=== PATIENT | female | born 1955 | race Caucasian/White ===

== ENCOUNTER 2020-01-31 00:34 | Outpatient (CLI) | payer OTHER, SELFPAY ==
[2020-01-31 17:33] LABS: SARS-CoV-2 RNA PCR Negative
== END 2020-01-31 00:35 | disposition home or self-care (01) ==
LOC: ANHCOVIDDT 00:35
PROVIDERS: Visit Provider Orthopaedic Surgery
DX: Z01.812 Encounter for preprocedural laboratory examination (principal); Z20.828 Contact with and (suspected) exposure to other viral communicable diseases
CPT/HCPCS: 87635; C9803; U0003

== ENCOUNTER 2020-01-31 09:35 | Outpatient (CLI) | payer OTHER, SELFPAY ==
--- NOTE | 2020-01-31 10:06 | ECG_ITS ---
Measurements Intervals [place] Rate: 97 P: 40 AL: 113 QRS: 38 QRSD: 88 T: 51 QT: 370 QTc: 471 Interpretive Statements SINUS RHYTHM WITH SHORT AL INTERVAL BORDERLINE T WAVE ABNORMALITY- INFERIOR LEADS BASELINE ARTIFACT- I, II, III BORDERLINE ECG Electronically Signed On 01-31-2020 10:31:36 CDT by Maurice Hall D.O.
== END 2020-01-31 09:36 | disposition home or self-care (01) ==
LOC: ANHLAB 09:37
PROVIDERS: Visit Provider Anesthesiology
DX: Z87.891 Personal history of nicotine dependence (principal); Z51.81 Encounter for therapeutic drug level monitoring; R94.31 Abnormal electrocardiogram [ECG] [EKG]
CPT/HCPCS: 36415; 93005

== ENCOUNTER 2020-02-03 16:45 | Inpatient (IN) | payer OTHER, SELFPAY ==
[2020-01-30 15:15] VITALS: BMI 47.5
[2020-02-02] VITALS (24 sets, daily range): BP systolic 135–185; BP diastolic 66–92; PULSE 60–96; RESP 10–22; TEMP 36.2–37; O2SAT 92–99; BMI 46.7; BMI 48.6
--- NOTE | 2020-02-02 10:53 | WPDANESEPPF ---
Anes - Initial Pre Proc Eval Procedure: Operation Date: 02/02/20 12:00 Proposed Procedures p Open Reduction Internal Fixation Right Distal Radius Fracture - Bryson Jernigan MD Date/Time: 02/02/20 10:53 Surgeon: Bryson Jernigan MD Pre Op Diagnosis: Right distal radius fracture Patient Data Age: 64 Gender: F Height: 5 ft 5 in Weight: 129.5 kg Allergies Allergy/AdvReac Type Severity Reaction Status Date / Time ACYCLOVIR SODIUM Allergy Severe HIVES Uncoded 01/30/20 15:16 OMEPRAZOLE MAGNESIUM AdvReac Intermediate CAUSES Uncoded 01/30/20 15:16 HYPERVENTILATION SYMPTOMS Home Medications Medication Instructions Recorded Confirmed Type aripiprazole 2 mg tablet 2 mg PO QPM 01/30/20 01/30/20 History duloxetine 20 mg capsule,delayed 20 mg PO BID 01/30/20 01/30/20 History release furosemide 20 mg tablet 20 mg PO QAM PRN 01/30/20 01/30/20 History lamotrigine 25 mg tablet 75 mg PO DAILY 01/30/20 01/30/20 History lorazepam 0.5 mg tablet 0.5 mg PO QID 01/30/20 01/30/20 History pantoprazole 20 mg tablet,delayed 20 mg PO QAM 01/30/20 01/30/20 History release sertraline 25 mg tablet 50 mg PO HS 01/30/20 01/30/20 History trazodone 50 mg tablet 50 mg PO HS 01/30/20 01/30/20 History Patient hx anesthesia problems: none Family hx anesthesia problems: none PMFSH Past Medical History Medical History Anxiety Bipolar 1 disorder Depression GERD (gastroesophageal reflux disease) SIMEON (obstructive sleep apnea) Surgical History Surgical History H/O gastric bypass H/O knee surgery H/O spinal fusion History of cholecystectomy Family History Family History Mother Hypertension Family history of diabetes mellitus in first degree relative Father Cancer Sibling Multiple sclerosis Social History Social History Smoking status: Former smoker Alcohol intake: never Additional living arrangements comments: Ed Su - Gender identity (if verbalized by the patient): Female Anes - Eval Final PreProcedure Day of Procedure 02/02/20 10:53 Patient weight: morbidly obese Heart: regular rate and rhythm Lungs: decreased breath sounds Airway: Mallampati scale class III Neurological: alert and oriented Last oral intake: >/= 8 hours ASA classification: III Emergent: no Anesthetic plan: proceed Anesthesia type and monitoring: general LMA and standard monitoring Informed Consent: The patient's anesthetic plan and its attendant risks and benefits were discussed with the patient/family/POA. Questions were solicited and answers provided to the satisfaction of the patient/family/POA.
[2020-02-02] MEDS: LACTATED RINGERS 1,000 ML 30 ML IV CONT (11:00)
--- NOTE | 2020-02-02 11:17 | WPDHPUPDATE1 ---
History and Physical Update Update Date/Time: 02/02/20 11:17 History and Physical has been reviewed, including an updated exam of the patient. There are NO changes in the patient's condition. Risks, benefits, and alternatives have been discussed and questions answered. Patient agrees to proceed with procedure.
[2020-02-02 11:38] LABS: Blood Urea Nitrogen 12 mg/dL (7-17); Calcium 8.9 mg/dL (8.4-10.2); Carbon Dioxide 30 mmol/L (22-30); Chloride 106 mmol/L (98-107); Estimated CRCL calculation 68 ml/min; Estimated Glomerular Filt Rate 56; Glucose 110 mg/dL (65-105); Sodium 139 mmol/L (137-145)
[2020-02-02] MEDS: ceFAZolin 3 GM/D5W 100 ML 100 ML IVPB (12:07)
[2020-02-02] MEDS: BUPIVACAINE/EPINEPHRINE 0.25% 50 ML VIAL 20 ML INFILTRATE (12:42)
--- NOTE | 2020-02-02 13:56 | PM.PROC ---
Procedure Note - Detailed Date of procedure: 02/02/20 Pre-op diagnosis: Right distal radius fracture Post-op diagnosis: same Procedure performed: ORIF right distal radius Description of procedure: The patient was identified and the proper side identified. she was taken back to the operating room, transferred to the or table positioning supine taking care to pad her torso and extremities. After general anesthetic induction and intubation, a nonsterile tourniquet was placed high on the right arm which was prepped and draped in the usual sterile fashion. The extremity was exsanguinated and tourniquet inflated to 250 mmHg remaining up for approximately 62 minutes. A volar longitudinal incision was made along the FCR tendon distally. The subcutaneous tissue was sharply dissected protecting neurovascular structures. The FCR tendon was released from its sheath and retracted ulnarly. This allowed for the deep fascia of the forearm to be divided longitudinally in line with the incision. Care was taken to protect the volar compartment structures as well as the radial nerve and radial vascular structures. The pronator quadratus was elevated off of the distal radius allowing for inspection of the fracture site. The fracture fragments were disimpacted and able to be realigned virtually anatomically with fluoroscopic assistance. They were secured in this position with a short narrow right plate from the DVR set. The plate was applied with fluoroscopic visualization to avoid penetration of the joint and to ensure optimal hardware placement. Once the plate was secure the overall construct was assessed fluoroscopically on the AP and lateral views. The virtually anatomic reduction was held very nicely. The construct was stable. The wound was irrigated with a copious amount of sterile antibiotic solution. Skin edges were reapproximated with two 0 strata fix and tissue adhesive. Sterile dressing was applied. Tourniquet was released. A well-padded short-arm volar wrist splint was fashioned. The procedure was well tolerated. There were no known intraoperative complications. Estimated blood loss was negligible. Anesthesia: GLMA Surgeon: Bryson Jernigan MD [employer] Worker: Chau Brown Estimated blood loss (mL): 20 Drains: No Packing: No Pathology: none sent Complications: No immediate complications Condition: stable Disposition: PACU
--- NOTE | 2020-02-02 14:37 | SUR.PHASEI ---
02/02/20 1437- family called w/update.
[2020-02-02] MEDS: LABETALOL HCL INJ 100 MG/20 ML VIAL IV PUSH (14:42)
--- NOTE | 2020-02-02 14:43 | SUR.PHASEI ---
02/02/20 1440- dr. aranda called for b/p. orders given. will medicate. states patient may be moved to op recovery to wean o2
--- NOTE | 2020-02-02 17:23 | SUR.PHASEII ---
1530 SPOUSE ED [address]ATED. 1615 DR ARREOLA AWARE PT UNABLE TO KEEP SATS >90% ON ROOM AIR. I.S. ORDERED & INSTRUCTED ON USE. PT GOAL 2100- ONLY ABLE TO REACH 1500. 1630 DR RODGERS AWARE THAT DR ARREOLA RECOMMENDS PT BEING ADMITTED FOR RESPIRATORY PRECAUTIONS. DR RODGERS STATES HE WILL ADMIT WITH HOSPITALIST MANAGEMENT OF RESPIRATORY. SPOUSE ED UPDATED. 1700 PT KEEPING SATS 94-96% ON 3L NC. 1710 SPOUSE ED UPDATED & ROOM NUMBER [id number] GIVEN.
[2020-02-02] MEDS: DULOXETINE HCL 20 MG CAPSULE.DR PO (18:22)
[2020-02-02] MEDS: DOCUSATE SODIUM 100 MG CAPSULE PO (18:22)
[2020-02-02] MEDS: ARIPIPRAZOLE 2 MG TABLET PO (18:23)
[2020-02-02] MEDS: SODIUM CHLORIDE 0.9% IV 1,000 ML 100 ML IV CONT (18:23)
--- NOTE | 2020-02-02 18:35 | ADMGEN ---
This patient, Leydi Su, was admitted to 2 Medical Room 247-. Patient/family oriented to hospital policies and general routines including ID bracelet, bed and alarms, visiting hours, pain management, procedures, bathroom and other care routines, personal items, smoking policy, room service/diet, and visiting hours. Valuables list has been completed. Information on how to activate the Rapid Response Team has been discussed. Patient/Family are encouraged to report perceived risks to care and to ask questions if they do not understand what they are told or what they should do.
[2020-02-02] MEDS: LORAZEPAM 0.5 MG TABLET PO (20:18)
[2020-02-02] MEDS: ceFAZolin 2 GM/D5W 50 ML 2 GM/50 ML BAG IVPB (20:18)
[2020-02-02] MEDS: TRAZODONE HCL 50 MG TABLET PO (20:19)
[2020-02-02] MEDS: SERTRALINE HCL 50 MG TABLET PO (20:19)
--- NOTE | 2020-02-02 23:43 | PM.IMCN ---
Assessment and Plan Assessment and plan (1) Fracture of right distal radius: Qualifiers: Encounter type: initial encounter Fracture type: closed Fracture morphology: Colles' Qualified Code(s): S52.531A - Colles' fracture of right radius, initial encounter for closed fracture Code(s): S52.501A - Unspecified fracture of the lower end of right radius, initial encounter for closed fracture Status: Acute Assessment and Plan: Postop day 0 Postop management per primary service. Postop pain management per primary service. (2) Obstructive sleep apnea on CPAP: Code(s): G47.33 - Obstructive sleep apnea (adult) (pediatric); Z99.89 - Dependence on other enabling machines and devices Status: Acute Assessment and Plan: The patient's postop hypoxia was likely related to her obstructive sleep apnea. Patient's oxygen saturations are stable on CPAP with her usual 3 L nasal cannula bleed in. (3) Bipolar disorder: Qualifiers: Active/Remission status: in remission of unspecified degree Qualified Code(s): F31.70 - Bipolar disorder, currently in remission, most recent episode unspecified Code(s): F31.9 - Bipolar disorder, unspecified Status: Acute Assessment and Plan: Continue the patient's home psychiatric medications. The patient does have mild QT prolongation her preop EKG. This is likely due to the patient's sertraline and trazodone. Given the fact that the patient has been stable on these medications for quite sometime will not make any acute adjustments to them. However, I would avoid adding any other QT prolonging medications such as Zofran. (4) Chronic constipation: Code(s): K59.09 - Other constipation Status: Acute Assessment and Plan: I will start the patient on MiraLax 17 gram p.o. daily. I also discussed the option of adding soluble fiber supplements when she is discharged home. She is aware that she may have increased constipation given her current narcotic use. HPI Data of Consult Consult date: 02/03/20 Requesting Physician: Bryson Jernigan MD Primary Care Provider: ADE,DARRELL Marcano Consult Narrative Narrative: Date and time of patient contact: 02/02/2020 at 11:00 p.m. Leydi Su is a 64 year old female with a past medical history of morbid obesity, obstructive sleep apnea, and bipolar disorder who presented to the hospital for a planned ORIF of the right wrist. The patient had been vacationing in [place] at the end of December when she stumbled walking up a gang plank while visiting a to her stuck traction she landed on the outstretched arm and suffered a distal radius fracture. Her wrist was splinted and she returned home. She reports significant pain with any movement of the wrist. She reports that since surgery her pain is been severe despite the pain medications provided. Postoperatively the patient had some hypoxia in the recovery room. It turns out that the patient has obstructive sleep apnea and is on chronic 3 L nasal cannula bled into her CPAP every night. She does have some shortness of breath on exertion and with conversation but is not much changed from baseline. She denies any cough, congestion, fevers or chills. She does have chronic constipation but does not use a stool softener. She will occasionally use Dulcolax as needed. She denies any hematochezia or melena. She does have come chronic leg swelling is unchanged from baseline. She reports that she had lost about 30 lb but over the last month or so has gained 20 lb back. She had had gastric bypass surgery many years ago and had gotten down to 140 lb at one point. She blames her weight gain on poor dietary choices and her psychiatric medications. She has not had any recent changes in her psychiatric medications. She does have chronic stress urinary incontinence that was unrelieved despite having a bladder suspension surgery in 2017. Noah
[2020-02-03] VITALS (19 sets, daily range): BP systolic 143–186; BP diastolic 56–98; PULSE 64–95; RESP 16–20; TEMP 36.1–36.9; O2SAT 84–97
--- NOTE | ~2020-02-03 | XR_ITS ---
EXAMINATION: XR surgery orthopedic DATE: 02/02/2020 13:25 INDICATION: ORIF distal right radial fracture. TECHNIQUE: 2 fluoroscopic spot images of the right wrist were obtained during procedure performed by Dr. Jernigan. Radiologist was not present for the imaging or procedure. The amount of fluoroscopy time us ed during this procedure was 0.4 minutes. COMPARISON: 02/09/2020 FINDINGS: Interval open reduction internal fixation of the previously seen comminuted extra articular fracture of the metaphyseal region of the distal right radius with volar T plate and screw fixation. Alignment post fixation appears near-anatomic. No other fractures identified. Bone island at the trapezium. Kathia int spaces appear normal. IMPRESSION: 1. Near-anatomic alignment post ORIF of a comminuted extra articular distal right radial fracture. Reviewed, dictated and finalized at location A. IMPRESSION: 1. Near-anatomic alignment post ORIF of a comminuted extra articular distal rig ht radial fracture.
--- NOTE | ~2020-02-03 | XR_ITS ---
EXAMINATION: XR chest 2V DATE: 02/03/2020 17:36 INDICATION: Shortness of breath. TECHNIQUE: Frontal and lateral views of the chest were obtained. COMPARISON: Chest 2 views 07/29/2017, chest CT 07/29/2017 FINDINGS: There is chronic mild elevation of right hemidiaphragm. There is mild atelectasis versus sc arring in the lower lung zones. There are small pleural effusions. No pneumothorax. The heart size is normal. IMPRESSION: 1. Mild atelectasis versus scarring in the lower lung zones. 2. Small pleural effusions. Reviewed, dictated and finalized at location A.
[2020-02-03] MEDS: SODIUM CHLORIDE 0.9% IV 1,000 ML 100 ML IV CONT (04:58)
[2020-02-03] MEDS: ceFAZolin 2 GM/D5W 50 ML 2 GM/50 ML BAG IVPB ×3 (04:58→21:29)
[2020-02-03] MEDS: lamoTRIgine 25 MG TABLET 75 MG PO (08:29)
[2020-02-03] MEDS: PANTOPRAZOLE SOD SESQUIHYDRATE 20 MG TAB PO (08:30)
[2020-02-03] MEDS: DOCUSATE SODIUM 100 MG CAPSULE PO ×2 (08:30→17:23)
[2020-02-03] MEDS: polyethylene glycoL 3350 17 GM POWD.PACK PO (08:30)
[2020-02-03] MEDS: FUROSEMIDE 20 MG TABLET PO (08:30)
[2020-02-03] MEDS: DULOXETINE HCL 20 MG CAPSULE.DR PO ×2 (08:30→17:23)
[2020-02-03] MEDS: LORAZEPAM 0.5 MG TABLET PO ×4 (08:41→21:29)
--- NOTE | 2020-02-03 09:46 | PM.PNORT ---
Progress Note: A&P Assessment and Plan (1) Fracture of right distal radius: Qualifiers: Encounter type: initial encounter Fracture type: closed Fracture morphology: Colles' Qualified Code(s): S52.531A - Colles' fracture of right radius, initial encounter for closed fracture Code(s): S52.501A - Unspecified fracture of the lower end of right radius, initial encounter for closed fracture Status: Acute (2) Obstructive sleep apnea on CPAP: Code(s): G47.33 - Obstructive sleep apnea (adult) (pediatric); Z99.89 - Dependence on other enabling machines and devices Status: Acute Assessment and Plan: 64-year-old female postop day one right distal radius fracture ORIF. Regarding fracture she is doing fine. She apparently is going to be having a home O2 evaluation. Once recommendations are made she will be able to be discharged home I believe. She already has a follow-up with me in about two weeks. She was instructed to call with any questions prior to this. Her surgery was discussed in detail with her. Subjective Subjective Date/Time Seen: 02/03/20 09:46 Post Op day: 1 Principal diagnosis: Status post ORIF right distal radius fracture Interval history: 64-year-old female who had ORIF of right distal radius fracture yesterday. She was having difficulty keeping her sats up yesterday and so was admitted for observation. Had an un eventful night but did get a little lightheaded earlier today when she got up to go to the bathroom. That is being looked into by the hospitalist group. Review of Systems Constitutional: Constitutional: Denies chills and Denies fever(s) Eyes: Eyes: Reports no additional eye complaints ENT: Reports system reviewed and no additional complaints, except as documented Cardiovascular: Cardiovascular: Denies chest pain and Reports dyspnea on exertion (Mildly short of breath while walking today) Respiratory: Respiratory: Reports no additional respiratory complaints and Denies dyspnea on exertion Gastrointestinal: Gastrointestinal: Denies abdominal pain and Denies bloating Exam Const: General: cooperative, no acute distress and alert Nutritional Appearance: other Orientation/consciousness: patient oriented x3 Limitations: no limitations Resp: Effort & Inspection: normal respiratory effort and able to speak in complete sentences GI: Inspection: other Skin: General skin exam: normal color Rashes: no rashes Neuro: General: patient oriented x3 Cognition (Neuro): normal cognition Speech: normal speech Gait exam (Neuro): Other gait observations present Motor exam (neuro): Other motor observations present (Grossly intact to extremities) Sensory Exam: normal sensation Extrem: General: normal to inspection and other Other: Exam of her right upper extremity shows well-positioned splint. Bruising and digits as expected. Full digital motion noted. Intact sensation to all the digits with good capillary refill to the tips of her fingers. Dressing is dry. Objective Data Vital Signs Vital Signs: Vital Signs - 24 hr 02/02/20 13:44 02/02/20 14:00 02/02/20 14:15 Temperature 97.2 F L Pulse Rate 95 96 96 Respiratory Rate 10 L 19 22 H Blood Pressure 157/78 H 167/72 H 178/82 H Pulse Oximetry 96 96 93 02/02/20 14:30 02/02/20 14:42 02/02/20 14:44 Temperature Pulse Rate 95 93 95 Respiratory Rate 21 H 21 H Blood Pressure 175/77 H 185/85 H Pulse Oximetry 93 95 02/02/20 14:55 02/02/20 14:58 02/02/20 15:01 Temperature Pulse Rate 67 78 Respiratory Rate 22 H 22 H Blood Pressure 160/71 H 155/82 H Pulse Oximetry 95 95 96 02/02/20 15:30 02/02/20 16:00 02/02/20 16:30 Temperature Pulse Rate 83 87 87 Respiratory Rate 22 H 22 H 22 H Blood Pressure 136/86 135/70 138/72 Pulse Oximetry 92 93 94 02/02/20 17:00 02/02/20 17:20 02/02/20 17:45 Temperature 98.0 F Pulse Rate 83 69 87 Respiratory Rate 20 20 19 Blood Pressure 159/67 H 160/66 H 146/
--- NOTE | 2020-02-03 11:00 | WPDANESPN ---
Anes - Prog Note Post-Op Date/Time: 02/03/20 11:00 Cardiovascular status: normal Respiratory status: normal Airway patency: baseline Mental status: baseline Post-Op hydration status: normal Vital Signs: Last Vital Signs Temp 36.9 C 02/03/20 10:00 Pulse 78 02/03/20 10:00 Resp 18 02/03/20 10:00 BP 143/67 H 02/03/20 10:00 Pulse Ox 95 02/03/20 10:00 I/O: Intake & Output 02/02/20 02/03/20 02/03/20 23:59 07:59 15:59 Intake Total 200 1240 210 Balance 200 1240 210 Laboratory Tests 02/02/20 11:19 02/02/20 11:19 Sodium 139 Potassium 4.0 Chloride 106 Carbon Dioxide 30 BUN 12 Creatinine 1.00 Estim Creat Clear Calc 68 Estimated GFR 56 L Glucose 110 H Calcium 8.9 Post-procedural complaints: none Patient Feedback: Patient satisfied with anesthetic care.
--- NOTE | 2020-02-03 13:03 | PCRCNOTE ---
Home oxygen evaluation done, patient requires 3L with activity .
--- NOTE | 2020-02-03 13:18 | HOMEO2EVAL ---
Home Oxygen Evaluation RC: Home Oxygen (O2) Evaluation Start: 02/03/20 10:20 Freq: ONCE Status: Active Protocol: RPE Activity Type Activity Date Activity User E-Sign Co-Sign Detail Recorded Client Recorded Date Recorded By Document 02/03/20 12:25 [email or web address] [email or web address] 02/03/20 13:03 DLW Document 02/03/20 12:30 DLW [email or web address] 02/03/20 13:03 DLW Document 02/03/20 12:33 DLW [email or web address] 02/03/20 13:03 DLW Document 02/03/20 12:35 [email or web address] [email or web address] 02/03/20 13:03 DLW 02/03/20 02/03/20 02/03/20 12:25 12:30 12:33 Home O2 Evaluation Test Phase Resting Exercise Exercise Oxygen Delivery Room Air Nasal Cannula Oxygen Flow Rate (L/min) 2 Pulse Oximetry (90-100 %) 94 84 L 87 L Pulse Rate (60-100 beats/min) 86 88 94 Activity Tolerance Good Good Rating of Perceived Dyspnea (PD) +1 Mild, +1 Mild, Noticeable to Noticeable to the Participant the Participant but Not to an but Not to an Observer Observer Ambulation Distance (feet) 75 75 Treatment Charges O2 Evaluation 02/03/20 12:35 Home O2 Evaluation Test Phase Exercise Oxygen Delivery Nasal Cannula Oxygen Flow Rate (L/min) 3 Pulse Oximetry (90-100 %) 94 Pulse Rate (60-100 beats/min) 95 Activity Tolerance Good Rating of Perceived Dyspnea (PD) +1 Mild, Noticeable to the Participant but Not to an Observer Ambulation Distance (feet) 75 Treatment Charges
--- NOTE | 2020-02-03 13:35 | PM.IMPN ---
Progress Note: A&P Assessment and Plan (1) Fracture of right distal radius: Qualifiers: Encounter type: initial encounter Fracture morphology: Colles' Fracture type: closed Qualified Code(s): S52.531A - Colles' fracture of right radius, initial encounter for closed fracture Code(s): S52.501A - Unspecified fracture of the lower end of right radius, initial encounter for closed fracture Status: Acute Assessment and Plan: She is POD#1 ORIF right distal radius. She reports she is doing well and her pain is well controlled. Postop management and pain control per Dr. Jernigan (2) Postoperative hypoxia: Code(s): R09.02 - Hypoxemia; Z98.890 - Other specified postprocedural states Status: Acute Assessment and Plan: Patient became hypoxic in recovery following scheduled outpatient procedure. She became SOB and very slightly dizzy upon returning from the bathroom this morning, which improved with rest. She is currently on 3L per NC and maintaining adequate oxygenation. Home O2 eval was ordered and patient now requiring 3L O2 with exertion, previously not requiring any oxygen with activity Patient was hopeful for discharge today, but given this acute increase in oxygen requirements, I believe further workup is necessary Will obtain CXR to assess for underlying etiology. Differential diagnoses include pneumonia or possible COPD given her smoking history (3) Obstructive sleep apnea on CPAP: Code(s): G47.33 - Obstructive sleep apnea (adult) (pediatric); Z99.89 - Dependence on other enabling machines and devices Status: Acute Assessment and Plan: Patient uses CPAP nightly with 3L O2 nasal cannula bled in. Her recent hypoxia may be related to SIMEON. Continue CPAP use (4) Lower extremity edema: Code(s): R60.0 - Localized edema Status: Acute Assessment and Plan: Patient has 2+ pitting edema. She reports chronic edema but believes it has worsened, likely due to IV fluid rehydration. She does have prn Lasix as a home medication. IV fluids have been discontinued Will administer Lasix 20 mg IV Possible etiology is CHF, in which case this may be contributing to her SOB. Will check CXR and BNP. (5) Falls: Code(s): W19.XXXA - Unspecified fall, initial encounter Status: Acute Assessment and Plan: Patient reports weakness in her legs and occasional falls. She injured her radius in a fall. She reports she was walking normally, became weak, and fell. I will ask PT to evaluate patient and recommendations are appreciated. Patient would benefit from a low intensity exercise program such as regular walking. (6) Chronic constipation: Code(s): K59.09 - Other constipation Status: Acute Assessment and Plan: Patient is frequently constipated. Likely worsened by narcotic pain medication. Continue Miralax and stool softener (7) Bipolar disorder: Qualifiers: Active/Remission status: in remission of unspecified degree Qualified Code(s): F31.70 - Bipolar disorder, currently in remission, most recent episode unspecified Code(s): F31.9 - Bipolar disorder, unspecified Status: Acute Assessment and Plan: Stable at this time. Patient is on several psychiatric medications. Continue the patient's home psychiatric medications. Mildly prolonged QT is noted and likely secondary to medication use. Subjective Date/time seen: 02/03/20 13:35 Interval history: Date of service: 02/03/2020 She reports she is feeling okay today. Her wrist pain is reasonably well controlled. She became slightly dizzy when returning from the bathroom this morning, and she believed this was due to being short of breath. This resolved shortly after resting. She tells me that for some time now, she has noticed she has been weaker in her legs, occasionally becomes dizzy with ambulation, and often becomes sh
[2020-02-03] MEDS: ARIPIPRAZOLE 2 MG TABLET PO (17:23)
[2020-02-03] MEDS: FUROSEMIDE INJ 40 MG/4 ML VIAL 20 MG IV PUSH (17:23)
[2020-02-03 19:49] LABS: NT Pro B Type Natriuretic Pept 1530 PG/ML (5-100)
[2020-02-03] MEDS: SERTRALINE HCL 50 MG TABLET PO (21:29)
[2020-02-03] MEDS: TRAZODONE HCL 50 MG TABLET PO (21:29)
[2020-02-04 06:00] VITALS: BP 165/77; PULSE 76; RESP 12; TEMP 36.7; O2SAT 98
[2020-02-04] MEDS: polyethylene glycoL 3350 17 GM POWD.PACK PO (08:16)
[2020-02-04] MEDS: DULOXETINE HCL 20 MG CAPSULE.DR PO ×2 (08:16→17:15)
[2020-02-04] MEDS: DOCUSATE SODIUM 100 MG CAPSULE PO ×2 (08:16→17:14)
[2020-02-04] MEDS: lamoTRIgine 25 MG TABLET 75 MG PO (08:16)
[2020-02-04] MEDS: PANTOPRAZOLE SOD SESQUIHYDRATE 20 MG TAB PO (08:16)
[2020-02-04] MEDS: LORAZEPAM 0.5 MG TABLET PO ×4 (08:25→20:07)
[2020-02-04 09:02] VITALS: O2SAT 97
--- NOTE | 2020-02-04 11:09 | PM.IMPN ---
Progress Note: A&P Assessment and Plan (1) Postoperative hypoxia: Code(s): R09.02 - Hypoxemia; Z98.890 - Other specified postprocedural states Status: Acute Assessment and Plan: Patient became hypoxic in recovery following scheduled outpatient procedure. She is currently on 3L per NC and maintaining adequate oxygenation. She typically requires 3L only at night. Home O2 eval was ordered and patient now requiring 3L O2 with exertion. CXR reveals mild atelectasis in lower lung and small pleural effusions. Continue supplemental oxygen as needed to achieve pulse ox 92% or above. Continue incentive spirometer Plan to repeat home O2 eval tomorrow following adequate diuresis. I believe SOB is related to fluid overload. (2) Heart failure: Code(s): I50.9 - Heart failure, unspecified Status: Suspected Assessment and Plan: Patient has 2+ pitting edema, likely due to IV fluid rehydration. She reports chronic edema but believes it has worsened. I suspect that her SOB may be related to possible heart failure. BNP was elevated at 1530. CXR reveals normal heart size but does demonstrate small pleural effusions. Patient is increasingly short of breath. Continue IV Lasix Plan for Echo tomorrow (3) Fracture of right distal radius: Qualifiers: Encounter type: initial encounter Fracture morphology: Colles' Fracture type: closed Qualified Code(s): S52.531A - Colles' fracture of right radius, initial encounter for closed fracture Code(s): S52.501A - Unspecified fracture of the lower end of right radius, initial encounter for closed fracture Status: Acute Assessment and Plan: She is POD#2 ORIF right distal radius. She reports she is doing well and her pain is well controlled. Postop management and pain control per Dr. Jernigan (4) Obstructive sleep apnea on CPAP: Code(s): G47.33 - Obstructive sleep apnea (adult) (pediatric); Z99.89 - Dependence on other enabling machines and devices Status: Acute Assessment and Plan: Patient uses CPAP nightly with 3L O2 nasal cannula bled in. Her recent hypoxia may be related to SIMEON. She may have right heart strain related to SIMEON. Continue CPAP titrated to home settings. (5) Falls: Code(s): W19.XXXA - Unspecified fall, initial encounter Status: Acute Assessment and Plan: Patient reports weakness in her legs and occasional falls. She injured her radius in a fall. She reports she was walking normally, became weak, and fell. Continue PT and OT. Their recommendations are appreciated. (6) Chronic constipation: Code(s): K59.09 - Other constipation Status: Acute Assessment and Plan: Patient is frequently constipated. Likely worsened by narcotic pain medication. She did have a bowel movement this morning. Continue Miralax and stool softener (7) Bipolar disorder: Qualifiers: Active/Remission status: in remission of unspecified degree Qualified Code(s): F31.70 - Bipolar disorder, currently in remission, most recent episode unspecified Code(s): F31.9 - Bipolar disorder, unspecified Status: Acute Assessment and Plan: Stable at this time. Patient is on several psychiatric medications. Mildly prolonged QT is noted and likely secondary to medication use. Continue the patient's home psychiatric medications. Subjective Date/time seen: 02/04/20 11:09 Interval history: Date of service: 02/04/2020 She is doing about the same today. She continues to endorse SOB and PINEDA. She also reports that she again got mildly lightheaded upon returning from the bathroom this morning. She has occasional cough. She endorses generalized weakness. She believes her lower extremity edema has improved. She is urinating frequently due to lasix. She had a bowel movement this morning. She denies chest pain, palpitations, nausea, vomiting, abdominal pain, fev
[2020-02-04] MEDS: FUROSEMIDE INJ 40 MG/4 ML VIAL IV PUSH (11:21)
[2020-02-04 14:00] VITALS: BP 155/87; PULSE 70; RESP 18; TEMP 36.5; O2SAT 100
[2020-02-04 15:13] LABS: Basophils Absolute Auto 0.1 K/mm3 (0.0-0.1); Basophils Percent Auto 0.6 % (0.2-1.2); Eosinophils Absolute Auto 0.2 K/mm3 (0-0.3); Eosinophils Percent Auto 1.6 % (0-4.4); Hematocrit 43.3 % (37.0-47.0); Hemoglobin 13.9 g/dL (12.0-15.0); Immature Granulocyte Absolute 0.04 K/mm3 (0.00-0.031); Immature Granulocyte Percent A 0.4 % (0-0.5); Lymphocytes Absolute Auto 1.34 K/mm3 (0.9-3.2); Lymphocytes Percent Auto 14.5 % (18.3-44.2); Mean Corpuscular HGB Conc 32.1 g/dl (32-36); Mean Corpuscular Hemoglobin 30.8 pg (26-34); Mean Platelet Volume 8.5 fl (7.4-10.4); Monocytes Absolute Auto 0.7 K/mm3 (0.1-0.6); Monocytes Percent Auto 7.6 % (2.6-8.5); Neutrophils Percent Auto 75.3 % (45.5-73.1); Platelet Count Result 252 k/mm3 (150-375); Red Blood Count 4.51 M/mm3 (4.2-5.4); Red Cell Distribution Width 13.8 % (11.5-14.5); White Blood Count 9.3 K/mm3 (4.5-10.0)
[2020-02-04 15:25] LABS: Alanine Aminotransferase 12 U/L (4-35); Albumin Level 4.5 g/dL (3.5-5.1); Alkaline Phosphatase 85 U/L (38-126); Aspartate Amino Transferase 32 U/L (14-36); Bilirubin,Total 0.7 mg/dL (0.2-1.3); Blood Urea Nitrogen 10 mg/dL (7-17); Calcium 9.1 mg/dL (8.4-10.2); Carbon Dioxide 34 mmol/L (22-30); Chloride 97 mmol/L (98-107); Estimated CRCL calculation 68 ml/min; Estimated Glomerular Filt Rate 56; Glucose 97 mg/dL (65-105); Potassium 3.5 mmol/L (3.4-5.0); Sodium 140 mmol/L (137-145)
[2020-02-04] MEDS: ARIPIPRAZOLE 2 MG TABLET PO (17:15)
[2020-02-04 19:04] VITALS: O2SAT 95
[2020-02-04] MEDS: TRAZODONE HCL 50 MG TABLET PO (20:07)
[2020-02-04] MEDS: SERTRALINE HCL 50 MG TABLET PO (20:07)
[2020-02-04 21:36] VITALS: BP 182/61; PULSE 91; RESP 18; TEMP 36.7; O2SAT 100
--- NOTE | 2020-02-04 21:58 | PC.NURSE ---
patient refuses gel pads to right wrist/arm. states causes increased pain.
[2020-02-04 22:15] VITALS: PULSE 86; RESP 24; O2SAT 94
[2020-02-05] VITALS (9 sets, daily range): BP systolic 110–152; BP diastolic 67–77; PULSE 76–129; RESP 16–26; TEMP 36.3–36.8; O2SAT 87–100
--- NOTE | 2020-02-05 | ECHO_ITS ---
Patient Info Name: Leydi Su Age: 64 years : 1955 Gender: Female Ht: 64 in Wt: 283 lbs BSA: 2.49 m2 HR: 80 bpm BP: 152 / 77 mmHg Heart Rhythm: Sinus Rhythm Technical Quality: Good Exam Date: 02/05/2020 10:28 AM Exam Location: [facility] Patient Status: Inpatient Admit Date: 02/03/2020 Staff Ordering Physician: Jennifer Michelle PA-C Mooner: Agus Llamas, EDWIN, RT Attending Provider: Bryson Jernigan MD Referring Physician: Viviana ORELLANA; Exam Type: CA echo dop color flow w con Study Info Complete two-dimensional, color flow and Doppler transthoracic echocardiogram is performed with contrast to opacify the left ventricle and to improve the deliniation of the left ventricle endocardial borders. Summary 1. Left ventricular systolic function is normal, estimated at 65-70%. 2. There is mildly increased left ventricular wall thickness. 3. The left ventricular diastolic function is grade I diastolic dysfunction. 4. The aortic valve is not well visualized. 5. There is mild aortic valve stenosis with a peak velocity of 193.39 cm/s, mean gradient of 6 mmHg, and aortic valve area of 2.00 cm2. 6. There is trace mitral valve regurgitation. 7. Unable to estimate PA systolic pressure due to poor spectral resolution of tricuspid regurgitant jet velocity. 8. Technically difficult study with limited views. Left Ventricle Left ventricular chamber dimension is normal. Left ventricular systolic function is normal, estimated at 65-70%. There is mildly increased left ventricular wall thickness. The left ventricular diastolic function is grade I diastolic dysfunction. Right Ventricle Right ventricular chamber dimension is not well visualized. Left Atria Left atrial chamber dimension is mildly enlarged. Right Atria Right atrial chamber dimension is mildly enlarged. Aortic Valve The aortic valve is not well visualized. There is mild aortic valve stenosis with a peak velocity of 193.39 cm/s, mean gradient of 6 mmHg, and aortic valve area of 2.00 cm2. There is no aortic valve regurgitation. Pulmonic Valve The pulmonic valve is not well visualized. There is trace pulmonic regurgitation. Mitral Valve The mitral valve has not well visualized. There is trace mitral valve regurgitation. The mitral valve annulus is mildly calcified. Tricuspid Valve The tricuspid valve leaflets are not well visualized. Unable to estimate PA systolic pressure due to poor spectral resolution of tricuspid regurgitant jet velocity. Pericardium/Pleural The pericardium appears not well visualized. Inferior Vena Cava Normal inferior vena cava with >50% collapse upon inspiration consistent with normal right atrial pressure, 5 mmHg. Aorta The aortic root size at the sinus of Valsalva is normal. Left Ventricular Outflow Tract Name Value Normal LVOT 2D LVOT Diameter 1.87 cm LVOT Doppler LVOT Peak Gradient 6 mmHg LVOT Mean Gradient 3 mmHg LVOT VTI 24.81 cm LVOT VTI/AV VTI Ratio 0.72 LVOT Stroke Volu
[2020-02-05 05:40] LABS: Basophils Percent Auto 0.6 % (0.2-1.2); Eosinophils Absolute Auto 0.2 K/mm3 (0-0.3); Eosinophils Percent Auto 2.4 % (0-4.4); Hematocrit 43.1 % (37.0-47.0); Hemoglobin 14.1 g/dL (12.0-15.0); Immature Granulocyte Absolute 0.04 K/mm3 (0.00-0.031); Immature Granulocyte Percent A 0.6 % (0-0.5); Lymphocytes Absolute Auto 1.37 K/mm3 (0.9-3.2); Lymphocytes Percent Auto 19.4 % (18.3-44.2); Mean Corpuscular HGB Conc 32.7 g/dl (32-36); Mean Corpuscular Hemoglobin 31.3 pg (26-34); Mean Corpuscular Volume 95.8 fl (80-100); Mean Platelet Volume 8.6 fl (7.4-10.4); Monocytes Absolute Auto 0.6 K/mm3 (0.1-0.6); Monocytes Percent Auto 7.9 % (2.6-8.5); Neutrophils Absolute Auto 4.9 K/mm3 (1.3-6.7); Neutrophils Percent Auto 69.1 % (45.5-73.1); Platelet Count Result 264 k/mm3 (150-375); Red Cell Distribution Width 13.7 % (11.5-14.5); White Blood Count 7.1 K/mm3 (4.5-10.0)
[2020-02-05 05:54] LABS: Alanine Aminotransferase 12 U/L (4-35); Albumin Level 4.1 g/dL (3.5-5.1); Alkaline Phosphatase 81 U/L (38-126); Aspartate Amino Transferase 31 U/L (14-36); Bilirubin,Total 0.8 mg/dL (0.2-1.3); Blood Urea Nitrogen 11 mg/dL (7-17); Calcium 8.8 mg/dL (8.4-10.2); Carbon Dioxide 37 mmol/L (22-30); Chloride 95 mmol/L (98-107); Estimated CRCL calculation 75 ml/min; Estimated Glomerular Filt Rate > 60; Glucose 102 mg/dL (65-105); Potassium 3.4 mmol/L (3.4-5.0); Sodium 138 mmol/L (137-145)
[2020-02-05] MEDS: DULOXETINE HCL 20 MG CAPSULE.DR PO (07:55)
[2020-02-05] MEDS: LORAZEPAM 0.5 MG TABLET PO ×2 (07:55→12:43)
[2020-02-05] MEDS: lamoTRIgine 25 MG TABLET 75 MG PO (07:55)
[2020-02-05] MEDS: PANTOPRAZOLE SOD SESQUIHYDRATE 20 MG TAB PO (07:55)
[2020-02-05] MEDS: DOCUSATE SODIUM 100 MG CAPSULE PO (07:56)
[2020-02-05] MEDS: FUROSEMIDE INJ 40 MG/4 ML VIAL IV PUSH (07:56)
[2020-02-05] MEDS: PERFLUTREN LIPID MICROSPHERES 1.5 ML VIAL DILUTED TO 10 ML TOTAL VOLUME IV PUSH (10:59)
--- NOTE | 2020-02-05 14:16 | HOMEO2EVAL ---
Home Oxygen Evaluation RC: Home Oxygen (O2) Evaluation Start: 02/04/20 14:47 Freq: ONCE Status: Active Protocol: RPE Activity Type Activity Date Activity User E-Sign Co-Sign Detail Recorded Client Recorded Date Recorded By Document 02/05/20 13:40 [email or web address] [email or web address] 02/05/20 14:15 ABIODUN Document 02/05/20 13:42 [email or web address] [email or web address] 02/05/20 14:15 ABIODUN Document 02/05/20 13:44 ABIODUN [email or web address] 02/05/20 14:15 ABIODUN Document 02/05/20 13:45 [email or web address] 02/05/20 14:15 ABIODUN Document 02/05/20 13:48 ABIODUN [email or web address] 02/05/20 14:15 ABIODUN Document 02/05/20 13:55 ABIODUN [email or web address] 02/05/20 14:15 ABIODUN 02/05/20 02/05/20 02/05/20 13:40 13:42 13:44 Home O2 Evaluation Test Phase Exercise Exercise Exercise Oxygen Delivery Room Air Nasal Cannula Nasal Cannula Oxygen Flow Rate (L/min) 1 2 Pulse Oximetry (90-100 %) 87 L 87 L 87 L Pulse Rate (60-100 beats/min) 100 111 H 128 H Activity Tolerance Home Oxygen Evaluation Comments Treatment Charges 02/05/20 02/05/20 02/05/20 13:45 13:48 13:55 Home O2 Evaluation Test Phase Resting Exercise Resting Oxygen Delivery Room Air Nasal Cannula Room Air Oxygen Flow Rate (L/min) 3 Pulse Oximetry (90-100 %) 94 90 93 Pulse Rate (60-100 beats/min) 92 129 H 93 Activity Tolerance Good Home Oxygen Evaluation Comments PT REQUIRES 3 L WITH ACTIVITY/ EXERTION Treatment Charges O2 Evaluation
--- NOTE | 2020-02-05 14:23 | HOMEO2EVAL ---
Home Oxygen Evaluation RC: Home Oxygen (O2) Evaluation Start: 02/04/20 14:47 Freq: ONCE Status: Active Protocol: RPE Activity Type Activity Date Activity User E-Sign Co-Sign Detail Recorded Client Recorded Date Recorded By Document 02/05/20 13:40 [email or web address] [email or web address] 02/05/20 14:15 ABIODUN Document 02/05/20 13:42 ABIODUN [email or web address] 02/05/20 14:15 ABIODUN Document 02/05/20 13:44 ABIODUN [email or web address] 02/05/20 14:15 ABIODUN Document 02/05/20 13:45 ABIODUN [email or web address] 02/05/20 14:15 ABIODUN Document 02/05/20 13:48 ABIODUN [email or web address] 02/05/20 14:15 ABIODUN Document 02/05/20 13:55 [email or web address] [email or web address] 02/05/20 14:15 ABIODUN 02/05/20 02/05/20 02/05/20 13:40 13:42 13:44 Home O2 Evaluation Test Phase Resting Exercise Exercise Oxygen Delivery Room Air Room Air Nasal Cannula Oxygen Flow Rate (L/min) 1 Pulse Oximetry (90-100 %) 93 87 L 87 L Pulse Rate (60-100 beats/min) 100 111 H 128 H Activity Tolerance Home Oxygen Evaluation Comments Treatment Charges 02/05/20 02/05/20 02/05/20 13:45 13:48 13:55 Home O2 Evaluation Test Phase Exercise Exercise Resting Oxygen Delivery Nasal Cannula Nasal Cannula Room Air Oxygen Flow Rate (L/min) 2 3 Pulse Oximetry (90-100 %) 87 L 90 93 Pulse Rate (60-100 beats/min) 125 H 129 H 93 Activity Tolerance Good Home Oxygen Evaluation Comments PT REQUIRES 3 L WITH ACTIVITY/ EXERTION Treatment Charges O2 Evaluation
--- NOTE | 2020-02-06 16:19 | PM.DS ---
DS: Admitting Diagnosis Admitting Diagnosis Admitting Diagnosis: Postoperative Hypoxia DS: Discharge Diagnosis Discharge Diagnosis (1) Postoperative hypoxia: Code(s): R09.02 - Hypoxemia; Z98.890 - Other specified postprocedural states Status: Acute Assessment and Plan: Patient became hypoxic in recovery following scheduled outpatient procedure. She required 3L O2 for stable oxygenation. She typically requires 3L only at night. Home O2 eval was ordered and patient now requires 3L O2 with exertion and at night. CXR revealed mild atelectasis in lower lung and small pleural effusions. I suspect her increased oxygen requirement is multifactorial given possible CHF exacerbation following IV fluids and SIMEON. (2) Diastolic dysfunction: Code(s): I51.89 - Other ill-defined heart diseases Status: Acute Assessment and Plan: Echocardiogram demonstrated grade I diastolic dysfunction. Patient had 2+ pitting edema and BNP was elevated at 1530. I suspect her increased SOB was secondary to fluid overload. She was diuresed with IV Lasix. Her 20 mg home Lasix was transitioned from prn to daily. (3) Fracture of right distal radius: Qualifiers: Encounter type: initial encounter Fracture type: closed Fracture morphology: Colles' Qualified Code(s): S52.531A - Colles' fracture of right radius, initial encounter for closed fracture Code(s): S52.501A - Unspecified fracture of the lower end of right radius, initial encounter for closed fracture Status: Acute Assessment and Plan: She underwent ORIF right distal radius on 02/02/[address] Jernigan. She will follow up with Dr. Jernigan in 2 weeks. (4) Obstructive sleep apnea on CPAP: Code(s): G47.33 - Obstructive sleep apnea (adult) (pediatric); Z99.89 - Dependence on other enabling machines and devices Status: Acute Assessment and Plan: Patient uses CPAP nightly with 3L O2 nasal cannula bled in. I suspect this plays a role in her hypoxia. (5) Falls: Code(s): W19.XXXA - Unspecified fall, initial encounter Status: Acute Assessment and Plan: Patient reports weakness in her legs and occasional falls. She was evaluated by PT and OT and determined to be stable with ambulation. (6) Chronic constipation: Code(s): K59.09 - Other constipation Status: Acute Assessment and Plan: She reported frequent constipation that was likely worsened by narcotic pain medication. She should continue miralax and stool softeners as needed. (7) Bipolar disorder: Qualifiers: Active/Remission status: in remission of unspecified degree Qualified Code(s): F31.70 - Bipolar disorder, currently in remission, most recent episode unspecified Code(s): F31.9 - Bipolar disorder, unspecified Status: Acute Assessment and Plan: Remained stable with home psychiatric medications. Mildly prolonged QT was noted and likely secondary to medication use. DS: Summary Hospital Course Reason for hospitalization: Postoperative hypoxia Hospital Course: Date of admission: 02/02/2020 Date of discharge: 02/05/2020 Leydi Su is a 64 year old female with a PMH significant for SIMEON< GERD, and bipolar disorder who was admitted to the hospital following a scheduled ORIF of right distal radius on 02/02/[address] Jernigan. She became hypoxic while in recovery following the procedure. She is chronically on 3L O2 at night bled into CPAP. She became progressively more SOB, which I suspect was related to fluid overload in combination with SIMEON. She was diuresed and began feeling much better. A home O2 evaluation indicated that she would now require 3L O2 with exertion as well. Given suspicion for CHF, she had an Echocardiogram performed on 02/05/2020 which demonstrated normal EF, grade I diastolic dysfunction, mild , and trace MR. Results of her echo were unavailable at time of discharge, and she will fol
== END 2020-02-05 16:15 | disposition home or self-care (01) | DRG 511 ==
LOC: ANHSURGERY 02-08 10:02 → ANH2MED 02-08 10:02
PROVIDERS: Anesthesiology; Physician Assistant; Admitting Provider Orthopaedic Surgery; PCP Internal Medicine; Visit Provider Internal Medicine
PROC: 0PSH04Z Reposition Right Radius with Internal Fixation Device, Open Approach (ICD-10-PCS; CPT 25575; principal; 2020-02-02 12:00)
DX: S52.551A Other extraarticular fracture of lower end of right radius, initial encounter for closed fracture (principal); Z68.42 Body mass index [BMI] 45.0-49.9, adult; G47.33 Obstructive sleep apnea (adult) (pediatric); R09.02 Hypoxemia; F31.9 Bipolar disorder, unspecified; K59.09 Other constipation; E66.01 Morbid (severe) obesity due to excess calories; K21.9 Gastro-esophageal reflux disease without esophagitis; Z96.652 Presence of left artificial knee joint; Z98.1 Arthrodesis status; Z98.84 Bariatric surgery status; Z90.49 Acquired absence of other specified parts of digestive tract; Z87.891 Personal history of nicotine dependence
CPT/HCPCS: 36415; 71046; 80048; 80053; 83880; 85025; 93306; 94618; 97116; 97161; 97165; A4565; A9270; C1713; C8929; J0690; J1100; J1170; J1940; J2250; J2405; J2704; J3010; J7030; J7120; Q9957

== ENCOUNTER 2020-03-15 13:27 | Outpatient (CLI) | payer OTHER, SELFPAY ==
--- NOTE | 2020-03-17 12:15 | WPDPFTINT ---
PFT Interpretation PFT Interpretation: This PFT met all criteria for ATS standards and reproducibility FEV/FVC post bronchodilator 88% of predicted FEV1 90% or 1.98 liters FVC 75% or 2.25 liters TLC 81% or 3.96 liters RV 86% RV/TLC 41% DLCO 56% when adjusted for alveolar volume but not adjusted for hemoglobin Flow volume loops were normal Impression: No significant obstruction or restriction. Moderately decreased diffusion capacity. In the absence of anemia or pulmonary hypertension, intrinsic lung disease may be present. Clinical correlation is advised.
== END 2020-03-15 13:28 | disposition home or self-care (01) ==
PROVIDERS: Visit Provider Internal Medicine Cardiovascular Disease
DX: R06.00 Dyspnea, unspecified (principal); Z87.891 Personal history of nicotine dependence
CPT/HCPCS: 94060; 94726; 94729

== ENCOUNTER 2020-07-16 13:55 | Outpatient (CLI) | payer OTHER, SELFPAY ==
--- NOTE | ~2020-07-16 | XR_ITS ---
EXAMINATION: XR chest 2V 07/16/2020 14:20 INDICATION: Shortness of breath PROCEDURE: 2 view chest COMPARISON: FINDINGS: The lungs are clear. The cardiomediastinal silhouette is within normal limits. There are no pleural effusions. There is no pneumothorax suspected. IMPRESSION: 1: NO ACUTE CARDIOPULMONARY DISEASE. Reviewed, dictated and finalized at location A. CHBOARD TROUBLESHOOTER
--- NOTE | ~2020-07-16 | NM_ITS ---
EXAMINATION: NM lung vent and perfusion DATE: 07/16/2020 15:08 INDICATION: Shortness of breath. TECHNIQUE: 5.3 mCi Tc-99m MAA was administered intravenously for perfusion images. Scintigraphic ashley ges of the chest were obtained. COMPARISON: Chest 2 views 07/12/2020, chest CT 07/29/2017 FINDINGS: Perfusion images show small defects bilaterally. ] IMPRESSION: 1. Pulmonary embolism absent (very low probability). Reviewed, dictated and finalized at location A. MANAGER
[2020-07-16 16:00] LABS: Alveolar/Arterial O2 Gradient 23.1 mmHg; Base Excess ABG 2.3 mEq/l (+/-2.0); Fractional Inspired Oxygen 21 %; HCO3 ABG 28.1 mEq/l (22.0-26.0); Oxygen Content ABG 19.3 %vol (16.0-22.0); Oxygen Saturation ABG 93.5 % (95.0-100.0); Oxyhemoglobin 93.2 % THb (90.0-100.0); PO2 ABG 69.2 mmHg (80.0-100.0); Total Hemoglobin 14.7 g/dL (12.0-18.0); pH ABG 7.385 (7.350-7.450)
[2020-07-16 16:01] LABS: Modified Allen's Test Pass
[2020-07-16 16:02] LABS: Device ROOM AIR
--- NOTE | 2020-07-19 12:23 | WPDSIXMINUTE ---
Six Minute Walk Six Minute Walk: The patients O2 sats started at 92% and dropped as low as 87% Total walk distance 152.4 meters conclusion: This patient qualifies for home oxygen therapy. I would recommend 2 liters oxygen per nasal cannula during exertion and sleep.
== END 2020-07-16 13:56 | disposition home or self-care (01) ==
PROVIDERS: Visit Provider Internal Medicine Critical Care Medicine
DX: R94.2 Abnormal results of pulmonary function studies (principal); R06.02 Shortness of breath; R09.02 Hypoxemia; I26.99 Other pulmonary embolism without acute cor pulmonale
CPT/HCPCS: 36600; 71046; 78582; 82805; 94618; A9540; A9558

== ENCOUNTER 2020-07-24 10:28 | Emergency (ER) | payer OTHER, SELFPAY ==
[2020-07-24] VITALS (12 sets, daily range): BP systolic 116–188; BP diastolic 50–120; PULSE 75–100; RESP 14–22; TEMP 36.3–36.6; O2SAT 94–98
--- NOTE | ~2020-07-24 | CT_ITS ---
EXAMINATION: CT brain wo con DATE: 07/24/2020 11:25 INDICATION: Head injury. TECHNIQUE: Computed tomography (CT) of the head was performed without intravenous contrast. The mA wa s adjusted according to patient size. Iterative reconstruction technique was employed. The dose-lengt h product was 605.33 mGy-cm. COMPARISON: None FINDINGS: There is no intracranial hemorrhage, acute infarction, or abnormal intracranial mass lesion . The ventricles are normal in size. There is mild mucosal thickening in the ethmoid sinuses. There a re changes of posterior craniotomy. The mastoid air cells are normal. The orbits are normal. IMPRESSION: 1. Normal brain. Reviewed, dictated and finalized at location A. ECT GEOPHYSICIST IMPRESSION: 1. Normal brain.
--- NOTE | ~2020-07-24 | XR_ITS ---
EXAMINATION: XR wrist LT min 3V DATE: 07/24/2020 11:34 INDICATION: Left wrist injury and pain. TECHNIQUE: 3 views of left wrist were obtained. COMPARISON: None. FINDINGS: There is a comminuted fracture of distal radius. It is not clear if the distal articular armas rface is involved. The main distal fracture fragment demonstrates impaction, 3 mm dorsal displacement , and dorsal angulation. There is 31 degrees dorsal tilt of the distal articular surface. There is an avulsion fracture of the ulnar styloid. There is mild osteoarthritis of triscaphe joint and first ca rpometacarpal joint. IMPRESSION: 1. Comminuted fracture of distal radius. 2. Avulsion fracture of the ulnar styloid. Reviewed, dictated and finalized at location A. RBARIC TECH
--- NOTE | ~2020-07-24 | XR_ITS ---
EXAMINATION: XR wrist LT 2V EXAM DATE: 07/24/2020 13:48 INDICATION: Postreduction. TECHNIQUE: Frontal and lateral projections of the left wrist. Comparison is made to prior examinatio n from earlier same date. FINDINGS: There is been reduction in the previously seen posterior substantial angulation and displa cement to the left radial distal metaphyseal comminuted fracture and the ulnar styloid base avulsion fracture. There is still about 5 mm posterior displacement to the main radial fragments. A cast has b een applied. Carpal bones are unremarkable. IMPRESSION: Status post reduction, casting left distal radial, ulnar styloid intra-articular fractur es. Reviewed, dictated and finalized at location A. IS CHEF IMPRESSION: Status post reduction, casting left distal radial, ulnar styloid i ntra-articular fractures.
--- NOTE | 2020-07-24 11:16 | ED.FALL ---
HPI - Fall General Chief Complaint: Fall <Nicky Nick PA-C - Last Filed: 07/24/20 14:31> Stated Complaint: Fall <GURVINDER Lennon Last Filed: 07/24/20 14:31> Time Seen by Provider: 07/24/20 10:49 <GURVINDER Lennon Last Filed: 07/24/20 14:31> Source: patient <GURVINDER Lennon Last Filed: 07/24/20 14:31> Mode of arrival: wheelchair <GURVINDER Lennon Last Filed: 07/24/20 14:31> Limitations: no limitations <GURVINDER Lennon Last Filed: 07/24/20 14:31> History of Present Illness HPI Narrative: This is a 65-year-old female that presents to the emergency department after a fall today with left wrist pain. Reports she was going to her pulmonology appointment and tripped over the sidewalk and fell forward. Does report hitting her head. Denies loss of consciousness. Reports a laceration over the left eyebrow. Also reports left wrist pain. Denies prodromal symptoms, other injuries, vision changes, vomiting, numbness, or weakness. <Nicky Nick PA-C - Last Filed: 07/24/20 14:31> Related Data Home Medications: Home Medications Medication Instructions Recorded Confirmed aripiprazole 2 mg tablet 2 mg PO QPM 01/30/20 04/11/20 duloxetine 20 mg capsule,delayed 20 mg PO BID 01/30/20 04/11/20 release lamotrigine 25 mg tablet 75 mg PO DAILY 01/30/20 04/11/20 lorazepam 0.5 mg tablet 0.5 mg PO QID 01/30/20 04/11/20 pantoprazole 20 mg tablet,delayed 20 mg PO QAM 01/30/20 04/11/20 release sertraline 25 mg tablet 50 mg PO HS 01/30/20 04/11/20 trazodone 50 mg tablet 100 mg PO HS tablet 02/15/20 04/11/20 carvedilol 3.125 mg tablet 3.125 mg PO Q12H 03/12/20 04/11/20 cholecalciferol (vitamin D3) 1,250 1,250 mcg PO MONTHLY 04/11/20 04/11/20 mcg (50,000 unit) capsule vitamin B comp and C no.3 15 mg-10 1 cap PO DAILY 04/11/20 04/11/20 mg-50 mg-5 mg-300 mg capsule duloxetine 60 mg capsule,delayed 60 mg PO DAILY 05/03/20 release <Nicky Nick PA-C - Last Filed: 07/24/20 14:31> Allergies/Adverse Reactions: Allergies Allergy/AdvReac Type Severity Reaction Status Date / Time ACYCLOVIR SODIUM Allergy Severe HIVES Uncoded 02/02/20 11:38 OMEPRAZOLE MAGNESIUM AdvReac Intermediate CAUSES Uncoded 02/02/20 11:38 HYPERVENTILATION SYMPTOMS <Nicky Nick PA-C - Last Filed: 07/24/20 14:31> Review of Systems Review of Systems: Narrative: CONSTITUTIONAL: Denies fever EYES: Denies visual changes GASTROINTESTINAL: Denies vomiting MUSCULOSKELETAL: Reports joint pain. Denies back pain NEUROLOGIC: Denies headache, numbness, or weakness. <Nicky Nick PA-C - Last Filed: 07/24/20 14:31> All systems reviewed & are unremarkable except as noted in HPI and below <Nicky Nick PA-C - Last Filed: 07/24/20 14:31> [facility] Past Medical History Medical History: Medical History (Updated 07/24/20 @ 14:28 by Nicky Nick PA-C) Anxiety Bipolar 1 disorder Body mass index (BMI) of 40.1-44.9 in adult Brain tumor Decreased diffusion capacity Depression Exercise hypoxemia GERD (gastroesophageal reflux disease) History of tobacco abuse HTN (hypertension) Morbid obesity with BMI of 45.0-49.9, adult Nocturnal oxygen desaturation SIMEON (obstructive sleep apnea) With CPAP use Shortness of Breath <Nicky Nick PA-C - Last Filed: 07/24/20 14:31> Surgical History Surgical History: Surgical History (Updated 04/11/20 @ 08:18 by Bryson Jernigan MD) Fracture of right distal radius Surgical repair on February 02, 2020 H/O gastric bypass H/O spinal fusion L4 through S1 2010 History of bladder suspension procedure March 2017 History of brain surgery 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
[2020-07-24] MEDS: TETANUS,DIPHTHERIA,AC PERTUSSIS ADULT (0.5 ML) BOOSTRIX IM (11:45)
[2020-07-24] MEDS: ONDANSETRON INJ 4 MG/2 ML VIAL IV PUSH (11:50)
[2020-07-24] MEDS: MORPHINE SULFATE (*CRX) 4 MG/ML INJ IV PUSH (11:50)
--- NOTE | 2020-07-24 12:35 | PC.NURSE ---
Patient will need closed reduction of left wrist. moved to ED room 8 for procedure. 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 patient on 3L NC O2 same as at home. resting better after morphine. here. patient wants him to sign consent. sedation protocols followed.
[2020-07-24] MEDS: SODIUM CHLORIDE 0.9% IV 1,000 ML 999 ML (13:10)
--- NOTE | 2020-07-24 13:10 | PC.NURSE ---
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 at bedside. Dr. Colvin and Nicky NEWTON at bedside for closed reduction of left wrist. time out procedure done. ED techs at bedside with finger trap and OCL equipment. all explained to patient and . crash cart at door. suction set up. Ambu bag set up. patient remains on 3L NC same as at home. alert. oriented. patient and both deny questions or needs prior to start of procedure.
[2020-07-24] MEDS: PROPOFOL IV EMULSION 200 MG/20 ML VIAL 100 MG IV PUSH (13:15)
--- NOTE | 2020-07-24 13:15 | PC.NURSE ---
on school lunch monitor. 2 peripheral IV access. Diprivan 50mg IV given by Dr. Colvin.
--- NOTE | 2020-07-24 13:16 | PC.NURSE ---
2nd dose of Diprivan 50mg IV given by MD. procedure started. see moderate sedation charting. patient left wrist closed reduction done by PA. placed in finger trap for OCL placement. (+)PMS. radiology notified for bedside xray for placement. tolerated well. drowsy but arousable. on clinical research monitor.
--- NOTE | 2020-07-24 13:30 | PC.NURSE ---
resting comfortably. arouses to verbal stimuli. states she is comfortable. OCL placed. placing sling now. updated at bedside. will continue to monitor.
--- NOTE | 2020-07-24 13:45 | PC.NURSE ---
tolerated well. xray in room. alert to verbal stimuli. present. patient advised to remain NPO for a few more minutes.
--- NOTE | 2020-07-24 14:15 | PC.NURSE ---
resting on stretcher. denies needs. denies pain. arouses to name. in room. patient and updated on expected wait time for drinking and discharge.
--- NOTE | 2020-07-24 14:30 | PC.NURSE ---
alert. resting on stretcher.
--- NOTE | 2020-07-24 15:00 | PC.NURSE ---
patient taken to restroom via wheelchair due to sedation and on O2. tolerated well. updated on wait time. ice water given.
--- NOTE | 2020-07-24 15:45 | PC.NURSE ---
awake. ready to go home. here. sling removed from left arm. patient assisted to get in wheelchair. on home O2 now. denies needs prior to discharge. patient assisted out to private vehicle.
== END 2020-07-24 15:58 | disposition home or self-care (01) ==
PROVIDERS: Emergency Provider Emergency Medicine; PCP Internal Medicine Critical Care Medicine
DX: S09.90XA Unspecified injury of head, initial encounter (principal); S52.502A Unspecified fracture of the lower end of left radius, initial encounter for closed fracture; F17.210 Nicotine dependence, cigarettes, uncomplicated; F41.9 Anxiety disorder, unspecified; F31.9 Bipolar disorder, unspecified; K21.9 Gastro-esophageal reflux disease without esophagitis; I10 Essential (primary) hypertension; G47.30 Sleep apnea, unspecified; W01.0XXA Fall on same level from slipping, tripping and stumbling without subsequent striking against object, initial encounter
CPT/HCPCS: 25605; 70450; 73100; 73110; 90471; 90715; 96374; 96375; 99285; J2270; J2405; J2704; J7030

== ENCOUNTER 2020-10-16 07:28 | Outpatient (CLI) | payer OTHER, SELFPAY ==
--- NOTE | ~2020-10-16 | US_ITS ---
US abdomen complete DATE: 10/16/2020 08:01 INDICATION: Abdominal pain TECHNIQUE: Real-time imaging and Doppler analysis COMPARISON: None FINDINGS: The gallbladder is surgically absent. The pancreas is obscured by bowel gas. There is hepatic steatosis. No hepatic space-occupying mass lesion is evident. Normal hepatopedal por hong venous flow direction. The common bile duct measures 4.6 mm, normal. No renal mass lesion or hydronephrosis. Normal splenic size. Normal caliber of the abdominal aorta. Inferior vena cava is unremarkable. IMPRESSION: Status post cholecystectomy Hepatic steatosis The pancreas is obscured Reviewed, dictated and finalized at Location A. Reviewed, dictated and finalized at location A. ANALYST
== END 2020-10-16 07:29 | disposition home or self-care (01) ==
PROVIDERS: PCP Internal Medicine; Visit Provider Nurse Practitioner
DX: R10.9 Unspecified abdominal pain (principal); K76.0 Fatty (change of) liver, not elsewhere classified; Z90.49 Acquired absence of other specified parts of digestive tract
CPT/HCPCS: 76700

== ENCOUNTER 2020-10-28 12:59 | Outpatient (CLI) | payer OTHER, SELFPAY | END 2020-10-28 13:00 | disposition home or self-care (01) | LOC: ANHCOVIDVC 13:00 | PROVIDERS: PCP Internal Medicine | DX: Z23 Encounter for immunization (principal) | CPT/HCPCS: 0001A; 91300 ==

== ENCOUNTER 2020-11-11 13:31 | Outpatient (CLI) | payer OTHER, SELFPAY ==
--- NOTE | ~2020-11-11 | CT_ITS ---
EXAMINATION: CT lung screening EXAM DATE: 11/11/2020 13:44 INDICATION: Z87.891 - Personal history of nicotine dependence. TECHNIQUE: Spiral low dose CT of the chest without contrast. Axial, coronal and sagittal images were reviewed. The dose-length product (DLP) for this examination was 295.94 mGy-cm. The exposure was t ailored according to patient size (auto mA exposure control), and iterative reconstruction (ASIR) was used as additional dose reduction technique. Comparison is made to prior examination from 07/29/2017. FINDINGS: There is a 3 mm nodule along each major fissure, images 57 and 59. There are several regio ns of bilateral linear scarring. There is mild emphysema. Previously seen pneumonia has resolved. Tr acheobronchial tree is patent. There is no mediastinal, hilar or axillary lymphadenopathy. There are no pleural or pericardial effusions. There is no pneumothorax. Heart normal in size. No kimber dence of coronary arterial calcification. Surgical changes from gastric bypass. 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 Heterogeneous mildly enlarged right thyroid lobe. Incidental note made of what is probably an ingested tablet in the mid esophagus. There is thoracic spondylosis without osteoblastic or osteolytic lesions identified. IMPRESSION: Lung-RADS category 2, benign appearance or behavior (<1% chance of malignancy); recommend continued LDCT screening in 1 year. Reviewed, dictated and finalized at location A.
== END 2020-11-11 13:32 | disposition home or self-care (01) ==
PROVIDERS: PCP Internal Medicine; Visit Provider Nurse Practitioner Family
DX: Z12.2 Encounter for screening for malignant neoplasm of respiratory organs (principal); Z87.891 Personal history of nicotine dependence
CPT/HCPCS: 71271

== ENCOUNTER 2020-11-18 13:01 | Outpatient (CLI) | payer OTHER, SELFPAY | END 2020-11-18 13:02 | disposition home or self-care (01) | LOC: ANHCOVIDVC 13:02 | PROVIDERS: PCP Internal Medicine | DX: Z23 Encounter for immunization (principal) | CPT/HCPCS: 0002A; 91300 ==

== ENCOUNTER 2021-03-19 12:41 | Outpatient (CLI) | payer OTHER, SELFPAY ==
[2021-03-19 14:00] VITALS: O2SAT 92
[2021-03-19 14:05] VITALS: O2SAT 90
--- NOTE | 2021-03-19 15:50 | P.PCNPFT_ITS ---
PFT Procedure Performed PFT Procedure Performed Spirometry with Pre/Post Bronchodilator Plethysmography (Lung Vol) Diffusing Cap (DLCO) Flow Vol Loop PFT Interpretation This is a pulmonary function test with pre and post-bronchodilator spirometry, plethysmography and diffusing capacity. The test was performed and results interpreted in accordance with the 2019 and 2005 ATS/ERS Task Force guidelines respectively using the Global Lung Function Initiative-2012 reference equations. Patient demonstrated good effort and cooperation. Reproducibility criteria were met. The quality of the pre bronchodilator spirometry maneuver was Grade B and post bronchodilator spirometry maneuver was Grade B. Findings: Spirometry: The contour of the inspiratory and expiratory flow tracing are normal. The pre bronchodilator FVC is 1.97 L, 64% predicted. The pre bronchodilator FEV1 is 1.56 L, 65% predicted. The FEV1: FVC ratio is 79%. The post bronchodilator FVC is 2.00 L, representing a 2% increase. The post bronchodilator FEV1 is 1.64 L, representing a 5% increase. Plethysmography: The total lung capacity is 3.23 L, 63% predicted. The functional residual capacity is 1.29 L, 45% predicted. The residual volume is 1.22 L, 59% predicted. Diffusion capacity: The absolute diffusion capacity is 13.4, 63% predicted. The diffusing capacity corrected for alveolar volume is 5.02, 115% predicted. In comparison to previous pulmonary function test on 03/15/2020 the post bronchodilator FVC has remained unchanged from 2.25 L to 2.00 L. The post bronchodilator FEV1 has decreased from 1.98 L to 1.64 L. The total lung capacity has decreased from 3.96 L to 3.23 L. The functional residual capacity has decreased from 1.88 L to 1.29 L. The residual volume has decreased from 1.61 L to 1.22 L. The absolute diffusion capacity is unchanged from 15.2 to 13.4. The diffusing capacity corrected for alveolar volume is unchanged from 4.56 to 5.02 Impression: There is a moderate restrictive ventilatory abnormality. The spirometry is normal without evidence of an obstructive abnormality. There is no significant improvement after inhaling a single dose of albuterol. The absolute diffusing capacity is mildly decreased and normalizes when corrected for alveolar volume. When compared to previous pulmonary function test on 03/15/2020 there has been a greater than anticipated decrease in the FEV1, total lung capacity, functional residual capacity, and residual volume with no change in the FVC, absolute diff usion capacity and diffusing capacity corrected for alveolar volume. Clinical correlation is recommended.
== END 2021-03-19 12:42 | disposition home or self-care (01) ==
PROVIDERS: PCP Internal Medicine; Visit Provider Internal Medicine Critical Care Medicine
DX: R06.02 Shortness of breath (principal); R09.02 Hypoxemia; Z87.891 Personal history of nicotine dependence
CPT/HCPCS: 94060; 94618; 94726; 94729

== ENCOUNTER 2021-04-10 16:17 | Outpatient (CLI) | payer OTHER, MEDICARE, SELFPAY ==
--- NOTE | ~2021-04-10 | MR_ITS ---
EXAMINATION: MR brain/brain stem wo/w con DATE: 04/10/2021 17:36 INDICATION: Dizziness and giddiness. TECHNIQUE: Magnetic resonance imaging (MRI) of the brain and brainstem was performed without and with 20 mL MultiHance intravenous contrast. Sequences included sagittal and axial T1-weighted FSE, axial diffusion-weighted FS EPI, axial T2*-weighted GRE, axial T2-weighted FLAIR Propeller, and axial T2-we ighted Propeller. Postcontrast sequences included axial, sagittal, and coronal T1-weighted FSE. Appar ent diffusion coefficient (ADC) maps were created. COMPARISON: Head CT 07/24/2020 FINDINGS: There are scattered areas of nonspecific increased T2-weighted signal intensity in the cere bral white matter, which is within normal limits for the patient's age. There is no intracranial hemo rrhage, acute infarction, or abnormal intracranial mass lesion. The ventricles are normal in size. Th e mastoid air cells are normal. The paranasal sinuses are clear. The orbits are normal. There are chai nges of right posterior craniotomy. IMPRESSION: 1. Normal aging brain. Reviewed, dictated and finalized at location D. IMPRESSION: 1. Normal aging brain.
[2021-04-10 17:08] LABS: Estimated Glomerular Filt Rate 45
== END 2021-04-10 16:18 | disposition home or self-care (01) ==
PROVIDERS: PCP Internal Medicine; Visit Provider Nurse Practitioner
DX: R42 Dizziness and giddiness (principal)
CPT/HCPCS: 70553; A9577

== ENCOUNTER 2021-04-17 16:33 | Outpatient (CLI) | payer OTHER, MEDICARE, SELFPAY ==
--- NOTE | ~2021-04-17 | US_ITS ---
US renal BI DATE: 04/17/2021 17:08 INDICATION: Abnormal renal function TECHNIQUE: Real-time imaging of kidneys and urinary bladder COMPARISON: October 16, 2020 complete abdominal ultrasound examination FINDINGS: The right kidney measures approximately 9.6 cm, the left 10.9 cm. No renal mass lesion or h ydronephrosis is detected. The urinary bladder is unremarkable. IMPRESSION: No significant abnormality Reviewed, dictated and finalized at Location A. Reviewed, dictated and finalized at location A. IMPRESSION: No significant abnormality
== END 2021-04-17 16:34 | disposition home or self-care (01) ==
LOC: ANHIMG 16:35
PROVIDERS: PCP Internal Medicine; Visit Provider Internal Medicine Nephrology
DX: R94.4 Abnormal results of kidney function studies (principal); I10 Essential (primary) hypertension
CPT/HCPCS: 76775

== ENCOUNTER 2021-05-15 13:32 | Outpatient (CLI) | payer OTHER, MEDICARE, SELFPAY ==
--- NOTE | ~2021-05-15 | MM_ITS ---
EXAMINATION: MM screening andrez BI w jomar HISTORY: Screening mammogram TECHNIQUE: Craniocaudal and mediolateral oblique 3-D tomosynthesis images were obtained and synthetic 2-D images were generated. CAD analysis was submitted and interpreted. COMPARISON: 02/10/2016, 12/18/2014 bilateral digital screening mammogram examinations BREAST PARENCHYMAL COMPOSITION: There are scattered areas of fibroglandular density. FINDINGS: There is no evidence of suspicious mass, calcification, or architectural distortion to sugg est malignancy in either breast. There has been no suspicious interval change. IMPRESSION: 1. No mammographic evidence of malignancy. 2. Recommend routine screening mammography in one year. BI-RADS Category 1: Negative Reviewed, dictated and finalized at location A.
--- NOTE | ~2021-05-15 | DEXA_ITS ---
Bone Density Report Name: Leydi Su Age: 66 Sex: Female Ethnicity: White Date of : 1955 Indication: postmenopausal; prior fracture; Referring Provider: SHEILA GILBERT Study: Bone densitometry was performed. Exam Date: May 15, 2021 Accession number: [id number] Bone Density: Region BMD T-score Z-score Classification AP Spine (L1, L2, L3) 1.317 2.7 4.4 Normal Femoral Neck (Left) 0.815 -0.3 1.2 Normal Total Hip (Left) 0.893 -0.4 0.8 Normal Total Hip Bilateral Avg 0.908 -0.3 1.0 Normal Femoral Neck (Right) 0.873 0.2 1.7 Normal Total Hip (Right) 0.921 -0.2 1.1 Normal World Health Organization criteria for BMD impression classify patients as: Normal (T-score at or above -1.0), Osteopenia (T-score between -1.0 and -2.5), or Osteoporosis (T-score at or below -2.5). 10-year Fracture Risk: FRAX not reported because: All T-scores for Spine Total, Hip Total, Femoral Neck at or above -1.0 Clinical Information Provided by Patient: Has had a low trauma fracture Has used the following medications: Vitamin D, Calcium Patient maximum height was 64 Menopause Age: 51 No regular weight bearing exercise Onset of menses at age 13 Number of children 3 Impression: The patient has normal bone mass. The patient has risk factors, including: previous fracture. Discussion: BONE DENSITY IS ABOVE THE MINIMUM DESIRABLE LEVEL AT ALL SKELETAL SITES TESTED. This patient?s bone mineral density is above the minimum desirable level (T-score -1.0 or better) at all sites measured. The patient should follow a healthful lifestyle (good nutrition with adequate calcium and vitamin D, and appropriate weight-bearing exercise). Follow-Up: Consider repeating this study in 5 years or sooner if there is some new clinical indication. Reported by: DERRICK on 05/15/2021 2:03:00 PM. Reviewed, dictated and finalized at location Janet CHASE
== END 2021-05-15 13:33 | disposition home or self-care (01) ==
PROVIDERS: PCP Internal Medicine; Visit Provider Obstetrics & Gynecology
DX: Z12.31 Encounter for screening mammogram for malignant neoplasm of breast (principal); Z13.820 Encounter for screening for osteoporosis; Z78.0 Asymptomatic menopausal state
CPT/HCPCS: 77063; 77067; 77080

== ENCOUNTER 2021-07-11 14:00 | Outpatient (RCR) | payer OTHER, MEDICARE, SELFPAY ==
--- NOTE | 2021-06-02 14:37 | PTOPEVAL ---
PHYSICAL THERAPY EVALUATION AND PLAN OF CARE 06-02-21 Thank you for referring Leydi Su to [facility].? She is scheduled to be seen for therapy? 2 x/week for 4 weeks, for the diagnosis of dizziness. Her treatment plan includes balance and dynamic gait retraining. Please review, sign, date and return this plan of care LAKSHMI. I agree with and certify that the following plan of care is medically necessary. Referring Physician Date Attending Provider: Nicky Gu NP *PT Outpatient Evaluation Start: 06/02/21 13:28 Document 06/02/21 13:28 LOLITA (Rec: 06/02/21 14:36 LOLITA [id number]) Past Medical History Source of Past Medical History Recalled from Previous Visit, Confirmed with Patient/Family Neurological History Hx Other Neurological Disorders Yes: BRAIN TUMOR REMOVED Cardiovascular History Hx Hypertension Yes: meds Respiratory History Hx Sleep Apnea Yes: CPAP Hx Other Respiratory Disorders Yes: recent function test: moderate restrictive ventilatory abnormality 88-94% O2 Gastrointestinal History Hx Gastric Bypass Surgery Yes Hx Gastroesophageal Reflux Disease Yes: meds Genitourinary History Hx Other Genitourinary Disorders Yes: INCONTINENCE- fecal& urinary;recent kidney workup- stable Musculoskeletal History Hx Fractures Yes: R and L DISTAL RADIUS FX; R with ORIF; Hx Joint Replacement Yes: L TKA Hx Spinal Surgery Yes: SPINAL FUSION L4-L5, S1 Hematological History Hx Hematological Disorders No Significant History Endocrine History Hx Endocrine Disorders No Significant History HEENT History Hx Tonsillectomy Yes Hx Other HEENT Disorders Yes: DEAF L EAR- since childhood; wear glasses Integumentary History Hx Skin Disorders No Significant History Reproductive History Hx Pelvic Inflammatory Disease Yes: FROM IUD Hx Post Menopausal Yes Psychosocial History Hx Anxiety Yes: meds Hx Bipolar Disorder Yes: meds Hx Depression Yes: meds Pain History Has Past Pain Affected Your Daily Life Yes: GENERALIZED Anesthesia History Hx Anesthesia Reactions No Significant History Evaluation Information Problem Diagnosis dizziness Onset January 2021 Diagnostic Tests MRI For This Problem Yes: brain MRI reports craniotomy changes Prior Level of Function Activity Level (Last 3 Months) Activity of Daily Living Ability Needs Some Help Indoor/Home Mobility Independent Community Mobility Needs Some Help Sta
--- NOTE | 2021-06-30 13:20 | PCPTNOTE ---
pt did not show for today's reevaluation; I called her, she stated she was not feeling well because she fell. rescheduled reeval for next week.
--- NOTE | 2021-07-11 14:46 | PTOPEVAL ---
PHYSICAL THERAPY DISCHARGE 07-11-21 Refer to the clinical summary below, for her status today, compared to the initial evaluation. The goals were partially achieved. Discharge PT services at this time. Thank you for referring Leydi Su to [facility].? Please review, sign, date and return this plan of care LAKSHMI. I agree with and certify that the following plan of care is medically necessary. Referring Physician Date Attending Provider: Nicky Gu NP Document 07/11/21 13:55 LOLITA (Rec: 07/11/21 14:46 LOLITA [id number]) Assessment Status Discharge Subjective Information Leydi reports: walking is Query Text:As Reported By Patient/ improved; was walking in the Family house, feet slipped out from under me and fell sideways into furniture; legs are stiff and sore when walk; sometimes do the leg exercises , but they are hard and legs hurt; agree to discharge from PT; Pain Assessment Timing of Pain Assessment Timing of Pain Assessment Assessment Pain Scale Pain Scale Used Numeric (1 - 10) Self Report Pain Assessment Bilateral Leg(s) Reported Pain Level 4 Pain Frequency Chronic Other Pain Description R and L quads and calves Pain Score Pain Score 4: Self Report Additional Pain Score Comments have not had any headaches for the past few weeks Interventions Used Interventions Used By Clinicians Education Lower Extremity Muscle Strength Testing General Lower Extremity Strength Gross Lower Extremity Strength stand exercise with B UE hold: - hip abduction and hip extension R and L x 15 reps; sitting exercises: ankle pumps , knee extension x 10 reps R and L HEP review: instructed to continue HEP and increase reps as able and increase walking tolerance Bed Mobility Assessment Bed Mobility Bed Type Mat Supine to Sit Ability Independent Sit to Supine Ability Independent Cues Needed for Bed Mobility None Bed Mobility Comments labored with transfer and increase SOB; supine to sit reported dizzy and cleared ~ 15 seconds; Balance Assessment Tinetti Balance Assessment Sitting Balance Steady, safe Ability to Arise
== END 2021-07-14 16:13 | disposition home or self-care (01) ==
LOC: ANHPT 14:00
PROVIDERS: PCP Internal Medicine; Visit Provider Nurse Practitioner
DX: R42 Dizziness and giddiness (principal)
CPT/HCPCS: 97110; 97162

== ENCOUNTER 2021-09-11 06:51 | Outpatient (RCR) | payer OTHER, MEDICARE, SELFPAY | END 2021-12-01 12:07 | disposition home or self-care (01) | LOC: ANHDMC 06:51 | PROVIDERS: PCP Internal Medicine; Visit Provider Physician Assistant | DX: E66.01 Morbid (severe) obesity due to excess calories (principal); Z68.43 Body mass index [BMI] 50.0-59.9, adult | CPT/HCPCS: 99199 ==

== ENCOUNTER 2021-09-19 09:48 | Inpatient (IN) | payer OTHER, MEDICARE, SELFPAY ==
[2021-09-19] VITALS (50 sets, daily range): BP systolic 126–161; BP diastolic 52–83; PULSE 79–98; RESP 11–36; TEMP 36.4–36.9; O2SAT 80–99; BMI 51.5
--- NOTE | ~2021-09-19 | XR_ITS ---
EXAMINATION: XR chest 1V portable DATE: 09/19/2021 11:32 INDICATION: Hypoxia. TECHNIQUE: A single frontal view of the chest was obtained. COMPARISON: Chest 2 views 07/16/2020 FINDINGS: Again seen is eventration of anterior right hemidiaphragm. There are mild airspace opacitie s in the mid and lower lung zones. No pleural effusion or pneumothorax. The heart size is normal. IMPRESSION: 1. Mild airspace opacities in the mid and lower lung zones, consistent with atelectasis versus pneumo emily. Reviewed, dictated and finalized at location A. T HIGH SCHOOL INSTRUCTOR IMPRESSION: 1. Mild airspace opacities in the mid and lower lung zones, consistent with ate lectasis versus pneumonia.
--- NOTE | ~2021-09-19 | CT_ITS ---
EXAMINATION: CTA chest PE protocol DATE: 09/19/2021 15:40 INDICATION: Shortness of breath. Hypoxia. Elevated d-dimer. TECHNIQUE: Computed tomography angiography (CTA) of the chest was performed with 100 mL Omnipaque-350 intravenous contrast timed to evaluate the pulmonary arteries. Coronal maximum intensity projection 3D-reconstructions were created by the technologist. Automated exposure control and iterative reconst ruction technique were employed. Exam dose: 966.48 mGy-cm total exam DLP. COMPARISON: 09/19/2021 portable AP chest 11/11/2020 CT lung screening 07/29/2017 CT pulmonary scan FINDINGS: There is diagnostic contrast enhancement of the pulmonary arteries and no evidence of pulmo nary embolism. No thoracic aortic aneurysm or dissection. Heart size is within normal limits. No pericardial or pleu ral effusion. No hilar or mediastinal mass lesion or lymphadenopathy. There is enlargement heterogeneous enhancement of the right lobe of the thyroid gland suggesting goit er. There is patchy groundglass density scattered throughout both lungs which may represent small airways disease or bilateral patchy pneumonitis. Status post gastric bypass surgery. Stable small left adrenal adenoma. Prominent degenerative disease in the lower cervical spine. No suspicious osteolytic or osteoblastic lesions are noted. IMPRESSION: No evidence of pulmonary embolism. Patchy groundglass densities scattered throughout both lungs suggesting small airways disease or patc hy pneumonitis Reviewed, dictated and finalized at location A. TUBE MACHINE TENDER IMPRESSION: No evidence of pulmonary embolism. Patchy groundglass densities scattered throughout both lungs suggesting small a irways disease or patchy pneumonitis
--- NOTE | 2021-09-19 10:20 | ECG_ITS ---
Measurements Intervals [place] Rate: 86 P: 16 NC: 140 QRS: -22 QRSD: 99 T: 14 QT: 386 QTc: 462 Interpretive Statements SINUS RHYTHM MINIMAL Q WAVES- INFERIOR LEADS BASELINE ARTIFACT- I, II, III, AVR, AVL, AVF, V1-V6 BORDERLINE ECG Electronically Signed On 09-19-2021 10:58:30 [employer]SACTIONAL [place] by Maurice Hall D.O.
[2021-09-19 10:38] LABS: Basophils Absolute Auto 0.1 K/mm3 (0.0-0.1); Basophils Percent Auto 0.7 % (0.2-1.2); Eosinophils Absolute Auto 0.2 K/mm3 (0-0.3); Eosinophils Percent Auto 2.4 % (0-4.4); Hematocrit 44.4 % (37.0-47.0); Hemoglobin 14.4 g/dL (12.0-15.0); Immature Granulocyte Absolute 0.12 K/mm3 (0.00-0.031); Immature Granulocyte Percent A 1.4 % (0-0.5); Lymphocytes Absolute Auto 1.32 K/mm3 (0.9-3.2); Lymphocytes Percent Auto 15.8 % (18.3-44.2); Mean Corpuscular HGB Conc 32.4 g/dl (32-36); Mean Corpuscular Hemoglobin 31.6 pg (26-34); Mean Corpuscular Volume 97.4 fl (80-100); Mean Platelet Volume 8.9 fl (7.4-10.4); Monocytes Absolute Auto 0.8 K/mm3 (0.1-0.6); Monocytes Percent Auto 9.6 % (2.6-8.5); Neutrophils Absolute Auto 5.9 K/mm3 (1.3-6.7); Neutrophils Percent Auto 70.1 % (45.5-73.1); Platelet Count Result 218 k/mm3 (150-375); Red Blood Count 4.56 M/mm3 (4.2-5.4); White Blood Count 8.4 K/mm3 (4.5-10.0)
--- NOTE | 2021-09-19 10:40 | ED.URI ---
HPI - URI/Sore Throat General Chief Complaint: Upper Respiratory Infection Stated Complaint: covid sx Time Seen by Provider: 09/19/21 10:15 Source: patient Mode of arrival: ambulatory Limitations: no limitations History of Present Illness HPI Narrative: This is a 66 year old female that presents to the ER for cold symptoms present over the last couple of days. Reports cough, congestion, chills, fatigue. She is COVID and Influenza vaccinated. She chronically wears oxygen at night. Today she checked her pulse oximeter and it was reading in the 70s which prompted her to be seen. Does report lower extremity edema that is at her baseline. Denies fever, or chest pain. Related Data Home Medications Medication Instructions Recorded Confirmed aripiprazole 2 mg tablet 30 mg PO QPM 01/30/20 07/23/21 lamotrigine 25 mg tablet 200 mg PO BID 01/30/20 07/23/21 sertraline 25 mg tablet 100 mg PO BID 01/30/20 07/23/21 trazodone 50 mg tablet 100 mg PO HS tablet 02/15/20 07/23/21 cholecalciferol (vitamin D3) 1,250 1,250 mcg PO DAILY 04/11/20 07/23/21 mcg (50,000 unit) capsule vitamin B comp and C no.3 15 mg-10 1 cap PO DAILY 04/11/20 07/23/21 mg-50 mg-5 mg-300 mg capsule carvedilol 3.125 mg tablet 12.5 mg PO Q12H tablet 01/21/21 07/23/21 duloxetine 60 mg capsule,delayed 60 mg PO BID cap 01/21/21 07/23/21 release lorazepam 1 mg tablet 2 mg PO TID PRN tablet 01/21/21 07/23/21 ferrous fumarate 89 mg (29 mg 89 mg PO HS 07/23/21 07/23/21 iron) tablet amoxicillin 500 mg PO QID 09/19/21 hydrocodone-acetaminophen 1 - 2 tablet PRN 09/19/21 oxybutynin chloride 10 mg PO DAILY 09/19/21 Allergies Allergy/AdvReac Type Severity Reaction Status Date / Time acyclovir [From Zovirax] Allergy Severe Hives Verified 09/19/21 12:18 omeprazole [From Prilosec] Allergy Intermediate hypervental Verified 09/19/21 12:18 ate Review of Systems Review of Systems: CONSTITUTIONAL: Denies fever ENT: Reports congestion, sore throat CARDIOVASCULAR: Reports edema. Denies chest pain RESPIRATORY: Reports cough and dyspnea. GASTROINTESTINAL: Denies abdominal pain, nausea, vomiting, or diarrhea. All systems reviewed & are unremarkable except as noted in HPI and below PMFSH Past Medical History Medical History Anxiety Bipolar 1 disorder Body mass index (BMI) of 40.1-44.9 in adult Brain tumor Decreased diffusion capacity Depression Distal radius fracture, left July 2020 Exercise hypoxemia Fracture of left upper extremity GERD (gastroesophageal reflux disease) History of tobacco abuse HTN (hypertension) Morbid obesity with BMI of 45.0-49.9, adult Nocturnal oxygen desaturation Obstructive sleep apnea on CPAP SIMEON (obstructive sleep apnea) With CPAP use Shortness of Breath Surgical History Surgical History Fracture of right distal radius Surgical repair on February 02, 2020 H/O gastric bypass H/O spinal fusion L4 through S1 2010 History of bladder suspension procedure March 2017 History of brain surgery Patient reports brain tumor was removed in the 1995 benign Pineal cystoma History of cholecystectomy History of total left knee replacement October 2012 Hx of tonsillectomy Family History Family History Mother Hypertension Diabetes mellitus Father Carcinoma of colon Sibling Multiple sclerosis Social History Social History (Updated 09/19/21 @ 15:12 by Verónica Taylor NP) Social History: 3 c disabilty quit 5 years ago Primary care physician: Dr. Megan Cano in [place], [place] Code status: Full code Smoking packs per day: 0.5 Smoking cigarettes per day: 10.0 Years smoked: 40 Smoking pack-years: 20.00 Smoking status: Former smoker Smoking end date: 08/23/15 Alcohol intake: never Substance use: never Additional living arrangement
[2021-09-19 10:52] LABS: CRP 2.1 mg/dL (<1.0)
[2021-09-19 11:04] LABS: Alveolar/Arterial O2 Gradient 40.1 mmHg; Base Excess ABG 1.3 mEq/l (+/-2.0); Carboxyhemoglobin 0.9 % THb (0-2.0); Fractional Inspired Oxygen 28 %; HCO3 ABG 27.1 mEq/l (22.0-26.0); Methemoglobin ABG 0.1 %THb (0-1.5); Oxygen Content ABG 19.5 %vol (16.0-22.0); Oxygen Saturation ABG 97.6 % (95.0-100.0); Oxyhemoglobin 96.4 % THb (90.0-100.0); PCO2 ABG 47.6 mmHg (35.0-45.0); PO2 ABG 103.4 mmHg (80.0-100.0); PO2 FiO2 Ratio Arterial Blood 3.69 %; Reduced Hemoglobin 2.6 %THb (0-5.0); Total Hemoglobin 14.3 g/dL (12.0-18.0); pH ABG 7.374 (7.350-7.450)
[2021-09-19 11:05] LABS: Device NASAL CANNULA; Modified Allen's Test Pass; Site Drawn LEFT RADIAL
[2021-09-19 11:17] LABS: Lactic Acid Reflex 1.5 mmol/L (0.7-2.1)
[2021-09-19 11:22] LABS: D Dimer 0.75 ug/mL (<0.48)
[2021-09-19 11:44] LABS: Influenza A QL RT-PCR Negative (Negative); Influenza B QL RT-PCR Negative (Negative); SARS-CoV-2 RNA PCR Negative
--- NOTE | 2021-09-19 12:02 | PC.NURSE ---
Assisted to BR without oxygen. Saturations when getting back into bed 88-90%. Placed back on 2 liters NC
--- NOTE | 2021-09-19 12:58 | PC.NURSE ---
Phlebotomy called for redraw after multiple prior attempts by RNs and techs. Clarified with Nicky NEWTON, who added blood cultures to be drawn prior to antibiotic administration.
--- NOTE | 2021-09-19 13:27 | PC.NURSE ---
pt found will all monitors and oxyen off. Assisted back to bed, educated on importance of leaving monitors in place and oxygen requirement. 88% on room air, placed back on 2 liters NC and recovered to 95%
--- NOTE | 2021-09-19 13:49 | PC.NURSE ---
Tech to call phlebotomy for update. Unable to hang antibiotics until cultures are drawn
--- NOTE | 2021-09-19 14:13 | PC.NURSE ---
Called phlebotomy again, they are attempting to send lead manufacturing technician at this time
[2021-09-19] MEDS: ALBUTEROL SULFATE (*SP) AEROSOL 1 PUFF 2 PUFF INHALATION ×2 (14:39→22:01)
--- NOTE | 2021-09-19 14:40 | PC.NURSE ---
Labs drawn and sent from phlebotomy.
[2021-09-19 15:01] LABS: Alanine Aminotransferase 18 U/L (4-35); Albumin Level 4.1 g/dL (3.5-5.1); Alkaline Phosphatase 69 U/L (38-126); Anion Gap 5 mmol/L (8-16); Aspartate Amino Transferase 25 U/L (14-36); Bilirubin,Total 0.6 mg/dL (0.2-1.3); Blood Urea Nitrogen 12 mg/dL (7-17); Calcium 8.9 mg/dL (8.4-10.2); Carbon Dioxide 29 mmol/L (22-30); Chloride 104 mmol/L (98-107); Estimated CRCL calculation 62 ml/min; Estimated Glomerular Filt Rate 50; Glucose 113 mg/dL (65-110); Lactate Dehydrogenase 579 U/L (313-618); Potassium 3.8 mmol/L (3.4-5.0); Sodium 138 mmol/L (137-145)
[2021-09-19 15:07] LABS: Prothrombin Time 12.8 Seconds (11.1-14.7)
[2021-09-19 15:08] LABS: Partial Thromboplastin Time 24.6 SECONDS (22.3-36.8)
--- NOTE | 2021-09-19 15:09 | PM.IMHP ---
H&P: HPI History of Present Illness Date/Time: 09/19/21 15:09 this is a 66-year-old female patient who has a history of obstructive sleep apnea. The patient typically wears 4 L of oxygen at night. The patient presents the emergency room with cold/flu symptoms that presented over the last couple days. She has a cough, congestion, chills, fatigue. She has been fully vaccinated for COVID and influenza. Today she checked her pulse ox and it was in the 70s. She is now on 2 L per nasal cannula. She does have some lower extremity edema at this time. Her D-dimer was slightly elevated 0.75. C reactive protein is 2.1. Chest x-ray was read as mild airspace opacities in the mid and lower lung zones consistent with atelectasis versus pneumonia. CTA of the chest shows no evidence of pulmonary embolism. Patchy ground glass densities scattered throughout both lungs suggesting small air disease are patchy pneumonia. The patient was started on azithromycin Rocephin and given an inhaler. The patient is being admitted to observation status on the date of service of 09/11/2019 tube. Chief Complaint: sob Review of Systems Review of Systems: All systems reviewed & are unremarkable except as noted in HPI and below Constitutional: Constitutional: Reports as per HPI and Reports no additional constitutional complaints Eyes: Eyes: Reports as per HPI and Reports no additional eye complaints ENT: Reports system reviewed and no additional complaints, except as documented and Reports Normal hearing present Cardiovascular: Cardiovascular: Reports no additional cardiovascular complaints Respiratory: Respiratory: Reports no additional respiratory complaints and Reports no additional respiratory complaints Gastrointestinal: Gastrointestinal: Reports as per HPI and Reports no additional gastrointestinal complaints Musculoskeletal: Musculoskeletal: Reports no additional musculoskeletal complaints Integumentary/Breasts: Skin/Breast: Reports system reviewed and no additional complaints, except as docu and Reports as per HPI Neurologic: Reports system reviewed and no additional complaints, except as documented, Reports as per HPI and Reports Normal hearing present Psychiatric: Psychiatric: Reports no additional psychiatric complaints and Reports as per HPI Endocrine: Endocrine: Reports no additional endocrine complaints Hematologic/Lymphatic: Hematologic/Lymphatic: Reports no additional hematologic/lymphatic complaints Allergic/Immunologic: Allergic/Immunologic: Reports no additional allergic/immunologic complaints [facility] Past Medical History Medical History (Updated 09/19/21 @ 17:31 by Verónica Taylor NP) Anxiety Bipolar 1 disorder Body mass index (BMI) of 40.1-44.9 in adult Brain tumor Decreased diffusion capacity Depression Distal radius fracture, left July 2020 Exercise hypoxemia Fracture of left upper extremity GERD (gastroesophageal reflux disease) History of tobacco abuse HTN (hypertension) Morbid obesity with BMI of 45.0-49.9, adult Nocturnal oxygen desaturation Obstructive sleep apnea on CPAP SIMEON (obstructive sleep apnea) With CPAP use Shortness of Breath Surgical History Surgical History Fracture of right distal radius Surgical repair on February 02, 2020 H/O gastric bypass H/O spinal fusion L4 through S1 2010 History of bladder suspension procedure March 2017 History of brain surgery Patient reports brain tumor was removed in the 1995 benign Pineal cystoma History of cholecystectomy History of total left knee replacement October 2012 Hx of tonsillectomy Family History Family History Mother Hypertension Diabetes mellitus Father Carcinoma of colon Sibling Multiple sclerosis Social History Social History (Updated 09/19/21 @ 17:24 by Verónica Taylor NP) Social History: The patient lives with her .
--- NOTE | 2021-09-19 15:25 | PC.NURSE ---
Pt off floor to CTA
--- NOTE | 2021-09-19 18:06 | PC.NURSE ---
pt complained of burning with infusion of azithromycin. 108 mL infused, stopped immediately upon complaint. Pain when flushing with saline. IV removed, attempting to regain IV access at this time.
--- NOTE | 2021-09-19 19:25 | PC.NURSE ---
Called patient's per patient request, gave update.
--- NOTE | 2021-09-20 | ECHO_ITS ---
Patient Info Name: Leydi Su Age: 66 years : 1955 Gender: Female Ht: 64 in Wt: 325 lbs BSA: 2.68 m2 HR: 78 bpm BP: 146 / 56 mmHg Heart Rhythm: Sinus Rhythm Technical Quality: Poor Exam Date: 09/20/2021 7:42 AM Exam Location: [facility] Room: [facility] Patient Status: Inpatient Admit Date: 09/19/2021 Staff Ordering Physician: Verónica Taylor NP Resident Associate: Radha Paul RDCS Attending Provider: Kathy Mena MD Referring Physician: Brandon DIMAS; Exam Type: CA echo dop color flow w con Study Info Indications - SOB COPD SLEEP APNEA EDEMA Complete two-dimensional, color flow and Doppler transthoracic echocardiogram is performed with contrast to opacify the left ventricle and to improve the deliniation of the left ventricle endocardial borders. Contrast/Agitated Saline Contrast/Ag. Saline: Definity Amount: 2.00 ml Reason for Poor Study: patient body habitus Summary 1. Technically difficult study with limited views. Regional wall motion assessment limited due to poor endomyocardial border definition. Definity contrast utilized. 2. Left ventricular systolic function is normal, estimated at >70%. 3. Left ventricular chamber dimension is normal. 4. The left ventricular diastolic function is normal. 5. There is no aortic valve stenosis. 6. There is trace mitral valve regurgitation. 7. There is trace tricuspid valve regurgitation. 8. Mild pulmonary hypertension, estimated pulmonary arterial systolic pressure is 39 mmHg. Left Ventricle Left ventricular chamber dimension is normal. Left ventricular systolic function is normal, estimated at >70%. There is no increased left ventricular wall thickness. The left ventricular diastolic function is normal. Technically difficult study with limited views. Regional wall motion assessment limited due to poor endomyocardial border definition. Definity contrast utilized. Right Ventricle Right ventricular chamber dimension is normal. Right ventricular systolic function is normal. Left Atria Left atrial chamber dimension is mildly enlarged. Right Atria Right atrial chamber dimension is mildly enlarged. Aortic Valve The aortic valve is probable trileaflet. There is no aortic valve stenosis. There is no aortic valve regurgitation. Pulmonic Valve The pulmonic valve is not well visualized. Mitral Valve The mitral valve has normal leaflets. There is trace mitral valve regurgitation. The mitral valve annulus is mildly calcified. Tricuspid Valve The tricuspid valve leaflets are normal. There is trace tricuspid valve regurgitation. Mild pulmonary hypertension, estimated pulmonary arterial systolic pressure is 39 mmHg. Pericardium/Pleural The pericardium appears normal. There is no pericardial effusion. Inferior Vena Cava Normal inferior vena cava with >50% collapse upon inspiration consistent with normal right atrial pressure, 5 mmHg. Aorta The aortic root size at the sinus of Valsalva is normal. Left Ventricular Outflow Tract Name Value Normal LVOT 2D LVOT Diameter 2.03 cm LVOT Doppler
[2021-09-20 07:42] LABS: Basophils Absolute Auto 0.1 K/mm3 (0.0-0.1); Basophils Percent Auto 0.6 % (0.2-1.2); Eosinophils Absolute Auto 0.2 K/mm3 (0-0.3); Eosinophils Percent Auto 2.4 % (0-4.4); Hematocrit 39.6 % (37.0-47.0); Hemoglobin 12.9 g/dL (12.0-15.0); Immature Granulocyte Percent A 1.3 % (0-0.5); Lymphocytes Absolute Auto 1.58 K/mm3 (0.9-3.2); Lymphocytes Percent Auto 20.3 % (18.3-44.2); Mean Corpuscular HGB Conc 32.6 g/dl (32-36); Mean Corpuscular Hemoglobin 31.5 pg (26-34); Mean Corpuscular Volume 96.8 fl (80-100); Mean Platelet Volume 8.7 fl (7.4-10.4); Monocytes Absolute Auto 0.8 K/mm3 (0.1-0.6); Monocytes Percent Auto 9.7 % (2.6-8.5); Neutrophils Absolute Auto 5.1 K/mm3 (1.3-6.7); Neutrophils Percent Auto 65.7 % (45.5-73.1); Platelet Count Result 200 k/mm3 (150-375); Red Blood Count 4.09 M/mm3 (4.2-5.4); White Blood Count 7.8 K/mm3 (4.5-10.0)
[2021-09-20] MEDS: PERFLUTREN LIPID MICROSPHERES 1.5 ML VIAL DILUTED TO 10 ML TOTAL VOLUME IV PUSH (08:30)
[2021-09-20 09:01] LABS: Alanine Aminotransferase 17 U/L (4-35); Albumin Level 3.4 g/dL (3.5-5.1); Alkaline Phosphatase 56 U/L (38-126); Anion Gap 4 mmol/L (8-16); Aspartate Amino Transferase 27 U/L (14-36); Bilirubin,Total 0.5 mg/dL (0.2-1.3); Blood Urea Nitrogen 8 mg/dL (7-17); CRP 2.1 mg/dL (<1.0); Calcium 8.8 mg/dL (8.4-10.2); Carbon Dioxide 28 mmol/L (22-30); Chloride 108 mmol/L (98-107); Estimated CRCL calculation 75 ml/min; Estimated Glomerular Filt Rate > 60; Glucose 106 mg/dL (65-110); Lactate Dehydrogenase 690 U/L (313-618); Lipase 19 U/L (23-300); Magnesium 1.9 mg/dL (1.6-2.3); Phosphorus 3.5 mg/dL (2.5-4.5); Sodium 140 mmol/L (137-145)
[2021-09-20 09:40] VITALS: PULSE 88
[2021-09-20] MEDS: amLODIPine BESYLATE 5 MG TABLET PO (09:40)
[2021-09-20] MEDS: lamoTRIgine 100 MG TABLET 200 MG PO ×2 (09:40→21:01)
[2021-09-20] MEDS: carvediloL 12.5 MG TABLET PO ×2 (09:40→21:00)
[2021-09-20] MEDS: DULoxetine HCL 60 MG CAPSULE.DR PO (09:40)
[2021-09-20] MEDS: PANTOPRAZOLE 40 MG TABLET PO (09:40)
[2021-09-20] MEDS: ENOXAPARIN 40 MG/0.4 ML SYRINGE SUB-Q (09:41)
[2021-09-20] MEDS: VITAMIN B COMPLEX/VIT C CAPSULE 1 EACH PO (09:41)
[2021-09-20] MEDS: LORazepam (*CRX) 1 MG TABLET 2 MG PO ×2 (11:29→18:41)
--- NOTE | 2021-09-20 12:34 | PM.IMPN ---
Progress Note: A&P Assessment and Plan (1) Pneumonia: Qualifiers: Laterality: bilateral Lung location: lower lobe of lung Pneumonia type: due to unspecified organism Qualified Code(s): J18.9 - Pneumonia, unspecified organism Code(s): J18.9 - Pneumonia, unspecified organism Status: Acute Assessment and Plan: COVID negative Continue azithromycin and ceftriaxone 09/20 stopped dexamethasone due to negative SARS-CoV2 PCR (2) Obstructive sleep apnea on CPAP: Code(s): G47.33 - Obstructive sleep apnea (adult) (pediatric); Z99.89 - Dependence on other enabling machines and devices Status: Acute Assessment and Plan: At home she uses 4 L at night Patient is on 2 L at rest currently (3) Emphysema of lung: Qualifiers: Emphysema type: unspecified Qualified Code(s): J43.9 - Emphysema, unspecified Code(s): J43.9 - Emphysema, unspecified Status: Acute Assessment and Plan: Continue with her inhalers. She was started on Decadron (4) HTN (hypertension): Qualifiers: Hypertension type: essential hypertension Qualified Code(s): I10 - Essential (primary) hypertension Code(s): I10 - Essential (primary) hypertension Status: Acute Assessment and Plan: Continue with home medication of amlodipine and Coreg (5) Anxiety: Code(s): F41.9 - Anxiety disorder, unspecified Status: Chronic Assessment and Plan: Continue with home medication sertraline and lorazepam. Subjective Date/time seen: 09/20/21 12:34 Interval history: 09/20 visit. No shortness of breath or chest pain. No GI or complaints. Chronic leg swelling about the same as usual. Review of Systems Review of Systems: All systems reviewed & are unremarkable except as noted in HPI and below Exam Narrative: HEENT: sclerae nonicteric, pharyngeal mucosa pink and intact NECK: No JVD CHEST: Clear to auscultation. Normal effort. HEART: NL S1/S2, regular, no murmur ABDOMEN: BS+, soft, nontender, no mass, no bruits EXTREMITIES: Lymphedema with trace pitting edema S NEUROLOGIC: CN intact and symmetric to inspection. MUSCULOSKELETAL: Tone and strength symmetric. PSYCH: Alert. Oriented to person, place, and time. Objective Data Vital Signs Vital Signs: Vital Signs - 24 hr 09/19/21 12:45 09/19/21 13:25 09/19/21 13:26 Temperature Pulse Rate 83 96 98 Respiratory Rate 25 H 21 H 11 L Blood Pressure 144/52 H Pulse Oximetry 83 L 94 09/19/21 13:30 09/19/21 13:31 09/19/21 13:45 Temperature Pulse Rate 85 87 91 Respiratory Rate 22 H 21 H 21 H Blood Pressure 126/56 L Pulse Oximetry 95 95 94 09/19/21 13:46 09/19/21 14:00 09/19/21 14:01 Temperature Pulse Rate 90 Respiratory Rate 24 H Blood Pressure 132/61 140/62 Pulse Oximetry 96 94 95 09/19/21 14:15 09/19/21 14:16 09/19/21 14:30 Temperature Pulse Rate 82 Respiratory Rate 16 Blood Pressure 138/64 Pulse Oximetry 96 94 09/19/21 15:46 09/19/21 16:04 09/19/21 16:15 Temperature Pulse Rate 91 84 Respiratory Rate Blood Pressure Pulse Oximetry 98 09/19/21 16:45 09/19/21 16:46 09/19/21 17:00 Temperature Pulse Rate 91 81 89 Respiratory Rate 30 H 25 H 19 Blood Pressure Pulse Oximetry 95 97 92 09/19/21 17:01 09/19/21 17:15 09/19/21 17:16 Temperature Pulse Rate 87 83 84 Respiratory Rate 36 H 26 H 27 H Blood Pressure 161/65 H 145/73 H Pulse Oximetry 92 91 92 09/19/21 17:30 09/19/21 17:31 09/19/21 17:45 Temperature Pulse Rate 86 83 87 Respiratory Rate 15 17 25 H Blood Pressure 138/55 L Pulse Oximetry 09/19/21 17:46 09/19/21 18:00 09/19/21 18:15 Temperature Pulse Rate 89 79 86 Respiratory Rate 19 28 H 13 Blood Pressure 144/62 H Pulse Oximetry 09/19/21 18:30 09/19/21 18:45 09/19/21 19:00 Temperature Pulse Rate 88 87 84 Respiratory Rate 14 17 22 H Blood Pressure Pulse Oximetry
[2021-09-20 14:00] VITALS: BP 131/62; PULSE 86; RESP 22; TEMP 37.2; O2SAT 91
[2021-09-20] MEDS: ARIPiprazole 10 MG TABLET 30 MG PO (18:19)
[2021-09-20 21:00] VITALS: PULSE 98
[2021-09-20] MEDS: traZODone HCL 50 MG TABLET 100 MG PO (21:01)
[2021-09-20 22:00] VITALS: BP 155/63; PULSE 98; RESP 18; TEMP 36.3; O2SAT 92
[2021-09-21] MEDS: LORazepam (*CRX) 1 MG TABLET 2 MG PO ×2 (00:56→10:02)
[2021-09-21 06:00] VITALS: BP 150/46; PULSE 87; RESP 18; TEMP 36.1; O2SAT 96
[2021-09-21] MEDS: DULoxetine HCL 60 MG CAPSULE.DR 120 MG PO (09:44)
[2021-09-21 09:45] VITALS: PULSE 80
[2021-09-21] MEDS: SERTRALINE HCL 50 MG TABLET 200 MG PO (09:45)
[2021-09-21] MEDS: PANTOPRAZOLE 40 MG TABLET PO (09:45)
[2021-09-21] MEDS: carvediloL 12.5 MG TABLET PO (09:45)
[2021-09-21] MEDS: VITAMIN B COMPLEX/VIT C CAPSULE 1 EACH PO (09:45)
[2021-09-21] MEDS: amLODIPine BESYLATE 5 MG TABLET PO (09:47)
[2021-09-21] MEDS: lamoTRIgine 100 MG TABLET 200 MG PO (09:47)
[2021-09-21] MEDS: ENOXAPARIN 40 MG/0.4 ML SYRINGE SUB-Q (09:47)
[2021-09-21] MEDS: HYDROcodone/acetaminophen (*CRX) 10-325 MG TABLET 1 TAB PO (10:02)
--- NOTE | 2021-09-21 11:41 | PM.DS ---
DS: Admitting Diagnosis Discharge Date Patient was seen and examined September 21, 2021 Admitting Diagnosis Pneumonia DS: Discharge Diagnosis Discharge Diagnosis (1) Pneumonia: Qualifiers: Laterality: bilateral Lung location: lower lobe of lung Pneumonia type: due to unspecified organism Qualified Code(s): J18.9 - Pneumonia, unspecified organism Code(s): J18.9 - Pneumonia, unspecified organism Status: Acute Assessment and Plan: COVID negative Continue azithromycin and ceftriaxone 09/20 stopped dexamethasone due to negative SARS-CoV2 PCR Continue cefdinir and azithromycin (2) Obstructive sleep apnea on CPAP: Code(s): G47.33 - Obstructive sleep apnea (adult) (pediatric); Z99.89 - Dependence on other enabling machines and devices Status: Acute Assessment and Plan: At home she uses 4 L at night Patient is on R/A currently (3) Emphysema of lung: Qualifiers: Emphysema type: unspecified Qualified Code(s): J43.9 - Emphysema, unspecified Code(s): J43.9 - Emphysema, unspecified Status: Acute Assessment and Plan: Continue with her inhalers. She was started on Decadron (4) HTN (hypertension): Qualifiers: Hypertension type: essential hypertension Qualified Code(s): I10 - Essential (primary) hypertension Code(s): I10 - Essential (primary) hypertension Status: Acute Assessment and Plan: Continue with home medication of amlodipine and Coreg (5) Anxiety: Code(s): F41.9 - Anxiety disorder, unspecified Status: Chronic Assessment and Plan: Continue with home medication sertraline and lorazepam. DS: Summary Hospital Course Reason for hospitalization: Pneumonia Hospital Course: Admitted with cough and dyspnea. Found to have pulmonary infiltrates. COVID-19 swab negative. Treated with steroids is azithromycin and ceftriaxone. Gradually improved with mentation diet and strength. Status at Discharge Overall status at discharge: patient is progressing back to baseline Time Spent with Patient Time attestation: Total time spent providing and/or coordinating discharge services: Time spent: Greater than 30 minutes Exam Narrative: HEENT: sclerae nonicteric, pharyngeal mucosa pink and intact NECK: No JVD CHEST: Clear to auscultation. Normal effort. HEART: NL S1/S2, regular, no murmur ABDOMEN: BS+, soft, nontender, no mass, no bruits EXTREMITIES: Lymphedema with trace pitting edema S NEUROLOGIC: CN intact and symmetric to inspection. MUSCULOSKELETAL: Tone and strength symmetric. PSYCH: Alert. Oriented to person, place, and time. DS: Data Data Completed and Pending Labs on day of discharge: Preliminary micro results at discharge 09/19/21 14:38 Blood Culture - Preliminary Blood 09/19/21 14:38 Blood Culture - Preliminary Blood Discharge Plan Discharge Consulting providers: Nicky Nick ; Josh Mcgowan ; Verónica Taylor ; Ray Méndez ; Maurice Hall ; Manuelito Cohen ; Dre Chavez V. Discharging Clinician: Josh Mcgowan Patient Disposition: Home, Self-Care Activity: as tolerated Diet: heart healthy Discharge Instructions: Complete antibiotics. Call Dr. Umanzor 09/22 to schedule office visit. Wear CPAP with 4L oxygen while sleeping. Patient Instructions: Antibiotic Form Stand Alone Forms: General Discharge Information Follow-up/Referrals: Yannick Umanzor, DO [Primary Care Provider] - 1 Week Discharge Medications: New azithromycin 500 mg tablet 500 mg PO QPM 3 Days Qty: 3 RF: 0 cefdinir 300 mg capsule 300 mg PO BID Qty: 7 RF: 0 Continued B Complex Plus Vitamin C 45-21-05-5-300 mg capsule 1 cap PO DAILY RF: 0 cholecalciferol (vitamin D3) 1,250 mcg (50,000 unit) capsule 1,250 mcg PO DAILY RF: 0 duloxetine [Cymbalta] 60 mg capsule,delayed release(DR/EC) 60 mg PO BID RF: 0 lorazepam 1 mg tablet 2 mg PO TID MT
== END 2021-09-21 14:15 | disposition home or self-care (01) | DRG 193 ==
LOC: ANHED 16:58 → ANH3MEDSUR 18:40
PROVIDERS: Nurse Practitioner; Physician Assistant; Admitting Provider Hospitalist; Emergency Provider Emergency Medicine; PCP Internal Medicine; Visit Provider Hospitalist
DX: J18.9 Pneumonia, unspecified organism (principal); J96.01 Acute respiratory failure with hypoxia; Z68.41 Body mass index [BMI] 40.0-44.9, adult; Z99.81 Dependence on supplemental oxygen; J43.9 Emphysema, unspecified; Z20.822 Contact with and (suspected) exposure to COVID-19; F41.9 Anxiety disorder, unspecified; F31.9 Bipolar disorder, unspecified; E66.01 Morbid (severe) obesity due to excess calories; K21.9 Gastro-esophageal reflux disease without esophagitis; Z87.891 Personal history of nicotine dependence; I10 Essential (primary) hypertension; G47.33 Obstructive sleep apnea (adult) (pediatric); Z98.84 Bariatric surgery status; Z98.1 Arthrodesis status
CPT/HCPCS: 36415; 36600; 71045; 71275; 80053; 82375; 82728; 82805; 83050; 83605; 83615; 83690; 83735; 84100; 84443; 85025; 85380; 85610; 85730; 86140; 87040; 87502; 93005; 94640; 96365; 96366; 96367; 96372; 96375; 97161; 99285; A9270; C8929; C9803; G0378; J0456; J0696; J1100; J1650; Q9957; Q9967; U0003; U0005

== ENCOUNTER 2021-10-24 08:07 | Outpatient (CLI) | payer OTHER, MEDICARE, SELFPAY | END 2021-10-24 08:08 | disposition home or self-care (01) | LOC: ANHSURGERY 08:11 | PROVIDERS: PCP Internal Medicine; Visit Provider Urology | DX: N36.42 Intrinsic sphincter deficiency (ISD) (principal); Z01.818 Encounter for other preprocedural examination | CPT/HCPCS: 87077; 87086; 87186 ==

== ENCOUNTER 2021-10-29 10:02 | Emergency (ER) | payer OTHER, MEDICARE, SELFPAY ==
--- NOTE | ~2021-10-29 | XR_ITS ---
EXAMINATION: XR chest 2V EXAM DATE: 10/29/2021 10:44 INDICATION: dyspnea HX OF PNA TECHNIQUE: Frontal and lateral projections of the chest obtained and reviewed. Comparison is made to prior examination from 09/19/2021. FINDINGS: The lungs are clear. There are no pleural effusions. The cardiomediastinal silhouette is within normal limits. There is no pneumothorax suspected. The bones and soft tissues are unremarkab le. IMPRESSION: No acute cardiopulmonary findings. Reviewed, dictated and finalized at location A. TY DIRECTOR
[2021-10-29 10:17] VITALS: BP 154/80; PULSE 92; RESP 20; TEMP 37; O2SAT 92
--- NOTE | 2021-10-29 10:19 | ECG_ITS ---
Measurements Intervals [place] Rate: 62 P: 13 HI: 149 QRS: 19 QRSD: 97 T: 40 QT: 407 QTc: 416 Interpretive Statements SINUS RHYTHM BASELINE ARTIFACT LOW-VOLTAGE QRS PERICARDIAL LEADS BORDERLINE ECG COMPARED TO ECG 09/19/2021 10:48:10 NO SIGNIFICANT CHANGES Electronically Signed On 10-29-2021 13:25:22 ACCOUNTING DIRECTOR by Ray Méndez M.D.
[2021-10-29 10:40] LABS: Basophils Absolute Auto 0.1 K/mm3 (0.0-0.1); Basophils Percent Auto 0.6 % (0.2-1.2); Eosinophils Absolute Auto 0.4 K/mm3 (0-0.3); Eosinophils Percent Auto 4.8 % (0-4.4); Hemoglobin 14.5 g/dL (12.0-15.0); Immature Granulocyte Absolute 0.04 K/mm3 (0.00-0.031); Immature Granulocyte Percent A 0.5 % (0-0.5); Immature Platelet Fraction Pct 2.9 % (0.9-11.2); Lymphocytes Percent Auto 16.5 % (18.3-44.2); Mean Corpuscular HGB Conc 31.5 g/dl (32-36); Mean Corpuscular Hemoglobin 31.3 pg (26-34); Mean Corpuscular Volume 99.1 fl (80-100); Mean Platelet Volume 9.3 fl (7.4-10.4); Monocytes Absolute Auto 0.6 K/mm3 (0.1-0.6); Monocytes Percent Auto 6.5 % (2.6-8.5); Neutrophils Percent Auto 71.1 % (45.5-73.1); Platelet Count Result 221 k/mm3 (150-375); Red Blood Count 4.64 M/mm3 (4.2-5.4); Red Cell Distribution Width 13.7 % (11.5-14.5); White Blood Count 8.5 K/mm3 (4.5-10.0)
[2021-10-29 10:56] LABS: Alanine Aminotransferase 18 U/L (4-35); Albumin Level 4.2 g/dL (3.5-5.1); Alkaline Phosphatase 70 U/L (38-126); Anion Gap 7 mmol/L (8-16); Aspartate Amino Transferase 26 U/L (14-36); Bilirubin,Total 0.5 mg/dL (0.2-1.3); Blood Urea Nitrogen 12 mg/dL (7-17); Calcium 8.8 mg/dL (8.4-10.2); Carbon Dioxide 28 mmol/L (22-30); Chloride 106 mmol/L (98-107); Estimated CRCL calculation 68 ml/min; Estimated Glomerular Filt Rate 56; Glucose 122 mg/dL (65-110); Potassium 3.7 mmol/L (3.4-5.0); Sodium 141 mmol/L (137-145)
[2021-10-29 11:08] LABS: Troponin I < 0.012 ng/mL (0.000-0.034)
--- NOTE | 2021-10-29 12:15 | ED.SOB ---
HPI - SOB/Dyspnea General Chief Complaint: Shortness of Breath/Dyspnea Stated Complaint: Sent from pcp for CXR, to r/o pnuemonia Time Seen by Provider: 10/29/21 12:07 Source: patient Mode of arrival: ambulatory Limitations: no limitations History of Present Illness HPI Narrative: Patient is a 66-year-old female sent here by her PCP to get chest x-ray to rule out pneumonia. Patient states that she was diagnosed with pneumonia approximately 3 to 4 weeks ago was placed on oral antibiotics but continues to have cough, productive, white-yellowish sputum accompanied by occasional shortness of breath. Patient denies any chest pain, abdominal pain, nausea, vomiting, diaphoresis, fever or chills. Related Data Home Medications Medication Instructions Recorded Confirmed aripiprazole 2 mg tablet 30 mg PO QPM 01/30/20 10/21/21 lamotrigine 25 mg tablet 200 mg PO BID 01/30/20 10/21/21 sertraline 25 mg tablet 100 mg PO BID 01/30/20 10/21/21 trazodone 50 mg tablet 100 mg PO HS tablet 02/15/20 10/21/21 cholecalciferol (vitamin D3) 1,250 1,250 mcg PO HS 04/11/20 10/21/21 mcg (50,000 unit) capsule vitamin B comp and C no.3 15 mg-10 1 cap PO HS 04/11/20 10/21/21 mg-50 mg-5 mg-300 mg capsule carvedilol 3.125 mg tablet 12.5 mg PO Q12H tablet 01/21/21 10/21/21 duloxetine 60 mg capsule,delayed 60 mg PO BID cap 01/21/21 10/21/21 release lorazepam 1 mg tablet 2 mg PO TID PRN tablet 01/21/21 10/21/21 ferrous fumarate 89 mg (29 mg 89 mg PO HS 07/23/21 10/21/21 iron) tablet oxybutynin chloride 10 mg PO HS 09/19/21 10/21/21 amlodipine 5 mg PO QAM 10/21/21 10/21/21 Allergies Allergy/AdvReac Type Severity Reaction Status Date / Time acyclovir [From Zovirax] Allergy Severe Hives Verified 10/29/21 12:07 omeprazole [From Prilosec] Allergy Intermediate hypervental Verified 10/29/21 12:07 ate Review of Systems Review of Systems: All systems reviewed & are unremarkable except as noted in HPI and below Constitutional: Constitutional: Denies body ache(s), Denies chills, Denies excessive sweating, Denies fatigue, Denies fever(s), Denies headache(s), Denies lethargy, Denies malaise, Denies weakness and Denies weight loss Eyes: Eyes: Denies blurry vision, Denies change in vision and Denies loss of vision ENT: Denies dizziness, Denies ear discharge, Denies headache(s), Denies lip swelling, Denies epistaxis, Denies nasal congestion, Denies neck pain, Denies throat swelling and Denies tongue swelling Cardiovascular: Cardiovascular: Denies chest pain, Denies chest pain at rest, Denies chest pain with activity, Denies diaphoresis, Denies rapid heart rate, Denies edema, Denies irregular heart rhythm, Denies lightheadedness, Denies palpitations and Denies dyspnea on exertion Respiratory: Respiratory: Denies hemoptysis and Denies dyspnea on exertion Gastrointestinal: Gastrointestinal: Denies abdominal pain, Denies melena, Denies hematochezia, Denies diarrhea, Denies nausea, Denies vomiting and Denies hematemesis Musculoskeletal: Musculoskeletal: Denies abnormal gait, Denies deformity, Denies joint swelling, Denies limited range of motion, Denies neck pain and Denies numbness Neurologic: Denies Abnormal speech present, Denies abnormal gait, Denies confusion, Denies dizziness, Denies headache(s), Denies focal weakness, Denies loss of vision, Denies numbness, Denies Other visual disturbances, Denies Sensory deficit (Neuro) and Denies weakness Psychiatric: Psychiatric: Denies confusion, Denies depression, Denies auditory hallucinations, Denies homicidal ideation and Denies suicidal ideation Endocrine: Endocrine: Denies cold intolerance, Denies excessive sweating, Denies fatigue, Denies heat intolerance and Denies palpitations Hematologic/Lymphatic: Hematologic/Lymphatic: Denies easy bleeding and Denies easy bruising Allergic/Immunologic: Allergic/Immunologic: Denies lip swelling, Denies throat swelling and Denies tongue swelling PMFSH Past Medical History Me
[2021-10-29 12:45] VITALS: BP 157/75; PULSE 69; RESP 14; O2SAT 94
[2021-10-29 13:15] VITALS: BP 162/86; PULSE 64; RESP 14; O2SAT 96
[2021-10-29 13:45] VITALS: BP 154/76; PULSE 66; RESP 16; O2SAT 96
== END 2021-10-29 13:45 | disposition home or self-care (01) ==
PROVIDERS: Emergency Medicine; Emergency Provider Emergency Medicine; PCP Internal Medicine
DX: J40 Bronchitis, not specified as acute or chronic (principal); F41.9 Anxiety disorder, unspecified; F31.9 Bipolar disorder, unspecified; K21.9 Gastro-esophageal reflux disease without esophagitis; I10 Essential (primary) hypertension; G47.30 Sleep apnea, unspecified
CPT/HCPCS: 36415; 71046; 80053; 84484; 85025; 85055; 93005; 96372; 99284; J1100

== ENCOUNTER 2021-10-31 00:49 | Day surgery (SDC) | payer OTHER, MEDICARE, SELFPAY ==
[2021-10-21 12:39] VITALS: BMI 51.5
--- NOTE | 2021-10-21 12:52 | PC.NURSE ---
Report to the Outpatient Waiting Room, entrance under the green pavilion located off [facility], at time _0600_ on date _10/31/21_. OR Time: __0730__. - You and your visitor will be asked a series of questions to screen for COVID 19 for your protection. - A mask is required within the hospital. One visitor will be allowed to accompany the patient into the hospital. Patients visitor will be instructed to remain with patient at all times or leave the building. We will allow the visitor to come back to the postoperative area when patient is ready. Preoperative COVID Testing Requirements: NONE Patients may have clear liquids (water, carbonated beverages, clear teas, apple juice) until 3 hours prior to surgery (0430 AM) with a maximum of 20 ounces. - No food from midnight until time of surgery Take the following medications with a SIP of water the morning of surgery: _AMLODIPINE, CARVEDILOL, DULOXETINE, LORAZEPAM, SERTRALINE, INHALER IF NEEDED__ Medications to discontinue per ANESTHESIA - _ ALL VITAMINS AND SUPPLEMENTS 3 DAYS PRIOR TO SURGERY, Date to take last dose_10/27/21_ Please no make-up, nail spanish, hairspray, perfume, deodorant, or body powder the day of surgery. No jewelry (including any body piercings) or valuables the day of surgery, leave them at home. Please take a shower or bath the night before, or the morning of, surgery with an antibacterial soap. Wear comfortable, loose fitting clothing. - Jewelry must be removed prior to entering the operating room. Rings and piercings that are not removed may be cut off. - The hospital will not accept responsibility for valuables. - Please leave all valuables, including medications, at home the day of surgery. If you are going home after surgery, a licensed delivery driver must drive you home. - NO public transportation without another adult. - We recommend that an adult stay with you for 24 hours following discharge. - We also recommend that you do not drive, make important decision, drink alcoholic beverages, or take any drugs that were not prescribed by your health care provider for at least 24 hours after your discharge time. Follow any additional instructions given to you from your surgeon. Telephone instructions given to ____PT and asked if any additional questions and then verbalized understanding. Patient advised to call surgeon office or pre surgery nurse liaison [phone] if any additional questions.
--- NOTE | 2021-10-26 16:49 | PM.IMHP ---
H&P: HPI History of Present Illness Date/Time: 10/26/21 16:49 XIOMARA due to ISD OAB symptoms as well Chief Complaint: ISD Review of Systems Review of Systems: All systems reviewed & are unremarkable except as noted in HPI and below PMFSH Past Medical History Medical History Anxiety Bipolar 1 disorder Body mass index (BMI) of 40.1-44.9 in adult Brain tumor Decreased diffusion capacity Depression Distal radius fracture, left July 2020 Exercise hypoxemia Fracture of left upper extremity GERD (gastroesophageal reflux disease) History of tobacco abuse HTN (hypertension) Morbid obesity with BMI of 45.0-49.9, adult Nocturnal oxygen desaturation Obstructive sleep apnea on CPAP SIMEON (obstructive sleep apnea) With CPAP use Shortness of Breath Surgical History Surgical History Fracture of right distal radius Surgical repair on February 02, 2020 H/O gastric bypass H/O spinal fusion L4 through S1 2010 History of bladder suspension procedure March 2017 History of brain surgery Patient reports 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 She has 3 children. She is disabled. She quit smoking 5 years ago. The patient denies any marijuana alcohol or illicit drugs. Her is a durable power immigration attorney for healthcare. Primary care physician: Dr. Megan Cano in [place], [place] Code status: Full code Smoking packs per day: 0.5 Smoking cigarettes per day: 10.0 Years smoked: 40 Smoking pack-years: 20.00 Smoking status: Former smoker Tobacco type: cigarettes Second hand tobacco smoke exposure: No Smoking end date: 08/23/14 Alcohol intake: never Substance use: never Substance use type: does not use Additional living arrangements comments: The patient lives in [place] with her of 5 years, Ed Su. 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 Gender identity (if verbalized by the patient): Female Spiritual care concerns: No Meds Home Medications and Allergies Home Medications Medication Instructions Recorded Confirmed Type aripiprazole 2 mg tablet 30 mg PO QPM 01/30/20 10/21/21 History lamotrigine 25 mg tablet 200 mg PO BID 01/30/20 10/21/21 History sertraline 25 mg tablet 100 mg PO BID 01/30/20 10/21/21 History trazodone 50 mg tablet 100 mg PO HS tablet 02/15/20 10/21/21 History cholecalciferol (vitamin D3) 1,250 1,250 mcg PO HS 04/11/20 10/21/21 History mcg (50,000 unit) capsule vitamin B comp and C no.3 15 mg-10 1 cap PO HS 04/11/20 10/21/21 History mg-50 mg-5 mg-300 mg capsule carvedilol 3.125 mg tablet 12.5 mg PO Q12H tablet 01/21/21 10/21/21 History duloxetine 60 mg capsule,delayed 60 mg PO BID cap 01/21/21 10/21/21 History release lorazepam 1 mg tablet 2 mg PO TID PRN tablet 01/21/21 10/21/21 History albuterol sulfate 90 mcg/actuation 1 - 2 puff INHALATION Q4-6H PRN 07/23/21 10/21/21 Rx aerosol inhaler #8.5 g ferrous fumarate 89 mg (29 mg 89 mg PO HS 07/23/21 10/21/21 History iron) tablet pantoprazole 40 mg tablet,delayed 40 mg PO QAM 30 Days #30 tablet 07/23/21 10/21/21 Rx release oxybutynin chloride 10 mg PO HS 09/19/21 10/21/21 History amlodipine 5 mg PO QAM 10/21/21 10/21/21 History Allergies Allergy/AdvReac Type Severity Reaction Status Date / Time acyclovir [From Zovirax] Allergy Severe Hives Verified 10/21/21 12:33 omeprazole [From Naye
--- NOTE | 2021-10-30 12:52 | WPDANESEPPF ---
Anes - Initial Pre Proc Eval Procedure: Operation Date: 10/31/21 07:30 Proposed Procedures p Cystoscopy with Injection of Bulking Agent - Domingo Krishnamurthy MD Date/Time: 10/30/21 12:52 Surgeon: Domingo Krishnamurthy MD Pre Op Diagnosis: Intrinc Sphincter Patient Data Age: 66 Gender: F Height: 1.63 m Weight: 136.36 kg Allergies Allergy/AdvReac Type Severity Reaction Status Date / Time acyclovir [From Zovirax] Allergy Severe Hives Verified 10/29/21 12:07 omeprazole [From Prilosec] Allergy Intermediate hypervental Verified 10/29/21 12:07 ate Home Medications Medication Instructions Recorded Confirmed Type aripiprazole 2 mg tablet 30 mg PO QPM 01/30/20 10/29/21 History lamotrigine 25 mg tablet 200 mg PO BID 01/30/20 10/29/21 History sertraline 25 mg tablet 100 mg PO BID 01/30/20 10/29/21 History trazodone 50 mg tablet 100 mg PO HS tablet 02/15/20 10/29/21 History cholecalciferol (vitamin D3) 1,250 1,250 mcg PO HS 04/11/20 10/29/21 History mcg (50,000 unit) capsule vitamin B comp and C no.3 15 mg-10 1 cap PO HS 04/11/20 10/29/21 History mg-50 mg-5 mg-300 mg capsule carvedilol 3.125 mg tablet 12.5 mg PO Q12H tablet 01/21/21 10/29/21 History duloxetine 60 mg capsule,delayed 60 mg PO BID cap 01/21/21 10/29/21 History release lorazepam 1 mg tablet 2 mg PO TID PRN tablet 01/21/21 10/29/21 History albuterol sulfate 90 mcg/actuation 1 - 2 puff INHALATION Q4-6H PRN 07/23/21 10/29/21 Rx aerosol inhaler #8.5 g ferrous fumarate 89 mg (29 mg 89 mg PO HS 07/23/21 10/29/21 History iron) tablet pantoprazole 40 mg tablet,delayed 40 mg PO QAM 30 Days #30 tablet 07/23/21 10/29/21 Rx release oxybutynin chloride 10 mg PO HS 09/19/21 10/29/21 History amlodipine 5 mg PO QAM 10/21/21 10/29/21 History Patient hx anesthesia problems: none Family hx anesthesia problems: none Results Review: All pre-operative results and documents have been reviewed as part of the pre-operative evaluation. [facility] Past Medical History Medical History (Updated 10/30/21 @ 00:00 by Bonita Braden) Anxiety Bipolar 1 disorder Body mass index (BMI) of 40.1-44.9 in adult Brain tumor Decreased diffusion capacity Depression Distal radius fracture, left July 2020 Exercise hypoxemia Fracture of left upper extremity GERD (gastroesophageal reflux disease) History of tobacco abuse HTN (hypertension) Morbid obesity with BMI of 45.0-49.9, adult Nocturnal oxygen desaturation Obstructive sleep apnea on CPAP SIMEON (obstructive sleep apnea) With CPAP use Shortness of Breath Surgical History Surgical History Fracture of right distal radius Surgical repair on February 02, 2020 H/O gastric bypass H/O spinal fusion L4 through S1 2010 History of bladder suspension procedure March 2017 History of brain surgery Patient reports 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 She has 3 children. She is disabled. She quit smoking 5 years ago. The patient denies any marijuana alcohol or illicit drugs. Her is a durable power health care attorney for healthcare. Primary care physician: Dr. Megan Cano in [place], [place] Code status: Full code Smoking packs per day: 0.5 Smoking cigarettes per day: 10.0 Years smoked: 40 Smoking pack-years: 20.00 Smoking status: Former smoker Tobacco type: cigarettes Second hand tobacco smoke exposure: No Smoking end date: 08/23/14 Alcohol intake: never Substance use: never Substance use
[2021-10-31] VITALS (8 sets, daily range): BP systolic 131–163; BP diastolic 64–94; PULSE 66–77; RESP 16–20; TEMP 36.4–37.3; O2SAT 92–100
[2021-10-31] MEDS: LACTATED RINGERS 1,000 ML 30 ML IV CONT (06:55)
--- NOTE | 2021-10-31 07:23 | WPDHPUPDATE1 ---
History and Physical Update Update Date/Time: 10/31/21 07:23 History and Physical has been reviewed, including an updated exam of the patient. There are NO changes in the patient's condition. Risks, benefits, and alternatives have been discussed and questions answered. Patient agrees to proceed with procedure.
--- NOTE | 2021-10-31 07:27 | WPDHPUPDATE1 ---
History and Physical Update Update Date/Time: 10/31/21 07:27 History and Physical has been reviewed, including an updated exam of the patient. There are NO changes in the patient's condition. Risks, benefits, and alternatives have been discussed and questions answered. Patient agrees to proceed with procedure. Cystoscopy, urethral bulking agent
[2021-10-31] MEDS: ceFAZolin 3 GM/D5W 100 ML 100 ML IVPB (07:34)
--- NOTE | 2021-10-31 08:11 | W.PM.PROC2 ---
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 They desires surgical correction. They understand the risk of bleeding, and infection, lack of efficacy, need for repeat procedures, obstructive voiding requiring catheterization. They agreed to proceed. Findings Open urethra consistent with intrinsic sphincter deficiency Description of Procedure The patient was correctly identified and informed consent was obtained. They were brought to the operating room. They were given anesthesia. They were placed in the dorsal lithotomy position. They were prepped and draped in a sterile fashion. A time-out performed. Cystoscopy revealed no tumors in the bladder and an open urethra consistent with intrinsic sphincter deficiency. I injected the bulking agent into the urethra. I did this 2 cm distal to the bladder neck. The urethra was very friable. I made 5 pillows coapted the urethra. There was good bulking effect. The bladder was left partially full. They were awakened and transferred to the PACU in stable condition. Implants Urethral bulking agent Estimated Blood Loss 1 Drains No Packing No Pathology None sent Complications No immediate complications Condition Stable Disposition PACU
--- NOTE | 2021-10-31 08:19 | SUR.PHASEI ---
Patient states, I wear 4L NC at night at home. RN took off simple mask at 0819 and put patient on 4L NC.
== END 2021-10-31 09:40 | disposition home or self-care (01) ==
PROVIDERS: PCP Internal Medicine; Visit Provider Urology
PROC: 3E0K8GC Introduction of Other Therapeutic Substance into Genitourinary Tract, Via Natural or Artificial Opening Endoscopic (ICD-10-PCS; CPT 51715; principal; 2021-10-31 07:30)
DX: N36.42 Intrinsic sphincter deficiency (ISD) (principal); Z79.51 Long term (current) use of inhaled steroids; I10 Essential (primary) hypertension; F41.9 Anxiety disorder, unspecified; F31.9 Bipolar disorder, unspecified; G47.33 Obstructive sleep apnea (adult) (pediatric); E66.01 Morbid (severe) obesity due to excess calories; Z68.43 Body mass index [BMI] 50.0-59.9, adult; Z98.84 Bariatric surgery status; Z98.1 Arthrodesis status; Z87.891 Personal history of nicotine dependence
CPT/HCPCS: 51715; A9270; J0690; J2405; J2704; J7120; L8606

== ENCOUNTER 2021-11-07 11:45 | Outpatient (CLI) | payer OTHER, MEDICARE, SELFPAY ==
[2021-11-07 12:08] LABS: Basophils Percent Auto 0.4 % (0.2-1.2); Eosinophils Absolute Auto 0.4 K/mm3 (0-0.3); Eosinophils Percent Auto 4.6 % (0-4.4); Hematocrit 46.7 % (37.0-47.0); Hemoglobin 14.5 g/dL (12.0-15.0); Immature Granulocyte Absolute 0.09 K/mm3 (0.00-0.031); Lymphocytes Absolute Auto 1.46 K/mm3 (0.9-3.2); Lymphocytes Percent Auto 15.8 % (18.3-44.2); Mean Corpuscular Hemoglobin 31.2 pg (26-34); Mean Corpuscular Volume 100.4 fl (80-100); Mean Platelet Volume 8.5 fl (7.4-10.4); Monocytes Absolute Auto 0.7 K/mm3 (0.1-0.6); Monocytes Percent Auto 7.2 % (2.6-8.5); Neutrophils Absolute Auto 6.6 K/mm3 (1.3-6.7); Platelet Count Result 196 k/mm3 (150-375); Red Blood Count 4.65 M/mm3 (4.2-5.4); Red Cell Distribution Width 13.8 % (11.5-14.5); White Blood Count 9.2 K/mm3 (4.5-10.0)
[2021-11-07 12:43] LABS: Alanine Aminotransferase 16 U/L (4-35); Albumin Level 3.9 g/dL (3.5-5.1); Alkaline Phosphatase 72 U/L (38-126); Anion Gap 7 mmol/L (8-16); Aspartate Amino Transferase 23 U/L (14-36); Bilirubin,Total 0.4 mg/dL (0.2-1.3); Blood Urea Nitrogen 10 mg/dL (7-17); Calcium 8.7 mg/dL (8.4-10.2); Carbon Dioxide 33 mmol/L (22-30); Chloride 102 mmol/L (98-107); Estimated Glomerular Filt Rate 50; Glucose 122 mg/dL (65-110); Potassium 3.6 mmol/L (3.4-5.0); Sodium 142 mmol/L (137-145)
[2021-11-07 12:49] LABS: Immunoglobulin A 65 mg/dL (70-400); Immunoglobulin G 896 mg/dL (700-1600); Immunoglobulin M 40 mg/dL (40-230)
[2021-11-10 12:22] LABS: Kappa\\Lambda Light Chains 1.23 (0.26-1.65); Lambda Light Chain 12.8 mg/L (5.7-26.3)
[2021-11-11 15:53] LABS: Abnormal Protein Band 1 0.4 g/dL; Albumin 3.8 g/dL (3.8-4.8); Alpha 1 Globulin 0.3 g/dL (0.2-0.3); Alpha 2 Globulin 0.8 g/dL (0.5-0.9); Beta 1 Globulin 0.4 g/dL (0.4-0.6); Gamma Globulin 0.9 g/dL (0.8-1.7); Protein, Total 6.4 g/dL (6.1-8.1)
[2021-11-11 22:18] LABS: Beta-2-Microglobulin 2.85 mg/L (<=2.51)
== END 2021-11-07 11:46 | disposition home or self-care (01) ==
PROVIDERS: PCP Internal Medicine; Visit Provider Internal Medicine Hematology & Oncology
DX: D47.2 Monoclonal gammopathy (principal)
CPT/HCPCS: 36415; 80053; 82232; 82784; 83883; 84155; 84165; 85025

== ENCOUNTER 2021-12-01 08:15 | Outpatient (CLI) | payer OTHER, MEDICARE, SELFPAY ==
--- NOTE | ~2021-12-01 | CT_ITS ---
EXAMINATION: CT lung screening EXAM DATE: 12/01/2021 08:40 INDICATION: Z87.891 - Personal history of nicotine dependence . TECHNIQUE: Spiral low dose CT of the chest without contrast. Axial, coronal and sagittal images were reviewed. The dose-length product (DLP) for this examination was 369.82 mGy-cm. The exposure was t ailored according to patient size (auto mA exposure control), and iterative reconstruction (ASIR) was used as additional dose reduction technique. Comparison is made to prior examination from 09/19/2021, 07/29/2017. FINDINGS: There is pleural placed right lower lobe nodule along the major fissure measuring [address] rage dimension unchanged. Previously seen groundglass airspace disease has resolved. Mild emphysema. Tracheobronchial tree is patent. There is no mediastinal, hilar or axillary lymphadenopathy. The re are no pleural or pericardial effusions. There is no pneumothorax. Heart normal in size. The re is minimal coronary arterial calcification, arterial sclerosis. Gastric bypass. Left adrenal gland lesion measuring 2.0 cm. this does not appear significantly change d compared to a CT from 2017 consistent with benign histology. There is mild thoracic spondylosis wit hout osteoblastic or osteolytic lesions identified. Enlarged right thyroid lobe probably from focal nodule. IMPRESSION: 1. Lung-RADS category 2S, benign appearance or behavior (<1% chance of malignancy); recommend contin ued LDCT screening in 1 year. 2. Enlarged right thyroid lobe could be from focal nodule; consider ultrasound for risk stratificati on. Reviewed, dictated and finalized at location B. IMPRESSION: 1. Lung-RADS category 2S, benign appearance or behavior (<1% chance of maligna ncy); recommend continued LDCT screening in 1 year. 2. Enlarged right thyroid lobe could be from focal nodule; consider ultrasound for risk stratification.
== END 2021-12-01 08:16 | disposition home or self-care (01) ==
PROVIDERS: PCP Internal Medicine; Visit Provider Physician Assistant
DX: Z87.891 Personal history of nicotine dependence (principal)
CPT/HCPCS: 71271

== ENCOUNTER 2021-12-24 07:28 | Outpatient (CLI) | payer OTHER, MEDICARE, SELFPAY ==
--- NOTE | ~2021-12-24 | US_ITS ---
EXAMINATION: US thyroid DATE: 12/24/2021 08:39 INDICATION: Nontoxic goiter. TECHNIQUE: Multiple ultrasound images of the thyroid were obtained. COMPARISON: None. FINDINGS: The right thyroid lobe measures 5.8 x 2.8 x 2.7 cm. The left thyroid lobe measures 5.0 x 1.7 x 1.6 c m. The thyroid demonstrates diffusely heterogeneous echogenicity. Vascularity is increased. In the r ight thyroid lobe, there is a 2.7 cm solid, isoechoic, [id number] nodule with ill-defined margin without echogenic foci (TI-RADS TR3). IMPRESSION: 1. Right thyroid nodule. Ultrasound-guided fine-needle aspiration is recommended. 2. Heterogeneous, hypervascular thyroid, likely chronic lymphocytic (Marixa) thyroiditis. Reviewed, dictated and finalized at location B. IMPRESSION: 1. Right thyroid nodule. Ultrasound-guided fine-needle aspiration is recommende d. 2. Heterogeneous, hypervascular thyroid, likely chronic lymphocytic (Marixa) thyroiditis.
== END 2021-12-24 07:29 | disposition home or self-care (01) ==
LOC: ANHIMG 07:32
PROVIDERS: PCP Internal Medicine; Visit Provider Nurse Practitioner Family
DX: E04.9 Nontoxic goiter, unspecified (principal)
CPT/HCPCS: 76536

== ENCOUNTER 2022-02-04 09:11 | Outpatient (CLI) | payer OTHER, MEDICARE, SELFPAY ==
--- NOTE | ~2022-02-04 | US_ITS ---
EXAMINATION: US FNA w image guidance DATE: 02/04/2022 10:43 INDICATION: Right thyroid nodule TECHNIQUE: A time-out was performed to verify the patient's name, date of , and procedure to be performed . The procedure and its benefits and risks were discussed with the patient. Risks specifically discus sed included bleeding and infection. The patient understood the risks and agreed to proceed. The neck was prepped and draped in the usual sterile manner. 3 mL 1% lidocaine was used for local anesthesia . 6 passes were made with a 25G needle into the lesion. Appropriate needle location was documented with continuous sonographic guidance. A sterile bandage was applied. There were no immediate compli cations. FINDINGS: Grayscale ultrasound images demonstrate biopsy needles advanced into a 2.8 cm heterogeneously solid T I RADS 3 nodule in the right thyroid. IMPRESSION: 1. Successful ultrasound-guided fine needle aspiration of a 2.8 cm TI RADS 3 right thyroid nodule. Reviewed, dictated and finalized at location A. IMPRESSION: 1. Successful ultrasound-guided fine needle aspiration of a 2.8 cm TI RADS 3 r ight thyroid nodule.
== END 2022-02-04 09:12 | disposition home or self-care (01) ==
PROVIDERS: PCP Internal Medicine; Visit Provider Nurse Practitioner Family
DX: E04.1 Nontoxic single thyroid nodule (principal)
CPT/HCPCS: 10005; 88173; 88305

== ENCOUNTER 2022-02-13 07:24 | Outpatient (CLI) | payer OTHER, MEDICARE, SELFPAY ==
--- NOTE | 2022-03-10 12:55 | WPDSLEEPSTUD ---
Sleep Study Date of Study: 02/13/22 Ordering Provider: Isidra Cannon MD Interpreting Physician: Jasmine Trinh DO Sleep Study Type: BiPAP Titration Height: 1.63 m Weight: 124.738 kg Body Mass Index: 47.2 Neck Circumference (inches): 17.5 Mart: 8 Reason for Sleep Study Known SIMEON. On CPAP 12 cm H2O with 4 lpm of O2. Lost weight and had some health changes. Sleep History The patient is a 66-year-old female with anxiety, bipolar 1 disorder, brain tumor, depression, GERD, hypertension, morbid obesity, SIMEON on CPAP with oxygen and history of tobacco abuse that had a sleep study ordered by her branding specialist for re-evaluation of sleep apnea. The patient rarely awakens from sleep short of breath. She occasionally awakens at night with heartburn, belching or cough. She rarely snores and it is never loud enough that others complain. She frequently has trouble sleeping when she has a cold. She occasionally wakes up gasping for air throughout the night. She occasionally has breathing problems at night observed by herself or others. She denies sweating excessively at night. She denies having heart palpitations or irregular heartbeats during the night. She frequently falls asleep during the day but never while driving. She rarely experiences loss of muscle tone when extremely emotional. She denies having trouble at school or work due to sleepiness. He denies sleep paralysis and hypnagogic/ hypnopompic hallucinations. She denies feeling afraid of going to sleep. She denies having nightmares but will occasionally remember her dreams. She denies having racing thoughts through her mind. She constantly feels sad, depressed and anxious. She occasionally has muscular tension. She frequently notices parts of her body jerk. She rarely kicks during the night. She denies having crawling and aching feelings in her legs as well as leg pain during the night. She occasionally grinds her teeth but will frequently awaken child. She is frequently bothered by pain during the day and occasionally awakened by pain during the night. She constantly wakes up feeling stiff in the morning. She constantly wakes up with sore or achy muscles. She denies waking up with pain in the neck, spine and other joints. The patient goes to bed at 10:00 p.m. on both weekdays and weekends. She is able to fall asleep within 15 minutes. She wakes up twice throughout the night to use the restroom and then she will watch television. She will stay awake for 2-3 hours. She wakes up at 6:00 a.m. on both weekdays and weekends. He typically gets 4 hours of sleep per night. She will stay in bed for 4 hours after waking up in the morning. She is currently living with her . She denies consuming any caffeinated beverages within 2 hours of bedtime. She does not engage in physical exercise before bedtime. She will watch television before falling asleep. She will take naps in the afternoon or the evening but they are not refreshing. She drinks 60 oz of caffeinated beverages per day. She quit smoking 7 years ago. She denies alcohol and recreational drug use. [facility] Past Medical History Medical History (Updated 03/10/22 @ 13:11 by Jasmine Trinh DO) Anxiety Bipolar 1 disorder Body mass index (BMI) of 40.1-44.9 in adult Brain tumor Decreased diffusion capacity Depression Distal radius fracture, left July 2020 Exercise hypoxemia Fracture of left upper extremity GERD (gastroesophageal reflux disease) History of tobacco abuse HTN (hypertension) Morbid obesity with BMI of 45.0-49.9, adult Nocturnal oxygen desaturation Obstructive sleep apnea on CPAP SIMEON (obstructive sleep apnea) With CPAP use Shortness of Breath Surgical History Surgical History Fracture of right distal radius Surgical repair on February 02, 2020 H/O gastric bypass H/O spinal fusion L4 through S1 2010 History of bladder suspen
[2022-03-10 23:37] VITALS: BMI 47.2
== END 2022-02-14 06:19 | disposition home or self-care (01) ==
LOC: ANHCSM 07:29
PROVIDERS: PCP Internal Medicine; Visit Provider Internal Medicine Critical Care Medicine
DX: G47.33 Obstructive sleep apnea (adult) (pediatric) (principal); Z99.89 Dependence on other enabling machines and devices
CPT/HCPCS: 95811

== ENCOUNTER 2022-06-10 10:32 | Outpatient (CLI) | payer OTHER, MEDICARE, SELFPAY ==
--- NOTE | ~2022-06-10 | US_ITS ---
EXAMINATION: US FNA w image guidance DATE: 06/10/2022 11:30 INDICATION: 2.8 cm right thyroid nodule TECHNIQUE: A time-out was performed to verify the patient's name, date of , and procedure to be performed . The procedure and its benefits and risks were discussed with the patient. Risks specifically discus sed included bleeding and infection. The patient understood the risks and agreed to proceed. The neck was prepped and draped in the usual sterile manner. 4 mL 1% lidocaine was used for local anesthesia . 6 passes were made with a 25G needle into the lesion. Appropriate needle location was documented with continuous sonographic guidance. A sterile bandage was applied. There were no immediate compli cations. FINDINGS: Grayscale ultrasound images demonstrate biopsy needles advanced into the 2.8 cm solid right thyroid n odule of concern. IMPRESSION: 1. Successful ultrasound-guided fine needle aspiration of the 2.8 cm solid right thyroid nodule of c oncern. Reviewed, dictated and finalized at location A. IMPRESSION: 1. Successful ultrasound-guided fine needle aspiration of the 2.8 cm solid rig ht thyroid nodule of concern.
== END 2022-06-10 10:33 | disposition home or self-care (01) ==
PROVIDERS: PCP Internal Medicine; Visit Provider Internal Medicine Endocrinology, Diabetes & Metabolism
DX: E04.1 Nontoxic single thyroid nodule (principal)
CPT/HCPCS: 10005; 88173; 88305

== ENCOUNTER 2022-12-02 12:51 | Outpatient (CLI) | payer OTHER, MEDICARE, SELFPAY ==
--- NOTE | ~2022-12-02 | CT_ITS ---
EXAMINATION: CT lung screening DATE: 12/02/2022 13:19 INDICATION: Lung cancer screening TECHNIQUE: Computed tomography (CT) of the chest was performed without intravenous contrast. The dose -length product was 253.88 mGy-cm.. Automated exposure control and iterative reconstruction technique were employed. COMPARISON: CT dated 12/01/2021 FINDINGS: Heart size upper normal. No significant pleural or pericardial effusion. No thoracic lympha denopathy. There are changes of gastric bypass surgery. Stable 3 mm fissural nodule on the right. The re is a 3 mm left fissural nodule, image 56. No endobronchial lesions. No focal airspace consolidatio n. No new pulmonary nodules or masses. Mild thoracic spondylosis. IMPRESSION: 1. Lung-RADS category 2: Benign appearance or behavior. Continue annual screening with noncontrast lo w-dose chest CT in 12 months. Reviewed, dictated and finalized at location B. IMPRESSION: 1. Lung-RADS category 2: Benign appearance or behavior. Continue annual screeni ng with noncontrast low-dose chest CT in 12 months.
== END 2022-12-02 12:52 | disposition home or self-care (01) ==
PROVIDERS: PCP Internal Medicine; Visit Provider Physician Assistant
DX: Z12.2 Encounter for screening for malignant neoplasm of respiratory organs (principal); Z87.891 Personal history of nicotine dependence
CPT/HCPCS: 71271

== ENCOUNTER 2023-04-16 11:18 | Outpatient (CLI) | payer OTHER, MEDICARE, SELFPAY ==
--- NOTE | ~2023-04-16 | US_ITS ---
EXAMINATION: US thyroid DATE: 04/16/2023 13:21 INDICATION: Nontoxic single thyroid nodule TECHNIQUE: Multiple ultrasound images of the thyroid were obtained. COMPARISON: 12/24/2021 FINDINGS: The right thyroid lobe measures 4.8 x 2.6 x 2.4 cm. The left thyroid lobe measures 4.3 x 1.5 x 1.8 c m. The thyroid isthmus measures 7 mm in thickness. No significant interval change in a 2.5 cm wider t ellington tall solid isoechoic nodule with smooth margins and without internal echogenic foci (TI-RADS 3, m ildly suspicious , FNA if >=2.5 cm, annual followup is >=1.5 cm). IMPRESSION: 1. No significant change in a 2.5 cm TI RADS 3 right thyroid nodule which is at borderline size crite berhane for ultrasound-guided biopsy. Given the greater than one year of stability however could also con hunter guide continued annual follow-up. Reviewed, dictated and finalized at location A. IMPRESSION: 1. No significant change in a 2.5 cm TI RADS 3 right thyroid nodule which is at borderline size criteria for ultrasound-guided biopsy. Given the greater than one year of stability however could also consider continued annual follow-up.
== END 2023-04-16 11:19 | disposition home or self-care (01) ==
PROVIDERS: PCP Internal Medicine; Visit Provider Internal Medicine Endocrinology, Diabetes & Metabolism
DX: E04.1 Nontoxic single thyroid nodule (principal)
CPT/HCPCS: 76536

== ENCOUNTER 2023-05-06 08:40 | Outpatient (CLI) | payer OTHER, MEDICARE, SELFPAY ==
[2023-05-06 11:38] LABS: Basophils Absolute Auto 0.1 K/mm3 (0.0-0.1); Basophils Percent Auto 0.7 % (0.2-1.2); Eosinophils Absolute Auto 0.2 K/mm3 (0-0.3); Eosinophils Percent Auto 2.1 % (0-4.4); Hematocrit 47.6 % (37.0-47.0); Hemoglobin 14.9 g/dL (12.0-15.0); Immature Granulocyte Absolute 0.08 K/mm3 (0.00-0.031); Immature Granulocyte Percent A 0.8 % (0-0.5); Lymphocytes Absolute Auto 1.97 K/mm3 (0.9-3.2); Lymphocytes Percent Auto 20.1 % (18.3-44.2); Mean Corpuscular HGB Conc 31.3 g/dl (32-36); Mean Corpuscular Hemoglobin 31.2 pg (26-34); Mean Corpuscular Volume 99.6 fl (80-100); Mean Platelet Volume 9.1 fl (7.4-10.4); Monocytes Absolute Auto 0.9 K/mm3 (0.1-0.6); Monocytes Percent Auto 8.7 % (2.6-8.5); Neutrophils Absolute Auto 6.6 K/mm3 (1.3-6.7); Neutrophils Percent Auto 67.6 % (45.5-73.1); Platelet Count Result 253 k/mm3 (150-375); Red Blood Count 4.78 M/mm3 (4.2-5.4); Red Cell Distribution Width 14.2 % (11.5-14.5); White Blood Count 9.8 K/mm3 (4.5-10.0)
[2023-05-06 11:58] LABS: Alanine Aminotransferase 26 U/L (6-35); Albumin Level 3.8 g/dL (3.5-5.1); Alkaline Phosphatase 71 U/L (38-126); Anion Gap 6 mmol/L (8-16); Aspartate Amino Transferase 41 U/L (14-36); Bilirubin,Total 0.5 mg/dL (0.2-1.3); Blood Urea Nitrogen 12 mg/dL (7-17); Calcium 8.7 mg/dL (8.4-10.2); Carbon Dioxide 33 mmol/L (22-30); Chloride 103 mmol/L (98-107); Estimated Glomerular Filt Rate 55; Glucose 111 mg/dL (65-110); Sodium 142 mmol/L (137-145)
== END 2023-05-06 08:41 | disposition home or self-care (01) ==
PROVIDERS: PCP Internal Medicine; Visit Provider Clinical Nurse Specialist
DX: R60.0 Localized edema (principal)
CPT/HCPCS: 36415; 80053; 85025

== ENCOUNTER 2023-05-06 09:16 | Outpatient (CLI) | payer OTHER, MEDICARE, SELFPAY ==
--- NOTE | ~2023-05-06 | XR_ITS ---
Thoracic spine: Clinical Indication: Back pain AP and lateral views were performed. No fracture is seen. There is normal alignment of the vertebrae. The intervertebral disc spaces appe ar normal. Paravertebral soft tissues appear normal. Impression: No significant abnormalities noted. Reviewed, dictated and finalized at [facility]. Impression: No significant abnormalities noted.
--- NOTE | ~2023-05-06 | XR_ITS ---
Lumbosacral Spine: AP and lateral views Clinical History: Pain Findings: The normal lordotic curve is maintained. There is posterior and interbody fusion from L4 th rough S1. There is moderate facet arthropathy at L2-L3 and L3-L4. There is moderate degenerative disc narrowing at L2-L3 and L3-L4. The sacroiliac joints are normally outlined. Impression: Posterior and interbody fusion from L4 through S1. Moderate degenerative spondylosis at L2-L3 and L3-L4, as detailed above. Reviewed, dictated and finalized at location M. Impression: Posterior and interbody fusion from L4 through S1. Moderate degenerative spondylosis at L2-L3 and L3-L4, as detailed above.
== END 2023-05-06 09:17 | disposition home or self-care (01) ==
LOC: ANHIMG 09:19
PROVIDERS: PCP Internal Medicine; Visit Provider Clinical Nurse Specialist
DX: M47.896 Other spondylosis, lumbar region (principal)
CPT/HCPCS: 72070; 72100

== ENCOUNTER 2023-07-09 07:57 | Outpatient (CLI) | payer OTHER, MEDICARE, SELFPAY ==
--- NOTE | 2023-07-09 14:38 | WPDSIXMINUTE ---
Six Minute Walk Procedure Procedure Performed Pulmonary Stress Test (6 min walk) Six Minute Walk Six Minute Walk: This is a 6 minute walk test. The test was performed and interpreted in accordance with the 2014 ERS/ATS task force guidelines. Of note, the patient used a wheeled walker and she stopped walking at 5 minutes due to leg pain and shortness of breath. Findings: The patient's resting room air oxygen saturation measured by pulse oximetry was 93% and heart rate was 74 bpm. Patient ambulated for 122 meters and oxygen saturation remained 91 to 94%. Heart rate at the end of the study was 82 bpm. The patient did not qualify for supplemental oxygen at rest or with ambulation. There are no prior studies for comparison.
== END 2023-07-09 07:58 | disposition home or self-care (01) ==
LOC: ANHPFT 07:57
PROVIDERS: PCP Internal Medicine; Visit Provider Physician Assistant
DX: R06.02 Shortness of breath (principal)
CPT/HCPCS: 36600; 94618

== ENCOUNTER 2023-07-28 13:04 | Outpatient (CLI) | payer OTHER, MEDICARE, SELFPAY ==
[2023-07-28 13:23] LABS: Basophils Absolute Auto 0.1 K/mm3 (0.0-0.1); Basophils Percent Auto 0.6 % (0.2-1.2); Eosinophils Absolute Auto 0.2 K/mm3 (0-0.3); Eosinophils Percent Auto 2.1 % (0-4.4); Hematocrit 46.7 % (37.0-47.0); Hemoglobin 15.3 g/dL (12.0-15.0); Immature Granulocyte Absolute 0.07 K/mm3 (0.00-0.031); Immature Granulocyte Percent A 0.7 % (0-0.5); Lymphocytes Absolute Auto 1.79 K/mm3 (0.9-3.2); Lymphocytes Percent Auto 18.6 % (18.3-44.2); Mean Corpuscular HGB Conc 32.8 g/dl (32-36); Mean Corpuscular Hemoglobin 31.3 pg (26-34); Mean Corpuscular Volume 95.5 fl (80-100); Mean Platelet Volume 8.5 fl (7.4-10.4); Monocytes Absolute Auto 0.8 K/mm3 (0.1-0.6); Monocytes Percent Auto 7.8 % (2.6-8.5); Neutrophils Absolute Auto 6.8 K/mm3 (1.3-6.7); Neutrophils Percent Auto 70.2 % (45.5-73.1); Platelet Count Result 229 k/mm3 (150-375); Red Blood Count 4.89 M/mm3 (4.2-5.4); Red Cell Distribution Width 13.3 % (11.5-14.5); White Blood Count 9.6 K/mm3 (4.5-10.0)
[2023-07-28 13:29] LABS: Blood Urea Nitrogen 15 mg/dL (8-26); Carbon Dioxide 30 mmol/L (22-30); Chloride 99 mmol/L (98-109); Estimated Glomerular Filt Rate 35; Glucose 123 mg/dL (70-105); Ionized Calcium (POC) 1.11 mmol/L (1.11-1.31); Potassium 3.5 mmol/L (3.5-4.9); Sodium 141 mmol/L (138-146)
[2023-07-28 16:55] LABS: Alanine Aminotransferase 33 U/L (6-35); Albumin Level 4.2 g/dL (3.5-5.1); Alkaline Phosphatase 65 U/L (38-126); Anion Gap 10 mmol/L (8-16); Aspartate Amino Transferase 42 U/L (14-36); Bilirubin,Total 0.6 mg/dL (0.2-1.3); Blood Urea Nitrogen 15 mg/dL (7-17); Calcium 9.2 mg/dL (8.4-10.2); Carbon Dioxide 27 mmol/L (22-30); Chloride 100 mmol/L (98-107); Estimated Glomerular Filt Rate 41; Glucose 118 mg/dL (65-110); Potassium 3.6 mmol/L (3.4-5.0); Sodium 137 mmol/L (137-145)
== END 2023-07-28 13:05 | disposition home or self-care (01) ==
PROVIDERS: PCP Internal Medicine; Visit Provider Internal Medicine Hematology & Oncology
DX: D47.2 Monoclonal gammopathy (principal)
CPT/HCPCS: 36415; 80047; 80053; 85025

== ENCOUNTER 2023-09-14 12:49 | Outpatient (CLI) | payer OTHER, MEDICARE, SELFPAY ==
--- NOTE | 2023-09-14 12:57 | ECG_ITS ---
Measurements Intervals [place] Rate: 74 P: 5 [place]: 139 QRS: 3 QRSD: 92 T: 36 QT: 395 QTc: 441 Interpretive Statements SINUS RHYTHM BASELINE ARTIFACT- I, II, III, AVR, AVL, AVF NORMAL ECG COMPARED TO ECG 10/29/2021 10:24:48 NO SIGNIFICANT CHANGES Electronically Signed On 09-14-2023 13:29:54 LETTER OF CREDIT DOCUMENT EXAMINER by Maurice Hall D.O.
[2023-09-14 13:39] LABS: INR 0.9; Partial Thromboplastin Time 24.8 SECONDS (22.3-36.8); Prothrombin Time 12.4 Seconds (11.1-14.7)
== END 2023-09-14 12:50 | disposition home or self-care (01) ==
PROVIDERS: Anesthesiology; PCP Internal Medicine; Visit Provider Urology
DX: I12.9 Hypertensive chronic kidney disease with stage 1 through stage 4 chronic kidney disease, or unspecified chronic kidney disease (principal); N18.9 Chronic kidney disease, unspecified; Z01.818 Encounter for other preprocedural examination
CPT/HCPCS: 36415; 85610; 85730; 93005

== ENCOUNTER 2023-09-17 01:02 | Day surgery (SDC) | payer OTHER, MEDICARE, SELFPAY ==
[2023-09-08 13:47] VITALS: BMI 48.0
--- NOTE | 2023-09-08 14:19 | PC.NURSE ---
Report to the Outpatient Waiting Room, entrance under the green pavilion located off [facility], at time __7:45AM on date __09/17/23 . Planned Procedure Time: _9:45AM . Time changes happen often and if your time is changed the preop area will call you the afternoon before. - You and your visitor will be asked to self-screen and do not enter if you have any COVID symptoms. - A mask is optional within the hospital at this time. Patients may have clear liquids (water, carbonated beverages, clear teas, apple juice) until 3 hours prior to surgery with a maximum of 20 ounces. - No food from midnight until time of surgery. Take the following medications with a SIP of water the morning of surgery: _AMLODIPINE, CARVEDILOL, DULOXETINE, LAMOTRIGINE, LORAZEPAM, SERTRALINE. ALBUTEROL INHALER NEEDED. DO NOT STOP ANY OF YOUR OTHER PRESCRIPTION MEDICATIONS PRIOR TO SURGERY ?EXCEPT THE FOLLOWING Medications to discontinue per physician ___HOLD ASPIRIN PER DR BUTLER. HOLD ALL VITAMINS/SUPPLEMENTS 3 DAYS PRE-OP PER ANESTHESIA- LAST DOSE 09/13/23. Please no make-up, nail chinese, hairspray, perfume, deodorant, or body powder the day of surgery. No jewelry (including any body piercings) or valuables the day of surgery, leave them at home. Please take a shower or bath the night before, or the morning of, surgery with an antibacterial soap. Wear comfortable, loose fitting clothing. Children are encouraged to wear pajamas. - Jewelry must be removed prior to entering the operating room. Rings and piercings that are not removed may be cut off. - The hospital will not accept responsibility for valuables. - Please leave all valuables, including medications, at home the day of surgery. If you are going home after surgery, a licensed refuse driver must drive you home. - NO public transportation without another adult if you receive anesthesia. - We recommend that an adult stay with you for 24 hours following discharge. - We also recommend that you do not drive, make important decision, drink alcoholic beverages, or take any drugs that were not prescribed by your health care provider for at least 24 hours after your discharge time. Follow any additional instructions given to you from your surgeon. If you or anyone in your household have experienced Covid symptoms in the past week, please notify your surgeon or the nurse liaison at the phone number below for possible testing. Telephone instructions given to __PATIENT and asked if any additional questions and then verbalized understanding. Patient advised to call surgeon office or pre surgery nurse liaison [phone] if any additional questions.
--- NOTE | 2023-09-16 07:47 | PM.IMHP ---
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 She has had a sling in the past by another physician. I did a bulking agent nearly 2 years ago. She presents today for repeat bulking agent Review of Systems Review of Systems: All systems reviewed & are unremarkable except as noted in HPI and below PMFSH Past Medical History Medical History Anxiety Bipolar 1 disorder Body mass index (BMI) of 40.1-44.9 in adult Brain tumor Decreased diffusion capacity Depression Distal radius fracture, left July 2020 Dysuria Exercise hypoxemia Fracture of left upper extremity GERD (gastroesophageal reflux disease) History of tobacco abuse HTN (hypertension) Morbid obesity with BMI of 45.0-49.9, adult Nocturnal oxygen desaturation Obstructive sleep apnea on CPAP SIMEON (obstructive sleep apnea) With CPAP use Shortness of Breath Surgical History Surgical History Fracture of right distal radius Surgical repair on February 02, 2020 H/O gastric bypass H/O spinal fusion L4 through S1 2010 History of bladder suspension procedure March 2017 History of brain surgery Patient reports brain tumor was removed in the 1995 benign Pineal cystoma History of cholecystectomy History of total left knee replacement October 2012 Hx of tonsillectomy Family History Family History Mother Hypertension Diabetes mellitus Cerebrovascular accident Father Carcinoma of colon Sibling Multiple sclerosis Social History Social History Social History: The patient lives with her . She has 3 children. She is disabled. She quit smoking 5 years ago. The patient denies any marijuana alcohol or illicit drugs. Her is a durable power commercial real estate attorney for healthcare. Primary care physician: Dr. Yannick Umanzor Code status: Full code Smoking packs per day: 1 Smoking cigarettes per day: 20.0 Years smoked: 40 Smoking pack-years: 40.00 Smoking status: Former smoker Tobacco type: cigarettes Second hand tobacco smoke exposure: No Smoking end date: 08/23/14 Alcohol intake: never Substance use: never Substance use type: does not use Lack of Transportation: No Lack of Food: Never True Current Housing: I Have Housing Concerned About Future Housing: No Difficulty Paying Gas/Electric Bills: No Difficulty Paying for Meds: No Currently Unemployed: No Education: Associate Degree Difficulty w/ Childcare or Family Care: No Living arrangements: with family Additional living arrangements comments: [place] Occupation/Education: retired Additional occupation/education comments: 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 Gender identity (if verbalized by the patient): Female Spiritual care concerns: No Meds Home Medications and Allergies Home Medications Medication Instructions Recorded Confirmed Type aripiprazole 2 mg tablet (Abilify) 30 mg PO QPM 01/30/20 09/08/23 History duloxetine 60 mg capsule,delayed 60 mg PO BID 01/21/21 09/08/23 History release (Cymbalta) cholecalciferol (vitamin D3) 250 250 mcg PO DAILY 01/02/22 09/08/23 History mcg (10,000 unit) capsule trazodone 100 mg tablet 200 mg PO QHS PRN Insomnia 01/02/22 09/08/23 History Overnight Ox #1 ea 05/13/22 06/30/23 Rx albuterol sulfate 90 mcg/actuation 1 - 2 puff inhalation Q4-6H PRN 02/08/23 09/08/23 Rx aerosol inhaler shortness of breath or wheezing #8.5 grams amlodipine 5 mg tablet 5 mg PO HS 09/08/23 09/08/23 History ascorbic acid (vitamin C) 1,000 mg 2 g PO DAILY 09/08/23 09/08/23 History chewable tablet aspirin 81 mg tablet,delayed 81 mg PO DAILY 09/08/23 09/08/23 History
--- NOTE | 2023-09-17 07:11 | WPDHPUPDATE1 ---
History and Physical Update Update Date/Time: 09/17/23 07:11 History and Physical has been reviewed, including an updated exam of the patient. There are NO changes in the patient's condition. Risks, benefits, and alternatives have been discussed and questions answered. Patient agrees to proceed with procedure.
[2023-09-17 07:17] VITALS: BP 159/82; PULSE 89; RESP 20; TEMP 37; O2SAT 96
--- NOTE | 2023-09-17 07:35 | SUR.PREOP ---
Examined patient and decided to call [facility] surgical tech access for IV.
[2023-09-17] MEDS: LACTATED RINGERS 1,000 ML 30 ML IV CONT (08:12)
--- NOTE | 2023-09-17 08:22 | WPDANESEPPF ---
Anes - Initial Pre Proc Eval Procedure: Operation Date: 09/17/23 09:00 Proposed Procedures p Cystoscopy, Injection Bulking Agent - Domingo Krishnamurthy MD Date/Time: 09/17/23 08:22 Surgeon: Domingo Krishnamurthy MD Pre Op Diagnosis: Intrinsic Sphincter Deficiency Patient Data Age: 68 Gender: F Height: 1.63 m Weight: 126.4 kg Last Vital Signs Temp 37.0 C 09/17/23 07:17 Pulse 89 09/17/23 07:17 Resp 20 09/17/23 07:17 BP 159/82 H 09/17/23 07:17 Pulse Ox 96 09/17/23 07:17 O2 Del Method Room Air 09/17/23 07:17 Allergies Allergy/AdvReac Type Severity Reaction Status Date / Time acyclovir [From Zovirax] Allergy Severe Hives Verified 09/17/23 07:11 omeprazole [From Prilosec] AdvReac Intermediate hyperventil Verified 09/17/23 07:11 ate Home Medications Medication Instructions Recorded Confirmed Type aripiprazole 2 mg tablet (Abilify) 30 mg PO QPM 01/30/20 09/08/23 History duloxetine 60 mg capsule,delayed 60 mg PO BID 01/21/21 09/08/23 History release (Cymbalta) cholecalciferol (vitamin D3) 250 250 mcg PO DAILY 01/02/22 09/08/23 History mcg (10,000 unit) capsule trazodone 100 mg tablet 200 mg PO QHS PRN Insomnia 01/02/22 09/08/23 History Overnight Ox #1 ea 05/13/22 06/30/23 Rx albuterol sulfate 90 mcg/actuation 1 - 2 puff inhalation Q4-6H PRN 02/08/23 09/08/23 Rx aerosol inhaler shortness of breath or wheezing #8.5 grams amlodipine 5 mg tablet 5 mg PO HS 09/08/23 09/08/23 History ascorbic acid (vitamin C) 1,000 mg 2 g PO DAILY 09/08/23 09/08/23 History chewable tablet aspirin 81 mg tablet,delayed 81 mg PO DAILY 09/08/23 09/08/23 History release bupropion HCl 150 mg 24 hr tablet, 150 mg PO HS 09/08/23 09/08/23 History extended release carvedilol 12.5 mg tablet 12.5 mg PO BID 09/08/23 09/08/23 History ferrous sulfate 325 mg (65 mg 325 mg PO DAILY 09/08/23 09/08/23 History iron) tablet hydrochlorothiazide 12.5 mg tablet 12.5 mg PO QAM 09/08/23 09/08/23 History lamotrigine 200 mg tablet 200 mg PO BID 09/08/23 09/08/23 History lorazepam 2 mg tablet 2 mg PO TID 09/08/23 09/08/23 History oxybutynin chloride 10 mg 10 mg PO DAILY 09/08/23 09/08/23 History tablet,extended release 24 hr pantoprazole 40 mg tablet,delayed 40 mg PO DAILY 09/08/23 09/08/23 History release sertraline 100 mg tablet 100 mg PO BID 09/08/23 09/08/23 History vitamin B complex 2 tablet PO DAILY 09/08/23 09/08/23 History Patient hx anesthesia problems: none Family hx anesthesia problems: none Results Review: All pre-operative results and documents have been reviewed as part of the pre-operative evaluation. [facility] Past Medical History Medical History Anxiety Bipolar 1 disorder Body mass index (BMI) of 40.1-44.9 in adult Brain tumor Decreased diffusion capacity Depression Distal radius fracture, left July 2020 Dysuria Exercise hypoxemia Fracture of left upper extremity GERD (gastroesophageal reflux disease) History of tobacco abuse HTN (hypertension) Morbid obesity with BMI of 45.0-49.9, adult Nocturnal oxygen desaturation Obstructive sleep apnea on CPAP SIMEON (obstructive sleep apnea) With CPAP use Shortness of Breath Surgical History Surgical History Fracture of right distal radius Surgical repair on February 02, 2020 H/O gastric bypass H/O spinal fusion L4 through S1 2010 History of bladder suspension procedure March 2017 History of brain surgery Patient reports brain tumor was removed in the 1995 benign Pineal cystoma History of cholecystectomy History of total left knee replacement October 2012 Hx of tonsillectomy Family History Family History Mother Hypertension Diabetes mellitus Cerebrovascular accident Father Carcinoma of colon Sibling Multiple sclerosis Social History Social History (Re
[2023-09-17] MEDS: ceFAZolin 3 GM/D5W 100 ML 100 ML IVPB (08:51)
[2023-09-17 09:15] VITALS: BP 145/75; PULSE 86; RESP 16; O2SAT 100
[2023-09-17 09:23] LABS: Glucose Point of Care 133 mg/dl (65-105)
--- NOTE | 2023-09-17 09:35 | W.PM.PROC2 ---
Procedure Note - Detailed Date of Procedure 09/17/23 Pre-op Diagnosis Intrinsic Sphincter Deficiency Post-op Diagnosis Same Procedure Performed cystoscopy with suburethral injection of implant material Surgeon Domingo Krishnamurthy MD Anesthesia MAC Indications this is a with intrinsic sphincter deficiency. She has had a previous bulking agent. She is here today for repeat bulking agent. She understands risks of bleeding, infection, lack of efficacy, urinary tension, need for repeat procedures. She agrees to proceed Description of Procedure she was correctly identified. Informed consent obtained. She from the operating room. She was given monitored anesthesia care. She was placed in dorsal lithotomy position. She was prepped and draped in a sterile fashion. She was given appropriate perioperative antibiotics. Time-out performed. I performed cystoscopy. Urethra was consistent with prior bulking agent. Bladder was otherwise normal without tumors or abnormalities. I chose a site in the mid urethra 2 cm distal bladder neck. I injected bulking agent circumferentially. I used 2 syringes total. There was good bulking effect. Her bladder was left partially full. She was awakened transferred to PACU in stable condition. Estimated Blood Loss 1 Complications No immediate complications Condition Stable Disposition PACU
[2023-09-17 09:45] VITALS: BP 142/84; PULSE 76; RESP 16
== END 2023-09-17 10:20 | disposition home or self-care (01) ==
PROVIDERS: PCP Internal Medicine; Visit Provider Urology
PROC: 3E0K8GC Introduction of Other Therapeutic Substance into Genitourinary Tract, Via Natural or Artificial Opening Endoscopic (ICD-10-PCS; CPT 51715; principal; 2023-09-17 09:00)
DX: N36.42 Intrinsic sphincter deficiency (ISD) (principal); F31.9 Bipolar disorder, unspecified; I10 Essential (primary) hypertension; K21.9 Gastro-esophageal reflux disease without esophagitis; F41.9 Anxiety disorder, unspecified; G47.33 Obstructive sleep apnea (adult) (pediatric); E66.01 Morbid (severe) obesity due to excess calories; Z68.42 Body mass index [BMI] 45.0-49.9, adult; Z98.84 Bariatric surgery status; Z98.1 Arthrodesis status; Z87.891 Personal history of nicotine dependence; Z79.82 Long term (current) use of aspirin; Z79.51 Long term (current) use of inhaled steroids
CPT/HCPCS: 51715; 82948; J0690; J2250; J2704; J3010; J7120; L8606

== ENCOUNTER 2023-12-06 10:26 | Outpatient (CLI) | payer OTHER, MEDICARE, SELFPAY ==
--- NOTE | ~2023-12-06 | CT_ITS ---
CT Scan of the Chest without Contrast: Clinical Indication: Lung cancer screening, nicotine dependence Technique: Contiguous sections were acquired throughout the chest without intravenous contrast. Dose reduction technique was used on this scan by utilizing automated exposure control and iterative recon struction technique. The dose-length product (DLP) was 402.30 mGy-cm. Findings: There is no evidence of any significant mediastinal, hilar or axillary lymphadenopathy. The mediastin al soft tissues appear normal. There is no evidence of pleural or pericardial effusion. 3 mm kiana-fissural nodule noted in the right lung (axial image 57). Images through the upper abdomen reveal 1.9 cm left adrenal nodule. There is evidence of prior bariat cristofer surgery. Impression: Lung RADS 2: Benign appearance. 12 month follow-up screening CT advised. 1.9 cm left adrenal nodule. Statistically, this is most likely adenoma. Images from prior exams are n ot available at this time due to technical issues, comparison with images when available is advised t o assure stability of this nodule. Reviewed, dictated and finalized at location . Impression: Lung RADS 2: Benign appearance. 12 month follow-up screening CT advised. 1.9 cm left adrenal nodule. Statistically, this is most likely adenoma. Images from prior exams are not available at this time due to technical issues, compar cal with images when available is advised to assure stability of this nodule.
== END 2023-12-06 10:27 | disposition home or self-care (01) ==
PROVIDERS: PCP Internal Medicine; Visit Provider Physician Assistant
DX: Z12.2 Encounter for screening for malignant neoplasm of respiratory organs (principal); E27.9 Disorder of adrenal gland, unspecified; Z87.891 Personal history of nicotine dependence
CPT/HCPCS: 71271

== ENCOUNTER 2024-03-23 09:20 | Outpatient (CLI) | payer OTHER, MEDICARE, SELFPAY ==
--- NOTE | 2024-03-23 12:43 | WPDPFTINT ---
PFT Procedure Performed PFT Procedure Performed Spirometry with Pre/Post Bronchodilator Plethysmography (Lung Vol) Diffusing Cap (DLCO) Flow Vol Loop PFT Interpretation This is a pulmonary function test with pre and post-bronchodilator spirometry, plethysmography and diffusing capacity. The test was performed and results interpreted in accordance with the 2019 and 2005 ATS/ERS Task Force guidelines respectively using the Global Lung Function Initiative-2012 reference equations. Patient demonstrated good effort and cooperation. Reproducibility criteria were met. The quality of the pre bronchodilator spirometry maneuver was Grade A and post bronchodilator spirometry maneuver was Grade A. Findings: Spirometry: The contour the inspiratory and expiratory flow tracing is normal. The pre bronchodilator FVC is 2.21 L, 75% predicted. The pre bronchodilator FEV1 is 1.82 L, 79% predicted. The pre bronchodilator FEV1: FVC ratio is 82%. The post bronchodilator FVC is 2.16 L, representing a 2% decrease. The post bronchodilator FEV1 is 1.82 L, representing no change. The post bronchodilator FEV1: FVC ratio is 84%. Plethysmography: The total lung capacity is 3.55 L, 70% predicted. The functional residual capacity is 1.30 L, 45% predicted. The residual volume is 1.29 L, 60% predicted. Diffusing capacity: The diffusing capacity unadjusted for hemoglobin and carboxyhemoglobin is 12.7, 61% predicted. The diffusing capacity adjusted for alveolar volume is 4.11, 95% predicted. In comparison to previous pulmonary function testing on 03/19/2021 the post bronchodilator FVC is unchanged from 2.00 L to 2.16 L. The post bronchodilator FEV1 is unchanged from 1.64 L to 1.82 L. The total lung capacity is unchanged from 3.23 L to 3.55 L. The functional residual capacity is unchanged from 1.29 L to 1.30 L. The residual volume is unchanged from 1.22 L to 1.29 L. The diffusing capacity unadjusted for hemoglobin and carboxyhemoglobin is unchanged from 13.4 to 12.7. The diffusing capacity adjusted for alveolar volume is decreased from 5.02 to 4.11. Impression: There is a mild restrictive ventilatory abnormality with a normal FEV1. The spirometry is normal without evidence of an obstructive abnormality. There is no significant improvement after inhaling a single dose of albuterol. The diffusing capacity unadjusted for hemoglobin and carboxyhemoglobin is mildly decreased and normalizes when adjusted for alveolar volume. In comparison to previous pulmonary function testing on 03/19/2021 there has been a greater than anticipated time dependent decrease in the diffusing capacity adjusted for alveolar volume with no significant change in the FVC, FEV1, total lung capacity, functional residual capacity, residual volume, or diffusing capacity unadjusted for hemoglobin and carboxyhemoglobin. Clinical correlation is recommended.
== END 2024-03-23 09:21 | disposition home or self-care (01) ==
LOC: ANHPFT 09:21
PROVIDERS: PCP Internal Medicine; Visit Provider Physician Assistant
DX: R06.02 Shortness of breath (principal); Z87.891 Personal history of nicotine dependence; R94.2 Abnormal results of pulmonary function studies
CPT/HCPCS: 94060; 94726; 94729

== ENCOUNTER 2024-05-12 12:07 | Outpatient (CLI) | payer OTHER, MEDICARE, SELFPAY ==
--- NOTE | ~2024-05-12 | XR_ITS ---
XR knee RT min 4V Ordering provider: Nicky Gu NP History: . M25.561 - Pain in right knee . Comparison: None. FINDINGS: BONES: No acute fracture or dislocation. Osteophyte seen in the proximal tibia medially. Lucency is seen in the osteophyte. Fracture cannot be excluded. Clinical evaluation for tenderness in the area is advised. JOINT SPACES: Severe narrowing of the medial compartment. Marginal osteophytes seen in the knee and p atella. SOFT TISSUES: Normal. IMPRESSION: No definite acute osseous abnormality right knee. Possible fracture or osteophyte medially in the tib ia is not excluded. Clinical correlation advised. Severe osteoarthritic changes. Reviewed, dictated and finalized at location A. IMPRESSION: No definite acute osseous abnormality right knee. Possible fracture or osteophy te medially in the tibia is not excluded. Clinical correlation advised. Severe osteoarthritic changes.
== END 2024-05-12 12:08 | disposition home or self-care (01) ==
PROVIDERS: PCP Nurse Practitioner; Visit Provider Nurse Practitioner
DX: M17.11 Unilateral primary osteoarthritis, right knee (principal)
CPT/HCPCS: 73564

== ENCOUNTER 2024-07-12 08:00 | Outpatient (RCR) | payer OTHER, MEDICARE, SELFPAY ==
--- NOTE | 2024-04-17 11:07 | OPREHPOC ---
Outpatient Therapy Plan of Care This is a Multidisciplinary Plan of Care that may contain components documented by all disciplines (PT, OT, and ST.) PT Problem 1 PT Problem #1 Knowledge Deficit PT Goal 1 Goal / Goal Update *indep with HEP for LE strengthening * compression garments for LE's * education for management of lymphedema Target Visit 15 PT Problem 2 PT Problem #2 Impaired Functional Mobility PT Goal 1 Goal / Goal Update decrease lymphedema of legs to improve mobility 1* sitting knee flexion R 95' 2* sitting knee flexion L 100' 3* supine/sit indep transfer 4* pt report in/out car without assist 50% time Target Visit 15 PT Problem 3 PT Problem #3 Impaired Lymphatic System PT Goal 1 Goal / Goal Update circumferential measurement of LE to 64 cm: 1* R 780 cm 2* L 780 cm no dry, flaking skin over lower legs 3* R 4* L no redness over LE 5* R 6* L visible malleoli 7* R 8* L Target Visit 15
--- NOTE | 2024-04-17 11:08 | PTOPEVAL1 ---
Assessment and note entered by Vale Welch PT Evaluation Information Assessment Status Evaluation Other ICD-10 Condition Codes ( lymphedema of both legs I 89.0 PT) Subjective Information chronic issues with swelling of legs; Activity: use rollator due to knee pain and weakness-- give out; in the past 6 months have had 3-4 falls every month; assists her get up off the floor, crawl to something to pull with her arms; education: correct lift with gait belt on her waist and body mechanics to assist her to stand have 2 entry step from garage- holding onto door frame; discussed use of grab bar on wall for UE support; she does not drive; assist her getting legs in/out car; have SUV and seat is higher; does sponge bathing; was at therapy at another facility---stopped there to start here for her lymphedema; does not do any HEP from there. Reported Pain Level Pain Score 4: Self Report Additional Pain Score Comments legs feel thick; problems moving the legs; knee pain Assessment PT Clinical Summary Leydi has the diagnosis of lymphedema over both legs. She has never had treatment for lymphedema. She is using a rollator and having falls due to leg weakness and knee pain. Her assists with home and mobility for pt. He will have to assist her with donning and doffing LE garments, due to her ability to reach down her legs is to just below her knees. With the evaluation: she has decreased ROM of both knees, with decreased strength of LE's; maximum walking distance of 150' due to fatigue and knee pain; over both legs there are tissue changes, with dry, flaking skin, redness and fibrotic tissue; her abdomen is enlarged with tenderness over R upper quadrant. Skilled PT services are indicated for combination of lymphedema/lipedema treatment: complete decongestive therapy--manual lymph drainage, compression wraps, LE exercises, mobility retraining and education for management of lymphedema and compression garments for her to obtain. Plan of Care Interventions Intermittent Compression pump,Lymphedema Compression Wrap ,Manual Lymph Drainage,Neuro Re-education,Patient/ Caregiver Education,Therapeutic Activities, Therapeutic Exercise PT Services Indicated Yes Treatment Frequency and 3x/wk for 15 visits Duration These treatments will address the objective and functional deficits as defined above. The patient will be advanced safely and appropriately in order for the patient to progress towards his/her prior level of function. Additional exercises will be introduced and as well as a comprehensive home exercise program upon discharge, if needed, ?to ensure carryover of functional gains achieved in the clinic. This treatment plan has been reviewed and agreement upon by the patient.
--- NOTE | 2024-05-03 12:27 | PCPTNOTE ---
pt signed release of info consent. Faxed her info to [facility]huja, for home intermittent compression pump--insurance auth for unit.
--- NOTE | 2024-05-19 09:50 | PCPTNOTE ---
Addendum entered by Vale Welch PT 05/19/24 10:01: this note was for insurance purpose Original Note: PHYSICAL THERAPY PROGRESS REPORT 05-19-24 Mrs. Su has received 4 weeks of lymphedema treatment for bilateral LE and trunk lymphedema. Treatment included multi layer compression wraps, manual lymph drainage, intermittent compression pump on legs at 40 mmHg compression, LE exercises, education for HEP, self massage, compression garments and lymphedema management and skin care. She is compliant with her HEP, elevation of her legs, walking as tolerated--limited to ~ 150' with wheeled walker due to knee pain. Her is assisting her with velcro compression garments for her L LE, because she is not able to reach her feet. With today's treatment: circumferential measurements, up to 64 cm from bottom of her foot, compared to the initial evaluation: R LE has increased by 8.6 cm-- the lower leg numbers have decreased, with knee and thigh numbers increased; L LE has decreased by 23.5 cm; circumferential measurement of trunk has increased from 129 to 135 cm at waist she continues to have edema over dorsum of both feet, lateral malleoli and medial- distal thigh tissue with firmness and lobule at medial knees. She continues to have firmness over abdomen--entire area Treatment is still ongoing for her. Recommend pt use a home intermittent compression pump that includes her trunk and both legs, to assist with managing her lymphedema. Her will assist her with donning/doffing the garment. Vale Welch, PT, CLT
--- NOTE | 2024-06-01 10:42 | PCPTNOTE ---
treatment for 05-31-24 was canceled due to PT illness.
--- NOTE | 2024-06-08 14:50 | OPREHPOC ---
Outpatient Therapy Plan of Care This is a Multidisciplinary Plan of Care that may contain components documented by all disciplines (PT, OT, and ST.) PT Problem 1 PT Problem #1 Knowledge Deficit PT Goal 1 Goal / Goal Update *indep with HEP for LE strengthening * compression garments for LE's * education for management of lymphedema Target Visit 15 Progress Partially Met PT Goal 2 Goal / Goal Update 06-08-24 progress goals partially met continue Target Visit 19 PT Problem 2 PT Problem #2 Impaired Functional Mobil PT Goal 1 Goal / Goal Update decrease lymphedema of legs to improve mobility 1* sitting knee flexion R 95' 2* sitting knee flexion L 100' 3* supine/sit indep transfer 4* pt report in/out car without assist 50% time Target Visit 15 Progress Partially Met PT Goal 2 Goal / Goal Update 06-08-24 progress goal 1,2,4 met PT Problem 3 PT Problem #3 Impaired Lymphatic System PT Goal 1 Goal / Goal Update circumferential measurement of LE to 64 cm: 1* R 780 cm 2* L 780 cm no dry, flaking skin over lower legs 3* R 4* L no redness over LE 5* R 6* L visible malleoli 7* R 8* L Target Visit 15 Progress Partially Met PT Goal 2 Goal / Goal Update 06-08-24 progress goal 2,3,4,7,8 continue towards other goals Target Visit 19
--- NOTE | 2024-06-08 14:50 | PTOPPROG ---
Assessment and note entered by Vale Welch, PT Progress Report Assessment Status Progress Other ICD-10 Condition Codes ( lymphedema of both legs I 89.0 PT) Subjective Information legs are doing much better, still have some swelling in L foot that changes/ R foot is good; have been using the velcro garment on L leg and they are comfortable; have been doing the leg exercises, self massage and walking as much as I can; no falls in the past 3 weeks, as long as I use the walker I am OK; chronic knee pain due to arthritis about 7/10 today; when walking, legs feel heavy Assessment PT Clinical Summary Leydi has received a total of 15 visits. Compared to the initial evaluation: skin integrity has improved with less redness and less fibrotic tissue over lower legs; circumferential measurements have decreased on R by 28.4 cm and L by 43.7 cm; standing waist/ trunk measurement has decreased by 5 cm; she continues to have some edema over dorsum of both feet, that varies during day; She just received the velcro lower leg pieces and compression capris-- they fit appropriately and she reports they are comfortable. The foot and ankle compression garments are on back order. Her is assisting her with the garments, because she is not able to reach her lower legs. Education for home exercises program, self massage skin care, compression garments has been completed. The goals were partially met. Continue PT for checking the new garments she just received today and any further education required to complete her treatment and then d/c. Plan of Care Interventions Intermittent Compression,Lymphedema Compression Wr ,Manual Lymph Drainage,Neuro Re-education,Patient/ Caregiver Education,Therapeutic Activities, Therapeutic Exercise PT Services Indicated Yes Treatment Frequency and 1-2x/wk for 4 visits Duration These treatments will address the objective and functional deficits as defined above. The patient will be advanced safely and appropriately in order for the patient to progress towards his/her prior level of function. Additional exercises will be introduced and as well as a comprehensive home exercise program upon discharge, if needed, ?to ensure carryover of functional gains achieved in the clinic. This treatment plan has been reviewed and agreement upon by the patient.
--- NOTE | 2024-07-10 08:54 | PCPTNOTE ---
pt did not show for today's appt. Called and they had the wrong time for today---thought appt was 10:00.
--- NOTE | 2024-07-12 15:39 | PTOPDC ---
Assessment and note entered by Vale Welch, PT Discharge Report Assessment Status Discharge Other ICD-10 Condition Codes ( lymphedema of both legs I 89.0 PT) Subjective Information feet and ankle continue to swell; have been doing the pump at home; doing the leg exercises at home; the garments are comfortable for legs; Reported Pain Level Pain Score 5: Self Report Assessment PT Clinical Summary Leydi has received a total of 16 PT sessions. Compared to the last progress report: circumferential measurements of her legs up to 64 cm: R increased by 7.6 cm and L increased by 26.4 cm--she had compression wraps on her L LE at the last measurement and now is using velcro garments to maintain her lymphedema; skin integrity has improved with less redness and fibrotic tissue; there is still some fibrotic tissue and lobules over both medial-distal thighs; circumferential measurement of her waist is increased by 4 cm to 128 cm; She and her have been educated and she is wearing velcro compression garments over feet/ankles and lower legs; she is not able to tolerate compression capris--too difficult for her to pull up/down with tolieting and she does not like them. She has a home intermittent compression pump and using with assist of her . Education completed for lymphedema care and management---self manual lymph drainage, compression garments for legs, LE exercises, monitor skin, skin care, use of home pump and wearing schedule for garments. The goals were partially met Discharge PT. Plan of Care PT Services Indicated No
== END 2024-07-16 23:59 | disposition home or self-care (01) ==
LOC: ANHPT 08:00
PROVIDERS: PCP Internal Medicine; Visit Provider Nurse Practitioner
DX: R60.0 Localized edema (principal)
CPT/HCPCS: 29581; 97016; 97110; 97140; 97161; 97530

== ENCOUNTER 2024-08-02 13:01 | Outpatient (CLI) | payer OTHER, MEDICARE, SELFPAY ==
[2024-08-02 13:29] LABS: Basophils Absolute Auto 0.1 K/mm3 (0.0-0.1); Basophils Percent Auto 0.5 % (0.2-1.2); Eosinophils Absolute Auto 0.2 K/mm3 (0-0.3); Eosinophils Percent Auto 1.9 % (0-4.4); Hematocrit 47.6 % (37.0-47.0); Hemoglobin 15.5 g/dL (12.0-15.0); Immature Granulocyte Absolute 0.08 K/mm3 (0.00-0.031); Immature Granulocyte Percent A 0.9 % (0-0.5); Lymphocytes Absolute Auto 1.63 K/mm3 (0.9-3.2); Lymphocytes Percent Auto 17.8 % (18.3-44.2); Mean Corpuscular HGB Conc 32.6 g/dl (32-36); Mean Corpuscular Volume 98.3 fl (80-100); Mean Platelet Volume 8.6 fl (7.4-10.4); Monocytes Absolute Auto 0.6 K/mm3 (0.1-0.6); Neutrophils Absolute Auto 6.6 K/mm3 (1.3-6.7); Neutrophils Percent Auto 71.9 % (45.5-73.1); Platelet Count Result 274 k/mm3 (150-375); Red Blood Count 4.84 M/mm3 (4.2-5.4); Red Cell Distribution Width 13.6 % (11.5-14.5); White Blood Count 9.2 K/mm3 (4.5-10.0)
[2024-08-02 13:33] LABS: Blood Urea Nitrogen 14 mg/dL (8-26); Carbon Dioxide 32 mmol/L (22-30); Chloride 97 mmol/L (98-109); Estimated Glomerular Filt Rate 35; Glucose 98 mg/dL (70-105); Ionized Calcium (POC) 1.15 mmol/L (1.11-1.31); Potassium 3.8 mmol/L (3.5-4.9); Sodium 142 mmol/L (138-146)
[2024-08-02 16:48] LABS: Alanine Aminotransferase 18 U/L (6-35); Albumin Level 4.2 g/dL (3.5-5.1); Alkaline Phosphatase 62 U/L (38-126); Anion Gap 1 mmol/L (4-12); Aspartate Amino Transferase 41 U/L (14-36); Bilirubin,Total 0.5 mg/dL (0.2-1.3); Blood Urea Nitrogen 15 mg/dL (7-17); Calcium 9.3 mg/dL (8.4-10.2); Carbon Dioxide 36 mmol/L (22-30); Chloride 102 mmol/L (98-107); Estimated Glomerular Filt Rate 37; Glucose 96 mg/dL (65-110); Potassium 3.9 mmol/L (3.4-5.0); Sodium 139 mmol/L (137-145)
== END 2024-08-02 13:02 | disposition home or self-care (01) ==
PROVIDERS: PCP Nurse Practitioner; Visit Provider Internal Medicine Hematology & Oncology
DX: D47.2 Monoclonal gammopathy (principal)
CPT/HCPCS: 36415; 80047; 80053; 85025

== ENCOUNTER 2024-11-09 08:33 | Emergency (ER) | payer OTHER, MEDICARE, SELFPAY ==
--- NOTE | ~2024-11-09 | US_ITS ---
EXAMINATION: US venous doppler [facility] DATE: 11/09/2024 10:34 INDICATION: Lower limb pain TECHNIQUE: Grayscale ultrasound images without and with compression and Doppler ultrasound images of the bilateral lower extremity veins were obtained. COMPARISON: None. FINDINGS: The visualized portions of right common femoral vein, profunda (deep) femoral vein, femoral vein, pop liteal vein, posterior tibial veins, peroneal veins, gastrocnemius vein and greater saphenous vein ou tflow are patent. The visualized portions of left common femoral vein, profunda femoral vein, femoral vein, popliteal v ein, posterior tibial veins, peroneal veins, gastrocnemius vein and greater saphenous vein outflow ar e patent. IMPRESSION: 1. No deep venous thrombosis in either lower limb. Reviewed, dictated and finalized at location A.
--- NOTE | ~2024-11-09 | XR_ITS ---
XR knee RT min 4V Ordering provider: Mari Hathaway PA-C History: . pain, falls . Comparison: None. FINDINGS: BONES: No acute fracture or dislocation. JOINT SPACES: Moderate to severe Narrowing of the medial compartment. Marginal osteophytes in the kne e and patella. SOFT TISSUES: Normal. IMPRESSION: No acute osseous abnormality right knee. Moderate to severe osteoarthritic changes. Reviewed, dictated and finalized at location A.
--- NOTE | ~2024-11-09 | XR_ITS ---
XR knee LT min 4V Ordering provider: Mari Hathaway PA-C History: . pain, falls . Comparison: None. FINDINGS: BONES: No acute fracture or dislocation. JOINT SPACES: Total knee arthroplasty. SOFT TISSUES: Normal. IMPRESSION: No acute osseous abnormality left knee. Total knee arthroplasty. Reviewed, dictated and finalized at location A.
[2024-11-09 08:35] VITALS: PULSE 80; RESP 18; TEMP 36.8; O2SAT 96
--- OUTSIDE RECORDS SUMMARY | 2024-11-09 09:45 | XMS_ITS | Clinical Summary ---
Author Organization [facility] Address [address] [place] [address] Care Team Providers Care Brusher Tender Name Role Phone Megan Cano MD Primary Care Provider [phone] Megan Cano MD Unavailable [phone] Kwame Hathaway MD Unavailable [phone] Source Comments [facility],non-owned Affiliates and Associated Physician Practices is amultiple site organization consisting of ambulatory clinics and hospital sitesin [place], [place]. This disclosure is being madepursuant to the Care Everywhere program and may not contain all information available regarding this patient. Last updated 18.[facility] Allergies Active Allergy Reactions Criticality Noted Date Comments Acyclovir Urticaria Medium 08/17/2014 Omeprazole Shortness of Breath High hyperventilation Medications * Be aware that medications may not be up to date on this document. Alwaysverify current medications with the patient. Medication Sig Dispensed Refills Start Date End Date Status LORazepam (ATIVAN) 2 MG tablet Take 2 mg by mouth 3 times daily Active pantoprazole EC (PROTONIX) 40 MG tablet Take 40 mg by mouth once daily Active lamoTRIgine (LAMICTAL) 200 MG tablet Take 200 mg by mouth 2 times daily Active cyclobenzaprine (FLEXERIL) 5 MG tablet Take 5 mg by mouth 2 times daily as needed Active HYDROcodone-acetam inophen (NORCO) 10-325 MG tablet Take 1 Tab by mouth every 8 hours as needed for Pain Active Cyanocobalamin 500 MCG/0.1ML every 7 days Active ARIPiprazole (ABILIFY) 1 MG half tablet Take 1 mg by mouth once daily Active DULOXETINE HCL PO Take 60 mg by mouth 2 times daily Active Mirabegron (MYRBETRIQ PO) Take 25 mg by mouth once daily Active doxycycline (VIBRAMYCIN) 50 MG capsule Take 50 mg by mouth every 12 hours For eye infection, 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 administration Active Eyelid Cleansers (AVENOVA EX) by Apply externally route 2 times daily Active polyvinyl alcohol-povidone (REFRESH) 1.4-0.6 % ophthalmic solution 1 Drop 2 times daily Acti ve Ferrous Sulfate (SLOW FE PO) Take 1 Tab by mouth once daily Active estradiol (YUVAFEM) 10 MCG vaginal tabletIndications: Postmenopausal atrophic vaginitis Insert 1 Tab into the vagina Two times a week 26 Tab 3 02/26/2017 Active Additional Information Patient not taking.Reported on 07/22/2020 sennosides (SENOKOT) 8.6 MG tablet Take by mouth at bedtime Active Fiber, Guar Gum, Take by mouth once daily 2 gummies daily Active traZODone (DESYREL) 100 MG tablet Take 200 mg by mouth at bedtime Active Cyanocobalamin (NASCOBAL) 500 MCG/0.1ML Active RESTASIS MULTIDOSE 0.05 % ophthalmic suspension 03/31/2017 Active ARIPiprazole (ABILIFY) 20 MG tablet 04/28/2017 Active DULoxetine (CYMBALTA) 60 MG capsule 05/07/2017 Active sertraline (ZOLOFT) 100 MG tablet Take 100 mg by mouth once daily Active buPROPion SR 12hr (WELLBUTRIN-SR) 150 MG tablet Take 150 mg by mouth 2 times daily Active famotidine (PEPCID) 40 MG tablet Take 40 mg by mouth once daily Active Active Problems Problem Noted Date Diagnosed Date Menopause Postmenopausal atrophic vaginitis Urgency Urinary Incontinence Polypharmacy Fecal incontinence Bipolar Disorder Resolved Problems Problem Noted Date Diagnosed Date Resolved Date XIOMARA (stress urinary incontinence, female) 05/20/2017 Constipation 03/26/2017 POP-Q stage 2 rectocele 04/24 POP-Q stage 1 cystocele 04/24 Family History Medical History Relation Name Comments Cancer - Colon Father Relation Name Status Comments Father Social History Tobacco Use Types Packs/Day Years Used Date Smoking Tobacco: Former Cigarettes Q uit: 2015 Smokeless Tobacco: Never Alcohol Use Standard Drinks/Week Comments No 0 (1 standard drink = 0.6 oz pur e alcohol) Sex and Gender Information Value Date Recorded Sex Assigned at Not on file Gender Identity Not on file Sexual Orientation Not on file Last Filed Vital Signs Vital Sign Reading Time Taken Comments Blood Pressure 130/78 07/22/2020 12:05 PM CRAWLER CRANE OPERATOR Pulse 83 07/22/2020 12:05 PM CRAWLER CRANE OPERATOR Temperature 37 C (98.6 F) 07/22/2020 11:07 AM CRAWLER CRANE OPERATOR Respiratory Rate 22 07/22/2020 12:05 PM CRAWLER CRANE OPERATOR Oxygen Saturation 94% 07/22/2020 12:26 PM CRAWLER CRANE OPERATOR Inhaled Oxygen Concentration 50% 2017 1 0:20 AM CDT Weight 124.7 kg (275 lb) 07/22/2020 10:58 AM CRAWLER CRANE OPERATOR Height 162.6 cm (5' 4 ) 07/22/2020 10:58 AM CRAWLER CRANE OPERATOR Body Mass Index 47.2 07/22/2020 10:58 AM CRAWLER CRANE OPERATOR Plan of Treatment Health Maintenance Due Date Last Done Comments BONE DENSITY TESTING 1955 COLOGUARD (AGES 45-75) - COLON CA SCREENING 1955 CT COLONOGRAPHY - COLON CA SCREENING 1955 FIT - COLON CA SCREENING 1955 FLEX SIG - COLON CA SCREENING 1955 LIPID TESTING 1955 HEPATITIS C SCREENING 04/03/1974 DTAP/TDAP/TD VACCINES (1 - Tdap) 1975 PNEUMOCOCCAL VACCINE 50+ (1 of 1 - PCV) 2006 ZOSTER VACCINE (1 of 2) 2006 Respiratory Syncytial Virus (RSV) Vaccine Pt: or over 60 yrs (1 - Risk 60-74 years 1-dose series) 2016 SCREENING FOR DIABETES 03/03/2017 COVID-19 VACCINE ( - 2023-2 5 season) 2024 INFLUENZA VACCINE (#1) 2024 COLON MONITORING 07/22/2030 07/22/2020, 07/22/2020, 07/22/2020 COLONOSCOPY - COLON CA SCREENING 07/22/2030 07/22/2020, 07/22/2020, 07/22/2020 Colorectal Cancer Screening 07/22/2030 HEPATITIS B VACCINE Aged Out No longe r eligible based on patient's age to complete this topic HIB VACCINE Aged Out No longer eligi ble based on patient's age to complete this topic HPV VACCINE Aged Out No longer eligi ble based on patient's age to complete this topic MAMMOGRAM Discontinued MENINGOCOCCAL (Group B) VACCINE SHARED DECISION-MAKING Aged Out No longer eligible based on patient's age to complete this topic MENINGOCOCCAL GROUPS A/C/Y/W VACCINE Aged Out No longer eligible based on patient's age to complete this topic Medical Devices Implanted Type Area Doping Supervisor Device Identifier Shelf Expiration Date Model / Serial / Lot Sys Ureth Supp Obtryx Midurethral Trnstr Implanted:Qty: 1 on 2017 by Kwame Hathaway MD at [facility] [employer] 01/11/2020 [id number] / / [id number] Graft Tissue Xenform Ftl Bvn Drml Mtrx 7 Implanted:Qty: 1 on 2017 by Kwame Hathaway MD at [facility] [employer] 08/22/2019 [id number] / / [id number] Procedures Procedure Name Priority Date/Time Associated Diagnosis Comments ENDOSCOPY, COLON, SCREENING Routine 07/22/2020 10:36 AM CRAWLER CRANE OPERATOR from Last 3 Months or Most Recently Relevant to Health Maintenance Results * ENDOSCOPY, COLON, SCREENING (07/22/2020 10:36 AM CRAWLER CRANE OPERATOR) Report Endoscopy POC _ Patient Name: Leydi Su Procedure Date: 07/22/2020 10:36 AM Date of : 1955 Admit Type: Outpatient Age: 65 Gender: Female Ethnicity: Not or Race: White Attending MD: Damien Green MD _ Procedure: Colonoscopy Indications: Family history of colon cancer in a first-degree relative, Last colonoscopy 10 years ago Providers: Damien Green MD (Doctor), Oralia العلي RN, Bridget Belcher Referring MD: Megan Cano MD (Referring MD) Medicines: Monitored Anesthesia Care Complications: No immediate complications. Estimated blood loss: Minimal. _ Procedure: Pre-Anesthesia Assessment: - Prior to the procedure, a History and Physical was performed, and patient medications and allergies were reviewed. The patient's tolerance of previous anesthesia was also reviewed. The risks and benefits of the procedure and the sedation options and risks were discussed with the patient. All questions were answered, and informed consent was obtained. Prior Anticoagulants: The patient has taken no previous anticoagulant or antiplatelet agents. ASA Grade Assessment: III - A patient with severe systemic disease. After reviewing the risks and benefits, the patient was deemed in satisfactory condition to undergo the procedure. After I obtained informed consent, the scope was passed under direct vision. Throughout the procedure, the patient's blood pressure, pulse, and oxygen saturations were monitored continuously. The Colonoscope was introduced through the anus and advanced to the cecum, identified by appendiceal orifice and ileocecal valve. The colonoscopy was performed without difficulty. The patient tolerated the procedure well. The quality of the bowel preparation was excellent. The ileocecal valve, appendiceal orifice, and rectum were photographed. Impression: - Two 4 to 12 mm polyps in the cecum, removed with a hot snare. Resected and retrieved. Injected. - One 2 mm polyp at the hepatic flexure, removed with a jumbo cold forceps. Resected and retrieved. - Diverticulosis in the sigmoid colon. - The examination was otherwise normal. Findings: Two flat polyps were found in the cecum. The polyps were 4 to 12 mm in size. Area was successfully injected with saline for a lift polypectomy. These polyps were removed with a hot snare. Resection and retrieval were complete. Estimated blood loss was minimal. A 2 mm polyp was found in the hepatic flexure. The polyp was sessile. The polyp was removed with a jumbo cold forceps. Resection and retrieval were complete. Estimated blood loss was minimal. Scattered small-mouthed diverticula were found in the sigmoid colon. The exam was otherwise without abnormality. _ Recommendation: - Patient has a contact number available for emergencies. The signs and symptoms of potential delayed complications were discussed with the patient. Return to normal activities tomorrow. Written discharge instructions were provided to the patient. - Resume previous diet. - Continue present medications. - Await pathology results. - Repeat colonoscopy in 5 years for surveillance. Procedure Code(s): --- Professional --- 73585, Colonoscopy, flexible; with removal of tumor(s), polyp(s), or other lesion(s) by snare technique 58856, Colonoscopy, flexible; with directed submucosal injection(s), any substance 58283, 59, Colonoscopy, flexible; with biopsy, single or multiple --- Technical --- 46224, Colonoscopy, flexible; with removal of tumor(s), polyp(s), or other lesion(s) by snare technique 57680, Colonoscopy, flexible; with directed submucosal injection(s), any substance 06767, 59, Colonoscopy, flexible; with biopsy, single or multiple Diagnosis Code(s): --- Professional --- D12.0, Benign neoplasm of cecum D12.3, Benign neoplasm of transverse colon (hepatic flexure or splenic flexure) Z80.0, Family history of malignant neoplasm of digestive organs --- Technical --- D12.0, Benign neoplasm of cecum D12.3, Benign neoplasm of transverse colon (hepatic flexure or splenic flexure) Z80.0, Family history of malignant neoplasm of digestive organs CPT copyright 2017 [employer]. All rights reserved. The codes documented in this report are preliminary and upon final inspector motorcyles review may be revised to meet current compliance requirements. Damien Green MD 07/22/2020 12:00:12 PM This report has been signed electronically. Number of Addenda: 0 Note Initiated On: 07/22/2020 10:36 AM HC ENDOSCOPY 07/22/2020 10:3 6 AM CRAWLER CRANE OPERATOR Damien Green MD GI PROCEDURE ORDERAB LES [facility] ENDOSCOPY from Last 3 Months or Most Recently Relevant to Health Maintenance Advance Directives * Full Code (Latest Code Status on File) Date Activated Date Inactivated Comments 2017 12:04 PM 04/08/2017 5:39 PM Care Teams Brusher Tender Relationship Specialty Start Date End Date Megan Cano MD [address] [place] [address] PCP - General Internal Medicine 02/26/17 Megan Cano MD [address] [place] [address] 02/26/17 Kwame Hathaway MD [address] [place] [address] Cigarette Making Machine Hopper Feeder Obstetrics and Gynecology 05/20/17
--- OUTSIDE RECORDS SUMMARY | 2024-11-09 09:45 | XMS_ITS | CONTINUITY OF CARE DOCUMENT ---
Author Name josh moreno Address Unknown Organization [facility] Address [address] [place] [address] Phone [phone] Care Team Providers Care Tennis Desk Team Member Name Role Phone Tyrese APPIAH, Eloisa Unavailable INSURANCE PROVIDERS Payer name Policy type / Coverage type Eamon red green party ID [place] [id number] [employer] OPEN ACCESS Other [id number]
--- OUTSIDE RECORDS SUMMARY | 2024-11-09 09:45 | XMS_ITS ---
Author Organization [facility] Address [address] [place], [place] [id number] Care Team Providers Care Certified Ophthalmic Assistant Name Role Phone DEE GEE Unavailable [phone] Yannick Umanzor Unavailable Unavailable Allergies No Known Allergies REASON FOR VISIT *General care Immunizations Vaccine Route Administration Date Status Comme nts Influenza, high dose seasonal Unknown 11/02/2024 Refuse d Pneumococcal conjugate PCV 13 Unknown 11/02/2024 Refuse d Vital Signs Height 64.00 in 11/02/2024 Weight 300 lbs 11/02/2024 BMI 51.49 kg/m2 11/02/2024 Height-cm 162.56 cm 11/02/2024 Weight-kg 136.08 kg 11/02/2024 Encounters Encounter Location Date Provider Diagnosis [facility] [address] [place], [place] [id number] 11/02/2024 DEE GEE Atherosclerosis of [place] arteries of extremities with intermittent claudication, bilateral legs I70.213 ; Onychomycosis B35.1 ; Pain in right toe(s) M79.674 and Pain in left toe(s) M79.675 Assessments Encounter Date Diagnosis (ICD Code) Assessment Notes Treatment Notes Treatment Clinical Notes Section Notes 11/02/2024 Atherosclerosis of [place] arteries of extremities with intermittent claudication, bilateral legs (ICD-10 - I70.213) 11/02/2024 Onychomycosis (ICD-10 - B35.1) Nails 1-5 Bilateral were debrided extensively with nail nippers and emery board, reducing length and girth to pink healthy tissue with any subungual debris and necrotic tissue removed 11/02/2024 Pain in right toe(s) (ICD-10 - M79.674) 11/02/2024 Pain in left toe(s) (ICD-10 - M79.675) Plan Of Treatment Treatment Notes Assessment Notes Onychomycosis Nails 1-5 Bilateral were debrided extensively with nail nippers and emery board, reducing length and girth to pink healthy tissue with any subungual debris and necrotic tissue removed Next Appt Details Follow Up: 9 weeks, Reason: Provider Name:DEE LISA, 01/04/2025 08:50:00 AM, [address], [address], [id number], Progress Notes * PFEIFFERVALEDOB:1955 (69 yo F)Acc No.[id number]:11/02/2024 Patient: VALE BENJAMIN Provider: Melisa Gee DPM :1955 A ge:69 Y S ex:Female Date:11/02/2024 Address:[address] [place] [address] Subjective: * Chief Complaints: * 1 . *General care. * HPI: H PI: General care P atient presents to the office for at risk foot care. Patient states that their nails are thickened, elongated and painful. Patient states that it is aggravated by shoe gear. Onset is gradual. Patient denies being diabetic., Patient denies taking prescription blood thinners but does take a daily aspirin., Date last seen by Dr. Aguilar was August 2024., Initials LB. * Medical History: A steph reflux, Artificial joint, Fibromyalgia, GERD, Respiratory disease, Sleep apnea, Back Trouble, Psychiatric Disorder, Hypertension. * Surgical History: B rain surgery , Right foot surgery , Right wrist surgery , Bladder surgery . * Family History: F ather: PRN - Father: :: Cancer,,known absent . M other: PRN - Mother: :: Hypertension,,known absent , :: Anemia,,known absent . * Social History: M igrated Social History: M igrated Social History: Smoking Status : Former tobacco user , History of tobacco use :. * Medications: N one * Allergies: N .K.D.A. Objective: * Vitals: S hoe Size: 9w, Wt:300lbs, Wt-k.08 kg, Ht: 64.00 in, Ht-cm: 162.56 cm, BMI:51.49Index, Body Surface Area: 2.48. * Examination: C onstitutional: Constitutional T he patient is awake, alert, well developed, well groomed and well nourished. . D ermatologic: Skin findings: S kin is thin, atrophic and lacking pedal hair. . Nail pathology: N ails 1-5 bilateral are elongated, thick, discolored, and dystrophic with subungual debris. They are painful to palpation . Ulcer: T here is no evidence of ulceration noted at this time . Hyperkeratotic Skin Lesion T here is no evidence of hyperkeratosis . M usculoskeletal: Muscle Strength M uscle strength is 5/5 in regards to dorsiflexion, plantarflexion, inversion, and eversion in bilateral lower extremities. . Foot Structure T he foot structure is noted to be normal bilaterally . Pain on palpation T here is no pain on palpation . Gait T here is normal gait noted . N eurologic: Muscle power: 5 /5 bilaterally . Gross sensation G ross sensation is intact to light touch. . V ascular: Dorsalis pedis pulse: 0 /4 bilateral . Posterior tibial pulse: 0 /4 bilaterally . Capillary refill: g reater than 3 seconds bilaterally .? Temperature gradient: w arm to cool bilaterally . ? Assessment: * Assessment: 1. O nychomycosis - B35.1 (Primary) 2 . A therosclerosis of [place] arteries of extremities with intermittent claudication, bilateral legs - I70.213 3 . P ain in right toe(s) - M79.674 4 . P ain in left toe(s) - M79.675 Plan: * Treatment: * Immunizations: Influenza, high dose seasonal (Not administered - Refused: Patient decision) Pneumococcal conjugate PCV 13 (Not administered - Refused: Patient decision) ???Immunization record has been reviewed and updated. * Follow Up: 9 weeks * Billing Information: * Visit Code: * Procedure Codes: * Electronic signature of DEE GEE DPM on 11/09/2024 at 09:45 AM CDT Sign off status: Pending * Provider: Melisa Gee, [place] Date: 0 11/02/2024 Generated for Dina palacio/Jono/Radha on: 0 11/09/2024 09:45 AM CDT History and Physical Notes * HPI (History of Present Illness) Category Sub-Category Detail Notes Category Not es HPI General care Patient presents to the office for at risk foot care. Patient states that their nails are thickened, elongated and painful. Patient states that it is aggravated by shoe gear. Onset is gradual. Patient denies being diabetic., Patient denies taking prescription blood thinners but does take a daily aspirin., Date last seen by Dr. Aguilar was August 2024., Initials LB Examination Category Sub-Category Detail Notes Category Not es Constitutional Constitutional The patient is a wake, alert, well developed, well groomed and well nourished. Dermatologic Skin findings: Skin is thin, at rophic and lacking pedal hair. Nail pathology: Nails 1-5 bilateral are elongated, thick, discolored, and dystrophic with subungual debris. They are painful to palpation Ulcer: There is no evidence of ulceration noted at this time Hyperkeratotic Skin Lesion There is no e vidence of hyperkeratosis Musculoskeletal Muscle Strength Muscle strength is 5/5 in regards to dorsiflexion, plantarflexion, inversion, and eversion in bilateral lower extremities. Pain on palpation There is no pain on palpation Foot Structure The foot structure i s noted to be normal bilaterally Gait There is normal gait noted Neurologic Muscle power: 5/5 bilaterally Gross sensation Gross sensation is i ntact to light touch. Vascular Dorsalis pedis pulse: 0/4 bilateral Posterior tibial pulse: 0/4 bilaterally Capillary refill: greater than 3 secon ds bilaterally Temperature gradient: warm to cool elen giorn
--- OUTSIDE RECORDS SUMMARY | 2024-11-09 09:45 | XMS_ITS | Referral Summary ---
Author Organization [facility] [address] Address [address] [place] [address] Care Team Providers Care Finisher Brush Name Role Phone Yannick Umanzor DO Primary Care Provider [phone] Allergies Active Allergy Reactions Criticality Noted Date Comments Acyclovir Hives,Other (See comments),Urticaria Medium 08/17/2014 Reaction: Hives, Reaction: Other Omeprazole Other (See comments),Shortness of breath High 08/17/2014 Reaction: Unknown, , Reaction: Unknown, Reaction: Other hyperventilate hyperventilation Medications lamoTRIgine (LaMICtal) 200 mg tablet Take 1 tablet (200 mg total) by mouth 2 (two) times a day Active LORazepam (ATIVAN) 2 mg tablet 2 (two) times a day [address] (PROTONIX) 40 mg EC tablet Take 1 tablet (40 mg total) by mouth daily Active traZODone (DESYREL) 100 mg tablet Take 2 tablets (200 mg total) by mouth nightly 0 Active ARIPiprazole (ABILIFY) 30 mg tablet [address] (CYMBALTA) 60 mg capsule 0 Active sertraline (ZOLOFT) 100 mg tablet TAKE 2 TABLETS EVERY DAY IN THE EVENING 0 Active Vitamin D2 1,250 mcg (50,000 unit) capsule Take 1 capsule (50,000 Units total) by mouth once a week 0 Active iron, carbonyl (FEOSOL) 45 mg tabletIndications :Iron Deficiency Anemia 0.283 tablets (45 mg total) Active furosemide (LASIX) 40 mg tablet 0 Active triamcinolone (KENALOG) 0.1 % cream 0 Active ascorbic acid (VITAMIN C) 500 mg tablet,chewable Acti ve cyanocobalamin (Vitamin B-12) 1,000 mcg tabletIndications :Prevention of Vitamin B12 Deficiency Take 1 tablet (1,000 mcg total) by mouth daily Active buPROPion XL (WELLBUTRIN XL) 150 mg 24 hr tablet Take 1 tablet (150 mg total) by mouth 2 (two) times a day 2 Active oxybutynin XL (DITROPAN-XL) 10 mg 24 hr tablet 2 Active amLODIPine (NORVASC) 5 mg tablet 3 Active hydroCHLOROthiazi de (HYDRODIURIL) 12.5 mg tablet 3 Active carvediloL (COREG) 12.5 mg tabletIndications :Essential hypertension TAKE 1 TABLET BY MOUTH TWICE A DAY WITH FOOD 180 tablet 1 4 Active Active Problems Problem Noted Date Diagnosed Date Atypical chest pain 12/03/2023 Morbid obesity 08/06/2022 Abnormal PFTs 03/22/2020 Lipid screening 03/22/2020 SIMEON (obstructive sleep apnea) 02/09/2020 Gastroesophageal reflux disease 02/09/2020 Morbid obesity with BMI of 45.0-49.9, adult 01/21 Essential hypertension 02/09/2020 PINEDA (dyspnea on exertion) 02/09/2020 Former smoker 02/09/2020 Nonrheumatic aortic valve stenosis 02/09/2020 Diastolic dysfunction 02/09/2020 Hypervolemia 02/09/2020 Social History Tobacco Use Types Packs/Day Years Used Date Smoking Tobacco: Former Cigarettes 30 Smokeless Tobacco: Never Tobacco Cessation:Counseling Given: Not Answered Alcohol Use Standard Drinks/Week Comments No 0 (1 standard drink = 0.6 oz pur e alcohol) Comments Unknown Sex and Gender Information Value Date Recorded Sex Assigned at Not on file Legal Sex Female 1:37 AM SHEET COMBINING OPERATOR Gender Identity Female 01/02/2024 7:43 PM CDT Sexual Orientation Straight 01/02/2024 7: 43 PM CDT Last Filed Vital Signs Vital Sign Reading Time Taken Comments Blood Pressure 142/60 12/31/2023 2:20 PM CDT Pulse 70 12/31/2023 2:20 PM CDT Temperature 36.4 C (97.6 F) 10/18/2020 9:01 AM SHEET COMBINING OPERATOR Respiratory Rate 20 10/18/2020 9:01 AM SHEET COMBINING OPERATOR Oxygen Saturation 95% 12/03/2023 1:24 PM CDT Inhaled Oxygen Concentration - - Weight 126.1 kg (278 lb) 12/31/2023 2:20 PM CDT Height 162.6 cm (5' 4 ) 12/31/2023 2:20 PM CDT Body Mass Index 47.72 12/31/2023 2:20 PM CDT Plan of Treatment Not on file Procedures Procedure Name Priority Date/Time Associated Diagnosis Comments SCREENING MAMMOGRAM Routine 09/25/2013 1 0:31 AM SHEET COMBINING OPERATOR from Last 3 Months or Most Recently Relevant to Health Maintenance Results * Screening Mammogram (09/25/2013 10:31 AM SHEET COMBINING OPERATOR) Anatomical Region Laterality Modality Breast N/A Mammography 09/25/2013 10:3 1 AM SHEET COMBINING OPERATOR Narrative 09/29/2013 8:47 AM SHEET COMBINING OPERATOR SONNY ABDI M.D. FINAL REPORT ACC# Date Time Exam [id number] Sep 25, 2013 10:31:00 BMV [id number] [place] Screening Mamm Technologist(s): Vale Curran; ; EXAMINATION: Mammogram Technique: Bilateral Full-Field Digital Screening Mammogram was performed. Views obtained: bilateral craniocaudal and bilateral mediolateral oblique. Computer Aided Detection was performed with IND [employer] 1.3 version 9.3. Mammogram Findings: The present examination has been compared to a prior imaging study performed at [facility] on 09/23/2012. There are scattered fibroglandular densities. There is no suspicious abnormality in either breast. IMPRESSION: Annual screening mammography is recommended. OVERALL FINAL ASSESSMENT: BI-RADS CATEGORY 1: Negative. Requested By: DARRELL BOOKER Dictated By: SONNY ABDI M.D. on Sep 29 2013 8:47A This document has been electronically signed by: SONNY ABDI M.D. on Sep 29 2013 8:45A Procedure Note Provider, MD Rl - 12/18/2016 SONNY ABDI M.D. FINAL REPORT ACC# Date Time Exam [id number] Sep 25, 2013 10:31:00 BMV [id number] [place] Screening Mamm Technologist(s): Vale Curran; ; EXAMINATION: Mammogram Technique: Bilateral Full-Field Digital Screening Mammogram was performed. Views obtained: bilateral craniocaudal and bilateral mediolateral oblique. Computer Aided Detection was performed with AdXpose.3 version 9.3. Mammogram Findings: The present examination has been compared to a prior imaging study performed at [facility] on09/23/2012. There are scattered fibroglandular densities. There is no suspicious abnormality in either breast. IMPRESSION: Annual screening mammography is recommended. OVERALL FINAL ASSESSMENT: BI-RADS CATEGORY 1: Negative. Requested By: DARRELL BOOKER Dictated By: SONNY ABDI M.D. on Sep 29 2013 8:47A This document has been electronically signed by: SONNY ABDI M.D. on Sep 29 2013 8:45A Historical Provider MD [facility] MAMMO PROCEDURES Gaby l Result from Last 3 Months or Most Recently Relevant to Health Maintenance Insurance [employer] [facility] Member Subscriber Plan / Payer (Ef fective 2010-Present) Name:Leydi Su Member ID:[id number] Relation to Subscriber:Self Name:Leydi Su Subscriber ID:[id number] Payer ID:[id number] Type:[employer] HMO/PPO Address: [address] [place] [id number] [facility] MEDICARE [facility] [address] [facility] [address] MEDICARE MEDICARE [facility] [address] Care Teams Finisher Brush Relationship Specialty Start Date End Date Yannick Umanzor DO PCP - General Internal Medicine 10/18/20
--- OUTSIDE RECORDS SUMMARY | 2024-11-09 09:45 | XMS_ITS | Clinical Summary ---
Author Organization [facility] [address] Address [address] [place] [address] Care Team Providers Care Nurse Staff Community Health Name Role Phone Yannick Umanzor DO Primary Care Provider [phone] Allergies Active Allergy Reactions Criticality Noted Date [...] stenosis 02/09/2020 Diastolic dysfunction 02/09/2020 Hypervolemia 02/09/2020 Surgical History Surgery Date Site/Laterality Comments FOOT SURGERY Right foot surgery KNEE ARTHROPLASTY Knee replacement Medical History Medical History Date Comments Intracranial tumor (HCC) Brain t umor Hypertension Hypertension Family History Medical History Relation Name Comments Cancer Father Other Father spinal tumor; Diabetes Mother Hypertension Mother Hypertension; Hypertension Other 1 Hypertension; Heart attack Other 2 Myocardial infa rction; Stroke Other 3 Stroke; MS Sister Multiple sclerosis Sister Multiple sclerosis; Relation Name Status Comments Brother Alive Father Mother Alive Other 1 Other 2 Other 3 Sister Alive Social History Tobacco Use Types Packs/Day Years Used Date Smoking Tobacco: Former Cigarettes 1 30 Smokeless Tobacco: Never Tobacco Cessation:Counseling Given: Not Answered Alcohol Use Standard Drinks/Week Comments No 0 (1 standard drink = 0.6 oz pur e alcohol) Comments Unknown Sex and Gender Information Value Date Recorded Sex Assigned at Not on file Legal Sex Female 1:37 AM MANAGER BUSINESS SYSTEMS Gender Identity Female 01/02/2024 7:43 PM CDT Sexual Orientation Straight 01/02/2024 7: 43 PM CDT Obstetrics History Last Filed Vital Signs Vital Sign Reading Time Taken Comments Blood Pressure 142/60 12/31/2023 2:20 PM CDT Pulse 70 12/31/2023 2:20 PM CDT Temperature 36.4 C (97.6 F) 10/18/2020 9:01 AM MANAGER BUSINESS SYSTEMS Respiratory Rate 20 10/18/2020 9:01 AM MANAGER BUSINESS SYSTEMS Oxygen Saturation 95% 12/03/2023 1:24 PM CDT Inhaled Oxygen Concentration - - Weight 126.1 kg (278 lb) 12/31/2023 2:20 PM CDT Height 162.6 cm (5' 4 ) 12/31/2023 2:20 PM CDT Body Mass Index 47.72 12/31/2023 2:20 PM CDT Plan of Treatment Health Maintenance Due Date Last Done Comments Colon Cancer Screening-Colonoscopy 1955 Depression Screening 1955 Hepatitis C Screening 1955 Osteoporosis Screening-Bone Density Scan 1955 DTaP/Tdap/Td Vaccine (1 - Tdap) 1967 Hepatitis B Screening 1974 Zoster Vaccine (1 of 2) 2006 Breast Cancer Screening-Mammogram 09/25/2014 09/25/2013, 09/25/2013, 09/23/2012 Pneumococcal vaccine 65+ (2 of 2 - PPSV23) 06/14/2019 06/14/2018 Well Visit 65+ 2021 Fall Risk Assessment 06/14/2021 06/14/2020, 03/22/2020, 02/09/2020 Influenza Vaccine (#1) 2024 06/14/2018, 2014 Procedures Procedure Name Priority Date/Time Associated Diagnosis Comments SCREENING MAMMOGRAM Routine 09/25/2013 1 0:31 AM MANAGER BUSINESS SYSTEMS from Last 3 Months or Most Recently Relevant to Health Maintenance Results * Screening Mammogram (09/25/2013 10:31 AM MANAGER BUSINESS SYSTEMS) Anatomical Region Laterality Modality Breast N/A Mammography 09/25/2013 10:3 1 AM MANAGER BUSINESS SYSTEMS Narrative 09/29/2013 8:47 AM MANAGER BUSINESS SYSTEMS SONNY ABDI M.D. FINAL REPORT ACC# Date Time Exam [id number] Sep 25, 2013 10:31:00 BMV [id number] [place] Screening Mamm Technologist(s): Vale Curran; ; EXAMINATION: Mammogram Technique: Bilateral Full-Field Digital Screening Mammogram was performed. Views obtained: bilateral craniocaudal and bilateral mediolateral oblique. Computer Aided Detection was performed with Moni.3 version 9.3. Mammogram Findings: The present examination has been compared to a prior imaging study performed at [facility] on 09/23/2012. There are [...] M.D. FINAL REPORT ACC# Date Time Exam [id number] Sep 25, 2013 10:31:00 BMV [id number] [place] Screening Mamm Technologist(s): Vale Curran; ; EXAMINATION: Mammogram Technique: Bilateral Full-Field Digital Screening Mammogram was performed. Views obtained: bilateral craniocaudal and bilateral mediolateral oblique. Computer Aided Detection was performed with [employer] 1.3 version 9.3. Mammogram Findings: The present examination has been compared to a prior imaging study performed at [facility] on09/23/2012. There are scattered [...] Most Recently Relevant to Health Maintenance Insurance [facility] Member Subscriber Plan / Payer ( fective 2010-Present) Name:Leydi Su Member ID:[id number] Relation to Subscriber:Self Name:Leydi Su Subscriber ID:[id number] Payer ID:[id number] Type:[employer] Address: [address] MEDICARE [facility] Address: [address] [address] [place] [address] [facility] [address] [facility] [address] MEDICARE MEDICARE [facility] [id number] Care Teams Nurse Staff Community Health Relationship Specialty Start Date End Date Yannick Umanzor DO PCP - General Internal Medicine 10/18/20
--- OUTSIDE RECORDS SUMMARY | 2024-11-09 09:45 | XMS_ITS ---
Author Organization [facility] Address [address] [facility] [address] [place], [place] [id number] Care Team Providers Care Senior Peoplesoft Developer Name Role Phone DEE GEE Unavailable [phone] Yannick Umanzor Unavailable Unavailable REASON FOR VISIT *General care Encounters Encounter Location Date Provider Diagnosis [facility] [place] [address] [place], [place] [id number] 08/03/2024 DEE GEE Atherosclerosis of [place] arteries of extremities with intermittent claudication, bilateral legs I70.213 ; Onychomycosis B35.1 ; Pain in right toe(s) M79.674 and Pain in left toe(s) M79.675 Assessments Encounter Date Diagnosis (ICD Code) Assessment Notes Treatment Notes Treatment Clinical Notes Section Notes 08/03/2024 Atherosclerosis of [place] arteries of extremities with intermittent claudication, bilateral legs (ICD-10 - I70.213) 08/03/2024 Onychomycosis (ICD-10 - B35.1) Nails 1-5 Bilateral were debrided extensively with nail nippers and emery board, reducing length and girth to pink healthy tissue with any subungual debris and necrotic tissue removed 08/03/2024 Pain in right toe(s) (ICD-10 - M79.674) 08/03/2024 Pain in left toe(s) (ICD-10 - M79.675) Plan Of Treatment Treatment Notes Assessment Notes Onychomycosis Nails 1-5 Bilateral were debrided extensively with nail nippers and emery board, reducing length and girth to pink healthy tissue with any subungual debris and necrotic tissue removed Next Appt Details Follow Up: 9 weeks, Reason: Provider Name:DEE LISA, 01/04/2025 08:50:00 AM, [address], [facility], [place], [place], [id number], Progress Notes * VALE PFEIFFERDOB:1955 (69 yo F)Acc No.[id number]:08/03/2024 Patient: VALE BENJAMIN Provider: Melisa Gee DPM :1955 A ge:69 Y S ex:Female Date:08/03/2024 Address:[address] [place] [address] Subjective: * Chief Complaints: * * General care * HPI: H PI: General care P atient presents to the office for at risk foot care. Patient states that their nails are thickened, elongated and painful. Patient states that it is aggravated by shoe gear. Onset is gradual. Patient denies being diabetic. Patient denies taking prescription blood thinners but does take a daily aspirin. Date last seen by Dr. Umanzor was 06/2024. Initials sea. * Medical History: * Surgical History: * Hospitalization/Major Diagno stic Procedure: * Medications: N one Objective: * Vitals: * Examination: C onstitutional: Constitutional T he [...] B35.1 (Primary) 2 . A therosclerosis of [place] arteries of extremities with intermittent claudication, bilateral legs - I70.213 3 . P ain in right toe(s) - M79.674 4 . P ain in left toe(s) - M79.675 Plan: * Treatment: * Procedure Codes: * Follow Up: 9 weeks * Billing Information: * Visit Code: 81220 Office Visit, Est Pt., Level 3. * Procedure Codes: * Sign off status: Completed true * Provider: Melisa Gee DPM Date: 10/04/2023 Generated for Dina palacio/Jono/Radha on: 0 11/09/2024 [...] gear. Onset is gradual. Patient denies being diabetic. Patient denies taking prescription blood thinners but does take a daily aspirin. Date last seen by Dr. Umanzor was 06/2024. Initials sea Examination Category Sub-Category Detail Notes Category Not [...] ds bilaterally Temperature gradient: warm to cool bilat erally
--- OUTSIDE RECORDS SUMMARY | 2024-11-09 09:45 | XMS_ITS | Clinical Summary ---
Author Organization [facility] Address [address] [facility] [address] [place] [address] Phone Care Team Providers Care Knowledge Analyst Name Role Phone Yannick Umanzor DO Primary Care Provider Allergies Active Allergy Reactions Criticality Noted Date Comments Acyclovir Sodium Hives High 08/17/2014 Omeprazole Magnesium Other (See Comments) 08/17 hyperventilate Medications LORazepam (ATIVAN) 2 mg tablet Take 2 mg by mouth 3 times daily. Active traZODone (DESYREL) 150 mg tablet Take 150 mg by mouth daily at bedtime. Active lamoTRIgine (LAMICTAL) 200 mg tablet Take 200 mg by mouth daily. Active pantoprazole (PROTONIX) 40 mg Tablet, Delayed Release (E.C.) Take 40 mg by mouth daily. Active albuterol sulfate 90 mcg/Actuation inhaler 2 Active amLODIPine (NORVASC) 5 mg tablet 1 Active ARIPiprazole (ABILIFY) 30 mg tablet 2 Active ascorbic acid (VITAMIN C) 500 mg Tablet, Chewable 0 Active carvediloL (COREG) 12.5 mg tablet 2 Active sertraline (ZOLOFT) 100 mg tablet 2 Active oxybutynin chloride (DITROPAN XL) 10 mg Extended Release 24 hour tablet 2 Active carbonyl iron (FEOSOL) 45 mg Tablet 45 mg. Active ferrous sulfate 325 mg (65 mg iron) tablet Take by mouth every 24 hours. 0 Active ergocalciferol (VITAMIN D2) 50,000 unit capsule 0 Active DULoxetine (CYMBALTA) 60 mg Capsule, Delayed Release(E.C.) 2 Active cholecalciferol , vitamin D3, 1,000 unit 1 Tablet daily Acti ve buPROPion HCL (WELLBUTRIN XL) 150 mg Extended Release 24 hour tablet 2 Active Tyrvaya 0.03 mg/spray spray, metered, non-aerosol Administer 1 [place] in each nostril 2 times daily. 4 Active Wegovy 0.25 mg/0.5 mL Pen Injector 0.25 mg by See Admin Instructions route every 7 days. 4 Active Active Problems Problem Noted Date Diagnosed Date Monoclonal gammopathy of unknown significance Encounters Date Type Department Care Team Description 10/28/2024 External Device Data [facility] ABSTRACTION Provider, Abstract 10/27/2024 External Device Data [facility] ABSTRACTION Provider, Abstract 10/25/2024 External Device Data [facility] ABSTRACTION Provider, Abstract 10/25/2024 External Device Data [facility] ABSTRACTION Provider, Abstract 10/11/2024 External Device Data [facility] ABSTRACTION Provider, Abstract 09/13/2024 External Device Data [facility] ABSTRACTION Provider, Abstract 09/13/2024 External Device Data [facility] ABSTRACTION Provider, Abstract 09/04/2024 4:30 PM SALES RESEARCH ANALYST Telephone Check Up [facility] Oncology and Hematology - [place] [address] [address] [place] [id number] Saul Perez MD MGUS (monoclonal gammopathy of unknown significance) (Primary Dx) from Last 3 Months Family History Medical History Relation Name Comments Cancer Father Diabetes Mother pre diabetic Hypertension Mother Relation Name Status Comments Brother Alive Daughter 1 Alive Daughter 2 Alive Father Mother Alive Sister Alive Son Alive Social History Tobacco Use Types Packs/Day Years Used Date Smoking Tobacco: Former Cigarettes 1 40 Tobacco Cessation:Counseling Given: Not Answered Alcohol Use Standard Drinks/Week Comments No 0 (1 standard drink = 0.6 oz pur e alcohol) Comments No Sex and Gender Information Value Date Recorded Sex Assigned at Not on file Legal Sex Female 4:51 AM SALES RESEARCH ANALYST Gender Identity Not on file Sexual Orientation Not on file Last Filed Vital Signs Vital Sign Reading Time Taken Comments Blood Pressure 126/69 08/02/2024 1:21 PM SALES RESEARCH ANALYST Pulse 77 08/02/2024 1:21 PM SALES RESEARCH ANALYST Temperature 36.8 C (98.2 F) 08/02/2024 1:21 PM SALES RESEARCH ANALYST Respiratory Rate 15 08/02/2024 1:21 PM SALES RESEARCH ANALYST Oxygen Saturation 94% 08/02/2024 1:2 1 PM SALES RESEARCH ANALYST Inhaled Oxygen Concentration - - Weight 83.3 kg (183 lb 9.6 oz) 08/02/2024 1:21 PM SALES RESEARCH ANALYST patient verbally confimed that she is trying to lose weight Height 162.6 cm (5' 4 ) 06/01/2022 8:50 AM CDT Body Mass Index 31.51 06/01/2022 8:50 AM CDT Plan of Treatment Upcoming Encounters Date Type Department Care Team (Late st Contact Info) Description 09/05/2025 10:00 AM SALES RESEARCH ANALYST Office Visit [facility] Oncology and Hematology - [place] [address] [facility] [address] [place] [address] Saul Perez MD [address] [facility] [address] [place] [address] Health Maintenance Due Date Last Done Comments Pre-Diabetes and Diabetes Screening 1955 DTAP/TDAP/TD VACCINES (1 - Tdap) 1975 FIT-DNA Q 3 years 2001 FIT/FOBT Q 1 year 2001 Flex Sig/CT Colonography Q 5 years 2001 PNEUMOCOCCAL VACCINE 50+ YEA RS (1 of 1 - PCV) 2006 ZOSTER VACCINE (1 of 2) 2006 BREAST CANCER SCREENING 09/25/2014 09/25/2013, 09/23 INFLUENZA VACCINE (#1) 2024 COLORECTAL SCREENING 07/22/2030 07/22/2020 Colorectal Cancer Screening 07/22/2030 RSV VACCINE (60+ or ) (1 - 1-dose 75+ series) 2031 OSTEOPOROSIS SCREENING Completed 05/15/2021 Insurance MEDICARE PART A AND B [employer] OPEN [place] [facility] Address: [place] [id number] MEDICARE PART A AND B [employer] OPEN ACCESS Member Subscriber Plan / Payer (Ef fective 2024-Present) Name:Leydi Su Jarrett Relation to Subscriber:Self Name:Leydi Su Jarrett Payer ID:Not on file Type:HMO Address: [address] Advance Directives For more information, please contact: [phone] * Full Code (Latest Code Status on File) Date Activated Date Inactivated Comments 08/27/2014 7:51 AM 08/28/2014 8:33 AM * Full Code Date Activated Date Inactivated Comments 08/27/2014 5:59 AM 08/27/2014 7:51 AM Care Teams Knowledge Analyst Relationship Specialty Start Date End Date Yannick Umanzor DO [facility] [address] [address] PCP - General Internal Medicine 11/07/21
--- OUTSIDE RECORDS SUMMARY | 2024-11-09 09:46 | XMS_ITS | Continuity of Care Document ---
Author Organization [employer] Address [address] [place] [address] Phone Care Team Providers Care Medicine Teacher Name Role Phone Tracy Quiroz Unavailable Unavailab le Allergies, Adverse Reactions, Alerts Substance Reaction Status Criticality acyclovir Active No Information OMEPRAZOLE MAGNESIUM Active No Info rmation omeprazole Active No Information Medications Medication Instructions Dosage Effective Dates (start - stop) Status Comments FAMOTIDINE 40MG TABLETS TAKE 1 TABLET BY MOUTH DAILY - Active lamotrigine 200 mg tablet take 1 tablet by oral route 2 times every day 200 MG - Active lorazepam 2 mg tablet take 1 tablet by oral route 3 times every day as needed 2 MG - Active Protonix 40 mg tablet,delayed release take 1 tablet by oral route every day 40 MG - Active Dr. Damien Green duloxetine 60 mg capsule,delayed release take 1 capsule by oral route 2 times every day 60 MG - Active Abilify 30 mg tablet take 1 tablet by oral route every day 30 MG - Active Vitamin C 500 mg tablet take 1 capsule by oral route every day 1 capsule - Active carvedilol 6.25 mg tablet take 1 tablet by oral route 2 times every day with food 6.25 MG - Active trazodone 100 mg tablet take 2 tablet by oral route every day at bedtime - Active sertraline 100 mg tablet take 2 tablet by oral route every day 200 MG - Active iron 325 mg (65 mg iron) tablet take 1 tablet by oral route every day 325 MG - Active VITAMIN D3 (unknown strength) 1 Tablet daily Not Available - Active Procedures Procedure Date Colonoscopy, Flex; Diagnostic, With Endo Mucosal Resection COLONOSCOPY AND BIOPSY OFFICE [id number] Advance Directives Directive Yes / No Effective Date File Name No Information Encounters Encounter Description Practice Location Reason(s) For Visit Diagnoses Date Provider Providers Copied on Encounter [facility], [address], [place], [place], [address] , tel: [phone] [facility] No Information 1 Allan Molina. [address], [place], [id number] , [place]. tel: [phone] [facility], [address], [place], [place], [address] , [place] tel: [phone] [facility] No Information 1 Allan Molina. [address], [place], [address] , . tel: [phone] [facility], [address], [place], [place], [address] , [place] tel: [phone] [facility] No Information 0 Petershashi Worthingtony. [address] [facility], [place], [place], [address] , [place]. tel: [phone] Referring Provider: Megan Mcwilliams, [address] [facility] [address], [place], [address]. [phone] OFFICE [id number], [address], [place], [place], [address] , tel: [phone] [facility] GERD (chief complaint) Gastroesophageal reflux disease without esophagitisFamily history of colon cancer in father 0 Allan Molina. [address], [place], [address] , [place]. tel: [phone] Referring Provider: Megan Mcwilliams, [address] [facility] [address], [place], [address]. [phone] Family History Family Member Type Diagnosis Age At Onset No Information Payers Payer name Insurance type Covered green party ID Authoriza tion(s) [facility] [id number] Social History Type Description Quantity Date Captured Comments Sex Female Smoking Status No Information Chief Complaint And Reason For Visit No Information Reason For Referral Reason For Referral No Information History Of Present Illness Encounter Date Complaint History Of Prese nt Illness GERD 65 year old ashley winchester that presents to establish care. Father had colon cancer, denies family hx of IBD. Denies ETOH and tob use. She is on pantoprazole daily for several years. If misses a does will have problems with globus sensation and heartburn. She denies dysphagia and abdominal pain. Some rare constipation, denies blood in stools. Weight gain. Functional Status Date Functional Assessmen t No Information Instructions Date Instruction Additional Infor connie We will contact you to arrange a colonoscopyFurther recommendations to follow after the procedure Related to Family history of colon cancer in father We are prescribing p antoprazole once dailyAvoid trigger foodsFollow up in the office in one year or sooner for problems Related to Gastroesophageal reflux disease without esophagitis Assessments Type Assessment Date No Information Patient Care Teams Name Effective Dates (start - stop) Status Members No Information
--- OUTSIDE RECORDS SUMMARY | 2024-11-09 09:46 | XMS_ITS | Patient Health Record ---
Author Organization [facility] Address [address] [place], [place] [address] Care Team Providers Care Scheduling Administrator Name Role Phone DEE CAMACHO Unavailable [phone] Yannick Umanzor Unavailable Unavailable Allergies No Known Allergies Reason For Referral No Information Immunizations Vaccine Route Administration Date Status Comme nts Influenza, high dose seasonal Unknown 11/02/2024 Refuse d Pneumococcal conjugate PCV 13 Unknown 11/02/2024 Refuse d Vital Signs Height-cm 162.56 cm 11/02/2024 Weight-kg 136.08 kg 11/02/2024 Height 64.00 in 11/02/2024 Weight 300 lbs 11/02/2024 BMI 51.49 kg/m2 11/02/2024 Encounters Encounter Location Date Provider Diagnosis [facility] [place] [address] [place] [id number] 01/14/2024 DEE CAMACHO Fungal infection of nail B35.1 ; Pain in right toe(s) M79.674 ; Pain in left toe(s) M79.675 and Unspecified atherosclerosis of [place] arteries of extremities, bilateral legs I70.203 [facility] [place] [address] [place], [place] [id number] 11/02/2024 DEE CAMACHO Atherosclerosis of [place] arteries of extremities with intermittent claudication, bilateral legs I70.213 ; Onychomycosis B35.1 ; Pain in right toe(s) M79.674 and Pain in left toe(s) M79.675 [facility] [place] [address] [place], [place] [id number] 03/30/2024 DEE CAMACHO Fungal infection of nail B35.1 ; Pain in right toe(s) M79.674 ; Pain in left toe(s) M79.675 and Unspecified atherosclerosis of [place] arteries of extremities, bilateral legs I70.203 [facility] [place] [address] [place] [id number] 06/01/2024 DEE CAMACHO Atherosclerosis of [place] arteries of extremities with intermittent claudication, bilateral legs I70.213 ; Onychomycosis B35.1 ; Pain in right toe(s) M79.674 and Pain in left toe(s) M79.675 [facility] [place] [address] [place] [id number] 08/03/2024 DEE CAMACHO Atherosclerosis of [place] tribe arteries of extremities with intermittent claudication, bilateral legs I70.213 ; Onychomycosis B35.1 ; Pain in right toe(s) M79.674 and Pain in left toe(s) M79.675 Assessments Encounter Date Diagnosis (ICD Code) Assessment Notes Treatment Notes Treatment Clinical Notes Section Notes 01/14/2024 Fungal infection of nail (ICD-10 - B35.1) 03/30/2024 Fungal infection of nail (ICD-10 - B35.1) 06/01/2024 Atherosclerosis of [place] tribe arteries of extremities with intermittent claudication, bilateral legs (ICD-10 - I70.213) 06/01/2024 Onychomycosis (ICD-10 - B35.1) Nails 1-5 Bilateral were debrided extensively with nail nippers and emery board, reducing length and girth to pink healthy tissue with any subungual debris and necrotic tissue removed 08/03/2024 Atherosclerosis of [place] tribe arteries of extremities with intermittent claudication, bilateral legs (ICD-10 - I70.213) 11/02/2024 Atherosclerosis of [place] tribe arteries of extremities with intermittent claudication, bilateral legs (ICD-10 - I70.213) 11/02/2024 Onychomycosis (ICD-10 - B35.1) Nails 1-5 Bilateral were debrided extensively with nail nippers and emery board, reducing length and girth to pink healthy tissue with any subungual debris and necrotic tissue removed 03/30/2024 Pain in right toe(s) (ICD-10 - M79.674) 08/03/2024 Onychomycosis (ICD-10 - B35.1) Nails 1-5 Bilateral were debrided extensively with nail nippers and emery board, reducing length and girth to pink healthy tissue with any subungual debris and necrotic tissue removed 06/01/2024 Pain in right toe(s) (ICD-10 - M79.674) 01/14/2024 Pain in right toe(s) (ICD-10 - M79.674) 01/14/2024 Pain in left toe(s) (ICD-10 - M79.675) 06/01/2024 Pain in left toe(s) (ICD-10 - M79.675) 08/03/2024 Pain in right toe(s) (ICD-10 - M79.674) 03/30/2024 Pain in left toe(s) (ICD-10 - M79.675) 11/02/2024 Pain in right toe(s) (ICD-10 - M79.674) 11/02/2024 Pain in left toe(s) (ICD-10 - M79.675) 08/03/2024 Pain in left toe(s) (ICD-10 - M79.675) 03/30/2024 Unspecified atherosclerosis of [place] tribe arteries of extremities, bilateral legs (ICD-10 - I70.203) 01/14/2024 Unspecified atherosclerosis of [place] tribe arteries of extremities, bilateral legs (ICD-10 - I70.203) 01/14/2024 Other Nails 1-5 Bilateral were debrided extensively with nail nippers and emery board, reducing length and girth to pink healthy tissue with any subungual debris and necrotic tissue removed 03/30/2024 Other Nails 1-5 Bilateral were debrided extensively with nail nippers and emery board, reducing length and girth to pink healthy tissue with any subungual debris and necrotic tissue removed Plan Of Treatment Next Appt Details Provider Name:DEE LISA, 01/04/2025 08:50:00 AM, [address], [address], [id number], Insurance Providers Payer Name Payer Address Payer Phone Subscriber Number Group Number Insured Name Patient Relationship to Insured Coverage Start Date Coverage End Date [employer] PPO [address] [place], [place] [id number] VALE ARANDA Self - patient is the insured Medicare Part B [place] [address] [place] [address] [id number] VALE PFEIFFER Self - patient is the insured Medical (General) History Medical History History ICD Code acid reflux artificial joint fibromyalgia GERD Respiratory disease Sleep apnea Back Trouble Psychiatric Disorder hypertension Surgical History Surgery Date(Month/Year) Brain surgery Right foot surgery Right wrist surgery Bladder surgery
--- OUTSIDE RECORDS SUMMARY | 2024-11-09 09:46 | XMS_ITS | Encounter Summary ---
Author Organization [facility] Address [address] [place] [address] [address] Team [address] Care Road Oiling Truck Driver Name Role Phone JaviersvetlanaYannick talleyian Primary Care Provider Encounter Details Date Type Department Care Team (Late st Contact Info) Description 07/30/2005 Outpatient Historical [facility] Nikolas Bowie Jr., MD [facility] [place] [address] Er, Authorized P NO ADDRESS ON FILE UNSPECIFIED VIRAL INFECTION (Primary Dx) Social History Tobacco Use Types Packs/Day Years Used Date Smoking Tobacco: Never Assessed Comments Unknown Sex and Gender Information Value Date Recorded Sex Assigned at Not on file Legal Sex Female 4:51 AM OIL BURNER REPAIRER Gender Identity Not on file Sexual Orientation Not on file documented as of this encounter Plan of Treatment Upcoming Encounters Date Type Department Care Team (Late st Contact Info) Description 09/05/2025 10:00 AM OIL BURNER REPAIRER Office Visit [facility] Oncology and Hematology - [place] [address] [facility] [address] [place] [address] Saul Perez MD [address] [facility] [address] [place] [address] documented as of this encounter Procedures Procedure Name Priority Date/Time Associated Diagnosis Comments CBC WITH DIFFERENTIAL Routine 07/30/2005 4:06 PM OIL BURNER REPAIRER CBC WITH DIFFERENTIAL Routine 07/30/2005 4:06 PM OIL BURNER REPAIRER documented in this encounter Results * (ABNORMAL) CBC WITH DIFFERENTIAL (07/30/2005 4:06 PM OIL BURNER REPAIRER) Pathologist [facility] NEUTROPHILS 83(H) 45 - 70 % INTERFAC E SYSTEM LYMPHOCYTES 11(L) 16 - 45 % INTERFAC E SYSTEM MONOCYTES 5 3 - 13 % INTERFACE SYSTEM EOSINOPHILS 1 0 - 7 % INTERFAC E SYSTEM BASOPHILS 0 0 - 2 % INTERFACE SYSTEM NEUTROPHIL ABSOLUTE 10.68(H) 1.90 - 7.00 K/uL INTERFACE SYSTEM LYMPHOCYTE ABSOLUTE 1.39 0.70 - 4.50 K/uL INTERFACE SYSTEM MONOCYTE ABSOLUTE 0.70 0.10 - 1.30 K/uL INTERFACE SYSTEM EOSINOPHIL ABSOLUTE 0.11 0.00 - 0.70 K/uL INTERFACE SYSTEM BASOPHILS ABSOLUTE 0.03 0.00 - 0.20 K/uL INTERFACE SYSTEM 07/30/2005 4:06 PM OIL BURNER REPAIRER Historical Provider HEMATOLOGY ORDERABLES Final Result INTERFACE SYSTEM Refer to clinic/hospital department * (ABNORMAL) CBC WITH DIFFERENTIAL (07/30/2005 4:06 PM OIL BURNER REPAIRER) Pathologist [facility] WBC 12.9(H) 4.0 - 9.8 K/uL INTERFACE SYSTEM RBC 4.78 3.90 - 4.90 M/uL INTERFACE SYSTEM HEMOGLOBIN 15.1(H) 11.8 - 14.8 g/dL INTERFACE SYSTEM HEMATOCRIT 43.3 35.5 - 44.0 % INTERFACE SYSTEM MCV 90.6 82.0 - 99.0 fL INTERFACE SYSTEM MCH 31.6 27.2 - 32.6 pg INTERFACE SYSTEM MCHC 34.9 31.5 - 35.5 % INTERFACE SYSTEM RDW 12.9 11.5 - 14.5 % INTERFACE SYSTEM RDW-STDEV 42.9 37.1 - 48.7 fL INTERFACE SYSTEM PLATELETS 339 140 - 350 K/uL INTERFACE SYSTEM MPV 9.3 9.3 - 12.4 fL INTERFACE SYSTEM 07/30/2005 4:06 PM OIL BURNER REPAIRER us Historical Provider HEMATOLOGY ORDERABLES Final Result INTERFACE SYSTEM Refer to clinic/hospital department documented in this encounter Visit Diagnoses Diagnosis Unspecified viral infection, in conditions classified elsewhere and of unspecified site- Primary documented in this encounter Care Teams Road Oiling Truck Driver Relationship Specialty Start Date End Date Yannick Umanzor DO [address] [facility] [address] [place] [address] PCP - General Internal Medicine 11/07/21 documented as of this encounter
--- OUTSIDE RECORDS SUMMARY | 2024-11-09 09:46 | XMS_ITS | Continuity of Care Document ---
Author Organization [facility] Address [address] [place] [address] [place] [address] Phone Care Team Providers Care Warehouse Handler Name Role Phone [facility] Unavailable Unavail able Joshua Del Toro Unavailable Unavailable Procedures Procedure Date TF Polycarb Sphcyl [place] To +/-4d .12-2d Vision Svcs Frames Purchases Anti-reflective Coating Prism Lens/es Eye Exam & Treatment Refraction Advance Directives Directive Yes / No Effective Date File Name No Information Encounters Encounter Description Practice Location Reason(s) For Visit Diagnoses Date Provider Providers Copied on Encounter [facility], [address] [place] [address] [address], [place], [place], [id number], [place] tel:[phone] [facility] No Information Dec-2 4200 9 [facility] . [address] [place] [address], [facility] [address], [place], [address], [place]. tel:[phone] Referring Provider: Herve Esparza, [address] [place] [address] [address], [place], [address]. tel:[phone] sulting Provider: Joshua Del Troo, [address] [place] [address], [place], [address]. tel:[phone] [facility], [address] [place] [address] [address], [place], [place], [address], [place] tel:[phone] [facility] No Information Dec-2 2-200 9 Arteaga NASIM Edgar. [address] [place] [address] Dr, [address], [place], [address], [place]. tel:[phone] Family History Family Member Type Diagnosis Age At Onset No Information Payers Payer name Insurance type Covered constitution party ID Authoriza tikenji(s) P [id number] Social History Type Description Quantity Date Captured Comments Sex Female Smoking Status No Information Chief Complaint And Reason For Visit No Information Reason For Referral Reason For Referral No Information History Of Present Illness Encounter Date Complaint History Of Prese nt Illness No Information Functional Status Date Functional Assessmen t No Information Instructions Date Instruction Additional Infor mation No Information Assessments Type Assessment Date No Information Patient Care Teams Name Effective Dates (start - stop) Status Members No Information
--- OUTSIDE RECORDS SUMMARY | 2024-11-09 09:46 | XMS_ITS | Clinical Summary ---
Author Organization [facility] [employer] Address [address] [place] [address] Phone Care Team Providers Care Tool Room Gear Machine Operator Name Role Phone JavierYannick price Primary Care Provider [phone] Allergies Active Allergy Reactions Criticality Noted Date Comments Acyclovir Hives High 08/17/2014 Omeprazole Other (see comments),Shortness of breath High 08/17/2014 hyperventilation hyperventilate Medications Medication Sig Dispensed Refills Start Date End Date Status ARIPiprazole (Abilify) 30 MG tablet Take by mouth daily 06/19/2020 Active traZODone (DESYREL) 100 MG tablet Take 100 mg by mouth every night 06/19/2020 Active sertraline (ZOLOFT) 100 MG tablet Take 100 mg by mouth every night 06/19/2020 Active senna (SENOKOT) 8.6 MG tablet Take by mouth Active pantoprazole (PROTONIX) 40 MG EC tablet Take 20 mg by mouth daily 06/19/2020 Active lamoTRIgine (LaMICtal) 200 MG tablet Take 75 mg by mouth 2 times daily Active DULoxetine (CYMBALTA) [address] capsule Take 20 mg by mouth 2 (two) times a day 05/07/2017 Active cholecalciferol (VITAMIN D-3) 25 MCG (1000 UT) tablet Take 1 tablet by mouth 1 (one) time each day Active carvedilol (COREG) 6.25 MG tablet Take 3.125 mg by mouth every 12 hours 06/19/2020 Active ketorolac (TORADOL) 10 MG tablet TAKE 1 TABLET BY MOUTH 4 TIMES DAILY NEEDED 01/31/2022 Active oxybutynin XL (DITROPAN-XL) 10 MG 24 hr tablet 09/05/2021 Active ergocalciferol (VITAMIN D-2) 1.25 MG (52692 UT) capsule 12/12/2019 Active Carbonyl Iron 45 MG tablet 45 mg Active amLODIPine (NORVASC) 5 MG tablet 08/13/2021 Active albuterol HFA (PROVENTIL HFA) 108 (90 Base) MCG/ACT inhaler 10/02/2021 Active Active Problems Problem Noted Date Diagnosed Date Monoclonal gammopathy of uncertain significance 11/07/2021 Bipolar disorder 03/18/2021 Family history of malignant neoplasm of digestiv e organ 03/18/2021 Gastro-esophageal reflux disease without esophag itis 03/18/2021 Incontinence of feces 03/18/2021 Menopause 03/18/2021 Postmenopausal atrophic vaginitis 03/18/2021 Urge incontinence of urine 03/18/2021 Body mass index 40+ - severely obese 02/09/2020 Diastolic dysfunction 02/09/2020 Essential hypertension 02/09/2020 Ex-smoker 02/09/2020 Nonrheumatic aortic valve stenosis 02/09/2020 Obstructive sleep apnea syndrome 02/09/2020 Immunizations Name Administration Dates Next Due Sars-cov-2, Unspecified 10/29/2020 Family History Medical History Relation Comments Colon cancer Father Diabetes mellitus Mother Hypertension Mother Relation Status Comments Father Mother Paternal Grandfather Social History Tobacco Use Types Packs/Day Years Used Date Smoking Tobacco: Former Cigarettes 0.5 40 Smokeless Tobacco: Never Alcohol Use Standard Drinks/Week Comments Never 0 (1 standard drink = 0.6 oz pur e alcohol) Sex and Gender Information Value Date Recorded Sex Assigned at Not on file Gender Identity Not on file Sexual Orientation Not on file Last Filed Vital Signs Vital Sign Reading Time Taken Comments Blood Pressure 134/74 03/04/2022 1:43 PM CDT Pulse - - Temperature 37.9 C (100.2 F) 03/04/2022 1:43 PM CDT Respiratory Rate 18 03/04/2022 1:43 PM CDT Oxygen Saturation - - Inhaled Oxygen Concentration - - Weight 129 kg (285 lb 6.4 oz) 03/04/2022 1:43 PM CDT Height 162.6 cm (5' 4 ) 03/04/2022 1:43 PM CDT Body Mass Index 48.99 03/04/2022 1:43 PM CDT Plan of Treatment Health Maintenance Due Date Last Done Comments Pneumococcal PPSV23/PCV13 65 + Years / Low and Medium Risk (1 of 4 - PCV) 2021 Influenza Vaccine (#1) 2024 Care Teams Tool Room Gear Machine Operator Relationship Specialty Start Date End Date Yannick Umanzor DO [address] [place] [address] PCP - General Internal Medicine 01/27/21
--- OUTSIDE RECORDS SUMMARY | 2024-11-09 09:46 | XMS_ITS | Clinical Summary ---
Author Organization [facility] Address [facility] [place] [address] Care Team Providers Care Molasses Coloring Operator Name Role Phone Unavailable Primary Care Provider Unavailabl e Social History Tobacco Use Types Packs/Day Years Used Date Smoking Tobacco: Never Assessed Comments Unknown Sex and Gender Information Value Date Recorded Sex Assigned at Not on file Legal Sex Female 7:04 PM CDT Gender Identity Not on file Sexual Orientation Not on file Plan of Treatment Health Maintenance Due Date Last Done Comments Colorectal Cancer Screening Colonoscopy (10 Years) 1956 Hepatitis C 1974 DTaP, Tdap and Td Vaccines ( 1 - Tdap) 1975 Mammogram Screening 1996 Zoster Vaccines (1 of 2) 2006 Dexa Scan (General) 2021 Pneumococcal Vaccine: 65+ Ye ars (1 of 1 - PCV) 2021 COVID-19 Vaccine ( - 2023-2 5 season) 2024 Influenza Adult (#1) 2024 RSV Immunization or 60+ Years (1 - 1-dose 75+ series) 2031 Meningococcal B Vaccine Aged Out No l onger eligible based on patient's age to complete this topic Meningococcal Vaccine Aged Out No mary kate lidya eligible based on patient's age to complete this topic RSV Immunizations Under 20 Months Aged Out No longer eligible based on patient's age to complete this topic
--- OUTSIDE RECORDS SUMMARY | 2024-11-09 09:47 | XMS_ITS ---
Author Organization [facility] Address [address] [facility] [address] [place], [place] [id number] Care Team Providers Care Bank Credit Card Collection Clerk Name Role Phone DEE GEE Unavailable [phone] Yannick Umanzor Unavailable Unavailable REASON FOR VISIT *General care Encounters Encounter Location Date Provider Diagnosis [facility] [place] [address] [place], [place] [id number] 06/01/2024 DEE GEE Atherosclerosis of ekl[place]na arteries of extremities with intermittent claudication, bilateral legs I70.213 ; Onychomycosis B35.1 ; Pain in right toe(s) M79.674 and Pain in left toe(s) M79.675 Assessments Encounter Date Diagnosis (ICD Code) Assessment Notes Treatment Notes Treatment Clinical Notes Section Notes 06/01/2024 Atherosclerosis of ekl[place]na arteries of extremities with intermittent claudication, bilateral legs (ICD-10 - I70.213) 06/01/2024 Onychomycosis (ICD-10 - B35.1) Nails 1-5 Bilateral were debrided extensively with nail nippers and emery board, reducing length and girth to pink healthy tissue with any subungual debris and necrotic tissue removed 06/01/2024 Pain in right toe(s) (ICD-10 - M79.674) 06/01/2024 Pain in left toe(s) (ICD-10 - M79.675) Plan Of Treatment Treatment Notes Assessment Notes Onychomycosis Nails 1-5 Bilateral were debrided extensively with nail nippers and emery board, reducing length and girth to pink healthy tissue with any subungual debris and necrotic tissue removed Next Appt Details Follow Up: 9 weeks, Reason: Provider Name:DEE LISA, 01/04/2025 08:50:00 AM, [address], [facility], [place], [place], [id number], Progress Notes * VALE PFEIFFERDOB:1955 (69 yo F)Acc No.[id number]:06/01/2024 Patient: VALE BENJAMIN Provider: Melisa Gee DPM :1955 A ge:69 Y S ex:Female Date:06/01/2024 Address:[address] [place] [address] Subjective: * Chief Complaints: * * General [...] Date last seen by Dr. Umanzor was 04/2024. Initials sea. * Medical History: * Surgical History: B rain surgery Right foot surgery Right wrist surgery Bladder surgery * Hospitalization/Major Diagno stic Procedure: * Family History: F ather: PRN - Father: :: Cancer,,known absent . M other: PRN - Mother: :: Hypertension,,known absent , :: Anemia,,known absent . * Social History: M igrated Social History: M igrated Social History: Smoking Status : Former tobacco user , History of tobacco use :. * Medications: N one Objective: * Vitals: [...] B35.1 (Primary) 2 . A therosclerosis of eklutna arteries of extremities with intermittent claudication, bilateral legs - I70.213 3 . P ain in right toe(s) - M79.674 4 . P ain in left toe(s) - M79.675 Plan: * Treatment: * Procedure Codes: * Follow Up: 9 weeks * Billing Information: * Visit Code: 08495 Office Visit, Est Pt., Level 3. * Procedure Codes: * Sign off status: Completed true * Provider: Melisa Gee DPM Date: Generated for Dina palacio/Jono/Radha on: 0 11/09/2024 09:46 AM CDT History and Physical Notes * [...] Date last seen by Dr. Umanzor was 04/2024. Initials sea Examination Category Sub-Category Detail Notes [...]
--- NOTE | 2024-11-09 09:55 | ED_ITS ---
HPI - Fall General Chief Complaint: Fall Stated Complaint: weakness Time Seen by Provider: 11/09/24 08:59 Source: patient Mode of arrival: ambulatory Limitations: no limitations History of Present Illness HPI Narrative: Patient is a 69-year-old female who presents the ED with report of bilateral knee pain. Patient reports her legs gave out on her today, causing her to fall. She states she feels like she has no strength in her legs. She states she has had 8 falls in the last 10 days due to her legs giving out on her. She has history of left knee replacement and is awaiting right knee replacement. Has previously seen Dr. Ray for this. Has been to PT several times as well. Denies injury from the fall today. States she cannot go on living like this. Denies numbness. Has lymphedema of BLE, denies significant changes in swelling. Related Data Home Medications ?Medication ?Instructions ?Recorded ?Confirmed ?Last Taken ?Type duloxetine 60 mg capsule,delayed 60 mg PO BID 01/21/21 09/12/24 Unknown History release (Cymbalta) cholecalciferol (vitamin D3) 250 250 mcg PO DAILY 01/02/22 09/12/24 Unknown History mcg (10,000 unit) capsule trazodone 100 mg tablet 200 mg PO QHS PRN Insomnia 01/02/22 09/12/24 Unknown History ascorbic acid (vitamin C) 1,000 mg 2 g PO DAILY 09/08/23 09/12/24 Unknown History chewable tablet aspirin 81 mg tablet,delayed 81 mg PO DAILY 09/08/23 09/12/24 Unknown History release bupropion HCl 150 mg 24 hr tablet, 150 mg PO HS 09/08/23 09/12/24 Unknown History extended release carvedilol 12.5 mg tablet 12.5 mg PO BID 09/08/23 09/12/24 Unknown History ferrous sulfate 325 mg (65 mg 325 mg PO DAILY 09/08/23 09/12/24 Unknown History iron) tablet lamotrigine 200 mg tablet 200 mg PO BID 09/08/23 09/12/24 Unknown History lorazepam 2 mg tablet 2 mg PO TID 09/08/23 09/12/24 Unknown History oxybutynin chloride 10 mg 10 mg PO DAILY 09/08/23 09/12/24 Unknown History tablet,extended release 24 hr sertraline 100 mg tablet 100 mg PO BID 09/08/23 09/12/24 Unknown History vitamin B complex 2 tablet PO DAILY 09/08/23 09/12/24 Unknown History varenicline tartrate 0.03 mg/spray 0.03 mg intranasal BID 03/14/24 09/12/24 Unknown History metered nasal spray (Tyrvaya) Allergies Allergy/AdvReac Type Severity Reaction Status Date / Time acyclovir (From Zovirax) Allergy Severe Hives Verified 11/09/24 08:43 Iodinated Contrast Media Allergy Intermediate Rash Verified 11/09/24 08:43 omeprazole (From Prilosec) AdvReac Intermediate hyperventil Verified 11/09/24 08:43 ate Review of Systems 2 Review of Systems: All systems reviewed & are unremarkable except as noted in HPI. All systems reviewed & are unremarkable except as noted in HPI and below PMFSH Past Medical History Medical History Lymphedema Dysuria Fracture of left upper extremity Distal radius fracture, left July 2020 Shortness of Breath Decreased diffusion capacity History of tobacco abuse Exercise hypoxemia Nocturnal oxygen desaturation Brain tumor HTN (hypertension) Body mass index (BMI) of 40.1-44.9 in adult Morbid obesity with BMI of 45.0-49.9, adult Obstructive sleep apnea on CPAP Bipolar 1 disorder SIMEON (obstructive sleep apnea) With CPAP use GERD (gastroesophageal reflux disease) Depression Anxiety Surgical History Surgical History History of bladder suspension procedure March 2017 Hx of tonsillectomy History of brain surgery 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 She has 3 children. She is disabled. She quit smoking 5 years ago. The patient denies any marijuana alcohol or illicit drugs. Her is a durable power special assets officer for healthcare. Primary care physician: Dr. Yannick Umanzor Code status: Full code Smoking packs per day: 1 Smoking cigarettes per day: 20.0 Years smoked: 40 Smoking pack-years: 40.00 Smoking status: Former smoker Tobacco type: cigarettes Second hand tobacco smoke exposure: No Smoking end date: 08/23/14 Alcohol intake: never Substance use: never Substance use type: does not use Do You Feel Safe in your Home?: Yes Lack of Transportation: No Lack of Food: Never True Current Housing: I Have Housing Concerned About Future Housing: No Difficulty Paying Gas/Electric Bills: No Difficulty Paying for Meds: No Currently Unemployed: No Education: Associate Degree Difficulty w/ Childcare or Family Care: No Living arrangements: with family Additional living arrangements comments: HUSB Occupation/Education: retired Additional occupation/education comments: 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 Gender identity (if verbalized by the patient): Female Spiritual care concerns: No Exam 2 Narrative: GENERAL: Well appearing, morbidly obese with BMI of 47.4, non-toxic, in no acute distress. HEAD: Normocephalic, atraumatic. RESPIRATORY: Airway patent, respirations nonlabored. CARDIOVASCULAR: Regular rate and rhythm. Pedal pulses intact. MUSCULOSKELETAL: Moves all extremities. No gross deformities. Diffuse tenderness throughout bilateral anterior knees. Diffuse nonpitting swelling and venous stasis changes/scaling of skin to bilateral lower legs. Tenderness throughout calves bilaterally. Sensation intact. No evidence of infection. SKIN: Warm, dry, normal color. NEURO: A&O X3. Speech clear. Cranial nerves II-XII grossly intact. No ataxic movements. PSYCHIATRIC: Appropriate mood and affect. Normal interaction. Course Vital Signs Vital signs: Vital Signs Temperature 98.3 F 11/09/24 08:35 Pulse Rate 80 11/09/24 08:35 Respiratory Rate 18 11/09/24 08:35 Pulse Oximetry 96 11/09/24 08:35 Oxygen Delivery Room Air 11/09/24 08:35 Temperature 98.3 F 11/09/24 08:35 Pulse Rate 75 11/09/24 17:32 Respiratory Rate 18 11/09/24 17:32 Blood Pressure 114/51 L 11/09/24 17:32 Pulse Oximetry 92 11/09/24 17:32 Oxygen Delivery Room Air 11/09/24 14:36 MDM - Fall MDM Narrative Medical decision making narrative: Patient presented to ED with multiple falls, weakness of BLE, pain to bilateral knees. Vital signs are stable upon arrival. Patient is neurovascularly intact. X-rays of bilateral knees without acute fracture or traumatic findings. Does show osteo arthritis of right knee. Left arthroplasty in place. Venous Doppler ultrasound BLE negative for DVT. Laboratory studies are fairly unremarkable. BNP is mildly elevated, though patient reports swelling is chronic, denies shortness of breath or respiratory issues. Echo from 2 years ago in records with some evidence of mild valvular disease, but no significant systolic or diastolic dysfunction. Patient given pain medication in the ED. Attempted to have patient ambulate, however she was unable to bear weight or even take a few steps with a walker. Requiring 2 person assist. [place] very weak, unsteady, at risk for further falls/injury. Discussed case with care coordination, attempting to find patient rehab placement at [facility]. Patient is agreeable to this, wanting rehab. Waiting to hear back if there is a bed available. PT/OT orders placed. Patient was evaluated in the ED by PT/OT. Was determined to meet criteria for acute rehab. [facility] does have a bed available. Care coordination faxing forms. Patient received bed at [facility]. Awaiting transport. No further events throughout ED stay. Medical Records Attestation: I reviewed the patient's medical records. Lab Data Attestation: I reviewed the patient's lab results. 11/09/24 10:51 11/09/24 10:51 Labs: Lab Results 11/09/24 Range/Units 10:51 WBC 11.9 H (4.5-10.0) K/mm3 RBC 4.25 (4.2-5.4) M/mm3 Hgb 13.6 (12.0-15.0) g/dL Hct 40.9 (37.0-47.0) % MCV 96.2 (80-100) fl MCH 32.0 (26-34) pg MCHC 33.3 (32-36) g/dl RDW 13.5 (11.5-14.5) % Plt Count 214 (150-375) k/mm3 MPV 9.1 (7.4-10.4) fl Immature Gran % (Auto) 0.6 H (0-0.5) % Neut % (Auto) 74.9 H (45.5-73.1) % Lymph % (Auto) 13.9 L (18.3-44.2) % [place] % (Auto) 8.8 H (2.6-8.5) % Eos % (Auto) 1.4 (0-4.4) % Baso % (Auto) 0.4 (0.2-1.2) % Lymph # (Auto) 1.66 (0.9-3.2) K/mm3 [place] # (Auto) 1.1 H (0.1-0.6) K/mm3 Eos # (Auto) 0.2 (0-0.3) K/mm3 Baso # (Auto) 0.1 (0.0-0.1) K/mm3 Abs Immat Gran (auto) 0.07 H (0.00-0.031) K/mm3 Absolute Neuts (auto) 8.9 H (1.3-6.7) K/mm3 Absolute Nucleated RBC 0.000 (0.0-0.012) K/mm3 Nucleated RBC % 0.0 (0.0-0.2) % Sodium 137 (137-145) mmol/L Potassium 3.5 (3.4-5.0) mmol/L Chloride 98 (98-107) mmol/L Carbon Dioxide 35 H (22-30) mmol/L Anion Gap 4 (4-12) mmol/L BUN 16 (7-17) mg/dL Creatinine 1.38 H (0.7-1.0) mg/dL Estim Creat Clear Calc 46 ml/min Estimated GFR 38 L (59 - ) Glucose 101 (65-110) mg/dL Calcium 9.0 (8.4-10.2) mg/dL Magnesium 1.8 (1.6-2.3) mg/dL NT-Pro-B Natriuret Pep 3050 H (19.9-100) pg/mL Imaging Data Attestation: I personally reviewed and interpreted this imaging study as follows: Radiologist's impression: ITS Impressions Knee X-Ray 11/09/24 09:57 IMPRESSION: No acute osseous abnormality right knee. Moderate to severe osteoarthritic changes. Knee X-Ray 11/09/24 10:02 IMPRESSION: No acute osseous abnormality left knee. Total knee arthroplasty. Venous Doppler Study 11/09/24 10:50 IMPRESSION: 1. No deep venous thrombosis in either lower limb. Discharge Plan Discharge Clinical Impression: Weakness of both legs, Difficulty in walking Bilateral knee pain Qualifiers: Chronicity: acute Qualified Code(s): M25.561 - Pain in right knee; M25.562 - Pain in left knee Osteoarthritis of right knee Qualifiers: Osteoarthritis type: primary Qualified Code(s): M17.11 - Unilateral primary osteoarthritis, right knee Patient Disposition: Inpatient Rehab Facility Condition: Stable Patient Language: Setswana Prescriptions: No Action duloxetine [Cymbalta] 60 mg capsule,delayed release(DR/EC) 60 mg PO BID Tyrvaya 0.03 mg/spray spray, metered, non-aerosol 0.03 mg intranasal BID Rx Instructions: administer into each nostril; approximately 12 hours apart cholecalciferol (vitamin D3) 250 mcg (10,000 unit) capsule 250 mcg PO DAILY trazodone 100 mg tablet 200 mg PO QHS PRN (Reason: Insomnia) carvedilol 12.5 mg tablet 12.5 mg PO BID sertraline 100 mg tablet 100 mg PO BID ferrous sulfate 325 mg (65 mg iron) Tablet 325 mg PO DAILY ascorbic acid (vitamin C) 1,000 mg Tablet,Chewable 2 g PO DAILY vitamin B complex Tablet,Chewable 2 tablet PO DAILY lorazepam 2 mg tablet 2 mg PO TID lamotrigine 200 mg tablet 200 mg PO BID oxybutynin chloride 10 mg tablet extended release 24hr 10 mg PO DAILY bupropion HCl 150 mg tablet extended release 24 hr 150 mg PO HS aspirin 81 mg Tablet,Delayed Release (Dr/Ec) 81 mg PO DAILY (DME) Overnight Ox See Rx Instructions .Route .MEDSUPPLY Qty: 1 0RF Rx Instructions: Overnight Oximetry 4 L/Min BIPAP DX Code: G47.33 Length of Need: Lifetime DME:ABE Fleming: [id number] albuterol sulfate 90 mcg/actuation HFA aerosol inhaler 1 - 2 puff inhalation Q4-6H PRN (Reason: shortness of breath or wheezing) Qty: 8.5 2RF amlodipine 5 mg tablet 5 mg PO HS Qty: 90 1RF hydrochlorothiazide 12.5 mg tablet 12.5 mg PO QAM Qty: 90 1RF pantoprazole 40 mg tablet,delayed release (DR/EC) See Rx Instructions .ROUTE .COMPLEX Qty: 90 1RF Dose Instruction: TAKE 1 TABLET BY MOUTH EVERY DAY IN THE MORNING Rx Instructions: TAKE 1 TABLET BY MOUTH EVERY DAY IN THE MORNING Wegovy 1 mg/0.5 mL pen injector 1 mg subcut Q7D Qty: 2 0RF Follow-up/Referrals: Yannick Umanzor, [Primary Care Provider] -
[2024-11-09] MEDS: KETOROLAC 30 MG/ML VIAL (*BKC) IM (10:33)
[2024-11-09] MEDS: HYDROcodone/acetaminophen (*CRX) 5-325 MG TABLET 1 TAB PO (10:34)
[2024-11-09 10:45] VITALS: BP 142/92; PULSE 83; RESP 18; O2SAT 95
[2024-11-09 11:01] LABS: Basophils Absolute Auto 0.1 K/mm3 (0.0-0.1); Basophils Percent Auto 0.4 % (0.2-1.2); Eosinophils Absolute Auto 0.2 K/mm3 (0-0.3); Eosinophils Percent Auto 1.4 % (0-4.4); Hematocrit 40.9 % (37.0-47.0); Hemoglobin 13.6 g/dL (12.0-15.0); Immature Granulocyte Absolute 0.07 K/mm3 (0.00-0.031); Immature Granulocyte Percent A 0.6 % (0-0.5); Lymphocytes Absolute Auto 1.66 K/mm3 (0.9-3.2); Lymphocytes Percent Auto 13.9 % (18.3-44.2); Mean Corpuscular HGB Conc 33.3 g/dl (32-36); Mean Corpuscular Volume 96.2 fl (80-100); Mean Platelet Volume 9.1 fl (7.4-10.4); Monocytes Absolute Auto 1.1 K/mm3 (0.1-0.6); Monocytes Percent Auto 8.8 % (2.6-8.5); Neutrophils Absolute Auto 8.9 K/mm3 (1.3-6.7); Neutrophils Percent Auto 74.9 % (45.5-73.1); Platelet Count Result 214 k/mm3 (150-375); Red Blood Count 4.25 M/mm3 (4.2-5.4); Red Cell Distribution Width 13.5 % (11.5-14.5); White Blood Count 11.9 K/mm3 (4.5-10.0)
[2024-11-09 11:21] LABS: NT Pro B Type Natriuretic Pept 3050 pg/mL (19.9-100)
[2024-11-09 11:50] LABS: Anion Gap 4 mmol/L (4-12); Blood Urea Nitrogen 16 mg/dL (7-17); Carbon Dioxide 35 mmol/L (22-30); Chloride 98 mmol/L (98-107); Estimated CRCL calculation 46 ml/min; Estimated Glomerular Filt Rate 38; Glucose 101 mg/dL (65-110); Magnesium 1.8 mg/dL (1.6-2.3); Potassium 3.5 mmol/L (3.4-5.0); Sodium 137 mmol/L (137-145)
--- NOTE | 2024-11-09 12:26 | PC.NURSE ---
Attempted to ambulate pt per EDP. Pt unable to ambulate safely, high fall risk. EDP LAMAR Guerra made aware.
--- NOTE | 2024-11-09 12:43 | PCCCNOTE ---
1243-Called to the ED regarding placement into facility for rehabilitation. Spoke to the pt and her . Stated she keeps falling and is unable to ambulate safely in her home. States she has had a knee replacement in the past, needs the other one done but has not lost enough weight to get the surgery. In the mean time has over commentated and both knees are now bad. Spoke to inhouse PT and they stated they will try to get an eval LAKSHMI and faxed a partial referral to [facility] after a VM was left pending the OT/PT eval notes. ED charge nurse updated.-lois
--- NOTE | 2024-11-09 13:36 | PCCCNOTE ---
4112-Received a call from Charisse with [facility] she requested the status of the PT/OT eval, Ht/Wt of the pt and stated she would pass the information to her nurse. Did let her know the OT/PT evals are still pending in the ED.-lois.
[2024-11-09 13:40] VITALS: BP 114/75; PULSE 77; RESP 16; O2SAT 98
--- NOTE | 2024-11-09 15:00 | PC.NURSE ---
PT at bedside.
--- NOTE | 2024-11-09 15:03 | PCCCNOTE ---
[id number]-Received an incoming call from Charisse with [facility]. She stated so far the pt would be acceptable pending PT/OT eval. Also to please let the pt know she would need to bring her own rx nasal spray if accepted. PT/OT evals completed and waiting for them to be documented for faxing.-lois.
--- NOTE | 2024-11-09 15:32 | PCCCNOTE ---
4893-Faxed Completed PT/OT evals to [facility] and completed the PASRR with assessment ID [id number].-lois
--- NOTE | 2024-11-09 16:10 | PCCCNOTE ---
1610-Spoke with Charisse with [facility], stated they received the PT/OT notes and will be able to accept in 30 minutes. ED charge nurse made aware.-lois.
[2024-11-09 17:32] VITALS: BP 114/51; PULSE 75; RESP 18; O2SAT 92
--- NOTE | 2024-11-09 19:22 | PC.NURSE ---
[facility] notified of departure from our facility.
[2024-11-09 19:23] VITALS: BP 105/51; PULSE 76; RESP 20; O2SAT 98
== END 2024-11-09 19:24 ==
PROVIDERS: Emergency Provider Physician Assistant; PCP Internal Medicine
DX: M17.11 Unilateral primary osteoarthritis, right knee (principal); R26.2 Difficulty in walking, not elsewhere classified; R53.1 Weakness; W18.30XA Fall on same level, unspecified, initial encounter; I89.0 Lymphedema, not elsewhere classified; Z91.81 History of falling; Z96.652 Presence of left artificial knee joint; Z79.82 Long term (current) use of aspirin; I10 Essential (primary) hypertension; F31.9 Bipolar disorder, unspecified; G47.33 Obstructive sleep apnea (adult) (pediatric); Z99.89 Dependence on other enabling machines and devices; K21.9 Gastro-esophageal reflux disease without esophagitis; F41.8 Other specified anxiety disorders; Z87.891 Personal history of nicotine dependence
CPT/HCPCS: 36415; 73564; 80048; 83735; 83880; 85025; 93970; 96372; 97161; 97166; 99284; A9270; J1885

== ENCOUNTER 2024-12-20 07:56 | Inpatient (IN) | payer OTHER, MEDICARE, SELFPAY ==
[2024-12-20] VITALS (30 sets, daily range): BP systolic 90–121; BP diastolic 51–77; PULSE 72–90; RESP 11–30; TEMP 36.4–37; O2SAT 93–100; BMI 41.7
--- NOTE | ~2024-12-20 | XR_ITS ---
EXAMINATION: XR chest 2V 12/20/2024 08:47 INDICATION: Weakness PROCEDURE: 2 view chest COMPARISON: Comparison to multiple prior studies sequentially, with oldest reviewed study dated 02/02. FINDINGS: The lungs are clear. The cardiomediastinal silhouette is within normal limits. There are no pleural effusions. There is no pneumothorax suspected. IMPRESSION: 1: NO ACUTE CARDIOPULMONARY DISEASE. Reviewed, dictated and finalized at location A.
--- NOTE | ~2024-12-20 | CT_ITS ---
EXAMINATION: CT diagnostic chest wo con DATE: 12/23/2024 03:04 INDICATION: hypoxia TECHNIQUE: Computed tomography (CT) of the chest was performed without intravenous contrast. Addition al 3D reconstructions utilizing coronal maximum intensity projection (MIP) were performed. Automated exposure control and iterative reconstruction technique were employed. The dose-length product was 60 5.84 mGy-cm. COMPARISON: CT dated 12/06/2023, 11/11/2020 and 07/29/2017 FINDINGS: Persistent consolidation and linear opacities in the dependent aspect of the bilateral lower lobes wi th some corresponding volume loss and would favor atelectasis over pneumonia.. Additional mild discoi d atelectasis in the right middle lobe and lingula. No pulmonary edema or pleural effusion. Heart siz e is normal. No pericardial effusion. Thoracic aorta is normal caliber. Enlargement of the main pulmo nary artery consistent with pulmonary arterial hypertension. No pathologically enlarged thoracic lymp hadenopathy. Goiter with chronic asymmetric enlargement of the right thyroid lobe. Postoperative kay ge of prior gastric bypass procedure. 2.1 cm left adrenal nodule which is been present since CT dated 07/29/2017 consistent with an adenoma. Mild to moderate thoracic spondylosis. IMPRESSION: 1. Consolidation in the dependent aspect of the bilateral lower lobes with associated volume loss and would favor atelectasis over pneumonia. 2. Enlargement of the main pulmonary artery consistent with pulmonary arterial hypertension. 3. Goiter with chronic asymmetric enlargement of the right thyroid lobe. Could consider thyroid ultra sound for risk stratification. Reviewed, dictated and finalized at location A. IMPRESSION: 1. Consolidation in the dependent aspect of the bilateral lower lobes with asso ciated volume loss and would favor atelectasis over pneumonia. 2. Enlargement of the main pulmonary artery consistent with pulmonary arterial hypertension. 3. Goiter with chronic asymmetric enlargement of the right thyroid lobe. Could consider thyroid ultrasound for risk stratification.
--- NOTE | ~2024-12-20 | CT_ITS ---
EXAMINATION: CT brain wo con DATE: 12/23/2024 03:04 INDICATION: Tremors TECHNIQUE: Computed tomography (CT) of the head was performed without intravenous contrast. Sagittal and coronal reconstructions were performed. The mA was adjusted according to patient size. Iterative reconstruction technique was employed. The dose-length product was 605.33 mGy-cm. COMPARISON: head CT dated 07/24/2020 and MR dated 04/10/21 FINDINGS: Small region of encephalomalacia at the right occipital lobe which could be due to infarction or sequ princess of prior surgery with overlying old craniotomy. No acute intracranial hemorrhage, acute infarctio n or abnormal extra axial fluid collection. There is mild scattered white matter hypoattenuation cons istent with chronic small vessel ischemic disease. Symmetric prominence of the sulci consistent with mild age-appropriate diffuse cerebral volume loss. Ventricles are normal and symmetric. No mass/mass effect. The orbits, paranasal sinuses and mastoid air cells are normal. IMPRESSION: 1. No acute intracranial process. 2. Right occipital craniotomy with underlying small focus of encephalomalacia which could be related to prior surgery or infarction. Reviewed, dictated and finalized at location A. IMPRESSION: 1. No acute intracranial process. 2. Right occipital craniotomy with underlying small focus of encephalomalacia w hich could be related to prior surgery or infarction.
--- NOTE | ~2024-12-20 | US_ITS ---
EXAMINATION: US thyroid DATE: 12/23/2024 12:00 INDICATION: Thyroid mass TECHNIQUE: Multiple ultrasound images of the thyroid were obtained. COMPARISON: None. FINDINGS: The right thyroid lobe measures 4.6 x 2.4 x 1.7 cm. The left thyroid lobe measures 4.2 x 1.5 x 0.9 c m. 3.0 cm solid wider than tall right thyroid nodule with smooth margins and mixed hyperechoic and h ypoechoic echogenicity a few punctate echogenic foci (TI-RADS 5, highly suspicious , FNA if >=1.0 cm, annual followup is >0.5 cm). No other thyroid nodules identified. There is normal echotexture, echog enicity and vascular flow throughout the thyroid gland. IMPRESSION: 1. 3.0 cm TI RADS 5 right thyroid nodule for which ultrasound-guided biopsy would be recommended. Reviewed, dictated and finalized at location A. IMPRESSION: 1. 3.0 cm TI RADS 5 right thyroid nodule for which ultrasound-guided biopsy wou ld be recommended.
--- NOTE | 2024-12-20 08:04 | ECG_ITS ---
Test Date: 2024-12-20 08:03:19 Measurements Intervals [place] Rate: 79 P: 0 NV: 0 QRS: 16 QRSD: 102 T: 0 QT: 318 QTc: 365 Interpretive Statements SINUS RHYTHM INCOMPLETE RIGHT BUNDLE BRANCH BLOCK NONSPECIFIC ST & T-WAVE ABNORMALITY- DIFFUSE LEADS BASELINE ARTIFACT- I, II, III, AVR, AVL, AVF, V1-V6 BORDERLINE ECG No previous ECG available for comparison Electronically Signed On 12-20-2024 08:07:04 CDT by Maurice Hall D.O.
--- OUTSIDE RECORDS SUMMARY | 2024-12-20 08:10 | XMS_ITS | Clinical Summary ---
Author Organization [facility] Address [address] [facility] [address] [place] [address] Phone Care Team Providers Care Second Hand Paper Machine Name Role Phone Yannick Umanzor DO Primary [...] 0.03 mg/spray spray, metered, non-aerosol Administer 1 [place] in each nostril 2 times daily. 4 Active Wegovy 0.25 mg/0.5 mL Pen Injector 0.25 mg by See Admin Instructions route every 7 days. 4 Active Active Problems Problem Noted Date Diagnosed Date Monoclonal gammopathy of unknown significance Encounters Date Type Department Care Team Description 11/08/2024 External Device Data [facility] ABSTRACTION Provider, Abstract 10/28/2024 External Device Data [facility] ABSTRACTION Provider, Abstract 10/27/2024 External Device Data [facility] ABSTRACTION Provider, Abstract 10/25/2024 External Device Data [facility] ABSTRACTION Provider, Abstract 10/25/2024 External Device Data [facility] ABSTRACTION Provider, Abstract 10/11/2024 External Device Data [facility] ABSTRACTION Provider, Abstract from Last 3 Months Family History Medical [...] on file Legal Sex Female 4:51 AM DENTAL EQUIPMENT INSTALLER AND SERVICER Gender Identity Not on file Sexual Orientation Not on file Last Filed Vital Signs Vital Sign Reading Time Taken Comments Blood Pressure 126/69 08/02/2024 1:21 PM DENTAL EQUIPMENT INSTALLER AND SERVICER Pulse 77 08/02/2024 1:21 PM DENTAL EQUIPMENT INSTALLER AND SERVICER Temperature 36.8 C (98.2 F) 08/02/2024 1:21 PM DENTAL EQUIPMENT INSTALLER AND SERVICER Respiratory Rate 15 08/02/2024 1:21 PM DENTAL EQUIPMENT INSTALLER AND SERVICER Oxygen Saturation 94% 08/02/2024 1:2 1 PM DENTAL EQUIPMENT INSTALLER AND SERVICER Inhaled Oxygen Concentration - - Weight 83.3 kg (183 lb 9.6 oz) 08/02/2024 1:21 PM DENTAL EQUIPMENT INSTALLER AND SERVICER patient verbally confimed that she is trying to lose weight Height 162.6 cm (5' 4 ) 06/01/2022 8:50 AM CDT Body Mass Index 31.51 06/01/2022 8:50 AM CDT Plan of Treatment Upcoming Encounters Date Type Department Care Team (Late st Contact Info) Description 09/05/2025 10:00 AM DENTAL EQUIPMENT INSTALLER AND SERVICER Office Visit [facility] - [place] [address] [facility] [address] [place] [address] Saul Perez MD [address] [facility] [address] [place] [address] Health Maintenance Due Date Last Done Comments Pre-Diabetes and Diabetes Screening 1955 DTAP/TDAP/TD VACCINES (1 - Tdap) 1975 FIT-DNA Q 3 years 2001 FIT/FOBT Q 1 year 2001 Flex Sig/CT Colonography Q 5 years 2001 PNEUMOCOCCAL VACCINE 50+ YEA RS (1 of 1 - PCV) 2006 ZOSTER VACCINE (1 of 2) 2006 BREAST CANCER SCREENING 05/15/2022 05/15/20 21, 05/15/2021, 09/25/2013, Additional history exists INFLUENZA VACCINE (#1) 2024 OSTEOPOROSIS SCREENING 05/15/2026 05/15/2021 COLORECTAL SCREENING 07/22/2030 07/22/2020 Colorectal Cancer Screening 07/22/2030 RSV VACCINE (60+ or ) (1 - 1-dose 75+ series) 2031 Insurance MEDICARE PART A AND B [employer] OPEN ACCESS MEDICARE PART A AND B [employer] OPEN ACCESS Advance Directives For more information, please contact: [phone] * Full Code (Latest Code Status on File) Date Activated Date Inactivated Comments 08/27/2014 7:51 AM 08/28/2014 8:33 AM * Full Code Date Activated Date Inactivated Comments 08/27/2014 5:59 AM 08/27/2014 7:51 AM Care Teams Second Hand Paper Machine Relationship Specialty Start Date End Date Yannick Umanzor DO [address] [address] PCP - General Internal Medicine 11/07/21
--- OUTSIDE RECORDS SUMMARY | 2024-12-20 08:10 | XMS_ITS | Clinical Summary ---
Author Organization [facility] [address] Address [address] [place] [address] Care Team Providers Care Community Relations Liaison Name Role Phone Yannick Umanzor DO Primary Care Provider [phone] Allergies Active Allergy Reactions Criticality Noted Date [...] on file Legal Sex Female 1:37 AM REFRIGERATION INSULATOR Gender Identity Female 01/02/2024 7:43 PM CDT Sexual Orientation Straight 01/02/2024 7: 43 PM CDT Obstetrics History Last Filed Vital Signs Vital Sign Reading Time Taken Comments Blood Pressure 142/60 12/31/2023 2:20 PM CDT Pulse 70 12/31/2023 2:20 PM CDT Temperature 36.4 C (97.6 F) 10/18/2020 9:01 AM REFRIGERATION INSULATOR Respiratory Rate 20 10/18/2020 9:01 AM REFRIGERATION INSULATOR Oxygen Saturation 95% 12/03/2023 1:24 PM CDT [...] Assessment 06/14/2021 06/14/2020, 03/22/2020, 02/09/2020 Influenza Vaccine (Season Ended) 2025 06/14/20 18, 06/13/2015 Procedures Procedure Name Priority Date/Time Associated Diagnosis Comments SCREENING MAMMOGRAM Routine 09/25/2013 1 0:31 AM REFRIGERATION INSULATOR from Last 3 Months or Most Recently Relevant to Health Maintenance Results * Screening Mammogram (09/25/2013 10:31 AM REFRIGERATION INSULATOR) Anatomical Region Laterality Modality Breast N/A Mammography 09/25/2013 10:3 1 AM REFRIGERATION INSULATOR Narrative 09/29/2013 8:47 AM REFRIGERATION INSULATOR SONNY ABDI M.D. FINAL REPORT ACC# Date Time Exam [id number] Sep 25, 2013 10:31:00 BMV [id number] [place] Screening Mamm Technologist(s): Vale Curran; ; EXAMINATION: Mammogram Technique: Bilateral Full-Field Digital Screening Mammogram was performed. Views obtained: bilateral craniocaudal and bilateral mediolateral oblique. Computer Aided Detection was performed with [employer] System.3 version 9.3. Mammogram Findings: The present examination has been compared to a prior imaging study performed at [facility] on 09/23/2012. There are [...] M.D. FINAL REPORT ACC# Date Time Exam [id number] Sep 25, 2013 10:31:00 BMV [id number] [place] Screening Mamm Technologist(s): Vale Curran; ; EXAMINATION: Mammogram Technique: Bilateral Full-Field Digital Screening Mammogram was performed. Views obtained: bilateral craniocaudal and bilateral mediolateral oblique. Computer Aided Detection was performed with Bi[employer] 1.3 version 9.3. Mammogram Findings: The present examination has been compared to a prior imaging study performed at [facility] on09/23/2012. There are scattered [...] Most Recently Relevant to Health Maintenance Insurance [facility] Member Subscriber Plan / Payer ( fective 2010-Present) Name:Leydi Su Member ID:[id number] Relation to Subscriber:Self Name:Leydi Su Subscriber ID:[id number] Payer ID:[id number] Type:[employer] Address: [address] MEDICARE [facility] [id number] [facility] [id number] MEDICARE MEDICARE [facility] [address] Care Teams Community Relations Liaison Relationship Specialty Start Date End Date Yannick Umanzor DO PCP - General Internal Medicine 10/18/20
--- OUTSIDE RECORDS SUMMARY | 2024-12-20 08:10 | XMS_ITS | CONTINUITY OF CARE DOCUMENT ---
Author Name josh moreno Address Unknown Organization [facility] Address [address] [facility] [address] [place] [address] Phone [phone] Care Team Providers Care Pharmaceutical Scientist Name Role Phone Tyrese APPIAH, Eloisa Unavailable [phone] INSURANCE PROVIDERS Payer name Policy type / Coverage type Eamon red alliance party ID MEDICARE SECONDARY [place] Medicare [id number] Short Fuze OPEN ACCESS Other [id number]
--- OUTSIDE RECORDS SUMMARY | 2024-12-20 08:10 | XMS_ITS ---
Author Organization [facility] Address [address] [facility] [address] [place], [place] [address] Care Team Providers Care Pharmacy Student Name Role Phone DEE GEE Unavailable [phone] Yannick Umanzor Unavailable Unavailable REASON FOR VISIT *General care Encounters Encounter Location Date Provider Diagnosis [facility] [place] [address] [place], [place] [id number] 08/03/2024 DEE GEE Atherosclerosis of [place] arteries of extremities with intermittent claudication, bilateral legs I70.213 ; Onychomycosis B35.1 ; Pain in right toe(s) M79.674 and Pain in left toe(s) M79.675 Assessments Encounter Date Diagnosis (ICD Code) Assessment Notes Treatment Notes Treatment Clinical Notes Section Notes 08/03/2024 Atherosclerosis of [place] arteries of extremities with intermittent claudication, bilateral [...] 08:50:00 AM, [address], [facility] [place], [place], [place], [id number], Progress Notes * VALE PFEIFFERDOB:1955 (69 yo F)Acc No.[id number]:08/03/2024 Patient: VALE BENJAMIN Provider: Melisa Gee DPM :1955 A ge:69 Y S ex:Female Date:08/03/2024 Address:[address] [place] [address] Subjective: * Chief Complaints: * * General [...] B35.1 (Primary) 2 . A therosclerosis of [place] arteries of extremities with intermittent claudication, bilateral legs - I70.213 3 . P ain in right toe(s) - M79.674 4 . P ain in left toe(s) - M79.675 Plan: * Treatment: * Procedure Codes: * Follow Up: 9 weeks * Billing Information: * Visit Code: 76234 Office Visit, Est Pt., Level 3. * Procedure Codes: * Sign off status: Completed true * Provider: Melisa Gee DPM Date: 10/04/2023 Generated for Dina palacio/Jono/Radha on: 0 12/20/2024 08:10 AM CDT History and Physical Notes * [...]
--- OUTSIDE RECORDS SUMMARY | 2024-12-20 08:11 | XMS_ITS | Clinical Summary ---
Author Organization [facility] Address [address] [place] [address] Phone Care Team Providers Care Sidewalk Inspector Name Role Phone JavierYannick price Primary Care Provider [phone] Allergies Active Allergy Reactions Criticality Noted Date Comments Acyclovir Hives High 08/17/2014 Omeprazole Other (see comments),Shortness of breath High 08/17/2014 hyperventilation hyperventilate Medications ARIPiprazole (Abilify) 30 MG tablet Take by [...] (DITROPAN-XL) 10 MG 24 hr tablet 09/05/2021 Act haris ergocalciferol (VITAMIN D-2) 1.25 MG (75572 UT) capsule 12/12/2019 Active Carbonyl Iron 45 MG tablet 45 mg Active amLODIPine (NORVASC) 5 MG tablet 08/13/2021 Active albuterol HFA (PROVENTIL HFA) 108 (90 Base) MCG/ACT inhaler 10/02/2021 Act haris Active Problems Problem Noted Date Diagnosed Date [...] 02/09/2020 Obstructive sleep apnea syndrome 02/09/2020 Immunizations Immunization Administration Dates Next Due Sars-cov-2, Unspecified 10/29/2020 [...] at Not on file Legal Sex Female 11:50 AM MDT Gender Identity Not on file Sexual Orientation [...] Medium Risk (1 of 4 - PCV) 2006 Influenza Vaccine (Season Ended) 2025 Insurance [employer] MEDICARE Care Teams Sidewalk Inspector Relationship Specialty Start Date End Date Yannick Umanzor DO [address] [place] [address] PCP - General Internal Medicine 01/27/21
--- OUTSIDE RECORDS SUMMARY | 2024-12-20 08:11 | XMS_ITS ---
Author Organization [facility] Address [address] [facility] [address] [place], [place] [address] Care Team Providers Care Rail Project Engineer Name Role Phone DEE GEE Unavailable [phone] Yannick Umanzor Unavailable Unavailable Allergies No Known Allergies REASON FOR VISIT *General care Immunizations Vaccine Route Administration Date Status Comme nts Influenza, high dose seasonal Unknown 11/02/2024 Refuse d Pneumococcal conjugate PCV 13 Unknown 11/02/2024 Refuse d Vital Signs Weight 300 lbs 11/02/2024 Weight-kg 136.08 kg 11/02/2024 Height 64.00 in 11/02/2024 Height-cm 162.56 cm 11/02/2024 BMI 51.49 kg/m2 11/02/2024 Encounters Encounter Location Date Provider Diagnosis [facility] [place] [address] [place], [place] [id number] 11/02/2024 DEE GEE Atherosclerosis of [place] arteries of extremities with intermittent claudication, bilateral legs I70.213 ; Onychomycosis B35.1 ; Pain in right toe(s) M79.674 and Pain in left toe(s) M79.675 Assessments Encounter Date Diagnosis (ICD Code) Assessment Notes Treatment Notes Treatment Clinical Notes Section Notes 11/02/2024 Atherosclerosis of [place] arteries of extremities with intermittent claudication, bilateral [...] 08:50:00 AM, [address], [address], [id number], Progress Notes * PFEIFFERVALE KRAFTDOB:1955 (69 yo F)Acc No.[id number]:11/02/2024 Patient: LENA BENJAMINGY Provider: Melisa Gee DPM :1955 A ge:69 Y S ex:Female Date:11/02/2024 Address:[address] [place] [address] Subjective: * Chief Complaints: * * General [...] August 2024., Initials LB. * Medical History: * Surgical History: B rain surgery Right foot surgery Right wrist surgery Bladder surgery * Hospitalization/Major Diagno stic Procedure: N o Hospitalization History. * Family History: F ather: PRN - Father: :: Cancer,,known absent . M other: PRN - Mother: :: Hypertension,,known absent , :: Anemia,,known absent . * Social History: M igrated Social History: M igrated Social History: Smoking Status : Former tobacco user , History of tobacco use :. * Medications: N one * Allergies: N .K.D.A.no[Allergies Verified] Objective: * Vitals: S hoe Size: 9w, [...] B35.1 (Primary) 2 . A therosclerosis of [place] arteries of extremities with intermittent claudication, bilateral legs - I70.213 3 . P ain in right toe(s) - M79.674 4 . P ain in left toe(s) - M79.675 Plan: * Treatment: * Immunizations: Influenza, high dose seasonal (Not administered - Refused: Patient decision) Pneumococcal conjugate PCV 13 (Not administered - Refused: Patient decision) ???Immunization record has been reviewed and updated. * Procedure Codes: * Follow Up: 9 weeks * Billing Information: * Visit Code: 23090 Office Visit, Est Pt., Level 3. * Procedure Codes: * Sign off status: Completed true * Provider: Melisa Gee DPM Date: 0 11/02/2024 Generated for Dina Linares/Radha on: 0 12/20/2024 08:10 AM CDT History [...] bilaterally Temperature gradient: warm to cool elen giron
--- OUTSIDE RECORDS SUMMARY | 2024-12-20 08:11 | XMS_ITS | Referral Summary ---
Author Organization [facility] [address] Address [address] [place] [address] Care Team Providers Care Elastic Assembler Name Role Phone Yannick Umanzor DO Primary Care Provider [phone] Allergies Active Allergy Reactions Criticality Noted Date [...] on file Legal Sex Female 1:37 AM UROLOGY PHYSICIAN ASSISTANT Gender Identity Female 01/02/2024 7:43 PM CDT Sexual Orientation Straight 01/02/2024 7: 43 PM CDT Last Filed Vital Signs Vital Sign Reading Time Taken Comments Blood Pressure 142/60 12/31/2023 2:20 PM CDT Pulse 70 12/31/2023 2:20 PM CDT Temperature 36.4 C (97.6 F) 10/18/2020 9:01 AM UROLOGY PHYSICIAN ASSISTANT Respiratory Rate 20 10/18/2020 9:01 AM UROLOGY PHYSICIAN ASSISTANT Oxygen Saturation 95% 12/03/2023 1:24 PM CDT Inhaled Oxygen Concentration - - Weight 126.1 kg (278 lb) 12/31/2023 2:20 PM CDT Height 162.6 cm (5' 4 ) 12/31/2023 2:20 PM CDT Body Mass Index 47.72 12/31/2023 2:20 PM CDT Plan of Treatment Not on file Procedures Procedure Name Priority Date/Time Associated Diagnosis Comments SCREENING MAMMOGRAM Routine 09/25/2013 1 0:31 AM UROLOGY PHYSICIAN ASSISTANT from Last 3 Months or Most Recently Relevant to Health Maintenance Results * Screening Mammogram (09/25/2013 10:31 AM UROLOGY PHYSICIAN ASSISTANT) Anatomical Region Laterality Modality Breast N/A Mammography 09/25/2013 10:3 1 AM UROLOGY PHYSICIAN ASSISTANT Narrative 09/29/2013 8:47 AM UROLOGY PHYSICIAN ASSISTANT SONNY ABDI M.D. FINAL REPORT ACC# Date Time Exam [id number] Sep 25, 2013 10:31:00 BMV [id number] [place] Screening Mamm Technologist(s): Vael Curran; ; EXAMINATION: Mammogram Technique: Bilateral Full-Field Digital Screening Mammogram was performed. Views obtained: bilateral craniocaudal and bilateral mediolateral oblique. Computer Aided Detection was performed with [employer] 1.3 version 9.3. Mammogram Findings: The present examination has been compared to a prior imaging study performed at [facility] on 09/23/2012. There [...] M.D. FINAL REPORT ACC# Date Time Exam [id number] Sep 25, 2013 10:31:00 BMV [id number] [place] Screening Mamm Technologist(s): Vale Curran; ; EXAMINATION: Mammogram Technique: Bilateral Full-Field Digital Screening Mammogram was performed. Views obtained: bilateral craniocaudal and bilateral mediolateral oblique. Computer Aided Detection was performed with [employer].3 version 9.3. Mammogram Findings: The present examination has been compared to a prior imaging study performed at [facility] on09/23/2012. There are [...] Most Recently Relevant to Health Maintenance Insurance [employer] [facility] Member Subscriber Plan / Payer (Ef fective 2010-Present) Name:Leydi Su Member ID:[id number] Relation to Subscriber:Self Name:Leydi Su Subscriber ID:[id number] Payer ID:[id number] Type:[employer] HMO/PPO Address: [address] [place] [id number] [facility] MEDICARE [facility] [id number] [facility] [id number] MEDICARE MEDICARE [facility] [id number] Care Teams Elastic Assembler Relationship Specialty Start Date End Date Yannick Umanzor DO PCP - General Internal Medicine 10/18/20
--- OUTSIDE RECORDS SUMMARY | 2024-12-20 08:11 | XMS_ITS | Clinical Summary ---
Author Organization [facility] Address Replaced by [facility] [place] [address] Care Team Providers Care Environmental Education Specialist Name Role Phone Unavailable Primary Care Provider [...] 1 - Tdap) 1975 Mammogram Screening 1996 Pneumococcal Vaccine: 50+ Ye ars (1 of 1 - PCV) 2006 Zoster Vaccines (1 of 2) 2006 Dexa Scan (General) 2021 COVID-19 Vaccine ( - 2023-2 5 season) 2024 RSV Immunization or 60+ Years (1 [...]
--- OUTSIDE RECORDS SUMMARY | 2024-12-20 08:11 | XMS_ITS | Clinical Summary ---
Author Organization [facility] Address [address] [facility] [address] Care Team Providers Care Automotive Refinisher Name Role Phone Megan Cano MD Primary Care Provider [phone] Megan Cano MD Unavailable [phone] Kwame Hathaway MD Unavailable [phone] Source Comments [facility],non-owned Affiliates and Associated Physician Practices is amultiple site organization consisting of ambulatory clinics and hospital sitesin [place], [place], [place] and [place]. This disclosure is being madepursuant to the Care Everywhere program and may not contain all information available regarding this patient. Last updated 18.[facility] Allergies Active Allergy Reactions Criticality Noted Date Comments Acyclovir Urticaria Medium 08/17/2014 Omeprazole Shortness of Breath High hyperventilation Medications * Be aware that medications may not be up to date on this document. Alwaysverify current medications with the patient. LORazepam (ATIVAN) 2 MG tablet Take 2 mg by mouth 3 times daily Active pantoprazole EC (PROTONIX) 40 MG tablet Take 40 mg by mouth once daily Active lamoTRIgine (LAMICTAL) 200 MG tablet Take 200 mg by mouth 2 times daily Active cyclobenzaprin e (FLEXERIL) 5 MG tablet Take 5 mg by mouth 2 times daily as needed Active HYDROcodone-ac etaminophen (NORCO) 10-325 MG tablet Take 1 Tab by mouth every 8 hours as needed for Pain Active Cyanocobalamin 500 MCG/0.1ML every 7 days Act haris ARIPiprazole (ABILIFY) 1 MG half tablet Take 1 mg by mouth once daily Active DULOXETINE HCL PO Take 60 mg by mouth 2 times daily Active Mirabegron (MYRBETRIQ PO) Take 25 mg by mouth once daily Active doxycycline (VIBRAMYCIN) 50 MG capsule Take 50 mg by mouth every 12 hours For eye infection, prison administration Active Eyelid Cleansers (AVENOVA EX) by Apply externally route 2 times daily Active polyvinyl alcohol-povido ne (REFRESH) 1.4-0.6 % ophthalmic solution 1 Drop 2 times daily Active Ferrous Sulfate (SLOW FE PO) Take 1 Tab by mouth once daily Active estradiol (YUVAFEM) 10 MCG vaginal tabletIndicati ons:Postmenopa usal atrophic vaginitis Insert 1 Tab into the vagina Two times a week 26 Tab 3 7 Active Additional Information Patient not taking.Reported on 07/22/2020 sennosides (SENOKOT) 8.6 MG tablet Take by mouth at bedtime Active Fiber, Guar Gum, Take by mouth once daily 2 gummies daily Active traZODone (DESYREL) 100 MG tablet Take 200 mg by mouth at bedtime Active Cyanocobalamin (NASCOBAL) 500 MCG/0.1ML Active RESTASIS MULTIDOSE 0.05 % ophthalmic suspension 7 Active ARIPiprazole (ABILIFY) 20 MG tablet 7 Active DULoxetine (CYMBALTA) 60 MG capsule 7 Active sertraline (ZOLOFT) 100 MG tablet Take 100 mg by mouth once daily Active buPROPion SR 12hr (WELLBUTRIN-SR ) 150 MG tablet Take 150 mg by [...] at Not on file Legal Sex Female 1:13 PM CDT Gender Identity Not on file Sexual Orientation Not on file Last Filed Vital Signs Vital Sign Reading Time Taken Comments Blood Pressure 130/78 07/22/2020 12:05 PM COMMUNITY RELATIONS REPRESENTATIVE Pulse 83 07/22/2020 12:05 PM COMMUNITY RELATIONS REPRESENTATIVE Temperature 37 C (98.6 F) 07/22/2020 11:07 AM COMMUNITY RELATIONS REPRESENTATIVE Respiratory Rate 22 07/22/2020 12:05 PM COMMUNITY RELATIONS REPRESENTATIVE Oxygen Saturation 94% 07/22/2020 12:26 PM COMMUNITY RELATIONS REPRESENTATIVE Inhaled Oxygen Concentration 50% 2017 1 0:20 AM CDT Weight 124.7 kg (275 lb) 07/22/2020 10:58 AM COMMUNITY RELATIONS REPRESENTATIVE Height 162.6 cm (5' 4 ) 07/22/2020 10:58 AM COMMUNITY RELATIONS REPRESENTATIVE Body Mass Index 47.2 07/22/2020 10:58 AM COMMUNITY RELATIONS REPRESENTATIVE Plan of Treatment Health Maintenance Due Date [...] - 2023-2 5 season) 2024 INFLUENZA VACCINE (Season Ended) 2025 COLON MONITORING 07/22/2030 07/22/2020, 07/22/2020, 07/22/2020 COLONOSCOPY [...] this topic Medical Devices Implanted Type Area Evaluation Engineer Device Identifier Shelf Expiration Date Model / Serial / Lot Sys Ureth Supp Obtryx Midurethral Trnstr Implanted:Qty: 1 on 2017 by Kwame Hathaway MD at [facility] [employer] 01/11/2020 [id number] / / [id number] Graft Tissue Xenform Ftl Bvn Drml Mtrx 7 Implanted:Qty: 1 on 2017 by Kwame Hathaway MD at [facility] [employer] Scientific Micro[employer] 08/22/2019 [id number] / / [id number] Procedures Procedure Name Priority Date/Time Associated Diagnosis Comments ENDOSCOPY, COLON, SCREENING Routine 07/22/2020 10:36 AM COMMUNITY RELATIONS REPRESENTATIVE from Last 3 Months or Most Recently Relevant to Health Maintenance Results * ENDOSCOPY, COLON, SCREENING (07/22/2020 10:36 AM COMMUNITY RELATIONS REPRESENTATIVE) Report Endoscopy POC _ Patient Name: Leydi Pfeiffer Procedure Date: 07/22/2020 10:36 AM Date of [...] for surveillance. Procedure Code(s): --- Professional --- 49164, Colonoscopy, flexible; with removal of tumor(s), polyp(s), or other lesion(s) by snare technique 70219, Colonoscopy, flexible; with directed submucosal injection(s), any substance 37872, 59, Colonoscopy, flexible; with biopsy, single or multiple --- Technical --- 82001, Colonoscopy, flexible; with removal of tumor(s), polyp(s), or other lesion(s) by snare technique 30534, Colonoscopy, flexible; with directed submucosal injection(s), any substance 32658, 59, Colonoscopy, flexible; with biopsy, single or [...] neoplasm of digestive organs CPT copyright 2017 [employer]. All rights reserved. The codes documented in this report are preliminary and upon unit trust manager review may be revised to meet current compliance requirements. Damien Green MD 07/22/2020 12:00:12 PM This report has been signed electronically. Number of Addenda: 0 Note Initiated On: 07/22/2020 10:36 AM [facility] ENDOSCOPY 07/22/2020 10:3 6 AM COMMUNITY RELATIONS REPRESENTATIVE us Damien Green MD GI PROCEDURE ORDERABLES Edited Result - Final [facility] ENDOSCOPY from Last 3 Months or Most Recently Relevant to Health Maintenance Insurance [employer] MEDICARE Advance Directives * Full Code (Latest Code Status on File) Date Activated Date Inactivated Comments 2017 12:04 PM 04/08/2017 5:39 PM Care Teams Automotive Refinisher Relationship Specialty Start Date End Date Megan Cano MD [address] [place] [address] PCP - General Internal Medicine 02/26/17 Megan Cano MD [address] [place] [address] 02/26/17 Kwame Hathaway MD [address] [facility] [address] [place] [address] [facility] Obstetrics [facility] Gyne[facility] 05/20/17
--- OUTSIDE RECORDS SUMMARY | 2024-12-20 08:11 | XMS_ITS | Clinical Summary ---
Author Organization [facility] Care Team Providers Care Pharmacist Apprentice Name Role Phone Unavailable Primary Care Provider Unavailabl e Encounters Date Type Department Care Team Description 11/11/2024 Lab Requisition [facility] Laboratory Services [address] [place] [address] Nikolas Arnett DO Anemia, unspecified from Last 3 Months Social History Tobacco Use Types Packs/Day Years Used Date Smoking Tobacco: Never Assessed Comments Unknown Sex and Gender Information Value Date Recorded Sex Assigned at Not on file Legal Sex Female 10:12 PM CDT Gender Identity Not on file Sexual Orientation Not on file Plan of Treatment Not on file Procedures Procedure Name Priority Date/Time Associated Diagnosis Comments CBC WITH AUTO DIFFERENTIAL Routine 11/11/2024 8:30 AM CDT Anemia, unspecified COMPLETE BLOOD COUNT (CBC) WITH DIFF Routine 11/11/2024 8:30 AM CDT Anemia, unspecified CMP (COMPREHENSIVE METABOLIC PANEL) Routine 11/11/2024 8:30 AM CDT Anemia, unspecified from Last 3 Months Results * (ABNORMAL) CBC WITH AUTO DIFFERENTIAL (11/11/2024 8:30 AM CDT) WBC 10.84 4.00 - 12.00 10(3)/mcL 11/11/2024 10:30 AM CDT [facility] RBC 4.49 3.80 - 5.30 10(6)/mcL 11/11/2024 10:30 AM CDT [facility] HEMOGLOBIN (HGB) 14.4 12.0 - 15.8 g/dL 11/11/2024 10:30 AM CDT [facility] HEMATOCRIT (HCT) 43.5 36.0 - 47.0 % 11/11/2024 10:30 AM CDT [facility] MCV 96.9(H) 82.0 - 96.0 fL 11/11/2024 10:30 AM CDT [facility] MCH 32.1 26.0 - 34.0 pg 11/11/2024 10:30 AM CDT [facility] MCHC 33.1 31.0 - 36.0 g/dL 11/11/2024 10:30 AM CDT [facility] PLATELET COUNT 272 140 - 440 10(3)/[facility] 11/11/2024 10:30 AM CDT [facility] RDW 13.6 11.8 - 15.5 % 11/11/2024 10:30 AM CDT [facility] MPV 9.5(L) 9.7 - 12.4 fL 11/11/2024 10:30 AM CDT [facility] NEUTROPHILS 69.4 47.0 - 73.0 % 11/11/2024 10:30 AM CDT [facility] LYMPHOCYTES 18.4 18.0 - 42.0 % 11/11/2024 10:30 AM CDT [facility] MONOCYTES 9.9 4.0 - 12.0 % 11/11/2024 10:30 AM CDT [facility] EOSINOPHILS 1.7 0.0 - 5.0 % 11/11/2024 10:30 AM CDT [facility] BASOPHILS 0.6 0.0 - 1.0 % 11/11/2024 10:30 AM CDT [facility] ABSOLUTE NEUTROPHILS 7.54 1.60 - 7.70 10(3)/mcL 11/11/2024 10:30 AM CDT [facility] ABSOLUTE LYMPHOCYTES 1.99 1.30 - 3.20 10(3)/mcL 11/11/2024 10:30 AM CDT [facility] ABSOLUTE MONOCYTES 1.07(H) 0.20 - 1.00 10(3)/mcL 11/11/2024 10:30 AM CDT [facility] ABSOLUTE EOSINOPHIL 0.18 0.00 - 0.40 10(3)/mcL 11/11/2024 10:30 AM CDT [facility] ABSOLUTE BASOPHILS 0.06 0.00 - 0.10 10(3)/mcL 11/11/2024 10:30 AM CDT [facility] NRBC PER 100 WBC 0 11/12/19 10:30 AM CDT [facility] Blood No Phlebotomy Charged / Unknown 11/11/2024 8:30 AM CDT 11/11/2024 10:17 AM CDT Nikolas Arnett DO HEMATOLOGY ORDERABLES Final Resu lt [facility] [address] [place] [address] * (ABNORMAL) CMP (COMPREHENSIVE METABOLIC PANEL) (11/11/2024 8:30 AM CDT) SODIUM 141 136 - 145 mmol/L 11/11/2024 11:03 AM CDT [facility] POTASSIUM 2.8(L) 3.5 - 5.1 mmol/L 11/11/2024 11:03 AM CDT [facility] CHLORIDE 102 98 - 107 mmol/L 11/11/2024 11:03 AM CDT [facility] CO2, VENOUS 24 22 - 30 mmol/L 11/11/2024 11:03 AM CDT [facility] ANION GAP 17.8 <18.0 mmol/L 11/11/2024 11:03 AM CDT [facility] GLUCOSE 98 70 - 99 mg/dL 11/11/2024 11:03 AM CDT [facility] BUN 15 10 - 20 mg/dL 11/11/2024 11:03 AM CDT [facility] CREATININE, BLOOD 1.39(H) 0.60 - 1.00 mg/dL 11/11/2024 11:03 AM CDT [facility] BUN/CREATININE RATIO 11(L) 12 - 20 ratio 11/11/2024 11:03 AM T [facility] TOTAL PROTEIN 6.5 6.0 - 8.0 g/dL 11/11/2024 11:03 AM [facility] ALBUMIN 3.5 3.5 - 5.0 g/dL 11/11/2024 11:03 AM [facility] A/G RATIO 1.2 1.0 - 2.2 11/11/2024 11:03 AM [facility] CALCIUM 9.0 8.7 - 10.5 mg/dL 11/11/2024 11:03 AM [facility] T BILI 0.9 0.2 - 1.2 mg/dL 11/11/2024 11:03 AM [facility] SGOT (AST) 68(H) <43 U/L 11/11/2024 11:03 AM [facility] SGPT (ALT) 27 <56 U/L 11/11/2024 11:03 AM [facility] ALKALINE PHOSPHATASE 55 40 - 150 U/L 11/11/2024 11:03 AM [facility] GFR, ESTIMATED 41(L) >=60 11/11/2024 11:03 AM [facility] Comment: Creatinine Clearance is the preferred criteria for selecting drug dose adjustments in renally impaired patients. The GFR is provided as additional pertinent clinical information. GFR is reported in mL/min/1.73 sq m. Calculation based on the Chronic Kidney Disease Epidemiology Collaboration (CKD- EPI) equation refit without adjustment for race. GFR, EST. 46(L) >=60 025 11:03 AM [facility] GFR, EST. NONAFRICAN 38(L) >=60 11/11/2024 11:03 AM [facility] Blood No Phlebotomy Charged / Unknown 11/11/2024 8:30 AM T 11/11/2024 10:17 AM CDT us Nikolas rAnett DO CHEMISTRY ORDERABLES Final Resul t [facility] [address] [place] [address] from Last 3 Months
--- OUTSIDE RECORDS SUMMARY | 2024-12-20 08:11 | XMS_ITS ---
Author Organization [facility] Address [address] [facility] [address] [place], [place] [id number] Care Team Providers Care Mining Teacher Name Role Phone DEE GEE Unavailable [phone] Yannick Umanzor Unavailable Unavailable REASON FOR VISIT *General care Encounters Encounter Location Date Provider Diagnosis [facility] [place] [address] [place], [place] [id number] 06/01/2024 DEE GEE Atherosclerosis of picayune arteries of extremities with intermittent claudication, bilateral legs I70.213 ; Onychomycosis B35.1 ; Pain in right toe(s) M79.674 and Pain in left toe(s) M79.675 Assessments Encounter Date Diagnosis (ICD Code) Assessment Notes Treatment Notes Treatment Clinical Notes Section Notes 06/01/2024 Atherosclerosis of picayune arteries of extremities with intermittent claudication, bilateral [...] 08:50:00 AM, [address], [facility], [place], [place], [id number], Progress Notes * VALE PFEIFFERDOB:1955 (69 yo F)Acc No.[id number]:06/01/2024 Patient: VALE BENJAMIN Provider: Melisa Gee DPM :1955 A ge:69 Y S ex:Female Date:06/01/2024 Address:[address] [place] [address] Subjective: * Chief Complaints: * * General [...] B35.1 (Primary) 2 . A therosclerosis of picayune arteries of extremities with intermittent claudication, bilateral legs - I70.213 3 . P ain in right toe(s) - M79.674 4 . P ain in left toe(s) - M79.675 Plan: * Treatment: * Procedure Codes: * Follow Up: 9 weeks * Billing Information: * Visit Code: 11073 Office Visit, Est Pt., Level 3. * Procedure Codes: * Sign off status: Completed true * Provider: Melisa Gee DPM Date: Generated for Dina palacio/Jono/Radha on: 0 12/20/2024 08:11 AM CDT History and Physical Notes * [...]
--- OUTSIDE RECORDS SUMMARY | 2024-12-20 08:11 | XMS_ITS | Encounter Summary ---
Author Organization [facility] Address [address] [place] [address] Phone Care Team Providers Care Briquetting Machine Operator Name Role Phone Unavailable Primary Care Provider Unavailabl e Encounter Details Date Type Department Care Team (Late st Contact Info) Description 11/11/2024 Lab Requisition [facility] Laboratory Services [address] [place] [address] Nikolas Arnett DO [address] [place] [address] Anemia, unspecified Social History Tobacco Use Types Packs/Day Years Used Date Smoking Tobacco: Never Assessed Comments Unknown Sex and Gender Information Value Date Recorded Sex Assigned at Not on file Legal Sex Female 10:12 PM CDT Gender Identity Not on file Sexual Orientation Not on file documented as of this encounter Plan of Treatment Not on file documented as of this encounter Procedures Procedure Name Priority Date/Time Associated Diagnosis Comments CBC WITH AUTO DIFFERENTIAL Routine 11/11/2024 8:30 AM CDT Anemia, unspecified CMP (COMPREHENSIVE METABOLIC PANEL) Routine 11/11/2024 8:30 AM CDT Anemia, unspecified COMPLETE BLOOD COUNT (CBC) WITH DIFF Routine 11/11/2024 8:30 AM CDT Anemia, unspecified documented in this encounter Results * (ABNORMAL) CBC WITH AUTO DIFFERENTIAL (11/11/2024 8:30 AM CDT) WBC 10.84 4.00 - 12.00 10(3)/mcL 11/11/2024 10:30 AM CDT [facility] RBC 4.49 3.80 - 5.30 10(6)/[facility] 11/11/2024 10:30 AM CDT [facility] HEMOGLOBIN (HGB) 14.4 12.0 - 15.8 g/dL 11/11/2024 10:30 AM CDT [facility] HEMATOCRIT (HCT) 43.5 36.0 - 47.0 % 11/11/2024 10:30 AM CDT [facility] MCV 96.9(H) 82.0 - 96.0 fL 11/11/2024 10:30 AM CDT [facility] MCH 32.1 26.0 - 34.0 pg 11/11/2024 10:30 AM CDT [facility] MCHC 33.1 31.0 - 36.0 g/dL 11/11/2024 10:30 AM CDT [facility] PLATELET COUNT 272 140 - 440 10(3)/[facility] 11/11/2024 10:30 AM CDT [facility] RDW 13.6 11.8 - 15.5 % 11/11/2024 10:30 AM CDT [facility] MPV 9.5(L) 9.7 - 12.4 fL 11/11/2024 10:30 AM CDT [facility] NEUTROPHILS 69.4 47.0 - 73.0 % 11/11/2024 10:30 AM CDT [facility] LYMPHOCYTES 18.4 18.0 - 42.0 % 11/11/2024 10:30 AM CDT [facility] MONOCYTES 9.9 4.0 - 12.0 % 11/11/2024 10:30 AM CDT [facility] EOSINOPHILS 1.7 0.0 - 5.0 % 11/11/2024 10:30 AM CDT [facility] BASOPHILS 0.6 0.0 - 1.0 % 11/11/2024 10:30 AM CDT [facility] ABSOLUTE NEUTROPHILS 7.54 1.60 - 7.70 10(3)/mcL 11/11/2024 10:30 AM CDT [facility] ABSOLUTE LYMPHOCYTES 1.99 1.30 - 3.20 10(3)/[facility] 11/11/2024 10:30 AM CDT [facility] ABSOLUTE MONOCYTES 1.07(H) 0.20 - 1.00 10(3)/[facility] 11/11/2024 10:30 AM CDT [facility] ABSOLUTE EOSINOPHIL 0.18 0.00 - 0.40 10(3)/[facility] 11/11/2024 10:30 AM CDT [facility] ABSOLUTE BASOPHILS 0.06 0.00 - 0.10 10(3)/[facility] 11/11/2024 10:30 AM CDT [facility] NRBC PER 100 WBC 0 11/12/19 10:30 AM CDT [facility] Blood No Phlebotomy Charged / Unknown 11/11/2024 8:30 AM CDT 11/11/2024 10:17 AM CDT Nikolas Arnett DO HEMATOLOGY ORDERABLES Final Resu lt [facility] [address] [place] [address] * (ABNORMAL) CMP (COMPREHENSIVE METABOLIC PANEL) (11/11/2024 8:30 AM CDT) SODIUM 141 136 - 145 mmol/L 11/11/2024 11:03 AM CDT [facility] POTASSIUM 2.8(L) 3.5 - 5.1 mmol/L 11/11/2024 11:03 AM CDT [facility] CHLORIDE 102 98 - 107 mmol/L 11/11/2024 11:03 AM CDT [facility] CO2, VENOUS 24 22 - 30 mmol/L 11/11/2024 11:03 AM CDT [facility] ANION GAP 17.8 <18.0 mmol/L 11/11/2024 11:03 AM CDT [facility] GLUCOSE 98 70 - 99 mg/dL 11/11/2024 11:03 AM [facility] BUN 15 10 - 20 mg/dL 11/11/2024 11:03 AM [facility] CREATININE, BLOOD 1.39(H) 0.60 - 1.00 mg/dL 11/11/2024 11:03 AM [facility] BUN/CREATININE RATIO 11(L) 12 - 20 ratio 11/11/2024 11:03 AM [facility] TOTAL PROTEIN 6.5 6.0 - 8.0 g/dL 11/11/2024 11:03 AM [facility] ALBUMIN 3.5 3.5 - 5.0 g/dL 11/11/2024 11:03 AM [facility] A/G RATIO 1.2 1.0 - 2.2 11/11/2024 11:03 AM [facility] CALCIUM 9.0 8.7 - 10.5 mg/dL 11/11/2024 11:03 AM [facility] T BILI 0.9 0.2 - 1.2 mg/dL 11/11/2024 11:03 AM [facility] SGOT (AST) 68(H) <43 U/L 11/11/2024 11:03 AM [facility] SGPT (ALT) 27 <56 U/L 11/11/2024 11:03 AM [facility] ALKALINE PHOSPHATASE 55 40 - 150 U/L 11/11/2024 11:03 AM [facility] GFR, ESTIMATED 41(L) >=60 11/11/2024 11:03 AM [facility] Comment: Creatinine Clearance is the preferred criteria for selecting drug dose adjustments in renally impaired patients. The GFR is provided as additional pertinent clinical information. GFR is reported in mL/min/1.73 sq m. Calculation based on the Chronic Kidney Disease Epidemiology Collaboration (CKD- EPI) equation refit without adjustment for race. GFR, EST. 46(L) >=60 025 11:03 AM [facility] GFR, EST. NONAFRICAN 38(L) >=60 11/11/2024 11:03 AM CDT [facility] Blood No Phlebotomy Charged / Unknown 11/11/2024 8:30 AM CDT 11/11/2024 10:17 AM CDT us Nikolas Arnett DO CHEMISTRY ORDERABLES Final Resul t [facility] [address] [place] [address] documented in this encounter Visit Diagnoses Diagnosis Anemia, unspecified documented in this encounter
--- OUTSIDE RECORDS SUMMARY | 2024-12-20 08:11 | XMS_ITS | Patient Health Record ---
Author Organization [facility] Address [address] [facility] [address] [place], [place] [id number] Care Team Providers Care Rip And Groove Machine Operator Name Role Phone DEE CAMACHO Unavailable [phone] Yannick Umanzor Unavailable Unavailable Allergies No Known [...] Location Date Provider Diagnosis [facility] [place] [address] [place] [id number] 01/14/2024 DEE CAMACHO Fungal infection of nail B35.1 ; Pain in right toe(s) M79.674 ; Pain in left toe(s) M79.675 and 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, bilateral legs I70.203 [facility] [place] [address] [place], [place] [id number] 03/30/2024 DEE CAMACHO Fungal infection of nail B35.1 ; Pain in right toe(s) M79.674 ; Pain in left toe(s) M79.675 and 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, bilateral legs I70.203 [facility] [place] [address] [place], [place] [id number] 06/01/2024 DEE CAMACHO 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, bilateral legs I70.213 ; Onychomycosis B35.1 ; Pain in right toe(s) M79.674 and Pain in left toe(s) M79.675 [facility] [place] [address] [place] [id number] 08/03/2024 DEE CAMACHO 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, bilateral legs I70.213 ; Onychomycosis B35.1 ; Pain in right toe(s) M79.674 and Pain in left toe(s) M79.675 [facility] [place] [address] [place] [id number] 11/02/2024 DEE CAMACHO 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, bilateral legs I70.213 ; Onychomycosis B35.1 ; Pain in right toe(s) M79.674 and Pain in left toe(s) M79.675 Assessments Encounter Date Diagnosis (ICD Code) Assessment Notes Treatment Notes Treatment Clinical Notes Section Notes 01/14/2024 Fungal infection of nail (ICD-10 - B35.1) 03/30/2024 Fungal infection of nail (ICD-10 - B35.1) 06/01/2024 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, bilateral legs (ICD-10 - I70.213) 06/01/2024 Onychomycosis (ICD-10 - B35.1) Nails 1-5 Bilateral were debrided extensively with nail nippers and emery board, reducing length and girth to pink healthy tissue with any subungual debris and necrotic tissue removed 08/03/2024 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, bilateral legs (ICD-10 - I70.213) 11/02/2024 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, bilateral [...] (ICD-10 - M79.675) 03/30/2024 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, bilateral legs (ICD-10 - I70.203) 01/14/2024 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, bilateral legs (ICD-10 - [...] Details Provider Name:DEE LISA, 01/04/2025 08:50:00 AM, [address], [address], [phone], Insurance Providers Payer Name Payer Address Payer Phone Subscriber Number Group Number Insured Name Patient Relationship to Insured Coverage Start Date Coverage End Date [employer] PPO [address] [place], [place] [id number] VALE ARANDA Self - patient is the insured Medicare Part B [place] [address] [place] [address] [id number] VALE PFEIFFER Self - patient is the insured Medical (General) History Medical History History ICD Code acid reflux artificial joint fibromyalgia GERD Respiratory disease Sleep apnea Back Trouble Psychiatric Disorder hypertension Surgical History Surgery Date(Month/Year) Brain surgery Right foot surgery Right wrist surgery Bladder surgery
--- OUTSIDE RECORDS SUMMARY | 2024-12-20 08:11 | XMS_ITS | Encounter Summary ---
Author Organization [facility] Address [address] [place] [address] Care Team Providers Care Examination Supervisor Name Role Phone JaviersvetlanaYannick talleyian Primary Care Provider Encounter Details Date Type Department Care Team (Late st Contact Info) Description 07/30/2005 Outpatient Historical [facility] Nikolas Bowie Jr., [place] [facility] [place] [address] Er, Authorized P NO ADDRESS ON FILE UNSPECIFIED VIRAL INFECTION (Primary Dx) Social History Tobacco Use Types Packs/Day Years Used Date Smoking Tobacco: Never Assessed Comments Unknown Sex and Gender Information Value Date Recorded Sex Assigned at Not on file Legal Sex Female 4:51 AM PATIENT ACCOUNTS CLERK Gender Identity Not on file Sexual Orientation Not on file documented as of this encounter Plan of Treatment Upcoming Encounters Date Type Department Care Team (Late st Contact Info) Description 09/05/2025 10:00 AM PATIENT ACCOUNTS CLERK Office Visit [facility] - [place] [address] [facility] [address] [place] [address] Saul Perez MD [address] [facility] [address] [place] [address] documented as of this encounter Procedures Procedure Name Priority Date/Time Associated Diagnosis Comments CBC WITH DIFFERENTIAL Routine 07/30/2005 4:06 PM PATIENT ACCOUNTS CLERK CBC WITH DIFFERENTIAL Routine 07/30/2005 4:06 PM PATIENT ACCOUNTS CLERK documented in this encounter Results * (ABNORMAL) CBC WITH DIFFERENTIAL (07/30/2005 4:06 PM PATIENT ACCOUNTS CLERK) Pathologist [facility] NEUTROPHILS 83(H) 45 - 70 % INTERFAC [...] 0.20 K/uL INTERFACE SYSTEM 07/30/2005 4:06 PM PATIENT ACCOUNTS CLERK Historical Provider HEMATOLOGY ORDERABLES Final Result INTERFACE SYSTEM Refer to clinic/hospital department * (ABNORMAL) CBC WITH DIFFERENTIAL (07/30/2005 4:06 PM PATIENT ACCOUNTS CLERK) Pathologist [facility] WBC 12.9(H) 4.0 - 9.8 K/uL INTERFACE [...] 12.4 fL INTERFACE SYSTEM 07/30/2005 4:06 PM PATIENT ACCOUNTS CLERK us Historical Provider HEMATOLOGY ORDERABLES Final Result INTERFACE SYSTEM Refer to clinic/hospital department documented in this encounter Visit Diagnoses Diagnosis Unspecified viral infection, in conditions classified elsewhere and of unspecified site- Primary documented in this encounter Care Teams Examination Supervisor Relationship Specialty Start Date End Date Yannick Umanzor DO [address] [facility] [address] [place] [address] PCP - General Internal Medicine 11/07/21 documented as of this encounter
[2024-12-20 08:17] LABS: Basophils Absolute Auto 0.1 K/mm3 (0.0-0.1); Basophils Percent Auto 0.5 % (0.2-1.2); Eosinophils Absolute Auto 0.1 K/mm3 (0-0.3); Eosinophils Percent Auto 0.8 % (0-4.4); Hematocrit 41.7 % (37.0-47.0); Hemoglobin 14.1 g/dL (12.0-15.0); Immature Granulocyte Absolute 0.16 K/mm3 (0.00-0.031); Immature Granulocyte Percent A 1.6 % (0-0.5); Lymphocytes Absolute Auto 1.81 K/mm3 (0.9-3.2); Lymphocytes Percent Auto 18.2 % (18.3-44.2); Mean Corpuscular HGB Conc 33.8 g/dl (32-36); Mean Corpuscular Hemoglobin 31.9 pg (26-34); Mean Corpuscular Volume 94.3 fl (80-100); Mean Platelet Volume 8.8 fl (7.4-10.4); Monocytes Absolute Auto 0.8 K/mm3 (0.1-0.6); Monocytes Percent Auto 8.4 % (2.6-8.5); Neutrophils Percent Auto 70.5 % (45.5-73.1); Platelet Count Result 274 k/mm3 (150-375); Red Blood Count 4.42 M/mm3 (4.2-5.4); Red Cell Distribution Width 13.7 % (11.5-14.5); White Blood Count 9.9 K/mm3 (4.5-10.0)
[2024-12-20 08:31] LABS: Alanine Aminotransferase 36 U/L (6-35); Albumin Level 3.3 g/dL (3.5-5.1); Alkaline Phosphatase 72 U/L (38-126); Anion Gap 10 mmol/L (4-12); Aspartate Amino Transferase 74 U/L (14-36); Blood Urea Nitrogen 20 mg/dL (7-17); Calcium 8.7 mg/dL (8.4-10.2); Carbon Dioxide 29 mmol/L (22-30); Chloride 95 mmol/L (98-107); Estimated CRCL calculation 33 ml/min; Estimated Glomerular Filt Rate 27; Glucose 92 mg/dL (65-110); Potassium 2.2 mmol/L (3.4-5.0); Sodium 134 mmol/L (137-145)
[2024-12-20 08:45] LABS: Appearance Urine Sl Cloudy (Clear); Color Urine Yellow (Yellow); pH Urine 5.5 (5.0-8.0)
[2024-12-20 08:46] LABS: Add Urine Microscopic? YES; Bilirubin Urine 1+ (Negative); Blood Urine Negative (Negative); Glucose Urine UA Negative (Negative); Ketones Urine Trace (Negative); Leukocyte Esterase Ur 1+ LEU/UL (Negative); Nitrate Urine Negative (Negative); Protein Urine Negative (Negative); Urobilinogen Urine 0.2 mg/dL (0.2-1.0)
[2024-12-20 08:49] LABS: Influenza A QL RT-PCR Negative (Negative); Influenza B QL RT-PCR Negative (Negative); RSV RNA, RT-PCR Negative (Negative); SARS-CoV-2 RNA PCR Negative (Negative)
[2024-12-20 08:52] LABS: Bacteria Urine 4+ /hpf; Need Manual Microscopic Reviewed; RBC Urine 0-2 /hpf (0-2); Squamous Epithelial Cell Urine Occasional /hpf (Few)
[2024-12-20] MEDS: POTASSIUM CHLORIDE 20 MEQ ER TABLET 40 MEQ PO ×2 (08:53→22:26)
[2024-12-20] MEDS: POTASSIUM CHLORIDE INJ 40 MEQ in SODIUM CHLORIDE 0.9% IV 500 ML 130 MEQ IVPB ×2 (08:54→22:19)
--- NOTE | 2024-12-20 10:07 | ED.GENADULT ---
HPI - General Adult General Chief complaint: Weakness Stated complaint: SOB, weakness History of Present Illness HPI narrative: Patient is a 69-year-old female who presents ER from her senior living for weakness. Unable to get up and perform activities. Has been getting rehabilitation due to weakness. Reports yesterday she was able to push her self around in a wheelchair but is unable do so today. No chest pain or shortness of breath. No vomiting. No fevers or chills. Denies urinary symptoms. Related Data Home Medications ?Medication ?Instructions ?Recorded ?Confirmed ?Last Taken ?Type duloxetine 60 mg capsule,delayed 60 mg PO BID 01/21/21 09/12/24 Unknown History release (Cymbalta) cholecalciferol (vitamin D3) 250 250 mcg PO DAILY 01/02/22 09/12/24 Unknown History mcg (10,000 unit) capsule trazodone 100 mg tablet 200 mg PO QHS PRN Insomnia 01/02/22 09/12/24 Unknown History ascorbic acid (vitamin C) 1,000 mg 2 g PO DAILY 09/08/23 09/12/24 Unknown History chewable tablet aspirin 81 mg tablet,delayed 81 mg PO DAILY 09/08/23 09/12/24 Unknown History release bupropion HCl 150 mg 24 hr tablet, 150 mg PO HS 09/08/23 09/12/24 Unknown History extended release carvedilol 12.5 mg tablet 12.5 mg PO BID 09/08/23 09/12/24 Unknown History ferrous sulfate 325 mg (65 mg 325 mg PO DAILY 09/08/23 09/12/24 Unknown History iron) tablet lamotrigine 200 mg tablet 200 mg PO BID 09/08/23 09/12/24 Unknown History lorazepam 2 mg tablet 2 mg PO TID 09/08/23 09/12/24 Unknown History oxybutynin chloride 10 mg 10 mg PO DAILY 09/08/23 09/12/24 Unknown History tablet,extended release 24 hr sertraline 100 mg tablet 100 mg PO BID 09/08/23 09/12/24 Unknown History vitamin B complex 2 tablet PO DAILY 09/08/23 09/12/24 Unknown History varenicline tartrate 0.03 mg/spray 0.03 mg intranasal BID 03/14/24 09/12/24 Unknown History metered nasal spray (Tyrvaya) Allergies Allergy/AdvReac Type Severity Reaction Status Date / Time acyclovir (From Zovirax) Allergy Severe Hives Verified 12/20/24 08:17 Iodinated Contrast Media Allergy Intermediate Rash Verified 12/20/24 08:17 omeprazole (From Prilosec) AdvReac Intermediate hyperventil Verified 12/20/24 08:17 ate Review of Systems Review of Systems: All systems reviewed & are unremarkable except as noted in HPI and below Constitutional: Constitutional: Reports no additional constitutional complaints ENT: Reports system reviewed and no additional complaints, except as documented Cardiovascular: Cardiovascular: Reports no additional cardiovascular complaints Respiratory: Respiratory: Reports no additional respiratory complaints Gastrointestinal: Gastrointestinal: Reports no additional gastrointestinal complaints Musculoskeletal: Musculoskeletal: Reports no additional musculoskeletal complaints PMFSH Past Medical History Medical History CKD (chronic kidney disease) Nocturnal oxygen desaturation Body mass index (BMI) of 40.1-44.9 in adult Deafness in left ear JERED (iron deficiency anemia) Lymphedema Dysuria Fracture of left upper extremity Distal radius fracture, left July 2020 Shortness of Breath Decreased diffusion capacity History of tobacco abuse Exercise hypoxemia Brain tumor HTN (hypertension) Obstructive sleep apnea on CPAP Bipolar 1 disorder SIMEON (obstructive sleep apnea) With CPAP use GERD (gastroesophageal reflux disease) Depression Anxiety Surgical History Surgical History History of bladder suspension procedure March 2017 Hx of tonsillectomy History of brain surgery 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 She has 3 children. She is disabled. She quit smoking 5 years ago. The patient denies any marijuana alcohol or illicit drugs. Her is a durable power rotary furnace operator for healthcare. Primary care physician: Dr. Yannick Umanzor Code status: Full code Smoking packs per day: 1 Smoking cigarettes per day: 20.0 Years smoked: 40 Smoking pack-years: 40.00 Smoking status: Former smoker Tobacco type: cigarettes Second hand tobacco smoke exposure: No Smoking end date: 08/23/14 Alcohol intake: never Substance use: never Substance use type: does not use Do You Feel Safe in your Home?: Yes Lack of Transportation: No Lack of Food: Never True Current Housing: I Have Housing Concerned About Future Housing: No Difficulty Paying Gas/Electric Bills: No Difficulty Paying for Meds: No Currently Unemployed: No Education: Associate Degree Difficulty w/ Childcare or Family Care: No Living arrangements: with family Additional living arrangements comments: [facility] Occupation/Education: retired Additional occupation/education comments: 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 Gender identity (if verbalized by the patient): Female Spiritual care concerns: No Exam Narrative: GENERAL: Chronically ill-appearing, morbidly obese, and in no acute distress. HEAD: Normocephalic, atraumatic. ENT: Mucous membranes moist. CHEST: Clear to auscultation. No respiratory distress. HEART: Regular rate and rhythm. No murmur heard. Normal peripheral pulses. ABDOMEN: Soft, nontender, nondistended, normal active bowel sounds. EXTREMITIES: Normal strength and range of motion arms. Legs she can lift up off the bed but is fatigued/week. Chronic lymphedema. SKIN: Warm, dry, no rash. NEURO: Alert and oriented x3. PSYCH: Normal mood and affect. Course Course Emergency Course: IV and oral potassium supplementation ordered. Patient where diagnosis and treatment plan. Patient accepted by hospitalist service. Vital Signs Vital signs: Vital Signs Temperature 98.2 F 12/20/24 07:56 Pulse Rate 82 12/20/24 07:56 Respiratory Rate 22 H 12/20/24 07:56 Blood Pressure 109/63 12/20/24 07:56 Pulse Oximetry 95 12/20/24 07:56 Oxygen Delivery Room Air 12/20/24 07:56 Temperature 97.6 F 12/20/24 12:07 Pulse Rate 75 12/20/24 12:07 Respiratory Rate 18 12/20/24 12:07 Blood Pressure 121/66 12/20/24 12:07 Pulse Oximetry 100 12/20/24 12:07 Oxygen Delivery Room Air 12/20/24 07:56 Medical Decision Making Vital Signs Vital Signs: Vital Signs Temperature 98.2 F 12/20/24 07:56 Pulse Rate 82 12/20/24 07:56 Respiratory Rate 22 H 12/20/24 07:56 Blood Pressure 109/63 12/20/24 07:56 Pulse Oximetry 95 12/20/24 07:56 Oxygen Delivery Room Air 12/20/24 07:56 Temperature 97.6 F 12/20/24 12:07 Pulse Rate 75 12/20/24 12:07 Respiratory Rate 18 12/20/24 12:07 Blood Pressure 121/66 12/20/24 12:07 Pulse Oximetry 100 12/20/24 12:07 Oxygen Delivery Room Air 12/20/24 07:56 Lab Data 12/20/24 08:08 12/20/24 08:08 Labs: Lab Results 12/20/24 12/20/24 Range/Units 08:08 08:12 WBC 9.9 (4.5-10.0) K/mm3 RBC 4.42 (4.2-5.4) M/mm3 Hgb 14.1 (12.0-15.0) g/dL Hct 41.7 (37.0-47.0) % MCV 94.3 (80-100) fl MCH 31.9 (26-34) pg MCHC 33.8 (32-36) g/dl RDW 13.7 (11.5-14.5) % Plt Count 274 (150-375) k/mm3 MPV 8.8 (7.4-10.4) fl Immature Gran % (Auto) 1.6 H (0-0.5) % Neut % (Auto) 70.5 (45.5-73.1) % Lymph % (Auto) 18.2 L (18.3-44.2) % Snyder % (Auto) 8.4 (2.6-8.5) % Eos % (Auto) 0.8 (0-4.4) % Baso % (Auto) 0.5 (0.2-1.2) % Lymph # (Auto) 1.81 (0.9-3.2) K/mm3 Snyder # (Auto) 0.8 H (0.1-0.6) K/mm3 Eos # (Auto) 0.1 (0-0.3) K/mm3 Baso # (Auto) 0.1 (0.0-0.1) K/mm3 Abs Immat Gran (auto) 0.16 H (0.00-0.031) K/mm3 Absolute Neuts (auto) 7.0 H (1.3-6.7) K/mm3 Absolute Nucleated RBC 0.000 (0.0-0.012) K/mm3 Nucleated RBC % 0.0 (0.0-0.2) % Sodium 134 L (137-145) mmol/L Potassium 2.2 L* (3.4-5.0) mmol/L Chloride 95 L (98-107) mmol/L Carbon Dioxide 29 (22-30) mmol/L Anion Gap 10 (4-12) mmol/L BUN 20 H (7-17) mg/dL Creatinine 1.86 H (0.7-1.0) mg/dL Estim Creat Clear Calc 33 ml/min Estimated GFR 27 L (59 - ) Glucose 92 (65-110) mg/dL Calcium 8.7 (8.4-10.2) mg/dL Total Bilirubin 1.0 (0.2-1.3) mg/dL AST 74 H (14-36) U/L ALT 36 H (6-35) U/L Alkaline Phosphatase 72 (38-126) U/L Total Protein 6.0 L (6.3-8.2) g/dL Albumin 3.3 L (3.5-5.1) g/dL TSH (Reflex) 1.910 (0.465-4.68) uIU/mL Urine Color Yellow (Yellow) Urine Appearance Sl cloudy A (Clear) Urine pH 5.5 (5.0-8.0) Ur Specific [place] 1.010 (1.010-1.020) Urine Protein Negative (Negative) Urine Glucose (UA) Negative (Negative) Urine Ketones Trace H (Negative) Ur Blood (Man) Negative (Negative) Urine Nitrate Negative (Negative) Urine Bilirubin 1+ H (Negative) Urine Urobilinogen 0.2 (0.2-1.0) mg/dL Add Ur Microanalysis Reviewed Leukocyte Esterase Rfl 1+ H (Negative) ROBYN/UL Urine RBC 0-2 (0-2) /hpf Urine WBC 11-20 H (0-3) /hpf Ur Squamous Epith Cells Occasional (Few) /hpf Urine Bacteria 4+ H /hpf Urine Casts 11-20 Influenza A (RT-PCR) Negative (Negative) Influenza B (RT-PCR) Negative (Negative) RSV (RT-PCR) Negative (Negative) SARS-CoV-2 RNA (RT-PCR) Negative (Negative) Imaging Data Radiologist's impression: ITS Impressions Chest X-Ray 12/20/24 09:02 IMPRESSION: 1: NO ACUTE CARDIOPULMONARY DISEASE. ECG Data EKG #1: ECG completion date: 12/20/24 ECG completion time: 08:03 EKG Interpretation: normal rate (79), sinus rhythm, non-specific ST changes, normal QRS, RBBB (incomplete), normal QT and NL axis Critical Care Time Critical Care Time Critical Care Time: Yes Total Critical Care Time: 35 Discharge Plan Discharge Clinical Impression: Acute hypokalemia, Generalized weakness Patient Disposition: Home Condition: Stable
--- NOTE | 2024-12-20 12:32 | PM.IMHP ---
H&P: HPI History of Present Illness Date/Time: 12/20/24 12:32 Chief Complaint: Weakness Narrative: 69 y/o F with PMH of lymphedema, brain tumor (benign pineal cystoma, s/p removal in 1995), hypertension, SIMEON on CPAP, bipolar 1 disorder, GERD, and depression/anxiety presents here with generalized weakness. The patient presents here from [facility] via EMS on 12/20/2024 for further evaluation of generalized weakness. She has been at [facility] for the past month for physical therapy and occupational therapy after she had presented to [place] ER on 11/09 for multiple falls secondary to bilateral lower extremity weakness. She was evaluated by PT/OT in the ER and met criteria for acute rehab. Plan for discharge from rehab was scheduled for yesterday, 12/19, however the patient did not feel well enough to go home independently. She reports she was initially doing well and felt stronger, however she felt she started to regress 2 weeks ago. Now having difficulty getting out of bed, had a few falls at the facility with most recent a few days ago, and no longer walking with her rollator. Generalized weakness is accompanied by a fine to moderate tremor in her upper extremities and intermittent nausea/vomiting (believes this is likely a side effect of her medications). She denies fever, chills, body aches, abdominal pain, chest pain, shortness of breath (baseline has some exertional SOB), or diarrhea. Initial VS at presentation: 98.2? F, HR 82, R 22, 109/63, and 95% on RA. ED workup showed: No leukocytosis, no anemia, sodium 134, potassium 2.2, creatinine 1.86 and GFR 27 (previously 1.38 and GFR 38 on 11/09/2024), UA suggestive of UTI, viral PCR negative. CXR showed no acute cardiopulmonary process. EKG showed sinus rhythm, rate 79, incomplete RBBB, nonspecific ST and T-wave abnormality diffuse leads. Review of Systems Review of Systems: All systems reviewed & are unremarkable except as noted in HPI and below PMFSH Past Medical History Medical History CKD (chronic kidney disease) Nocturnal oxygen desaturation Body mass index (BMI) of 40.1-44.9 in adult Deafness in left ear JERED (iron deficiency anemia) Lymphedema Dysuria Fracture of left upper extremity Distal radius fracture, left July 2020 Shortness of Breath Decreased diffusion capacity History of tobacco abuse Exercise hypoxemia Brain tumor HTN (hypertension) Obstructive sleep apnea on CPAP Bipolar 1 disorder SIMEON (obstructive sleep apnea) With CPAP use GERD (gastroesophageal reflux disease) Depression Anxiety Surgical History Surgical History History of bladder suspension procedure March 2017 Hx of tonsillectomy History of brain surgery 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 She has 3 children. She is disabled. She quit smoking 5 years ago. The patient denies any marijuana alcohol or illicit drugs. Her is a durable power claim attorney for healthcare. Primary care physician: Dr. Yannick Umanzor Code status: Full code Smoking packs per day: 1 Smoking cigarettes per day: 20.0 Years smoked: 40 Smoking pack-years: 40.00 Smoking status: Former smoker Tobacco type: cigarettes Second hand tobacco smoke exposure: No Smoking end date: 08/23/14 Alcohol intake: never Substance use: never Substance use type: does not use Do You Feel Safe in your Home?: Yes Lack of Transportation: No Lack of Food: Never True Current Housing: I Have Housing Concerned About Future Housing: No Difficulty Paying Gas/Electric Bills: No Difficulty Paying for Meds: No Currently Unemployed: No Education: Associate Degree Difficulty w/ Childcare or Family Care: No Living arrangements: with family Additional living arrangements comments: [facility] Occupation/Education: retired Additional occupation/education comments: 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 Gender identity (if verbalized by the patient): Female Spiritual care concerns: No Meds Home Medications and Allergies Home Medications ?Medication ?Instructions ?Recorded ?Confirmed ?Type duloxetine 60 mg capsule,delayed 60 mg PO Q12H 01/21/21 12/20/24 History release (Cymbalta) cholecalciferol (vitamin D3) 250 250 mcg PO 1200 01/02/22 12/20/24 History mcg (10,000 unit) capsule trazodone 100 mg tablet 200 mg PO QHS PRN Insomnia 01/02/22 12/20/24 History Overnight Ox #1 ea 05/13/22 09/12/24 Rx albuterol sulfate 90 mcg/actuation 1 - 2 puff inhalation Q4-6H PRN 02/08/23 12/20/24 Rx aerosol inhaler shortness of breath or wheezing #8.5 grams ascorbic acid (vitamin C) 1,000 mg 2 g PO 1200 09/08/23 12/20/24 History chewable tablet aspirin 81 mg tablet,delayed 81 mg PO DAILY 09/08/23 12/20/24 History release bupropion HCl 150 mg 24 hr tablet, 150 mg PO HS 09/08/23 12/20/24 History extended release carvedilol 12.5 mg tablet 12.5 mg PO Q12H 09/08/23 12/20/24 History ferrous sulfate 325 mg (65 mg 325 mg PO 1200 09/08/23 12/20/24 History iron) tablet lamotrigine 200 mg tablet 200 mg PO Q12H 09/08/23 12/20/24 History lorazepam 2 mg tablet 2 mg PO BID 09/08/23 12/20/24 History oxybutynin chloride 10 mg 10 mg PO DAILY 09/08/23 12/20/24 History tablet,extended release 24 hr sertraline 100 mg tablet 100 mg PO Q12H 09/08/23 12/20/24 History vitamin B complex 2 tablet PO 1200 09/08/23 12/20/24 History amlodipine 5 mg tablet 5 mg PO HS #90 tabs 01/05/24 12/20/24 Rx varenicline tartrate 0.03 mg/spray 0.03 mg intranasal Q12H 03/14/24 12/20/24 History metered nasal spray (Tyrvaya) hydrochlorothiazide 12.5 mg tablet 12.5 mg PO QAM #90 tabs 06/15/24 12/20/24 Rx pantoprazole 40 mg tablet,delayed See Rx Instructions .Route 01/02/25 04/30/25 Rx release .COMPLEX #90 tabs semaglutide (weight loss) 1 mg/0.5 1 mg (0.5 mL) subcut Q7D #2 mL 11/08/24 12/20/24 Rx mL subcutaneous pen injector (Peggy) acetaminophen 325 mg capsule 650 mg PO Q4H PRN pain (scale 12/20/24 12/20/24 History score 1-3) loperamide 2 mg tablet 2 mg PO QID PRN diarrhea 12/20/24 12/20/24 History (Anti-Diarrheal (loperamide)) Allergies Allergy/AdvReac Type Severity Reaction Status Date / Time acyclovir (From Zovirax) Allergy Severe Hives Verified 12/20/24 18:01 Iodinated Contrast Media Allergy Intermediate Rash Verified 12/20/24 18:01 omeprazole (From Prilosec) AdvReac Intermediate hyperventil Verified 12/20/24 18:01 ate Vital Signs Vital Signs - 24 hr 12/20/24 07:56 12/20/24 08:06 12/20/24 09:29 Temperature 98.2 F Pulse Rate 82 75 75 Respiratory Rate 22 H 20 Blood Pressure 109/63 113/62 Pulse Oximetry 95 97 Oxygen Delivery Room Air 12/20/24 10:34 12/20/24 12:07 Temperature 97.6 F Pulse Rate 77 75 Respiratory Rate 20 18 Blood Pressure 114/51 L 121/66 Pulse Oximetry 94 100 Oxygen Delivery Exam Narrative: fine to moderate tremor to BUE and central to head. Const: General: comfortable and no acute distress Other: , female, obese body habitus, chronically ill-appearing HENMT: Face/Nose/Sinus: Normal nares present Mouth: Yes moist mucous membranes Eyes: General: appearance normal, both eyes and all related structures Sclera: sclerae normal Pupils: Equal, round and reactive pupils present EOM: EOMs intact bilaterally Resp: Effort & Inspection: normal respiratory effort Auscultation: clear to auscultation bilaterally Cardio: Rate: regular rate Rhythm: regular rhythm Other: S1-S2 present without murmur, rub, ectopy GI: Other: Abdomen soft, nondistended, nontender. Normoactive bowel sounds in all quadrants. Skin: General skin exam: normal color and no rashes or lesions noted Wounds: no wounds Neuro: Speech: normal speech Motor exam (neuro): 5/5 motor strength present throughout Sensory Exam: normal sensation Other: A&O x4, +generalized weakness, fine tremor to bilateral upper extremities and centrally to head/neck. Tremor worsens with intention. Extrem: Other: Trace edema to bilateral ankles, symmetric. Nonpitting. Psych: Mental Status: mental status grossly normal Affect: normal affect Other: Good insight and judgment, pleasant H&P: Results Labs Labs: Short CBC 12/20/24 Range/Units 08:08 WBC 9.9 (4.5-10.0) K/mm3 Hgb 14.1 (12.0-15.0) g/dL Hct 41.7 (37.0-47.0) % Plt Count 274 (150-375) k/mm3 BMP 12/20/24 08:08 Sodium 134 L Potassium 2.2 L* Chloride 95 L Carbon Dioxide 29 BUN 20 H Creatinine 1.86 H Glucose 92 Calcium 8.7 Liver Function 12/20/24 Range/Units 08:08 Total Bilirubin 1.0 (0.2-1.3) mg/dL AST 74 H (14-36) U/L ALT 36 H (6-35) U/L Alkaline Phosphatase 72 (38-126) U/L Albumin 3.3 L (3.5-5.1) g/dL Urine 12/20/24 Range/Units 08:12 Urine Color Yellow (Yellow) Urine Appearance Sl cloudy A (Clear) Urine pH 5.5 (5.0-8.0) Ur Specific [place] 1.010 (1.010-1.020) Urine Protein Negative (Negative) Urine Glucose (UA) Negative (Negative) Assessment and Plan Assessment and plan (1) Weakness: Code(s): R53.1 - Weakness Status: Acute Assessment and Plan: - CXR showed no acute cardiopulmonary disease - no anemia - UA suggestive of UTI, see below - hypokalemia noted, likely complication of JERRY superimposed on CKD. Antibiotics for UTI, correct potassium, IV fluids. PT/OT re-evaluation for discharge planning. (2) UTI (urinary tract infection): Qualifiers: Hematuria presence: without hematuria Urinary tract infection type: acute cystitis Qualified Code(s): N30.00 - Acute cystitis without hematuria Code(s): N39.0 - Urinary tract infection, site not specified Status: Acute Assessment and Plan: - UA: Cloudy, trace ketones, 1+ bilirubin, 1+ leuks, 11-20 WBC, occasional epithelial cells, 4+ bacteria. Contaminant verses infection. - UC pending, follow - previous micro reviewed, no recent positive cultures - started on Ceftriaxone on 12/20 (3) Acute kidney injury superimposed on CKD: Code(s): N17.9 - Acute kidney failure, unspecified; N18.9 - Chronic kidney disease, unspecified Status: Acute Assessment and Plan: - creatinine 1.86, BUN 20, GFR 27. Previously 1.38, BUN 16, GFR 38 on 11/09/2024 - IV fluids: 100 mL/hr x2L - suspect injury secondary to UTI, will trial IV fluids and antibiotics for the next 24 hours. If no improvement in renal function, consider Nephrology consultation. (4) Hypokalemia: Code(s): E87.6 - Hypokalemia Status: Acute Assessment and Plan: - K 2.2 - initial repletion with 40 KCl PO and 40 KCl IV, recheck this evening - reporting new fine tremor in the last month, worsens with intention on exam. May be exacerbated by hypokalemia. Monitor. - monitor (5) HTN (hypertension): Qualifiers: Hypertension type: essential hypertension Qualified Code(s): I10 - Essential (primary) hypertension Code(s): I10 - Essential (primary) hypertension Status: Chronic Assessment and Plan: - chronic, currently 106/75 - home medications: Hold amlodipine, carvedilol, and hydrochlorothiazide. Resume when appropriate. - monitor (6) Obstructive sleep apnea on CPAP: Code(s): G47.33 - Obstructive sleep apnea (adult) (pediatric); Z99.89 - Dependence on other enabling machines and devices Status: Acute Assessment and Plan: - continue home CPAP Plan Diet: Heart healthy GI Prophylaxis: Not currently indicated DVT Prophylaxis: SCDs IV fluids: 100 mL/hr x2L Lines/Tubes: Peripheral IV Code Status: Full code Quality VTE Prophylaxis VTE prophylaxis: mechanical ordered Hospitalist [facility] Advance Care Plan I have confirmed that the patient's Advanced Care Plan is present, code status is documented, or surrogate decision maker is listed in patient medical record.: Yes Medication Reconciliation I have utilized all available resources to obtain, update and review the patients current medications (includes all prescriptions, OTC, herbals, cannabis, and nutritional supplements).: Yes
--- NOTE | 2024-12-20 17:00 | ADMGEN ---
This patient, Leydi Su, was admitted to 2 Medical Room 240-. Patient/family oriented to hospital policies and general routines including ID bracelet, bed and alarms, visiting hours, pain management, procedures, bathroom and other care routines, personal items, smoking policy, room service/diet, and visiting hours. Information on how to activate the Rapid Response Team has been discussed. Patient/Family are encouraged to report perceived risks to care and to ask questions if they do not understand what they are told or what they should do.
[2024-12-20] MEDS: SODIUM CHLORIDE 0.9% IV 1,000 ML 100 ML IV CONT (19:00)
[2024-12-20 20:01] LABS: Anion Gap 11 mmol/L (4-12); Blood Urea Nitrogen 21 mg/dL (7-17); Calcium 8.9 mg/dL (8.4-10.2); Carbon Dioxide 26 mmol/L (22-30); Chloride 99 mmol/L (98-107); Estimated CRCL calculation 40 ml/min; Estimated Glomerular Filt Rate 35; Glucose 93 mg/dL (65-110); Potassium 2.9 mmol/L (3.4-5.0); Sodium 136 mmol/L (137-145)
[2024-12-20] MEDS: DULoxetine HCL 60 MG CAPSULE.DR PO (20:44)
[2024-12-20] MEDS: buPROPion HCL XL (24 HR) 150 MG TABCR PO (20:45)
[2024-12-20] MEDS: lamoTRIgine 100 MG TABLET 200 MG PO (20:45)
[2024-12-20] MEDS: SERTRALINE HCL 50 MG TABLET 100 MG PO (20:45)
[2024-12-20] MEDS: LORazepam (*CRX) 1 MG TABLET 2 MG PO (20:45)
--- NOTE | 2024-12-20 21:14 | PCRCNOTE ---
Patient states she does not wear her home cpap unit and refuses a hospital unit for her stay. Patient states she cannot tolerate the face mask. Patient has tried nasal pillows as well and can not tolerate. RT explained the importance of wearing a cpap with a bull diagnosis. Nurse is aware.
[2024-12-20] MEDS: LOPERAMIDE HCL 2 MG CAPSULE PO (22:19)
[2024-12-20 23:16] LABS: Toxigenic C. Diff NEGATIVE (NEGATIVE)
[2024-12-21] VITALS (10 sets, daily range): BP systolic 104–134; BP diastolic 52–110; PULSE 81–97; RESP 12–30; TEMP 36.6–37.6; O2SAT 93–97
[2024-12-21 02:48] LABS: Anion Gap 9 mmol/L (4-12); Blood Urea Nitrogen 20 mg/dL (7-17); Calcium 8.2 mg/dL (8.4-10.2); Carbon Dioxide 23 mmol/L (22-30); Chloride 105 mmol/L (98-107); Estimated CRCL calculation 39 ml/min; Estimated Glomerular Filt Rate 34; Glucose 94 mg/dL (65-110); Potassium 3.2 mmol/L (3.4-5.0); Sodium 137 mmol/L (137-145)
[2024-12-21 05:27] LABS: Basophils Absolute Auto 0.1 K/mm3 (0.0-0.1); Basophils Percent Auto 0.7 % (0.2-1.2); Eosinophils Absolute Auto 0.1 K/mm3 (0-0.3); Eosinophils Percent Auto 0.7 % (0-4.4); Hematocrit 38.6 % (37.0-47.0); Hemoglobin 12.5 g/dL (12.0-15.0); Immature Granulocyte Absolute 0.14 K/mm3 (0.00-0.031); Immature Granulocyte Percent A 1.3 % (0-0.5); Lymphocytes Absolute Auto 2.18 K/mm3 (0.9-3.2); Lymphocytes Percent Auto 19.9 % (18.3-44.2); Mean Corpuscular HGB Conc 32.4 g/dl (32-36); Mean Corpuscular Hemoglobin 31.7 pg (26-34); Mean Platelet Volume 9.4 fl (7.4-10.4); Monocytes Percent Auto 9.4 % (2.6-8.5); Neutrophils Absolute Auto 7.4 K/mm3 (1.3-6.7); Platelet Count Result 253 k/mm3 (150-375); Red Blood Count 3.94 M/mm3 (4.2-5.4); Red Cell Distribution Width 13.8 % (11.5-14.5); White Blood Count 10.9 K/mm3 (4.5-10.0)
[2024-12-21 05:42] LABS: Anion Gap 7 mmol/L (4-12); Blood Urea Nitrogen 19 mg/dL (7-17); Calcium 8.2 mg/dL (8.4-10.2); Carbon Dioxide 25 mmol/L (22-30); Chloride 105 mmol/L (98-107); Estimated CRCL calculation 40 ml/min; Estimated Glomerular Filt Rate 35; Glucose 79 mg/dL (65-110); Potassium 3.2 mmol/L (3.4-5.0); Sodium 137 mmol/L (137-145)
[2024-12-21] MEDS: ASPIRIN 81 MG ENTERIC TABLET PO (09:23)
[2024-12-21] MEDS: DULoxetine HCL 60 MG CAPSULE.DR PO ×2 (09:23→21:29)
[2024-12-21] MEDS: SODIUM CHLORIDE 0.9% IV 1,000 ML 100 ML IV CONT (09:23)
[2024-12-21] MEDS: POTASSIUM CHLORIDE 20 MEQ ER TABLET 40 MEQ PO (09:23)
[2024-12-21] MEDS: lamoTRIgine 100 MG TABLET 200 MG PO ×2 (09:23→21:29)
[2024-12-21] MEDS: LORazepam (*CRX) 1 MG TABLET 2 MG PO ×2 (09:24→21:29)
[2024-12-21] MEDS: SERTRALINE HCL 50 MG TABLET 100 MG PO ×2 (09:24→21:29)
[2024-12-21] MEDS: oxyBUTYnin CHLORIDE XL 5 MG TAB.ER.24 10 MG PO (09:24)
[2024-12-21] MEDS: PANTOPRAZOLE 40 MG TABLET PO (09:24)
[2024-12-21] MEDS: ONDANSETRON INJ 4 MG/2 ML VIAL IV PUSH (09:28)
[2024-12-21 09:39] LABS: Magnesium 1.8 mg/dL (1.6-2.3)
[2024-12-21] MEDS: VITAMIN B COMPLEX CAPSULE 2 CAP PO (12:11)
[2024-12-21] MEDS: FERROUS SULFATE 325 MG TABLET DR PO (12:11)
[2024-12-21] MEDS: ASCORBIC ACID 500 MG TABLET 2000 MG PO (12:12)
--- NOTE | 2024-12-21 16:05 | P.PNIM_ITS ---
Progress Note: A&P Assessment and Plan (1) Weakness: Code(s): R53.1 - Weakness Status: Acute Assessment and Plan: - CXR showed no acute cardiopulmonary disease - no anemia - UA suggestive of UTI, see below - hypokalemia noted, likely complication of JERRY superimposed on CKD. Antibiotics for UTI, correct potassium, IV fluids. PT/OT re-evaluation for discharge planning. (2) UTI (urinary tract infection): Qualifiers: Hematuria presence: without hematuria Urinary tract infection type: acute cystitis Qualified Code(s): N30.00 - Acute cystitis without hematuria Code(s): N39.0 - Urinary tract infection, site not specified Status: Acute Assessment and Plan: UA: Cloudy, trace ketones, 1+ bilirubin, 1+ leuks, 11-20 WBC, occasional epithelial cells, 4+ bacteria. Contaminant verses infection. - UC pending, growing e coli - previous micro reviewed, no recent positive cultures - started on Ceftriaxone on 12/20 (3) Acute kidney injury superimposed on CKD: Code(s): N17.9 - Acute kidney failure, unspecified; N18.9 - Chronic kidney disease, unspecified Status: Acute Assessment and Plan: Creatinine 1.86, BUN 20, GFR 27. Previously 1.38, BUN 16, GFR 38 on 11/09/2024 - IV fluids: 100 mL/hr x2L - suspect injury secondary to UTI, continue fluids (4) Hypokalemia: Code(s): E87.6 - Hypokalemia Status: Acute Assessment and Plan: - K 2.2 - initial repletion with 40 KCl PO and 40 KCl IV, improving - reporting new fine tremor in the last month, worsens with intention on exam. May be exacerbated by hypokalemia. Monitor. - monitor (5) HTN (hypertension): Qualifiers: Hypertension type: essential hypertension Qualified Code(s): I10 - Essential (primary) hypertension Code(s): I10 - Essential (primary) hypertension Status: Chronic Assessment and Plan: - chronic, currently 106/75 - home medications: Hold amlodipine, carvedilol, and hydrochlorothiazide. Resume when appropriate. - monitor (6) Obstructive sleep apnea on CPAP: Code(s): G47.33 - Obstructive sleep apnea (adult) (pediatric); Z99.89 - Dependence on other enabling machines and devices Status: Acute Assessment and Plan: - continue home CPAP (7) Abdominal pain: Qualifiers: Abdominal location: periumbilical Qualified Code(s): R10.33 - Periumbilical pain Code(s): R10.9 - Unspecified abdominal pain Status: Acute Assessment and Plan: Mild generalized abdominal tenderness, RUQ and mid abdomen. Hx cholecystectomy Associated with diarrhea and nausea/vomiting but flu, c-diff, and covid were negative. has an allergy to IV contrast. If worsening would need a noncontrast CT LFT's normal --Follow LFt's, CBC, electrolytes --Check lipase, but not consistent with pancreatitis on exam --Holding wegovy Plan Diet: Heart healthy GI Prophylaxis: Not currently indicated DVT Prophylaxis: SCDs IV fluids: 100 mL/hr x2L Lines/Tubes: Peripheral IV Code Status: Full code Time Spent With Patient Time: 56 minutes Subjective Date/time seen: 12/21/24 16:05 Interval history: Dry heaves this morning Generalized abdominal tenderness Creatinine improving with fluids Review of Systems Review of Systems: All systems reviewed & are unremarkable except as noted in HPI and below Exam Narrative: General - Awake and alert. No acute distress Eyes - PERRLA, EOM intact ENT - No thrush, No erythema Neck - No noticeable or palpable swelling Lymph Nodes - No lymphadenopathy Cardiovascular - RRR no m/r/g, no JVD Lungs: Clear to auscultation, No wheezing, use of accessory muscles, no crackles Skin - Skin warm and dry, no wounds or rashes Abdomen - Normal bowel sounds, abdomen soft, generalized tenderness Extremities - No edema, cyanosis or clubbing Musculoskeletal - 5/5 strength, normal range of motion, no swollen or erythematous joints. Neurological ? Alert and oriented x 3, CN 2-12 grossly intact. Psych: Normal mood and affect Objective Data Vital Signs Vital Signs: Vital Signs - 24 hr 12/20/24 18:40 12/20/24 20:00 12/20/24 20:06 Temperature 98.6 F Pulse Rate 79 80 Respiratory Rate 18 Blood Pressure 90/70 L Pulse Oximetry 100 Oxygen Delivery Room Air 12/20/24 20:33 12/21/24 00:00 12/21/24 04:00 Temperature Pulse Rate 82 82 Respiratory Rate Blood Pressure Pulse Oximetry Oxygen Delivery Room Air 12/21/24 04:30 12/21/24 08:00 12/21/24 08:00 Temperature 98.9 F Pulse Rate 87 84 Respiratory Rate 16 Blood Pressure 132/52 L Pulse Oximetry 96 Oxygen Delivery Room Air 12/21/24 11:24 12/21/24 12:00 12/21/24 14:00 Temperature 97.9 F Pulse Rate 97 91 Respiratory Rate 17 Blood Pressure 104/57 L Pulse Oximetry 95 Oxygen Delivery Room Air 12/21/24 14:08 12/21/24 14:13 Temperature Pulse Rate Respiratory Rate Blood Pressure Pulse Oximetry 95 Oxygen Delivery Room Air Room Air Intake/Output Intake/Output: Intake & Output 12/18/24 12/19/24 12/20/24 12/21/24 23:59 23:59 23:59 23:59 Intake Total 690 2480 Output Total 100 100 Balance 590 2380 Meds/Results Medications: Active Medications Generic Name Dose Route Start Last Admin Trade Name Freq PRN Reason Stop Dose Admin Acetaminophen 650 mg 12/20/24 10:56 Acetaminophen 325 Mg Tablet PO Q4H PRN Mild Pain (1-3) or Fever Hydrocodone Bitart/Acetaminophen 1 tab 12/20/24 10:56 Hydrocodone/Acetaminophen (*Crx) 5-325 Mg Tablet PO Q4H PRN Pain Rated 4-6 Albuterol 1 - 2 puff 12/20/24 18:38 Albuterol Sulfate (*Sp) Aerosol 1 Puff INHALATION Q4-6H PRN shortness of breath or wheezing Ascorbic Acid 2,000 mg 12/21/24 12:00 12/21/24 12:12 Ascorbic Acid 500 Mg Tablet PO 2,000 mg 1200 CARLIN Administration Aspirin 81 mg 12/21/24 09:00 12/21/24 09:23 Aspirin 81 Mg Enteric Tablet PO 81 mg DAILY CARLIN Administration Bupropion HCl 150 mg 12/20/24 21:00 12/20/24 20:45 Bupropion Hcl Xl (24 Hr) 150 Mg Tabcr PO 150 mg HS CARLIN Administration Duloxetine HCl 60 mg 12/20/24 21:00 12/21/24 09:23 Duloxetine Hcl 60 Mg Capsule.Dr PO 60 mg Q12H CARLIN Administration Ferrous Sulfate 325 mg 12/21/24 12:00 12/21/24 12:11 Ferrous Sulfate [address] PO 325 mg 1200 CARLIN Administration Ceftriaxone Sodium 1 gm in 50 mls @ 100 mls/hr 12/20/24 20:00 12/20/24 21:14 Rocephin 1 Gm/Ns 50 Ml IVPB Infused Q24H CARLIN Infusion Lamotrigine 200 mg 12/20/24 21:00 12/21/24 09:23 Lamotrigine 100 Mg Tablet PO 200 mg Q12H CARLIN Administration Loperamide HCl 2 mg 12/20/24 18:38 12/20/24 22:19 Loperamide Hcl 2 Mg Capsule PO 2 mg QID PRN Administration diarrhea Lorazepam 2 mg 12/20/24 21:00 12/21/24 09:24 Lorazepam (*Crx) 1 Mg Tablet PO 2 mg Q12H CARLIN Administration Miscellaneous Information 1 each 12/21/24 00:01 Tyrvaya Nasal [place] Is Nonform; Can Pt Use From Home? XX 01/20/25 00:00 CLARIFY CARLIN Non-Formulary Medication 0.03 mg 12/20/24 18:45 Varenicline Tartrate [Tyrvaya] NASAL 01/19/25 18:44 Q12H REPLACED BY [facility] Ondansetron HCl 4 mg 12/20/24 10:56 12/21/24 09:28 Ondansetron Inj 4 Mg/2 Ml Vial IV PUSH 4 mg Q4H PRN Administration Nausea Oxybutynin Chloride 10 mg 12/21/24 09:00 12/21/24 09:24 Oxybutynin Chloride Xl 5 Mg Tab.Er.24 PO 10 mg DAILY CARLIN Administration Pantoprazole Sodium 40 mg 12/21/24 09:00 12/21/24 09:24 Pantoprazole 40 Mg Tablet PO 40 mg QAM CARLIN Administration Sertraline HCl 100 mg 12/20/24 21:00 12/21/24 09:24 Sertraline Hcl 50 Mg Tablet PO 100 mg Q12H CARLIN Administration Trazodone HCl 200 mg 12/20/24 18:38 Trazodone Hcl 50 Mg Tablet PO QHS PRN Insomnia Vitamin B Complex 2 cap 12/21/24 12:00 12/21/24 12:11 Vitamin B Complex Capsule PO 2 cap 1200 CARLIN Administration Vitamin D 10,000 units 12/21/24 12:00 12/21/24 12:21 Cholecalciferol 1,000 Units Tablet PO Not Given 1200 REPLACED BY [facility] Radiology Results: ITS Impressions Chest X-Ray 12/20/24 09:02 IMPRESSION: 1: NO ACUTE CARDIOPULMONARY DISEASE. Labs Labs: Laboratory Results - last 24 hr 12/20/24 12/20/24 12/21/24 19:31 22:03 01:48 WBC RBC Hgb Hct MCV MCH MCHC RDW Plt Count MPV Immature Gran % (Auto) Neut % (Auto) Lymph % (Auto) [place] % (Auto) Eos % (Auto) Baso % (Auto) Lymph # (Auto) [place] # (Auto) Eos # (Auto) Baso # (Auto) Abs Immat Gran (auto) Absolute Neuts (auto) Absolute Nucleated RBC Nucleated RBC % Sodium 136 L 137 Potassium 2.9 L 3.2 L Chloride 99 105 Carbon Dioxide 26 23 Anion Gap 11 9 BUN 21 H 20 H Creatinine 1.49 H 1.52 H Estim Creat Clear Calc 40 39 Estimated GFR 35 L 34 L Glucose 93 94 Calcium 8.9 8.2 L Magnesium C. difficile (PCR) Negative 12/21/24 12/21/24 04:33 04:36 WBC 10.9 H RBC 3.94 L Hgb 12.5 Hct 38.6 MCV 98.0 MCH 31.7 MCHC 32.4 RDW 13.8 Plt Count 253 MPV 9.4 Immature Gran % (Auto) 1.3 H Neut % (Auto) 68.0 Lymph % (Auto) 19.9 [place] % (Auto) 9.4 H Eos % (Auto) 0.7 Baso % (Auto) 0.7 Lymph # (Auto) 2.18 [place] # (Auto) 1.0 H Eos # (Auto) 0.1 Baso # (Auto) 0.1 Abs Immat Gran (auto) 0.14 H Absolute Neuts (auto) 7.4 H Absolute Nucleated RBC 0.000 Nucleated RBC % 0.0 Sodium 137 Potassium 3.2 L Chloride 105 Carbon Dioxide 25 Anion Gap 7 BUN 19 H Creatinine 1.48 H Estim Creat Clear Calc 40 Estimated GFR 35 L Glucose 79 Calcium 8.2 L Magnesium 1.8 C. difficile (PCR) Quality VTE Prophylaxis VTE prophylaxis: mechanical ordered Hospitalist MIPS Advance Care Plan I have confirmed that the patient's Advanced Care Plan is present, code status is documented, or surrogate decision maker is listed in patient medical record.: Yes Medication Reconciliation I have utilized all available resources to obtain, update and review the patients current medications (includes all prescriptions, OTC, herbals, cannabis, and nutritional supplements).: Yes
[2024-12-21] MEDS: traZODone HCL 50 MG TABLET 200 MG PO (21:29)
[2024-12-21] MEDS: buPROPion HCL XL (24 HR) 150 MG TABCR PO (21:29)
[2024-12-22] VITALS (10 sets, daily range): BP systolic 110–132; BP diastolic 45–53; PULSE 79–93; RESP 16–22; TEMP 36.4–36.9; O2SAT 96–100
[2024-12-22 05:02] LABS: Basophils Absolute Auto 0.1 K/mm3 (0.0-0.1); Basophils Percent Auto 0.6 % (0.2-1.2); Eosinophils Absolute Auto 0.1 K/mm3 (0-0.3); Eosinophils Percent Auto 1.3 % (0-4.4); Hematocrit 38.1 % (37.0-47.0); Hemoglobin 12.3 g/dL (12.0-15.0); Immature Granulocyte Absolute 0.12 K/mm3 (0.00-0.031); Immature Granulocyte Percent A 1.4 % (0-0.5); Lymphocytes Absolute Auto 1.62 K/mm3 (0.9-3.2); Lymphocytes Percent Auto 18.4 % (18.3-44.2); Mean Corpuscular HGB Conc 32.3 g/dl (32-36); Mean Corpuscular Hemoglobin 31.9 pg (26-34); Mean Platelet Volume 8.9 fl (7.4-10.4); Monocytes Absolute Auto 0.9 K/mm3 (0.1-0.6); Monocytes Percent Auto 10.4 % (2.6-8.5); Neutrophils Percent Auto 67.9 % (45.5-73.1); Platelet Count Result 243 k/mm3 (150-375); Red Blood Count 3.85 M/mm3 (4.2-5.4); Red Cell Distribution Width 14.3 % (11.5-14.5); White Blood Count 8.8 K/mm3 (4.5-10.0)
[2024-12-22 05:16] LABS: Alanine Aminotransferase 38 U/L (6-35); Albumin Level 2.8 g/dL (3.5-5.1); Alkaline Phosphatase 58 U/L (38-126); Anion Gap 6 mmol/L (4-12); Aspartate Amino Transferase 59 U/L (14-36); Bilirubin,Total 0.5 mg/dL (0.2-1.3); Blood Urea Nitrogen 17 mg/dL (7-17); CRP < 0.5 mg/dL (<1.0); Calcium 8.3 mg/dL (8.4-10.2); Carbon Dioxide 27 mmol/L (22-30); Chloride 105 mmol/L (98-107); Estimated CRCL calculation 43 ml/min; Estimated Glomerular Filt Rate 38; Glucose 93 mg/dL (65-110); Lipase 29 U/L (23-300); Potassium 3.4 mmol/L (3.4-5.0); Sodium 138 mmol/L (137-145)
[2024-12-22 05:30] LABS: Erythrocyte Sedimentation Rate 18 mm/hr (0-20)
[2024-12-22] MEDS: ASPIRIN 81 MG ENTERIC TABLET PO (09:46)
[2024-12-22] MEDS: oxyBUTYnin CHLORIDE XL 5 MG TAB.ER.24 10 MG PO (09:46)
[2024-12-22] MEDS: PANTOPRAZOLE 40 MG TABLET PO (09:46)
[2024-12-22] MEDS: LORazepam (*CRX) 1 MG TABLET 2 MG PO ×2 (09:46→21:07)
[2024-12-22] MEDS: lamoTRIgine 100 MG TABLET 200 MG PO ×2 (09:46→21:07)
[2024-12-22] MEDS: DULoxetine HCL 60 MG CAPSULE.DR PO ×2 (09:46→21:07)
[2024-12-22] MEDS: SERTRALINE HCL 50 MG TABLET 100 MG PO ×2 (09:46→21:07)
[2024-12-22] MEDS: FERROUS SULFATE 325 MG TABLET DR PO (12:59)
[2024-12-22] MEDS: ASCORBIC ACID 500 MG TABLET 2000 MG PO (12:59)
[2024-12-22] MEDS: VITAMIN B COMPLEX CAPSULE 2 CAP PO (12:59)
[2024-12-22] MEDS: CHOLECALCIFEROL 1,000 UNITS TABLET 10000 UNITS PO (12:59)
--- NOTE | 2024-12-22 17:31 | PM.IMPN ---
Progress Note: A&P Assessment and Plan (1) Weakness: Code(s): R53.1 - Weakness Status: Acute Assessment and Plan: Patient report generalized weakness and tremors to entire body, difficulty holding objects. CXR showed no acute cardiopulmonary disease - no anemia - UA suggestive of UTI, see below, has been symptomatic - hypokalemia noted, likely complication of JERRY superimposed on CKD. Antibiotics for UTI, correct potassium, IV fluids. PT/OT re-evaluation for discharge planning. -Evaluation of tremors/weakness (2) UTI (urinary tract infection): Qualifiers: Hematuria presence: without hematuria Urinary tract infection type: acute cystitis Qualified Code(s): N30.00 - Acute cystitis without hematuria Code(s): N39.0 - Urinary tract infection, site not specified Status: Acute Assessment and Plan: UA: Cloudy, trace ketones, 1+ bilirubin, 1+ leuks, 11-20 WBC, occasional epithelial cells, 4+ bacteria. Contaminant verses infection. - UC pending, growing e coli - previous micro reviewed, no recent positive cultures - started on Ceftriaxone on 12/20, continue (3) Acute kidney injury superimposed on CKD: Code(s): N17.9 - Acute kidney failure, unspecified; N18.9 - Chronic kidney disease, unspecified Status: Acute Assessment and Plan: Creatinine 1.86, BUN 20, GFR 27. Previously 1.38, BUN 16, GFR 38 on 11/09/2024 - IV fluids: 100 mL/hr x2L - suspect injury secondary to UTI, but also has limited mobility, difficulty holding cups, continue fluids (4) Hypokalemia: Code(s): E87.6 - Hypokalemia Status: Acute Assessment and Plan: - K 2.2 - initial repletion with 40 KCl PO and 40 KCl IV, improving - reporting new fine tremor in the last month, worsens with intention on exam. May be exacerbated by hypokalemia. Monitor. - monitor (5) HTN (hypertension): Qualifiers: Hypertension type: essential hypertension Qualified Code(s): I10 - Essential (primary) hypertension Code(s): I10 - Essential (primary) hypertension Status: Chronic Assessment and Plan: - chronic, currently 106/75 - Home meds have been on hold: amlodipine, carvedilol, and hydrochlorothiazide. Resume when appropriate. - monitor (6) Obstructive sleep apnea on CPAP: Code(s): G47.33 - Obstructive sleep apnea (adult) (pediatric); Z99.89 - Dependence on other enabling machines and devices Status: Acute Assessment and Plan: - continue home CPAP (7) Abdominal pain: Qualifiers: Abdominal location: periumbilical Qualified Code(s): R10.33 - Periumbilical pain Code(s): R10.9 - Unspecified abdominal pain Status: Acute Assessment and Plan: Mild generalized abdominal tenderness, RUQ and mid abdomen. Hx cholecystectomy Associated with diarrhea and nausea/vomiting but flu, c-diff, and covid were negative. has an allergy to IV contrast. If worsening would need a noncontrast CT LFT's normal --Follow LFt's, CBC, electrolytes --Lipase negative. Not consistent with pancreatitis on exam --Holding wegovy (8) Tremors of nervous system: Code(s): R25.1 - Tremor, unspecified Status: Acute Assessment and Plan: Patient reports noticing tremors about 3 months ago but didn't feel they were noticeable to anyone but her. In the last month they have gotten more severe and she now has difficulty holding cups. --Ddx includes medication related or toxicity, metabolic, other --Head CT --Neurology consult --Check lamotrigine level --Is on scheduled lorazepam 2mg q12. Would consider weaning slowly --Also taking trazodone 200mg, sertraline 100mg q12, duloxetine 60mg q12 --May need to discuss with outpatient psychiatrist, Dr. Poole in [place] [phone]. Patient reports no recent changes to medications, but creatinine clearance has been trending down Plan Diet: Heart healthy GI Prophylaxis: Not currently indicated DVT Prophylaxis: SCDs IV fluids: 100 mL/hr x2L Lines/Tubes: Peripheral IV Code Status: Full code Time Spent With Patient Time: 58 minutes Subjective Date/time seen: 12/22/24 17:31 Interval history: Abdominal tenderness improved No nausea today Reports generalized tremors for the last month and more difficulty holding cups and other objects Creatinine improving with fluids Increasing oxygen requirements, 92% on 5LO2 Review of Systems Review of Systems: All systems reviewed & are unremarkable except as noted in HPI and below Exam Narrative: General - Awake and alert. No acute distress Eyes - PERRLA, EOM intact ENT - No thrush, No erythema Neck - No noticeable or palpable swelling Lymph Nodes - No lymphadenopathy Cardiovascular - RRR no m/r/g, no JVD Lungs: Clear to auscultation, No wheezing, use of accessory muscles, no crackles Skin - Skin warm and dry, no wounds or rashes Abdomen - Normal bowel sounds, abdomen soft, generalized tenderness Extremities - No edema, cyanosis or clubbing Musculoskeletal - 3/5 strength, decreased range of motion to shoulders, no swollen or erythematous joints. Neurological ? Alert and oriented x 3, CN 2-12 grossly intact. tremors to hands, also noticeable in arms and head Psych: Normal mood and affect Objective Data Vital Signs Vital Signs: Vital Signs - 24 hr 12/21/24 20:00 12/21/24 20:00 12/21/24 21:25 Temperature 99.6 F Pulse Rate 86 83 Respiratory Rate 12 Blood Pressure 134/110 H Pulse Oximetry 97 Oxygen Delivery Room Air 12/21/24 22:05 12/22/24 00:00 12/22/24 04:00 Temperature Pulse Rate 81 84 82 Respiratory Rate 30 H Blood Pressure Pulse Oximetry 93 Oxygen Delivery BiPAP 12/22/24 04:29 12/22/24 08:00 12/22/24 08:00 Temperature 97.6 F Pulse Rate 87 93 Respiratory Rate 16 Blood Pressure 119/45 L Pulse Oximetry 100 Oxygen Delivery Room Air 12/22/24 12:00 12/22/24 14:00 12/22/24 16:00 Temperature 97.9 F Pulse Rate 81 81 79 Respiratory Rate 18 Blood Pressure 110/53 L Pulse Oximetry 100 Oxygen Delivery Intake/Output Intake/Output: Intake & Output 12/19/24 12/20/24 12/21/24 12/22/24 23:59 23:59 23:59 23:59 Intake Total 690 3770 1060 Output Total 100 200 100 Balance 590 3570 960 Meds/Results Medications: Active Medications Generic Name Dose Route Start Last Admin Trade Name Freq PRN Reason Stop Dose Admin Acetaminophen 650 mg 12/20/24 10:56 Acetaminophen 325 Mg Tablet PO Q4H PRN Mild Pain (1-3) or Fever Hydrocodone Bitart/Acetaminophen 1 tab 12/20/24 10:56 Hydrocodone/Acetaminophen (*Crx) 5-325 Mg Tablet PO Q4H PRN Pain Rated 4-6 Albuterol 1 - 2 puff 12/20/24 18:38 Albuterol Sulfate (*Sp) Aerosol 1 Puff INHALATION Q4-6H PRN shortness of breath or wheezing Ascorbic Acid 2,000 mg 12/21/24 12:00 12/22/24 12:59 Ascorbic Acid 500 Mg Tablet PO 2,000 mg 1200 CARLIN Administration Aspirin 81 mg 12/21/24 09:00 12/22/24 09:46 Aspirin 81 Mg Enteric Tablet PO 81 mg DAILY CARLIN Administration Bupropion HCl 150 mg 12/20/24 21:00 12/21/24 21:29 Bupropion Hcl Xl (24 Hr) 150 Mg Tabcr PO 150 mg HS CARLIN Administration Duloxetine HCl 60 mg 12/20/24 21:00 12/22/24 09:46 Duloxetine Hcl 60 Mg Capsule.Dr PO 60 mg Q12H CARLIN Administration Ferrous Sulfate 325 mg 12/21/24 12:00 12/22/24 12:59 Ferrous Sulfate [address] PO 325 mg 1200 CARLIN Administration Ceftriaxone Sodium 1 gm in 50 mls @ 100 mls/hr 12/20/24 20:00 12/21/24 22:00 Rocephin 1 Gm/Ns 50 Ml IVPB Infused Q24H CARLIN Infusion Lamotrigine 200 mg 12/20/24 21:00 12/22/24 09:46 Lamotrigine 100 Mg Tablet PO 200 mg Q12H CARLIN Administration Loperamide HCl 2 mg 12/20/24 18:38 12/20/24 22:19 Loperamide Hcl 2 Mg Capsule PO 2 mg QID PRN Administration diarrhea Lorazepam 2 mg 12/20/24 21:00 12/22/24 09:46 Lorazepam (*Crx) 1 Mg Tablet PO 2 mg Q12H CARLIN Administration Miscellaneous Information 1 each 12/21/24 00:01 Tyrvaya Nasal [place] Is Nonform; Can Pt Use From Home? XX 01/20/25 00:00 CLARIFY CARLIN Non-Formulary Medication 0.03 mg 12/20/24 18:45 Varenicline Tartrate [Tyrvaya] NASAL 01/19/25 18:44 Q12H CARLIN Ondansetron HCl 4 mg 12/20/24 10:56 12/21/24 09:28 Ondansetron Inj 4 Mg/2 Ml Vial IV PUSH 4 mg Q4H PRN Administration Nausea Oxybutynin Chloride 10 mg 12/21/24 09:00 12/22/24 09:46 Oxybutynin Chloride Xl 5 Mg Tab.Er.24 PO 10 mg DAILY CARLIN Administration Pantoprazole Sodium 40 mg 12/21/24 09:00 12/22/24 09:46 Pantoprazole 40 Mg Tablet PO 40 mg QAM CARLIN Administration Sertraline HCl 100 mg 12/20/24 21:00 12/22/24 09:46 Sertraline Hcl 50 Mg Tablet PO 100 mg Q12H CARLIN Administration Trazodone HCl 200 mg 12/20/24 18:38 12/21/24 21:29 Trazodone Hcl 50 Mg Tablet PO 200 mg QHS PRN Administration Insomnia Vitamin B Complex 2 cap 12/21/24 12:00 12/22/24 12:59 Vitamin B Complex Capsule PO 2 cap 1200 CARLIN Administration Vitamin D 10,000 units 12/21/24 12:00 12/22/24 12:59 Cholecalciferol 1,000 Units Tablet PO 10,000 units 1200 CARLIN Administration Radiology Results: ITS Impressions Chest X-Ray 12/20/24 09:02 IMPRESSION: 1: NO ACUTE CARDIOPULMONARY DISEASE. Labs Labs: Laboratory Results - last 24 hr 12/22/24 04:40 WBC 8.8 RBC 3.85 L Hgb 12.3 Hct 38.1 MCV 99.0 MCH 31.9 MCHC 32.3 RDW 14.3 Plt Count 243 MPV 8.9 Immature Gran % (Auto) 1.4 H Neut % (Auto) 67.9 Lymph % (Auto) 18.4 [place] % (Auto) 10.4 H Eos % (Auto) 1.3 Baso % (Auto) 0.6 Lymph # (Auto) 1.62 [place] # (Auto) 0.9 H Eos # (Auto) 0.1 Baso # (Auto) 0.1 Abs Immat Gran (auto) 0.12 H Absolute Neuts (auto) 6.0 Absolute Nucleated RBC 0.000 Nucleated RBC % 0.0 ESR 18 Sodium 138 Potassium 3.4 Chloride 105 Carbon Dioxide 27 Anion Gap 6 BUN 17 Creatinine 1.37 H Estim Creat Clear Calc 43 Estimated GFR 38 L Glucose 93 Calcium 8.3 L Total Bilirubin 0.5 AST 59 H ALT 38 H Alkaline Phosphatase 58 C-Reactive Protein < 0.5 Total Protein 5.0 L Albumin 2.8 L Lipase 29 Quality VTE Prophylaxis VTE prophylaxis: mechanical ordered Hospitalist MIPS Advance Care Plan I have confirmed that the patient's Advanced Care Plan is present, code status is documented, or surrogate decision maker is listed in patient medical record.: Yes Medication Reconciliation I have utilized all available resources to obtain, update and review the patients current medications (includes all prescriptions, OTC, herbals, cannabis, and nutritional supplements).: Yes
[2024-12-22 20:15] LABS: Basophils Percent Auto 0.3 % (0.2-1.2); Eosinophils Absolute Auto 0.2 K/mm3 (0-0.3); Eosinophils Percent Auto 1.4 % (0-4.4); Hematocrit 40.7 % (37.0-47.0); Hemoglobin 13.1 g/dL (12.0-15.0); Immature Granulocyte Absolute 0.11 K/mm3 (0.00-0.031); Lymphocytes Absolute Auto 1.49 K/mm3 (0.9-3.2); Mean Corpuscular HGB Conc 32.2 g/dl (32-36); Mean Corpuscular Volume 99.3 fl (80-100); Mean Platelet Volume 8.9 fl (7.4-10.4); Monocytes Absolute Auto 0.8 K/mm3 (0.1-0.6); Monocytes Percent Auto 7.2 % (2.6-8.5); Neutrophils Absolute Auto 8.9 K/mm3 (1.3-6.7); Neutrophils Percent Auto 77.1 % (45.5-73.1); Platelet Count Result 253 k/mm3 (150-375); Red Cell Distribution Width 14.2 % (11.5-14.5); White Blood Count 11.5 K/mm3 (4.5-10.0)
[2024-12-22 20:29] LABS: Anion Gap 8 mmol/L (4-12); Blood Urea Nitrogen 15 mg/dL (7-17); Calcium 8.9 mg/dL (8.4-10.2); Carbon Dioxide 26 mmol/L (22-30); Chloride 105 mmol/L (98-107); Estimated CRCL calculation 48 ml/min; Estimated Glomerular Filt Rate 44; Glucose 103 mg/dL (65-110); Potassium 3.2 mmol/L (3.4-5.0); Sodium 139 mmol/L (137-145)
[2024-12-22] MEDS: buPROPion HCL XL (24 HR) 150 MG TABCR PO (21:07)
[2024-12-22] MEDS: traZODone HCL 50 MG TABLET 200 MG PO (21:07)
[2024-12-23] VITALS (11 sets, daily range): BP systolic 111–125; BP diastolic 48–89; PULSE 80–95; RESP 14–20; TEMP 36.6–37.5; O2SAT 95–100
[2024-12-23 05:14] LABS: Basophils Percent Auto 0.2 % (0.2-1.2); Eosinophils Absolute Auto 0.1 K/mm3 (0-0.3); Eosinophils Percent Auto 0.7 % (0-4.4); Hematocrit 37.9 % (37.0-47.0); Hemoglobin 12.3 g/dL (12.0-15.0); Immature Granulocyte Absolute 0.12 K/mm3 (0.00-0.031); Immature Granulocyte Percent A 0.7 % (0-0.5); Lymphocytes Absolute Auto 1.38 K/mm3 (0.9-3.2); Lymphocytes Percent Auto 8.4 % (18.3-44.2); Mean Corpuscular HGB Conc 32.5 g/dl (32-36); Mean Corpuscular Volume 98.7 fl (80-100); Mean Platelet Volume 9.5 fl (7.4-10.4); Monocytes Absolute Auto 1.2 K/mm3 (0.1-0.6); Monocytes Percent Auto 7.6 % (2.6-8.5); Neutrophils Absolute Auto 13.5 K/mm3 (1.3-6.7); Neutrophils Percent Auto 82.4 % (45.5-73.1); Platelet Count Result 246 k/mm3 (150-375); Red Blood Count 3.84 M/mm3 (4.2-5.4); Red Cell Distribution Width 14.2 % (11.5-14.5); White Blood Count 16.4 K/mm3 (4.5-10.0)
[2024-12-23 08:02] LABS: Albumin Level 2.8 g/dL (3.5-5.1); Anion Gap 6 mmol/L (4-12); Blood Urea Nitrogen 13 mg/dL (7-17); Calcium 8.6 mg/dL (8.4-10.2); Carbon Dioxide 28 mmol/L (22-30); Chloride 103 mmol/L (98-107); Estimated CRCL calculation 51 ml/min; Estimated Glomerular Filt Rate 48; Glucose 87 mg/dL (65-110); Phosphorus 3.7 mg/dL (2.5-4.5); Sodium 137 mmol/L (137-145)
--- NOTE | 2024-12-23 08:22 | P.PNIM_ITS ---
Progress Note: A&P Assessment and Plan (1) Weakness: Code(s): R53.1 - Weakness Status: Acute Assessment and Plan: * Likely due to UTI superimposed on her already debilitated state for which she was in rehab at [facility] (2) UTI (urinary tract infection): Qualifiers: Urinary tract infection type: acute cystitis Hematuria presence: without hematuria Qualified Code(s): N30.00 - Acute cystitis without hematuria Code(s): N39.0 - Urinary tract infection, site not specified Status: Acute Assessment and Plan: * E coli sensitive to multiple drugs * Continue ceftriaxone, started December 20 * / WBC increased to 16.4 (3) Acute kidney injury superimposed on CKD: Code(s): N17.9 - Acute kidney failure, unspecified; N18.9 - Chronic kidney disease, unspecified Status: Acute Assessment and Plan: * Creatinine 1.86 at admission * 12/23 creatinine 1.13 (4) Hypokalemia: Code(s): E87.6 - Hypokalemia Status: Acute Assessment and Plan: * K 2.2 admission * Cause unclear, malnutrition likely playing a role * initial repletion with 40 KCl PO and 40 KCl IV * 12/23 3.0, potassium chloride 40 mEq p.o. x2 (5) HTN (hypertension): Qualifiers: Hypertension type: essential hypertension Qualified Code(s): I10 - Essential (primary) hypertension Code(s): I10 - Essential (primary) hypertension Status: Chronic Assessment and Plan: * / reviewed and controlled (6) Obstructive sleep apnea on CPAP: Code(s): G47.33 - Obstructive sleep apnea (adult) (pediatric); Z99.89 - Dependence on other enabling machines and devices Status: Acute Assessment and Plan: * Wears oxygen 5 L at night and p.r.n. during the day and has done so for the past few years * /3 oxygen saturation 98% on 2 LPM by AK * /3 CT chest done and results pending (7) Abdominal pain: Qualifiers: Abdominal location: periumbilical Qualified Code(s): R10.33 - Periumbilical pain Code(s): R10.9 - Unspecified abdominal pain Status: Acute Assessment and Plan: * 5/3 resolved (8) Tremors of nervous system: Code(s): R25.1 - Tremor, unspecified Status: Acute Assessment and Plan: * Likely due to lamotrigine plus multiple serotonin urgent drugs * Monitor, discussed with patient that this is something to discuss with her outpatient psychiatrist (9) Protein calorie malnutrition: Code(s): E46 - Unspecified protein-calorie malnutrition Status: Acute Assessment and Plan: * 5/3 albumin 2.8 * Encourage healthy diet Subjective Date/time seen: 12/23/24 08:22 Interval history: Had chest pain. No shortness of breath while wearing oxygen and at rest. Denied GI or issues. Denied abdominal pain. Denied nausea. Tolerating diet. Was at [facility] for rehab with goal of going home prior to contracted urinary tract infection and coming to [facility]. Goal is to return home possible. Tremor often on for over a year. A little more persistent over the last 3 months or so. Not interfering with daily activities. She will discuss this with her psychiatrist at next visit. Review of Systems Review of Systems: All systems reviewed & are unremarkable except as noted in HPI and below Exam Narrative: HEENT: PERRL, sclerae nonicteric, pharyngeal mucosa pink and intact NECK: No JVD, adenopathy CHEST: Clear to auscultation. Normal effort. HEART: NL S1/S2, regular, no murmur ABDOMEN: BS+, soft, nontender, no mass, no bruits EXTREMITIES: No cyanosis, edema, or clubbing NEUROLOGIC: CN intact and symmetric to inspection. Mild fine tremor of outstretched hands is partially suppressed by intentional movement. MUSCULOSKELETAL: Tone and strength symmetric. PSYCH: Alert. Oriented to person, place, and time. Objective Data Vital Signs Vital Signs: Vital Signs - 24 hr 12/22/24 12:00 12/22/24 14:00 12/22/24 16:00 Temperature 97.9 F Pulse Rate 81 81 79 Respiratory Rate 18 Blood Pressure 110/53 L Pulse Oximetry 100 Oxygen Delivery Oxygen Flow Rate 12/22/24 19:25 12/22/24 20:00 12/22/24 20:00 Temperature 98.5 F Pulse Rate 85 85 85 Respiratory Rate 18 18 Blood Pressure 132/52 L Pulse Oximetry 96 96 Oxygen Delivery Nasal Cannula Oxygen Flow Rate 5 12/22/24 22:45 12/22/24 22:45 12/23/24 00:00 Temperature Pulse Rate 92 89 Respiratory Rate 22 H Blood Pressure Pulse Oximetry 97 97 Oxygen Delivery BiPAP Nasal Cannula Oxygen Flow Rate 2 12/23/24 04:00 12/23/24 05:25 Temperature 98.7 F Pulse Rate 95 94 Respiratory Rate 16 Blood Pressure 125/49 L Pulse Oximetry 98 Oxygen Delivery Oxygen Flow Rate Intake/Output Intake/Output: Intake & Output 12/20/24 12/21/24 12/22/24 12/23/24 23:59 23:59 23:59 23:59 Intake Total 690 3770 1350 250 Output Total 100 200 100 200 Balance 590 3570 1250 50 Meds/Results Medications: Active Medications Generic Name Dose Route Start Last Admin Trade Name Freq PRN Reason Stop Dose Admin Acetaminophen 650 mg 12/20/24 10:56 Acetaminophen 325 Mg Tablet PO Q4H PRN Mild Pain (1-3) or Fever Hydrocodone Bitart/Acetaminophen 1 tab 12/20/24 10:56 Hydrocodone/Acetaminophen (*Crx) 5-325 Mg Tablet PO Q4H PRN Pain Rated 4-6 Albuterol 1 - 2 puff 12/20/24 18:38 Albuterol Sulfate (*Sp) Aerosol 1 Puff INHALATION Q4-6H PRN shortness of breath or wheezing Ascorbic Acid 2,000 mg 12/21/24 12:00 12/22/24 12:59 Ascorbic Acid 500 Mg Tablet PO 2,000 mg 1200 CARLIN Administration Aspirin 81 mg 12/21/24 09:00 12/22/24 09:46 Aspirin 81 Mg Enteric Tablet PO 81 mg DAILY CARLIN Administration Bupropion HCl 150 mg 12/20/24 21:00 12/22/24 21:07 Bupropion Hcl Xl (24 Hr) 150 Mg Tabcr PO 150 mg HS CARLIN Administration Duloxetine HCl 60 mg 12/20/24 21:00 12/22/24 21:07 Duloxetine Hcl 60 Mg Capsule.Dr PO 60 mg Q12H CARLIN Administration Ferrous Sulfate 325 mg 12/21/24 12:00 12/22/24 12:59 Ferrous Sulfate [address] PO 325 mg 1200 CARLIN Administration Ceftriaxone Sodium 1 gm in 50 mls @ 100 mls/hr 12/20/24 20:00 12/22/24 21:36 Rocephin 1 Gm/Ns 50 Ml IVPB Infused Q24H CARLIN Infusion Lamotrigine 200 mg 12/20/24 21:00 12/22/24 21:07 Lamotrigine 100 Mg Tablet PO 200 mg Q12H CARLIN Administration Loperamide HCl 2 mg 12/20/24 18:38 12/20/24 22:19 Loperamide Hcl 2 Mg Capsule PO 2 mg QID PRN Administration diarrhea Lorazepam 2 mg 12/20/24 21:00 12/22/24 21:07 Lorazepam (*Crx) 1 Mg Tablet PO 2 mg Q12H CARLIN Administration Ondansetron HCl 4 mg 12/20/24 10:56 12/21/24 09:28 Ondansetron Inj 4 Mg/2 Ml Vial IV PUSH 4 mg Q4H PRN Administration Nausea Oxybutynin Chloride 10 mg 12/21/24 09:00 12/22/24 09:46 Oxybutynin Chloride Xl 5 Mg Tab.Er.24 PO 10 mg DAILY CARLIN Administration Pantoprazole Sodium 40 mg 12/21/24 09:00 12/22/24 09:46 Pantoprazole 40 Mg Tablet PO 40 mg QAM CARLIN Administration Potassium Chloride 40 meq 12/23/24 08:21 Potassium Chloride 20 Meq Packet (For Liquid) PO 12/23/24 08:22 ONCE ONE Potassium Chloride 40 meq 12/23/24 16:21 Potassium Chloride 20 Meq Packet (For Liquid) PO 12/23/24 16:22 ONCE ONE Sertraline HCl 100 mg 12/20/24 21:00 12/22/24 21:07 Sertraline Hcl 50 Mg Tablet PO 100 mg Q12H CARLIN Administration Trazodone HCl 200 mg 12/20/24 18:38 12/22/24 21:07 Trazodone Hcl 50 Mg Tablet PO 200 mg QHS PRN Administration Insomnia Vitamin B Complex 2 cap 12/21/24 12:00 12/22/24 12:59 Vitamin B Complex Capsule PO 2 cap 1200 CARLIN Administration Vitamin D 10,000 units 12/21/24 12:00 12/22/24 12:59 Cholecalciferol 1,000 Units Tablet PO 10,000 units 1200 CARLIN Administration Radiology Results: ITS Impressions Chest X-Ray 12/20/24 09:02 IMPRESSION: 1: NO ACUTE CARDIOPULMONARY DISEASE. Head CT 12/23/24 06:41 IMPRESSION: 1. No acute intracranial process. 2. Right occipital craniotomy with underlying small focus of encephalomalacia which could be related to prior surgery or infarction. Labs Labs: Laboratory Results - last 24 hr 12/22/24 12/23/24 20:09 04:28 WBC 11.5 H 16.4 H RBC 4.10 L 3.84 L Hgb 13.1 12.3 Hct 40.7 37.9 MCV 99.3 98.7 MCH 32.0 32.0 MCHC 32.2 32.5 RDW 14.2 14.2 Plt Count 253 246 MPV 8.9 9.5 Immature Gran % (Auto) 1.0 H 0.7 H Neut % (Auto) 77.1 H 82.4 H Lymph % (Auto) 13.0 L 8.4 L [place] % (Auto) 7.2 7.6 Eos % (Auto) 1.4 0.7 Baso % (Auto) 0.3 0.2 Lymph # (Auto) 1.49 1.38 [place] # (Auto) 0.8 H 1.2 H Eos # (Auto) 0.2 0.1 Baso # (Auto) 0.0 0.0 Abs Immat Gran (auto) 0.11 H 0.12 H Absolute Neuts (auto) 8.9 H 13.5 H Absolute Nucleated RBC 0.000 0.000 Nucleated RBC % 0.0 0.0 Sodium 139 137 Potassium 3.2 L 3.0 L Chloride 105 103 Carbon Dioxide 26 28 Anion Gap 8 6 BUN 15 13 Creatinine 1.21 H 1.13 H Estim Creat Clear Calc 48 51 Estimated GFR 44 L 48 L Glucose 103 87 Calcium 8.9 8.6 Phosphorus 3.7 Albumin 2.8 L
[2024-12-23] MEDS: ASPIRIN 81 MG ENTERIC TABLET PO (09:36)
[2024-12-23] MEDS: PANTOPRAZOLE 40 MG TABLET PO (09:36)
[2024-12-23] MEDS: oxyBUTYnin CHLORIDE XL 5 MG TAB.ER.24 10 MG PO (09:36)
[2024-12-23] MEDS: LORazepam (*CRX) 1 MG TABLET 2 MG PO ×2 (09:36→20:48)
[2024-12-23] MEDS: lamoTRIgine 100 MG TABLET 200 MG PO ×2 (09:37→20:48)
[2024-12-23] MEDS: SERTRALINE HCL 50 MG TABLET 100 MG PO ×2 (09:37→20:48)
[2024-12-23] MEDS: DULoxetine HCL 60 MG CAPSULE.DR PO ×2 (09:37→20:48)
[2024-12-23] MEDS: POTASSIUM CHLORIDE 20 MEQ ER TABLET 40 MEQ PO ×2 (10:39→17:05)
[2024-12-23] MEDS: CHOLECALCIFEROL 1,000 UNITS TABLET 10000 UNITS PO (13:01)
[2024-12-23] MEDS: ASCORBIC ACID 500 MG TABLET 2000 MG PO (13:01)
[2024-12-23] MEDS: VITAMIN B COMPLEX CAPSULE 2 CAP PO (13:01)
[2024-12-23] MEDS: FERROUS SULFATE 325 MG TABLET DR PO (13:02)
--- NOTE | 2024-12-23 14:20 | P.CONNEU_ITS ---
Assessment and Plan Assessment and plan (1) Tremors of nervous system: Code(s): R25.1 - Tremor, unspecified Status: Acute (2) Generalized weakness: Code(s): R53.1 - Weakness Status: Acute (3) Morbid obesity: Code(s): E66.01 - Morbid (severe) obesity due to excess calories Status: Acute (4) Depression: Code(s): F32.9 - Major depressive disorder, single episode, unspecified Status: Acute Plan 1. Generalized weakness with difficulties in day-to-day chores and inability to get up. Recent decline in the strength with inability to push the chair. 2. Multiple medications as outlined no further room to add any medication she is taking trazodone 200mg at night, along with Wellbutrin lamotrigine lorazepam sertraline, benefit from the physical therapy and occupation therapy to improve her daily function 3. At present she has UTI which is being treated and electrolytes are being corrected, no more medication needed to be added though she will benefit from the readjustment of the present medication but I will let the general supportive care continue as such for the time. I will read discussed with her tomorrow thank you Consult date: 12/23/24 HPI: Leydi Su is a 69 year old female Admitted to the hospital through the emergency room with the complaints of generalized weakness and inability to get up. Patient has been receiving rehabilitation and yesterday she was noted to have loss of strength with inability to push the wheelchair what she could do before, at the time of visit to the emergency room she was taking multiple medications which include duloxetine 60mg twice a day, trazodone 200mg at night, aspirin 81mg daily, Wellbutrin 150mg at night, carvedilol 12.5mg twice a day, lamotrigine 200mg twice a day, lorazepam 2mg 3 times a day, oxybutynin 10mg daily, sertraline 100mg twice a day, and she is known to be allergic to acyclovir, contrast media, and omeprazole, she has ongoing history of chronic renal disease, nocturnal oxygen desaturation, lymphedema tobacco abuse, hypertension brain tumor and bipolar disorder, in addition to anxiety with depression. She has history of smoking 2 packs per day 1, years smoked 40, and smoking pack years of 40 no at present she is a former smoker. On initial exam in the emergency room she was chronically ill-appearing with morbid obesity but grossly nonfocal neurological examination except chronic lymphedema. Her vital signs were with respiration rate of 22 though she was afebrile, her CBC was normal, BMP with potassium of only 2.2 and sodium 134 UA was negative, and she was negative for routine viral infections such as influenza a influenza B RSV and SARs COVID. Chest x-ray was negative EKG with the without any atrial fibrillation. She has had benign pineal tumor removed in 1995 Review of Systems 2 Review of Systems: All systems reviewed & are unremarkable except as noted in HPI and below PMFSH Past Medical History Medical History CKD (chronic kidney disease) Nocturnal oxygen desaturation Body mass index (BMI) of 40.1-44.9 in adult Deafness in left ear JERED (iron deficiency anemia) Lymphedema Dysuria Fracture of left upper extremity Distal radius fracture, left July 2020 Shortness of Breath Decreased diffusion capacity History of tobacco abuse Exercise hypoxemia Brain tumor HTN (hypertension) Obstructive sleep apnea on CPAP Bipolar 1 disorder SIMEON (obstructive sleep apnea) With CPAP use GERD (gastroesophageal reflux disease) Depression Anxiety Surgical History Surgical History History of bladder suspension procedure March 2017 Hx of tonsillectomy History of brain surgery 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 She has 3 children. She is disabled. She quit smoking 5 years ago. The patient denies any marijuana alcohol or illicit drugs. 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 Primary care physician: Dr. Yannick Umanzor Code status: Full code Smoking packs per day: 1 Smoking cigarettes per day: 20.0 Years smoked: 40 Smoking pack-years: 40.00 Smoking status: Former smoker Tobacco type: cigarettes Second hand tobacco smoke exposure: No Smoking end date: 08/23/14 Alcohol intake: never Substance use: never Substance use type: does not use Do You Feel Safe in your Home?: Yes Lack of Transportation: No Lack of Food: Never True Current Housing: I Have Housing Concerned About Future Housing: No Difficulty Paying Gas/Electric Bills: No Difficulty Paying for Meds: No Currently Unemployed: No Education: Associate Degree Difficulty w/ Childcare or Family Care: No Living arrangements: with family Additional living arrangements comments: [facility] Occupation/Education: retired Additional occupation/education comments: 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 Gender identity (if verbalized by the patient): Female Spiritual care concerns: No Meds Home Medications and Allergies Home Medications ?Medication ?Instructions ?Recorded ?Confirmed ?Type duloxetine 60 mg capsule,delayed 60 mg PO Q12H 01/21/21 12/20/24 History release (Cymbalta) cholecalciferol (vitamin D3) 250 250 mcg PO 1200 01/02/22 12/20/24 History mcg (10,000 unit) capsule trazodone 100 mg tablet 200 mg PO QHS PRN Insomnia 01/02/22 12/20/24 History Overnight Ox #1 ea 05/13/22 12/21/24 Rx albuterol sulfate 90 mcg/actuation 1 - 2 puff inhalation Q4-6H PRN 02/08/23 12/20/24 Rx aerosol inhaler shortness of breath or wheezing #8.5 grams ascorbic acid (vitamin C) 1,000 mg 2 g PO 1200 09/08/23 12/20/24 History chewable tablet aspirin 81 mg tablet,delayed 81 mg PO DAILY 09/08/23 12/20/24 History release bupropion HCl 150 mg 24 hr tablet, 150 mg PO HS 09/08/23 12/20/24 History extended release carvedilol 12.5 mg tablet 12.5 mg PO Q12H 09/08/23 12/20/24 History ferrous sulfate 325 mg (65 mg 325 mg PO 1200 09/08/23 12/20/24 History iron) tablet lamotrigine 200 mg tablet 200 mg PO Q12H 09/08/23 12/20/24 History lorazepam 2 mg tablet 2 mg PO Q12H 09/08/23 12/20/24 History oxybutynin chloride 10 mg 10 mg PO DAILY 09/08/23 12/20/24 History tablet,extended release 24 hr sertraline 100 mg tablet 100 mg PO Q12H 09/08/23 12/20/24 History vitamin B complex 2 tablet PO 1200 09/08/23 12/20/24 History amlodipine 5 mg tablet 5 mg PO HS #90 tabs 01/05/24 12/20/24 Rx varenicline tartrate 0.03 mg/spray 0.03 mg intranasal Q12H 03/14/24 12/20/24 History metered nasal spray (Tyrvaya) hydrochlorothiazide 12.5 mg tablet 12.5 mg PO QAM #90 tabs 06/15/24 12/20/24 Rx pantoprazole 40 mg tablet,delayed See Rx Instructions .Route 08/24/24 12/20/24 Rx release .COMPLEX #90 tabs semaglutide (weight loss) 1 mg/0.5 1 mg (0.5 mL) subcut Q7D #2 mL 11/08/24 12/20/24 Rx mL subcutaneous pen injector (Megany) acetaminophen 325 mg capsule 650 mg PO Q4H PRN pain (scale 12/20/24 12/20/24 History score 1-3) loperamide 2 mg tablet 2 mg PO QID PRN diarrhea 12/20/24 12/20/24 History (Anti-Diarrheal (loperamide)) Allergies Allergy/AdvReac Type Severity Reaction Status Date / Time acyclovir (From Zovirax) Allergy Severe Hives Verified 12/20/24 18:01 Iodinated Contrast Media Allergy Intermediate Rash Verified 12/20/24 18:01 omeprazole (From Prilosec) AdvReac Intermediate hyperventil Verified 12/20/24 18:01 ate Vital Signs Vital Signs - 24 hr 12/22/24 16:00 12/22/24 19:25 12/22/24 20:00 Temperature 36.9 C Pulse Rate 79 85 85 Respiratory Rate 18 18 Blood Pressure 132/52 L Pulse Oximetry 96 96 Oxygen Delivery Nasal Cannula Oxygen Flow Rate 5 12/22/24 20:00 12/22/24 22:45 12/22/24 22:45 Temperature Pulse Rate 85 92 Respiratory Rate 22 H Blood Pressure Pulse Oximetry 97 97 Oxygen Delivery BiPAP Nasal Cannula Oxygen Flow Rate 2 12/23/24 00:00 12/23/24 04:00 12/23/24 05:25 Temperature 37.1 C Pulse Rate 89 95 94 Respiratory Rate 16 Blood Pressure 125/49 L Pulse Oximetry 98 Oxygen Delivery Oxygen Flow Rate 12/23/24 08:00 12/23/24 08:00 Temperature Pulse Rate 87 Respiratory Rate Blood Pressure Pulse Oximetry 98 Oxygen Delivery Nasal Cannula Oxygen Flow Rate 5 Exam 2 Narrative: Exam revealed her to be awake alert cooperative in no obvious acute distress, she was able to follow the verbal commands appropriately as she was able to carry out a conversation with no dysphagia no dysarthria and no dysphonia, head was normocephalic with no bruit, ear nose throat examination was normal, neck was supple with no cervical bruit no thyromegaly no lymphadenopathy, heart is regular with no murmur, lungs are with decreased breath sounds but no rhonchi or crepitations kind abdomen was soft flabby with normal bowel sounds neurological examination revealed her to be awake alert, 2 4 with verbal commands appropriately speech was not dysphasic not dysarthric not dysphonic, pupils are round regular feels the vision is full extraocular movements full with no nystagmus facial sensation was intact face was symmetrical tongue was midline uvula midline motor examination revealed her to have generally decreased strength but again symmetric no evidence of any carotid bruit at [place] she had spasticity reflexes were symmetrical plantars were down she had difficulties in performing heel to knee to george she was performing [id number] for Results Labs 12/23/24 04:28 12/23/24 04:28 Labs: Short CBC 12/22/24 12/23/24 Range/Units 20:09 04:28 WBC 11.5 H 16.4 H (4.5-10.0) K/mm3 Hgb 13.1 12.3 (12.0-15.0) g/dL Hct 40.7 37.9 (37.0-47.0) % Plt Count 253 246 (150-375) k/mm3 BMP 12/22/24 12/23/24 20:09 04:28 Sodium 139 137 Potassium 3.2 L 3.0 L Chloride 105 103 Carbon Dioxide 26 28 BUN 15 13 Creatinine 1.21 H 1.13 H Glucose 103 87 Calcium 8.9 8.6 Liver Function 12/23/24 Range/Units 04:28 Albumin 2.8 L (3.5-5.1) g/dL
--- NOTE | 2024-12-23 18:37 | PC.NURSE ---
[employer] has reviewed and agrees with assessments/charting done by Medina Brunson LPN
[2024-12-23] MEDS: traZODone HCL 50 MG TABLET 200 MG PO (20:47)
[2024-12-23] MEDS: buPROPion HCL XL (24 HR) 150 MG TABCR PO (20:48)
[2024-12-24] VITALS (12 sets, daily range): BP systolic 107–171; BP diastolic 52–88; PULSE 64–88; RESP 16–20; TEMP 36.3–36.8; O2SAT 95–100
[2024-12-24 05:15] LABS: Basophils Absolute Auto 0.1 K/mm3 (0.0-0.1); Basophils Percent Auto 0.7 % (0.2-1.2); Eosinophils Absolute Auto 0.2 K/mm3 (0-0.3); Eosinophils Percent Auto 2.3 % (0-4.4); Hematocrit 36.8 % (37.0-47.0); Hemoglobin 11.6 g/dL (12.0-15.0); Immature Granulocyte Absolute 0.11 K/mm3 (0.00-0.031); Immature Granulocyte Percent A 1.3 % (0-0.5); Lymphocytes Absolute Auto 1.27 K/mm3 (0.9-3.2); Lymphocytes Percent Auto 15.2 % (18.3-44.2); Mean Corpuscular HGB Conc 31.5 g/dl (32-36); Mean Corpuscular Volume 101.4 fl (80-100); Mean Platelet Volume 9.5 fl (7.4-10.4); Monocytes Absolute Auto 0.9 K/mm3 (0.1-0.6); Monocytes Percent Auto 10.3 % (2.6-8.5); Neutrophils Absolute Auto 5.9 K/mm3 (1.3-6.7); Neutrophils Percent Auto 70.2 % (45.5-73.1); Platelet Count Result 237 k/mm3 (150-375); Red Blood Count 3.63 M/mm3 (4.2-5.4); Red Cell Distribution Width 14.4 % (11.5-14.5); White Blood Count 8.4 K/mm3 (4.5-10.0)
[2024-12-24 05:40] LABS: Albumin Level 2.6 g/dL (3.5-5.1); Anion Gap 6 mmol/L (4-12); Blood Urea Nitrogen 11 mg/dL (7-17); Calcium 8.7 mg/dL (8.4-10.2); Carbon Dioxide 26 mmol/L (22-30); Chloride 106 mmol/L (98-107); Estimated CRCL calculation 52 ml/min; Estimated Glomerular Filt Rate 49; Glucose 80 mg/dL (65-110); Magnesium 1.8 mg/dL (1.6-2.3); Phosphorus 3.9 mg/dL (2.5-4.5); Potassium 3.8 mmol/L (3.4-5.0); Sodium 138 mmol/L (137-145)
[2024-12-24] MEDS: LORazepam (*CRX) 1 MG TABLET 2 MG PO ×2 (09:38→20:42)
[2024-12-24] MEDS: lamoTRIgine 100 MG TABLET 200 MG PO ×2 (09:38→20:42)
[2024-12-24] MEDS: DULoxetine HCL 60 MG CAPSULE.DR PO ×2 (09:38→20:43)
[2024-12-24] MEDS: ASPIRIN 81 MG ENTERIC TABLET PO (09:38)
[2024-12-24] MEDS: oxyBUTYnin CHLORIDE XL 5 MG TAB.ER.24 10 MG PO (09:39)
[2024-12-24] MEDS: SERTRALINE HCL 50 MG TABLET 100 MG PO ×2 (09:39→20:42)
[2024-12-24] MEDS: PANTOPRAZOLE 40 MG TABLET PO (09:39)
--- NOTE | 2024-12-24 10:02 | P.PNIM_ITS ---
Progress Note: A&P Assessment and Plan (1) Weakness: Code(s): R53.1 - Weakness Status: Acute Assessment and Plan: * Likely due to UTI superimposed on her already debilitated state for which she was in rehab at [facility] (2) UTI (urinary tract infection): Qualifiers: Hematuria presence: without hematuria Urinary tract infection type: acute cystitis Qualified Code(s): N30.00 - Acute cystitis without hematuria Code(s): N39.0 - Urinary tract infection, site not specified Status: Acute Assessment and Plan: * E coli sensitive to multiple drugs * Continue ceftriaxone, started December 20 * 12/23 WBC increased to 16.4 , 12/24 down to 8.4 (3) Acute kidney injury superimposed on CKD: Code(s): N17.9 - Acute kidney failure, unspecified; N18.9 - Chronic kidney disease, unspecified Status: Acute Assessment and Plan: * Creatinine 1.86 at admission * 12/23 creatinine 1.13, 12/24 1.11 (4) Hypokalemia: Code(s): E87.6 - Hypokalemia Status: Acute Assessment and Plan: * K 2.2 admission * Cause unclear, malnutrition likely playing a role * initial repletion with 40 KCl PO and 40 KCl IV * 12/23 3.0, potassium chloride 40 mEq p.o. x2 * 12/24 3.8 (5) HTN (hypertension): Qualifiers: Hypertension type: essential hypertension Qualified Code(s): I10 - Essential (primary) hypertension Code(s): I10 - Essential (primary) hypertension Status: Chronic Assessment and Plan: * 12/24 reviewed and controlled (6) Obstructive sleep apnea on CPAP: Code(s): G47.33 - Obstructive sleep apnea (adult) (pediatric); Z99.89 - Dependence on other enabling machines and devices Status: Acute Assessment and Plan: * Wears oxygen 5 L at night and p.r.n. during the day and has done so for the past few years * 12/23 oxygen saturation 98% on 2 LPM by NH * 12/23 CT chest IMPRESSION: 1. Consolidation in the dependent aspect of the bilateral lower lobes with associated volume loss and would favor atelectasis over pneumonia. 2. Enlargement of the main pulmonary artery consistent with pulmonary arterial hypertension. 3. Goiter with chronic asymmetric enlargement of the right thyroid lobe. Could consider thyroid ultrasound for risk stratification. (7) Abdominal pain: Qualifiers: Abdominal location: periumbilical Qualified Code(s): R10.33 - Periumbilical pain Code(s): R10.9 - Unspecified abdominal pain Status: Acute Assessment and Plan: * 5/3 resolved (8) Tremors of nervous system: Code(s): R25.1 - Tremor, unspecified Status: Acute Assessment and Plan: * Likely due to lamotrigine plus multiple serotonin urgent drugs * Monitor, discussed with patient that this is something to discuss with her outpatient psychiatrist * Neurology consultation noted (9) Protein calorie malnutrition: Code(s): E46 - Unspecified protein-calorie malnutrition Status: Acute Assessment and Plan: * 5/3 albumin 2.8 * Encourage healthy diet (10) Thyroid Nodule: Code(s): E04.1 - Nontoxic single thyroid nodule Status: Acute Assessment and Plan: * 5/3 Thyroid U/s: IMPRESSION: 1. 3.0 cm TI RADS 5 right thyroid nodule for which ultrasound-guided biopsy would be recommended. * She has had these in the past with acellular aspirations x 2 * Defer to PCP for f/u of this as it is chronic and unrelated to her current issues Subjective Date/time seen: 12/24/24 10:02 Interval history: Feeling better today. Tolerated breakfast. But while sitting up pad a cramp in the left inframammary to left lateral chest the lasted for less than a minute. It her to breathe or move but felt better when she stretched out. Admitting complaint is that she is weak and can not walk like she would normally. Denied any focal weakness. Denied any GI or difficulties. Denied any abnormal bleeding. Review of Systems Review of Systems: All systems reviewed & are unremarkable except as noted in HPI and below Exam Narrative: HEENT: PERRL, sclerae nonicteric, pharyngeal mucosa pink and intact NECK: No JVD, adenopathy CHEST: Clear to auscultation. Normal effort. HEART: NL S1/S2, regular, no murmur ABDOMEN: BS+, soft, nontender, no mass, no bruits EXTREMITIES: No cyanosis, edema, or clubbing NEUROLOGIC: CN intact and symmetric to inspection. Mild fine tremor of outstretched hands is partially suppressed by intentional movement. MUSCULOSKELETAL: Tone and strength symmetric. PSYCH: Alert. Oriented to person, place, and time. Objective Data Vital Signs Vital Signs: Vital Signs - 24 hr 12/23/24 12:00 12/23/24 14:00 12/23/24 16:00 Temperature 97.8 F Pulse Rate 87 85 88 Respiratory Rate 18 Blood Pressure 122/48 L Pulse Oximetry 100 Oxygen Delivery Oxygen Flow Rate 12/23/24 20:00 12/23/24 20:00 12/23/24 21:50 Temperature 99.5 F Pulse Rate 81 86 81 Respiratory Rate 14 14 Blood Pressure 111/89 Pulse Oximetry 96 96 Oxygen Delivery Nasal Cannula Oxygen Flow Rate 5 12/23/24 22:35 12/23/24 23:10 12/24/24 00:00 Temperature Pulse Rate 80 88 Respiratory Rate 20 Blood Pressure Pulse Oximetry 97 95 Oxygen Delivery Nasal Cannula BiPAP Oxygen Flow Rate 2 12/24/24 02:23 12/24/24 04:00 12/24/24 05:45 Temperature 98.2 F Pulse Rate 80 80 83 Respiratory Rate 20 20 Blood Pressure 115/54 L Pulse Oximetry 95 100 Oxygen Delivery BiPAP Oxygen Flow Rate 12/24/24 08:00 12/24/24 09:35 12/24/24 09:38 Temperature 98.1 F Pulse Rate 80 83 Respiratory Rate 16 Blood Pressure 107/52 L Pulse Oximetry 96 96 Oxygen Delivery Room Air Oxygen Flow Rate Intake/Output Intake/Output: Intake & Output 12/21/24 12/22/24 12/23/24 12/24/24 23:59 23:59 23:59 23:59 Intake Total 3770 1350 1430 240 Output Total 200 100 500 Balance 3570 1250 930 240 Meds/Results Medications: Active Medications Generic Name Dose Route Start Last Admin Trade Name Freq PRN Reason Stop Dose Admin Acetaminophen 650 mg 12/20/24 10:56 Acetaminophen 325 Mg Tablet PO Q4H PRN Mild Pain (1-3) or Fever Hydrocodone Bitart/Acetaminophen 1 tab 12/20/24 10:56 Hydrocodone/Acetaminophen (*Crx) 5-325 Mg Tablet PO Q4H PRN Pain Rated 4-6 Albuterol 1 - 2 puff 12/20/24 18:38 Albuterol Sulfate (*Sp) Aerosol 1 Puff INHALATION Q4-6H PRN shortness of breath or wheezing Ascorbic Acid 2,000 mg 12/21/24 12:00 12/23/24 13:01 Ascorbic Acid 500 Mg Tablet PO 2,000 mg 1200 CARLIN Administration Aspirin 81 mg 12/21/24 09:00 12/24/24 09:38 Aspirin 81 Mg Enteric Tablet PO 81 mg DAILY CARLIN Administration Bupropion HCl 150 mg 12/20/24 21:00 12/23/24 20:48 Bupropion Hcl Xl (24 Hr) 150 Mg Tabcr PO 150 mg HS CARLIN Administration Duloxetine HCl 60 mg 12/20/24 21:00 12/24/24 09:38 Duloxetine Hcl 60 Mg Capsule.Dr PO 60 mg Q12H CARLIN Administration Ferrous Sulfate 325 mg 12/21/24 12:00 12/23/24 13:02 Ferrous Sulfate [address] PO 325 mg 1200 CARLIN Administration Ceftriaxone Sodium 1 gm in 50 mls @ 100 mls/hr 12/20/24 20:00 12/23/24 21:16 Rocephin 1 Gm/Ns 50 Ml IVPB Infused Q24H CARLIN Infusion Lamotrigine 200 mg 12/20/24 21:00 12/24/24 09:38 Lamotrigine 100 Mg Tablet PO 200 mg Q12H CARLIN Administration Loperamide HCl 2 mg 12/20/24 18:38 12/20/24 22:19 Loperamide Hcl 2 Mg Capsule PO 2 mg QID PRN Administration diarrhea Lorazepam 2 mg 12/20/24 21:00 12/24/24 09:38 Lorazepam (*Crx) 1 Mg Tablet PO 2 mg Q12H CARLIN Administration Ondansetron HCl 4 mg 12/20/24 10:56 12/21/24 09:28 Ondansetron Inj 4 Mg/2 Ml Vial IV PUSH 4 mg Q4H PRN Administration Nausea Oxybutynin Chloride 10 mg 12/21/24 09:00 12/24/24 09:39 Oxybutynin Chloride Xl 5 Mg Tab.Er.24 PO 10 mg DAILY CARLIN Administration Pantoprazole Sodium 40 mg 12/21/24 09:00 12/24/24 09:39 Pantoprazole 40 Mg Tablet PO 40 mg QAM CARLIN Administration Sertraline HCl 100 mg 12/20/24 21:00 12/24/24 09:39 Sertraline Hcl 50 Mg Tablet PO 100 mg Q12H CARLIN Administration Trazodone HCl 200 mg 12/20/24 18:38 12/23/24 20:47 Trazodone Hcl 50 Mg Tablet PO 200 mg QHS PRN Administration Insomnia Vitamin B Complex 2 cap 12/21/24 12:00 12/23/24 13:01 Vitamin B Complex Capsule PO 2 cap 1200 CARLIN Administration Vitamin D 10,000 units 12/21/24 12:00 12/23/24 13:01 Cholecalciferol 1,000 Units Tablet PO 10,000 units 1200 CARLIN Administration Radiology Results: ITS Impressions Chest X-Ray 12/20/24 09:02 IMPRESSION: 1: NO ACUTE CARDIOPULMONARY DISEASE. Head CT 12/23/24 06:41 IMPRESSION: 1. No acute intracranial process. 2. Right occipital craniotomy with underlying small focus of encephalomalacia which could be related to prior surgery or infarction. Chest CT 12/23/24 08:25 IMPRESSION: 1. Consolidation in the dependent aspect of the bilateral lower lobes with associated volume loss and would favor atelectasis over pneumonia. 2. Enlargement of the main pulmonary artery consistent with pulmonary arterial hypertension. 3. Goiter with chronic asymmetric enlargement of the right thyroid lobe. Could consider thyroid ultrasound for risk stratification. Thyroid Ultrasound 12/23/24 12:09 IMPRESSION: 1. 3.0 cm TI RADS 5 right thyroid nodule for which ultrasound-guided biopsy would be recommended. Labs Labs: Laboratory Results - last 24 hr 12/24/24 04:12 WBC 8.4 RBC 3.63 L Hgb 11.6 L Hct 36.8 L MCV 101.4 H MCH 32.0 MCHC 31.5 L RDW 14.4 Plt Count 237 MPV 9.5 Immature Gran % (Auto) 1.3 H Neut % (Auto) 70.2 Lymph % (Auto) 15.2 L [place] % (Auto) 10.3 H Eos % (Auto) 2.3 Baso % (Auto) 0.7 Lymph # (Auto) 1.27 [place] # (Auto) 0.9 H Eos # (Auto) 0.2 Baso # (Auto) 0.1 Abs Immat Gran (auto) 0.11 H Absolute Neuts (auto) 5.9 Absolute Nucleated RBC 0.000 Nucleated RBC % 0.0 Sodium 138 Potassium 3.8 Chloride 106 Carbon Dioxide 26 Anion Gap 6 BUN 11 Creatinine 1.11 H Estim Creat Clear Calc 52 Estimated GFR 49 L Glucose 80 Calcium 8.7 Phosphorus 3.9 Magnesium 1.8 Albumin 2.6 L
[2024-12-24] MEDS: CHOLECALCIFEROL 1,000 UNITS TABLET 10000 UNITS PO (11:57)
[2024-12-24] MEDS: ASCORBIC ACID 500 MG TABLET 2000 MG PO (11:57)
[2024-12-24] MEDS: VITAMIN B COMPLEX CAPSULE 2 CAP PO (11:58)
[2024-12-24] MEDS: FERROUS SULFATE 325 MG TABLET DR PO (11:58)
[2024-12-24] MEDS: traZODone HCL 50 MG TABLET 200 MG PO (20:42)
[2024-12-24] MEDS: buPROPion HCL XL (24 HR) 150 MG TABCR PO (20:42)
[2024-12-25] VITALS (7 sets, daily range): BP systolic 110; BP diastolic 48; PULSE 82–101; RESP 16–25; TEMP 37; O2SAT 92–96
[2024-12-25 05:15] LABS: Albumin Level 2.7 g/dL (3.5-5.1); Anion Gap 4 mmol/L (4-12); Blood Urea Nitrogen 12 mg/dL (7-17); Calcium 8.5 mg/dL (8.4-10.2); Carbon Dioxide 25 mmol/L (22-30); Chloride 105 mmol/L (98-107); Estimated CRCL calculation 58 ml/min; Estimated Glomerular Filt Rate 55; Glucose 82 mg/dL (65-110); Potassium 3.6 mmol/L (3.4-5.0); Sodium 134 mmol/L (137-145)
[2024-12-25] MEDS: oxyBUTYnin CHLORIDE XL 5 MG TAB.ER.24 10 MG PO (08:00)
[2024-12-25] MEDS: LORazepam (*CRX) 1 MG TABLET 2 MG PO (08:00)
[2024-12-25] MEDS: PANTOPRAZOLE 40 MG TABLET PO (08:00)
[2024-12-25] MEDS: DULoxetine HCL 60 MG CAPSULE.DR PO (08:00)
[2024-12-25] MEDS: lamoTRIgine 100 MG TABLET 200 MG PO (08:00)
[2024-12-25] MEDS: ASPIRIN 81 MG ENTERIC TABLET PO (08:00)
[2024-12-25] MEDS: SERTRALINE HCL 50 MG TABLET 100 MG PO (08:00)
[2024-12-25] MEDS: VITAMIN B COMPLEX CAPSULE 2 CAP PO (11:04)
[2024-12-25] MEDS: FERROUS SULFATE 325 MG TABLET DR PO (11:04)
[2024-12-25] MEDS: ASCORBIC ACID 500 MG TABLET 2000 MG PO (11:04)
[2024-12-25] MEDS: CHOLECALCIFEROL 1,000 UNITS TABLET 10000 UNITS PO (11:04)
--- NOTE | 2024-12-25 11:27 | WPDNEUROPN ---
Progress Note: A&P Assessment and Plan (1) Generalized weakness: Code(s): R53.1 - Weakness Status: Acute Assessment and Plan: This was her presenting symptom and is improving. It may have been due to underlying urinary tract infection she is being treated. (2) Morbid obesity: Code(s): E66.01 - Morbid (severe) obesity due to excess calories Status: Acute (3) Acute kidney injury superimposed on CKD: Code(s): N17.9 - Acute kidney failure, unspecified; N18.9 - Chronic kidney disease, unspecified Status: Acute (4) UTI (urinary tract infection): Qualifiers: Urinary tract infection type: acute cystitis Hematuria presence: without hematuria Qualified Code(s): N30.00 - Acute cystitis without hematuria Code(s): N39.0 - Urinary tract infection, site not specified Status: Acute (5) Obstructive sleep apnea on CPAP: Code(s): G47.33 - Obstructive sleep apnea (adult) (pediatric); Z99.89 - Dependence on other enabling machines and devices Status: Acute Plan Continue with the current medical therapy for read tract infection and possible pneumonia. She was on her right thyroid nodule which also should be addressed. Subjective Date/time seen: 12/25/24 11:27 Interval history: The patient is 69 years old with a history of morbid obesity and bipolar disorder and she presented to the hospital with generalized weakness. She feels she is getting better. Her creatinine is now 1.0. However GFR is 5. History obstructive sleep apnea syndrome. 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 She denies any history of seizures or headache or any other specific symptoms in upper lower limbs Review of Systems Review of Systems: All systems reviewed & are unremarkable except as noted in HPI and below Exam Narrative: fully conscious alert oriented to self place and person. No aphasia or dysarthria. Examination head and neck was unremarkable. Cranial she individual testing intact. Motor system normal power and tone in both upper lower limbs. No cogwheeling or involuntary movements are seen. Objective Data Vital Signs Vital Signs: Vital Signs - 24 hr 12/24/24 12:00 12/24/24 14:00 12/24/24 16:00 Temperature 97.3 F L Pulse Rate 84 82 78 Respiratory Rate 20 Blood Pressure 125/88 Pulse Oximetry 98 Oxygen Delivery 12/24/24 19:56 12/24/24 20:00 12/24/24 20:00 Temperature Pulse Rate 64 64 84 Respiratory Rate 16 16 Blood Pressure 171/75 H Pulse Oximetry 98 98 Oxygen Delivery Room Air 12/25/24 00:00 12/25/24 00:08 12/25/24 04:00 Temperature Pulse Rate 94 82 94 Respiratory Rate 25 H Blood Pressure Pulse Oximetry 96 Oxygen Delivery BiPAP 12/25/24 04:19 12/25/24 08:02 12/25/24 08:02 Temperature 98.6 F Pulse Rate 96 92 Respiratory Rate 16 Blood Pressure 110/48 L Pulse Oximetry 96 95 Oxygen Delivery Room Air 12/25/24 09:05 Temperature Pulse Rate Respiratory Rate Blood Pressure Pulse Oximetry 92 Oxygen Delivery Room Air Intake/Output Intake/Output: Intake & Output 12/22/24 12/23/24 12/24/24 12/25/24 23:59 23:59 23:59 23:59 Intake Total 1350 1430 1250 50 Output Total 100 500 250 Balance 1549 798 8077 50 Meds/Results Medications: Active Medications Generic Name Dose Route Start Last Admin Trade Name Freq PRN Reason Stop Dose Admin Acetaminophen 650 mg 12/20/24 10:56 Acetaminophen 325 Mg Tablet PO Q4H PRN Mild Pain (1-3) or Fever Hydrocodone Bitart/Acetaminophen 1 tab 12/20/24 10:56 Hydrocodone/Acetaminophen (*Crx) 5-325 Mg Tablet PO Q4H PRN Pain Rated 4-6 Albuterol 1 - 2 puff 12/20/24 18:38 Albuterol Sulfate (*Sp) Aerosol 1 Puff INHALATION Q4-6H PRN shortness of breath or wheezing Ascorbic Acid 2,000 mg 12/21/24 12:00 12/25/24 11:04 Ascorbic Acid 500 Mg Tablet PO 2,000 mg 1200 CARLIN Administration Aspirin 81 mg 12/21/24 09:00 12/25/24 08:00 Aspirin 81 Mg Enteric Tablet PO 81 mg DAILY CARLIN Administration Bupropion HCl 150 mg 12/20/24 21:00 12/24/24 20:42 Bupropion Hcl Xl (24 Hr) 150 Mg Tabcr PO 150 mg HS CARLIN Administration Cephalexin HCl 500 mg 12/25/24 21:00 Cephalexin 500 Mg Capsule PO 12/27/24 09:01 Q12HR CARLIN Duloxetine HCl 60 mg 12/20/24 21:00 12/25/24 08:00 Duloxetine Hcl 60 Mg Capsule.Dr PO 60 mg Q12H CARLIN Administration Ferrous Sulfate 325 mg 12/21/24 12:00 12/25/24 11:04 Ferrous Sulfate [address] PO 325 mg 1200 CARLIN Administration Lamotrigine 200 mg 12/20/24 21:00 12/25/24 08:00 Lamotrigine 100 Mg Tablet PO 200 mg Q12H CARLIN Administration Loperamide HCl 2 mg 12/20/24 18:38 12/20/24 22:19 Loperamide Hcl 2 Mg Capsule PO 2 mg QID PRN Administration diarrhea Lorazepam 2 mg 12/20/24 21:00 12/25/24 08:00 Lorazepam (*Crx) 1 Mg Tablet PO 2 mg Q12H CARLIN Administration Ondansetron HCl 4 mg 12/20/24 10:56 12/21/24 09:28 Ondansetron Inj 4 Mg/2 Ml Vial IV PUSH 4 mg Q4H PRN Administration Nausea Oxybutynin Chloride 10 mg 12/21/24 09:00 12/25/24 08:00 Oxybutynin Chloride Xl 5 Mg Tab.Er.24 PO 10 mg DAILY CARLIN Administration Pantoprazole Sodium 40 mg 12/21/24 09:00 12/25/24 08:00 Pantoprazole 40 Mg Tablet PO 40 mg QAM CARLIN Administration Sertraline HCl 100 mg 12/20/24 21:00 12/25/24 08:00 Sertraline Hcl 50 Mg Tablet PO 100 mg Q12H CARLIN Administration Trazodone HCl 200 mg 12/20/24 18:38 12/24/24 20:42 Trazodone Hcl 50 Mg Tablet PO 200 mg QHS PRN Administration Insomnia Vitamin B Complex 2 cap 12/21/24 12:00 12/25/24 11:04 Vitamin B Complex Capsule PO 2 cap 1200 CARLIN Administration Vitamin D 10,000 units 12/21/24 12:00 12/25/24 11:04 Cholecalciferol 1,000 Units Tablet PO 10,000 units 1200 CARLIN Administration Radiology Results: ITS Impressions Chest X-Ray 12/20/24 09:02 IMPRESSION: 1: NO ACUTE CARDIOPULMONARY DISEASE. Head CT 12/23/24 06:41 IMPRESSION: 1. No acute intracranial process. 2. Right occipital craniotomy with underlying small focus of encephalomalacia which could be related to prior surgery or infarction. Chest CT 12/23/24 08:25 IMPRESSION: 1. Consolidation in the dependent aspect of the bilateral lower lobes with associated volume loss and would favor atelectasis over pneumonia. 2. Enlargement of the main pulmonary artery consistent with pulmonary arterial hypertension. 3. Goiter with chronic asymmetric enlargement of the right thyroid lobe. Could consider thyroid ultrasound for risk stratification. Thyroid Ultrasound 12/23/24 12:09 IMPRESSION: 1. 3.0 cm TI RADS 5 right thyroid nodule for which ultrasound-guided biopsy would be recommended. Labs Labs: Laboratory Results - last 24 hr 12/25/24 04:25 Sodium 134 L Potassium 3.6 Chloride 105 Carbon Dioxide 25 Anion Gap 4 BUN 12 Creatinine 1.00 Estim Creat Clear Calc 58 Estimated GFR 55 L Glucose 82 Calcium 8.5 Phosphorus 4.0 Albumin 2.7 L
--- NOTE | 2024-12-25 11:58 | P.DS_ITS ---
DS: Admitting Diagnosis Discharge Date 12/25/24 Admitting Diagnosis Weakness DS: Discharge Diagnosis Discharge Diagnosis (1) Weakness: Code(s): R53.1 - Weakness Status: Acute Assessment and Plan: * Likely due to UTI superimposed on her already debilitated state for which she was in rehab at [facility] (2) UTI (urinary tract infection): Qualifiers: Urinary tract infection type: acute cystitis Hematuria presence: without hematuria Qualified Code(s): N30.00 - Acute cystitis without hematuria Code(s): N39.0 - Urinary tract infection, site not specified Status: Acute Assessment and Plan: * E coli sensitive to multiple drugs * Continue ceftriaxone, started December 20 * 12/23 WBC increased to 16.4 , 12/24 down to 8.4 (3) Acute kidney injury superimposed on CKD: Code(s): N17.9 - Acute kidney failure, unspecified; N18.9 - Chronic kidney disease, unspecified Status: Acute Assessment and Plan: * Creatinine 1.86 at admission * 12/23 creatinine 1.13, 12/24 1.11 (4) Hypokalemia: Code(s): E87.6 - Hypokalemia Status: Acute Assessment and Plan: * K 2.2 admission * Cause unclear, malnutrition likely playing a role * initial repletion with 40 KCl PO and 40 KCl IV * 12/23 3.0, potassium chloride 40 mEq p.o. x2 * 12/24 3.8 (5) HTN (hypertension): Qualifiers: Hypertension type: essential hypertension Qualified Code(s): I10 - Essential (primary) hypertension Code(s): I10 - Essential (primary) hypertension Status: Chronic Assessment and Plan: * 12/24 reviewed and controlled (6) Obstructive sleep apnea on CPAP: Code(s): G47.33 - Obstructive sleep apnea (adult) (pediatric); Z99.89 - Dependence on other enabling machines and devices Status: Acute Assessment and Plan: * Wears oxygen 5 L at night and p.r.n. during the day and has done so for the past few years * 12/23 oxygen saturation 98% on 2 LPM by [place] * 12/23 CT chest IMPRESSION: 1. Consolidation in the dependent aspect of the bilateral lower lobes with associated volume loss and would favor atelectasis over pneumonia. 2. Enlargement of the main pulmonary artery consistent with pulmonary arterial hypertension. 3. Goiter with chronic asymmetric enlargement of the right thyroid lobe. Could consider thyroid ultrasound for risk stratification. (7) Abdominal pain: Qualifiers: Abdominal location: periumbilical Qualified Code(s): R10.33 - Periumbilical pain Code(s): R10.9 - Unspecified abdominal pain Status: Acute Assessment and Plan: * 5/3 resolved (8) Tremors of nervous system: Code(s): R25.1 - Tremor, unspecified Status: Acute Assessment and Plan: * Likely due to lamotrigine plus multiple serotonin urgent drugs * Monitor, discussed with patient that this is something to discuss with her outpatient psychiatrist * Neurology consultation noted (9) Protein calorie malnutrition: Code(s): E46 - Unspecified protein-calorie malnutrition Status: Acute Assessment and Plan: * 5/3 albumin 2.8 * Encourage healthy diet (10) Thyroid Nodule: Code(s): E04.1 - Nontoxic single thyroid nodule Status: Acute Assessment and Plan: * 5/3 Thyroid U/s: IMPRESSION: 1. 3.0 cm TI RADS 5 right thyroid nodule for which ultrasound-guided biopsy would be recommended. * She has had these in the past with acellular aspirations x 2 * Defer to PCP for f/u of this as it is chronic and unrelated to her current issues DS: Summary Hospital Course Hospital Course: 69 y/o morbidly obese female while at SNF developed weakness, patient was sent to the ER for further evaluation, patient was found to have UTI and dehydration and suspect cause of her weakness, patient urine culture grew E coli susceptible to ceftriaxone was treated and hydrated as her Scr upon arrival was 1.86 and today it is 1.00, patient stats she is feeling better and clinically stable, will discharge patient to SNF today. Time Spent with Patient Time attestation: Total time spent providing and/or coordinating discharge services: Exam Narrative: Patient is comfortable, NAD HEENT: eyes are clear and none icteric LUNGS:CTA HEART: RR S1S2 ABD: BS+, Soft and nontender Lower extremities: no edema SKIN: nonjaundiced Neuro: grossly intact. DS: Data Data Completed and Pending Labs on day of discharge: Labs from last 24 hours 12/25/24 04:25 Sodium 134 L Potassium 3.6 Chloride 105 Carbon Dioxide 25 Anion Gap 4 BUN 12 Creatinine 1.00 Estim Creat Clear Calc 58 Estimated GFR 55 L Glucose 82 Calcium 8.5 Phosphorus 4.0 Albumin 2.7 L Discharge Plan Discharge Attending physician on discharge: Isamar Billings Consulting providers: Dima Palacios Discharging Clinician: Ginger Patten Patient Disposition: SNF Activity: as tolerated Diet: heart healthy Discharge Instructions: patient to follow up with her primary care provider as soon as possible. Patient Language: Tamazight Stand Alone Forms: General Discharge Information Follow-up/Referrals: Yannick Umanzor DO [Primary Care Provider] - Discharge Medications: New cephalexin 500 mg Capsule 500 mg PO Q12HR Qty: 10 0RF Continued duloxetine [Cymbalta] 60 mg capsule,delayed release(DR/EC) 60 mg PO Q12H Tyrvaya 0.03 mg/spray spray, metered, non-aerosol 0.03 mg intranasal Q12H Rx Instructions: administer into each nostril; approximately 12 hours apart cholecalciferol (vitamin D3) 250 mcg (10,000 unit) capsule 250 mcg PO 1200 trazodone 100 mg tablet 200 mg PO QHS PRN (Reason: Insomnia) acetaminophen 325 mg capsule 650 mg PO Q4H PRN (Reason: pain (scale score 1-3)) loperamide [Anti-Diarrheal (loperamide)] 2 mg tablet 2 mg PO QID PRN (Reason: diarrhea) lorazepam 2 mg tablet 2 mg PO Q12H Qty: 10 0RF carvedilol 12.5 mg tablet 12.5 mg PO Q12H sertraline 100 mg tablet 100 mg PO Q12H ferrous sulfate 325 mg (65 mg iron) Tablet 325 mg PO 1200 ascorbic acid (vitamin C) 1,000 mg Tablet,Chewable 2 g PO 1200 vitamin B complex Tablet,Chewable 2 tablet PO 1200 lamotrigine 200 mg tablet 200 mg PO Q12H oxybutynin chloride 10 mg tablet extended release 24hr 10 mg PO DAILY bupropion HCl 150 mg tablet extended release 24 hr 150 mg PO HS aspirin 81 mg Tablet,Delayed Release (Dr/Ec) 81 mg PO DAILY (DME) Overnight Ox See Rx Instructions .Route .MEDSUPPLY Qty: 1 0RF Rx Instructions: Overnight Oximetry 4 L/Min BIPAP DX Code: G47.33 Length of Need: Lifetime DME:WILIAN FlemingI: [id number] albuterol sulfate 90 mcg/actuation HFA aerosol inhaler 1 - 2 puff inhalation Q4-6H PRN (Reason: shortness of breath or wheezing) Qty: 8.5 2RF amlodipine 5 mg tablet 5 mg PO HS Qty: 90 1RF hydrochlorothiazide 12.5 mg tablet 12.5 mg PO QAM Qty: 90 1RF pantoprazole 40 mg tablet,delayed release (DR/EC) See Rx Instructions .ROUTE .COMPLEX Qty: 90 1RF Dose Instruction: TAKE 1 TABLET BY MOUTH EVERY DAY IN THE MORNING Rx Instructions: TAKE 1 TABLET BY MOUTH EVERY DAY IN THE MORNING Wegovy 1 mg/0.5 mL pen injector 1 mg subcut Q7D Qty: 2 0RF Date of admission: 12/20/24 13:10 Primary Care Provider: Yannick Umanzor Admitting Provider: Estrella De La Torre Attending physician on admission: Isamar Billings Condition: Stable
[2024-12-27 22:54] LABS: Lamotrigine Lamictal 11.5 mcg/mL (2.5-15.0)
== END 2024-12-25 14:30 | DRG 690 ==
LOC: ANHED 08:07 → ANH3MEDSUR 11:48 → ANH2MED 15:50
PROVIDERS: Internal Medicine; Nurse Practitioner Acute Care; Student in an Organized Health Care Education/Training Program; Admitting Provider Internal Medicine; Emergency Provider Emergency Medicine; PCP Internal Medicine; Visit Provider Family Medicine
DX: N39.0 Urinary tract infection, site not specified (principal); N17.9 Acute kidney failure, unspecified; E46 Unspecified protein-calorie malnutrition; Z68.41 Body mass index [BMI] 40.0-44.9, adult; N18.9 Chronic kidney disease, unspecified; I12.9 Hypertensive chronic kidney disease with stage 1 through stage 4 chronic kidney disease, or unspecified chronic kidney disease; I89.0 Lymphedema, not elsewhere classified; E87.6 Hypokalemia; E86.0 Dehydration; E04.1 Nontoxic single thyroid nodule; E66.01 Morbid (severe) obesity due to excess calories; B96.20 Unspecified Escherichia coli [E. coli] as the cause of diseases classified elsewhere; J98.8 Other specified respiratory disorders; D50.9 Iron deficiency anemia, unspecified; K21.9 Gastro-esophageal reflux disease without esophagitis; R29.6 Repeated falls; R25.1 Tremor, unspecified; G47.33 Obstructive sleep apnea (adult) (pediatric); F31.9 Bipolar disorder, unspecified; F41.9 Anxiety disorder, unspecified; Z96.652 Presence of left artificial knee joint; Z20.822 Contact with and (suspected) exposure to COVID-19; Z86.011 Personal history of benign neoplasm of the brain; Z98.84 Bariatric surgery status; Z98.1 Arthrodesis status; Z87.891 Personal history of nicotine dependence; Z79.82 Long term (current) use of aspirin
CPT/HCPCS: 36415; 70450; 71046; 71250; 76536; 80048; 80053; 80069; 80175; 81001; 83690; 83735; 84443; 85025; 85652; 86140; 87086; 87186; 87493; 87637; 93005; 96365; 96366; 96375; 97110; 97161; 97166; 97530; 99285; A9270; G0378; J0696; J2405; J3480; J7030; J7040

== ENCOUNTER 2025-01-11 01:31 | Emergency (ER) | payer OTHER, MEDICARE, SELFPAY ==
--- NOTE | ~2025-01-11 | CT_ITS ---
Non-contrast Head CT History: Trauma COMPARISON: 12/23/2024 Technique: Axial non-contrast imaging of the brain was performed. Dose reduction technique was used on this scan by utilizing automated exposure control and iterative reconstruction technique. The dose -length product (DLP) was 681.00 mGy-cm. Findings: There is a very small acute subdural hematoma present along the left side of the anterior f radha cerebri, measuring up to 3 mm in thickness.. Brain parenchyma appears normal. The ventricles an d subarachnoid spaces are normal in size. Stable postoperative change at the occipital aspect of the calvarium. The visualized paranasal sinuses and mastoid air cells are clear. Impression: Very small acute subdural hematoma along the left side of the anterior falx cerebri, as detailed veronica short. Reviewed, dictated and finalized at [facility]. Impression: Very small acute subdural hematoma along the left side of the anterior falx cer ebri, as detailed above.
--- NOTE | ~2025-01-11 | CT_ITS ---
Noncontrast CT scan of the cervical spine Technique: Multiple contiguous axial [address] images of the cervical spine were obtained and rec onstructed in 2D sagittal and coronal planes on the acquisition scanner. Dose reduction technique was used on this scan by utilizing automated exposure control, adjustment of the mA and/or kV according to patient size. The dose-length product (DLP) was 425.03 mGy-cm. Clinical History: Pain Findings: No fractures or dislocations. There is reversal normal cervical lordosis. There is severe degenerative disc narrowing at C4-C5, C5-C6, and C6-C7. There are anterior fused osteophytes from C4 through C7 as well, compatible DISH. There is mild bilateral facet arthropathy at C2-C3. Probable min imal right neural foraminal narrowing at C3-C4. There is mild disc osteophyte complex at C4-C5 with b ilateral neural foraminal narrowing and probable mild canal stenosis. There is disc osteophyte comple x versus posterior longitudinal ligament ossification at C5-C6, with bilateral neural foraminal narro wing and moderate canal stenosis. There is disc osteophyte complex versus posterior longitudinal liga ment ossification at C6-C7, with moderate canal stenosis and bilateral neural foraminal narrowing. No prevertebral soft tissue swelling. Impression: No fracture or subluxation of the cervical spine. Reversal of the normal cervical lordosis. Degenerative spondylosis and/or ossification of the posterior longitudinal ligament, as detailed shawnv e. Reviewed, dictated and finalized at [facility]. Impression: No fracture or subluxation of the cervical spine. Reversal of the normal cervical lordosis. Degenerative spondylosis and/or ossification of the posterior longitudinal liga ment, as detailed above.
[2025-01-11 01:36] VITALS: BP 103/60; PULSE 70; RESP 16; TEMP 36.5; O2SAT 100
--- NOTE | 2025-01-11 01:52 | ED_ITS ---
HPI - General Adult General Chief complaint: Head Injury Stated complaint: HEAD LAC S/P FALL Time Seen by Provider: 01/11/25 01:40 History of Present Illness HPI narrative: 69-year-old female present to the emergency department for evaluation after having a fall and head injury. Patient states that she was caught up in her sheets in her bed and ended up falling out of bed and striking her head. Patient denies have any loss of consciousness. Patient complains bilateral shoulder pain but has full range of motion. Patient also complains of headache. Patient is on aspirin but no blood thinners. Related Data Home Medications ?Medication ?Instructions ?Recorded ?Confirmed ?Last Taken ?Type duloxetine 60 mg capsule,delayed 60 mg PO Q12H 01/21/21 12/20/24 Unknown History release (Cymbalta) cholecalciferol (vitamin D3) 250 250 mcg PO 1200 01/02/22 12/20/24 Unknown History mcg (10,000 unit) capsule trazodone 100 mg tablet 200 mg PO QHS PRN Insomnia 01/02/22 12/20/24 Unknown History ascorbic acid (vitamin C) 1,000 mg 2 g PO 1200 09/08/23 12/20/24 Unknown History chewable tablet aspirin 81 mg tablet,delayed 81 mg PO DAILY 09/08/23 12/20/24 Unknown History release bupropion HCl 150 mg 24 hr tablet, 150 mg PO HS 09/08/23 12/20/24 Unknown History extended release carvedilol 12.5 mg tablet 12.5 mg PO Q12H 09/08/23 12/20/24 Unknown History ferrous sulfate 325 mg (65 mg 325 mg PO 1200 09/08/23 12/20/24 Unknown History iron) tablet lamotrigine 200 mg tablet 200 mg PO Q12H 09/08/23 12/20/24 Unknown History oxybutynin chloride 10 mg 10 mg PO DAILY 09/08/23 12/20/24 Unknown History tablet,extended release 24 hr sertraline 100 mg tablet 100 mg PO Q12H 09/08/23 12/20/24 Unknown History vitamin B complex 2 tablet PO 1200 09/08/23 12/20/24 Unknown History varenicline tartrate 0.03 mg/spray 0.03 mg intranasal Q12H 03/14/24 12/20/24 Unknown History metered nasal spray (Tyrvaya) acetaminophen 325 mg capsule 650 mg PO Q4H PRN pain (scale 12/20/24 12/20/24 Unknown History score 1-3) loperamide 2 mg tablet 2 mg PO QID PRN diarrhea 12/20/24 12/20/24 Unknown History (Anti-Diarrheal (loperamide)) Allergies Allergy/AdvReac Type Severity Reaction Status Date / Time acyclovir (From Zovirax) Allergy Severe Hives Verified 01/11/25 04:52 Iodinated Contrast Media Allergy Intermediate Rash Verified 01/11/25 04:52 omeprazole (From Prilosec) AdvReac Intermediate hyperventil Verified 01/11/25 04:52 ate Review of Systems Review of Systems: All systems reviewed & are unremarkable except as noted in HPI and below PMFSH Past Medical History Medical History CKD (chronic kidney disease) Nocturnal oxygen desaturation Body mass index (BMI) of 40.1-44.9 in adult Deafness in left ear JERED (iron deficiency anemia) Lymphedema Dysuria Fracture of left upper extremity Distal radius fracture, left July 2020 Shortness of Breath Decreased diffusion capacity History of tobacco abuse Exercise hypoxemia Brain tumor HTN (hypertension) Obstructive sleep apnea on CPAP Bipolar 1 disorder SIMEON (obstructive sleep apnea) With CPAP use GERD (gastroesophageal reflux disease) Depression Anxiety Surgical History Surgical History History of bladder suspension procedure March 2017 Hx of tonsillectomy History of brain surgery 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 She has 3 children. She is disabled. She quit smoking 5 years ago. The patient denies any marijuana alcohol or illicit drugs. Her is a durable power head miller for healthcare. Primary care physician: Dr. Yannick Umanzor Code status: Full code Smoking packs per day: 1 Smoking cigarettes per day: 20.0 Years smoked: 40 Smoking pack-years: 40.00 Smoking status: Former smoker Tobacco type: cigarettes Second hand tobacco smoke exposure: No Smoking end date: 08/23/14 Alcohol intake: never Substance use: never Substance use type: does not use Do You Feel Safe in your Home?: Yes Lack of Transportation: No Lack of Food: Never True Current Housing: I Have Housing Concerned About Future Housing: No Difficulty Paying Gas/Electric Bills: No Difficulty Paying for Meds: No Currently Unemployed: No Education: Associate Degree Difficulty w/ Childcare or Family Care: No Living arrangements: with family Additional living arrangements comments: [facility] Occupation/Education: retired Additional occupation/education comments: 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 Gender identity (if verbalized by the patient): Female Spiritual care concerns: No Exam Narrative: APPEARANCE: Well appearing, no pain, no distress, well-nourished. HEAD: normocephalic, stellate scalp laceration on posterior scalp. EYES: PERRLA/EOMI, conjunctivae clear. NOSE: Normal no drainage EARS:TMS clear with good light reflex. THROAT: Pharynx clear, no exudate. NECK: Supple. No adenopathy, no masses. RESPIRATORY: Airway patent, respirations nonlabored. Clear to auscultation bilaterally, no rales, rhonchi, wheezing. CARDIOVASCULAR: Regular rate and rhythm without murmurs rubs or gallops. ABDOMINAL: Soft, nontender, nondistended, normal bowel sounds MUSCULOSKELETAL: Moves all extremities. Strength/ROM intact, No edema, No calf tenderness. NEURO: Alert. Cranial nerves II through XII intact. Good gait. Good coordination SKIN: Warm, dry. Normal Color Course Vital Signs Vital signs: Vital Signs Temperature 97.7 F 01/11/25 01:36 Pulse Rate 70 01/11/25 01:36 Respiratory Rate 16 01/11/25 01:36 Blood Pressure 103/60 01/11/25 01:36 Pulse Oximetry 100 01/11/25 01:36 Oxygen Delivery Room Air 01/11/25 01:36 Temperature 97.7 F 01/11/25 01:36 Pulse Rate 64 01/11/25 04:52 Respiratory Rate 22 H 01/11/25 04:52 Blood Pressure 217/165 H 01/11/25 04:52 Pulse Oximetry 98 01/11/25 04:52 Oxygen Delivery Room Air 01/11/25 04:50 Procedures Laceration Laceration 1: Date: 01/11/25 Time: 01:53 Site: scalp Size (cm): 3 Description: stellate Depth: simple, single layer Pre-repair: wound explored and irrigated ====== Skin Level ====== Skin layer closed with: lisa Number of sutures: 4 ====== Subcutaneous Layer ====== ====== Muscle Layer ====== ====== Tendon Layer ====== Medical Decision Making MDM Narrative Medical decision making narrative: 69-year-old female presented emergency department for evaluation for head injury laceration or posterior scalp. Laceration was repaired as described above. Head CT did show concern for 4 mm thickness of a subdural bleed. Patient does have prior history pineal tumor that was taking care of [facility] and patient prefers to go back to [facility]. Cervical spine was negative for acute trauma Patient's initial blood pressures were 103/60 on upon arrival to the emergency department. Repeat blood pressures were significantly elevated with a blood pressure of 217/165. Cardene drip was ordered with a target systolic blood pressure of 150. Ground transport was going to be at least an hour prior to arrival. Patient's transport to [facility] was approximately 40 minutes. With patient's elevated blood pressure and subdural hematoma decision was made to fly the patient. Patient's blood pressure prior to starting the Cardene drip and prior to transfer was once again close to 103 systolic more so Cardene was not started. Prior to departure patient was still alert orientated and at her baseline Differential Diagnosis Differential Diagnosis: Subarachnoid hemorrhage, subdural hematoma, cervical spine fracture, scalp laceration, TA, CVA Vital Signs Vital Signs: Vital Signs Temperature 97.7 F 01/11/25 01:36 Pulse Rate 70 01/11/25 01:36 Respiratory Rate 16 01/11/25 01:36 Blood Pressure 103/60 01/11/25 01:36 Pulse Oximetry 100 01/11/25 01:36 Oxygen Delivery Room Air 01/11/25 01:36 Temperature 97.7 F 01/11/25 01:36 Pulse Rate 64 01/11/25 04:52 Respiratory Rate 22 H 01/11/25 04:52 Blood Pressure 217/165 H 01/11/25 04:52 Pulse Oximetry 98 01/11/25 04:52 Oxygen Delivery Room Air 01/11/25 04:50 Imaging Data Radiologist's impression: CT head impression small amount of subdural blood along the interhemispheric falx measuring approximately 4 mm in thickness. No midline shift. CT C-spine Impression: No acute traumatic abnormality identified. Critical Care Time Critical Care Time Critical Care Time: Yes Total Critical Care Time: 35 Discharge Plan Discharge Clinical Impression: Laceration of scalp, Acute subdural hematoma Patient Disposition: Acute Care Hospital Condition: Serious Instructions: Laceration (DC), Head Injury (ED), Staple Care (ED) Additional Instructions: Lisa will need to be removed in 7-10 days. Wound care as directed. Follow head injury guidelines. Have close follow-up with your primary care physician. Patient Language: Indian Prescriptions: No Action duloxetine [Cymbalta] 60 mg capsule,delayed release(DR/EC) 60 mg PO Q12H Tyrvaya 0.03 mg/spray spray, metered, non-aerosol 0.03 mg intranasal Q12H Rx Instructions: administer into each nostril; approximately 12 hours apart cholecalciferol (vitamin D3) 250 mcg (10,000 unit) capsule 250 mcg PO 1200 trazodone 100 mg tablet 200 mg PO QHS PRN (Reason: Insomnia) acetaminophen 325 mg capsule 650 mg PO Q4H PRN (Reason: pain (scale score 1-3)) loperamide [Anti-Diarrheal (loperamide)] 2 mg tablet 2 mg PO QID PRN (Reason: diarrhea) cephalexin 500 mg Capsule 500 mg PO Q12HR Qty: 10 0RF lorazepam 2 mg tablet 2 mg PO Q12H Qty: 10 0RF carvedilol 12.5 mg tablet 12.5 mg PO Q12H sertraline 100 mg tablet 100 mg PO Q12H ferrous sulfate 325 mg (65 mg iron) Tablet 325 mg PO 1200 ascorbic acid (vitamin C) 1,000 mg Tablet,Chewable 2 g PO 1200 vitamin B complex Tablet,Chewable 2 tablet PO 1200 lamotrigine 200 mg tablet 200 mg PO Q12H oxybutynin chloride 10 mg tablet extended release 24hr 10 mg PO DAILY bupropion HCl 150 mg tablet extended release 24 hr 150 mg PO HS aspirin 81 mg Tablet,Delayed Release (Dr/Ec) 81 mg PO DAILY (DME) Overnight Ox See Rx Instructions .Route .MEDSUPPLY Qty: 1 0RF Rx Instructions: Overnight Oximetry 4 L/Min BIPAP DX Code: G47.33 Length of Need: Lifetime DME:WILIAN FlemingI: [id number] albuterol sulfate 90 mcg/actuation HFA aerosol inhaler 1 - 2 puff inhalation Q4-6H PRN (Reason: shortness of breath or wheezing) Qty: 8.5 2RF hydrochlorothiazide 12.5 mg tablet 12.5 mg PO QAM Qty: 90 1RF pantoprazole 40 mg tablet,delayed release (DR/EC) See Rx Instructions .ROUTE .COMPLEX Qty: 90 1RF Dose Instruction: TAKE 1 TABLET BY MOUTH EVERY DAY IN THE MORNING Rx Instructions: TAKE 1 TABLET BY MOUTH EVERY DAY IN THE MORNING amlodipine 5 mg tablet 5 mg PO HS Qty: 90 0RF Wegovy 1 mg/0.5 mL pen injector 1 mg subcut Q7D Qty: 2 0RF Follow-up/Referrals: Yannick Umanzor, [Primary Care Provider] -
--- OUTSIDE RECORDS SUMMARY | 2025-01-11 02:37 | XMS_ITS | Clinical Summary ---
Author Organization [facility] Address [address] [facility] [place] [address] [place] [address] Phone Care Team Providers Care Tandem Operator Name Role Phone Yannick Umanzor DO Primary [...] 0.03 mg/spray spray, metered, non-aerosol Administer 1 [place] in each nostril 2 times daily. 4 Active Wegovy 0.25 mg/0.5 mL Pen Injector 0.25 mg by See Admin Instructions route every 7 days. 4 Active Active Problems Problem Noted Date Diagnosed Date Monoclonal gammopathy of unknown significance Encounters Date Type Department Care Team Description 01/09/2025 External Device Data ST[facility] ABSTRACTION Provider, Abstract 11/08/2024 External Device Data [facility] ABSTRACTION Provider, [...] on file Legal Sex Female 4:51 AM CLEAN RICE GRADER AND REEL TENDER Gender Identity Not on file Sexual Orientation Not on file Last Filed Vital Signs Vital Sign Reading Time Taken Comments Blood Pressure 126/69 08/02/2024 1:21 PM CLEAN RICE GRADER AND REEL TENDER Pulse 77 08/02/2024 1:21 PM CLEAN RICE GRADER AND REEL TENDER Temperature 36.8 C (98.2 F) 08/02/2024 1:21 PM CLEAN RICE GRADER AND REEL TENDER Respiratory Rate 15 08/02/2024 1:21 PM CLEAN RICE GRADER AND REEL TENDER Oxygen Saturation 94% 08/02/2024 1:2 1 PM CLEAN RICE GRADER AND REEL TENDER Inhaled Oxygen Concentration - - Weight 83.3 kg (183 lb 9.6 oz) 08/02/2024 1:21 PM CLEAN RICE GRADER AND REEL TENDER patient verbally confimed that she is trying to lose weight Height 162.6 cm (5' 4 ) 06/01/2022 8:50 AM CDT Body Mass Index 31.51 06/01/2022 8:50 AM CDT Plan of Treatment Upcoming Encounters Date Type Department Care Team (Late st Contact Info) Description 09/05/2025 10:00 AM CLEAN RICE GRADER AND REEL TENDER Office Visit [facility] Oncology and Hematology - [place] [address] [facility] [address] [place] [address] Saul Perez MD [address] [facility] [address] [place] [address] Health Maintenance Due Date Last [...] 2031 Insurance MEDICARE PART A AND B [facility] B[employer]EF[facility] MEDICARE PART A AND B [facility] B[employer]EFIT PL[facility] Advance Directives For more information, please contact: [phone] * Full Code (Latest Code Status on File) Date Activated Date Inactivated Comments 08/27/2014 7:51 AM 08/28/2014 8:33 AM * Full Code Date Activated Date Inactivated Comments 08/27/2014 5:59 AM 08/27/2014 7:51 AM Care Teams Tandem Operator Relationship Specialty Start Date End Date Yannick Umanzor DO [address] [address] PCP - General Internal Medicine 11/07/21
--- OUTSIDE RECORDS SUMMARY | 2025-01-11 02:37 | XMS_ITS | Continuity of Care Document ---
Author Organization [facility] [place] [address] [place] [address] [place] [address] Phone Care Team Providers Care Customs Entry Clerk Name Role Phone [facility] Unavailable Unavail able Joshua Del Toro Unavailable Unavailable Procedures Procedure Date TF Polycarb Sphcyl [place] To +/-4d .12-2d Vision Svcs Frames Purchases Anti-reflective Coating Prism Lens/es Eye Exam & Treatment Refraction Advance Directives Directive Yes / No Effective Date File Name No Information Encounters Encounter Description Practice Location Reason(s) For Visit Diagnoses Date Provider Providers Copied on Encounter [facility], [address] [place] [address] [address], [place], [place], [id number], [place] tel:[phone] [facility] No Information Dec-2 4200 9 [facility] . [address] [facility], [facility] [address], [place], [id number], [place]. tel:[phone] Referring Provider: Herve Esparza, [address] [place] [address] [address], [place], [address]. tel:[phone] sulting Provider: Joshua Del Toro, [address] [place] [address], [place], [address]. tel:[phone] [facility], [id number] [place] [address] [address], [place], [place], [id number], [place] tel:[phone] [facility] No Information Dec-2 2-200 9 Arteaga NASIM Edgar. [address] [place] [address] Dr, [address], [place], [address], [place]. tel:[phone] Family History Family Member Type Diagnosis Age At Onset No Information Payers Payer name Insurance type Covered green party ID Authoriza tikenji(s) P [id number] Social History Type Description Quantity Date Captured [...]
--- OUTSIDE RECORDS SUMMARY | 2025-01-11 02:38 | XMS_ITS | Clinical Summary ---
Author Organization [facility] Address [address] [place] [address] Care Team Providers Care Aviation Operations Specialist Name Role Phone Megan Cano MD Primary Care Provider [phone] Megan Cano MD Unavailable [phone] Kwame Hathaway MD Unavailable [phone] Source Comments [facility],non-owned Affiliates and Associated Physician Practices is amultiple site organization consisting of ambulatory clinics and hospital sitesin [place], [place], [place] and [place]. This disclosure is being madepursuant to the Care Everywhere program and may not contain all information available regarding this patient. Last updated 18.[facility] Allergies Active Allergy Reactions Criticality Noted Date [...] mouth every 12 hours For eye infection, alf administration Active Eyelid Cleansers (AVENOVA EX) by [...] Comments Blood Pressure 130/78 07/22/2020 12:05 PM PERFORMANCE SPECIALIST Pulse 83 07/22/2020 12:05 PM PERFORMANCE SPECIALIST Temperature 37 C (98.6 F) 07/22/2020 11:07 AM PERFORMANCE SPECIALIST Respiratory Rate 22 07/22/2020 12:05 PM PERFORMANCE SPECIALIST Oxygen Saturation 94% 07/22/2020 12:26 PM PERFORMANCE SPECIALIST Inhaled Oxygen Concentration 50% 2017 1 0:20 AM CDT Weight 124.7 kg (275 lb) 07/22/2020 10:58 AM PERFORMANCE SPECIALIST Height 162.6 cm (5' 4 ) 07/22/2020 10:58 AM PERFORMANCE SPECIALIST Body Mass Index 47.2 07/22/2020 10:58 AM PERFORMANCE SPECIALIST Plan of Treatment Health Maintenance Due Date [...] this topic Medical Devices Implanted Type Area Tanning Consultant Device Identifier Shelf Expiration Date Model / Serial / Lot Sys Ureth Supp Obtryx Midurethral Trnstr Implanted:Qty: 1 on 2017 by Kwame Hathaway MD at [facility] [employer] 01/11/2020 [id number] / / [id number] Graft Tissue Xenform Ftl Bvn Drml Mtrx 7 Implanted:Qty: 1 on 2017 by Kwame Hathaway MD at [facility] [employer] 08/22/2019 [id number] / / [id number] Procedures Procedure Name Priority Date/Time Associated Diagnosis Comments ENDOSCOPY, COLON, SCREENING Routine 07/22/2020 10:36 AM PERFORMANCE SPECIALIST from Last 3 Months or Most Recently Relevant to Health Maintenance Results * ENDOSCOPY, COLON, SCREENING (07/22/2020 10:36 AM PERFORMANCE SPECIALIST) Report Endoscopy POC _ Patient Name: Leydi [...] for surveillance. Procedure Code(s): --- Professional --- 42244, Colonoscopy, flexible; with removal of tumor(s), polyp(s), or other lesion(s) by snare technique 61562, Colonoscopy, flexible; with directed submucosal injection(s), any substance 18690, 59, Colonoscopy, flexible; with biopsy, single or multiple --- Technical --- 79876, Colonoscopy, flexible; with removal of tumor(s), polyp(s), or other lesion(s) by snare technique 97863, Colonoscopy, flexible; with directed submucosal injection(s), any substance 24894, 59, Colonoscopy, flexible; with biopsy, single or [...] neoplasm of digestive organs CPT copyright 2017 [employer]. All rights reserved. The codes documented in this report are preliminary and upon toolroom helper review may be revised to meet current compliance requirements. Damien Green MD 07/22/2020 12:00:12 PM This report has been signed electronically. Number of Addenda: 0 Note Initiated On: 07/22/2020 10:36 AM [facility] ENDOSCOPY 07/22/2020 10:3 6 AM PERFORMANCE SPECIALIST us Damien Green MD GI PROCEDURE ORDERABLES Edited Result - Final [facility] ENDOSCOPY from Last 3 Months or Most Recently Relevant to Health Maintenance Insurance [employer] MEDICARE Advance Directives * Full Code (Latest Code Status on File) Date Activated Date Inactivated Comments 2017 12:04 PM 04/08/2017 5:39 PM Care Teams Aviation Operations Specialist Relationship Specialty Start Date End Date Megan Cano MD [address] [place] [address] PCP - General Internal Medicine 02/26/17 Megan Cano MD [address] [place] [address] 02/26/17 Kwame Hathaway MD [address] [facility] [address] [place] [address] Stock House Worker Obstetrics and Gynecology 05/20/17
--- OUTSIDE RECORDS SUMMARY | 2025-01-11 02:38 | XMS_ITS | Patient Health Record ---
Author Organization [facility] Address [address] [facility] [address] [place], [place] [address] Care Team Providers Care Family Day Carer Name Role Phone DEE CAMACHO Unavailable [phone] Yannick Umanzor Unavailable Unavailable Allergies No Known Allergies Reason For Referral No Information Immunizations Vaccine Route Administration Date Status Comme nts Pneumococcal conjugate PCV 13 Unknown 11/02/2024 Refuse d Influenza, high dose seasonal Unknown 11/02/2024 Refuse d Vital Signs Height-cm 162.56 cm 11/02/2024 Weight-kg 136.08 kg 11/02/2024 Height 64.00 in 11/02/2024 Weight 300 lbs 11/02/2024 BMI 51.49 kg/m2 11/02/2024 Encounters Encounter Location Date Provider Diagnosis [facility] [place] [address] [place] [id number] 01/14/2024 DEE CAMACHO Fungal infection of nail B35.1 ; Pain in right toe(s) M79.674 ; Pain in left toe(s) M79.675 and Unspecified atherosclerosis of coquille arteries of extremities, bilateral legs I70.203 [facility] [place] [address] [place], [place] [id number] 03/30/2024 DEE CAMACHO Fungal infection of nail B35.1 ; Pain in right toe(s) M79.674 ; Pain in left toe(s) M79.675 and Unspecified atherosclerosis of coquille arteries of extremities, bilateral legs I70.203 [facility] [place] [address] [place], [place] [id number] 06/01/2024 DEE CAMACHO 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, bilateral legs I70.213 ; Onychomycosis B35.1 ; Pain in right toe(s) M79.674 and Pain in left toe(s) M79.675 [facility] [place] [address] [place] [id number] 08/03/2024 DEE CAMACHO 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, bilateral legs I70.213 ; Onychomycosis B35.1 ; Pain in right toe(s) M79.674 and Pain in left toe(s) M79.675 [facility] [place] [address] [place] [id number] 11/02/2024 DEE CAMACHO 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, bilateral legs I70.213 ; Onychomycosis B35.1 ; Pain in right toe(s) M79.674 and Pain in left toe(s) M79.675 Assessments Encounter Date Diagnosis (ICD Code) Assessment Notes Treatment Notes Treatment Clinical Notes Section Notes 01/14/2024 Fungal infection of nail (ICD-10 - B35.1) 03/30/2024 Fungal infection of nail (ICD-10 - B35.1) 06/01/2024 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, bilateral legs (ICD-10 - I70.213) 06/01/2024 Onychomycosis (ICD-10 - B35.1) Nails 1-5 Bilateral were debrided extensively with nail nippers and emery board, reducing length and girth to pink healthy tissue with any subungual debris and necrotic tissue removed 08/03/2024 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, bilateral legs (ICD-10 - I70.213) 11/02/2024 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, bilateral [...] (ICD-10 - M79.675) 03/30/2024 Unspecified atherosclerosis of coquille arteries of extremities, bilateral legs (ICD-10 - I70.203) 01/14/2024 Unspecified atherosclerosis of coquille arteries of extremities, bilateral legs (ICD-10 - [...] and necrotic tissue removed Plan Of Treatment No Information Insurance Providers Payer Name Payer Address Payer Phone Subscriber Number Group Number Insured Name Patient Relationship to Insured Coverage Start Date Coverage End Date [facility] [address] [place], [place] [id number] VALE ARANDA Self - patient is the insured Medicare Part B [place] [address] [place] [address] [id number] VALE PFEIFFER Self - patient is the insured Medical (General) History Medical History History ICD Code acid reflux artificial joint fibromyalgia GERD Respiratory disease Sleep apnea Back Trouble Psychiatric Disorder hypertension Surgical History Surgery Date(Month/Year) Brain surgery Right foot surgery Right wrist surgery Bladder surgery
--- OUTSIDE RECORDS SUMMARY | 2025-01-11 02:38 | XMS_ITS | Encounter Summary ---
Author Organization [facility] Address [address] [place] [address] Care Team Providers Care Banking Analyst Name Role Phone JaviersvetlanaYannick talleyian Primary Care Provider Encounter Details Date Type Department Care Team (Late st Contact Info) Description 07/30/2005 Outpatient Historical [facility] Nikolas Bowie Jr., MD [facility] [place] [address] Er, Authorized P NO ADDRESS ON FILE UNSPECIFIED VIRAL INFECTION (Primary Dx) Social History Tobacco Use Types Packs/Day Years Used Date Smoking Tobacco: Never Assessed Comments Unknown Sex and Gender Information Value Date Recorded Sex Assigned at Not on file Legal Sex Female 4:51 AM PLYWOOD MATCHER Gender Identity Not on file Sexual Orientation Not on file documented as of this encounter Plan of Treatment Upcoming Encounters Date Type Department Care Team (Late st Contact Info) Description 09/05/2025 10:00 AM PLYWOOD MATCHER Office Visit [facility] Oncology and Hematology - [place] [address] [facility] [address] [place] [address] Saul Perez MD [address] [facility] [address] [place] [address] documented as of this encounter Procedures Procedure Name Priority Date/Time Associated Diagnosis Comments CBC WITH DIFFERENTIAL Routine 07/30/2005 4:06 PM PLYWOOD MATCHER CBC WITH DIFFERENTIAL Routine 07/30/2005 4:06 PM PLYWOOD MATCHER documented in this encounter Results * (ABNORMAL) CBC WITH DIFFERENTIAL (07/30/2005 4:06 PM PLYWOOD MATCHER) Pathologist [facility] NEUTROPHILS 83(H) 45 - 70 % INTERFAC [...] 0.20 K/uL INTERFACE SYSTEM 07/30/2005 4:06 PM PLYWOOD MATCHER Historical Provider HEMATOLOGY ORDERABLES Final Result INTERFACE SYSTEM Refer to clinic/hospital department * (ABNORMAL) CBC WITH DIFFERENTIAL (07/30/2005 4:06 PM PLYWOOD MATCHER) Pathologist [facility] WBC 12.9(H) 4.0 - 9.8 K/uL INTERFACE [...] 12.4 fL INTERFACE SYSTEM 07/30/2005 4:06 PM PLYWOOD MATCHER us Historical Provider HEMATOLOGY ORDERABLES Final Result INTERFACE SYSTEM Refer to clinic/hospital department documented in this encounter Visit Diagnoses Diagnosis Unspecified viral infection, in conditions classified elsewhere and of unspecified site- Primary documented in this encounter Care Teams Banking Analyst Relationship Specialty Start Date End Date Yannick Umanzor DO [address] [facility] [address] [place] [address] PCP - General Internal Medicine 11/07/21 documented as of this encounter
--- OUTSIDE RECORDS SUMMARY | 2025-01-11 02:38 | XMS_ITS | Clinical Summary ---
Author Organization [facility] [address] Address [address] [place] [address] Care Team Providers Care Dealership Manager Name Role Phone Yannick Umanzor DO Primary Care Provider [phone] Allergies Active Allergy Reactions Criticality Noted Date [...] on file Legal Sex Female 1:37 AM SUPERVISOR ELECTRIC MOTOR TESTING Gender Identity Female 01/02/2024 7:43 PM CDT Sexual Orientation Straight 01/02/2024 7: 43 PM CDT Obstetrics History Last Filed Vital Signs Vital Sign Reading Time Taken Comments Blood Pressure 142/60 12/31/2023 2:20 PM CDT Pulse 70 12/31/2023 2:20 PM CDT Temperature 36.4 C (97.6 F) 10/18/2020 9:01 AM SUPERVISOR ELECTRIC MOTOR TESTING Respiratory Rate 20 10/18/2020 9:01 AM SUPERVISOR ELECTRIC MOTOR TESTING Oxygen Saturation 95% 12/03/2023 1:24 PM CDT [...] SCREENING MAMMOGRAM Routine 09/25/2013 1 0:31 AM SUPERVISOR ELECTRIC MOTOR TESTING from Last 3 Months or Most Recently Relevant to Health Maintenance Results * Screening Mammogram (09/25/2013 10:31 AM SUPERVISOR ELECTRIC MOTOR TESTING) Anatomical Region Laterality Modality Breast N/A Mammography 09/25/2013 10:3 1 AM SUPERVISOR ELECTRIC MOTOR TESTING Narrative 09/29/2013 8:47 AM SUPERVISOR ELECTRIC MOTOR TESTING SONNY ABDI M.D. FINAL REPORT ACC# Date Time Exam [id number] Sep 25, 2013 10:31:00 BMV [id number] [place] Screening Mamm Technologist(s): Vale Curran; ; EXAMINATION: Mammogram Technique: Bilateral Full-Field Digital Screening Mammogram was performed. Views obtained: bilateral craniocaudal and bilateral mediolateral oblique. Computer Aided Detection was performed with Comr.se.3 version 9.3. Mammogram Findings: The present examination has been compared to a prior imaging study performed at [facility] on 09/23/2012. There are [...] M.D. FINAL REPORT ACC# Date Time Exam [id number] Sep 25, 2013 10:31:00 BMV [id number] [place] Screening Mamm Technologist(s): Vale Curran; ; EXAMINATION: Mammogram Technique: Bilateral Full-Field Digital Screening Mammogram was performed. Views obtained: bilateral craniocaudal and bilateral mediolateral oblique. Computer Aided Detection was performed with NeurOp 1.3 version 9.3. Mammogram Findings: The present examination has been compared to a prior imaging study performed at [facility] on09/23/2012. There are scattered [...] Most Recently Relevant to Health Maintenance Insurance [facility] Member Subscriber Plan / Payer ( fective 2010-Present) Name:Leydi Su Member ID:[id number] Relation to Subscriber:Self Name:Leydi Su Subscriber ID:[id number] Payer ID:[id number] Type:SendUs/Welcare Address: [address] MEDICARE [facility] [address] [facility] [id number] MEDICARE MEDICARE [facility] [id number] Care Teams Dealership Manager Relationship Specialty Start Date End Date Yannick Umanzor DO PCP - General Internal Medicine 10/18/20
--- OUTSIDE RECORDS SUMMARY | 2025-01-11 02:38 | XMS_ITS | CONTINUITY OF CARE DOCUMENT ---
Author Name josh moreno Address Unknown Organization [facility] Address [address] [facility] [address] [place] [address] Phone [phone] Care Team Providers Care Manager Respiratory Care Name Role Phone Tyrese APPIAH, Eloisa Unavailable INSURANCE PROVIDERS Payer name Policy type / Coverage type Eamon red libertarian [place] MEDICARE [place] Medicare [id number] [employer] OPEN ACCESS Other [id number]
--- OUTSIDE RECORDS SUMMARY | 2025-01-11 02:38 | XMS_ITS ---
Author Organization [facility] Address [address] [facility] [address] [place], [place] [id number] Care Team Providers Care Site Specialist Name Role Phone DEE GEE Unavailable [phone] Yannick Umanzor Unavailable Unavailable REASON FOR VISIT *General care Encounters Encounter Location Date Provider Diagnosis [facility] [place] [address] [place], [place] [id number] 01/04/2025 DEE GEE Plan Of Treatment No Information Progress Notes * VALE PFEIFFERDOB:1955 (69 yo F)Acc No.[id number]:01/04/2025 Patient: Get PEÑAVALE Provider: Melisa Gee DPM :1955 A ge:69 Y S ex:Female Date:01/04/2025 Address:[address] [place], [place] [address] Subjective: * Chief Complaints: * 1 . *General care. * Medical History: Objective: * Vitals: Assessment: Plan: * Treatment: * Billing Information: * Visit Code: * Procedure Codes: * Electronic signature of DEE GEE DPM on 01/11/2025 at 02:38 AM CDT Sign off status: Pending * Provider: Melisa Gee DPM Date: 01/04/2025 Generated for Printi ng/Faxing/eTransmitting on: 01/11/2025 02:38 AM CDT
--- OUTSIDE RECORDS SUMMARY | 2025-01-11 02:38 | XMS_ITS | Encounter Summary ---
Author Organization [facility] Address [address] [place] [address] Care Team Providers Care Lithographic Proofer Apprentice Name Role Phone Yannick Umanzor DO Primary Care Provider Encounter Details Date Type Department Care Team (Late st Contact Info) Description 01/09/2025 External Device Data [facility] ABSTRACTION Provider, Abstract NO ADDRESS ON FILE Social History Tobacco Use Types Packs/Day Years Used Date Smoking Tobacco: Former Cigarettes 1 40 Alcohol Use Standard Drinks/Week Comments No 0 (1 standard drink = 0.6 oz pur e alcohol) Comments No Sex and Gender Information Value Date Recorded Sex Assigned at Not on file Legal Sex Female 4:51 AM TAPER MACHINE Gender Identity Not on file Sexual Orientation Not on file documented as of this encounter Plan of Treatment Upcoming Encounters Date Type Department Care Team (Late st Contact Info) Description 09/05/2025 10:00 AM TAPER MACHINE Office Visit [facility] Oncology and Hematology - [place] [address] [place] [address] Saul Perez MD [address] [facility] [address] [place] [address] documented as of this encounter Visit Diagnoses Not on filedocumented in this encounter Care Teams Lithographic Proofer Apprentice Relationship Specialty Start Date End Date Yannick Umanzor DO [address] [facility] [address] [place] [address] PCP - General Internal Medicine 11/07/21 documented as of this encounter
--- OUTSIDE RECORDS SUMMARY | 2025-01-11 02:38 | XMS_ITS | Encounter Summary ---
Author Organization [facility] Address [address] [place] [address] Phone Care Team Providers Care Home Health Rn Name Role Phone Unavailable Primary Care Provider Unavailabl e Encounter Details Date Type Department Care Team (Late st Contact Info) Description 11/11/[address] [facility] Services [address] [place] [address] Nikolas Arnett DO 1 [place] [address] Anemia, unspecified Social History Tobacco Use Types [...] - 12.00 10(3)/mcL 11/11/2024 10:30 AM CDT [facility] RBC 4.49 3.80 - 5.30 10(6)/[facility] 11/11/2024 10:30 AM CDT [facility] HEMOGLOBIN (HGB) 14.4 12.0 - 15.8 g/dL 11/11/2024 10:30 AM CDT [facility] HEMATOCRIT (HCT) 43.5 36.0 - 47.0 % 11/11/2024 10:30 AM CDT [facility] MCV 96.9(H) 82.0 - 96.0 fL 11/11/2024 10:30 AM CDT [facility] MCH 32.1 26.0 - 34.0 pg 11/11/2024 10:30 AM CDT [facility] MCHC 33.1 31.0 - 36.0 g/dL 11/11/2024 10:30 AM CDT [facility] PLATELET COUNT 272 140 - 440 10(3)/[facility] 11/11/2024 10:30 AM CDT [facility] RDW 13.6 11.8 - 15.5 % 11/11/2024 10:30 AM CDT [facility] MPV 9.5(L) 9.7 - 12.4 fL 11/11/2024 10:30 AM CDT [facility] NEUTROPHILS 69.4 47.0 - 73.0 % 11/11/2024 10:30 AM CDT [facility] LYMPHOCYTES 18.4 18.0 - 42.0 % 11/11/2024 10:30 AM CDT [facility] MONOCYTES 9.9 4.0 - 12.0 % 11/11/2024 10:30 AM CDT [facility] EOSINOPHILS 1.7 0.0 - 5.0 % 11/11/2024 10:30 AM CDT [facility] BASOPHILS 0.6 0.0 - 1.0 % 11/11/2024 10:30 AM CDT [facility] ABSOLUTE NEUTROPHILS 7.54 1.60 - 7.70 10(3)/mcL 11/11/2024 10:30 AM CDT [facility] ABSOLUTE LYMPHOCYTES 1.99 1.30 - 3.20 10(3)/[facility] 11/11/2024 10:30 AM CDT [facility] ABSOLUTE MONOCYTES 1.07(H) 0.20 - 1.00 10(3)/[facility] 11/11/2024 10:30 AM CDT [facility] ABSOLUTE EOSINOPHIL 0.18 0.00 - 0.40 10(3)/[facility] 11/11/2024 10:30 AM CDT [facility] ABSOLUTE BASOPHILS 0.06 0.00 - 0.10 10(3)/[facility] 11/11/2024 10:30 AM CDT [facility] NRBC PER 100 WBC 0 11/12/19 10:30 AM CDT [facility] Blood No Phlebotomy Charged / Unknown 11/11/2024 8:30 AM CDT 11/11/2024 10:17 AM CDT Nikolas Arnett DO HEMATOLOGY ORDERABLES Final Resu lt [facility] [address] [place] [address] * (ABNORMAL) CMP (COMPREHENSIVE METABOLIC PANEL) (11/11/2024 8:30 AM CDT) SODIUM 141 136 - 145 mmol/L 11/11/2024 11:03 AM CDT [facility] POTASSIUM 2.8(L) 3.5 - 5.1 mmol/L 11/11/2024 11:03 AM CDT [facility] CHLORIDE 102 98 - 107 mmol/L 11/11/2024 11:03 AM CDT [facility] CO2, VENOUS 24 22 - 30 mmol/L 11/11/2024 11:03 AM CDT [facility] ANION GAP 17.8 <18.0 mmol/L 11/11/2024 11:03 AM CDT [facility] GLUCOSE 98 70 - 99 mg/dL 11/11/2024 11:03 AM [facility] BUN 15 10 - 20 mg/dL 11/11/2024 11:03 AM [facility] CREATININE, BLOOD 1.39(H) 0.60 - 1.00 mg/dL 11/11/2024 11:03 AM [facility] BUN/CREATININE RATIO 11(L) 12 - 20 ratio 11/11/2024 11:03 AM [facility] TOTAL PROTEIN 6.5 6.0 - 8.0 g/dL 11/11/2024 11:03 AM [facility] ALBUMIN 3.5 3.5 - 5.0 g/dL 11/11/2024 11:03 AM [facility] A/G RATIO 1.2 1.0 - 2.2 11/11/2024 11:03 AM [facility] CALCIUM 9.0 8.7 - 10.5 mg/dL 11/11/2024 11:03 AM [facility] T BILI 0.9 0.2 - 1.2 mg/dL 11/11/2024 11:03 AM [facility] SGOT (AST) 68(H) <43 U/L 11/11/2024 11:03 AM [facility] SGPT (ALT) 27 <56 U/L 11/11/2024 11:03 AM [facility] ALKALINE PHOSPHATASE 55 40 - 150 U/L 11/11/2024 11:03 AM [facility] GFR, ESTIMATED 41(L) >=60 11/11/2024 11:03 AM [facility] Comment: Creatinine Clearance is the preferred criteria for selecting drug dose adjustments in renally impaired patients. The GFR is provided as additional pertinent clinical information. GFR is reported in mL/min/1.73 sq m. Calculation based on the Chronic Kidney Disease Epidemiology Collaboration (CKD- EPI) equation refit without adjustment for race. GFR, EST. 46(L) >=60 025 11:03 AM [facility] GFR, EST. NONAFRICAN 38(L) >=60 11/11/2024 11:03 AM CDT [facility] Blood No Phlebotomy Charged / Unknown 11/11/2024 8:30 AM CDT 11/11/2024 10:17 AM CDT us Nikolas Arnett DO CHEMISTRY ORDERABLES Final Resul t [facility] [address] [place] [address] documented in this encounter Visit Diagnoses Diagnosis Anemia, unspecified documented in this encounter
--- OUTSIDE RECORDS SUMMARY | 2025-01-11 02:38 | XMS_ITS | Clinical Summary ---
Author Organization [facility] Address [address] [place] [address] Phone Care Team Providers Care Mud Mixer Operator Name Role Phone JavierYannick price Primary Care Provider [phone] Allergies Active Allergy Reactions Criticality Noted Date [...] Act haris ergocalciferol (VITAMIN D-2) 1.25 MG (71768 UT) capsule 12/12/2019 Active Carbonyl Iron 45 [...] 2006 Influenza Vaccine (Season Ended) 2025 Insurance 10sec MEDICARE Care Teams Mud Mixer Operator Relationship Specialty Start Date End Date Yannick Umanzor DO [address] [place] [address] PCP - General Internal Medicine 01/27/21
--- OUTSIDE RECORDS SUMMARY | 2025-01-11 02:38 | XMS_ITS | Continuity of Care Document ---
Author Organization [facility] Address [address] [place] [address] Phone Care Team Providers Care Lotus Notes Developer Name Role Phone Tracy Quiroz Unavailable Unavailab [...] Endo Mucosal Resection COLONOSCOPY AND BIOPSY OFFICE [id number] Advance Directives Directive Yes / No Effective Date File Name No Information Encounters Encounter Description Practice Location Reason(s) For Visit Diagnoses Date Provider Providers Copied on Encounter [facility], [address], [place], [place], [id number] , tel: [phone] [facility] No Information 1 Allan Molina. [address] [place], [place], [id number] , [place]. tel: [phone] [facility], [address], [place], [place], [address] , [place] tel: [phone] [facility] No Information 1 Allan Molina. [address] [place], [place], [id number] , . tel: [phone] [facility], [address], [place], [place], [address] , [place] tel: [phone] [facility] Out[facility] No Information 0 Petershashi Worthingtony. [address] [facility], [place], [place], [id number] , [place]. tel: [phone] Referring Provider: Megan Mcwilliams, [address], [place], [address]. [phone] OFFICE [facility], [address], [place], [place], [address] , tel: [phone] [facility] GERD (chief complaint) Gastroesophageal reflux disease without esophagitisFamily history of colon cancer in father 0 Allan Molina. [address] [place], [place], [address] , [place]. tel: [phone] Referring Provider: Megan Mcwilliams, [address], [place], [address]. [phone] Family History Family Member Type Diagnosis Age At Onset No Information Payers Payer name Insurance type Covered green party ID Authoriza tion(s) [facility] [id number] Social History Type Description Quantity Date Captured [...]
--- OUTSIDE RECORDS SUMMARY | 2025-01-11 02:38 | XMS_ITS | Clinical Summary ---
Author Organization [facility] Care Team Providers Care Nca Certified Concierge Name Role Phone Unavailable Primary Care Provider Unavailabl e Encounters Date Type Department Care Team Description 11/11/2024 Lab Requisition [facility] [address] [place] [address] Nikolas Arnett DO Anemia, unspecified [...] - 12.00 10(3)/mcL 11/11/2024 10:30 AM CDT [facility] RBC 4.49 3.80 - 5.30 10(6)/mcL 11/11/2024 10:30 AM CDT [facility] HEMOGLOBIN (HGB) 14.4 12.0 - 15.8 g/dL 11/11/2024 10:30 AM CDT [facility] HEMATOCRIT (HCT) 43.5 36.0 - 47.0 % 11/11/2024 10:30 AM CDT [facility] MCV 96.9(H) 82.0 - 96.0 fL 11/11/2024 10:30 AM CDT [facility] MCH 32.1 26.0 - 34.0 pg 11/11/2024 10:30 AM CDT [facility] MCHC 33.1 31.0 - 36.0 g/dL 11/11/2024 10:30 AM CDT [facility] PLATELET COUNT 272 140 - 440 10(3)/[facility] 11/11/2024 10:30 AM CDT [facility] RDW 13.6 11.8 - 15.5 % 11/11/2024 10:30 AM CDT [facility] MPV 9.5(L) 9.7 - 12.4 fL 11/11/2024 10:30 AM CDT [facility] NEUTROPHILS 69.4 47.0 - 73.0 % 11/11/2024 10:30 AM CDT [facility] LYMPHOCYTES 18.4 18.0 - 42.0 % 11/11/2024 10:30 AM CDT [facility] MONOCYTES 9.9 4.0 - 12.0 % 11/11/2024 10:30 AM CDT [facility] EOSINOPHILS 1.7 0.0 - 5.0 % 11/11/2024 10:30 AM CDT [facility] BASOPHILS 0.6 0.0 - 1.0 % 11/11/2024 10:30 AM CDT [facility] ABSOLUTE NEUTROPHILS 7.54 1.60 - 7.70 10(3)/mcL 11/11/2024 10:30 AM CDT [facility] ABSOLUTE LYMPHOCYTES 1.99 1.30 - 3.20 10(3)/mcL 11/11/2024 10:30 AM CDT [facility] ABSOLUTE MONOCYTES 1.07(H) 0.20 - 1.00 10(3)/mcL 11/11/2024 10:30 AM CDT [facility] ABSOLUTE EOSINOPHIL 0.18 0.00 - 0.40 10(3)/mcL 11/11/2024 10:30 AM CDT [facility] ABSOLUTE BASOPHILS 0.06 0.00 - 0.10 10(3)/mcL 11/11/2024 10:30 AM CDT [facility] NRBC PER 100 WBC 0 11/12/19 10:30 AM CDT [facility] Blood No Phlebotomy Charged / Unknown 11/11/2024 8:30 AM CDT 11/11/2024 10:17 AM CDT Nikolas Arnett DO HEMATOLOGY ORDERABLES Final Resu lt [facility] [address] [place] [address] * (ABNORMAL) CMP (COMPREHENSIVE METABOLIC PANEL) (11/11/2024 8:30 AM CDT) SODIUM 141 136 - 145 mmol/L 11/11/2024 11:03 AM CDT [facility] POTASSIUM 2.8(L) 3.5 - 5.1 mmol/L 11/11/2024 11:03 AM CDT [facility] CHLORIDE 102 98 - 107 mmol/L 11/11/2024 11:03 AM CDT [facility] CO2, VENOUS 24 22 - 30 mmol/L 11/11/2024 11:03 AM CDT [facility] ANION GAP 17.8 <18.0 mmol/L 11/11/2024 11:03 AM CDT [facility] GLUCOSE 98 70 - 99 mg/dL 11/11/2024 11:03 AM CDT [facility] BUN 15 10 - 20 mg/dL 11/11/2024 11:03 AM CDT [facility] CREATININE, BLOOD 1.39(H) 0.60 - 1.00 mg/dL 11/11/2024 11:03 AM CDT [facility] BUN/CREATININE RATIO 11(L) 12 - 20 ratio 11/11/2024 11:03 AM T [facility] TOTAL PROTEIN 6.5 6.0 - 8.0 g/dL 11/11/2024 11:03 AM [facility] ALBUMIN 3.5 3.5 - 5.0 g/dL 11/11/2024 11:03 AM [facility] A/G RATIO 1.2 1.0 - 2.2 11/11/2024 11:03 AM [facility] CALCIUM 9.0 8.7 - 10.5 mg/dL 11/11/2024 11:03 AM [facility] T BILI 0.9 0.2 - 1.2 mg/dL 11/11/2024 11:03 AM [facility] SGOT (AST) 68(H) <43 U/L 11/11/2024 11:03 AM [facility] SGPT (ALT) 27 <56 U/L 11/11/2024 11:03 AM [facility] ALKALINE PHOSPHATASE 55 40 - 150 U/L 11/11/2024 11:03 AM [facility] GFR, ESTIMATED 41(L) >=60 11/11/2024 11:03 AM [facility] Comment: Creatinine Clearance is the preferred criteria for selecting drug dose adjustments in renally impaired patients. The GFR is provided as additional pertinent clinical information. GFR is reported in mL/min/1.73 sq m. Calculation based on the Chronic Kidney Disease Epidemiology Collaboration (CKD- EPI) equation refit without adjustment for race. GFR, EST. 46(L) >=60 025 11:03 AM [facility] GFR, EST. NONAFRICAN 38(L) >=60 11/11/2024 11:03 AM [facility] Blood No Phlebotomy Charged / Unknown 11/11/2024 8:30 AM T 11/11/2024 10:17 AM CDT us Nikolas Arnett DO CHEMISTRY ORDERABLES Final Resul t [facility] [address] [place] [address] from Last 3 Months
--- OUTSIDE RECORDS SUMMARY | 2025-01-11 02:38 | XMS_ITS | Referral Summary ---
Author Organization [facility] [address] Address [address] [place] [address] Care Team Providers Care Dust Collector Ore Crushing Name Role Phone Yannick Umanzor DO Primary Care Provider [phone]- [phone] Allergies Active Allergy Reactions Criticality Noted Date [...] on file Legal Sex Female 1:37 AM CORE MEASURES ABSTRACTOR Gender Identity Female 01/02/2024 7:43 PM CDT Sexual Orientation Straight 01/02/2024 7: 43 PM CDT Last Filed Vital Signs Vital Sign Reading Time Taken Comments Blood Pressure 142/60 12/31/2023 2:20 PM CDT Pulse 70 12/31/2023 2:20 PM CDT Temperature 36.4 C (97.6 F) 10/18/2020 9:01 AM CORE MEASURES ABSTRACTOR Respiratory Rate 20 10/18/2020 9:01 AM CORE MEASURES ABSTRACTOR Oxygen Saturation 95% 12/03/2023 1:24 PM CDT Inhaled Oxygen Concentration - - Weight 126.1 kg (278 lb) 12/31/2023 2:20 PM CDT Height 162.6 cm (5' 4 ) 12/31/2023 2:20 PM CDT Body Mass Index 47.72 12/31/2023 2:20 PM CDT Plan of Treatment Not on file Procedures Procedure Name Priority Date/Time Associated Diagnosis Comments SCREENING MAMMOGRAM Routine 09/25/2013 1 0:31 AM CORE MEASURES ABSTRACTOR from Last 3 Months or Most Recently Relevant to Health Maintenance Results * Screening Mammogram (09/25/2013 10:31 AM CORE MEASURES ABSTRACTOR) Anatomical Region Laterality Modality Breast N/A Mammography 09/25/2013 10:3 1 AM CORE MEASURES ABSTRACTOR Narrative 09/29/2013 8:47 AM CORE MEASURES ABSTRACTOR SONNY ABDI M.D. FINAL REPORT ACC# Date Time Exam [id number] Sep 25, 2013 10:31:00 BMV [id number] [place] Screening Mamm Technologist(s): Vale Curran; ; EXAMINATION: Mammogram Technique: Bilateral Full-Field Digital Screening Mammogram was performed. Views obtained: bilateral craniocaudal and bilateral mediolateral oblique. Computer Aided Detection was performed with Kixer 1.3 version 9.3. Mammogram Findings: The present examination has been compared to a prior imaging study performed at [facility] on 09/23/2012. There [...] M.D. FINAL REPORT ACC# Date Time Exam [id number] Sep 25, 2013 10:31:00 BMV [id number] [place] Screening Mamm Technologist(s): Vale Curran; ; EXAMINATION: Mammogram Technique: Bilateral Full-Field Digital Screening Mammogram was performed. Views obtained: bilateral craniocaudal and bilateral mediolateral oblique. Computer Aided Detection was performed with The Old Reader.3 version 9.3. Mammogram Findings: The present examination has been compared to a prior imaging study performed at [facility] on09/23/2012. There are [...] Most Recently Relevant to Health Maintenance Insurance [employer] [facility] Member Subscriber Plan / Payer (Ef fective 2010-Present) Name:Leydi Su Member ID:[id number] Relation to Subscriber:Self Name:Leydi Su Subscriber ID:[id number] Payer ID:[id number] Type:[employer] HMO/PPO Address: [address] [place] [id number] [facility] MEDICARE [facility] [id number] [facility] [address] MEDICARE MEDICARE [facility] [address] Care Teams Dust Collector Ore Crushing Relationship Specialty Start Date End Date Yannick Umanzor DO PCP - General Internal Medicine 10/18/20
[2025-01-11 03:34] VITALS: BP 217/165; PULSE 64; RESP 22; O2SAT 98
--- NOTE | 2025-01-11 04:00 | PC.NURSE ---
This RN spoke with Candy Craven and updated about pt POC and transfer
[2025-01-11 04:50] VITALS: O2SAT 98
[2025-01-11 04:51] VITALS: BP 217/165; PULSE 64; RESP 22; O2SAT 98
[2025-01-11 04:52] VITALS: BP 217/165; PULSE 64; RESP 22; O2SAT 98
== END 2025-01-11 04:58 | disposition short-term general hospital (02) ==
PROVIDERS: Emergency Provider Emergency Medicine; PCP Internal Medicine
DX: S06.5X0A Traumatic subdural hemorrhage without loss of consciousness, initial encounter (principal); S01.01XA Laceration without foreign body of scalp, initial encounter; I12.9 Hypertensive chronic kidney disease with stage 1 through stage 4 chronic kidney disease, or unspecified chronic kidney disease; N18.9 Chronic kidney disease, unspecified; D50.9 Iron deficiency anemia, unspecified; G47.33 Obstructive sleep apnea (adult) (pediatric); K21.9 Gastro-esophageal reflux disease without esophagitis; F41.9 Anxiety disorder, unspecified; F31.9 Bipolar disorder, unspecified; Z98.84 Bariatric surgery status; Z98.1 Arthrodesis status; Z96.652 Presence of left artificial knee joint; Z87.891 Personal history of nicotine dependence; Z90.49 Acquired absence of other specified parts of digestive tract; Z79.82 Long term (current) use of aspirin; Z79.899 Other long term (current) drug therapy; W06.XXXA Fall from bed, initial encounter
CPT/HCPCS: 12002; 70450; 72125; 96365; 99291

== ENCOUNTER 2025-01-22 12:00 | Emergency (ER) | payer OTHER, MEDICARE, SELFPAY ==
[2025-01-22 12:01] VITALS: BP 138/60; PULSE 75; RESP 16; TEMP 36.7; O2SAT 100
--- OUTSIDE RECORDS SUMMARY | 2025-01-22 13:22 | XMS_ITS | Continuity of Care Document ---
Author Organization [employer] Address [address] [place] [address] Phone Care Team Providers Care Manager Motor Name Role Phone Tracy Quiroz Unavailable Unavailab [...] Endo Mucosal Resection COLONOSCOPY AND BIOPSY OFFICE [id number] Advance Directives Directive Yes / No Effective Date File Name No Information Encounters Encounter Description Practice Location Reason(s) For Visit Diagnoses Date Provider Providers Copied on Encounter [facility], [address], [place], [place], [address] , tel: [phone] [facility] No Information 1 Allan Molina. [address] [place], [place], [address] , [place]. tel: [phone] [facility], [address], [place], [place], [address] , [place] tel: [phone] [facility] No Information 1 Allan Molina. [address] [place], [place], [address] , . tel: [phone] [facility], [address], [place], [place], [address] , [place] tel: [phone] [facility] No Information 0 Petershashi Worthingtony. [address] [facility], [place], [place], [address] , [place]. tel: [phone] Referring Provider: Megan Mcwilliams, [address] [facility] [address], [place], [address]. [phone] OFFICE PUAUS-HQV-UE TAILED [facility], [address], [place], [place], [address] , tel: [phone] [facility] GERD (chief complaint) Gastroesophageal reflux disease without esophagitisFamily history of colon cancer in father 0 Allan Molina. [address] [place], [place], [address] , [place]. tel: [phone] Referring Provider: Megan Mcwilliams, [address] [facility] [address], [place], [address]. [phone] Family History Family Member Type Diagnosis Age At Onset No Information Payers Payer name Insurance type Covered green party ID Authoriza tion(s) [facility] [id number] Social History Type Description Quantity Date Captured [...]
--- OUTSIDE RECORDS SUMMARY | 2025-01-22 13:22 | XMS_ITS | Encounter Summary ---
Author Organization [facility] Address [address] [place] [address] Care Team Providers Care Middle School Science Teacher Name Role Phone JaviersvetlanaYannick talleyian Primary Care Provider Encounter Details Date Type Department Care Team (Late st Contact Info) Description 07/30/2005 Outpatient Historical [facility] Nikolas Bowie Jr., [place] [facility] [place] [address] Er, Authorized P NO ADDRESS ON FILE UNSPECIFIED VIRAL INFECTION (Primary Dx) Social History Tobacco Use Types Packs/Day Years Used Date Smoking Tobacco: Never Assessed Comments Unknown Sex and Gender Information Value Date Recorded Sex Assigned at Not on file Legal Sex Female 4:51 AM 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 CONSUMER MARKETER Gender Identity Not on file Sexual Orientation Not on file documented as of this encounter Plan of Treatment Upcoming Encounters Date Type Department Care Team (Late st Contact Info) Description 09/05/2025 10:00 AM PATIENT CONSUMER MARKETER Office Visit [facility] Oncology and Hematology - [place] [address] [facility] [address] [place] [address] Saul Perez MD [address] [facility] [address] [place] [address] documented as of this encounter Procedures Procedure Name Priority Date/Time Associated Diagnosis Comments CBC WITH DIFFERENTIAL Routine 07/30/2005 4:06 PM PATIENT CONSUMER MARKETER CBC WITH DIFFERENTIAL Routine 07/30/2005 4:06 PM PATIENT CONSUMER MARKETER documented in this encounter Results * (ABNORMAL) CBC WITH DIFFERENTIAL (07/30/2005 4:06 PM PATIENT CONSUMER MARKETER) Pathologist [facility] NEUTROPHILS 83(H) 45 - 70 % INTERFAC [...] K/uL INTERFACE SYSTEM 07/30/2005 4:06 PM PATIENT CONSUMER MARKETER Historical Provider HEMATOLOGY ORDERABLES Final Result INTERFACE SYSTEM Refer to clinic/hospital department * (ABNORMAL) CBC WITH DIFFERENTIAL (07/30/2005 4:06 PM PATIENT CONSUMER MARKETER) Pathologist [facility] WBC 12.9(H) 4.0 - 9.8 K/uL INTERFACE [...] fL INTERFACE SYSTEM 07/30/2005 4:06 PM PATIENT CONSUMER MARKETER us Historical Provider HEMATOLOGY ORDERABLES Final Result INTERFACE SYSTEM Refer to clinic/hospital department documented in this encounter Visit Diagnoses Diagnosis Unspecified viral infection, in conditions classified elsewhere and of unspecified site- Primary documented in this encounter Care Teams [employer] Science Teacher Relationship Specialty Start Date End Date Yannick Umanzor DO [address] [facility] [address] [place] [address] PCP - General Internal Medicine 11/07/21 documented as of this encounter
--- OUTSIDE RECORDS SUMMARY | 2025-01-22 13:22 | XMS_ITS | Clinical Summary ---
Author Organization [facility] [address] Address [address] [place] [address] Care Team Providers Care Cutting Machine Tender Decorative Name Role Phone Yannick Umanzor DO Primary Care Provider [phone]- [phone] Allergies Active Allergy Reactions Criticality Noted Date [...] on file Legal Sex Female 1:37 AM AIR BRAKE MAN Gender Identity Female 01/02/2024 7:43 PM CDT Sexual Orientation Straight 01/02/2024 7: 43 PM CDT Obstetrics History Last Filed Vital Signs Vital Sign Reading Time Taken Comments Blood Pressure 142/60 12/31/2023 2:20 PM CDT Pulse 70 12/31/2023 2:20 PM CDT Temperature 36.4 C (97.6 F) 10/18/2020 9:01 AM AIR BRAKE MAN Respiratory Rate 20 10/18/2020 9:01 AM AIR BRAKE MAN Oxygen Saturation 95% 12/03/2023 1:24 PM CDT Inhaled Oxygen Concentration - - Weight 126.1 kg (278 lb) 12/31/2023 2:20 PM CDT Height 162.6 cm (5' 4) 12/31/2023 2:20 PM CDT Body Mass Index [...] SCREENING MAMMOGRAM Routine 09/25/2013 1 0:31 AM AIR BRAKE MAN from Last 3 Months or Most Recently Relevant to Health Maintenance Results * Screening Mammogram (09/25/2013 10:31 AM AIR BRAKE MAN) Anatomical Region Laterality Modality Breast N/A Mammography 09/25/2013 10:3 1 AM AIR BRAKE MAN Narrative 09/29/2013 8:47 AM AIR BRAKE MAN SONNY ABDI M.D. FINAL REPORT ACC# Date Time Exam [id number] Sep 25, 2013 10:31:00 BMV [id number] [place] Screening Mamm Technologist(s): Vale Curran; ; EXAMINATION: Mammogram Technique: Bilateral Full-Field Digital Screening Mammogram was performed. Views obtained: bilateral craniocaudal and bilateral mediolateral oblique. Computer Aided Detection was performed with GRUZOBZOR.3 version 9.3. Mammogram Findings: The present examination has been compared to a prior imaging study performed at [facility] on 09/23/2012. [...] M.D. FINAL REPORT ACC# Date Time Exam [id number] Sep 25, 2013 10:31:00 BMV [id number] [place] Screening Mamm Technologist(s): Vale Curran; ; EXAMINATION: Mammogram Technique: Bilateral Full-Field Digital Screening Mammogram was performed. Views obtained: bilateral craniocaudal and bilateral mediolateral oblique. Computer Aided Detection was performed with OptiWi-fi 1.3 version 9.3. Mammogram Findings: The present examination has been compared to a prior imaging study performed at [facility] on09/23/2012. There [...] Most Recently Relevant to Health Maintenance Insurance [facility] Member Subscriber Plan / Payer ( fective 2010-Present) Name:Leydi Su Member ID:[id number] Relation to Subscriber:Self Name:Leydi Su Subscriber ID:[id number] Payer ID:[id number] Type:[employer] Address: [address] MEDICARE [facility] [id number] [facility] [id number] MEDICARE MEDICARE [facility] [id number] Care Teams Cutting Machine Tender Decorative Relationship Specialty Start Date End Date Yannick Umanzor DO PCP - General Internal Medicine 10/18/20
--- OUTSIDE RECORDS SUMMARY | 2025-01-22 13:22 | XMS_ITS | Continuity of Care Document ---
Author Organization [facility] Address [address] [place] [address] [place] [address] Phone Care Team Providers Care Cultural Centre Manager Name Role Phone [facility] Unavailable Unavail able Joshua Del Toro Unavailable Unavailable Procedures Procedure Date TF Polycarb Sphcyl [place] To +/-4d .12-2d [facility] Svcs Frames Purchases Anti-reflective Coating Prism Lens/es Eye Exam & Treatment Refraction Advance Directives Directive Yes / No Effective Date File Name No Information Encounters Encounter Description Practice Location Reason(s) For Visit Diagnoses Date Provider Providers Copied on Encounter [facility], [address] [place] [address] [address], [place], [place], [address], [place] tel:[phone] SEC [facility] No Information Jul-2 4200 9 [facility] . [address] [facility], [facility] [address], [place], [address], [place]. tel:[phone] Referring Provider: Herve Esparza, [address] [place] [address] [address], [place], [address]. tel:[phone] sulting Provider: Joshua Del Toro, [address] [place] [address], [place], [address]. tel:[phone] [facility], [address] [place] [address] [address], [place], [place], [address], [place] tel:[phone] SEC [facility] No Information Dec-2 2200 [address] NASIM Edgar. [address] [place] [address] Dr, [address], [place], [address], [place]. tel:[phone] Family History Family Member Type Diagnosis Age At Onset No Information Payers Payer name Insurance type Covered republican ID Authoriza tikenji(s) P [id number] Social History Type Description Quantity Date Captured [...]
--- OUTSIDE RECORDS SUMMARY | 2025-01-22 13:22 | XMS_ITS | Referral Summary ---
Author Organization [facility] [address] Address [address] [place] [address] Care Team Providers Care Senior Qualitative Researcher Name Role Phone Yannick Umanzor DO Primary Care Provider +1- [phone] Allergies Active Allergy Reactions Criticality Noted Date [...] on file Legal Sex Female 1:37 AM PHYSICIAN/OPHTHALMOLOGIST Gender Identity Female 01/02/2024 7:43 PM CDT Sexual Orientation Straight 01/02/2024 7: 43 PM CDT Last Filed Vital Signs Vital Sign Reading Time Taken Comments Blood Pressure 142/60 12/31/2023 2:20 PM CDT Pulse 70 12/31/2023 2:20 PM CDT Temperature 36.4 C (97.6 F) 10/18/2020 9:01 AM PHYSICIAN/OPHTHALMOLOGIST Respiratory Rate 20 10/18/2020 9:01 AM PHYSICIAN/OPHTHALMOLOGIST Oxygen Saturation 95% 12/03/2023 1:24 PM CDT Inhaled Oxygen Concentration - - Weight 126.1 kg (278 lb) 12/31/2023 2:20 PM CDT Height 162.6 cm (5' 4) 12/31/2023 2:20 PM CDT Body Mass Index 47.72 12/31/2023 2:20 PM CDT Plan of Treatment Not on file Procedures Procedure Name Priority Date/Time Associated Diagnosis Comments SCREENING MAMMOGRAM Routine 09/25/2013 1 0:31 AM PHYSICIAN/OPHTHALMOLOGIST from Last 3 Months or Most Recently Relevant to Health Maintenance Results * Screening Mammogram (09/25/2013 10:31 AM PHYSICIAN/OPHTHALMOLOGIST) Anatomical Region Laterality Modality Breast N/A Mammography 09/25/2013 10:3 1 AM PHYSICIAN/OPHTHALMOLOGIST Narrative 09/29/2013 8:47 AM PHYSICIAN/OPHTHALMOLOGIST SONNY ABDI M.D. FINAL REPORT ACC# Date Time Exam [id number] Sep 25, 2013 10:31:00 BMV [id number] [place] Screening Mamm Technologist(s): Vale Curran; ; EXAMINATION: Mammogram Technique: Bilateral Full-Field Digital Screening Mammogram was performed. Views obtained: bilateral craniocaudal and bilateral mediolateral oblique. Computer Aided Detection was performed with GOOM 1.3 version 9.3. Mammogram Findings: The present examination has been compared to a prior imaging study performed at [facility] on 09/23/2012. There [...] M.D. FINAL REPORT ACC# Date Time Exam [id number] Sep 25, 2013 10:31:00 BMV [id number] [place] Screening Mamm Technologist(s): Vale Curran; ; EXAMINATION: Mammogram Technique: Bilateral Full-Field Digital Screening Mammogram was performed. Views obtained: bilateral craniocaudal and bilateral mediolateral oblique. Computer Aided Detection was performed with PlayCrafter.3 version 9.3. Mammogram Findings: The present examination has been compared to a prior imaging study performed at [facility] on09/23/2012. There are [...] Most Recently Relevant to Health Maintenance Insurance [employer] [facility] Member Subscriber Plan / Payer (Ef fective 2010-Present) Name:Leydi Su Member ID:[id number] Relation to Subscriber:Self Name:Leydi Su Subscriber ID:[id number] Payer ID:[id number] Type:[employer] HMO/PPO Address: [address] [place] [id number] [facility] MEDICARE [facility] [id number] [facility] [id number] MEDICARE MEDICARE [facility] [id number] Care Teams Senior Qualitative Researcher Relationship Specialty Start Date End Date Yannick Umanzor DO PCP - General Internal Medicine 10/18/20
--- OUTSIDE RECORDS SUMMARY | 2025-01-22 13:22 | XMS_ITS | Clinical Summary ---
Author Organization [facility] Care Team Providers Care Geosciences Professor Name Role Phone Unavailable Primary Care Provider Unavailabl e Encounters Date Type Department Care Team Description 11/11/2024 Lab Requisition [facility] [address] [place] [address] Nikolas Arnett DO Anemia, unspecified [...] - 12.00 10(3)/mcL 11/11/2024 10:30 AM CDT [facility] RBC 4.49 3.80 - 5.30 10(6)/mcL 11/11/2024 10:30 AM CDT [facility] HEMOGLOBIN (HGB) 14.4 12.0 - 15.8 g/dL 11/11/2024 10:30 AM CDT [facility] HEMATOCRIT (HCT) 43.5 36.0 - 47.0 % 11/11/2024 10:30 AM CDT [facility] MCV 96.9(H) 82.0 - 96.0 fL 11/11/2024 10:30 AM CDT [facility] MCH 32.1 26.0 - 34.0 pg 11/11/2024 10:30 AM CDT [facility] MCHC 33.1 31.0 - 36.0 g/dL 11/11/2024 10:30 AM CDT [facility] PLATELET COUNT 272 140 - 440 10(3)/[facility] 11/11/2024 10:30 AM CDT [facility] RDW 13.6 11.8 - 15.5 % 11/11/2024 10:30 AM CDT [facility] MPV 9.5(L) 9.7 - 12.4 fL 11/11/2024 10:30 AM CDT [facility] NEUTROPHILS 69.4 47.0 - 73.0 % 11/11/2024 10:30 AM CDT [facility] LYMPHOCYTES 18.4 18.0 - 42.0 % 11/11/2024 10:30 AM CDT [facility] MONOCYTES 9.9 4.0 - 12.0 % 11/11/2024 10:30 AM CDT [facility] EOSINOPHILS 1.7 0.0 - 5.0 % 11/11/2024 10:30 AM CDT [facility] BASOPHILS 0.6 0.0 - 1.0 % 11/11/2024 10:30 AM CDT [facility] ABSOLUTE NEUTROPHILS 7.54 1.60 - 7.70 10(3)/mcL 11/11/2024 10:30 AM CDT [facility] ABSOLUTE LYMPHOCYTES 1.99 1.30 - 3.20 10(3)/mcL 11/11/2024 10:30 AM CDT [facility] ABSOLUTE MONOCYTES 1.07(H) 0.20 - 1.00 10(3)/mcL 11/11/2024 10:30 AM CDT [facility] ABSOLUTE EOSINOPHIL 0.18 0.00 - 0.40 10(3)/mcL 11/11/2024 10:30 AM CDT [facility] ABSOLUTE BASOPHILS 0.06 0.00 - 0.10 10(3)/mcL 11/11/2024 10:30 AM CDT [facility] NRBC PER 100 WBC 0 11/12/19 10:30 AM CDT [facility] Blood No Phlebotomy Charged / Unknown 11/11/2024 8:30 AM CDT 11/11/2024 10:17 AM CDT Nikolas Arnett DO HEMATOLOGY ORDERABLES Final Resu lt [facility] [address] [place] [address] * (ABNORMAL) CMP (COMPREHENSIVE METABOLIC PANEL) (11/11/2024 8:30 AM CDT) SODIUM 141 136 - 145 mmol/L 11/11/2024 11:03 AM CDT [facility] POTASSIUM 2.8(L) 3.5 - 5.1 mmol/L 11/11/2024 11:03 AM CDT [facility] CHLORIDE 102 98 - 107 mmol/L 11/11/2024 11:03 AM CDT [facility] CO2, VENOUS 24 22 - 30 mmol/L 11/11/2024 11:03 AM CDT [facility] ANION GAP 17.8 <18.0 mmol/L 11/11/2024 11:03 AM CDT [facility] GLUCOSE 98 70 - 99 mg/dL 11/11/2024 11:03 AM CDT [facility] BUN 15 10 - 20 mg/dL 11/11/2024 11:03 AM CDT [facility] CREATININE, BLOOD 1.39(H) 0.60 - 1.00 mg/dL 11/11/2024 11:03 AM CDT [facility] BUN/CREATININE RATIO 11(L) 12 - 20 ratio 11/11/2024 11:03 AM T [facility] TOTAL PROTEIN 6.5 6.0 - 8.0 g/dL 11/11/2024 11:[address] [facility] ALBUMIN 3.5 3.5 - 5.0 g/dL 11/11/2024 11:[address] [facility] A/G RATIO 1.2 1.0 - 2.2 11/11/2024 11:[address] [facility] CALCIUM 9.0 8.7 - 10.5 mg/dL 11/11/2024 11:[address] [facility] T BILI 0.9 0.2 - 1.2 mg/dL 11/11/2024 11:[address] [facility] SGOT (AST) 68(H) <43 U/L 11/11/2024 11:[address] [facility] SGPT (ALT) 27 <56 U/L 11/11/2024 11:[address] [facility] ALKALINE PHOSPHATASE 55 40 - 150 U/L 11/11/2024 11:[address] [facility] GFR, ESTIMATED 41(L) >=60 11/11/2024 11:[address] [facility] Comment: Creatinine Clearance is the preferred criteria for selecting drug dose adjustments in renally impaired patients. The GFR is provided as additional pertinent clinical information. GFR is reported in mL/min/1.73 sq m. Calculation based on the Chronic Kidney Disease Epidemiology Collaboration (CKD- EPI) equation refit without adjustment for race. GFR, EST. 46(L) >=60 025 11:[address] [facility] GFR, EST. NONAFRICAN 38(L) >=60 11/11/2024 11:[address] [facility] Blood No Phlebotomy Charged / Unknown 11/11/2024 8:30 AM T 11/11/2024 10:17 AM CDT us Nikolas Arnett DO CHEMISTRY ORDERABLES Final Resul t [facility] [address] [place] [address] from Last 3 Months
--- OUTSIDE RECORDS SUMMARY | 2025-01-22 13:22 | XMS_ITS | Clinical Summary ---
Author Organization [facility] popAD Address [address] [address] Care Team Providers Care Data Security Analyst Name Role Phone Megan Mcwilliams MD Unavailable Kwame Hathaway MD Unavailable [phone] Yannick Umanzor DO Primary Care Provider [phone] Source Comments [facility],non-owned Affiliates and Associated Physician Practices is amultiple site organization consisting of ambulatory clinics and hospital sitesin [place], [place], [place] and [place]. This disclosure is being madepursuant to the Care Everywhere program and may not contain all information available regarding this patient. Last updated 18.[facility] Allergies Active Allergy Reactions Criticality Noted Date Comments Acyclovir Urticaria Medium 08/17/2014 Contrast-Gadolinium Agents For Mri Urticaria Medium 01/11/2025 Omeprazole Shortness of Breath High hyperventilation Medications * Be aware that medications may not be up to date on this document. Alwaysverify current medications with the patient. LORazepam (ATIVAN) 2 MG tablet Take 2 mg by mouth 3 times daily Active lamoTRIgine (LAMICTAL) 200 MG tablet Take 200 mg by mouth 2 times daily Active HYDROcodone-ac etaminophen (NORCO) 10-325 MG tablet Take 1 Tab by mouth every 8 hours as needed for Pain Active Eyelid Cleansers (AVENOVA EX) by Apply externally route 2 times daily Active polyvinyl alcohol-povido ne (REFRESH) 1.4-0.6 % ophthalmic solution 1 Drop 2 times daily Active Ferrous Sulfate (SLOW FE PO) Take 1 Tab by mouth once daily Active sennosides (SENOKOT) 8.6 MG tablet Take by mouth at bedtime Active Fiber, Guar Gum, Take by mouth once daily 2 gummies daily Active Cyanocobalamin (NASCOBAL) 500 MCG/0.1ML Active RESTASIS MULTIDOSE 0.05 % ophthalmic suspension 03/31/20 17 Active DULoxetine (CYMBALTA) 60 MG capsule 05/07/20 17 Active sertraline (ZOLOFT) 100 MG tablet Take 100 mg by mouth once daily Active acetaminophen (Tylenol) 500 MG tablet Take 2 (two) tablets by mouth 3 times daily Maximum allowable Acetaminophen amount = 4 Grams (4000 mg) / 24 hours. 01/13/20 25 Active carvedilol (Coreg) 6.25 MG tablet Take 3 (three) tablets by mouth 2 times daily with morning and evening meal for 30 days 01/13/20 Active polyethylene glycol 3350 (Miralax) 17 g packet Take 17 (seventeen) g by mouth once daily 01/14/20 25 Active pantoprazole EC (PROTONIX) 40 MG tablet Take 40 mg by mouth once daily Discontin ued(List Clean-Up) cyclobenzaprin e (FLEXERIL) 5 MG tablet Take 5 mg by mouth 2 times daily as needed Discontin ued(List Clean-Up) Cyanocobalamin 500 MCG/0.1ML every 7 days Discontin ued(List Clean-Up) ARIPiprazole (ABILIFY) 1 MG half tablet Take 1 mg by mouth once daily Discontin ued(List Clean-Up) DULOXETINE HCL PO Take 60 mg by mouth 2 times daily Discontin ued(List Clean-Up) Mirabegron (MYRBETRIQ PO) Take 25 mg by mouth once daily Discontin ued(List Clean-Up) doxycycline (VIBRAMYCIN) 50 MG capsule Take 50 mg by mouth every 12 hours For eye infection, jail administration Discontin ued(List Clean-Up) estradiol (YUVAFEM) 10 MCG vaginal tabletIndicati ons:Postmenopa usal atrophic vaginitis Insert 1 Tab into the vagina Two times a week 26 Tab 3 02/27/20 17 025 Discontin ued(List Clean-Up) traZODone (DESYREL) 100 MG tablet Take 200 mg by mouth at bedtime 025 Discontin ued(List Clean-Up) ARIPiprazole (ABILIFY) 20 MG tablet 04/28/20 17 025 Discontin ued(List Clean-Up) buPROPion SR 12hr (WELLBUTRIN-SR ) 150 MG tablet Take 150 mg by mouth 2 times daily 025 Discontin ued(List Clean-Up) famotidine (PEPCID) 40 MG tablet Take 40 mg by mouth once daily 025 Discontin ued(List Clean-Up) Active Problems Problem Noted Date Diagnosed Date Scalp laceration 01/12/2025 HTN (hypertension) 01/12/2025 SDH (subdural hematoma) 01/11/2025 Hypokalemia 01/11/2025 Trauma 01/11/2025 JERRY (acute kidney injury) 01/11/2025 Acute pain due to trauma 01/11/2025 Menopause Postmenopausal atrophic vaginitis Urgency Urinary Incontinence Polypharmacy Fecal incontinence Bipolar Disorder Resolved Problems Problem Noted Date Diagnosed Date Resolved Date XIOMARA (stress urinary incontinence, female) 05/20/2017 Constipation 03/26/2017 POP-Q stage 2 rectocele 04/24 POP-Q stage 1 cystocele 04/24 Encounters Date Type Department Care Team Description 01/18/2025 Telephone Transitional Care at [address] [address] Breanna Dowell MA Question 01/17/2025 Telephone [facility] - Centralized Scheduling [address] [place] [address] Jasmine Chan APRN-CINDER PIT WORKER Reschedule Appointment (01/17-Left message to reschedule Dustin's 02/[address] prior-reschedule to 02/07 or 02/08 per Dustin. No MyChart--Pending-DL M-MS/01/18-Left imipqsj-[id number]) 01/11/2025 4:47 AM CDT - 01/12/2025 9:00 PM CDT Hospital Encounter [facility] 5S ACUTE [address] [place] [address] Nicky Anderson MD Wojcik, Brandon M, MD Surgery General Discharge Disposition: Nursing Facility:Medicaid 01/11/2025 Travel from Last 3 Months Family History Medical History Relation Name Comments Cancer - Colon Father Relation Name Status Comments Father Social History Tobacco Use Types Packs/Day Years Used Date Smoking Tobacco: Former Cigarettes Q uit: 2015 Smokeless Tobacco: Never Tobacco Cessation:Counseling Given: Yes Alcohol Use Standard Drinks/Week Comments No 0 (1 standard drink = 0.6 oz pur e alcohol) AUDIT-C Answer Date Recorded Q1: How often do you have a drink containing alc ohol? Patient declined 01/12/2025 Q2: How many drinks containi ng alcohol do you have on a typical day when you are drinking? Patient declined 01/12/2025 Q3: How often do you have si x or more drinks on one occasion? Patient declined 01/12/2025 Overall Financial Resource Strain (CARDIA) Answe r Date Recorded How hard is it for you to pa y for the very basics like food, housing, medical care, and heating? Not hard at all 01/12/2025 [facility] Occupat ional [facility] - Occupational Stress Questionnaire Answer Date Recorded Do you feel stress - tense, restless, nervous, or anxious, or unable to sleep at night because your mind is troubled all the time - these days? Not at all 01/12/2025 Hunger Vital Sign Answer Date Recorded Within the past 12 months, y ou worried that your food would run out before you got the money to buy more. Never true 01/13/20 25 Within the past 12 months, t he food you bought just didn't last and you didn't have money to get more. Never true 01/12/2025 PRAPARE - Transportation Answer Date Re corded In the past 12 months, has l ack of transportation kept you from medical appointments or from getting medications? No 12/22 In the past 12 months, has l ack of transportation kept you from meetings, work, or from getting things needed for daily living? No 01/12/2025 Housing Stability Vital Sign Answer Andrez e Recorded In the last 12 months, was t here a time when you were not able to pay the mortgage or rent on time? No 01/12/2025 In the past 12 months, how m any times have you moved where you were living? 0 01/12/2025 At any time in the past 12 m ont, were you homeless or living in a chcf (including now)? No 01/12/2025 Comments No Sex and Gender Information Value Date Recorded Sex Assigned at Not on file Legal Sex Female 1:13 PM CDT Gender Identity Not on file Sexual Orientation Not on file Last Filed Vital Signs Vital Sign Reading Time Taken Comments Blood Pressure 114/47 01/12/2025 7:40 PM CDT Pulse 73 01/12/2025 7:40 PM CDT Temperature 36.6 C (97.8 F) 01/12/2025 7:40 PM CDT Respiratory Rate 17 01/12/2025 7:40 PM CDT Oxygen Saturation 99% 01/12/2025 7:40 PM CDT Inhaled Oxygen Concentration 50% 2017 1 0:20 AM CDT Weight 108.9 kg (240 lb) 01/11/2025 6:34 PM CDT Height 162.6 cm (5' 4.02) 01/11/2025 6:34 PM CD T Body Mass Index 41.18 01/11/2025 6:34 PM CDT Plan of Treatment Upcoming Encounters Date Type Department Care Team (Late st Contact Info) Description 02/08/2025 2:00 PM CDT Appointment [facility] CAT SCAN [address] [place] [phone] Julián Reeder MD [address] [facility] [address] [place] [address] 02/08/2025 2:30 PM CDT Office Visit [facility] - Neurosurgery [address] [facility] [place] [phone] Jasmine Chan APRN-CINDER PIT WORKER [address] [place] [phone] Health Maintenance Due Date Last Done Comments [...] - Risk 60-74 years 1-dose series) 2016 COVID-19 VACCINE ( season) 2024 06/10/2024, 06/14/2023, 09/05/2022, Additional history exists SCREENING FOR DIABETES 01/13/2028 , 01/12/2025, 01/11/2025, Additional history exists COLON MONITORING 07/22/2030 07/22/2020, , 07/22/2020, Additional history exists COLONOSCOPY - COLON CA SCREENING 07/22/2030 07/22/2020, 07/22/2020, 07/22/2020, Additional history exists Colorectal Cancer Screening 07/22/2030 MAMMOGRAM Discontinued 09/25/2013, 09/23/2012 INFLUENZA VACCINE Completed 06/10/2024, 06/14/2018 HEPATITIS B VACCINE Aged Out No longe r eligible based on patient's age to complete this topic HIB VACCINE Aged Out No longer eligi ble based on patient's age to complete this topic HPV VACCINE Aged Out No longer eligi ble based on patient's age to complete this topic MENINGOCOCCAL (Group B) VACCINE SHARED DECISION-MAKING Aged Out No longer eligible based on patient's age to complete this topic MENINGOCOCCAL GROUPS A/C/Y/W VACCINE Aged Out No longer eligible based on patient's age to complete this topic Medical Devices Implanted Type Area Airborne Operations Superintendent Device Identifier Shelf Expiration Date Model / Serial / Lot Sys Ureth Supp Obtryx Midurethral Trnstr Implanted:Qty: 1 on 2017 by Kwame Hathaway MD at [facility] [employer] 01/11/2020 [id number] / / [id number] Graft Tissue Xenform Ftl Bvn Drml Mtrx 7 Implanted:Qty: 1 on 2017 by Kwame Hathaway MD at [facility] [employer] 08/22/2019 [id number] / / [id number] Procedures Procedure Name Priority Date/Time Associated Diagnosis Comments BASIC METABOLIC PANEL (CALCIUM TOTAL) Routine 01/12/2025 2:42 PM CDT CARDIAC EKG ORDER 01/12/2025 10: 48 AM CDT BLOOD TYPE VERIFICATION STAT 01/12/2025 8:51 AM CDT CBC W AUTO DIFFERENTIAL Routine 01/12/2025 3:10 AM CDT PHOSPHORUS BLOOD Routine 01/12/2025 3:09 AM CDT MAGNESIUM BLOOD Routine 01/12/2025 3:09 AM CDT BASIC METABOLIC PANEL (CALCIUM TOTAL) Routine 01/12/2025 3:09 AM CDT BASIC METABOLIC PANEL (CALCIUM TOTAL) Routine 01/11/2025 2:[address] HEAD WO CONTRAST STAT 01/11/2025 1 0:30 AM CDT Trauma EKG 12-LEAD Routine 01/11/2025 6:[address] CHEST ABDOMEN PELVIS W CONT STAT 01/11/2025 5:[address] CERVICAL SPINE WO CONTRAST STAT 01/11/2025 5:[address] LUMBAR SPINE WO CONTRAST STAT 01/11/2025 5:[address] THORACIC SPINE WO CONTRAST STAT 01/11/2025 5:[address] HEAD WO CONTRAST STAT 01/11/2025 5 :49 AM CDT Trauma TYPE + SCREEN PANEL STAT 01/11/2025 5 :26 AM CDT PHOSPHORUS BLOOD STAT 01/11/2025 5:26 AM CDT MAGNESIUM BLOOD STAT 01/11/2025 5:26 AM CDT ALCOHOL ETHYL BLOOD STAT 01/11/2025 5:26 AM CDT BASIC METABOLIC PANEL (CALCIUM TOTAL) STAT 01/11/2025 5:26 AM CDT CBC W AUTO DIFFERENTIAL STAT 01/11/2025 5:26 AM CDT PT-INR [facility] STAT 01/11/2025 5:26 AM CDT TEG 6S PLATELET MAPPING STAT 01/11/2025 5:26 AM CDT TEG 6 GLOBAL HEMOSTASIS W/ LYSIS STAT 01/11/2025 5:26 AM CDT XR PELVIS 1 OR 2VW STAT 01/11/2025 4: 55 AM CDT Trauma XR CHEST 1VW PORTABLE STAT 01/11/2025 4:55 AM CDT Trauma ENDOSCOPY, COLON, SCREENING Routine 07/22/2020 10:36 AM CLERK FUNERAL DETAIL from Last 3 Months or Most Recently Relevant to Health Maintenance Results * (ABNORMAL) BASIC METABOLIC PANEL (CALCIUM TOTAL) (01/12/2025 2:42 PM CDT) Only the most recent of4 resultswithin the time period is included. Pathologist [facility] BUN 18 7 - 26 mg/dL 01/12/2025 7:37 PM [facility] Creatinine 1.30(H) 0.56 - 0.96 mg/dL 01/12/2025 7:37 PM [facility] Sodium 139 136 - 145 mmol/L 01/12/2025 7:37 PM [facility] Potassium 3.4(L) 3.5 - 4.5 mmol/L 01/12/2025 7:37 PM [facility] Chloride 103 98 - 107 mmol/L 01/12/2025 7:37 PM [facility] CO2 28 22 - 29 mmol/L 01/12/2025 7:37 PM [facility] Glucose 92 70 - 99 mg/dL 01/12/2025 7:37 PM [facility] Calcium 8.8 8.4 - 10.2 mg/dL 01/12/2025 7:37 PM [facility] Anion Gap 8 6 - 16 01/12/2025 7:37 PM [facility] BUN/Creatinine Ratio 14 7 - 23 01/12/2025 7:37 PM [facility] Osmolality Calculated 290 275 - 295 mOsm/kg 01/12/2025 7:37 PM [facility] eGFR by CKD-EPI 45(L) >=90 mL/min/1.7 3 m2 01/12/2025 7:37 PM [facility] Blood BLOOD SPECIMEN / Unknown Lab Venipuncture / Unknown 01/12/2025 2:42 PM CDT 01/12/2025 7:07 PM CDT us Key Joseph RADAR SCIENTIST-CINDER PIT WORKER LAB - CHEMISTRY ORDERABLE S Final Result [facility] [address] [place] [phone], [facility] [phone] * CARDIAC EKG ORDER (01/12/2025 10:48 AM CDT) Narrative 01/12/2025 10:48 AM CDT Ordered by an unspecified provider. us Scanned Document CARDIAC SERVICES ORDERABLES Fin al Result * BLOOD TYPE VERIFICATION (01/12/2025 8:51 AM CDT) ABO Rh A POS 01/12/2025 9:3 2 AM CDT [facility] BLOOD BANK LAB Blood Bank BLOOD SPECIMEN / Unknown Lab Venipuncture / Unknown 01/12/2025 8:51 AM CDT 01/12/2025 8:56 AM CDT us Nicky Anderson MD LAB - BLOOD BANK ORDERABLES Gaby gilliam Result [facility] BLOOD BANK LAB [address] [place] [address], [facility] [phone] * (ABNORMAL) CBC W AUTO DIFFERENTIAL (01/12/2025 3:10 AM CDT) Only the most recent of2 resultswithin the time period is included. WBC 11.6(H) 4.0 - 10.7 x10E9/L 01/12/2025 3:56 AM [facility] RBC Count 3.84(L) 3.90 - 5.20 x10E12/L 01/12/2025 3:56 AM [facility] Hemoglobin 12.1 11.9 - 15.8 g/dL 01/12/2025 3:56 AM [facility] Hematocrit 36.2 34.8 - 46.1 % 01/12/2025 3:56 AM [facility] MCV 94.3 80.0 - 98.0 fL 01/12/2025 3:56 AM [facility] MCH 31.5 26.7 - 33.6 pg 01/12/2025 3:56 AM [facility] MCHC 33.4 31.7 - 36.3 g/dL 01/12/2025 3:56 AM [facility] RDW-CV 13.8 11.3 - 14.8 % 01/12/2025 3:56 AM [facility] Platelet Count 245 150 - 420 x10E9/L 01/12/2025 3:56 AM [facility] MPV 9.8 7.8 - 11.4 fL 01/12/2025 3:56 AM [facility] Neutrophil % 77.3(H) 41.0 - 74.0 % 01/12/2025 3:56 AM [facility] Lymphocyte % 13.5(L) 17.0 - 47.0 % 01/12/2025 3:56 AM [facility] Monocyte % 8.2 3.0 - 11.0 % 01/12/2025 3:56 AM T [facility] Eosinophil % 0.1 0.0 - 7.0 % 01/12/2025 3:56 AM [facility] Basophil % 0.3 0.0 - 1.6 % 01/12/2025 3:56 AM [facility] Immature Granulocytes % 0.6 0.0 - 1.0 % 01/12/2025 3:56 AM [facility] Neutrophil Absolute 8.92(H) 1.60 - 7.50 x10E9/L 01/12/2025 3:56 AM [facility] Lymphocyte Absolute 1.56 1.00 - 4.40 x10E9/L 01/12/2025 3:56 AM [facility] Monocyte Absolute 0.95 0.15 - 1.00 x10E9/L 01/12/2025 3:56 AM [facility] Eosinophil Absolute 0.01 0.00 - 0.60 x10E9/L 01/12/2025 3:56 AM [facility] Basophil Absolute 0.04 0.00 - 0.13 x10E9/L 01/12/2025 3:56 AM [facility] Blood BLOOD SPECIMEN / Unknown Lab Venipuncture / Unknown 01/12/2025 3:10 AM CDT 01/12/2025 3:42 AM CDT us Julián Reeder MD LAB - HEMATOLOGY ORDERABLES Final Result [facility] [address] [place] [address], [facility] [phone] * PHOSPHORUS BLOOD (01/12/2025 3:09 AM CDT) Only the most recent of2 resultswithin the time period is included. Phosphorus 3.8 2.9 - 5.1 mg/dL 01/12/2025 4:17 AM CDT [facility] Blood BLOOD SPECIMEN / Unknown Lab Venipuncture / Unknown 01/12/2025 3:09 AM CDT 01/12/2025 3:43 AM CDT Julián Reeder MD LAB - CHEMISTRY ORDERABLES F inal Result Performing Organization Address [facility] Co de Phone Number [address] [address], [facility] [phone] * MAGNESIUM BLOOD (01/12/2025 3:09 AM CDT) Only the most recent of2 resultswithin the time period is included. Magnesium 2.2 1.6 - 2.6 mg/dL 01/12/2025 4:17 AM CDT [facility] Blood BLOOD SPECIMEN / Unknown Lab Venipuncture / Unknown 01/12/2025 3:09 AM CDT 01/12/2025 3:43 AM CDT Julián Reeder MD LAB - CHEMISTRY ORDERABLES F inal Result Performing Organization Address [facility] Co de Phone Number [address] [address], [place] [phone] * CT Head Wo Contrast (01/11/2025 10:30 AM CDT) Only the most recent of2 resultswithin the time period is included. Anatomical Region Laterality Modality Head Computed Tomogra phy 01/11/2025 11:0 0 AM CDT Impressions 01/11/2025 5:50 PM CDT IMPRESSION: 1.Stable 3 to 4 mm small acute subdural hematoma along the left parasagittal aspect of the falx with mild extension along the left tentorial leaflet. 2.No new hemorrhage identified. Report dictated by Maxime Franks MD, (manager of radiology). I, Lita Sudanagunta, MD have personally reviewed and interpreted this examination/study. > Interpreting Provider: Lita Weaver MD on 01/11/2025 5:50 PM Narrative 01/11/2025 5:50 PM CDT PROCEDURE: CT HEAD WO CONTRAST, DATE/TIME OF EXAM: 01/11/2025 10:31 AM, LOCATION [facility] INDICATION: T14.90XA: Trauma ADDITIONAL CLINICAL INFORMATION: Ordering Provider Reason For Exam: SDH, repeat evaluation Technologist Note: Additional: EXAMINATION: Computed tomography (CT) of the head without contrast TECHNIQUE: CT of the head was performed without contrast according to standard protocol. CT dose reduction technique was used, including Automated Exposure Control. COMPARISON: CT head from earlier today. FINDINGS: Redemonstrated area of hyperdensity along the left parasagittal aspect of the falx fissure measuring 3 to 4 mm in maximum thickness suggesting acute subdural blood hematoma. There is also mild extension of this subdural hematoma along the left tentorial leaflet measuring about 1 to 2 mm in thickness.. The ventricles are of normal size, shape, and morphology. The basilar cisterns are patent. No mass effect or midline shift is seen. Small area of encephalomalacia in the right occipital region could be secondary to prior posttreatment changes. The pan-white matter differentiation otherwise appears normal. Periventricular white matter hypoattenuation is indicative of chronic small vessel ischemic disease. There is vascular calcification of the carotid siphons. The orbits appear normal. The paranasal sinuses are clear. The mastoid air cells are clear. No soft tissue abnormality is identified.. No acute osseous abnormality. Prior postsurgical changes from right parieto-occipital craniotomy close to the vertex. Procedure Note Lita Weaver MD - 01/11/2025 PROCEDURE: CT HEAD WO CONTRAST, DATE/TIME OF EXAM: 01/11/2025 10:31 AM, LOCATION [facility] INDICATION: T14.90XA: Trauma ADDITIONAL CLINICAL INFORMATION: Ordering Provider Reason For Exam: SDH, repeat evaluation Technologist Note: Additional: EXAMINATION: Computed tomography (CT) of the head without contrast TECHNIQUE: CT of the head was performed without contrast according to standard protocol. CT dose reduction technique was used, including Automated Exposure Control. COMPARISON: CT head from earlier today. FINDINGS: Redemonstrated area of hyperdensity along the left parasagittal aspectof the falx fissure measuring 3 to 4 mm in maximum thickness suggestingacute subdural blood hematoma. There is also mild extension of this subdural hematoma along the left tentorial leaflet measuring about 1 to 2 mm in thickness.. The ventricles are of normal size, shape, and morphology. The basilar cisterns are patent. No mass effect or midline shift is seen. Small areaof encephalomalacia in the right occipital region could be secondary toprior posttreatment changes. The pan-white matter differentiation otherwise appears normal. Periventricular white matter hypoattenuation isindicative of chronic small vessel ischemic disease. There is vascularcalcification of the carotid siphons. The orbits appear normal. The paranasal sinusesare clear. The mastoid air cells are clear. No soft tissue abnormality is identified.. No acute osseous abnormality. Prior postsurgical changes from right parieto-occipital craniotomy closeto the vertex. IMPRESSION: 1.Stable 3 to 4 mm small acute subdural hematoma along the left parasagittal aspect of the falx with mild extension along the left tentorial leaflet. 2.No new hemorrhage identified. Report dictated by Maxime Franks MD, (manager of radiology). I, iLta Weaver MD have personally reviewed and interpreted this examination/study. > Interpreting Provider: Lita Weaver MD on 01/11/2025 5:50 PM us Jose Miguel Ratliff MD CT ORDERABLES Final Resul t * EKG 12-Lead (01/11/2025 6:39 AM CDT) Ventricular Rate 71 BPM H MUSE QRS Duration ms 92 ms [facility] MUSE Q-T Interval ms 336 ms [facility] MUSE QTC Calculation (Bezet) 365 ms [facility] MUSE Calculated R Ramey 15 degrees [facility] MUSE Calculated T Ramey -174 degrees [facility] M[facility] Interpretation EKG Likely Sinus rhythm but very poor baseline and artifacts BASELINE ARTIFACT POOR DATA QUALITY, INTERPRETATION MAY BE ADVERSELY AFFECTED NONSPECIFIC ST AND T WAVE ABNORMALITY ABNORMAL ECG NO PREVIOUS ECGS AVAILABLE Confirmed by AIDEE MURILLO MD ([id number]) on 01/14/2025 11:25:11 PM [facility] MUSE 01/11/2025 6:39 AM CDT 01/14/2025 11:25 PM CDT us Nicky Anderson MD ECG ORDERABLES Edited Result - Final [facility] * CT CHEST ABDOMEN PELVIS W CONT - Abdomen-pelvis trauma, blunt or penetrating (01/11/2025 5:49 AM CDT) Anatomical Region Laterality Modality Chest, Abdomen, Pelvis Computed Tomography 01/11/2025 5:54 AM CDT Impressions 01/11/2025 8:08 AM CDT Impression: 1.No acute visceral, vascular, or osseus injury identified in the chest, abdomen, or pelvis. 2.There is a 1.7 cm hypoattenuating nodule in the right lobe of thyroid gland. Recommend nonemergent thyroid ultrasound for further evaluation. 3.Indeterminate left adrenal nodule measuring 2.1 x 1.5 cm. Recommend follow-up such as adrenal protocol CT or MRI. > Dictated by Greg Dial MD, (manager of radiology). I, Jose Angel Olivas MD have personally reviewed and interpreted this examination/study. > Interpreting Provider: Jose Angel Olivas MD on 01/11/2025 8:08 AM Narrative 01/11/2025 8:08 AM CDT PROCEDURE: CT CHEST ABDOMEN PELVIS W CONT, DATE/TIME OF EXAM: 01/11/2025 5:51 AM, LOCATION [facility] INDICATION: T14.90XA: Trauma COMPARISON: None. TECHNIQUE: CT of the chest, abdomen, and pelvis was performed after the uneventful administration of 100 mL of Isovue 370 intravenous contrast according to standard protocol. Findings: Chest: Lower Neck and Axillae: 1.7 cm hypoattenuating nodule in the right lobe of the thyroid gland. Lungs: No pulmonary parenchymal or airway process is present. No suspicious pulmonary nodules are identified. No pleural fluid or pneumothorax is present. Heart and Pericardium: The cardiac chambers are normal in size. No pericardial fluid or thickening is present. Mediastinum and Karly: No mediastinal hemorrhage is present. No enlarged lymph nodes are present. Thoracic Vasculature: No vascular abnormality is present. Abdomen/pelvis: Liver: Normal. Gallbladder and Bile Ducts: Normal. Spleen: Normal. Pancreas: Normal. Adrenals: Indeterminate left adrenal nodule measuring 2.1 x 1.5 cm. Kidneys: Normal. Gastrointestinal: Surgical changes of the stomach. Stomach is otherwise normal. Small bowel and colonic bowel loops within normal limits. No evidence of bowel obstruction. Normal appendix. Mesentery/Peritoneum/Retroperitoneum: No free intraperitoneal air. No free fluid in the abdomen or pelvis. Bladder: Normal. Reproductive Organs: Uterus is present. A calcification is noted in the uterus. Abdominal Vasculature: Atherosclerotic calcification of the aorta and its branch vessels. Bones: Bone windows demonstrate no suspicious lytic or blastic lesions. Posterior fusion of L4-S1. No acute fracture Soft tissues: Normal. Procedure Note Jose Angel Olivas MD - 01/11/2025 PROCEDURE: CT CHEST ABDOMEN PELVIS W CONT, DATE/TIME OF EXAM:01/11/2025 5:51 AM, LOCATION [facility] INDICATION: T14.90XA: Trauma COMPARISON: None. TECHNIQUE: CT of the chest, abdomen, and pelvis was performed after the uneventful administration of 100 mL of Isovue 370 intravenous contrast according to standard protocol. Findings: Chest: Lower Neck and Axillae: 1.7 cm hypoattenuating nodule in the right lobe of the thyroid gland. Lungs: No pulmonary parenchymal or airway process is present. No suspicious pulmonary nodules are identified. No pleural fluid or pneumothorax is present. Heart and Pericardium: The cardiac chambers are normal in size. No pericardial fluid orthickening is present. Mediastinum and Karly: No mediastinal hemorrhage is present. No enlarged lymph nodes arepresent. Thoracic Vasculature: No vascular abnormality is present. Abdomen/pelvis: Liver: Normal. Gallbladder and Bile Ducts: Normal. Spleen: Normal. Pancreas: Normal. Adrenals: Indeterminate left adrenal nodule measuring 2.1 x 1.5 cm. Kidneys: Normal. Gastrointestinal: Surgical changes of the stomach. Stomach is otherwise normal. Smallbowel and colonic bowel loops within normal limits. No evidence of bowel obstruction. Normal appendix. Mesentery/Peritoneum/Retroperitoneum: No free intraperitoneal air. No free fluid in the abdomen or pelvis. Bladder: Normal. Reproductive Organs: Uterus is present. A calcification is noted in the uterus. Abdominal Vasculature: Atherosclerotic calcification of the aorta and its branch vessels. Bones: Bone windows demonstrate no suspicious lytic or blastic lesions.Posterior fusion of L4-S1. No acute fracture Soft tissues: Normal. Impression: 1.No acute visceral, vascular, or osseus injury identified in the chest, abdomen, or pelvis. 2.There is a 1.7 cm hypoattenuating nodule in the right lobe of thyroid gland. Recommend nonemergent thyroid ultrasound for further evaluation. 3.Indeterminate left adrenal nodule measuring 2.1 x 1.5 cm. Recommend follow-up such as adrenal protocol CT or MRI. > Dictated by Greg Dial MD, (manager of radiology). Jose Angel Luciano MD have personally reviewed and interpreted this examination/study. > Interpreting Provider: Jose Angel Olivas MD on 01/11/2025 8:08 AM us Jose Miguel Ratliff MD CT ORDERABLES Final Resul t * CT LUMBAR SPINE WO CONTRAST - T/L-spine trauma, Spine fracture (01/11/2025 5:49 AM CDT) Anatomical Region Laterality Modality Spine Computed Tomogra phy 01/11/2025 5:52 AM CDT Impressions 01/11/2025 3:57 PM CDT IMPRESSION: 1.A 4 mm asymmetric hyperdensity at the anterior parasagittal falx, likely represent acute subdural hematoma (series 8, image 31 and series 10, image 12). 2.No evidence of acute fracture in the cervical, thoracic, or lumbar spine. 3.Multilevel degenerative disc and joint disease of the cervical spine resulting in up to severe spinal canal stenosis at C5-C6 and C6-C7. MRI of the cervical spine is recommended for further evaluation of cord compression. 4.A 1.8 cm hypodense nodule in the right thyroid gland. Nonemergent thyroid ultrasound recommended. 5.Please refer to the concurrent, dedicated body report for findings in the chest, abdomen, and pelvis. Report dictated by Jos Silverman MD, (Operator [employer]in[employer]). Lilo Luciano MD have personally reviewed and interpreted this examination/study. > Interpreting Provider: Lilo David MD on 01/11/2025 3:57 PM Narrative 01/11/2025 3:57 PM CDT PROCEDURE: CT HEAD WO CONTRAST, CT CERVICAL SPINE WO CONTRAST, CT LUMBAR SPINE WO CONTRAST, CT THORACIC SPINE WO CONTRAST, DATE/TIME OF EXAM: 01/11/2025 5:51 AM, LOCATION [facility] INDICATION: T14.90XA: Trauma EXAMINATION: 1.Computed tomography (CT) of the head without contrast 2.CT of the cervical spine without contrast 3.CT of the thoracic spine without contrast 4.CT of the lumbar spine without contrast TECHNIQUE: CT of the head and cervical spine was performed without contrast according to standard protocol. Reformatted axial, sagittal, and coronal images of the thoracic and lumbar spine were obtained by the technologist from a concurrently performed body CT and sent to the workstation for review. CT dose reduction technique was used, including Automated Exposure Control. COMPARISON: No prior study is available for comparison at the time of this dictation. FINDINGS: Head: There is a 4 mm asymmetric hyperdensity at the anterior parasagittal falx, likely represent acute subdural hematoma (series 8, image 31 and series 10, image 12). Small areas of encephalomalacia within the bilateral parietal lobes. There is mild to moderate cerebral volume loss with associated ex vacuo ventricular dilatation. Ventricular prominence is disproportionate to sulcal dilation which is a nonspecific finding but can be seen in the setting of normal pressure hydrocephalus, in the appropriate clinical setting. Clinical correlation is recommended. The basilar cisterns are patent. No mass effect or midline shift is seen. The pan-white matter differentiation is normal. Periventricular white matter hypoattenuation is indicative of chronic small vessel ischemic disease. There is vascular calcification of the carotid siphons. Postsurgical changes of parieto-occipital cranioplasty. There are also some skin sandra within the right parietal scalp.. The orbits appear normal. The paranasal sinuses are clear.. The mastoid air cells are clear. Cervical spine: Grade 1 anterolisthesis of C3 on C4. Grade 1 retrolisthesis of C5 on C6 and C6 on C7. There is gentle cervical kyphosis. Mild dextrocurvature of the cervical spine. The bones are mildly osteopenic. Vertebral bodies are normal in height without evidence of acute fracture. Other than middle atlantoaxial joint osteoarthritis, the craniocervical junction appears normal. There is advanced degenerative disc disease. Severe central canal stenosis at C5-6 and C6-7 secondary to degenerative changes. Otherwise, multilevel mild to moderate central canal stenosis. There are varying degrees of advanced facet osteoarthritis. There are varying degrees of advanced uncovertebral joint osteoarthritis with the same degree of neural foraminal stenosis at these levels. There is atherosclerotic calcification of the carotid bifurcations. Retropharyngeal course of the bilateral common carotid arteries. A 1.8 cm hypodense nodule in the right thyroid gland. Dilated main pulmonary artery concerning for pulmonary hypertension. There is left atrial enlargement. There is minimal mitral annular calcifications. Thoracic spine: Slight exaggeration of the thoracic kyphosis. Minimal dextrocurvature of the thoracic spine. The alignment is otherwise maintained. The bones are mildly osteopenic. Vertebral bodies are normal in height without evidence of acute fracture. There is mild degenerative disc disease. No central canal stenosis is seen. The facets appear normal. No neural foraminal stenosis is seen. There is subsegmental atelectasis in the dependent portions of the lung bases. Reflux up to the cervical esophagus. Lumbar spine: Posterior fusion hardware of L4-S1 with rods and screws and interbody fusion devices. Right screw of L5 terminates at the paravertebral soft tissue partially. Otherwise, the hardware appears intact. Grade 1 retrolisthesis of L2 on L3. The bones are mildly osteopenic. Vertebral bodies are normal in height without evidence of acute fracture. There is moderate degenerative disc disease. No central canal stenosis is seen. There is mild facet osteoarthritis at multiple levels. There are varying degrees of neural foraminal stenosis at multiple levels. There is atherosclerotic calcification of the abdominal aorta and its branch vessels. Coarse calcification within the uterine endometrium. Brain injury guidelines: Skull fracture: No Subdural hematoma: </=4mm. Epidural hematoma: No epidural hematoma. Intraparenchymal hemorrhage: No intraparenchymal hemorrhage. Subarachnoid hemorrhage: No subarachnoid hemorrhage. Intraventricular hemorrhage: No. Midline shift: No. Procedure Note Lilo David MD - 01/11/2025 PROCEDURE: CT HEAD WO CONTRAST, CT CERVICAL SPINE WO CONTRAST, CTLUMBAR SPINE WO CONTRAST, CT THORACIC SPINE WO CONTRAST, DATE/TIME OF EXAM: 01/11/2025 5:51 AM, LOCATION [facility] INDICATION: T14.90XA: Trauma EXAMINATION: 1.Computed tomography (CT) of the head without contrast 2.CT of the cervical spine without contrast 3.CT of the thoracic spine without contrast 4.CT of the lumbar spine without contrast TECHNIQUE: CT of the head and cervical spine was performed withoutcontrast according to standard protocol. Reformatted axial, sagittal, and coronal images of the thoracic and lumbar spine were obtained by thetechnologist from a concurrently performed body CT and sent to the workstation for review. CT dose reduction technique was used, including AutomatedExposure Control. COMPARISON: No prior study is available for comparison at the time ofthis dictation. FINDINGS: Head: There is a 4 mm asymmetric hyperdensity at the anterior parasagittalfalx, likely represent acute subdural hematoma (series 8, image 31 and [id number], image 12). Small areas of encephalomalacia within the bilateral parietal lobes. There is mild to moderate cerebral volume loss with associated ex vacuo ventricular dilatation. Ventricular prominence is disproportionateto sulcal dilation which is a nonspecific finding but can be seen in the setting of normal pressure hydrocephalus, in the appropriate clinical setting. Clinical correlation is recommended. The basilar cisterns are patent. No mass effect or midline shift is seen. The pan-white matter differentiation is normal. Periventricular white matter hypoattenuationis indicative of chronic small vessel ischemic disease. There is vascular calcification of the carotid siphons. Postsurgical changes of parieto-occipital cranioplasty. There are also some skin sandra withinthe right parietal scalp.. The orbits appear normal. The paranasal sinusesare clear.. The mastoid air cells are clear. Cervical spine: Grade 1 anterolisthesis of C3 on C4. Grade 1 retrolisthesis of C5 on C6and C6 on C7. There is gentle cervical kyphosis. Mild dextrocurvature of the cervical spine. The bones are mildly osteopenic. Vertebral bodies are normal in height without evidence of acute fracture. Other than middle atlantoaxial joint osteoarthritis, the craniocervical junction appears normal. There is advanced degenerative disc disease. Severe centralcanal stenosis at C5-6 and C6-7 secondary to degenerative changes. Otherwise, multilevel mild to moderate central canal stenosis. There are varying degrees of advanced facet osteoarthritis. There are varying degrees of advanced uncovertebral joint osteoarthritis with the same degree ofneural foraminal stenosis at these levels. There is atheroscleroticcalcification of the carotid bifurcations. Retropharyngeal course of the bilateralcommon carotid arteries. A 1.8 cm hypodense nodule in the right thyroid gland. Dilated main pulmonary artery concerning for pulmonary hypertension.There is left atrial enlargement. There is minimal mitral annularcalcifications. Thoracic spine: Slight exaggeration of the thoracic kyphosis. Minimal dextrocurvature of the thoracic spine. The alignment is otherwise maintained. The bones are mildly osteopenic. Vertebral bodies are normal in height withoutevidence of acute fracture. There is mild degenerative disc disease. No central canal stenosis is seen. The facets appear normal. No neural foraminal stenosis is seen. There is subsegmental atelectasis in the dependent portions of the lung bases. Reflux up to the cervical esophagus. Lumbar spine: Posterior fusion hardware of L4-S1 with rods and screws and interbody fusion devices. Right screw of L5 terminates at the paravertebral soft tissue partially. Otherwise, the hardware appears intact. Grade 1 retrolisthesis of L2 on L3. The bones are mildly osteopenic. Vertebral bodies are normal in height without evidence of acute fracture. There is moderate degenerative disc disease. No central canal stenosis is seen. There is mild facet osteoarthritis at multiple levels. There are varying degrees of neural foraminal stenosis at multiple levels. There is atherosclerotic calcification of the abdominal aorta and its branch vessels. Coarse calcification within the uterine endometrium. Brain injury guidelines: Skull fracture: No Subdural hematoma: </=4mm. Epidural hematoma: No epidural hematoma. Intraparenchymal hemorrhage: No intraparenchymal hemorrhage. Subarachnoid hemorrhage: No subarachnoid hemorrhage. Intraventricular hemorrhage: No. Midline shift: No. IMPRESSION: 1.A 4 mm asymmetric hyperdensity at the anterior parasagittal falx,likely represent acute subdural hematoma (series 8, image 31 and series 10,image 12). 2.No evidence of acute fracture in the cervical, thoracic, or lumbarspine. 3.Multilevel degenerative disc and joint disease of the cervical spine resulting in up to severe spinal canal stenosis at C5-C6 and C6-C7. MRIof the cervical spine is recommended for further evaluation of cord compression. 4.A 1.8 cm hypodense nodule in the right thyroid gland. Nonemergentthyroid ultrasound recommended. 5.Please refer to the concurrent, dedicated body report for findings inthe chest, abdomen, and pelvis. Report dictated by Jos Silverman MD, (Operator [employer]in[employer]). Lilo Luciano MD have personally reviewed and interpretedthis examination/study. > Interpreting Provider: Lilo David MD on 01/11/2025 3:57 PM Jose Miguel Ratliff MD CT ORDERABLES Final Resul t * CT THORACIC SPINE WO CONTRAST - T/L-spine trauma, spine fracture (01/11/2025 5:49 AM CDT) Anatomical Region Laterality Modality Spine Computed Tomogra phy 01/11/2025 5:52 AM CDT Impressions 01/11/2025 3:57 PM CDT IMPRESSION: 1.A 4 mm asymmetric hyperdensity at the anterior parasagittal falx, likely represent acute subdural hematoma (series 8, image 31 and series 10, image 12). 2.No evidence of acute fracture in the cervical, thoracic, or lumbar spine. 3.Multilevel degenerative disc and joint disease of the cervical spine resulting in up to severe spinal canal stenosis at C5-C6 and C6-C7. MRI of the cervical spine is recommended for further evaluation of cord compression. 4.A 1.8 cm hypodense nodule in the right thyroid gland. Nonemergent thyroid ultrasound recommended. 5.Please refer to the concurrent, dedicated body report for findings in the chest, abdomen, and pelvis. Report dictated by Jos Silverman MD, (Operator Prefinish). Lilo Luciano MD have personally reviewed and interpreted this examination/study. > Interpreting Provider: Lilo David MD on 01/11/2025 3:57 PM Narrative 01/11/2025 3:57 PM CDT PROCEDURE: CT HEAD WO CONTRAST, CT CERVICAL SPINE WO CONTRAST, CT LUMBAR SPINE WO CONTRAST, CT THORACIC SPINE WO CONTRAST, DATE/TIME OF EXAM: 01/11/2025 5:51 AM, LOCATION [facility] INDICATION: T14.90XA: Trauma EXAMINATION: 1.Computed tomography (CT) of the head without contrast 2.CT of the cervical spine without contrast 3.CT of the thoracic spine without contrast 4.CT of the lumbar spine without contrast TECHNIQUE: CT of the head and cervical spine was performed without contrast according to standard protocol. Reformatted axial, sagittal, and coronal images of the thoracic and lumbar spine were obtained by the technologist from a concurrently performed body CT and sent to the workstation for review. CT dose reduction technique was used, including Automated Exposure Control. COMPARISON: No prior study is available for comparison at the time of this dictation. FINDINGS: Head: There is a 4 mm asymmetric hyperdensity at the anterior parasagittal falx, likely represent acute subdural hematoma (series 8, image 31 and series 10, image 12). Small areas of encephalomalacia within the bilateral parietal lobes. There is mild to moderate cerebral volume loss with associated ex vacuo ventricular dilatation. Ventricular prominence is disproportionate to sulcal dilation which is a nonspecific finding but can be seen in the setting of normal pressure hydrocephalus, in the appropriate clinical setting. Clinical correlation is recommended. The basilar cisterns are patent. No mass effect or midline shift is seen. The pan-white matter differentiation is normal. Periventricular white matter hypoattenuation is indicative of chronic small vessel ischemic disease. There is vascular calcification of the carotid siphons. Postsurgical changes of parieto-occipital cranioplasty. There are also some skin sandra within the right parietal scalp.. The orbits appear normal. The paranasal sinuses are clear.. The mastoid air cells are clear. Cervical spine: Grade 1 anterolisthesis of C3 on C4. Grade 1 retrolisthesis of C5 on C6 and C6 on C7. There is gentle cervical kyphosis. Mild dextrocurvature of the cervical spine. The bones are mildly osteopenic. Vertebral bodies are normal in height without evidence of acute fracture. Other than middle atlantoaxial joint osteoarthritis, the craniocervical junction appears normal. There is advanced degenerative disc disease. Severe central canal stenosis at C5-6 and C6-7 secondary to degenerative changes. Otherwise, multilevel mild to moderate central canal stenosis. There are varying degrees of advanced facet osteoarthritis. There are varying degrees of advanced uncovertebral joint osteoarthritis with the same degree of neural foraminal stenosis at these levels. There is atherosclerotic calcification of the carotid bifurcations. Retropharyngeal course of the bilateral common carotid arteries. A 1.8 cm hypodense nodule in the right thyroid gland. Dilated main pulmonary artery concerning for pulmonary hypertension. There is left atrial enlargement. There is minimal mitral annular calcifications. Thoracic spine: Slight exaggeration of the thoracic kyphosis. Minimal dextrocurvature of the thoracic spine. The alignment is otherwise maintained. The bones are mildly osteopenic. Vertebral bodies are normal in height without evidence of acute fracture. There is mild degenerative disc disease. No central canal stenosis is seen. The facets appear normal. No neural foraminal stenosis is seen. There is subsegmental atelectasis in the dependent portions of the lung bases. Reflux up to the cervical esophagus. Lumbar spine: Posterior fusion hardware of L4-S1 with rods and screws and interbody fusion devices. Right screw of L5 terminates at the paravertebral soft tissue partially. Otherwise, the hardware appears intact. Grade 1 retrolisthesis of L2 on L3. The bones are mildly osteopenic. Vertebral bodies are normal in height without evidence of acute fracture. There is moderate degenerative disc disease. No central canal stenosis is seen. There is mild facet osteoarthritis at multiple levels. There are varying degrees of neural foraminal stenosis at multiple levels. There is atherosclerotic calcification of the abdominal aorta and its branch vessels. Coarse calcification within the uterine endometrium. Brain injury guidelines: Skull fracture: No Subdural hematoma: </=4mm. Epidural hematoma: No epidural hematoma. Intraparenchymal hemorrhage: No intraparenchymal hemorrhage. Subarachnoid hemorrhage: No subarachnoid hemorrhage. Intraventricular hemorrhage: No. Midline shift: No. Procedure Note Lilo David MD - 01/11/2025 PROCEDURE: CT HEAD WO CONTRAST, CT CERVICAL SPINE WO CONTRAST, CTLUMBAR SPINE WO CONTRAST, CT THORACIC SPINE WO CONTRAST, DATE/TIME OF EXAM: 01/11/2025 5:51 AM, LOCATION [facility] INDICATION: T14.90XA: Trauma EXAMINATION: 1.Computed tomography (CT) of the head without contrast 2.CT of the cervical spine without contrast 3.CT of the thoracic spine without contrast 4.CT of the lumbar spine without contrast TECHNIQUE: CT of the head and cervical spine was performed withoutcontrast according to standard protocol. Reformatted axial, sagittal, and coronal images of the thoracic and lumbar spine were obtained by thetechnologist from a concurrently performed body CT and sent to the workstation for review. CT dose reduction technique was used, including AutomatedExposure Control. COMPARISON: No prior study is available for comparison at the time ofthis dictation. FINDINGS: Head: There is a 4 mm asymmetric hyperdensity at the anterior parasagittalfalx, likely represent acute subdural hematoma (series 8, image 31 and [id number], image 12). Small areas of encephalomalacia within the bilateral parietal lobes. There is mild to moderate cerebral volume loss with associated ex vacuo ventricular dilatation. Ventricular prominence is disproportionateto sulcal dilation which is a nonspecific finding but can be seen in the setting of normal pressure hydrocephalus, in the appropriate clinical setting. Clinical correlation is recommended. The basilar cisterns are patent. No mass effect or midline shift is seen. The pan-white matter differentiation is normal. Periventricular white matter hypoattenuationis indicative of chronic small vessel ischemic disease. There is vascular calcification of the carotid siphons. Postsurgical changes of parieto-occipital cranioplasty. There are also some skin sandra withinthe right parietal scalp.. The orbits appear normal. The paranasal sinusesare clear.. The mastoid air cells are clear. Cervical spine: Grade 1 anterolisthesis of C3 on C4. Grade 1 retrolisthesis of C5 on C6and C6 on C7. There is gentle cervical kyphosis. Mild dextrocurvature of the cervical spine. The bones are mildly osteopenic. Vertebral bodies are normal in height without evidence of acute fracture. Other than middle atlantoaxial joint osteoarthritis, the craniocervical junction appears normal. There is advanced degenerative disc disease. Severe centralcanal stenosis at C5-6 and C6-7 secondary to degenerative changes. Otherwise, multilevel mild to moderate central canal stenosis. There are varying degrees of advanced facet osteoarthritis. There are varying degrees of advanced uncovertebral joint osteoarthritis with the same degree ofneural foraminal stenosis at these levels. There is atheroscleroticcalcification of the carotid bifurcations. Retropharyngeal course of the bilateralcommon carotid arteries. A 1.8 cm hypodense nodule in the right thyroid gland. Dilated main pulmonary artery concerning for pulmonary hypertension.There is left atrial enlargement. There is minimal mitral annularcalcifications. Thoracic spine: Slight exaggeration of the thoracic kyphosis. Minimal dextrocurvature of the thoracic spine. The alignment is otherwise maintained. The bones are mildly osteopenic. Vertebral bodies are normal in height withoutevidence of acute fracture. There is mild degenerative disc disease. No central canal stenosis is seen. The facets appear normal. No neural foraminal stenosis is seen. There is subsegmental atelectasis in the dependent portions of the lung bases. Reflux up to the cervical esophagus. Lumbar spine: Posterior fusion hardware of L4-S1 with rods and screws and interbody fusion devices. Right screw of L5 terminates at the paravertebral soft tissue partially. Otherwise, the hardware appears intact. Grade 1 retrolisthesis of L2 on L3. The bones are mildly osteopenic. Vertebral bodies are normal in height without evidence of acute fracture. There is moderate degenerative disc disease. No central canal stenosis is seen. There is mild facet osteoarthritis at multiple levels. There are varying degrees of neural foraminal stenosis at multiple levels. There is atherosclerotic calcification of the abdominal aorta and its branch vessels. Coarse calcification within the uterine endometrium. Brain injury guidelines: Skull fracture: No Subdural hematoma: </=4mm. Epidural hematoma: No epidural hematoma. Intraparenchymal hemorrhage: No intraparenchymal hemorrhage. Subarachnoid hemorrhage: No subarachnoid hemorrhage. Intraventricular hemorrhage: No. Midline shift: No. IMPRESSION: 1.A 4 mm asymmetric hyperdensity at the anterior parasagittal falx,likely represent acute subdural hematoma (series 8, image 31 and series 10,image 12). 2.No evidence of acute fracture in the cervical, thoracic, or lumbarspine. 3.Multilevel degenerative disc and joint disease of the cervical spine resulting in up to severe spinal canal stenosis at C5-C6 and C6-C7. MRIof the cervical spine is recommended for further evaluation of cord compression. 4.A 1.8 cm hypodense nodule in the right thyroid gland. Nonemergentthyroid ultrasound recommended. 5.Please refer to the concurrent, dedicated body report for findings inthe chest, abdomen, and pelvis. Report dictated by Jos Silverman MD, (Operator Prefinish). I, Lilo Daivd MD have personally reviewed and interpretedthis examination/study. > Interpreting Provider: Lilo David MD on 01/11/2025 3:57 PM us Jose Miguel Ratliff MD CT ORDERABLES Final Resul t * CT CERVICAL SPINE WO CONTRAST - C-Spine Trauma, Spine fracture (01/11/2025 5:49 AM CDT) Anatomical Region Laterality Modality Spine Computed Tomogra phy 01/11/2025 5:52 AM CDT Impressions 01/11/2025 3:57 PM CDT IMPRESSION: 1.A 4 mm asymmetric hyperdensity at the anterior parasagittal falx, likely represent acute subdural hematoma (series 8, image 31 and series 10, image 12). 2.No evidence of acute fracture in the cervical, thoracic, or lumbar spine. 3.Multilevel degenerative disc and joint disease of the cervical spine resulting in up to severe spinal canal stenosis at C5-C6 and C6-C7. MRI of the cervical spine is recommended for further evaluation of cord compression. 4.A 1.8 cm hypodense nodule in the right thyroid gland. Nonemergent thyroid ultrasound recommended. 5.Please refer to the concurrent, dedicated body report for findings in the chest, abdomen, and pelvis. Report dictated by Jos Silverman MD, (Operator Prefinish). ILilo MD have personally reviewed and interpreted this examination/study. > Interpreting Provider: Lilo David MD on 01/11/2025 3:57 PM Narrative 01/11/2025 3:57 PM CDT PROCEDURE: CT HEAD WO CONTRAST, CT CERVICAL SPINE WO CONTRAST, CT LUMBAR SPINE WO CONTRAST, CT THORACIC SPINE WO CONTRAST, DATE/TIME OF EXAM: 01/11/2025 5:51 AM, LOCATION [facility] INDICATION: T14.90XA: Trauma EXAMINATION: 1.Computed tomography (CT) of the head without contrast 2.CT of the cervical spine without contrast 3.CT of the thoracic spine without contrast 4.CT of the lumbar spine without contrast TECHNIQUE: CT of the head and cervical spine was performed without contrast according to standard protocol. Reformatted axial, sagittal, and coronal images of the thoracic and lumbar spine were obtained by the technologist from a concurrently performed body CT and sent to the workstation for review. CT dose reduction technique was used, including Automated Exposure Control. COMPARISON: No prior study is available for comparison at the time of this dictation. FINDINGS: Head: There is a 4 mm asymmetric hyperdensity at the anterior parasagittal falx, likely represent acute subdural hematoma (series 8, image 31 and series 10, image 12). Small areas of encephalomalacia within the bilateral parietal lobes. There is mild to moderate cerebral volume loss with associated ex vacuo ventricular dilatation. Ventricular prominence is disproportionate to sulcal dilation which is a nonspecific finding but can be seen in the setting of normal pressure hydrocephalus, in the appropriate clinical setting. Clinical correlation is recommended. The basilar cisterns are patent. No mass effect or midline shift is seen. The pan-white matter differentiation is normal. Periventricular white matter hypoattenuation is indicative of chronic small vessel ischemic disease. There is vascular calcification of the carotid siphons. Postsurgical changes of parieto-occipital cranioplasty. There are also some skin sandra within the right parietal scalp.. The orbits appear normal. The paranasal sinuses are clear.. The mastoid air cells are clear. Cervical spine: Grade 1 anterolisthesis of C3 on C4. Grade 1 retrolisthesis of C5 on C6 and C6 on C7. There is gentle cervical kyphosis. Mild dextrocurvature of the cervical spine. The bones are mildly osteopenic. Vertebral bodies are normal in height without evidence of acute fracture. Other than middle atlantoaxial joint osteoarthritis, the craniocervical junction appears normal. There is advanced degenerative disc disease. Severe central canal stenosis at C5-6 and C6-7 secondary to degenerative changes. Otherwise, multilevel mild to moderate central canal stenosis. There are varying degrees of advanced facet osteoarthritis. There are varying degrees of advanced uncovertebral joint osteoarthritis with the same degree of neural foraminal stenosis at these levels. There is atherosclerotic calcification of the carotid bifurcations. Retropharyngeal course of the bilateral common carotid arteries. A 1.8 cm hypodense nodule in the right thyroid gland. Dilated main pulmonary artery concerning for pulmonary hypertension. There is left atrial enlargement. There is minimal mitral annular calcifications. Thoracic spine: Slight exaggeration of the thoracic kyphosis. Minimal dextrocurvature of the thoracic spine. The alignment is otherwise maintained. The bones are mildly osteopenic. Vertebral bodies are normal in height without evidence of acute fracture. There is mild degenerative disc disease. No central canal stenosis is seen. The facets appear normal. No neural foraminal stenosis is seen. There is subsegmental atelectasis in the dependent portions of the lung bases. Reflux up to the cervical esophagus. Lumbar spine: Posterior fusion hardware of L4-S1 with rods and screws and interbody fusion devices. Right screw of L5 terminates at the paravertebral soft tissue partially. Otherwise, the hardware appears intact. Grade 1 retrolisthesis of L2 on L3. The bones are mildly osteopenic. Vertebral bodies are normal in height without evidence of acute fracture. There is moderate degenerative disc disease. No central canal stenosis is seen. There is mild facet osteoarthritis at multiple levels. There are varying degrees of neural foraminal stenosis at multiple levels. There is atherosclerotic calcification of the abdominal aorta and its branch vessels. Coarse calcification within the uterine endometrium. Brain injury guidelines: Skull fracture: No Subdural hematoma: </=4mm. Epidural hematoma: No epidural hematoma. Intraparenchymal hemorrhage: No intraparenchymal hemorrhage. Subarachnoid hemorrhage: No subarachnoid hemorrhage. Intraventricular hemorrhage: No. Midline shift: No. Procedure Note Lilo David MD - 01/11/2025 PROCEDURE: CT HEAD WO CONTRAST, CT CERVICAL SPINE WO CONTRAST, CTLUMBAR SPINE WO CONTRAST, CT THORACIC SPINE WO CONTRAST, DATE/TIME OF EXAM: 01/11/2025 5:51 AM, LOCATION [facility] INDICATION: T14.90XA: Trauma EXAMINATION: 1.Computed tomography (CT) of the head without contrast 2.CT of the cervical spine without contrast 3.CT of the thoracic spine without contrast 4.CT of the lumbar spine without contrast TECHNIQUE: CT of the head and cervical spine was performed withoutcontrast according to standard protocol. Reformatted axial, sagittal, and coronal images of the thoracic and lumbar spine were obtained by thetechnologist from a concurrently performed body CT and sent to the workstation for review. CT dose reduction technique was used, including AutomatedExposure Control. COMPARISON: No prior study is available for comparison at the time ofthis dictation. FINDINGS: Head: There is a 4 mm asymmetric hyperdensity at the anterior parasagittalfalx, likely represent acute subdural hematoma (series 8, image 31 and hznivn25, image 12). Small areas of encephalomalacia within the bilateral parietal lobes. There is mild to moderate cerebral volume loss with associated ex vacuo ventricular dilatation. Ventricular prominence is disproportionateto sulcal dilation which is a nonspecific finding but can be seen in the setting of normal pressure hydrocephalus, in the appropriate clinical setting. Clinical correlation is recommended. The basilar cisterns are patent. No mass effect or midline shift is seen. The pan-white matter differentiation is normal. Periventricular white matter hypoattenuationis indicative of chronic small vessel ischemic disease. There is vascular calcification of the carotid siphons. Postsurgical changes of parieto-occipital cranioplasty. There are also some skin sandra withinthe right parietal scalp.. The orbits appear normal. The paranasal sinusesare clear.. The mastoid air cells are clear. Cervical spine: Grade 1 anterolisthesis of C3 on C4. Grade 1 retrolisthesis of C5 on C6and C6 on C7. There is gentle cervical kyphosis. Mild dextrocurvature of the cervical spine. The bones are mildly osteopenic. Vertebral bodies are normal in height without evidence of acute fracture. Other than middle atlantoaxial joint osteoarthritis, the craniocervical junction appears normal. There is advanced degenerative disc disease. Severe centralcanal stenosis at C5-6 and C6-7 secondary to degenerative changes. Otherwise, multilevel mild to moderate central canal stenosis. There are varying degrees of advanced facet osteoarthritis. There are varying degrees of advanced uncovertebral joint osteoarthritis with the same degree ofneural foraminal stenosis at these levels. There is atheroscleroticcalcification of the carotid bifurcations. Retropharyngeal course of the bilateralcommon carotid arteries. A 1.8 cm hypodense nodule in the right thyroid gland. Dilated main pulmonary artery concerning for pulmonary hypertension.There is left atrial enlargement. There is minimal mitral annularcalcifications. Thoracic spine: Slight exaggeration of the thoracic kyphosis. Minimal dextrocurvature of the thoracic spine. The alignment is otherwise maintained. The bones are mildly osteopenic. Vertebral bodies are normal in height withoutevidence of acute fracture. There is mild degenerative disc disease. No central canal stenosis is seen. The facets appear normal. No neural foraminal stenosis is seen. There is subsegmental atelectasis in the dependent portions of the lung bases. Reflux up to the cervical esophagus. Lumbar spine: Posterior fusion hardware of L4-S1 with rods and screws and interbody fusion devices. Right screw of L5 terminates at the paravertebral soft tissue partially. Otherwise, the hardware appears intact. Grade 1 retrolisthesis of L2 on L3. The bones are mildly osteopenic. Vertebral bodies are normal in height without evidence of acute fracture. There is moderate degenerative disc disease. No central canal stenosis is seen. There is mild facet osteoarthritis at multiple levels. There are varying degrees of neural foraminal stenosis at multiple levels. There is atherosclerotic calcification of the abdominal aorta and its branch vessels. Coarse calcification within the uterine endometrium. Brain injury guidelines: Skull fracture: No Subdural hematoma: </=4mm. Epidural hematoma: No epidural hematoma. Intraparenchymal hemorrhage: No intraparenchymal hemorrhage. Subarachnoid hemorrhage: No subarachnoid hemorrhage. Intraventricular hemorrhage: No. Midline shift: No. IMPRESSION: 1.A 4 mm asymmetric hyperdensity at the anterior parasagittal falx,likely represent acute subdural hematoma (series 8, image 31 and series 10,image 12). 2.No evidence of acute fracture in the cervical, thoracic, or lumbarspine. 3.Multilevel degenerative disc and joint disease of the cervical spine resulting in up to severe spinal canal stenosis at C5-C6 and C6-C7. MRIof the cervical spine is recommended for further evaluation of cord compression. 4.A 1.8 cm hypodense nodule in the right thyroid gland. Nonemergentthyroid ultrasound recommended. 5.Please refer to the concurrent, dedicated body report for findings inthe chest, abdomen, and pelvis. Report dictated by Jos Silverman MD, (Operator Prefinish). I, Lilo David MD have personally reviewed and interpretedthis examination/study. > Interpreting Provider: Lilo David MD on 01/11/2025 3:57 PM us Jose Miguel Ratliff MD CT ORDERABLES Final Resul t * (ABNORMAL) TEG 6 GLOBAL HEMOSTASIS W/ LYSIS (01/11/2025 5:26 AM CDT) Citrated Kaolin R (Reaction Time) 4.2(L) 4.6 - 9.1 min 01/11/2025 6:30 AM [facility] Comment:CK R result below no rmal range. Consistent with hypercoagulable clotting factors. Citrated Kaolin LY30 (Lysis) 0.0 0.0 - 2.6 % 01/11/2025 6:30 AM [facility] Citrated Functional Fibrinogen MA (Max Amplitude) 23.7 15.0 - 32.0 mm 01/11/2025 6:30 AM [facility] Citrated RapidTEG MA (Max Amplitude) 66.1 52.0 - 70.0 mm 01/11/2025 6:30 AM [facility] Blood BLOOD SPECIMEN / Unknown Venipuncture / Unknown 01/11/2025 5:26 AM CDT 01/11/2025 5:32 AM CDT us Jose Miguel Ratliff MD LAB - HEMATOLOGY ORDERABLES Final Result Performing Organization Address City/[facility]/ZIP Co de Phone Number [facility] [address] [place] [address], [facility] [phone] * (ABNORMAL) TEG 6S PLATELET MAPPING (01/11/2025 5:26 AM CDT) TEGPLM (Max Amplitude) Koalin 65.4 53.0 - 68.0 mm 01/11/2025 6:33 AM [facility] TEGPLM (Max Amplitude) ACTF 16.3 2.0 - 19.0 mm 01/11/2025 6:33 AM [facility] TEGPLM (Max Amplitude) ADP 48.5 45.0 - 69.0 mm 01/11/2025 6:33 AM [facility] TEGPLM (Max Amplitude) AA 54.5 51.0 - 71.0 mm 01/11/2025 6:33 AM [facility] TEGPLM %Inhibition ADP 34.4(H) 0.0 - 17.0 % 01/11/2025 6:33 AM [facility] TEGPLM %Inhibition AA 22.2(H) 0.0 - 11.0 % 01/11/2025 6:33 AM [facility] TEGPLM %Aggregation ADP 65.6(L) 83.0 - 100.0 % 01/11/2025 6:33 AM [facility] TEGPLM % Aggregation AA 77.8(L) 89.0 - 100.0 % 01/11/2025 6:33 AM [facility] Blood BLOOD SPECIMEN / Unknown Venipuncture / Unknown 01/11/2025 5:26 AM CDT 01/11/2025 5:32 AM CDT us Jose Miguel Ratliff MD LAB - HEMATOLOGY ORDERABLES Final Result Performing Organization Address [facility]/ZIP Co de Phone Number [facility] [address] [place] [address], [place] [phone] * PT-INR [facility] (01/11/2025 5:26 AM CDT) PT 13.5 12.1 - 14.8 Seconds 01/11/2025 5:50 AM CDT [facility] INR 1.1 See Comment 01/11/2025 5:50 AM CDT [facility] Comment:The suggested therap eutic range for standard coumadin (warfarin) therapy is an INR of 2.0-3.0. For high-risk patients (Mechanical Mitral Valve Prosthesis, etc.), the suggested prophylactic therapeutic range is an INR of 2.5-3.5. Blood BLOOD SPECIMEN / Unknown Venipuncture / Unknown 01/11/2025 5:26 AM CDT 01/11/2025 5:29 AM CDT Jose Miguel Ratliff MD LAB - COAGULATION ORDERABLE S Final Result Performing Organization Address [facility]/ZIP Co de Phone Number [facility] [address] [place] [id number], [place] [phone] * TYPE + SCREEN PANEL (01/11/2025 5:26 AM CDT) Antibody Screen NEG 6:11 AM CDT [facility] ABO Rh A POS 01/11/2025 6:11 AM CDT [facility] Blood Bank BLOOD SPECIMEN / Unknown Venipuncture / Unknown 01/11/2025 5:26 AM CDT 01/11/2025 5:33 AM CDT Jose Miguel Ratliff MD LAB - BLOOD BANK ORDERABLES Final Result Performing Organization Address City/[facility]/ZIP Co de Phone Number [facility] [address] [place] [address], [place] [phone] * ALCOHOL ETHYL BLOOD (01/11/2025 5:26 AM CDT) Ethanol (mg/dL) <10 <10 mg/dL 5:58 AM CDT [facility] Ethanol Calculated (g/dL) <0.010 <=0.010 g/dL 01/11/2025 5:58 AM CDT [facility] Blood BLOOD SPECIMEN / Unknown Venipuncture / Unknown 01/11/2025 5:26 AM CDT 01/11/2025 5:29 AM CDT Narrative [facility] - 01/11/2025 5:58 AM CDT Ethanol Interp <10: None Detected. Depression of OUTBOUND CALL CENTER REPRESENTATIVE: >100 mg/dl Potentially Critical: >250 mg/dl Potentially Fatal >400 mg/dl Ethanol in the patient's blood will contribute to the osmolar gap. Ethanol's contribution to the osmolar gap can be estimated by dividing the concentration of ethanol in mg/dL by 4.6. This test is for clinical use only and does not equal a VAMSHI for legal purposes. us Jose Miguel Ratliff MD LAB - CHEMISTRY ORDERABLES Final Result [address] [address], [facility] [phone] * XR CHEST 1VW PORTABLE (01/11/2025 4:55 AM CDT) Anatomical Region Laterality Modality Chest Digital Radiogra phy 01/11/2025 5:29 AM CDT Narrative 01/11/2025 9:49 AM CDT PROCEDURE: XR CHEST 1VW PORTABLE, DATE/TIME OF EXAM: 01/11/2025 4:55 AM, LOCATION [facility] INDICATION: T14.90XA: Trauma COMPARISON: None. TECHNIQUE: Frontal radiograph of the chest. FINDINGS/IMPRESSION: Low lung volumes with bronchovascular crowding. There is no focal consolidation, pleural effusion, or pneumothorax. The cardiomediastinal silhouette is normal. The visible bony thorax is intact. Surgical material is seen at the epigastrium. Report dictated by Jos Silverman MD, (Operator Prefinish). IBarb MD have personally reviewed and interpreted this examination/study. > Interpreting Provider: Barb Summers MD on 01/11/2025 9:49 AM Procedure Note Barb Summers MD - 01/11/2025 PROCEDURE: XR CHEST 1VW PORTABLE, DATE/TIME OF EXAM: 01/11/2025 4:55AM, LOCATION [facility] INDICATION: T14.90XA: Trauma COMPARISON: None. TECHNIQUE: Frontal radiograph of the chest. FINDINGS/IMPRESSION: Low lung volumes with bronchovascular crowding. There is no focal consolidation, pleural effusion, or pneumothorax. The cardiomediastinal silhouette is normal. The visible bony thorax is intact. Surgicalmaterial is seen at the epigastrium. Report dictated by Jos Silverman MD, (Operator Prefinish). Barb Luciano MD have personally reviewed and interpreted this examination/study. > Interpreting Provider: Barb Summers MD on 01/11/2025 9:49 AM Jose Miguel Ratliff MD DIAGNOSTIC IMAGING ORDERABL ES Final Result * XR PELVIS 1 OR 2VW (01/11/2025 4:55 AM CDT) Anatomical Region Laterality Modality Pelvis Digital Radiogra phy 01/11/2025 5:30 AM CDT Impressions 01/11/2025 9:47 AM CDT IMPRESSION: No acute fracture identified. Report dictated by Jos Silverman MD, MD (manager of radiology). Barb Luciano MD have personally reviewed and interpreted this examination/study. > Interpreting Provider: Barb Summers MD on 01/11/2025 9:47 AM Narrative 01/11/2025 9:47 AM CDT PROCEDURE: XR PELVIS 1 OR 2VW, DATE/TIME OF EXAM: 01/11/2025 4:55 AM, LOCATION [facility] INDICATION: T14.90XA: Trauma COMPARISON: None. FINDINGS: Partially visualized posterior fusion hardware of the lumbar spine with interbody fusion devices. No acute fracture is identified. The femoral heads appear well-seated within their respective acetabula. The pubic symphysis is intact. Bone density and texture are normal. The sacroiliac joints are normal. Procedure Note Barb Summers MD - 01/11/2025 PROCEDURE: XR PELVIS 1 OR 2VW, DATE/TIME OF EXAM: 01/11/2025 4:55 AM, LOCATION [facility] INDICATION: T14.90XA: Trauma COMPARISON: None. FINDINGS: Partially visualized posterior fusion hardware of the lumbar spine with interbody fusion devices. No acute fracture is identified. The femoral heads appear well-seated within their respective acetabula. The pubic symphysis is intact. Bone density and texture are normal. The sacroiliac joints are normal. IMPRESSION: No acute fracture identified. Report dictated by Jos Silverman MD, MD (manager of radiology). I, Barb Summers MD have personally reviewed and interpreted this examination/study. > Interpreting Provider: Barb Summers MD on 01/11/2025 9:47 AM us Jose Miguel Ratliff MD DIAGNOSTIC IMAGING ORDERABL ES Final Result * ENDOSCOPY, COLON, SCREENING (07/22/2020 10:36 AM CLERK FUNERAL DETAIL) Report Endoscopy POC _ Patient Name: Vale Pfeiffer Procedure Date: 07/22/2020 10:36 AM Date of : 1955 Admit Type: Outpatient Age: 65 Gender: Female Ethnicity: Not or Race: White Attending MD: Damien Green MD _ Procedure: Colonoscopy Indications: Family history of colon cancer in a first-degree relative, Last colonoscopy 10 years ago Providers: Damien Green MD (Doctor), Oralia العلي, RN, Bridget Belcher Referring MD: Megan Mcwilliams MD (Referring MD) Medicines: Monitored Anesthesia Care [...] for surveillance. Procedure Code(s): --- Professional --- 07457, Colonoscopy, flexible; with removal of tumor(s), polyp(s), or other lesion(s) by snare technique 49417, Colonoscopy, flexible; with directed submucosal injection(s), any substance 95283, 59, Colonoscopy, flexible; with biopsy, single or multiple --- Technical --- 31794, Colonoscopy, flexible; with removal of tumor(s), polyp(s), or other lesion(s) by snare technique 20551, Colonoscopy, flexible; with directed submucosal injection(s), any substance 85375, 59, Colonoscopy, flexible; with biopsy, single or [...] neoplasm of digestive organs CPT copyright 2017 [employer]. All rights reserved. The codes documented in this report are preliminary and upon interactive art director review may be revised to meet current compliance requirements. Damien Green MD 07/22/2020 12:00:12 PM This report has been signed electronically. Number of Addenda: 0 Note Initiated On: 07/22/2020 10:36 AM [facility] ENDOSCOPY 07/22/2020 10:3 6 AM CLERK FUNERAL DETAIL us Damien Green MD GI PROCEDURE ORDERABLES Edited Result - Final [facility] ENDOSCOPY from Last 3 Months or Most Recently Relevant to Health Maintenance Insurance [facility] Address: [facility] [id number] [place] [address] MEDICARE Advance Directives * Full Code (Latest Code Status on File) Date Activated Date Inactivated Comments 01/11/2025 11:15 AM 01/12/2025 10:54 PM * Full Code Date Activated Date Inactivated Comments 2017 12:04 PM 04/08/2017 5:39 PM Care Teams Data Security Analyst Relationship Specialty Start Date End Date Yannick Umanzor DO [address] [place] [address] PCP - General Internal Medicine 01/19/25 Megan Mcwilliams MD [address] [address] 02/26/17 Kwame Hathaway MD [address] [facility] [address] [place] [address] Senior Technical Editor Obstetrics and Gynecology 05/20/17
--- OUTSIDE RECORDS SUMMARY | 2025-01-22 13:22 | XMS_ITS | Patient Health Record ---
Author Organization [facility] Address [address] [place], [place] [id number] Care Team Providers Care Director Strategy Name Role Phone DEE CAMACHO Unavailable [phone] Yannick Umanzor Unavailable Unavailable Allergies No Known [...] Surgeons [place] [address] [place] [id number] 03/30/2024 DEE CAMACHO Fungal infection of nail B35.1 ; Pain in right toe(s) M79.674 ; Pain in left toe(s) M79.675 and Unspecified atherosclerosis of craig arteries of extremities, bilateral legs I70.203 [facility] [place] [address] [place], [place] [id number] 06/01/2024 DEE CAMACHO 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, bilateral legs I70.213 ; Onychomycosis B35.1 ; Pain in right toe(s) M79.674 and Pain in left toe(s) M79.675 [facility] [place] [address] [place], [place] [id number] 08/03/2024 DEE CAMACHO 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, bilateral legs I70.213 ; Onychomycosis B35.1 ; Pain in right toe(s) M79.674 and Pain in left toe(s) M79.675 [facility] [place] [address] [place], [place] [id number] 11/02/2024 DEE CAMACHO 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, bilateral legs I70.213 ; Onychomycosis B35.1 ; Pain in right toe(s) M79.674 and Pain in left toe(s) M79.675 Assessments Encounter Date Diagnosis (ICD Code) Assessment Notes Treatment Notes Treatment Clinical Notes Section Notes 03/30/2024 Fungal infection of nail (ICD-10 - B35.1) 06/01/2024 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, bilateral legs (ICD-10 - I70.213) 06/01/2024 Onychomycosis (ICD-10 - B35.1) Nails 1-5 Bilateral were debrided extensively with nail nippers and emery board, reducing length and girth to pink healthy tissue with any subungual debris and necrotic tissue removed 08/03/2024 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, bilateral legs (ICD-10 - I70.213) 11/02/2024 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, bilateral [...] (ICD-10 - M79.675) 03/30/2024 Unspecified atherosclerosis of craig arteries of extremities, bilateral legs (ICD-10 - I70.203) 03/30/2024 Other Nails 1-5 Bilateral were debrided extensively with nail nippers and emery board, reducing length and girth to pink healthy tissue with any subungual debris and necrotic tissue removed Plan Of Treatment No Information Insurance Providers Payer Name Payer Address Payer Phone Subscriber Number Group Number Insured Name Patient Relationship to Insured Coverage Start Date Coverage End Date [employer] PPO [address] [place], [place] [id number] Ankita VALE PFEIFFER Self - patient is the insured Medicare Part B [place] [address] [place] [address] [id number] VALE PFEIFFER Self - patient is the insured Medical (General) History Medical History History ICD Code acid reflux artificial joint fibromyalgia GERD Respiratory disease Sleep apnea Back Trouble Psychiatric Disorder hypertension Surgical History Surgery Date(Month/Year) Brain surgery Right foot surgery Right wrist surgery Bladder surgery
--- OUTSIDE RECORDS SUMMARY | 2025-01-22 13:22 | XMS_ITS | Clinical Summary ---
Author Organization [facility] Address [address] [place] [address] Phone Care Team Providers Care Gas Combustion Engineer Name Role Phone JavierYannick price Primary Care Provider [phone] Allergies Active Allergy Reactions Criticality Noted Date [...] Act haris ergocalciferol (VITAMIN D-2) 1.25 MG (86796 UT) capsule 12/12/2019 Active Carbonyl Iron 45 [...] 1:43 PM CDT Height 162.6 cm (5' 4) 03/04/2022 1:43 PM CDT Body Mass Index 48.99 03/04/2022 1:43 PM CDT Plan of Treatment Health Maintenance Due Date Last Done Comments Pneumococcal PPSV23/PCV13 65 + Years / Low and Medium Risk (1 of 4 - PCV) 2006 Influenza Vaccine (Season Ended) 2025 Insurance [employer] MEDICARE Care Teams Gas Combustion Engineer Relationship Specialty Start Date End Date Yannick Umanzor DO [address] [place] [address] PCP - General Internal Medicine 01/27/21
--- OUTSIDE RECORDS SUMMARY | 2025-01-22 13:22 | XMS_ITS | CONTINUITY OF CARE DOCUMENT ---
Author Name josh moreno Address Unknown Organization [facility] Address [address] [place] [address] Phone [phone] Care Team Providers Care Flagstone Layer Name Role Phone Tyrese APPIAH, Eloisa Unavailable INSURANCE PROVIDERS Payer name Policy type / Coverage type Eamon red green party ID MEDICARE SECONDARY [place] Medicare [id number] [employer] OPEN ACCESS Other [id number]
--- OUTSIDE RECORDS SUMMARY | 2025-01-22 13:22 | XMS_ITS ---
Author Organization [facility] Address [address] [facility] [address] [place], [place] [id number] Care Team Providers Care Warehouse Administrative Assistant Name Role Phone DEE GEE Unavailable [phone] Yannick Umanzor Unavailable Unavailable REASON FOR VISIT *General care Encounters Encounter Location Date Provider Diagnosis [facility] [place] [address] [place], [place] [id number] 01/04/2025 DEE GEE Plan Of Treatment No Information Progress Notes * VALE PFEIFFERDOB:1955 (69 yo F)Acc No.[id number]:01/04/2025 Patient: Get PEÑAVALE Provider: Melisa Gee DPM :1955 A ge:69 Y S ex:Female Date:01/04/2025 Address:[address] [place], [place] [phone] Subjective: * Chief Complaints: * 1 . *General care. * Medical History: Objective: * Vitals: Assessment: Plan: * Treatment: * Billing Information: * Visit Code: * Procedure Codes: * Electronic signature of DEE GEE DPM on 01/22/2025 at 01:22 PM CDT Sign off status: Pending * Provider: Melisa Gee DPM Date: 01/04/2025 Generated for Printi ng/Faxing/eTransmitting on: 01/22/2025 01:22 PM CDT
--- OUTSIDE RECORDS SUMMARY | 2025-01-22 13:22 | XMS_ITS | Encounter Summary ---
Author Organization [facility] Address [address] [place] [address] Phone Care Team Providers Care Cook Boat Name Role Phone Unavailable Primary Care Provider Unavailabl e Encounter Details Date Type Department Care Team (Late st Contact Info) Description 11/11/2024 Lab Requisition [facility] [address] [place] [address] Nikolas Arnett DO [address] [place] [address] Anemia, unspecified Social History Tobacco Use Types [...] - 12.00 10(3)/mcL 11/11/2024 10:30 AM CDT [facility] RBC 4.49 3.80 - 5.30 10(6)/[facility] 11/11/2024 10:30 AM CDT [facility] HEMOGLOBIN (HGB) 14.4 12.0 - 15.8 g/dL 11/11/2024 10:30 AM CDT [facility] HEMATOCRIT (HCT) 43.5 36.0 - 47.0 % 11/11/2024 10:30 AM CDT [facility] MCV 96.9(H) 82.0 - 96.0 fL 11/11/2024 10:30 AM CDT [facility] MCH 32.1 26.0 - 34.0 pg 11/11/2024 10:30 AM CDT [facility] MCHC 33.1 31.0 - 36.0 g/dL 11/11/2024 10:30 AM CDT [facility] PLATELET COUNT 272 140 - 440 10(3)/[facility] 11/11/2024 10:30 AM CDT [facility] RDW 13.6 11.8 - 15.5 % 11/11/2024 10:30 AM CDT [facility] MPV 9.5(L) 9.7 - 12.4 fL 11/11/2024 10:30 AM CDT [facility] NEUTROPHILS 69.4 47.0 - 73.0 % 11/11/2024 10:30 AM CDT [facility] LYMPHOCYTES 18.4 18.0 - 42.0 % 11/11/2024 10:30 AM CDT [facility] MONOCYTES 9.9 4.0 - 12.0 % 11/11/2024 10:30 AM CDT [facility] EOSINOPHILS 1.7 0.0 - 5.0 % 11/11/2024 10:30 AM CDT [facility] BASOPHILS 0.6 0.0 - 1.0 % 11/11/2024 10:30 AM CDT [facility] ABSOLUTE NEUTROPHILS 7.54 1.60 - 7.70 10(3)/mcL 11/11/2024 10:30 AM CDT [facility] ABSOLUTE LYMPHOCYTES 1.99 1.30 - 3.20 10(3)/[facility] 11/11/2024 10:30 AM CDT [facility] ABSOLUTE MONOCYTES 1.07(H) 0.20 - 1.00 10(3)/[facility] 11/11/2024 10:30 AM CDT [facility] ABSOLUTE EOSINOPHIL 0.18 0.00 - 0.40 10(3)/[facility] 11/11/2024 10:30 AM CDT [facility] ABSOLUTE BASOPHILS 0.06 0.00 - 0.10 10(3)/[facility] 11/11/2024 10:30 AM CDT [facility] NRBC PER 100 WBC 0 11/12/19 10:30 AM CDT [facility] Blood No Phlebotomy Charged / Unknown 11/11/2024 8:30 AM CDT 11/11/2024 10:17 AM CDT Nikolas Arnett DO HEMATOLOGY ORDERABLES Final Resu lt [facility] [address] [place] [address] * (ABNORMAL) CMP (COMPREHENSIVE METABOLIC PANEL) (11/11/2024 8:30 AM CDT) SODIUM 141 136 - 145 mmol/L 11/11/2024 11:03 AM CDT [facility] POTASSIUM 2.8(L) 3.5 - 5.1 mmol/L 11/11/2024 11:03 AM CDT [facility] CHLORIDE 102 98 - 107 mmol/L 11/11/2024 11:03 AM CDT [facility] CO2, VENOUS 24 22 - 30 mmol/L 11/11/2024 11:03 AM CDT [facility] ANION GAP 17.8 <18.0 mmol/L 11/11/2024 11:03 AM CDT [facility] GLUCOSE 98 70 - 99 mg/dL 11/11/2024 11:03 AM [facility] BUN 15 10 - 20 mg/dL 11/11/2024 11:03 AM [facility] CREATININE, BLOOD 1.39(H) 0.60 - 1.00 mg/dL 11/11/2024 11:03 AM [facility] BUN/CREATININE RATIO 11(L) 12 - 20 ratio 11/11/2024 11:03 AM [facility] TOTAL PROTEIN 6.5 6.0 - 8.0 g/dL 11/11/2024 11:03 AM [facility] ALBUMIN 3.5 3.5 - 5.0 g/dL 11/11/2024 11:03 AM [facility] A/G RATIO 1.2 1.0 - 2.2 11/11/2024 11:03 AM [facility] CALCIUM 9.0 8.7 - 10.5 mg/dL 11/11/2024 11:03 AM [facility] T BILI 0.9 0.2 - 1.2 mg/dL 11/11/2024 11:03 AM [facility] SGOT (AST) 68(H) <43 U/L 11/11/2024 11:03 AM [facility] SGPT (ALT) 27 <56 U/L 11/11/2024 11:03 AM [facility] ALKALINE PHOSPHATASE 55 40 - 150 U/L 11/11/2024 11:03 AM [facility] GFR, ESTIMATED 41(L) >=60 11/11/2024 11:03 AM [facility] Comment: Creatinine Clearance is the preferred criteria for selecting drug dose adjustments in renally impaired patients. The GFR is provided as additional pertinent clinical information. GFR is reported in mL/min/1.73 sq m. Calculation based on the Chronic Kidney Disease Epidemiology Collaboration (CKD- EPI) equation refit without adjustment for race. GFR, EST. 46(L) >=60 025 11:03 AM [facility] GFR, EST. NONAFRICAN 38(L) >=60 11/11/2024 11:03 AM CDT [facility] Blood No Phlebotomy Charged / Unknown 11/11/2024 8:30 AM CDT 11/11/2024 10:17 AM CDT us Nikolas Arnett DO CHEMISTRY ORDERABLES Final Resul t [facility] [address] [place] [address] documented in this encounter Visit Diagnoses Diagnosis Anemia, unspecified documented in this encounter
--- OUTSIDE RECORDS SUMMARY | 2025-01-22 13:22 | XMS_ITS | Clinical Summary ---
Author Organization [facility] Address [address] [place] [address] Phone Care Team Providers Care Financial Processing Clerk Name Role Phone Yannick Umanzor DO Primary [...] 0.03 mg/spray spray, metered, non-aerosol Administer 1 [place] in each nostril 2 times daily. 4 Active Wegovy 0.25 mg/0.5 mL Pen Injector 0.25 mg by See Admin Instructions route every 7 days. 4 Active Active Problems Problem Noted Date Diagnosed Date Monoclonal gammopathy of unknown significance Encounters Date Type Department Care Team Description 01/10/2025 External Device Data STL ABSTRACTION Provider, Abstract 01/09/2025 External Device Data STL ABSTRACTION Provider, [...] on file Legal Sex Female 4:51 AM CUSTOM GARMENT DESIGNER Gender Identity Not on file Sexual Orientation Not on file Last Filed Vital Signs Vital Sign Reading Time Taken Comments Blood Pressure 126/69 08/02/2024 1:21 PM CUSTOM GARMENT DESIGNER Pulse 77 08/02/2024 1:21 PM CUSTOM GARMENT DESIGNER Temperature 36.8 C (98.2 F) 08/02/2024 1:21 PM CUSTOM GARMENT DESIGNER Respiratory Rate 15 08/02/2024 1:21 PM CUSTOM GARMENT DESIGNER Oxygen Saturation 94% 08/02/2024 1:2 1 PM CUSTOM GARMENT DESIGNER Inhaled Oxygen Concentration - - Weight 83.3 kg (183 lb 9.6 oz) 08/02/2024 1:21 PM CUSTOM GARMENT DESIGNER patient verbally confimed that she is trying to lose weight Height 162.6 cm (5' 4) 06/01/2022 8:50 AM CDT Body Mass Index 31.51 06/01/2022 8:50 AM CDT Plan of Treatment Upcoming Encounters Date Type Department Care Team (Late st Contact Info) Description 09/05/2025 10:00 AM CUSTOM GARMENT DESIGNER Office Visit [facility] Oncology and Hematology - [place] [address] [facility] [address] [place] [address] Saul Perez MD [address] [place] [address] Health Maintenance Due Date Last [...] 2031 Insurance MEDICARE PART A AND B [facility] BENEFIT PLANS MEDICARE PART A AND B [facility] BENEFIT PL[facility] Advance Directives For more information, please contact: [phone] * Full Code (Latest Code Status on File) Date Activated Date Inactivated Comments 08/27/2014 7:51 AM 08/28/2014 8:33 AM * Full Code Date Activated Date Inactivated Comments 08/27/2014 5:59 AM 08/27/2014 7:51 AM Care Teams Financial Processing Clerk Relationship Specialty Start Date End Date Yannick Umanzor DO [address] [address] PCP - General Internal Medicine 11/07/21
--- NOTE | 2025-01-22 13:36 | ED.GENADULT ---
HPI - General Adult General Chief complaint: Dental/Oral Stated complaint: R sided mouth pain Time Seen by Provider: 01/22/25 12:04 History of Present Illness HPI narrative: Patient is a 69-year-old female who presents ER with pain to her mouth. She underwent dental extraction of tooth 6. And 11 ostomy. She has pain in those areas. No drainage. No reports of fever. No facial swelling. Related Data Home Medications ?Medication ?Instructions ?Recorded ?Confirmed ?Last Taken ?Type duloxetine 60 mg capsule,delayed 60 mg PO Q12H 01/21/21 12/20/24 Unknown History release (Cymbalta) cholecalciferol (vitamin D3) 250 250 mcg PO 1200 01/02/22 12/20/24 Unknown History mcg (10,000 unit) capsule trazodone 100 mg tablet 200 mg PO QHS PRN Insomnia 01/02/22 12/20/24 Unknown History ascorbic acid (vitamin C) 1,000 mg 2 g PO 1200 09/08/23 12/20/24 Unknown History chewable tablet aspirin 81 mg tablet,delayed 81 mg PO DAILY 09/08/23 12/20/24 Unknown History release bupropion HCl 150 mg 24 hr tablet, 150 mg PO HS 09/08/23 12/20/24 Unknown History extended release carvedilol 12.5 mg tablet 12.5 mg PO Q12H 09/08/23 12/20/24 Unknown History ferrous sulfate 325 mg (65 mg 325 mg PO 1200 09/08/23 12/20/24 Unknown History iron) tablet lamotrigine 200 mg tablet 200 mg PO Q12H 09/08/23 12/20/24 Unknown History oxybutynin chloride 10 mg 10 mg PO DAILY 09/08/23 12/20/24 Unknown History tablet,extended release 24 hr sertraline 100 mg tablet 100 mg PO Q12H 09/08/23 12/20/24 Unknown History vitamin B complex 2 tablet PO 1200 09/08/23 12/20/24 Unknown History varenicline tartrate 0.03 mg/spray 0.03 mg intranasal Q12H 03/14/24 12/20/24 Unknown History metered nasal spray (Tyrvaya) acetaminophen 325 mg capsule 650 mg PO Q4H PRN pain (scale 12/20/24 12/20/24 Unknown History score 1-3) loperamide 2 mg tablet 2 mg PO QID PRN diarrhea 12/20/24 12/20/24 Unknown History (Anti-Diarrheal (loperamide)) Allergies Allergy/AdvReac Type Severity Reaction Status Date / Time acyclovir (From Zovirax) Allergy Severe Hives Verified 01/11/25 04:52 Iodinated Contrast Media Allergy Intermediate Rash Verified 01/11/25 04:52 omeprazole (From Prilosec) AdvReac Intermediate hyperventil Verified 01/11/25 04:52 ate Review of Systems Review of Systems: All systems reviewed & are unremarkable except as noted in HPI and below Constitutional: Constitutional: Reports no additional constitutional complaints ENT: Reports system reviewed and no additional complaints, except as documented Cardiovascular: Cardiovascular: Reports no additional cardiovascular complaints Respiratory: Respiratory: Reports no additional respiratory complaints [facility] Past Medical History Medical History CKD (chronic kidney disease) Nocturnal oxygen desaturation Body mass index (BMI) of 40.1-44.9 in adult Deafness in left ear JERED (iron deficiency anemia) Lymphedema Dysuria Fracture of left upper extremity Distal radius fracture, left July 2020 Shortness of Breath Decreased diffusion capacity History of tobacco abuse Exercise hypoxemia Brain tumor HTN (hypertension) Obstructive sleep apnea on CPAP Bipolar 1 disorder SIMEON (obstructive sleep apnea) With CPAP use GERD (gastroesophageal reflux disease) Depression Anxiety Surgical History Surgical History History of bladder suspension procedure March 2017 Hx of tonsillectomy History of brain surgery 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 She has 3 children. She is disabled. She quit smoking 5 years ago. The patient denies any marijuana alcohol or illicit drugs. 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 Primary care physician: Dr. Yannick Umanzor Code status: Full code Smoking packs per day: 1 Smoking cigarettes per day: 20.0 Years smoked: 40 Smoking pack-years: 40.00 Smoking status: Former smoker Tobacco type: cigarettes Second hand tobacco smoke exposure: No Smoking end date: 08/23/14 Alcohol intake: never Substance use: never Substance use type: does not use Do You Feel Safe in your Home?: Yes Lack of Transportation: No Lack of Food: Never True Current Housing: I Have Housing Concerned About Future Housing: No Difficulty Paying Gas/Electric Bills: No Difficulty Paying for Meds: No Currently Unemployed: No Education: Associate Degree Difficulty w/ Childcare or Family Care: No Living arrangements: with family Additional living arrangements comments: 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 Gender identity (if verbalized by the patient): Female Spiritual care concerns: No Exam Narrative: GENERAL: Well-appearing, well-nourished, and in no acute distress. HEAD: Normocephalic, atraumatic. ENT: Mucous membranes moist. Normal hard and soft palate. Yellow granular tissue in the areas of dental extraction. No purulent drainage or discernible abscess. NECK: Supple. CHEST: Clear to auscultation. No respiratory distress. HEART: Regular rate and rhythm. Normal peripheral pulses. EXTREMITIES: Normal range of motion. No edema. NEURO: Alert and oriented x3. PSYCH: Normal mood and affect. Course Course Emergency Course: Discharge home with oral antibiotics and chlorhexidine mouthwash. Follow up with her dentist. Concerning for developing infection. Vital Signs Vital signs: Vital Signs Temperature 98.1 F 01/22/25 12:01 Pulse Rate 75 01/22/25 12:01 Respiratory Rate 16 01/22/25 12:01 Blood Pressure 138/60 01/22/25 12:01 Pulse Oximetry 100 01/22/25 12:01 Temperature 98.1 F 01/22/25 12:01 Pulse Rate 75 01/22/25 12:01 Respiratory Rate 16 01/22/25 12:01 Blood Pressure 138/60 01/22/25 12:01 Pulse Oximetry 100 01/22/25 12:01 Medical Decision Making Vital Signs Vital Signs: Vital Signs Temperature 98.1 F 01/22/25 12:01 Pulse Rate 75 01/22/25 12:01 Respiratory Rate 16 01/22/25 12:01 Blood Pressure 138/60 01/22/25 12:01 Pulse Oximetry 100 01/22/25 12:01 Temperature 98.1 F 01/22/25 12:01 Pulse Rate 75 01/22/25 12:01 Respiratory Rate 16 01/22/25 12:01 Blood Pressure 138/60 01/22/25 12:01 Pulse Oximetry 100 01/22/25 12:01 Discharge Plan Discharge Clinical Impression: Dry tooth socket Patient Disposition: Home Condition: Stable Instructions: Antibiotic Form, Dry Socket (ED) Additional Instructions: Follow up with your dentist. Return to the ER if you cannot breathe, you cannot swallow, or you have other concerns. Patient Language: Tajik Prescriptions: New chlorhexidine gluconate 0.12 % mouthwash 15 ml mucous membrane BID Qty: 300 0RF amoxicillin-pot clavulanate 875-125 mg tablet 1 tablet PO Q12H Qty: 20 0RF hydrocodone-acetaminophen 5-325 mg tablet 1 tablet PO Q6H PRN (Reason: pain) Qty: 12 0RF No Action duloxetine [Cymbalta] 60 mg capsule,delayed release(DR/EC) 60 mg PO Q12H Tyrvaya 0.03 mg/spray spray, metered, non-aerosol 0.03 mg intranasal Q12H Rx Instructions: administer into each nostril; approximately 12 hours apart cholecalciferol (vitamin D3) 250 mcg (10,000 unit) capsule 250 mcg PO 1200 trazodone 100 mg tablet 200 mg PO QHS PRN (Reason: Insomnia) acetaminophen 325 mg capsule 650 mg PO Q4H PRN (Reason: pain (scale score 1-3)) loperamide [Anti-Diarrheal (loperamide)] 2 mg tablet 2 mg PO QID PRN (Reason: diarrhea) cephalexin 500 mg Capsule 500 mg PO Q12HR Qty: 10 0RF lorazepam 2 mg tablet 2 mg PO Q12H Qty: 10 0RF carvedilol 12.5 mg tablet 12.5 mg PO Q12H sertraline 100 mg tablet 100 mg PO Q12H ferrous sulfate 325 mg (65 mg iron) Tablet 325 mg PO 1200 ascorbic acid (vitamin C) 1,000 mg Tablet,Chewable 2 g PO 1200 vitamin B complex Tablet,Chewable 2 tablet PO 1200 lamotrigine 200 mg tablet 200 mg PO Q12H oxybutynin chloride 10 mg tablet extended release 24hr 10 mg PO DAILY bupropion HCl 150 mg tablet extended release 24 hr 150 mg PO HS aspirin 81 mg Tablet,Delayed Release (Dr/Ec) 81 mg PO DAILY (DME) Overnight Ox See Rx Instructions .Route .MEDSUPPLY Qty: 1 0RF Rx Instructions: Overnight Oximetry 4 L/Min BIPAP DX Code: G47.33 Length of Need: Lifetime DME:Nory Cannon MDNPI: [id number] albuterol sulfate 90 mcg/actuation HFA aerosol inhaler 1 - 2 puff inhalation Q4-6H PRN (Reason: shortness of breath or wheezing) Qty: 8.5 2RF pantoprazole 40 mg tablet,delayed release (DR/EC) See Rx Instructions .ROUTE .COMPLEX Qty: 90 1RF Dose Instruction: TAKE 1 TABLET BY MOUTH EVERY DAY IN THE MORNING Rx Instructions: TAKE 1 TABLET BY MOUTH EVERY DAY IN THE MORNING amlodipine 5 mg tablet 5 mg PO HS Qty: 90 0RF Wegovy 1 mg/0.5 mL pen injector 1 mg subcut Q7D Qty: 2 0RF hydrochlorothiazide 12.5 mg tablet 12.5 mg PO QAM Qty: 90 1RF Follow-up/Referrals: Yannick Umanzor DO [Primary Care Provider] - 1 Week
--- NOTE | 2025-01-22 14:08 | PC.NURSE ---
NO SHUTTLE AVAILABLE FOR [facility]. LEFT MESSAGE WITH ED [phone] FOR POTENTIAL TRANSPORTATION
[2025-01-22] MEDS: HYDROcodone/acetaminophen (*CRX) 5-325 MG TABLET 1 TAB PO (14:11)
[2025-01-22 14:15] VITALS: BP 125/59; PULSE 74; RESP 16; O2SAT 100
[2025-01-22 14:30] VITALS: BP 130/68; PULSE 70; RESP 16; O2SAT 100
--- NOTE | 2025-01-22 14:50 | PC.NURSE ---
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 REQUESTS US TO CALL AMBULANCE FOR TRANSPORT PT BACK TO [facility].
== END 2025-01-22 15:30 | disposition home or self-care (01) ==
PROVIDERS: Emergency Provider Emergency Medicine; PCP Internal Medicine
DX: M27.3 Alveolitis of jaws (principal); I12.9 Hypertensive chronic kidney disease with stage 1 through stage 4 chronic kidney disease, or unspecified chronic kidney disease; N18.9 Chronic kidney disease, unspecified; G47.30 Sleep apnea, unspecified; K21.9 Gastro-esophageal reflux disease without esophagitis; F32.A Depression, unspecified; F41.9 Anxiety disorder, unspecified; Z87.891 Personal history of nicotine dependence; Z98.84 Bariatric surgery status
CPT/HCPCS: 99283; A9270

== ENCOUNTER 2025-02-07 13:07 | Inpatient (IN) | payer OTHER, MEDICARE, SELFPAY ==
[2025-02-07] VITALS (12 sets, daily range): BP systolic 72–120; BP diastolic 38–91; PULSE 20–86; RESP 18–23; TEMP 36.3–37.4; O2SAT 89–99; BMI 37.0
--- NOTE | ~2025-02-07 | XR_ITS ---
EXAMINATION: XR chest 1V portable DATE: 02/17/2025 05:47 INDICATION: Shortness of breath TECHNIQUE: frontal view of the chest was obtained. COMPARISON: Chest radiograph dated 02/12/2025 FINDINGS: Again seen are scattered patchy and bandlike opacities in both lungs with improvement in the left low er lung zone. No pleural effusion or pneumothorax. Heart size is normal. IMPRESSION: 1. Patchy bilateral lung disease which could represent pneumonia and/or atelectasis with some improve ment in the left lower lung zone. Reviewed, dictated and finalized at location A. IMPRESSION: 1. Patchy bilateral lung disease which could represent pneumonia and/or atelect asis with some improvement in the left lower lung zone.
--- NOTE | ~2025-02-07 | US_ITS ---
EXAMINATION: US venous doppler [facility] DATE: 02/20/2025 21:42 INDICATION: Swelling TECHNIQUE: Grayscale ultrasound images without and with compression and Doppler ultrasound images of the bilateral lower extremity veins were obtained. COMPARISON: None. FINDINGS: The visualized portions of right common femoral vein, profunda (deep) femoral vein, femoral vein, pop liteal vein, and greater saphenous vein outflow are patent. Noncompressibility and absence of flow is identified within the right posterior tibial and peroneal v eins consistent with thrombus. The visualized portions of left common femoral vein, profunda femoral vein, femoral vein, popliteal v ein and greater saphenous vein outflow are patent. Noncompressibility and absence of flow is identified within the right posterior tibial and peroneal v eins consistent with thrombus. IMPRESSION: Deep venous thrombosis within the bilateral posterior tibial and peroneal veins, as detailed above. Remainder of the examination is unremarkable. Reviewed, dictated and finalized at location [] IMPRESSION: Deep venous thrombosis within the bilateral posterior tibial and peroneal veins , as detailed above. Remainder of the examination is unremarkable.
--- NOTE | ~2025-02-07 | US_ITS ---
EXAMINATION: US renal BI DATE: 02/19/2025 12:36 INDICATION: Renal failure TECHNIQUE: Multiple ultrasound grayscale images of the kidneys were obtained. COMPARISON: None. FINDINGS: The right kidney measures 10.4 x 5.1 x 5.1 cm. The left kidney measures 10.4 x 5.2 x 5.3 cm. The kidn eys demonstrate normal echogenicity. There is no hydronephrosis in either kidney. No stones identifi ed. The bladder is decompressed which limits evaluation. IMPRESSION: 1. Normal kidneys without hydronephrosis. Reviewed, dictated and finalized at location B.
--- NOTE | ~2025-02-07 | XR_ITS ---
Portable chest x-ray Comparison: 02/18/2025 Clinical History: Shortness of breath Findings: Small right pleural effusion present. Probable mild patchy pulmonary edema pattern bilater ally. Cardiomediastinal silhouette is stable. Bones and soft tissues are unremarkable. Impression: Probable patchy mild pulmonary edema pattern versus patchy bilateral pneumonia. Correlate clinically. Small right pleural effusion. Reviewed, dictated and finalized at [facility]. Impression: Probable patchy mild pulmonary edema pattern versus patchy bilateral pneumonia. Correlate clinically. Small right pleural effusion.
--- NOTE | ~2025-02-07 | CT_ITS ---
CT brain wo con Ordering provider: Jp Barron MD History: 69 years Female with . AMS, hx of SDH . Comparison: February 07, 2025 Technique: CT of the head without contrast. Radiation reduction technique utilized.The dose-length pr oduct was 671.51 mGy-cm. FINDINGS: BRAIN PARENCHYMA AND CSF SPACES: Focal hyperdensity seen in the right frontal area measuring 7 mm whi ch may be artifactual but a small hematoma cannot be excluded. This density is not seen in the previo us study. Mild leukoaraiosis and diffuse cortical atrophy. Mild atheromatous disease. No midline shif t, or mass effect. The brain parenchyma and CSF spaces are otherwise normal. VISUALIZED PARANASAL SINUSES: Well bilateral maxillary sinus. Bilateral ethmoid and sphenoid sinus di sease. MASTOIDS: Well aerated. BONES: Postoperative changes in the right occipital bone. The bones appear intact. SOFT TISSUES: Visualized nasopharynx is normal. Superficial soft tissues are normal. IMPRESSION: Highly suggestive small epidural hematoma in the right frontal lobe area measuring 7 mm. Follow-up ad vised. Physician: Jp Barron MD Was notified with the result of the patient at 4:25 PM on February 23, 2025 Reviewed, dictated and finalized at location A. IMPRESSION: Highly suggestive small epidural hematoma in the right frontal lobe area measur ing 7 mm. Follow-up advised. Physician: Jp Barron MD Was notified with the result of the patient at 4:25 PM on February 23, 2025
--- NOTE | ~2025-02-07 | XR_ITS ---
XR chest 1V portable Ordering provider: Dionisio Greenfield MD History: 69 years Female with . Y . Comparison: February 11, 2025 FINDINGS: MEDIASTINUM: The cardiac silhouette is slightly enlarged. LUNGS: No effusions or pneumothorax. Opacification in both perihilar and lower lobe areas more on the left side. OTHER: No free air under the diaphragm. IMPRESSION: Bilateral pneumonia. Underlying pulmonary edema cannot be excluded Reviewed, dictated and finalized at location A.
--- NOTE | ~2025-02-07 | XR_ITS ---
XR chest 1V portable Ordering provider: Danette Harris APRN History: 69 years Female with . hypoxia . Comparison: December 20, 2024 FINDINGS: MEDIASTINUM: The cardiac silhouette is moderately enlarged. Congestive jennifer. LUNGS: No effusions or pneumothorax. Bilateral interstitial thickening suggestive of pulmonary edema versus pneumonitis. Opacification in the left lung base is seen which may indicate atelectasis versus pneumonia. OTHER: No free air under the diaphragm. IMPRESSION: Cardiomegaly with cardiac decompensation and pulmonary edema. Pneumonitis is not excluded. Left basil ar atelectasis versus pneumonia. Reviewed, dictated and finalized at location A. IMPRESSION: Cardiomegaly with cardiac decompensation and pulmonary edema. Pneumonitis is no t excluded. Left basilar atelectasis versus pneumonia.
--- NOTE | ~2025-02-07 | CT_ITS ---
History: Altered mental status with history of small subdural hemorrhage on the 02/23/2025 at 3:53 PM w hich had decreased in size on imaging performed 02/23/2025 at 9:36 PM PROCEDURE: CT head without contrast. COMPARISON: 02/23/2025 TECHNIQUE: Axial imaging of the head performed from the skull base to the vertex without IV contrast. Sagittal a nd coronal reformations obtained. Examination is somewhat limited secondary to motion artifact DLP: 1362 mGy-cm FINDINGS: The ventricles are normal in size, shape and position. There is no mass, mass effect or midline shift. Redemonstration of a focus of increased attenuation along the right frontoparietal lobe, high in the convexity now measuring 4.8 mm, decreased in size from original examination in the anterior to service order dispatcher ior dimension as well as the medial to lateral dimension. No surrounding vasogenic edema for which artifactual hyperattenuation is suspected. Air-fluid levels within the bilateral maxillary sinuses. Nasogastric tube coursing through the right nares. Remaining paranasal sinuses are unremarkable. The mastoid air cells are well aerated. No acute displaced fractures within the overlying cranium. Impression: Redemonstration of a focus of increased attenuation along the right frontal parietal lobe, high in th e convexity, decreased in size from original examination which may be artifactual in origin. No surrounding vasogenic edema. No midline shift. If clinically able, MRI examination is suggested as follow-up. Inflammatory sinus disease. Reviewed, dictated and finalized at location A. Impression: Redemonstration of a focus of increased attenuation along the right frontal par ietal lobe, high in the convexity, decreased in size from original examination which may be artifactual in origin. No surrounding vasogenic edema. No midline shift. If clinically able, MRI examination is suggested as follow-up. Inflammatory sinus disease.
--- NOTE | ~2025-02-07 | XR_ITS ---
MODIFIED ESOPHAGRAM HISTORY: Coughing after taking pills TECHNIQUE: Modified barium esophagram was performed on 02/14/2025. I administered fluoroscopy and perf ormed the exam with speech pathologist. Patient was seated for lateral fluoroscopic imaging for naresh stion of thin liquids, pudding, solids and quantified amounts, followed by thin liquids in uncontroll ed amounts. This was recorded on tape. A single fluoroscopic spot image was also recorded. The DAP fo r this procedure was 0.548 Gycm2. The amount of fluoroscopy time used during this procedure was 0.6 m inutes. FINDINGS: Oral stage: Adequate function. Pharyngeal stage: Reduced tongue base retraction. There is laryngeal penetration without aspiration.. Cervical/esophageal stage: Adequate function. IMPRESSION: Mild pharyngeal dysphagia with laryngeal penetration without aspiration. Please correlat e with speech pathologist findings and specific feeding recommendations. Reviewed, dictated and finalized at location A. IMPRESSION: Mild pharyngeal dysphagia with laryngeal penetration without aspira tion. Please correlate with speech pathologist findings and specific feeding r ecommendations.
--- NOTE | ~2025-02-07 | CT_ITS ---
History: Altered mental status PROCEDURE: CT head without contrast. COMPARISON: 01/11/2025 TECHNIQUE: Axial imaging of the head performed from the skull base to the vertex without IV contrast. Sagittal a nd coronal reformations obtained. DLP: 681 mGy-cm FINDINGS: Exvacuodilatation of the posterior horn of the right lateral ventricle is redemonstrated. The remainder of the ventricles are enlarged. The dilatation of the ventricles is proportional to the degree of sulcal prominence, not uncommon in the senescent brain. Decreased attenuation is identified within the periventricular white matter, likely secondary to micr ovascular ischemic disease, in a patient of this age. There is no mass, mass effect or midline shift. There is no abnormal extra-axial fluid collection or intracranial hemorrhage. Visualized paranasal sinuses are clear. The mastoid air cells are well aerated. Postcraniotomy defect. No acute displaced fractures within the overlying cranium. Impression: No acute intracranial hemorrhage or suspicious mass effect. Reviewed, dictated and finalized at location A. Impression: No acute intracranial hemorrhage or suspicious mass effect.
--- NOTE | ~2025-02-07 | US_ITS ---
LEFT UPPER EXTREMITY VENOUS ULTRASOUND Ordering provider: Perico Bautista MD History: . swelling . Comparison: None. FINDINGS: --JUGULAR: Patent and free of thrombus. Normal compressibility, phasic flow and augmentation. --SUBCLAVIAN: Patent and free of thrombus. Normal compressibility, phasic flow and augmentation. --AXILLARY: Patent and free of thrombus. Normal compressibility, phasic flow and augmentation. --BRACHIAL: Patent and free of thrombus. Normal compressibility, phasic flow and augmentation. --CEPHALIC: Patent and free of thrombus. Normal compressibility, phasic flow and augmentation. --BASILIC: Patent and free of thrombus. Normal compressibility, phasic flow and augmentation. --RADIAL: Patent and free of thrombus. Normal compressibility, phasic flow and augmentation. --ULNAR: Patent and free of thrombus. Normal compressibility, phasic flow and augmentation. IMPRESSION: Negative left upper extremity venous US. No deep vein thrombosis. RIGHT UPPER EXTREMITY VENOUS ULTRASOUND Ordering provider: Perico Bautista MD History: . swelling . Comparison: None. FINDINGS: --JUGULAR: Patent and free of thrombus. Normal compressibility, phasic flow and augmentation. --SUBCLAVIAN: Patent and free of thrombus. Normal compressibility, phasic flow and augmentation. --AXILLARY: Patent and free of thrombus. Normal compressibility, phasic flow and augmentation. --BRACHIAL: Patent and free of thrombus. Normal compressibility, phasic flow and augmentation. --CEPHALIC: Patent and free of thrombus. Normal compressibility, phasic flow and augmentation. --BASILIC: Patent and free of thrombus. Normal compressibility, phasic flow and augmentation. --RADIAL: Patent and free of thrombus. Normal compressibility, phasic flow and augmentation. --ULNAR: Patent and free of thrombus. Normal compressibility, phasic flow and augmentation. IMPRESSION: Negative right upper extremity venous US. No deep vein thrombosis. Reviewed, dictated and finalized at location A. IMPRESSION: Negative left upper extremity venous US. No deep vein thrombosis. RIGHT UPPER EXTREMITY VENOUS ULTRASOUND Ordering provider: Perico Bautista MD History: . swelling . Comparison: None. FINDINGS: --JUGULAR: Patent and free of thrombus. Normal compressibility, phasic flow and augmentation. --SUBCLAVIAN: Patent and free of thrombus. Normal compressibility, phasic flow and augmentation. --AXILLARY: Patent and free of thrombus. Normal compressibility, phasic flow an d augmentation. --BRACHIAL: Patent and free of thrombus. Normal compressibility, phasic flow a nd augmentation. --CEPHALIC: Patent and free of thrombus. Normal compressibility, phasic flow an d augmentation. --BASILIC: Patent and free of thrombus. Normal compressibility, phasic flow an d augmentation. --RADIAL: Patent and free of thrombus. Normal compressibility, phasic flow and augmentation. --ULNAR: Patent and free of thrombus. Normal compressibility, phasic flow and augmentation.
--- NOTE | ~2025-02-07 | US_ITS ---
EXAM: RENAL ULTRASOUND HISTORY: EJRRY COMPARISON: None FINDINGS: RIGHT KIDNEY: 9.7 x 5.0 x 4.8 cm. The parenchyma of the right kidney is unremarkable in echogenicity. No hydronephrosis or bulky renal calculi. LEFT KIDNEY: 10.2 x 4.5 x 4.3 cm No hydronephrosis or renal calculi. The parenchyma of the left kidney is unremarkable in echogenicity. BLADDER: Only minimally distended, but otherwise unremarkable. IMPRESSION: No hydronephrosis or renal calculi. Parenchyma of the bilateral kidneys are unremarkable. Reviewed, dictated and finalized at location A.
--- NOTE | ~2025-02-07 | CT_ITS ---
Clinical Indication: Leukocytosis CT Scan of the Chest, Abdomen, and Pelvis without Contrast: Technique: Contiguous sections were acquired throughout the chest, abdomen, and pelvis without IV con trast administration. Dose reduction technique was used on this scan by utilizing automated exposure control and iterative reconstruction technique. The dose-length product (DLP) was 179.70 mGy-cm. Comparison: 12/23/2024 Findings: There is no evidence of any significant mediastinal, hilar or axillary lymphadenopathy. The mediastin al soft tissues appear normal. No pericardial effusion. Small bilateral pleural effusions are increased from prior exam, with bibasilar atelectatic change. T here is also new airspace consolidation and groundglass opacity throughout both lungs, which could re flect pulmonary edema versus pneumonia. The liver, spleen, pancreas, adrenals and kidneys are within normal limits. Gallbladder absent. There is minimal nonspecific inflammatory change and/or stranding/fluid in the perihepatic and perisplenic regions, as well as in the peripancreatic region. No evidence of aortic aneurysm. No lymphadenopath y. No bowel obstruction or bowel wall thickening. There is no evidence to suggest acute appendicitis. Urinary bladder collapsed around a Castro catheter. Small calcified fibroid present. Small amount of p elvic ascites present. Impression: Airspace consolidation groundglass opacity throughout both lungs. Correlate for interval element of p ulmonary edema versus bilateral pneumonia. Increasing small bilateral pleural effusions with bibasilar atelectatic change. New inflammatory change and/or fluid in the upper abdomen, suggestive of acute pancreatitis. Correlat e clinically. Reviewed, dictated and finalized at [facility]. Impression: Airspace consolidation groundglass opacity throughout both lungs. Correlate for interval element of pulmonary edema versus bilateral pneumonia. Increasing small bilateral pleural effusions with bibasilar atelectatic change. New inflammatory change and/or fluid in the upper abdomen, suggestive of acute pancreatitis. Correlate clinically.
--- NOTE | ~2025-02-07 | CT_ITS ---
CT brain wo con Ordering provider: Jp Barron MD History: 69 years Female with . SDH . Comparison: February 23, 2025. Technique: CT of the head without contrast. Radiation reduction technique utilized.The dose-length pr oduct was 1362 mGy-cm. FINDINGS: BRAIN PARENCHYMA AND CSF SPACES: The previously seen small hypodensity in the right frontal lobe area is again demonstrated. No change from previous examination seen. Mild leukoaraiosis and diffuse yasir ical atrophy. Mild atheromatous disease. No midline shift, mass effect or hemorrhage. The brain parenchyma and CSF spaces are otherwise norm al. VISUALIZED PARANASAL SINUSES: Bilateral maxillary, ethmoid and sphenoid sinus disease. MASTOIDS: Well aerated. BONES: Postoperative changes in the right occipital bone. Otherwise, The bones appear intact. SOFT TISSUES: Visualized nasopharynx is normal. Superficial soft tissues are normal. IMPRESSION: No change from previous examination done on the same day. Reviewed, dictated and finalized at location A.
--- NOTE | ~2025-02-07 | XR_ITS ---
Exam: Abdomen 1V HISTORY: ng placement verification COMPARISON: Reference is made to a CT examination of the chest abdomen and pelvis dated 02/20/2025 TECHNIQUE: Supine images of the lower chest and upper abdomen FINDINGS: Nasogastric tube extends into the abdomen, just to the left of midline, presumably within the proxima l most stomach, to the left of multiple clips, presumably within the nonbypassed portion. IMPRESSION: Nasogastric tube in good position and ready for immediate use. Reviewed, dictated and finalized at location A.
--- NOTE | ~2025-02-07 | US_ITS ---
EXAM: ABDOMEN ULTRASOUND HISTORY: pancreatitis; GB absent COMPARISON: Reference is made to a CT examination of the chest abdomen and pelvis dated 02/20/2025 FINDINGS: LIVER: The liver is unremarkable in echogenicity and size. The portal vein is patent, demonstrating hepatopedal flow. GALLBLADDER: Surgically absent BILE DUCTS: Common bile duct measures 5.3mm. PANCREAS: Limited evaluation of the pancreas secondary to overlying bowel gas IMPRESSION: Unremarkable limited ultrasound examination of the right upper quadrant, as detailed above. Reviewed, dictated and finalized at location A. IMPRESSION: Unremarkable limited ultrasound examination of the right upper quadrant, as det zain above.
--- NOTE | ~2025-02-07 | XR_ITS ---
Portable chest x-ray Comparison: 02/17/2025 Clinical History: Cough Findings: Small bilateral pleural effusions are present. There is patchy bilateral airspace disease. Cardiomediastinal silhouette is stable. Bones and soft tissues are unremarkable. Impression: Patchy bilateral airspace disease could reflect pulmonary/atelectasis versus bilateral pneumonia. Cor relate clinically. Small bilateral pleural effusions. Reviewed, dictated and finalized at [facility]. Impression: Patchy bilateral airspace disease could reflect pulmonary/atelectasis versus bi lateral pneumonia. Correlate clinically. Small bilateral pleural effusions.
[2025-02-07 13:46] LABS: Hematocrit 34.1 % (37.0-47.0); Hemoglobin 11.9 g/dL (12.0-15.0); Immature Granulocyte Percent A 1.2 % (0-0.5); Lymphocytes Absolute Auto 0.89 K/mm3 (0.9-3.2); Mean Corpuscular HGB Conc 34.9 g/dl (32-36); Mean Corpuscular Hemoglobin 31.5 pg (26-34); Mean Corpuscular Volume 90.2 fl (80-100); Nucleated Red Blood Cells Absolute Auto 0.060 K/mm3 (0.0-0.012); Nucleated Red Blood Cells Perc 0.4 % (0.0-0.2); Platelet Count Result 245 k/mm3 (150-375); Red Blood Count 3.78 M/mm3 (4.2-5.4); White Blood Count 15.4 K/mm3 (4.5-10.0)
[2025-02-07] MEDS: SODIUM CHLORIDE 0.9% IV 1,000 ML 999 ML IV CONT (13:56)
[2025-02-07 14:16] LABS: Alanine Aminotransferase 46 U/L (6-35); Albumin Level 3.1 g/dL (3.5-5.1); Alkaline Phosphatase 101 U/L (38-126); Anion Gap 10 mmol/L (4-12); Aspartate Amino Transferase 57 U/L (14-36); Bilirubin,Total 1.3 mg/dL (0.2-1.3); Blood Urea Nitrogen 45 mg/dL (7-17); Calcium 8.7 mg/dL (8.4-10.2); Carbon Dioxide 28 mmol/L (22-30); Chloride 95 mmol/L (98-107); Estimated Glomerular Filt Rate 12; Glucose 130 mg/dL (65-110); Sodium 133 mmol/L (137-145); Total Protein 6.0 g/dL (6.3-8.2)
[2025-02-07 14:17] LABS: Potassium < 2.0 mmol/L (3.4-5.0)
[2025-02-07 14:54] LABS: Add Urine Microscopic? YES; Appearance Urine Cloudy (Clear); Budding Yeast Urine Present /hpf; Glucose Urine UA Negative (Negative); Leukocyte Esterase Ur 2+ LEU/UL (Negative); Need Manual Microscopic Reviewed; Nitrate Urine Negative (Negative); Non Pathogenic Casts >20; Specific Grav Ur 1.023 (1.001-1.035)
[2025-02-07] MEDS: POTASSIUM CHLORIDE 20 MEQ ER TABLET 40 MEQ PO (15:04)
[2025-02-07] MEDS: POTASSIUM CHLORIDE INJ 40 MEQ in SODIUM CHLORIDE 0.9% IV 500 ML 130 MEQ IVPB ×2 (15:06→21:11)
--- NOTE | 2025-02-07 15:20 | PC.NURSE ---
spoke with , Julio C Su, requesting to have an update called to him if anything changes - [phone]
[2025-02-07 15:25] LABS: Toxigenic C. Diff NEGATIVE (NEGATIVE)
--- OUTSIDE RECORDS SUMMARY | 2025-02-07 15:25 | XMS_ITS | Clinical Summary ---
Author Organization [facility] Address [address] [place] [phone] Phone Care Team Providers Care Chief Compliance Officer Name Role Phone JavierYannick price Primary Care Provider [phone] Allergies Active Allergy Reactions Criticality Noted Date [...] Act haris ergocalciferol (VITAMIN D-2) 1.25 MG (59669 UT) capsule 12/12/2019 Active Carbonyl Iron 45 [...] 2006 Influenza Vaccine (Season Ended) 2025 Insurance [email or web address] MEDICARE Care Teams Chief Compliance Officer Relationship Specialty Start Date End Date Yannick Umanzor DO [address] [place] [id number] PCP - General Internal Medicine 01/27/21
--- OUTSIDE RECORDS SUMMARY | 2025-02-07 15:25 | XMS_ITS | Clinical Summary ---
Author Organization [facility] [employer] Address [address] [facility] [place] [address] Care Team Providers Care Instructional Technology Coach Name Role Phone Megan Mcwilliams MD Unavailable Kwame Hathaway MD Unavailable [phone] Yannick Umanzor DO Primary Care Provider [phone] Source Comments [facility],non-owned Affiliates and Associated Physician Practices is amultiple site organization consisting of ambulatory clinics and hospital sitesin [place], [place], [place] and [place]. This disclosure is being madepursuant to the Care Everywhere program and may not contain all information available regarding this patient. Last updated 18.[facility] Allergies Active Allergy Reactions [...] mouth every 12 hours For eye infection, chcf administration Discontin ued(List Clean-Up) estradiol (YUVAFEM) 10 [...] Encounters Date Type Department Care Team Description 02/05/2025 Telephone Transitional Care at [address] [address] Aurea Alas, delivery driver/customer service 01/31/2025 Telephone Transitional Care at [address] [address] Breanna Dowell MA Question 01/18/2025 Telephone Transitional Care at [address] [address] Breanna Dowell MA Question 01/17/2025 Telephone [facility] - Centralized Scheduling [address] [place] [phone] Jasmine Chan, MICHAEL-DOCTOR ASSISTANT Reschedule Appointment (01/17-Left message to reschedule Dustin's 02/[address] prior-reschedule to 02/07 or 02/08 per Dustin. No MyChart--Pending-DLM -MS/01/18-Left [id number]) 01/11/2025 4:47 AM CDT - 01/12/2025 9:00 PM CDT Hospital Encounter [facility] ACUTE [address] [place] [address] Nicky Anderson MD Wojcik, Brandon M, MD [...] and heating? Not hard at all 01/12/2025 [facility] Occupat ional [facility] - Occupational Stress [...] any time in the past 12 m [facility], were you homeless or living in a custodial (including now)? No 01/12/2025 Comments No Sex [...] Team (Late st Contact Info) Description 02/08/2025 2:30 PM CDT Office Visit [facility] - Neurosurgery [address] [facility] [place] [address] Julián Reeder MD [address] [facility] [address] [place] [address] Dustin Jasmine A, ANGLE ROLL OPERATOR-DOCTOR ASSISTANT [address] [place] [address] Health Maintenance Due Date Last Done Comments BONE DENSITY TESTING 1955 COLOGUARD (AGES 45-75) - COLON CA SCREENING 1956 CT COLONOGRAPHY - COLON CA SCREENING 1956 FIT - COLON CA SCREENING 1956 FLEX SIG - COLON CA SCREENING 1956 LIPID TESTING 1955 MEDICARE AWV 12 MONTHS 1956 HEPATITIS C SCREENING 04/03/1974 DTAP/TDAP/TD VACCINES [...] this topic Medical Devices Implanted Type Area Stave Inspector Device Identifier Shelf Expiration Date Model / Serial / Lot Sys Ureth Supp Obtryx Midurethral Trnstr Implanted:Qty: 1 on 2017 by Kwame Hathaway MD at [facility] [employer] 01/11/2020 [id number] / / [id number] Graft Tissue Xenform Ftl Bvn Drml Mtrx 7 Implanted:Qty: 1 on 2017 by Kwame Hathaway MD at [facility] [employer] 08/22/2019 [id number] / / [id number] Procedures Procedure Name Priority Date/Time Associated Diagnosis [...] AM CDT ALCOHOL ETHYL BLOOD STAT 01/11/2025 5 :26 AM CDT BASIC METABOLIC PANEL (CALCIUM TOTAL) [...] ENDOSCOPY, COLON, SCREENING Routine 07/22/2020 10:36 AM PACKING AND SHIPPING CLERK from Last 3 Months or Most Recently Relevant to Health Maintenance Results * (ABNORMAL) BASIC METABOLIC PANEL (CALCIUM TOTAL) (01/12/2025 2:42 PM CDT) Only the most recent of4 resultswithin the time period is included. BUN 18 7 - 26 mg/dL 01/12/2025 7:37 PM [facility] Creatinine 1.30(H) 0.56 - 0.96 mg/dL 01/12/2025 7:37 PM [facility] Sodium 139 136 - 145 mmol/L 01/12/2025 7:37 PM [facility] Potassium 3.4(L) 3.5 - 4.5 mmol/L 01/12/2025 7:37 PM [facility] Chloride 103 98 - 107 mmol/L 01/12/2025 7:37 PM [facility] CO2 28 22 - 29 mmol/L 01/12/2025 7:37 PM [facility] Glucose 92 70 - 99 mg/dL 01/12/2025 7:37 PM [facility] Calcium 8.8 8.4 - 10.2 mg/dL 01/12/2025 7:37 PM [facility] Anion Gap 8 6 - 16 01/12/2025 7:37 PM [facility] BUN/Creatinine Ratio 14 7 - 23 01/12/2025 7:37 PM [facility] Osmolality Calculated 290 275 - 295 mOsm/kg 01/12/2025 7:37 PM [facility] eGFR by CKD-EPI 45(L) >=90 mL/min/1.7 3 m2 01/12/2025 7:37 PM [facility] Blood BLOOD SPECIMEN / Unknown Lab Venipuncture / Unknown 01/12/2025 2:42 PM CDT 01/12/2025 7:07 PM T us Key Joseph ANGLE ROLL OPERATOR-DOCTOR ASSISTANT LAB - CHEMISTRY ORDERABLE S Final Result [facility] [address] [place] [address], [facility] [phone] * CARDIAC EKG ORDER (01/12/2025 10:48 AM CDT) Narrative 01/12/2025 10:48 AM CDT Ordered by an unspecified provider. us Scanned Document CARDIAC SERVICES ORDERABLES Fin al Result * BLOOD TYPE VERIFICATION (01/12/2025 8:51 AM CDT) ABO Rh A POS 01/12/2025 9:3 2 AM CDT [facility] BLOOD BANK LAB Blood Bank BLOOD SPECIMEN / Unknown Lab Venipuncture / Unknown 01/12/2025 8:51 AM CDT 01/12/2025 8:56 AM CDT us Nicky Anderson MD LAB - BLOOD BANK ORDERABLES Gaby l Result [facility] BLOOD [facility] LAB [address] [place] [address], [facility] [phone] * (ABNORMAL) CBC W AUTO DIFFERENTIAL (01/12/2025 3:10 AM CDT) Only the most recent of2 resultswithin the time period is included. WBC 11.6(H) 4.0 - 10.7 x10E9/L 01/12/2025 3:56 AM CDT [facility] RBC Count 3.84(L) 3.90 - 5.20 x10E12/L 01/12/2025 3:56 AM T [facility] Hemoglobin 12.1 11.9 - 15.8 g/dL 01/12/2025 3:56 AM CDT [facility] Hematocrit 36.2 34.8 - 46.1 % 01/12/2025 3:56 AM CDT [facility] MCV 94.3 80.0 - 98.0 fL 01/12/2025 3:56 AM CDT [facility] [employer] MCH 31.5 26.7 - 33.6 pg 01/12/2025 3:56 AM CDT [facility] MCHC 33.4 31.7 - 36.3 g/dL 01/12/2025 3:56 AM CDT [facility] RDW-CV 13.8 11.3 - 14.8 % 01/12/2025 3:56 AM [facility] Platelet Count 245 150 - 420 x10E9/L 01/12/2025 3:56 AM [facility] MPV 9.8 7.8 - 11.4 fL 01/12/2025 3:56 AM [facility] Neutrophil % 77.3(H) 41.0 - 74.0 % 01/12/2025 3:56 AM [facility] Lymphocyte % 13.5(L) 17.0 - 47.0 % 01/12/2025 3:56 AM [facility] Monocyte % 8.2 3.0 - 11.0 % 01/12/2025 3:56 AM [facility] Eosinophil % 0.1 0.0 - 7.0 % 01/12/2025 3:56 AM [facility] Basophil % 0.3 0.0 - 1.6 % 01/12/2025 3:56 AM [facility] Immature Granulocytes % 0.6 0.0 - 1.0 % 01/12/2025 3:56 AM [facility] Neutrophil Absolute 8.92(H) 1.60 - 7.50 x10E9/L 01/12/2025 3:56 AM [facility] Lymphocyte Absolute 1.56 1.00 - 4.40 x10E9/L 01/12/2025 3:56 AM [facility] Monocyte Absolute 0.95 0.15 - 1.00 x10E9/L 01/12/2025 3:56 AM [facility] Eosinophil Absolute 0.01 0.00 - 0.60 x10E9/L 01/12/2025 3:56 AM [facility] Basophil Absolute 0.04 0.00 - 0.13 x10E9/L 01/12/2025 3:56 AM [facility] Blood BLOOD SPECIMEN / Unknown Lab Venipuncture / Unknown 01/12/2025 3:10 AM CDT 01/12/2025 3:42 AM T us Julián Reeder MD LAB - HEMATOLOGY ORDERABLES Final Result [address] [address], [facility] [phone] * PHOSPHORUS BLOOD (01/12/2025 3:09 AM CDT) Only the most recent of2 resultswithin the time period is included. Phosphorus 3.8 2.9 - 5.1 mg/dL 01/12/2025 4:17 AM CDT [facility] Blood BLOOD SPECIMEN / Unknown Lab Venipuncture / Unknown 01/12/2025 3:09 AM CDT 01/12/2025 3:43 AM CDT Julián Reeder MD LAB - CHEMISTRY ORDERABLES F inal Result Performing Organization Address City/[facility]/ZIP Co de Phone Number [address] [address], [facility] [phone] * MAGNESIUM BLOOD (01/12/2025 3:09 AM CDT) Only the most recent of2 resultswithin the time period is included. Magnesium 2.2 1.6 - 2.6 mg/dL 01/12/2025 4:17 AM CDT [facility] Blood BLOOD SPECIMEN / Unknown Lab Venipuncture / Unknown 01/12/2025 3:09 AM CDT 01/12/2025 3:43 AM CDT Julián Reeder MD LAB - CHEMISTRY ORDERABLES F inal Result [address] [address], [facility] [phone] * CT Head Wo Contrast (01/11/2025 10:30 [...] identified. Report dictated by Maxime Franks MD, (professor of radiology). ILita MD have personally reviewed and interpreted this examination/study. > Interpreting Provider: Lita Weaver MD on 01/11/2025 5:50 PM Narrative 01/11/2025 5:50 PM CDT PROCEDURE: CT HEAD WO CONTRAST, DATE/TIME OF EXAM: 01/11/2025 10:31 AM, LOCATION [facility] INDICATION: T14.90XA: Trauma ADDITIONAL CLINICAL [...] DATE/TIME OF EXAM: 01/11/2025 10:31 AM, LOCATION [facility] INDICATION: T14.90XA: Trauma ADDITIONAL CLINICAL [...] identified. Report dictated by Maxime Franks MD, (professor of radiology). I, Lita Weaver MD have personally reviewed and interpreted this examination/study. > Interpreting Provider: Lita Weaver MD on 01/11/2025 5:50 PM us Jose Miguel Ratliff MD CT ORDERABLES Final Resul t * EKG 12-Lead (01/11/2025 6:39 AM CDT) Ventricular Rate 71 BPM [facility] QRS Duration ms 92 ms [facility] Q-T Interval ms 336 ms [facility] QTC Calculation (Bezet) 365 ms [facility] Calculated R Adona 15 degrees [facility] Calculated T Adona -174 degrees [facility] Interpretation EKG Likely Sinus rhythm but very poor baseline and artifacts BASELINE ARTIFACT POOR DATA QUALITY, INTERPRETATION MAY BE ADVERSELY AFFECTED NONSPECIFIC ST AND T WAVE ABNORMALITY ABNORMAL ECG NO PREVIOUS ECGS AVAILABLE Confirmed by AIDEE MURILLO MD ([id number]) on 01/14/2025 11:25:11 PM [facility] MUSE 01/11/2025 6:39 AM CDT 01/14/2025 11:25 PM CDT us Nicky Anderson MD ECG ORDERABLES Edited Result - Final [facility] MUSE * CT CHEST ABDOMEN PELVIS W [...] MRI. > Dictated by Greg Dial MD, (professor of radiology). I, Jose Angel Olivas MD have personally reviewed and interpreted this examination/study. > Interpreting Provider: Jose Angel Olivas MD on 01/11/2025 8:08 AM Narrative 01/11/2025 8:08 AM CDT PROCEDURE: CT CHEST ABDOMEN PELVIS W CONT, DATE/TIME OF EXAM: 01/11/2025 5:51 AM, LOCATION [facility] INDICATION: T14.90XA: Trauma COMPARISON: None. [...] CONT, DATE/TIME OF EXAM:01/11/2025 5:51 AM, LOCATION [facility] INDICATION: T14.90XA: Trauma COMPARISON: None. [...] MRI. > Dictated by Greg Dial MD, (professor of radiology). I, Jose Angel Olivas MD [...] pelvis. Report dictated by Jos Silverman MD, (Auto Service Instructor). I, Lilo David MD have personally reviewed and interpreted this examination/study. > Interpreting Provider: Lilo David MD on 01/11/2025 3:57 PM Narrative 01/11/2025 3:57 PM CDT PROCEDURE: CT HEAD WO CONTRAST, CT CERVICAL SPINE WO CONTRAST, CT LUMBAR SPINE WO CONTRAST, CT THORACIC SPINE WO CONTRAST, DATE/TIME OF EXAM: 01/11/2025 5:51 AM, LOCATION [facility] INDICATION: T14.90XA: Trauma EXAMINATION: 1.Computed [...] DATE/TIME OF EXAM: 01/11/2025 5:51 AM, LOCATION [facility] INDICATION: T14.90XA: Trauma EXAMINATION: 1.Computed [...] subdural hematoma (series 8, image 31 and [id number], image 12). Small areas of encephalomalacia within [...] pelvis. Report dictated by Jos Silverman MD, (Auto Service Instructor). Lilo Luciano MD have personally reviewed and [...] pelvis. Report dictated by Jos Silverman MD, (Auto Service Instructor). Lilo Luciano MD have personally reviewed and interpreted this examination/study. > Interpreting Provider: Lilo David MD on 01/11/2025 3:57 PM Narrative 01/11/2025 3:57 PM CDT PROCEDURE: CT HEAD WO CONTRAST, CT CERVICAL SPINE WO CONTRAST, CT LUMBAR SPINE WO CONTRAST, CT THORACIC SPINE WO CONTRAST, DATE/TIME OF EXAM: 01/11/2025 5:51 AM, LOCATION [facility] INDICATION: T14.90XA: Trauma EXAMINATION: 1.Computed [...] DATE/TIME OF EXAM: 01/11/2025 5:51 AM, LOCATION [facility] INDICATION: T14.90XA: Trauma EXAMINATION: 1.Computed [...] subdural hematoma (series 8, image 31 and [id number], image 12). Small areas of encephalomalacia within [...] pelvis. Report dictated by Jos Silverman MD, (Auto Service Instructor). ILilo MD have personally reviewed and interpretedthis examination/study. [...] pelvis. Report dictated by Jos Silverman MD, (Auto Service Instructor). I, Lilo David MD have personally reviewed and interpreted this examination/study. > Interpreting Provider: Lilo David MD on 01/11/2025 3:57 PM Narrative 01/11/2025 3:57 PM CDT PROCEDURE: CT HEAD WO CONTRAST, CT CERVICAL SPINE WO CONTRAST, CT LUMBAR SPINE WO CONTRAST, CT THORACIC SPINE WO CONTRAST, DATE/TIME OF EXAM: 01/11/2025 5:51 AM, LOCATION [facility] INDICATION: T14.90XA: Trauma EXAMINATION: 1.Computed [...] DATE/TIME OF EXAM: 01/11/2025 5:51 AM, LOCATION [facility] INDICATION: T14.90XA: Trauma EXAMINATION: 1.Computed [...] subdural hematoma (series 8, image 31 and [id number], image 12). Small areas of encephalomalacia within [...] pelvis. Report dictated by Jos Silverman MD, (Auto Service Instructor). I, Lilo David MD have personally reviewed and interpretedthis examination/study. > Interpreting Provider: Lilo David MD on 01/11/2025 3:57 PM us Jose Miguel Ratliff MD CT ORDERABLES Final Resul t * (ABNORMAL) TEG 6 GLOBAL HEMOSTASIS W/ LYSIS (01/11/2025 5:26 AM CDT) Citrated Kaolin R (Reaction Time) 4.2(L) 4.6 - 9.1 min 01/11/2025 6:30 AM T [facility] Comment:CK R result below no rmal range. Consistent with hypercoagulable clotting factors. Citrated Kaolin LY30 (Lysis) 0.0 0.0 - 2.6 % 01/11/2025 6:30 AM [facility] Citrated Functional Fibrinogen MA (Max Amplitude) 23.7 15.0 - 32.0 mm 01/11/2025 6:30 AM [facility] Citrated RapidTEG MA (Max Amplitude) 66.1 52.0 - 70.0 mm 01/11/2025 6:30 AM [facility] Blood BLOOD SPECIMEN / Unknown Venipuncture / Unknown 01/11/2025 5:26 AM CDT 01/11/2025 5:32 AM CDT us Jos eMiguel Ratliff MD LAB - HEMATOLOGY ORDERABLES Final Result [facility] [address] [place] [address], [facility] [phone] * (ABNORMAL) TEG 6S PLATELET MAPPING (01/11/2025 5:26 AM CDT) TEGPLM (Max Amplitude) Koalin 65.4 53.0 - 68.0 mm 01/11/2025 6:33 AM [facility] TEGPLM (Max Amplitude) ACTF 16.3 2.0 - 19.0 mm 01/11/2025 6:33 AM [facility] TEGPLM (Max Amplitude) ADP 48.5 45.0 - 69.0 mm 01/11/2025 6:33 AM [facility] TEGPLM (Max Amplitude) AA 54.5 51.0 - 71.0 mm 01/11/2025 6:33 AM [facility] TEGPLM %Inhibition ADP 34.4(H) 0.0 - 17.0 % 01/11/2025 6:33 AM [facility] TEGPLM %Inhibition AA 22.2(H) 0.0 - 11.0 % 01/11/2025 6:33 AM [facility] TEGPLM %Aggregation ADP 65.6(L) 83.0 - 100.0 % 01/11/2025 6:33 AM [facility] TEGPLM % Aggregation AA 77.8(L) 89.0 - 100.0 % 01/11/2025 6:33 AM [facility] Blood BLOOD SPECIMEN / Unknown Venipuncture / Unknown 01/11/2025 5:26 AM CDT 01/11/2025 5:32 AM CDT us Jose Miguel Ratliff MD LAB - HEMATOLOGY ORDERABLES Final Result Performing Organization Address [facility] Co de Phone Number [address] [address], [facility] [phone] * PT-INR [facility] (01/11/2025 5:26 AM CDT) PT 13.5 12.1 - 14.8 Seconds 01/11/2025 5:50 AM CDT [facility] [employer] [facility] INR 1.1 See Comment 01/11/2025 5:50 AM CDT [facility] Comment:The suggested therap eutic range for standard coumadin (warfarin) therapy is an INR of 2.0-3.0. For high-risk patients (Mechanical Mitral Valve Prosthesis, etc.), the suggested prophylactic therapeutic range is an INR of 2.5-3.5. Blood BLOOD SPECIMEN / Unknown Venipuncture / Unknown 01/11/2025 5:26 AM CDT 01/11/2025 5:29 AM CDT Result Fadumo Ratliff MD LAB - COAGULATION ORDERABLE S Final Result Performing Organization Address City/[facility] Co de Phone Number [address] [address], [facility] [phone] * TYPE + SCREEN PANEL (01/11/2025 5:26 AM CDT) Antibody Screen NEG 6:11 AM CDT [facility] BLOOD [facility] LAB ABO Rh A POS 01/11/2025 6:11 AM CDT [facility]OD [facility] Blood Bank BLOOD SPECIMEN / Unknown Venipuncture / Unknown 01/11/2025 5:26 AM CDT 01/11/2025 5:33 AM CDT us Jose Miguel Ratliff MD LAB - BLOOD BANK ORDERABLES Final Result Performing Organization Address [facility] Co de Phone Number [facility]OD [facility] [address] [place] [address], [facility] [phone] * ALCOHOL ETHYL BLOOD (01/11/2025 5:26 AM CDT) Ethanol (mg/dL) <10 <10 mg/dL 5:58 AM CDT [facility] Ethanol Calculated (g/dL) <0.010 <=0.010 g/dL 01/11/2025 5:58 AM CDT [facility] Blood BLOOD SPECIMEN / Unknown Venipuncture / Unknown 01/11/2025 5:26 AM CDT 01/11/2025 5:29 AM CDT Narrative [facility] - 01/11/2025 5:58 AM CDT Ethanol Interp <10: None Detected. Depression of HIGHWAY ENGINEERING TEACHER: >100 mg/dl Potentially Critical: >250 mg/dl Potentially Fatal >400 mg/dl Ethanol in the patient's blood will contribute to the osmolar gap. Ethanol's contribution to the osmolar gap can be estimated by dividing the concentration of ethanol in mg/dL by 4.6. This test is for clinical use only and does not equal a VAMSHI for legal purposes. Jose Miguel Ratliff MD LAB - CHEMISTRY ORDERABLES Final Result Performing Organization Address [facility] Co de Phone Number [facility] [address] [place] [address], [facility] [phone] * XR CHEST 1VW PORTABLE (01/11/2025 4:55 AM CDT) Anatomical Region Laterality Modality Chest Digital Radiogra phy 01/11/2025 5:29 AM CDT Narrative 01/11/2025 9:49 AM CDT PROCEDURE: XR CHEST 1VW PORTABLE, DATE/TIME OF EXAM: 01/11/2025 4:55 AM, LOCATION [facility] INDICATION: T14.90XA: Trauma COMPARISON: None. TECHNIQUE: Frontal radiograph of the chest. FINDINGS/IMPRESSION: Low lung volumes with bronchovascular crowding. There is no focal consolidation, pleural effusion, or pneumothorax. The cardiomediastinal silhouette is normal. The visible bony thorax is intact. Surgical material is seen at the epigastrium. Report dictated by Jos Silevrman MD, (Auto Service Instructor). Barb Luciano MD have personally reviewed and interpreted this examination/study. > Interpreting Provider: Barb Summers MD on 01/11/2025 9:49 AM Procedure Note Barb Summers MD - 01/11/2025 PROCEDURE: XR CHEST 1VW PORTABLE, DATE/TIME OF EXAM: 01/11/2025 4:55AM, LOCATION [facility] INDICATION: T14.90XA: Trauma COMPARISON: None. TECHNIQUE: Frontal radiograph of the chest. FINDINGS/IMPRESSION: Low lung volumes with bronchovascular crowding. There is no focal consolidation, pleural effusion, or pneumothorax. The cardiomediastinal silhouette is normal. The visible bony thorax is intact. Surgicalmaterial is seen at the epigastrium. Report dictated by Jos Silverman MD, (Auto Service Instructor). Barb Luciano MD have personally reviewed and [...] Report dictated by Jos Silverman MD, MD (professor of radiology). Barb Luciano MD have personally reviewed and interpreted this examination/study. > Interpreting Provider: Barb Summers MD on 01/11/2025 9:47 AM Narrative 01/11/2025 9:47 AM CDT PROCEDURE: XR PELVIS 1 OR 2VW, DATE/TIME OF EXAM: 01/11/2025 4:55 AM, LOCATION [facility] INDICATION: T14.90XA: Trauma COMPARISON: None. [...] DATE/TIME OF EXAM: 01/11/2025 4:55 AM, LOCATION [facility] INDICATION: T14.90XA: Trauma COMPARISON: None. FINDINGS: Partially visualized posterior fusion hardware of the lumbar spine with interbody fusion devices. No acute fracture is identified. The femoral heads appear well-seated within their respective acetabula. The pubic symphysis is intact. Bone density and texture are normal. The sacroiliac joints are normal. IMPRESSION: No acute fracture identified. Report dictated by Jos Silverman MD, MD (professor of radiology). I, Barb Summers MD have personally reviewed and interpreted this examination/study. > Interpreting Provider: Barb Summers MD on 01/11/2025 9:47 AM us Jose Miguel Ratliff MD DIAGNOSTIC IMAGING ORDERABL ES Final Result * ENDOSCOPY, COLON, SCREENING (07/22/2020 10:36 AM PACKING AND SHIPPING CLERK) Report Endoscopy POC _ Patient Name: Leydi [...] العلي RN, Bridget Belcher Referring MD: Megan Mcwilliams [...] for surveillance. Procedure Code(s): --- Professional --- 85790, Colonoscopy, flexible; with removal of tumor(s), polyp(s), or other lesion(s) by snare technique 04044, Colonoscopy, flexible; with directed submucosal injection(s), any substance 36973, 59, Colonoscopy, flexible; with biopsy, single or multiple --- Technical --- 07367, Colonoscopy, flexible; with removal of tumor(s), polyp(s), or other lesion(s) by snare technique [id number], Colonoscopy, flexible; with directed submucosal injection(s), any substance 92068, 59, Colonoscopy, flexible; with biopsy, single or [...] neoplasm of digestive organs CPT copyright 2017 [employer]. All rights reserved. The codes documented in this report are preliminary and upon trench digging machine operator review may be revised to meet current compliance requirements. Damien Green MD 07/22/2020 12:00:12 PM This report has been signed electronically. Number of Addenda: 0 Note Initiated On: 07/22/2020 10:36 AM [facility] ENDOSCOPY 07/22/2020 10:3 6 AM PACKING AND SHIPPING CLERK Damien Green MD GI PROCEDURE ORDERABLES Edited Result - Final [facility] ENDOSCOPY from Last 3 Months or Most Recently Relevant to Health Maintenance Insurance [employer] MEDICARE Advance Directives * Full Code (Latest Code Status on File) Date Activated Date Inactivated Comments 01/11/2025 11:15 AM 01/12/2025 10:54 PM * Full Code Date Activated Date Inactivated Comments 2017 12:04 PM 04/08/2017 5:39 PM Care Teams Instructional Technology Coach Relationship Specialty Start Date End Date Yannick Umanzor DO [address] [place] [address] PCP - General Internal Medicine 01/19/25 Megan Mcwilliams MD [address] [facility] [address] [address] 02/26/17 Kwame Hathaway MD [address] [facility] [address] [place] [phone] Commercial Front Load Driver Obstetrics and Gynecology 05/20/17
--- OUTSIDE RECORDS SUMMARY | 2025-02-07 15:25 | XMS_ITS | Clinical Summary ---
Author Organization [facility] Address [address] [place] [address] Care Team Providers Care Manager Talent Management Name Role Phone Unavailable Primary Care Provider Unavailabl e Encounters Date Type Department Care Team Description 02/07/2025 6:35 AM CDT Hospital Encounter [facility] [address] [place], [place] [id number] Nikolas Arnett DO 02/07/2025 Orders Only [facility] [address] [place] [address] Nikolas Arnett DO from Last 3 Months Social History Tobacco [...] on patient's age to complete this topic Procedures Procedure Name Priority Date/Time Associated Diagnosis Comments COMPREHENSIVE METABOLIC PANEL Routine 02/07/2025 5:25 AM CDT Examination, medical, general CBC W/DIFF AUTOMATED Routine 02/07/2025 5:25 AM CDT Examination, medical, general from Last 3 Months Results * (ABNORMAL) COMPREHENSIVE METABOLIC PANEL (02/07/2025 5:25 AM CDT) [facility] Signature GLUCOSE 111(H) 70 - 99 MG/DL 02/07/2025 9:46 AM CDT [facility] BUN 39(H) 7 - 18 MG/DL 02/07/2025 9:46 AM CDT [facility] CREATININE S/P/B 3.56(H) 0.50 - 1.20 MG/DL 02/07/2025 9:46 AM CDT [facility] SODIUM S/P/B 137 136 - 145 MMOL/L 02/07/2025 9:46 AM CDT [facility] POTASSIUM S/P/B 3.0(LL) 3.5 - 5.1 MMOL/L 02/07/2025 9:46 AM CDT [facility] Comment: ALERT VALUE CALLED TO AND READ BACK BY: CHRISTIAN ROTH @ [facility] [phone] [id number] AJD CHLORIDE S/P/B 95(L) 100 - 108 MMOL/L 02/07/2025 9:46 AM CDT [facility] CO2 26.8 21.0 - 32.0 MMOL/L 02/07/2025 9:46 AM CDT [facility] CALCIUM S/P/B 8.9 8.5 - 10.1 MG/DL 02/07/2025 9:46 AM CDT [facility] BILIRUBIN TOTAL S/P/B 2.6(H) 0.2 - 1.2 MG/DL 02/07/2025 9:46 AM CDT [facility] Comment: THIS ASSAY IS NOT RECOMMENDED FOR PATIENTS UNDERGOING TREATMENT WITH ELTROMBOPAG DUE TO THE POTENTIAL FOR FALSELY ELEVATED RESULTS. TOTAL PROTEIN S/P/B 6.4 6.4 - 8.2 G/DL 02/07/2025 9:46 AM CDT [facility] ALBUMIN S/P/B 2.8(L) 3.4 - 5.0 G/DL 02/07/2025 9:46 AM CDT [facility] AST 65(H) 15 - 37 U/L 02/07/2025 9:46 AM CDT [facility] ALT 44 14 - 55 U/L 02/07/2025 9:46 AM CDT [facility] ALKALINE PHOSPHATASE S/P/B 110 50 - 136 U/L 02/07/2025 9:46 AM CDT [facility] ANION GAP 15.2(H) 5.0 - 15.0 MMOL/L 02/07/2025 9:46 AM CDT [facility] BUN CREATININE RATIO 11.0 6 - 26 02/07/2025 9:46 AM CDT [facility] A/G RATIO 0.8(L) 1.0 - 2.5 RATIO 02/07/2025 9:46 AM CDT [facility] GFR ESTIMATE 13(L) >90 ML/MIN/1.7 3 M2 02/07/2025 9:46 AM CDT [facility] Comment: NOTE: eGFR is not calculated for patients <18 years of age. This is an estimated GFR calculation using the new CKD EPI creatinine equation without race and so does not require a correction factor for race. This estimated GFR should not be used for calculating drug doses. 02/07/2025 5:25 AM CDT us Nikolas Arnett DO LABORATORY Final Result [address] [place] [address], * (ABNORMAL) CBC W/DIFF AUTOMATED (02/07/2025 5:25 AM CDT) WBC 16.35(H) 4.50 - 11.00 x10'3/uL 02/07/2025 7:20 AM CDT [facility] RBC 4.01 4.00 - 5.20 x10'6/uL 02/07/2025 7:20 AM CDT [facility] HGB 12.7 12.0 - 16.0 G/DL 02/07/2025 7:20 AM CDT [facility] HCT 35.6(L) 38.0 - 48.0 % 02/07/2025 7:20 AM CDT [facility] MCV 88.8 80.0 - 100.0 FL 02/07/2025 7:20 AM CDT [facility] MCH 31.7 26.0 - 34.0 PG 02/07/2025 7:20 AM CDT [facility] MCHC 35.7 31.0 - 37.0 G/DL 02/07/2025 7:20 AM CDT [facility] RDW 13.9 11.6 - 14.8 % 02/07/2025 7:20 AM CDT [facility] PLT 278 130 - 400 x10'3/uL 02/07/2025 7:20 AM CDT [facility] MPV 10.8 7.0 - 12.0 FL 02/07/2025 7:20 AM CDT [facility] CBC COMMENT AUTOMATED RBC MORPHOLOGY AND PLATELET EVALUATION NORMAL 02/07/2025 7:20 AM CDT [facility] NEUTROPHILS % 87.8(H) 40.0 - 74.0 % 02/07/2025 7:20 AM CDT [facility] LYMPHOCYTES % 4.3(L) 14.0 - 46.0 % 02/07/2025 7:20 AM CDT [facility] MONOCYTES % 6.4 4.0 - 13.0 % 02/07/2025 7:20 AM CDT [facility] EOSINOPHILS 0.1 0.0 - 7.0 % 02/07/2025 7:20 AM CDT [facility] BASOPHILS 0.2 0.0 - 3.0 % 02/07/2025 7:20 AM CDT [facility] IMMATURE GRANS % 1.2(H) 0.0 - 0.43 % 02/07/2025 7:20 AM CDT [facility] NRBC % 0.7 % 02/07/2025 7:20 AM CDT [facility] ABS. NEUTROPHILS TOTAL 14.36(H) 1.69 - 7.81 x10'3/uL 02/07/2025 7:20 AM CDT [facility] ABS. LYMPHOCYTES 0.71 0.21 - 5.42 x10'3/uL 02/07/2025 7:20 AM CDT [facility] ABS. MONOCYTES 1.04 0.04 - 1.37 x10'3/uL 02/07/2025 7:20 AM CDT [facility] ABS. EOSINOPHILS 0.01 0.00 - 0.68 x10'3/uL 02/07/2025 7:20 AM CDT [facility] ABS. BASOPHILS 0.03 0.00 - 0.08 x10'3/uL 02/07/2025 7:20 AM CDT [facility] ABS. IMMATURE GRANULOCYTES 0.20(H) 0.00 - 0.06 x10'3/uL 02/07/2025 7:20 AM CDT [facility] ABS. NUCLEATED RBC'S 0.11(HH) 0.00 - 0.01 x10'3/uL 02/07/2025 7:20 AM CDT [facility] 02/07/2025 5:25 AM CDT Nikolas Arnett DO LABORATORY Final Result [facility] [address] [place] [address], [place] from Last 3 Months
--- OUTSIDE RECORDS SUMMARY | 2025-02-07 15:25 | XMS_ITS | Patient Health Record ---
Author Organization [facility] Address [address] [place], [place] [id number] Care Team Providers Care Mycologist Name Role Phone DEE CAMACHO Unavailable [phone] Yannick Umanzor Unavailable Unavailable Allergies No Known [...] Surgeons [place] [address] [place] [id number] 03/30/2024 DEE CAMACHO Fungal infection of nail B35.1 ; Pain in right toe(s) M79.674 ; Pain in left toe(s) M79.675 and Unspecified atherosclerosis of [place] arteries of extremities, bilateral legs I70.203 [facility] [address] [place], [place] [id number] 06/01/2024 DEE CAMACHO Atherosclerosis of [place] arteries of extremities with intermittent claudication, bilateral legs I70.213 ; Onychomycosis B35.1 ; Pain in right toe(s) M79.674 and Pain in left toe(s) M79.675 [facility] [address] [place], [place] [id number] 08/03/2024 DEE CAMACHO Atherosclerosis of [place] arteries of extremities with intermittent claudication, bilateral legs I70.213 ; Onychomycosis B35.1 ; Pain in right toe(s) M79.674 and Pain in left toe(s) M79.675 [facility] [address] [place], [place] [id number] 11/02/2024 DEE CAMACHO Atherosclerosis of [place] arteries of extremities with intermittent claudication, bilateral legs I70.213 ; Onychomycosis B35.1 ; Pain in right toe(s) M79.674 and Pain in left toe(s) M79.675 Assessments Encounter Date Diagnosis (ICD Code) Assessment Notes Treatment Notes Treatment Clinical Notes Section Notes 03/30/2024 Fungal infection of nail (ICD-10 - B35.1) 06/01/2024 Atherosclerosis of [place] arteries of extremities with intermittent claudication, bilateral legs (ICD-10 - I70.213) 06/01/2024 Onychomycosis (ICD-10 - B35.1) Nails 1-5 Bilateral were debrided extensively with nail nippers and emery board, reducing length and girth to pink healthy tissue with any subungual debris and necrotic tissue removed 08/03/2024 Atherosclerosis of [place] arteries of extremities with intermittent claudication, bilateral legs (ICD-10 - I70.213) 11/02/2024 Atherosclerosis of [place] arteries of extremities with intermittent claudication, bilateral [...] (ICD-10 - M79.675) 03/30/2024 Unspecified atherosclerosis of [place] arteries of extremities, bilateral legs (ICD-10 - [...] Coverage End Date [employer] PPO [address] [place], [place] [id number] Ankita VALE PFEIFFER Self - patient is the insured Medicare Part B [place] [address] [facility] [place] [address] [id number] VALE PFEIFFER Self - patient is the insured Medical (General) History Medical History History ICD Code acid reflux artificial joint fibromyalgia GERD Respiratory disease Sleep apnea Back Trouble Psychiatric Disorder hypertension Surgical History Surgery Date(Month/Year) Brain surgery Right foot surgery Right wrist surgery Bladder surgery
--- OUTSIDE RECORDS SUMMARY | 2025-02-07 15:25 | XMS_ITS | Continuity of Care Document ---
Author Organization [facility] Address [address] [place] [address] [place] [address] Phone Care Team Providers Care Surg Tech Name Role Phone [facility] Unavailable Unavail able Joshua Del Toro Unavailable Unavailable Procedures Procedure Date TF Polycarb Sphcyl [place] To +/-4d .12-2d Vision Svcs Frames Purchases Anti-reflective Coating Prism Lens/es Eye Exam & Treatment Refraction Advance Directives Directive Yes / No Effective Date File Name No Information Encounters Encounter Description Practice Location Reason(s) For Visit Diagnoses Date Provider Providers Copied on Encounter [facility], [address] [place] [address] [address], [place], [place], [id number], [place] tel:[phone] [facility] No Information Dec-2 4200 9 [facility] . [address] [place] [address], [facility] [address], [place], [address], [place]. tel:[phone] Referring Provider: Herve Esparza, [address] [place] [address] [address], [place], [address]. tel:[phone] sulting Provider: Joshua Del Toro, [address] [place] [address], [place], [address]. tel:[phone] [facility], [address] [place] [address] [address], [place], [place], [address], [place] tel:[phone] [facility] No Information Dec-2 2-200 9 Arteaga NASIM Edgar. [address] [place] [address] Dr, [address], [place], [address], [place]. tel:[phone] Family History Family Member Type Diagnosis Age At Onset No Information Payers Payer name Insurance type Covered democrat ID Authoriza tikenji(s) P [id number] Social History Type Description Quantity Date Captured [...]
--- OUTSIDE RECORDS SUMMARY | 2025-02-07 15:26 | XMS_ITS | Referral Summary ---
Author Organization [facility] [address] Address [address] [place] [address] Care Team Providers Care Gut Carrier Name Role Phone Yannick Umanzor DO Primary Care Provider [phone] Allergies Active Allergy Reactions Criticality Noted Date [...] on file Legal Sex Female 1:37 AM CERTIFIED ENDOSCOPY TECHNICIAN Gender Identity Female 01/02/2024 7:43 PM CDT Sexual Orientation Straight 01/02/2024 7: 43 PM CDT Last Filed Vital Signs Vital Sign Reading Time Taken Comments Blood Pressure 142/60 12/31/2023 2:20 PM CDT Pulse 70 12/31/2023 2:20 PM CDT Temperature 36.4 C (97.6 F) 10/18/2020 9:01 AM CERTIFIED ENDOSCOPY TECHNICIAN Respiratory Rate 20 10/18/2020 9:01 AM CERTIFIED ENDOSCOPY TECHNICIAN Oxygen Saturation 95% 12/03/2023 1:24 PM CDT Inhaled Oxygen Concentration - - Weight 126.1 kg (278 lb) 12/31/2023 2:20 PM CDT Height 162.6 cm (5' 4) 12/31/2023 2:20 PM CDT Body Mass Index 47.72 12/31/2023 2:20 PM CDT Plan of Treatment Not on file Procedures Procedure Name Priority Date/Time Associated Diagnosis Comments SCREENING MAMMOGRAM Routine 09/25/2013 1 0:31 AM CERTIFIED ENDOSCOPY TECHNICIAN from Last 3 Months or Most Recently Relevant to Health Maintenance Results * Screening Mammogram (09/25/2013 10:31 AM CERTIFIED ENDOSCOPY TECHNICIAN) Anatomical Region Laterality Modality Breast N/A Mammography 09/25/2013 10:3 1 AM CERTIFIED ENDOSCOPY TECHNICIAN Narrative 09/29/2013 8:47 AM CERTIFIED ENDOSCOPY TECHNICIAN SONNY ABDI M.D. FINAL REPORT ACC# Date Time Exam [id number] Sep 25, 2013 10:31:00 BMV [id number] [place] Screening Mamm Technologist(s): Vale Curran; ; EXAMINATION: Mammogram Technique: Bilateral Full-Field Digital Screening Mammogram was performed. Views obtained: bilateral craniocaudal and bilateral mediolateral oblique. Computer Aided Detection was performed with [employer] 1.3 version 9.3. Mammogram Findings: The present examination has been compared to a prior imaging study performed at [facility] on 09/23/2012. There [...] M.D. FINAL REPORT ACC# Date Time Exam [id number] Sep 25, 2013 10:31:00 BMV [id number] [place] Screening Mamm Technologist(s): Vale Curran; ; EXAMINATION: Mammogram Technique: Bilateral Full-Field Digital Screening Mammogram was performed. Views obtained: bilateral craniocaudal and bilateral mediolateral oblique. Computer Aided Detection was performed with [employer] version 9.3. Mammogram Findings: The present examination has been compared to a prior imaging study performed at [facility] on09/23/2012. There are [...] Most Recently Relevant to Health Maintenance Insurance [employer] [facility] Member Subscriber Plan / Payer (Ef fective 2010-Present) Name:Leydi Su Member ID:[id number] Relation to Subscriber:Self Name:Leydi Su Subscriber ID:[id number] Payer ID:[id number] Type:[employer] HMO/PPO Address: [address] [place] [id number] [facility] MEDICARE [facility] [id number] [facility] [id number] MEDICARE MEDICARE [facility] [id number] Care Teams Gut Carrier Relationship Specialty Start Date End Date Yannick Umanzor DO PCP - General Internal Medicine 10/18/20
--- OUTSIDE RECORDS SUMMARY | 2025-02-07 15:26 | XMS_ITS | Continuity of Care Document ---
Author Organization [facility] Address [address] [place] [address] Phone Care Team Providers Care Track Coach Name Role Phone Tracy Quiroz Unavailable Unavailab [...] Endo Mucosal Resection COLONOSCOPY AND BIOPSY OFFICE [id number] Advance Directives Directive Yes / No Effective Date File Name No Information Encounters Encounter Description Practice Location Reason(s) For Visit Diagnoses Date Provider Providers Copied on Encounter [facility], [address], [place], [place], [address] , tel: [phone] [facility] No Information 1 Allan Molina. [address] [place], [place], [address] , [place]. tel: [phone] [facility], [address], [place], [place], [address] , [place] tel: [phone] [facility] No Information 1 Allan Molina. [address] [place], [place], [address] , . tel: [phone] [facility], [address], [place], [place], [address] , [place] tel: [phone] [facility] No Information 0 Petershashi Worthingtony. [address] [facility], [place], [place], [address] , [place]. tel: [phone] Referring Provider: Megan Mcwilliams, [address] [facility] [address], [place], [address]. [phone] OFFICE UXEAN-BTP-HR TAILED [facility], [address], [place], [place], [address] , tel: [phone] [facility] GERD (chief complaint) Gastroesophageal reflux disease without esophagitisFamily history of colon cancer in father 0 Allan Molina. [address] [place], [place], [address] , [place]. tel: [phone] Referring Provider: Megan Mcwilliams, [address] [facility] [address], [place], [address]. [phone] Family History Family Member Type Diagnosis Age At Onset No Information Payers Payer name Insurance type Covered green party ID Authoriza tion(s) [facility] [id number] Social History Type Description Quantity Date Captured [...]
--- OUTSIDE RECORDS SUMMARY | 2025-02-07 15:26 | XMS_ITS ---
Author Organization [facility] Address [address] [facility] [address] [place], [place] [address] Care Team Providers Care Cardiopulmonary Technologist Name Role Phone DEE GEE Unavailable [phone] Yannick Umanzor Unavailable Unavailable REASON FOR VISIT *General care Encounters Encounter Location Date Provider Diagnosis [facility] [place] [address] [facility] [address] [place], [place] [id number] 01/04/2025 DEE GEE Plan Of Treatment No Information Progress Notes * VALE PFEIFFERDOB:1955 (69 yo F)Acc No.[id number]:01/04/2025 Patient: Get PEÑAVALE Provider: Melisa Gee DPM :1955 A ge:69 Y S ex:Female Date:01/04/2025 Address:[address] [place], [place] [phone] Subjective: * Chief Complaints: * 1 . *General care. * Medical History: Objective: * Vitals: Assessment: Plan: * Treatment: * Billing Information: * Visit Code: * Procedure Codes: * Electronic signature of DEE GEE DPM on 02/07/2025 at 03:25 PM CDT Sign off status: Pending * Provider: Melisa Gee DPM Date: 01/04/2025 Generated for Printi ng/Faxing/eTransmitting on: 0 02/07/2025 03:25 PM CDT
--- OUTSIDE RECORDS SUMMARY | 2025-02-07 15:26 | XMS_ITS | Encounter Summary ---
Author Organization [facility] Address [address] [place] [address] Care Team Providers Care Yield Improvement Engineer Name Role Phone Unavailable Primary Care Provider Unavailabl e Encounter Details Date Type Department Care Team (Late st Contact Info) Description 02/07/2025 6:35 AM CDT Hospital Encounter [facility] [address] [place], [place] [phone] Nikolas Arnett DO [address] [place] [address] Social History Tobacco Use Types Packs/Day Years [...] 02/07/2025 5:25 AM CDT Examination, medical, general documented in this encounter Results * (ABNORMAL) COMPREHENSIVE METABOLIC PANEL (02/07/2025 5:25 AM CDT) GLUCOSE 111(H) 70 - 99 MG/DL 02/07/2025 9:46 AM CDT [facility] BUN 39(H) 7 - 18 MG/DL 02/07/2025 9:46 AM CDT [facility] CREATININE S/P/B 3.56(H) 0.50 - 1.20 MG/DL 02/07/2025 9:46 AM CDT [facility] SODIUM S/P/B 137 136 - 145 MMOL/L 02/07/2025 9:46 AM CDT [facility] POTASSIUM S/P/B 3.0(LL) 3.5 - 5.1 MMOL/L 02/07/2025 9:46 AM CDT [facility] Comment: ALERT VALUE CALLED TO AND READ BACK BY: CHRISTIAN ROTH @ [facility] [id number] AJD CHLORIDE S/P/B 95(L) 100 - 108 MMOL/L 02/07/2025 9:46 AM CDT [facility] CO2 26.8 21.0 - 32.0 MMOL/L 02/07/2025 9:46 AM CDT [facility] CALCIUM S/P/B 8.9 8.5 - 10.1 MG/DL 02/07/2025 9:46 AM CDT [facility] BILIRUBIN TOTAL S/P/B 2.6(H) 0.2 - 1.2 MG/DL 02/07/2025 9:46 AM CDT [facility] Comment: THIS ASSAY IS NOT RECOMMENDED FOR PATIENTS UNDERGOING TREATMENT WITH ELTROMBOPAG DUE TO THE POTENTIAL FOR FALSELY ELEVATED RESULTS. TOTAL PROTEIN S/P/B 6.4 6.4 - 8.2 G/DL 02/07/2025 9:46 AM CDT [facility] ALBUMIN S/P/B 2.8(L) 3.4 - 5.0 G/DL 02/07/2025 9:46 AM CDT [facility] AST 65(H) 15 - 37 U/L 02/07/2025 9:46 AM CDT [facility] ALT 44 14 - 55 U/L 02/07/2025 9:46 AM CDT [facility] ALKALINE PHOSPHATASE S/P/B 110 50 - 136 U/L 02/07/2025 9:46 AM CDT [facility] ANION GAP 15.2(H) 5.0 - 15.0 MMOL/L 02/07/2025 9:46 AM CDT [facility] BUN CREATININE RATIO 11.0 6 - 26 02/07/2025 9:46 AM CDT [facility] A/G RATIO 0.8(L) 1.0 - 2.5 RATIO 02/07/2025 9:46 AM CDT [facility] GFR ESTIMATE 13(L) >90 ML/MIN/1.7 3 M2 02/07/2025 9:46 AM CDT [facility] Comment: NOTE: eGFR is not calculated for patients <18 years of age. This is an estimated GFR calculation using the new CKD EPI creatinine equation without race and so does not require a correction factor for race. This estimated GFR should not be used for calculating drug doses. 02/07/2025 5:25 AM CDT Nikolas Arnett DO LABORATORY Final Result [address] [place] [address], * (ABNORMAL) CBC W/DIFF AUTOMATED (02/07/2025 5:25 AM CDT) WBC 16.35(H) 4.50 - 11.00 x10'3/uL 02/07/2025 7:20 AM CDT [facility] RBC 4.01 4.00 - 5.20 x10'6/uL 02/07/2025 7:20 AM CDT [facility] HGB 12.7 12.0 - 16.0 G/DL 02/07/2025 7:20 AM CDT [facility] HCT 35.6(L) 38.0 - 48.0 % 02/07/2025 7:20 AM CDT [facility] MCV 88.8 80.0 - 100.0 FL 02/07/2025 7:20 AM CDT [facility] MCH 31.7 26.0 - 34.0 PG 02/07/2025 7:20 AM CDT [facility] MCHC 35.7 31.0 - 37.0 G/DL 02/07/2025 7:20 AM CDT [facility] RDW 13.9 11.6 - 14.8 % 02/07/2025 7:20 AM CDT [facility] PLT 278 130 - 400 x10'3/uL 02/07/2025 7:20 AM CDT [facility] MPV 10.8 7.0 - 12.0 FL 02/07/2025 7:20 AM CDT [facility] CBC COMMENT AUTOMATED RBC MORPHOLOGY AND PLATELET EVALUATION NORMAL 02/07/2025 7:20 AM CDT [facility] NEUTROPHILS % 87.8(H) 40.0 - 74.0 % 02/07/2025 7:20 AM CDT [facility] LYMPHOCYTES % 4.3(L) 14.0 - 46.0 % 02/07/2025 7:20 AM CDT [facility] MONOCYTES % 6.4 4.0 - 13.0 % 02/07/2025 7:20 AM CDT [facility] EOSINOPHILS 0.1 0.0 - 7.0 % 02/07/2025 7:20 AM CDT [facility] BASOPHILS 0.2 0.0 - 3.0 % 02/07/2025 7:20 AM CDT [facility] IMMATURE GRANS % 1.2(H) 0.0 - 0.43 % 02/07/2025 7:20 AM CDT [facility] NRBC % 0.7 % 02/07/2025 7:20 AM CDT [facility] ABS. NEUTROPHILS TOTAL 14.36(H) 1.69 - 7.81 x10'3/uL 02/07/2025 7:20 AM CDT [facility] ABS. LYMPHOCYTES 0.71 0.21 - 5.42 x10'3/uL 02/07/2025 7:20 AM CDT [facility] ABS. MONOCYTES 1.04 0.04 - 1.37 x10'3/uL 02/07/2025 7:20 AM CDT [facility] ABS. EOSINOPHILS 0.01 0.00 - 0.68 x10'3/uL 02/07/2025 7:20 AM CDT [facility] ABS. BASOPHILS 0.03 0.00 - 0.08 x10'3/uL 02/07/2025 7:20 AM CDT [facility] ABS. IMMATURE GRANULOCYTES 0.20(H) 0.00 - 0.06 x10'3/uL 02/07/2025 7:20 AM CDT [facility] ABS. NUCLEATED RBC'S 0.11(HH) 0.00 - 0.01 x10'3/uL 02/07/2025 7:20 AM CDT [facility] 02/07/2025 5:25 AM CDT Nikolas Arnett DO LABORATORY Final Result [address] [place] [address], [place] documented in this encounter Visit Diagnoses Diagnosis Examination, medical, general Unspecified general medical examination documented in this encounter
--- OUTSIDE RECORDS SUMMARY | 2025-02-07 15:26 | XMS_ITS | Encounter Summary ---
Author Organization [facility] Address [address] [place] [address] Phone Care Team Providers Care Quarry Supervisor Open Pit Name Role Phone Unavailable Primary Care Provider Unavailabl e Encounter Details Date Type Department Care Team (Late st Contact Info) Description 11/11/2024 Lab Requisition [facility] Laboratory Services [address] [place] [address] Nikolas Arnett DO 1 [place] [address] Anemia, unspecified Social History Tobacco Use Types [...] - 12.00 10(3)/mcL 11/11/2024 10:30 AM CDT [facility] RBC 4.49 3.80 - 5.30 10(6)/[facility] 11/11/2024 10:30 AM CDT [facility] HEMOGLOBIN (HGB) 14.4 12.0 - 15.8 g/dL 11/11/2024 10:30 AM CDT [facility] HEMATOCRIT (HCT) 43.5 36.0 - 47.0 % 11/11/2024 10:30 AM CDT [facility] MCV 96.9(H) 82.0 - 96.0 fL 11/11/2024 10:30 AM CDT [facility] MCH 32.1 26.0 - 34.0 pg 11/11/2024 10:30 AM CDT [facility] MCHC 33.1 31.0 - 36.0 g/dL 11/11/2024 10:30 AM CDT [facility] PLATELET COUNT 272 140 - 440 10(3)/[facility] 11/11/2024 10:30 AM CDT [facility] RDW 13.6 11.8 - 15.5 % 11/11/2024 10:30 AM CDT [facility] MPV 9.5(L) 9.7 - 12.4 fL 11/11/2024 10:30 AM CDT [facility] NEUTROPHILS 69.4 47.0 - 73.0 % 11/11/2024 10:30 AM CDT [facility] LYMPHOCYTES 18.4 18.0 - 42.0 % 11/11/2024 10:30 AM CDT [facility] MONOCYTES 9.9 4.0 - 12.0 % 11/11/2024 10:30 AM CDT [facility] EOSINOPHILS 1.7 0.0 - 5.0 % 11/11/2024 10:30 AM CDT [facility] BASOPHILS 0.6 0.0 - 1.0 % 11/11/2024 10:30 AM CDT [facility] ABSOLUTE NEUTROPHILS 7.54 1.60 - 7.70 10(3)/mcL 11/11/2024 10:30 AM CDT [facility] ABSOLUTE LYMPHOCYTES 1.99 1.30 - 3.20 10(3)/[facility] 11/11/2024 10:30 AM CDT [facility] ABSOLUTE MONOCYTES 1.07(H) 0.20 - 1.00 10(3)/[facility] 11/11/2024 10:30 AM CDT [facility] ABSOLUTE EOSINOPHIL 0.18 0.00 - 0.40 10(3)/[facility] 11/11/2024 10:30 AM CDT [facility] ABSOLUTE BASOPHILS 0.06 0.00 - 0.10 10(3)/[facility] 11/11/2024 10:30 AM CDT [facility] NRBC PER 100 WBC 0 11/12/19 10:30 AM CDT [facility] Blood No Phlebotomy Charged / Unknown 11/11/2024 8:30 AM CDT 11/11/2024 10:17 AM CDT Nikolas Arnett DO HEMATOLOGY ORDERABLES Final Resu lt [facility] [address] [place] [address] * (ABNORMAL) CMP (COMPREHENSIVE METABOLIC PANEL) (11/11/2024 8:30 AM CDT) SODIUM 141 136 - 145 mmol/L 11/11/2024 11:03 AM CDT [facility] POTASSIUM 2.8(L) 3.5 - 5.1 mmol/L 11/11/2024 11:03 AM CDT [facility] CHLORIDE 102 98 - 107 mmol/L 11/11/2024 11:03 AM CDT [facility] CO2, VENOUS 24 22 - 30 mmol/L 11/11/2024 11:03 AM CDT [facility] ANION GAP 17.8 <18.0 mmol/L 11/11/2024 11:03 AM CDT [facility] GLUCOSE 98 70 - 99 mg/dL 11/11/2024 11:03 AM [facility] BUN 15 10 - 20 mg/dL 11/11/2024 11:03 AM [facility] CREATININE, BLOOD 1.39(H) 0.60 - 1.00 mg/dL 11/11/2024 11:03 AM [facility] BUN/CREATININE RATIO 11(L) 12 - 20 ratio 11/11/2024 11:03 AM [facility] TOTAL PROTEIN 6.5 6.0 - 8.0 g/dL 11/11/2024 11:03 AM [facility] ALBUMIN 3.5 3.5 - 5.0 g/dL 11/11/2024 11:03 AM [facility] A/G RATIO 1.2 1.0 - 2.2 11/11/2024 11:03 AM [facility] CALCIUM 9.0 8.7 - 10.5 mg/dL 11/11/2024 11:03 AM [facility] T BILI 0.9 0.2 - 1.2 mg/dL 11/11/2024 11:03 AM [facility] SGOT (AST) 68(H) <43 U/L 11/11/2024 11:03 AM [facility] SGPT (ALT) 27 <56 U/L 11/11/2024 11:03 AM [facility] ALKALINE PHOSPHATASE 55 40 - 150 U/L 11/11/2024 11:03 AM [facility] GFR, ESTIMATED 41(L) >=60 11/11/2024 11:03 AM [facility] Comment: Creatinine Clearance is the preferred criteria for selecting drug dose adjustments in renally impaired patients. The GFR is provided as additional pertinent clinical information. GFR is reported in mL/min/1.73 sq m. Calculation based on the Chronic Kidney Disease Epidemiology Collaboration (CKD- EPI) equation refit without adjustment for race. GFR, EST. 46(L) >=60 025 11:03 AM [facility] GFR, EST. NONAFRICAN 38(L) >=60 11/11/2024 11:03 AM CDT [facility] Blood No Phlebotomy Charged / Unknown 11/11/2024 8:30 AM CDT 11/11/2024 10:17 AM CDT us Nikolas Arnett DO CHEMISTRY ORDERABLES Final Resul t [facility] [address] [place] [address] documented in this encounter Visit Diagnoses Diagnosis Anemia, unspecified documented in this encounter
--- OUTSIDE RECORDS SUMMARY | 2025-02-07 15:26 | XMS_ITS | Encounter Summary ---
Author Organization [facility] Address [address] [place] [address] Care Team Providers Care Dovetail Machine Operator Name Role Phone Unavailable Primary Care Provider Unavailabl e Encounter Details Date Type Department Care Team (Late st Contact Info) Description 02/07/2025 Orders Only [facility] Laboratory [address] [place], [place] [id number] Nikolas Arnett DO [address] [place] [address] Social History Tobacco Use Types Packs/Day Years Used Date Smoking Tobacco: Never Assessed Comments Unknown Sex and Gender Information Value Date Recorded Sex Assigned at Not on file Legal Sex Female 7:04 PM CDT Gender Identity Not on file Sexual Orientation Not on file documented as of this encounter Plan of Treatment Not on file documented as of this encounter Results * (ABNORMAL) CBC W/DIFF AUTOMATED (02/07/2025 5:25 AM CDT) WBC 16.35(H) 4.50 - 11.00 x10'3/uL 02/07/2025 7:20 AM CDT [facility] RBC 4.01 4.00 - 5.20 x10'6/uL 02/07/2025 7:20 AM CDT [facility] HGB 12.7 12.0 - 16.0 G/DL 02/07/2025 7:20 AM CDT [facility] HCT 35.6(L) 38.0 - 48.0 % 02/07/2025 7:20 AM CDT [facility] MCV 88.8 80.0 - 100.0 FL 02/07/2025 7:20 AM CDT [facility] MCH 31.7 26.0 - 34.0 PG 02/07/2025 7:20 AM CDT [facility] MCHC 35.7 31.0 - 37.0 G/DL 02/07/2025 7:20 AM CDT [facility] RDW 13.9 11.6 - 14.8 % 02/07/2025 7:20 AM CDT [facility] PLT 278 130 - 400 x10'3/uL 02/07/2025 7:20 AM CDT [facility] MPV 10.8 7.0 - 12.0 FL 02/07/2025 7:20 AM CDT [facility] CBC COMMENT AUTOMATED RBC MORPHOLOGY AND PLATELET EVALUATION NORMAL 02/07/2025 7:20 AM CDT [facility] NEUTROPHILS % 87.8(H) 40.0 - 74.0 % 02/07/2025 7:20 AM CDT [facility] LYMPHOCYTES % 4.3(L) 14.0 - 46.0 % 02/07/2025 7:20 AM CDT [facility] MONOCYTES % 6.4 4.0 - 13.0 % 02/07/2025 7:20 AM CDT [facility] EOSINOPHILS 0.1 0.0 - 7.0 % 02/07/2025 7:20 AM CDT [facility] BASOPHILS 0.2 0.0 - 3.0 % 02/07/2025 7:20 AM CDT [facility] IMMATURE GRANS % 1.2(H) 0.0 - 0.43 % 02/07/2025 7:20 AM CDT [facility] NRBC % 0.7 % 02/07/2025 7:20 AM CDT [facility] ABS. NEUTROPHILS TOTAL 14.36(H) 1.69 - 7.81 x10'3/uL 02/07/2025 7:20 AM CDT [facility] ABS. LYMPHOCYTES 0.71 0.21 - 5.42 x10'3/uL 02/07/2025 7:20 AM CDT [facility] ABS. MONOCYTES 1.04 0.04 - 1.37 x10'3/uL 02/07/2025 7:20 AM CDT [facility] ABS. EOSINOPHILS 0.01 0.00 - 0.68 x10'3/uL 02/07/2025 7:20 AM CDT [facility] ABS. BASOPHILS 0.03 0.00 - 0.08 x10'3/uL 02/07/2025 7:20 AM CDT [facility] ABS. IMMATURE GRANULOCYTES 0.20(H) 0.00 - 0.06 x10'3/uL 02/07/2025 7:20 AM CDT [facility] ABS. NUCLEATED RBC'S 0.11(HH) 0.00 - 0.01 x10'3/uL 02/07/2025 7:20 AM CDT [facility] 02/07/2025 5:25 AM CDT Nikolas Arnett DO LABORATORY Final Result [facility] [address] [place] [address], * (ABNORMAL) COMPREHENSIVE METABOLIC PANEL (02/07/2025 5:25 AM CDT) GLUCOSE 111(H) 70 - 99 MG/DL 02/07/2025 9:46 AM CDT [facility] BUN 39(H) 7 - 18 MG/DL 02/07/2025 9:46 AM CDT [facility] CREATININE S/P/B 3.56(H) 0.50 - 1.20 MG/DL 02/07/2025 9:46 AM CDT [facility] SODIUM S/P/B 137 136 - 145 MMOL/L 02/07/2025 9:46 AM CDT [facility] POTASSIUM S/P/B 3.0(LL) 3.5 - 5.1 MMOL/L 02/07/2025 9:46 AM CDT [facility] Comment: ALERT VALUE CALLED TO AND READ BACK BY: CHRISTIAN ROTH @ [facility] [id number] AJD CHLORIDE S/P/B 95(L) 100 - 108 MMOL/L 02/07/2025 9:46 AM CDT [facility] CO2 26.8 21.0 - 32.0 MMOL/L 02/07/2025 9:46 AM CDT [facility] CALCIUM S/P/B 8.9 8.5 - 10.1 MG/DL 02/07/2025 9:46 AM CDT [facility] BILIRUBIN TOTAL S/P/B 2.6(H) 0.2 - 1.2 MG/DL 02/07/2025 9:46 AM CDT [facility] Comment: THIS ASSAY IS NOT RECOMMENDED FOR PATIENTS UNDERGOING TREATMENT WITH ELTROMBOPAG DUE TO THE POTENTIAL FOR FALSELY ELEVATED RESULTS. TOTAL PROTEIN S/P/B 6.4 6.4 - 8.2 G/DL 02/07/2025 9:46 AM CDT [facility] ALBUMIN S/P/B 2.8(L) 3.4 - 5.0 G/DL 02/07/2025 9:46 AM CDT [facility] AST 65(H) 15 - 37 U/L 02/07/2025 9:46 AM CDT [facility] ALT 44 14 - 55 U/L 02/07/2025 9:46 AM CDT [facility] ALKALINE PHOSPHATASE S/P/B 110 50 - 136 U/L 02/07/2025 9:46 AM CDT [facility] ANION GAP 15.2(H) 5.0 - 15.0 MMOL/L 02/07/2025 9:46 AM CDT [facility] BUN CREATININE RATIO 11.0 6 - 26 02/07/2025 9:46 AM CDT [facility] A/G RATIO 0.8(L) 1.0 - 2.5 RATIO 02/07/2025 9:46 AM CDT [facility] GFR ESTIMATE 13(L) >90 ML/MIN/1.7 3 M2 02/07/2025 9:46 AM CDT [facility] Comment: NOTE: eGFR is not calculated for patients <18 years of age. This is an estimated GFR calculation using the new CKD EPI creatinine equation without race and so does not require a correction factor for race. This estimated GFR should not be used for calculating drug doses. 02/07/2025 5:25 AM CDT us Nikolas Arnett DO LABORATORY Final Result [facility] [address] [place] [address], [place] documented in this encounter Visit Diagnoses Diagnosis Examination, medical, general- Primary Unspecified general medical examination documented in this encounter
--- OUTSIDE RECORDS SUMMARY | 2025-02-07 15:26 | XMS_ITS | Clinical Summary ---
Author Organization [facility] [address] Address [address] [place] [address] Care Team Providers Care Tow Boat Captain Name Role Phone Yannick Umanzor DO Primary Care Provider [phone] Allergies Active Allergy Reactions Criticality Noted Date [...] on file Legal Sex Female 1:37 AM FURNITURE BUILDER Gender Identity Female 01/02/2024 7:43 PM CDT Sexual Orientation Straight 01/02/2024 7 :43 PM CDT Obstetrics History Last Filed Vital Signs Vital Sign Reading Time Taken Comments Blood Pressure 142/60 12/31/2023 2:20 PM CDT Pulse 70 12/31/2023 2:20 PM CDT Temperature 36.4 C (97.6 F) 10/18/2020 9:01 AM FURNITURE BUILDER Respiratory Rate 20 10/18/2020 9:01 AM FURNITURE BUILDER Oxygen Saturation 95% 12/03/2023 1:24 PM CDT [...] SCREENING MAMMOGRAM Routine 09/25/2013 1 0:31 AM FURNITURE BUILDER from Last 3 Months or Most Recently Relevant to Health Maintenance Results * Screening Mammogram (09/25/2013 10:31 AM FURNITURE BUILDER) Anatomical Region Laterality Modality Breast N/A Mammography 09/25/2013 10:3 1 AM FURNITURE BUILDER Narrative 09/29/2013 8:47 AM FURNITURE BUILDER SONNY ABDI M.D. FINAL REPORT ACC# Date Time Exam [id number] Sep 25, 2013 10:31:00 BMV [id number] Frederick Screening Mamm Technologist(s): Vale Curran; ; EXAMINATION: Mammogram Technique: Bilateral Full-Field Digital Screening Mammogram was performed. Views obtained: bilateral craniocaudal and bilateral mediolateral oblique. Computer Aided Detection was performed with Sribu.3 version 9.3. Mammogram Findings: The present examination has been compared to a prior imaging study performed at [facility] on 09/23/2012. [...] M.D. FINAL REPORT ACC# Date Time Exam [id number] Sep 25, 2013 10:31:00 [id number] [id number] Frederick Screening Mamm Technologist(s): Vale Curran; ; EXAMINATION: Mammogram Technique: Bilateral Full-Field Digital Screening Mammogram was performed. Views obtained: bilateral craniocaudal and bilateral mediolateral oblique. Computer Aided Detection was performed with Vidavee 1.3 version 9.3. Mammogram Findings: The present examination has been compared to a prior imaging study performed at [facility] on09/23/2012. There [...] Most Recently Relevant to Health Maintenance Insurance [facility] Member Subscriber Plan / Payer ( fective 2010-Present) Name:Leydi Su Member ID:[id number] Relation to Subscriber:Self Name:Leydi Su Subscriber ID:[id number] Payer ID:[id number] Type:Webinar.ru/PowerMessage Address: [address] MEDICARE [facility] [address] [facility] [address] MEDICARE MEDICARE [facility] [address] Care Teams Tow Boat Captain Relationship Specialty Start Date End Date Yannick Umanzor DO PCP - General Internal Medicine 10/18/20
--- OUTSIDE RECORDS SUMMARY | 2025-02-07 15:26 | XMS_ITS | Clinical Summary ---
Author Organization [facility] Address [address] [place] [address] Phone Care Team Providers Care Library Media Specialist Name Role Phone Yannick Umanzor DO Primary [...] 0.03 mg/spray spray, metered, non-aerosol Administer 1 [place] in each nostril 2 times daily. 4 [...] on file Legal Sex Female 4:51 AM BACKBREAKER Gender Identity Not on file Sexual Orientation Not on file Last Filed Vital Signs Vital Sign Reading Time Taken Comments Blood Pressure 126/69 08/02/2024 1:21 PM BACKBREAKER Pulse 77 08/02/2024 1:21 PM BACKBREAKER Temperature 36.8 C (98.2 F) 08/02/2024 1:21 PM BACKBREAKER Respiratory Rate 15 08/02/2024 1:21 PM BACKBREAKER Oxygen Saturation 94% 08/02/2024 1:2 1 PM BACKBREAKER Inhaled Oxygen Concentration - - Weight 83.3 kg (183 lb 9.6 oz) 08/02/2024 1:21 PM BACKBREAKER patient verbally confimed that she is trying to lose weight Height 162.6 cm (5' 4) 06/01/2022 8:50 AM CDT Body Mass Index 31.51 06/01/2022 8:50 AM CDT Plan of Treatment Upcoming Encounters Date Type Department Care Team (Late st Contact Info) Description 09/05/2025 10:00 AM BACKBREAKER Office Visit [facility] Oncology and Hematology - Cory [address] [facility] [address] [place] [address] Saul Perez MD [address] [address] [place] [address] Health Maintenance Due Date Last [...] 2031 Insurance MEDICARE PART A AND B [facility] B[facility]EFIT [facility] MEDICARE PART A AND B [facility] Advance Directives For more information, please contact: [phone] * Full Code (Latest Code Status on File) Date Activated Date Inactivated Comments 08/27/2014 7:51 AM 08/28/2014 8:33 AM * Full Code Date Activated Date Inactivated Comments 08/27/2014 5:59 AM 08/27/2014 7:51 AM Care Teams Library Media Specialist Relationship Specialty Start Date End Date Yannick Umanzor DO [address] [address] PCP - General Internal Medicine 11/07/21
--- OUTSIDE RECORDS SUMMARY | 2025-02-07 15:26 | XMS_ITS | Clinical Summary ---
Author Organization [facility] Care Team Providers Care Beam Sealer Name Role Phone Unavailable Primary Care Provider Unavailabl e Encounters Date Type Department Care Team Description 11/11/2024 Lab Requisition [facility] Services [address] [place] [address] Nikolas Arnett DO Anemia, unspecified [...] - 12.00 10(3)/mcL 11/11/2024 10:30 AM CDT [facility] RBC 4.49 3.80 - 5.30 10(6)/mcL 11/11/2024 10:30 AM CDT [facility] HEMOGLOBIN (HGB) 14.4 12.0 - 15.8 g/dL 11/11/2024 10:30 AM CDT [facility] HEMATOCRIT (HCT) 43.5 36.0 - 47.0 % 11/11/2024 10:30 AM CDT [facility] MCV 96.9(H) 82.0 - 96.0 fL 11/11/2024 10:30 AM CDT [facility] MCH 32.1 26.0 - 34.0 pg 11/11/2024 10:30 AM CDT [facility] MCHC 33.1 31.0 - 36.0 g/dL 11/11/2024 10:30 AM CDT [facility] PLATELET COUNT 272 140 - 440 10(3)/[facility] 11/11/2024 10:30 AM CDT [facility] RDW 13.6 11.8 - 15.5 % 11/11/2024 10:30 AM CDT [facility] MPV 9.5(L) 9.7 - 12.4 fL 11/11/2024 10:30 AM CDT [facility] NEUTROPHILS 69.4 47.0 - 73.0 % 11/11/2024 10:30 AM CDT [facility] LYMPHOCYTES 18.4 18.0 - 42.0 % 11/11/2024 10:30 AM CDT [facility] MONOCYTES 9.9 4.0 - 12.0 % 11/11/2024 10:30 AM CDT [facility] EOSINOPHILS 1.7 0.0 - 5.0 % 11/11/2024 10:30 AM CDT [facility] BASOPHILS 0.6 0.0 - 1.0 % 11/11/2024 10:30 AM CDT [facility] ABSOLUTE NEUTROPHILS 7.54 1.60 - 7.70 10(3)/mcL 11/11/2024 10:30 AM CDT [facility] ABSOLUTE LYMPHOCYTES 1.99 1.30 - 3.20 10(3)/mcL 11/11/2024 10:30 AM CDT [facility] ABSOLUTE MONOCYTES 1.07(H) 0.20 - 1.00 10(3)/mcL 11/11/2024 10:30 AM CDT [facility] ABSOLUTE EOSINOPHIL 0.18 0.00 - 0.40 10(3)/mcL 11/11/2024 10:30 AM CDT [facility] ABSOLUTE BASOPHILS 0.06 0.00 - 0.10 10(3)/mcL 11/11/2024 10:30 AM CDT [facility] NRBC PER 100 WBC 0 11/12/19 10:30 AM CDT [facility] Blood No Phlebotomy Charged / Unknown 11/11/2024 8:30 AM CDT 11/11/2024 10:17 AM CDT Nikolas Arnett DO HEMATOLOGY ORDERABLES Final Resu lt [facility] [address] [place] [address] * (ABNORMAL) CMP (COMPREHENSIVE METABOLIC PANEL) (11/11/2024 8:30 AM CDT) SODIUM 141 136 - 145 mmol/L 11/11/2024 11:03 AM CDT [facility] POTASSIUM 2.8(L) 3.5 - 5.1 mmol/L 11/11/2024 11:03 AM CDT [facility] CHLORIDE 102 98 - 107 mmol/L 11/11/2024 11:03 AM CDT [facility] CO2, VENOUS 24 22 - 30 mmol/L 11/11/2024 11:03 AM CDT [facility] ANION GAP 17.8 <18.0 mmol/L 11/11/2024 11:03 AM CDT [facility] GLUCOSE 98 70 - 99 mg/dL 11/11/2024 11:03 AM CDT [facility] BUN 15 10 - 20 mg/dL 11/11/2024 11:03 AM CDT [facility] CREATININE, BLOOD 1.39(H) 0.60 - 1.00 mg/dL 11/11/2024 11:03 AM CDT [facility] BUN/CREATININE RATIO 11(L) 12 - 20 ratio 11/11/2024 11:03 AM T [facility] TOTAL PROTEIN 6.5 6.0 - 8.0 g/dL 11/11/2024 11:03 AM [facility] ALBUMIN 3.5 3.5 - 5.0 g/dL 11/11/2024 11:03 AM [facility] A/G RATIO 1.2 1.0 - 2.2 11/11/2024 11:03 AM [facility] CALCIUM 9.0 8.7 - 10.5 mg/dL 11/11/2024 11:03 AM [facility] T BILI 0.9 0.2 - 1.2 mg/dL 11/11/2024 11:03 AM [facility] SGOT (AST) 68(H) <43 U/L 11/11/2024 11:03 AM [facility] SGPT (ALT) 27 <56 U/L 11/11/2024 11:03 AM [facility] ALKALINE PHOSPHATASE 55 40 - 150 U/L 11/11/2024 11:03 AM [facility] GFR, ESTIMATED 41(L) >=60 11/11/2024 11:03 AM [facility] Comment: Creatinine Clearance is the preferred criteria for selecting drug dose adjustments in renally impaired patients. The GFR is provided as additional pertinent clinical information. GFR is reported in mL/min/1.73 sq m. Calculation based on the Chronic Kidney Disease Epidemiology Collaboration (CKD- EPI) equation refit without adjustment for race. GFR, EST. 46(L) >=60 025 11:03 AM [facility] GFR, EST. NONAFRICAN 38(L) >=60 11/11/2024 11:03 AM [facility] Blood No Phlebotomy Charged / Unknown 11/11/2024 8:30 AM T 11/11/2024 10:17 AM CDT us Nikolas Arnett DO CHEMISTRY ORDERABLES Final Resul t [facility] [place] [address] from Last 3 Months
--- OUTSIDE RECORDS SUMMARY | 2025-02-07 15:26 | XMS_ITS | Encounter Summary ---
Author Organization [facility] Address [address] [place] [address] Care Team Providers Care Hot Iron Worker Name Role Phone JaviersvetlanaYannick talleyian Primary Care Provider Encounter Details Date Type Department Care Team (Late st Contact Info) Description 07/30/2005 Outpatient Historical [facility] Nikolas Bowie Jr., [place] [facility] [place] [address] Er, Authorized P NO ADDRESS ON FILE UNSPECIFIED VIRAL INFECTION (Primary Dx) Social History Tobacco Use Types Packs/Day Years Used Date Smoking Tobacco: Never Assessed Comments Unknown Sex and Gender Information Value Date Recorded Sex Assigned at Not on file Legal Sex Female 4:51 AM CONTACT PERSON Gender Identity Not on file Sexual Orientation Not on file documented as of this encounter Plan of Treatment Upcoming Encounters Date Type Department Care Team (Late st Contact Info) Description 09/05/2025 10:00 AM CONTACT PERSON Office Visit [facility] Oncology and Hematology - [place] [address] [facility] [address] [place] [address] Saul Perez MD [address] [facility] [address] [place] [address] documented as of this encounter Procedures Procedure Name Priority Date/Time Associated Diagnosis Comments CBC WITH DIFFERENTIAL Routine 07/30/2005 4:06 PM CONTACT PERSON CBC WITH DIFFERENTIAL Routine 07/30/2005 4:06 PM CONTACT PERSON documented in this encounter Results * (ABNORMAL) CBC WITH DIFFERENTIAL (07/30/2005 4:06 PM CONTACT PERSON) Pathologist [facility] NEUTROPHILS 83(H) 45 - [...] 0.20 K/uL INTERFACE SYSTEM 07/30/2005 4:06 PM CONTACT PERSON Historical Provider HEMATOLOGY ORDERABLES Final Result INTERFACE SYSTEM Refer to clinic/hospital department * (ABNORMAL) CBC WITH DIFFERENTIAL (07/30/2005 4:06 PM CONTACT PERSON) Pathologist [facility] WBC 12.9(H) 4.0 - [...] 12.4 fL INTERFACE SYSTEM 07/30/2005 4:06 PM CONTACT PERSON us Historical Provider HEMATOLOGY ORDERABLES Final Result INTERFACE SYSTEM Refer to clinic/hospital department documented in this encounter Visit Diagnoses Diagnosis Unspecified viral infection, in conditions classified elsewhere and of unspecified site- Primary documented in this encounter Care Teams Hot Iron Worker Relationship Specialty Start Date End Date Yannick Umanzor DO [address] [facility] [place] [address] PCP - General Internal Medicine 11/07/21 documented as of this encounter
--- OUTSIDE RECORDS SUMMARY | 2025-02-07 15:26 | XMS_ITS | CONTINUITY OF CARE DOCUMENT ---
Author Name josh moreno Address Unknown Organization [facility] Address [address] [place] [address] Phone [phone] Care Team Providers Care Box Office Attendant Name Role Phone Tyrese APPIAH, Eloisa Unavailable INSURANCE PROVIDERS Payer name Policy type / Coverage type [employer] party ID [place] [id number] [employer] OPEN ACCESS Other [id number]
--- NOTE | 2025-02-07 15:37 | ED_ITS ---
HPI - General Adult General Chief complaint: Altered Mental Status Stated complaint: ABN Labs Time Seen by Provider: 02/07/25 13:11 History of Present Illness HPI narrative: Patient is a 69-year-old female who presents ER with alteration mental status from her correction. Patient recently transferred to this correction they are unsure of her baseline. Patient is awake and oriented x1 but does a lot of mumbling and appears weak. This physician evaluated patient 2 weeks ago when she is markedly more alert and able to converse. Related Data Home Medications ?Medication ?Instructions ?Recorded ?Confirmed ?Last Taken ?Type duloxetine 60 mg capsule,delayed 60 mg PO Q12H 01/21/21 12/20/24 Unknown History release (Cymbalta) cholecalciferol (vitamin D3) 250 250 mcg PO 1200 01/02/22 12/20/24 Unknown History mcg (10,000 unit) capsule trazodone 100 mg tablet 200 mg PO QHS PRN Insomnia 01/02/22 12/20/24 Unknown History ascorbic acid (vitamin C) 1,000 mg 2 g PO 1200 09/08/23 12/20/24 Unknown History chewable tablet aspirin 81 mg tablet,delayed 81 mg PO DAILY 09/08/23 12/20/24 Unknown History release bupropion HCl 150 mg 24 hr tablet, 150 mg PO HS 09/08/23 12/20/24 Unknown History extended release carvedilol 12.5 mg tablet 12.5 mg PO Q12H 09/08/23 12/20/24 Unknown History ferrous sulfate 325 mg (65 mg 325 mg PO 1200 09/08/23 12/20/24 Unknown History iron) tablet lamotrigine 200 mg tablet 200 mg PO Q12H 09/08/23 12/20/24 Unknown History oxybutynin chloride 10 mg 10 mg PO DAILY 09/08/23 12/20/24 Unknown History tablet,extended release 24 hr sertraline 100 mg tablet 100 mg PO Q12H 09/08/23 12/20/24 Unknown History vitamin B complex 2 tablet PO 1200 09/08/23 12/20/24 Unknown History varenicline tartrate 0.03 mg/spray 0.03 mg intranasal Q12H 03/14/24 12/20/24 Unknown History metered nasal spray (Tyrvaya) acetaminophen 325 mg capsule 650 mg PO Q4H PRN pain (scale 12/20/24 12/20/24 Unknown History score 1-3) loperamide 2 mg tablet 2 mg PO QID PRN diarrhea 12/20/24 12/20/24 Unknown History (Anti-Diarrheal (loperamide)) Allergies Allergy/AdvReac Type Severity Reaction Status Date / Time acyclovir (From Zovirax) Allergy Severe Hives Verified 01/22/25 14:55 Iodinated Contrast Media Allergy Intermediate Rash Verified 01/22/25 14:55 omeprazole (From Prilosec) AdvReac Intermediate hyperventil Verified 01/22/25 14:55 ate Review of Systems 2 Review of Systems: ROS unobtainable: Yes unobtainable due to medical condition PMFSH Past Medical History Medical History CKD (chronic kidney disease) Nocturnal oxygen desaturation Body mass index (BMI) of 40.1-44.9 in adult Deafness in left ear JERED (iron deficiency anemia) Lymphedema Dysuria Fracture of left upper extremity Distal radius fracture, left July 2020 Shortness of Breath Decreased diffusion capacity History of tobacco abuse Exercise hypoxemia Brain tumor HTN (hypertension) Obstructive sleep apnea on CPAP Bipolar 1 disorder SIMEON (obstructive sleep apnea) With CPAP use GERD (gastroesophageal reflux disease) Depression Anxiety Surgical History Surgical History History of bladder suspension procedure March 2017 Hx of tonsillectomy History of brain surgery 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 She has 3 children. She is disabled. She quit smoking 5 years ago. The patient denies any marijuana alcohol or illicit drugs. Her is a durable power charge auditor for healthcare. Primary care physician: Dr. Yannick Umanzor Code status: Full code Smoking packs per day: 1 Smoking cigarettes per day: 20.0 Years smoked: 40 Smoking pack-years: 40.00 Smoking status: Former smoker Tobacco type: cigarettes Second hand tobacco smoke exposure: No Smoking end date: 08/23/14 Alcohol intake: never Substance use: never Substance use type: does not use Do You Feel Safe in your Home?: Yes Lack of Transportation: No Lack of Food: Never True Current Housing: I Have Housing Concerned About Future Housing: No Difficulty Paying Gas/Electric Bills: No Difficulty Paying for Meds: No Currently Unemployed: No Education: Associate Degree Difficulty w/ Childcare or Family Care: No Living arrangements: with family Additional living arrangements comments: [facility] [place] Occupation/Education: retired Additional occupation/education comments: 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 Gender identity (if verbalized by the patient): Female Spiritual care concerns: No Exam 2 Narrative: GENERAL: Ill-appearing, well-nourished, and in no acute distress. HEAD: Normocephalic, atraumatic. EYES: PERRL and EOMI. ENT: Dry mucous membranes. CHEST: Clear to auscultation. No respiratory distress. HEART: Regular rate and rhythm. Normal peripheral pulses. ABDOMEN: Soft, nontender, nondistended. EXTREMITIES: Normal range of motion. No edema. SKIN: Warm, dry, no rash. NEURO: Alert and oriented x1. PSYCH: Normal mood and affect. Course Course Emergency Course: Patient has had some diarrhea in the room. Abdomen was soft nontender. May have enteritis given leukocytosis. Patient does have JERRY in significant hypo kalemia which is being repleted both orally and IV. Admit to the hospitalist service. Vital Signs Vital signs: Vital Signs Temperature 98.0 F 02/07/25 13:14 Pulse Rate 71 02/07/25 13:14 Respiratory Rate 18 02/07/25 13:14 Blood Pressure 111/54 L 02/07/25 13:14 Pulse Oximetry 99 02/07/25 13:14 Oxygen Delivery Room Air 02/07/25 13:14 Temperature 97.7 F 02/07/25 15:58 Pulse Rate 75 02/07/25 15:58 Respiratory Rate 23 H 02/07/25 15:58 Blood Pressure 114/91 H 02/07/25 15:58 Pulse Oximetry 98 02/07/25 15:58 Oxygen Delivery Room Air 02/07/25 13:20 Medical Decision Making Vital Signs Vital Signs: Vital Signs Temperature 98.0 F 02/07/25 13:14 Pulse Rate 71 02/07/25 13:14 Respiratory Rate 18 02/07/25 13:14 Blood Pressure 111/54 L 02/07/25 13:14 Pulse Oximetry 99 02/07/25 13:14 Oxygen Delivery Room Air 02/07/25 13:14 Temperature 97.7 F 02/07/25 15:58 Pulse Rate 75 02/07/25 15:58 Respiratory Rate 23 H 02/07/25 15:58 Blood Pressure 114/91 H 02/07/25 15:58 Pulse Oximetry 98 02/07/25 15:58 Oxygen Delivery Room Air 02/07/25 13:20 Lab Data 02/07/25 13:41 02/07/25 13:41 Labs: Lab Results 02/07/25 02/07/25 Range/Units 13:41 14:33 WBC 15.4 H (4.5-10.0) K/mm3 RBC 3.78 L (4.2-5.4) M/mm3 Hgb 11.9 L (12.0-15.0) g/dL Hct 34.1 L (37.0-47.0) % MCV 90.2 (80-100) fl MCH 31.5 (26-34) pg MCHC 34.9 (32-36) g/dl RDW 14.4 (11.5-14.5) % Plt Count 245 (150-375) k/mm3 MPV 9.6 (7.4-10.4) fl Immature Gran % (Auto) 1.2 H (0-0.5) % Neut % (Auto) 83.5 H (45.5-73.1) % Lymph % (Auto) 5.8 L (18.3-44.2) % [place] % (Auto) 9.4 H (2.6-8.5) % Eos % (Auto) 0.0 (0-4.4) % Baso % (Auto) 0.1 L (0.2-1.2) % Lymph # (Auto) 0.89 L (0.9-3.2) K/mm3 [place] # (Auto) 1.5 H (0.1-0.6) K/mm3 Eos # (Auto) 0.0 (0-0.3) K/mm3 Baso # (Auto) 0.0 (0.0-0.1) K/mm3 Abs Immat Gran (auto) 0.18 H (0.00-0.031) K/mm3 Absolute Neuts (auto) 12.9 H (1.3-6.7) K/mm3 Absolute Nucleated RBC 0.060 H (0.0-0.012) K/mm3 Nucleated RBC % 0.4 H (0.0-0.2) % Sodium 133 L (137-145) mmol/L Potassium < 2.0 L* (3.4-5.0) mmol/L Chloride 95 L (98-107) mmol/L Carbon Dioxide 28 (22-30) mmol/L Anion Gap 10 (4-12) mmol/L BUN 45 H D (7-17) mg/dL Creatinine 3.63 H (0.7-1.0) mg/dL Estim Creat Clear Calc Not Reportable Estimated GFR 12 L (59 - ) Glucose 130 H (65-110) mg/dL Lactic Acid 1.4 (0.7-2.0) mmol/L Calcium 8.7 (8.4-10.2) mg/dL Total Bilirubin 1.3 (0.2-1.3) mg/dL AST 57 H (14-36) U/L ALT 46 H (6-35) U/L Alkaline Phosphatase 101 (38-126) U/L Total Protein 6.0 L (6.3-8.2) g/dL Albumin 3.1 L (3.5-5.1) g/dL Urine Color Dark yellow (Yellow) Urine Appearance Cloudy H (Clear) Urine pH 5.0 (5.0-9.0) Ur Specific [place] 1.023 (1.001-1.035) Urine Protein 1+ H (Negative) mg/dL Urine Glucose (UA) Negative (Negative) mg/dL Urine Ketones Trace H (Negative) mg/dL Ur Blood (Man) Negative (Negative) Urine Nitrate Negative (Negative) Urine Bilirubin 1+ H (Negative) Urine Urobilinogen 1.0 (<2.0) mg/dL Add Ur Microanalysis Reviewed Leukocyte Esterase Rfl 2+ H (Negative) ROBYN/UL Urine RBC 11-20 H (0-2) /hpf Urine WBC 11-20 H (0-3) /hpf Ur Squamous Epith Cells Moderate (Few) /hpf Urine Bacteria None seen /hpf Urine Casts >20 Hyaline Casts Present (None) /lpf Urine Mucus Present /lpf Urine Yeast (Budding) Present H (None) /hpf C. difficile (PCR) Negative (NEGATIVE) Discharge Plan Discharge Clinical Impression: Acute hypokalemia, JERRY (acute kidney injury), Acute alteration in mental status, Enteritis Patient Disposition: Still a Patient Condition: Stable Patient Language: Danish Prescriptions: No Action duloxetine [Cymbalta] 60 mg capsule,delayed release(DR/EC) 60 mg PO Q12H Tyrvaya 0.03 mg/spray spray, metered, non-aerosol 0.03 mg intranasal Q12H Rx Instructions: administer into each nostril; approximately 12 hours apart cholecalciferol (vitamin D3) 250 mcg (10,000 unit) capsule 250 mcg PO 1200 trazodone 100 mg tablet 200 mg PO QHS PRN (Reason: Insomnia) acetaminophen 325 mg capsule 650 mg PO Q4H PRN (Reason: pain (scale score 1-3)) loperamide [Anti-Diarrheal (loperamide)] 2 mg tablet 2 mg PO QID PRN (Reason: diarrhea) cephalexin 500 mg Capsule 500 mg PO Q12HR Qty: 10 0RF lorazepam 2 mg tablet 2 mg PO Q12H Qty: 10 0RF chlorhexidine gluconate 0.12 % mouthwash 15 ml mucous membrane BID Qty: 300 0RF amoxicillin-pot clavulanate 875-125 mg tablet 1 tablet PO Q12H Qty: 20 0RF hydrocodone-acetaminophen 5-325 mg tablet 1 tablet PO Q6H PRN (Reason: pain) Qty: 12 0RF carvedilol 12.5 mg tablet 12.5 mg PO Q12H sertraline 100 mg tablet 100 mg PO Q12H ferrous sulfate 325 mg (65 mg iron) Tablet 325 mg PO 1200 ascorbic acid (vitamin C) 1,000 mg Tablet,Chewable 2 g PO 1200 vitamin B complex Tablet,Chewable 2 tablet PO 1200 lamotrigine 200 mg tablet 200 mg PO Q12H oxybutynin chloride 10 mg tablet extended release 24hr 10 mg PO DAILY bupropion HCl 150 mg tablet extended release 24 hr 150 mg PO HS aspirin 81 mg Tablet,Delayed Release (Dr/Ec) 81 mg PO DAILY (DME) Overnight Ox See Rx Instructions .Route .MEDSUPPLY Qty: 1 0RF Rx Instructions: Overnight Oximetry 4 L/Min BIPAP DX Code: G47.33 Length of Need: Lifetime DME:Nory Cannon MDNPI: [id number] albuterol sulfate 90 mcg/actuation HFA aerosol inhaler 1 - 2 puff inhalation Q4-6H PRN (Reason: shortness of breath or wheezing) Qty: 8.5 2RF pantoprazole 40 mg tablet,delayed release (DR/EC) See Rx Instructions .ROUTE .COMPLEX Qty: 90 1RF Dose Instruction: TAKE 1 TABLET BY MOUTH EVERY DAY IN THE MORNING Rx Instructions: TAKE 1 TABLET BY MOUTH EVERY DAY IN THE MORNING amlodipine 5 mg tablet 5 mg PO HS Qty: 90 0RF Wegovy 1 mg/0.5 mL pen injector 1 mg subcut Q7D Qty: 2 0RF hydrochlorothiazide 12.5 mg tablet 12.5 mg PO QAM Qty: 90 1RF Follow-up/Referrals: Yannick Umanzor, [Primary Care Provider] -
[2025-02-07] MEDS: LORazepam INJ (*CRX) 2 MG/ML VIAL 1 MG IV PUSH (15:38)
--- NOTE | 2025-02-07 17:57 | P.HP_ITS ---
H&P: HPI History of Present Illness Date/Time: 02/07/25 17:57 Chief Complaint: Altered mental status Narrative: 69-year-old female history of bipolar 1, hypertension, brain tumor, iron deficiency anemia, CKD and SIMEON presents to the hospital with altered mental status from a assisted. HPI is limited due to altered mental status. Per the the patient had a fall was found to have a brain bleed and was transferred to [facility] and then discharged to rehab and then sent to a assisted due to not progressing in rehab. She has been wheelchair- bound. He states that over the last couple days she became more and more withdrawn. He is unaware of her having another fall Lab work in the ED shows leukocytosis at 15.4, hemoglobin of 11.9, sodium of 133, potassium a less than 2, creatinine of 3.36 baseline being 1, GFR 12, AST 57 ALT 46, UA with 2+ leukocyte esterase moderate squamous cells negative nitrates and yeast, and C diff is negative, Review of Systems Review of Systems: ROS unobtainable: Yes unobtainable due to mental status PMFSH Past Medical History Medical History CKD (chronic kidney disease) Nocturnal oxygen desaturation Body mass index (BMI) of 40.1-44.9 in adult Deafness in left ear JERED (iron deficiency anemia) Lymphedema Dysuria Fracture of left upper extremity Distal radius fracture, left July 2020 Shortness of Breath Decreased diffusion capacity History of tobacco abuse Exercise hypoxemia Brain tumor HTN (hypertension) Obstructive sleep apnea on CPAP Bipolar 1 disorder SIMEON (obstructive sleep apnea) With CPAP use GERD (gastroesophageal reflux disease) Depression Anxiety Surgical History Surgical History History of bladder suspension procedure March 2017 Hx of tonsillectomy History of brain surgery 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 She has 3 children. She is disabled. She quit smoking 5 years ago. The patient denies any marijuana alcohol or illicit drugs. Her is a durable power managing attorney for healthcare. Primary care physician: Dr. Yannick Umanzor Code status: Full code Smoking packs per day: 1 Smoking cigarettes per day: 20.0 Years smoked: 40 Smoking pack-years: 40.00 Smoking status: Former smoker Tobacco type: cigarettes Second hand tobacco smoke exposure: No Smoking end date: 08/23/14 Alcohol intake: never Substance use: never Substance use type: does not use Do You Feel Safe in your Home?: Yes Lack of Transportation: YES Lack of Food: Never True Current Housing: I Have Housing Concerned About Future Housing: No Difficulty Paying Gas/Electric Bills: No Difficulty Paying for Meds: No Currently Unemployed: No Education: Associate Degree Difficulty w/ Childcare or Family Care: No Living arrangements: with family Additional living arrangements comments: [facility] Occupation/Education: retired Additional occupation/education comments: 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 Gender identity (if verbalized by the patient): Female Spiritual care concerns: No Meds Home Medications and Allergies Home Medications ?Medication ?Instructions ?Recorded ?Confirmed ?Type duloxetine 60 mg capsule,delayed 60 mg PO Q12H 01/21/21 02/07/25 History release (Cymbalta) Overnight Ox #1 ea 05/13/22 02/07/25 Rx albuterol sulfate 90 mcg/actuation 1 - 2 puff inhalation Q4-6H PRN 02/08/23 02/07/25 Rx aerosol inhaler shortness of breath or wheezing #8.5 grams ascorbic acid (vitamin C) 1,000 mg 1 g PO DAILY 09/08/23 02/07/25 History chewable tablet aspirin 81 mg tablet,delayed 81 mg PO DAILY 09/08/23 02/07/25 History release carvedilol 12.5 mg tablet 18.75 mg PO Q12H 09/08/23 02/07/25 History ferrous sulfate 325 mg (65 mg 325 mg PO DAILY 09/08/23 02/07/25 History iron) tablet lamotrigine 200 mg tablet 200 mg PO Q12H 09/08/23 02/07/25 History oxybutynin chloride 10 mg 10 mg PO DAILY 09/08/23 02/07/25 History tablet,extended release 24 hr sertraline 100 mg tablet 100 mg PO DAILY 09/08/23 02/07/25 History varenicline tartrate 0.03 mg/spray 0.03 mg intranasal Q12H 03/14/24 02/07/25 History metered nasal spray (Tyrvaya) acetaminophen 325 mg capsule 650 mg PO Q4H PRN pain (scale 12/20/24 02/07/25 History score 1-3) hydrochlorothiazide 12.5 mg tablet 12.5 mg PO QAM #90 tabs 01/17/25 02/07/25 Rx hydrocodone 5 mg-acetaminophen 325 1 tablet PO Q6H PRN pain #12 tabs 01/22/25 02/07/25 Rx mg tablet inulin 1.7 gram chewable tablet 3.4 g PO DAILY 02/07/25 02/07/25 History (Fiber Gummies) lorazepam 2 mg tablet 2 mg PO TID 02/07/25 02/07/25 History menthol 0.44 %-zinc oxide 20.6 % 1 applic topical DAILY PRN skin 02/07/25 02/07/25 History topical ointment (CalaSoothe) irritation polyethylene glycol 3350 17 17 g PO DAILY PRN constipation 02/07/25 02/07/25 History gram/dose oral powder polyvinyl alcohol-povidone 0.5 1 drp EACH EYE Q60M PRN dry eye(s) 02/07/25 02/07/25 History %-0.6 % eye drops (Artificial Tears (polyvinyl alcohol/povidone)) semaglutide (weight loss) 1 mg/0.5 1 mg subcut .biweekly 02/07/25 02/07/25 History mL subcutaneous pen injector (Wegovy) sennosides 8.6 mg capsule (senna) 8.6 mg PO HS 02/07/25 02/07/25 History Allergies Allergy/AdvReac Type Severity Reaction Status Date / Time acyclovir (From Zovirax) Allergy Severe Hives Verified 02/07/25 18:44 Iodinated Contrast Media Allergy Intermediate Rash Verified 02/07/25 18:44 omeprazole (From Prilosec) AdvReac Intermediate hyperventil Verified 02/07/25 18:44 ate Vital Signs Vital Signs - 24 hr 02/07/25 13:14 02/07/25 13:20 02/07/25 13:52 Temperature 98.0 F 97.5 F L Pulse Rate 71 81 Respiratory Rate 18 22 H Blood Pressure 111/54 L 72/53 L Pulse Oximetry 99 99 97 Oxygen Delivery Room Air Room Air 02/07/25 14:02 02/07/25 15:58 02/07/25 17:05 Temperature 97.4 F L 97.7 F 98.4 F Pulse Rate 81 75 81 Respiratory Rate 20 23 H 18 Blood Pressure 99/43 L 114/91 H 120/81 Pulse Oximetry 97 98 89 L Oxygen Delivery 02/07/25 17:14 Temperature 98.0 F Pulse Rate 72 Respiratory Rate 20 Blood Pressure 111/81 Pulse Oximetry 98 Oxygen Delivery Exam Narrative: General: Chronically ill, appears older than stated age HEENT: normocephalic, atraumatic. Mucous membranes moist. EOMI, PERRLA, bilateral sclera anicteric, no conjunctival injection. Neck supple without JVD, lymphadenopathy, or bruit. Respiratory: clear to ascultation bilaterally. No rales/rhonic/wheezes. Cardiovascular: Regular rate and rhythm, normal S1-S2 upon ascultation. No murmurs, rubs, or clicks. PMI is nondisplaced, capillary refill less than 3 second. Abdomen: Soft, round, no pulsatile masses, nondistended and nontender. No rebound, no guarding. No CVA tenderness, no hepatosplenomegaly. Bowel sounds present to all four quadrants. No high pitch or tinkling sounds, resonant to percussion. Extremities: No cyanosis, clubbing, Pulses are palpable 2/2. Patient has trouble following commands. 4+ lower extremity edema Neuro: Alert and orientated x 4. PERRLA. Cranial nerves 2-12 intact without focal deficit. Skin: Warm, dry, and intact, without rash, erythema, or lesion. Psych: Unable to assess H&P: Results Labs Labs: Short CBC 02/07/25 Range/Units 13:41 WBC 15.4 H (4.5-10.0) K/mm3 Hgb 11.9 L (12.0-15.0) g/dL Hct 34.1 L (37.0-47.0) % Plt Count 245 (150-375) k/mm3 BMP 02/07/25 13:41 Sodium 133 L Potassium < 2.0 L* Chloride 95 L Carbon Dioxide 28 BUN 45 H D Creatinine 3.63 H Glucose 130 H Calcium 8.7 Liver Function 02/07/25 Range/Units 13:41 Total Bilirubin 1.3 (0.2-1.3) mg/dL AST 57 H (14-36) U/L ALT 46 H (6-35) U/L Alkaline Phosphatase 101 (38-126) U/L Albumin 3.1 L (3.5-5.1) g/dL Urine 02/07/25 Range/Units 14:33 Urine Color Dark yellow (Yellow) Urine Appearance Cloudy H (Clear) Urine pH 5.0 (5.0-9.0) Ur Specific [place] 1.023 (1.001-1.035) Urine Protein 1+ H (Negative) mg/dL Urine Glucose (UA) Negative (Negative) mg/dL Assessment and Plan Assessment and plan (1) Altered mental status: Code(s): R41.82 - Altered mental status, unspecified Status: Acute Assessment and Plan: Infection verses stroke versus electrolyte imbalance versus other CT head no acute findings Replete electrolytes as needed IV antibiotics for infection Once patient is alert she will need a swallow evaluation Holding sedated of medications until more alert (2) JERRY (acute kidney injury): Code(s): N17.9 - Acute kidney failure, unspecified Status: Acute Assessment and Plan: IV fluids for hydration Repeat BMP Consider nephrology if no improvement in the morning (3) Acute hypokalemia: Code(s): E87.6 - Hypokalemia Status: Acute Assessment and Plan: Total of 80 mEq given in ED Recheck 2.5 Forty mEq ordered (4) UTI (urinary tract infection): Qualifiers: Hematuria presence: without hematuria Urinary tract infection type: acute cystitis Qualified Code(s): N30.00 - Acute cystitis without hematuria Code(s): N39.0 - Urinary tract infection, site not specified Status: Acute Assessment and Plan: Could be causing altered mental status Rocephin Culture and sensitivity pending IVF (5) Diarrhea: Code(s): R19.7 - Diarrhea, unspecified Status: Acute Assessment and Plan: Likely cause of acute dehydration and hypokalemia Negative for C diff Imodium (6) Bipolar disorder: Qualifiers: Active/Remission status: in remission of unspecified degree Qualified Code(s): F31.70 - Bipolar disorder, currently in remission, most recent episode unspecified Code(s): F31.9 - Bipolar disorder, unspecified Status: Acute Assessment and Plan: Patient will need to be restarted on Lamictal when she can swallow (7) HTN (hypertension): Qualifiers: Hypertension type: essential hypertension Qualified Code(s): I10 - Essential (primary) hypertension Code(s): I10 - Essential (primary) hypertension Status: Chronic Assessment and Plan: Currently holding hydrochlorothiazide till patient is alert (8) Diastolic dysfunction: Code(s): I51.89 - Other ill-defined heart diseases Status: Acute Assessment and Plan: Currently holding hydrochlorothiazide till patient is alert (9) Obstructive sleep apnea on CPAP: Code(s): G47.33 - Obstructive sleep apnea (adult) (pediatric); Z99.89 - Dependence on other enabling machines and devices Status: Acute Assessment and Plan: Does not appear to be on home CPAP Plan Home medications will need to be restarted when patient is alert enough to swallow Quality VTE Prophylaxis VTE prophylaxis: mechanical ordered and pharmacologic ordered Hospitalist MIPS Advance Care Plan I have confirmed that the patient's Advanced Care Plan is present, code status is documented, or surrogate decision maker is listed in patient medical record.: Yes Medication Reconciliation I have utilized all available resources to obtain, update and review the patients current medications (includes all prescriptions, OTC, herbals, cannabis, and nutritional supplements).: Yes
--- NOTE | 2025-02-07 18:15 | ADMGEN ---
This patient, Leydi Su, was admitted to IMU Room 232-01 @ 1705. pt open eyes -oriented to self and year. no family with pt at this time. Disoriented to place and month. pt says few words- speech delayed; pt oriented to room and routines of floor.ID bracelet, bed and alarms, visiting hours, pain management, procedures, bathroom and other care routines, personal items, smoking policy, ? if understands instructions
--- NOTE | 2025-02-07 18:44 | ADMGEN ---
This patient, Leydi Su, was admitted to IMU Room 232-01. Patient/family oriented to hospital policies and general routines including ID bracelet, bed and alarms, visiting hours, pain management, procedures, bathroom and other care routines, personal items, smoking policy, room service/diet, and visiting hours. Information on how to activate the Rapid Response Team has been discussed. Patient/Family are encouraged to report perceived risks to care and to ask questions if they do not understand what they are told or what they should do.
--- NOTE | 2025-02-07 19:08 | PC.NURSE ---
unable to obtain history or present activity- NH called no answer- and no family with pt
[2025-02-07 20:03] LABS: Potassium 2.5 mmol/L (3.4-5.0)
[2025-02-07] MEDS: SODIUM CHLORIDE 0.9% IV 1,000 ML 125 ML IV CONT (20:13)
[2025-02-07] MEDS: ACETAMINOPHEN 325 MG TABLET 650 MG PO (20:34)
[2025-02-08] VITALS (16 sets, daily range): BP systolic 101–148; BP diastolic 45–111; PULSE 66–90; RESP 20–24; TEMP 36.4–37.1; O2SAT 98–100; BMI 37.0
[2025-02-08] MEDS: ALBUMIN HUMAN 25% 25 GM/100 ML 100 ML IVPB (01:03)
[2025-02-08] MEDS: HYDROcodone/acetaminophen (*CRX) 5-325 MG TABLET 1 TAB PO ×2 (02:01→20:00)
[2025-02-08 04:18] LABS: Hematocrit 27.5 % (37.0-47.0); Hemoglobin 9.3 g/dL (12.0-15.0); Immature Granulocyte Percent A 1.2 % (0-0.5); Lymphocytes Absolute Auto 0.98 K/mm3 (0.9-3.2); Mean Corpuscular HGB Conc 33.8 g/dl (32-36); Mean Corpuscular Hemoglobin 31.6 pg (26-34); Mean Corpuscular Volume 93.5 fl (80-100); Nucleated Red Blood Cells Absolute Auto 0.030 K/mm3 (0.0-0.012); Nucleated Red Blood Cells Perc 0.3 % (0.0-0.2); Platelet Count Result 190 k/mm3 (150-375); Red Blood Count 2.94 M/mm3 (4.2-5.4); White Blood Count 10.9 K/mm3 (4.5-10.0)
[2025-02-08 04:30] LABS: Anion Gap 8 mmol/L (4-12); Blood Urea Nitrogen 44 mg/dL (7-17); Calcium 7.8 mg/dL (8.4-10.2); Carbon Dioxide 24 mmol/L (22-30); Chloride 105 mmol/L (98-107); Estimated CRCL calculation 19 ml/min; Estimated Glomerular Filt Rate 16; Glucose 98 mg/dL (65-110); Potassium 2.5 mmol/L (3.4-5.0); Sodium 137 mmol/L (137-145)
[2025-02-08 04:54] LABS: Magnesium 2.0 mg/dL (1.6-2.3)
[2025-02-08] MEDS: POTASSIUM CHLORIDE INJ 40 MEQ in SODIUM CHLORIDE 0.9% IV 500 ML 130 MEQ IVPB ×2 (05:22→18:42)
[2025-02-08] MEDS: POTASSIUM CHLORIDE 20 MEQ ER TABLET 40 MEQ PO (05:28)
[2025-02-08] MEDS: SODIUM CHLORIDE 0.9% IV 1,000 ML 75 ML IV CONT (09:50)
[2025-02-08] MEDS: SERTRALINE HCL 50 MG TABLET 100 MG PO (10:16)
[2025-02-08] MEDS: DULoxetine HCL 60 MG CAPSULE.DR PO (10:17)
[2025-02-08 13:08] LABS: Anion Gap 10 mmol/L (4-12); Blood Urea Nitrogen 41 mg/dL (7-17); Calcium 8.1 mg/dL (8.4-10.2); Carbon Dioxide 23 mmol/L (22-30); Chloride 106 mmol/L (98-107); Estimated CRCL calculation 21 ml/min; Estimated Glomerular Filt Rate 18; Glucose 147 mg/dL (65-110); Potassium 3.1 mmol/L (3.4-5.0); Sodium 139 mmol/L (137-145)
--- NOTE | 2025-02-08 15:06 | P.PNIM_ITS ---
Progress Note: A&P Assessment and Plan (1) Altered mental status: Code(s): R41.82 - Altered mental status, unspecified Status: Acute Assessment and Plan: Infection verses stroke versus electrolyte imbalance versus other CT head no acute findings Replete electrolytes as needed IV antibiotics for infection Once patient is alert she will need a swallow evaluation Holding sedated of medications until more alert PT/OT/ST (2) JERRY (acute kidney injury): Code(s): N17.9 - Acute kidney failure, unspecified Status: Acute Assessment and Plan: IV fluids for hydration Repeat BMP US renal Cr 2.94 baseline is normal , continue IVF (3) Acute hypokalemia: Code(s): E87.6 - Hypokalemia Status: Acute Assessment and Plan: replaced, continue monitoring (4) UTI (urinary tract infection): Qualifiers: Urinary tract infection type: acute cystitis Hematuria presence: without hematuria Qualified Code(s): N30.00 - Acute cystitis without hematuria Code(s): N39.0 - Urinary tract infection, site not specified Status: Acute Assessment and Plan: Could be causing altered mental status Rocephin Culture and sensitivity pending IVF (5) Diarrhea: Code(s): R19.7 - Diarrhea, unspecified Status: Acute Assessment and Plan: Likely cause of acute dehydration and hypokalemia Negative for C diff Imodium (6) Bipolar disorder: Qualifiers: Active/Remission status: in remission of unspecified degree Qualified Code(s): F31.70 - Bipolar disorder, currently in remission, most recent episode unspecified Code(s): F31.9 - Bipolar disorder, unspecified Status: Acute Assessment and Plan: Patient will need to be restarted on Lamictal when she can swallow (7) HTN (hypertension): Qualifiers: Hypertension type: essential hypertension Qualified Code(s): I10 - Essential (primary) hypertension Code(s): I10 - Essential (primary) hypertension Status: Chronic Assessment and Plan: Currently holding hydrochlorothiazide till patient is alert (8) Diastolic dysfunction: Code(s): I51.89 - Other ill-defined heart diseases Status: Acute Assessment and Plan: Currently holding hydrochlorothiazide till patient is alert (9) Obstructive sleep apnea on CPAP: Code(s): G47.33 - Obstructive sleep apnea (adult) (pediatric); Z99.89 - Dependence on other enabling machines and devices Status: Acute Assessment and Plan: Does not appear to be on home CPAP Plan DVT prophylaxis on Sq Heparin Subjective Date/time seen: 02/08/25 15:06 Interval history: Comfortable at bedside Review of Systems Review of Systems: 12 systems were reviewed and are negativ e except for as per HPI. ROS unobtainable: Yes unobtainable due to mental status Exam Narrative: General: Chronically ill, appears older than stated age HEENT: normocephalic, atraumatic. Mucous membranes moist. EOMI, PERRLA, bilateral sclera anicteric, no conjunctival injection. Neck supple without JVD, lymphadenopathy, or bruit. Respiratory: clear to ascultation bilaterally. No rales/rhonic/wheezes. Cardiovascular: Regular rate and rhythm, normal S1-S2 upon ascultation. No murmurs, rubs, or clicks. PMI is nondisplaced, capillary refill less than 3 second. Abdomen: Soft, round, no pulsatile masses, nondistended and nontender. No rebound, no guarding. No CVA tenderness, no hepatosplenomegaly. Bowel sounds present to all four quadrants. No high pitch or tinkling sounds, resonant to percussion. Extremities: No cyanosis, clubbing, Pulses are palpable 2/2. Patient has trouble following commands. 4+ lower extremity edema Neuro: Alert and orientated x 4. PERRLA. Cranial nerves 2-12 intact without focal deficit. Skin: Warm, dry, and intact, without rash, erythema, or lesion. Psych: Unable to assess Objective Data Vital Signs Vital Signs: Vital Signs - 24 hr 02/07/25 15:58 02/07/25 17:05 02/07/25 17:14 Temperature 97.7 F 98.4 F 98.0 F Pulse Rate 75 81 72 Respiratory Rate 23 H 18 20 Blood Pressure 114/91 H 120/81 111/81 Pulse Oximetry 98 89 L 98 Oxygen Delivery Oxygen Flow Rate 02/07/25 17:30 02/07/25 18:00 02/07/25 20:00 Temperature 99.4 F Pulse Rate 74 74 20 L Respiratory Rate 18 Blood Pressure 104/38 L Pulse Oximetry 96 Oxygen Delivery Oxygen Flow Rate 02/07/25 20:00 02/07/25 20:00 02/07/25 21:39 Temperature Pulse Rate 86 Respiratory Rate Blood Pressure Pulse Oximetry 97 Oxygen Delivery Room Air Autopap Oxygen Flow Rate 02/07/25 22:00 02/07/25 23:23 02/08/25 00:00 Temperature 97.8 F Pulse Rate 68 69 Respiratory Rate 20 Blood Pressure 104/50 L Pulse Oximetry 98 Oxygen Delivery Room Air Oxygen Flow Rate 02/08/25 00:00 02/08/25 04:00 02/08/25 04:00 Temperature Pulse Rate 68 72 Respiratory Rate Blood Pressure Pulse Oximetry Oxygen Delivery Room Air Oxygen Flow Rate 02/08/25 04:00 02/08/25 06:00 02/08/25 08:00 Temperature 98 F 97.5 F L Pulse Rate 72 80 72 Respiratory Rate 20 24 H Blood Pressure 101/45 L 127/49 L Pulse Oximetry 100 100 Oxygen Delivery Oxygen Flow Rate 02/08/25 08:00 02/08/25 08:15 02/08/25 10:00 Temperature Pulse Rate 71 80 Respiratory Rate Blood Pressure Pulse Oximetry 98 Oxygen Delivery Nasal Cannula Oxygen Flow Rate 2 02/08/25 10:17 02/08/25 12:00 02/08/25 12:00 Temperature 97.9 F Pulse Rate 76 73 74 Respiratory Rate 22 H Blood Pressure 148/98 H Pulse Oximetry 100 Oxygen Delivery Oxygen Flow Rate 02/08/25 14:00 Temperature Pulse Rate 66 Respiratory Rate Blood Pressure Pulse Oximetry Oxygen Delivery Oxygen Flow Rate Intake/Output Intake/Output: Intake & Output 02/05/25 02/06/25 02/07/25 02/08/25 23:59 23:59 23:59 23:59 Intake Total 1314.2 1020 Balance 1314.2 1020 Meds/Results Medications: Active Medications Generic Name Dose Route Start Last Admin Trade Name Freq PRN Reason Stop Dose Admin Acetaminophen 650 mg 02/07/25 15:41 02/07/25 20:34 Acetaminophen 325 Mg Tablet PO 650 mg Q4H PRN Administration Mild Pain (1-3) or Fever Hydrocodone Bitart/Acetaminophen 1 tab 02/07/25 15:41 02/08/25 02:01 Hydrocodone/Acetaminophen (*Crx) 5-325 Mg Tablet PO 1 tab Q4H PRN Administration Pain Rated 4-6 Artificial Tears 1 drop 02/08/25 09:32 Artificial Tears Ophth Soln 15 Ml Bottle EACH EYE 03/10/25 09:31 PRN PRN dry eye(s) Carvedilol 18.75 mg 02/08/25 09:00 02/08/25 10:17 Carvedilol 6.25 Mg Tablet PO 18.75 mg Q12HR CARLIN Administration Duloxetine HCl 60 mg 02/08/25 09:00 02/08/25 10:17 Duloxetine Hcl 60 Mg Capsule.Dr PO 60 mg Q12HR CARLIN Administration Heparin Sodium (Porcine) 5,000 units 02/07/25 21:00 02/08/25 10:17 Heparin Sodium 5,000 Units/Ml Vial SUB-Q 5,000 units Q12HR CARLIN Administration Ceftriaxone Sodium 1 gm in 50 mls @ 100 mls/hr 02/07/25 18:00 02/07/25 20:15 Rocephin 1 Gm/Ns 50 Ml IVPB 100 mls/hr Q24H CARLIN Administration Sodium Chloride 1,000 mls @ 75 mls/hr 02/08/25 09:50 02/08/25 09:50 Normal Saline Iv IV CONT 02/08/25 19:49 75 mls/hr .[id number] CARLIN Administration Lamotrigine 200 mg 02/08/25 09:00 02/08/25 10:17 Lamotrigine 100 Mg Tablet PO 200 mg Q12HR CARLIN Administration Loperamide HCl 2 mg 02/07/25 18:18 Loperamide Hcl 2 Mg Capsule PO PRN PRN Diarrhea Ondansetron HCl 4 mg 02/07/25 15:41 Ondansetron Inj 4 Mg/2 Ml Vial IV PUSH Q4H PRN Nausea Sertraline HCl 100 mg 02/08/25 09:00 02/08/25 10:16 Sertraline Hcl 50 Mg Tablet PO 100 mg DAILY CARLIN Administration Radiology Results: ITS Impressions Head CT 02/07/25 18:39 Impression: No acute intracranial hemorrhage or suspicious mass effect. Labs Labs: Laboratory Results - last 24 hr 02/07/25 02/07/25 02/08/25 14:33 19:46 04:00 WBC RBC Hgb Hct MCV MCH MCHC RDW Plt Count MPV Immature Gran % (Auto) Neut % (Auto) Lymph % (Auto) [place] % (Auto) Eos % (Auto) Baso % (Auto) Lymph # (Auto) [place] # (Auto) Eos # (Auto) Baso # (Auto) Abs Immat Gran (auto) Absolute Neuts (auto) Absolute Nucleated RBC Nucleated RBC % Sodium Potassium 2.5 L* Chloride Carbon Dioxide Anion Gap BUN Creatinine Estim Creat Clear Calc Estimated GFR Glucose Calcium Phosphorus 3.2 Magnesium 2.0 C. difficile (PCR) Negative 02/08/25 02/08/25 04:05 12:38 WBC 10.9 H RBC 2.94 L Hgb 9.3 L Hct 27.5 L MCV 93.5 MCH 31.6 MCHC 33.8 RDW 14.7 H Plt Count 190 MPV 9.4 Immature Gran % (Auto) 1.2 H Neut % (Auto) 79.3 H Lymph % (Auto) 9.0 L [place] % (Auto) 10.1 H Eos % (Auto) 0.2 Baso % (Auto) 0.2 Lymph # (Auto) 0.98 [place] # (Auto) 1.1 H Eos # (Auto) 0.0 Baso # (Auto) 0.0 Abs Immat Gran (auto) 0.13 H Absolute Neuts (auto) 8.6 H Absolute Nucleated RBC 0.030 H Nucleated RBC % 0.3 H Sodium 137 139 Potassium 2.5 L* 3.1 L Chloride 105 106 Carbon Dioxide 24 23 Anion Gap 8 10 BUN 44 H 41 H Creatinine 2.94 H 2.70 H Estim Creat Clear Calc 19 21 Estimated GFR 16 L 18 L Glucose 98 147 H Calcium 7.8 L 8.1 L Phosphorus Magnesium C. difficile (PCR) Quality VTE Prophylaxis VTE prophylaxis: mechanical ordered and pharmacologic ordered
[2025-02-08] MEDS: LORazepam INJ (*CRX) 2 MG/ML VIAL 1 MG IV PUSH ×2 (20:51→22:08)
[2025-02-09] VITALS (18 sets, daily range): BP systolic 115–169; BP diastolic 73–96; PULSE 83–109; RESP 18–22; TEMP 36.6–37.1; O2SAT 95–100
[2025-02-09] MEDS: OLANZapine 5 MG, WATER, STERILE FOR INJECTION 2.1 ML IM (00:24)
[2025-02-09 08:01] LABS: Hematocrit 34.2 % (37.0-47.0); Hemoglobin 11.3 g/dL (12.0-15.0); Mean Corpuscular HGB Conc 33.0 g/dl (32-36); Mean Corpuscular Hemoglobin 31.5 pg (26-34); Mean Corpuscular Volume 95.3 fl (80-100); Platelet Count Result 284 k/mm3 (150-375); Red Blood Count 3.59 M/mm3 (4.2-5.4); White Blood Count 20.7 K/mm3 (4.5-10.0)
[2025-02-09] MEDS: DULoxetine HCL 60 MG CAPSULE.DR PO ×2 (09:33→20:50)
[2025-02-09] MEDS: SERTRALINE HCL 50 MG TABLET 100 MG PO (09:33)
[2025-02-09] MEDS: metroNIDAZOLE 500 MG/ISO 100ML 500 MG/100 ML BAG 100 MG IVPB ×3 (09:44→21:11)
[2025-02-09] MEDS: VANCOMYCIN 1,500 MG/NS 500 ML 1,500 MG/500 ML BAG 250 MG IVPB (11:32)
[2025-02-09 12:24] LABS: Anion Gap 15 mmol/L (4-12); Blood Urea Nitrogen 34 mg/dL (7-17); Calcium 8.9 mg/dL (8.4-10.2); Carbon Dioxide 19 mmol/L (22-30); Chloride 109 mmol/L (98-107); Estimated CRCL calculation 27 ml/min; Estimated Glomerular Filt Rate 24; Glucose 149 mg/dL (65-110); Potassium 3.3 mmol/L (3.4-5.0); Sodium 143 mmol/L (137-145)
[2025-02-09] MEDS: POTASSIUM CHLORIDE 20 MEQ PACKET (FOR LIQUID) 40 MEQ PO (13:00)
--- NOTE | 2025-02-09 14:00 | P.PNIM_ITS ---
Progress Note: A&P Assessment and Plan (1) Altered mental status: Code(s): R41.82 - Altered mental status, unspecified Status: Acute Assessment and Plan: Infection verses stroke versus electrolyte imbalance versus other CT head no acute findings Replete electrolytes as needed IV antibiotics for infection. Change to Rocephin, vancomycin, Flagyl Blood culture positive for Gram-positive cocci in cluster Follow-up blood culture results swallow evaluation pending Holding sedated of medications until more alert PT/OT/ST (2) JERRY (acute kidney injury): Code(s): N17.9 - Acute kidney failure, unspecified Status: Acute Assessment and Plan: IV fluids for hydration Repeat BMP US renal unremarkable Cr 2.94 baseline is normal , continue IVF (3) Acute hypokalemia: Code(s): E87.6 - Hypokalemia Status: Acute Assessment and Plan: replaced, continue monitoring (4) UTI (urinary tract infection): Qualifiers: Urinary tract infection type: acute cystitis Hematuria presence: without hematuria Qualified Code(s): N30.00 - Acute cystitis without hematuria Code(s): N39.0 - Urinary tract infection, site not specified Status: Acute Assessment and Plan: Could be causing altered mental status Rocephin Culture and sensitivity pending IVF (5) Diarrhea: Code(s): R19.7 - Diarrhea, unspecified Status: Acute Assessment and Plan: Likely cause of acute dehydration and hypokalemia Negative for C diff Imodium (6) Bipolar disorder: Qualifiers: Active/Remission status: in remission of unspecified degree Qualified Code(s): F31.70 - Bipolar disorder, currently in remission, most recent episode unspecified Code(s): F31.9 - Bipolar disorder, unspecified Status: Acute Assessment and Plan: Patient will need to be restarted on Lamictal when she can swallow (7) HTN (hypertension): Qualifiers: Hypertension type: essential hypertension Qualified Code(s): I10 - Essential (primary) hypertension Code(s): I10 - Essential (primary) hypertension Status: Chronic Assessment and Plan: Currently holding hydrochlorothiazide till patient is alert and in setting of sepsis (8) Diastolic dysfunction: Code(s): I51.89 - Other ill-defined heart diseases Status: Acute Assessment and Plan: Currently holding hydrochlorothiazide till patient is alert (9) Obstructive sleep apnea on CPAP: Code(s): G47.33 - Obstructive sleep apnea (adult) (pediatric); Z99.89 - Dependence on other enabling machines and devices Status: Acute Assessment and Plan: Does not appear to be on home CPAP (10) Sepsis: Code(s): A41.9 - Sepsis, unspecified organism Status: Acute Assessment and Plan: possible pneumonia vs UTI IV antibiotics for infection. Change to Rocephin, vancomycin, Flagyl Blood culture positive for Gram-positive cocci in cluster Follow-up blood culture results Plan DVT prophylaxis on Sq Heparin Subjective Date/time seen: 02/09/25 14:00 Interval history: per HPI: 69-year-old female history of bipolar 1, hypertension, brain tumor, iron deficiency anemia, CKD and SIMEON presents to the hospital with altered mental status [facility] a [facility]. HPI is limited due to altered mental status. Per the the patient had a fall was found to have a brain bleed and was transferred to [facility] and then discharged to rehab and then sent to a prison due to not progressing in rehab. She has been wheelchair- bound. He states that over the last couple days she became more and more withdrawn. He is unaware of her having another fall Lab work in the ED shows leukocytosis at 15.4, hemoglobin of 11.9, sodium of 133, potassium a less than 2, creatinine of 3.36 baseline being 1, GFR 12, AST 57 ALT 46, UA with 2+ leukocyte esterase moderate squamous cells negative nitrates and yeast, and C diff is negative 02/09/25 Patient was seen and examined at [facility]. She is alert oriented to herself and place. Denies any chest pain, shortness of breath, abd pain, N/V. Blood culture positive for Gram-positive cocci in cluster. Antibiotics were changed to Rocephin, vancomycin and Flagyl. Discussed with pharmacy team. Repeat blood culture was ordered. Renal ultrasound unremarkable Review of Systems Review of Systems: 12 systems were reviewed and are negativ e except for as per HPI. ROS unobtainable: Yes unobtainable due to mental status Exam Narrative: General: Chronically ill, appears older than stated age HEENT: normocephalic, atraumatic. Mucous membranes moist. EOMI, PERRLA, bilateral sclera anicteric, no conjunctival injection. Neck supple without JVD, lymphadenopathy, or bruit. Respiratory: clear to ascultation bilaterally. No rales/rhonic/wheezes. Cardiovascular: Regular rate and rhythm, normal S1-S2 upon ascultation. No murmurs, rubs, or clicks. PMI is nondisplaced, capillary refill less than 3 second. Abdomen: Soft, round, no pulsatile masses, nondistended and nontender. No rebound, no guarding. No CVA tenderness, no hepatosplenomegaly. Bowel sounds present to all four quadrants. No high pitch or tinkling sounds, resonant to percussion. Extremities: No cyanosis, clubbing, Pulses are palpable 2/2. Patient has trouble following commands. 4+ lower extremity edema Neuro: Alert and orientated x 4. PERRLA. Cranial nerves 2-12 intact without focal deficit. Skin: Warm, dry, and intact, without rash, erythema, or lesion. Psych: Unable to assess Objective Data Vital Signs Vital Signs: Vital Signs - 24 hr 02/08/25 16:00 02/08/25 16:00 02/08/25 18:00 Temperature 98.8 F Pulse Rate 77 81 82 Respiratory Rate 24 H Blood Pressure 138/111 H Pulse Oximetry 98 Oxygen Delivery Oxygen Flow Rate Fraction of Inspired Oxygen 02/08/25 20:00 02/08/25 20:00 02/08/25 20:00 Temperature 98.6 F Pulse Rate 90 89 Respiratory Rate 20 Blood Pressure 124/95 H Pulse Oximetry 100 100 Oxygen Delivery Nasal Cannula Oxygen Flow Rate 1 Fraction of Inspired Oxygen 02/08/25 20:06 02/08/25 20:24 02/08/25 22:00 Temperature Pulse Rate 88 89 83 Respiratory Rate 20 Blood Pressure Pulse Oximetry 100 Oxygen Delivery Nasal Cannula Oxygen Flow Rate 1 Fraction of Inspired Oxygen 24 02/08/25 23:18 02/09/25 00:00 02/09/25 00:00 Temperature 97.8 F Pulse Rate 84 84 Respiratory Rate 20 Blood Pressure 131/88 Pulse Oximetry 100 100 Oxygen Delivery Nasal Cannula Oxygen Flow Rate 1 Fraction of Inspired Oxygen 02/09/25 02:00 02/09/25 04:00 02/09/25 04:00 Temperature 98.1 F Pulse Rate 92 93 Respiratory Rate 18 Blood Pressure 169/74 H Pulse Oximetry 100 96 Oxygen Delivery Nasal Cannula Oxygen Flow Rate 1 Fraction of Inspired Oxygen 02/09/25 04:00 02/09/25 06:00 02/09/25 07:53 Temperature 98.6 F Pulse Rate 92 92 99 Respiratory Rate 20 Blood Pressure 125/96 H Pulse Oximetry 97 Oxygen Delivery Oxygen Flow Rate Fraction of Inspired Oxygen 02/09/25 08:00 02/09/25 08:00 02/09/25 09:32 Temperature Pulse Rate 97 97 Respiratory Rate Blood Pressure Pulse Oximetry 100 Oxygen Delivery Nasal Cannula Oxygen Flow Rate 1 Fraction of Inspired Oxygen 02/09/25 10:00 02/09/25 11:57 02/09/25 12:00 Temperature 98.6 F Pulse Rate 96 109 H 90 Respiratory Rate 20 Blood Pressure 124/73 Pulse Oximetry 97 Oxygen Delivery Oxygen Flow Rate Fraction of Inspired Oxygen Intake/Output Intake/Output: Intake & Output 02/06/25 02/07/25 02/08/25 02/09/25 23:59 23:59 23:59 23:59 Intake Total 1364.2 1540 1370 Output Total 1050 1 Balance 1364.2 827 1369 Meds/Results Medications: Active Medications Generic Name Dose Route Start Last Admin Trade Name Freq PRN Reason Stop Dose Admin Acetaminophen 650 mg 02/07/25 15:41 02/07/25 20:34 Acetaminophen 325 Mg Tablet PO 650 mg Q4H PRN Administration Mild Pain (1-3) or Fever Hydrocodone Bitart/Acetaminophen 1 tab 02/07/25 15:41 02/08/25 20:00 Hydrocodone/Acetaminophen (*Crx) 5-325 Mg Tablet PO 1 tab Q4H PRN Administration Pain Rated 4-6 Artificial Tears 1 drop 02/08/25 09:32 Artificial Tears Ophth Soln 15 Ml Bottle EACH EYE 03/10/25 09:31 PRN PRN dry eye(s) Carvedilol 18.75 mg 02/08/25 09:00 02/09/25 09:32 Carvedilol 6.25 Mg Tablet PO 18.75 mg Q12HR CARLIN Administration Duloxetine HCl 60 mg 02/08/25 09:00 02/09/25 09:33 Duloxetine Hcl 60 Mg Capsule.Dr PO 60 mg Q12HR CARLIN Administration Heparin Sodium (Porcine) 5,000 units 02/07/25 21:00 02/09/25 09:44 Heparin Sodium 5,000 Units/Ml Vial SUB-Q 5,000 units Q12HR CARLIN Administration Ceftriaxone Sodium 2 gm in 100 mls @ 200 mls/hr 02/09/25 18:00 Rocephin 2 Gm/Ns 100 Ml IVPB Q24H CARLIN Metronidazole 500 mg in 100 mls @ 100 mls/hr 02/09/25 09:35 02/09/25 13:41 Flagyl 500 Mg/Iso Soln 100 Ml IVPB 100 mls/hr Q8HR CARLIN Administration Lamotrigine 200 mg 02/08/25 09:00 02/09/25 09:32 Lamotrigine 100 Mg Tablet PO 200 mg Q12HR CARLIN Administration Loperamide HCl 2 mg 02/07/25 18:18 Loperamide Hcl 2 Mg Capsule PO PRN PRN Diarrhea Ondansetron HCl 4 mg 02/07/25 15:41 Ondansetron Inj 4 Mg/2 Ml Vial IV PUSH Q4H PRN Nausea Sertraline HCl 100 mg 02/08/25 09:00 02/09/25 09:33 Sertraline Hcl 50 Mg Tablet PO 100 mg DAILY CARLIN Administration Vancomycin HCl 1 each 02/09/25 10:26 Vancomycin For Acute Kidney Injury IVPB PRN PRN Vancomycin Protocol Radiology Results: ITS Impressions Head CT 02/07/25 18:39 Impression: No acute intracranial hemorrhage or suspicious mass effect. Renal Ultrasound 02/08/25 19:23 IMPRESSION: No hydronephrosis or renal calculi. Parenchyma of the bilateral kidneys are unremarkable. Labs Labs: Laboratory Results - last 24 hr 02/09/25 02/09/25 07:44 10:14 WBC 20.7 H RBC 3.59 L Hgb 11.3 L Hct 34.2 L MCV 95.3 MCH 31.5 MCHC 33.0 RDW 15.3 H Plt Count 284 MPV 10.4 Sodium 143 Potassium 3.3 L Chloride 109 H Carbon Dioxide 19 L Anion Gap 15 H BUN 34 H Creatinine 2.03 H Estim Creat Clear Calc 27 Estimated GFR 24 L Glucose 149 H Calcium 8.9 Quality VTE Prophylaxis VTE prophylaxis: mechanical ordered and pharmacologic ordered
--- NOTE | 2025-02-09 14:14 | PCPTNOTE ---
Spoke with current hospitalist, OK to discharge pt from therapy due to pt remaining at baseline.
[2025-02-09] MEDS: LORazepam (*CRX) 1 MG TABLET PO (15:41)
[2025-02-09] MEDS: cefTRIAXone 2 GM/NS 100 ML 2 GM/100 ML BAG IVPB (17:36)
[2025-02-09] MEDS: HYDROcodone/acetaminophen (*CRX) 5-325 MG TABLET 1 TAB PO (20:54)
[2025-02-10] VITALS (10 sets, daily range): BP systolic 116–121; BP diastolic 43–69; PULSE 74–97; RESP 18–22; TEMP 36.8; O2SAT 96–97
[2025-02-10] MEDS: HYDROcodone/acetaminophen (*CRX) 5-325 MG TABLET 1 TAB PO (02:33)
[2025-02-10] MEDS: LORazepam (*CRX) 1 MG TABLET PO ×3 (02:33→16:47)
[2025-02-10 04:56] LABS: Hematocrit 32.2 % (37.0-47.0); Hemoglobin 10.7 g/dL (12.0-15.0); Immature Granulocyte Percent A 3.9 % (0-0.5); Lymphocytes Absolute Auto 1.55 K/mm3 (0.9-3.2); Mean Corpuscular HGB Conc 33.2 g/dl (32-36); Mean Corpuscular Hemoglobin 31.2 pg (26-34); Mean Corpuscular Volume 93.9 fl (80-100); Nucleated Red Blood Cells Absolute Auto 0.030 K/mm3 (0.0-0.012); Nucleated Red Blood Cells Perc 0.2 % (0.0-0.2); Platelet Count Result 241 k/mm3 (150-375); Red Blood Count 3.43 M/mm3 (4.2-5.4); White Blood Count 17.1 K/mm3 (4.5-10.0)
[2025-02-10] MEDS: metroNIDAZOLE 500 MG/ISO 100ML 500 MG/100 ML BAG 100 MG IVPB ×3 (05:07→22:06)
[2025-02-10 05:27] LABS: Anion Gap 8 mmol/L (4-12); Blood Urea Nitrogen 30 mg/dL (7-17); Calcium 8.8 mg/dL (8.4-10.2); Carbon Dioxide 25 mmol/L (22-30); Chloride 110 mmol/L (98-107); Estimated CRCL calculation 32 ml/min; Estimated Glomerular Filt Rate 29; Glucose 109 mg/dL (65-110); Potassium 3.3 mmol/L (3.4-5.0); Sodium 143 mmol/L (137-145)
[2025-02-10 06:08] LABS: Hepatitis B Surface Antigen Negative (Negative)
[2025-02-10 06:26] LABS: HIV 1/2 Ab P24 Ag Result Negative (Negative)
[2025-02-10] MEDS: VANCOMYCIN 1,750 MG/NS 500 ML 1,750 MG/500 ML BAG 250 MG IVPB (06:45)
[2025-02-10] MEDS: DULoxetine HCL 60 MG CAPSULE.DR PO ×2 (08:48→21:41)
[2025-02-10] MEDS: SERTRALINE HCL 50 MG TABLET 100 MG PO (08:48)
--- NOTE | 2025-02-10 15:33 | P.PNIM_ITS ---
Progress Note: A&P Assessment and Plan (1) Altered mental status: Code(s): R41.82 - Altered mental status, unspecified Status: Acute Assessment and Plan: Infection verses stroke versus electrolyte imbalance versus other CT head no acute findings Replete electrolytes as needed IV antibiotics for infection. Change to Rocephin, vancomycin, Flagyl Blood culture positive for MRSA. Continue vancomycin Will order echo Follow-up blood culture results swallow evaluation pending Holding sedated of medications until more alert PT/OT/ST (2) JERRY (acute kidney injury): Code(s): N17.9 - Acute kidney failure, unspecified Status: Acute Assessment and Plan: IV fluids for hydration Improving Repeat BMP US renal unremarkable , continue IVF (3) Acute hypokalemia: Code(s): E87.6 - Hypokalemia Status: Acute Assessment and Plan: replaced, continue monitoring (4) UTI (urinary tract infection): Qualifiers: Urinary tract infection type: acute cystitis Hematuria presence: without hematuria Qualified Code(s): N30.00 - Acute cystitis without hematuria Code(s): N39.0 - Urinary tract infection, site not specified Status: Acute Assessment and Plan: Could be causing altered mental status Rocephin Culture and sensitivity pending IVF (5) Diarrhea: Code(s): R19.7 - Diarrhea, unspecified Status: Acute Assessment and Plan: Likely cause of acute dehydration and hypokalemia Negative for C diff Imodium (6) Bipolar disorder: Qualifiers: Active/Remission status: in remission of unspecified degree Qualified Code(s): F31.70 - Bipolar disorder, currently in remission, most recent episode unspecified Code(s): F31.9 - Bipolar disorder, unspecified Status: Acute Assessment and Plan: Patient will need to be restarted on Lamictal when she can swallow (7) HTN (hypertension): Qualifiers: Hypertension type: essential hypertension Qualified Code(s): I10 - Essential (primary) hypertension Code(s): I10 - Essential (primary) hypertension Status: Chronic Assessment and Plan: Currently holding hydrochlorothiazide till patient is alert and in setting of sepsis (8) Diastolic dysfunction: Code(s): I51.89 - Other ill-defined heart diseases Status: Acute Assessment and Plan: Currently holding hydrochlorothiazide till patient is alert (9) Obstructive sleep apnea on CPAP: Code(s): G47.33 - Obstructive sleep apnea (adult) (pediatric); Z99.89 - Dependence on other enabling machines and devices Status: Acute Assessment and Plan: Does not appear to be on home CPAP (10) Sepsis: Code(s): A41.9 - Sepsis, unspecified organism Status: Acute Assessment and Plan: possible pneumonia vs UTI IV antibiotics for infection. Change to Rocephin, vancomycin, Flagyl Blood culture positive for mRSA Follow-up blood culture results Ordered echo Plan DVT prophylaxis on Sq Heparin Subjective Date/time seen: 02/10/25 15:33 Interval history: per HPI: 69-year-old female history of bipolar 1, hypertension, brain tumor, iron deficiency anemia, CKD and SIMEON presents to the hospital with altered mental status from a halfway. HPI is limited due to altered mental status. Per the the patient had a fall was found to have a brain bleed and was transferred to [facility] and then discharged to rehab and then sent to a halfway due to not progressing in rehab. She has been wheelchair- bound. He states that over the last couple days she became more and more withdrawn. He is unaware of her having another fall Lab work in the ED shows leukocytosis at 15.4, hemoglobin of 11.9, sodium of 133 , potassium a less than 2, creatinine of 3.36 baseline being 1, GFR 12, AST 57 ALT 46, UA with 2+ leukocyte esterase moderate squamous cells negative nitrates and yeast, and C diff is negative 02/09/25 Patient was seen and examined at [facility]. She is alert oriented to herself and place. Denies any chest pain, shortness of breath, abd pain, N/V. Blood culture positive for Gram-positive cocci in cluster. Antibiotics were changed to Rocephin, vancomycin and Flagyl. Discussed with pharmacy team. Repeat blood culture was ordered. Renal ultrasound unremarkable 02/10/25 Patient was seen examined with. She is oriented to her name only. Denies any chest pain, shortness of breath, abdominal pain, nausea vomiting WBC improved to 17.1. Potassium 3.3. Creatinine improved to 1.75 Blood culture positive for MRSA. Will get echo. Continue with vancomycin Review of Systems Review of Systems: 12 systems were reviewed and are negativ e except for as per HPI. ROS unobtainable: Yes unobtainable due to mental status Exam Narrative: General: Chronically ill, appears older than stated age HEENT: normocephalic, atraumatic. Mucous membranes moist. EOMI, PERRLA, bilateral sclera anicteric, no conjunctival injection. Neck supple without JVD, lymphadenopathy, or bruit. Respiratory: clear to ascultation bilaterally. No rales/rhonic/wheezes. Cardiovascular: Regular rate and rhythm, normal S1-S2 upon ascultation. No murmurs, rubs, or clicks. PMI is nondisplaced, capillary refill less than 3 second. Abdomen: Soft, round, no pulsatile masses, nondistended and nontender. No rebound, no guarding. No CVA tenderness, no hepatosplenomegaly. Bowel sounds present to all four quadrants. No high pitch or tinkling sounds, resonant to percussion. Extremities: No cyanosis, clubbing, Pulses are palpable 2/2. Patient has trouble following commands. 4+ lower extremity edema Neuro: Alert and orientated x 4. PERRLA. Cranial nerves 2-12 intact without focal deficit. Skin: Warm, dry, and intact, without rash, erythema, or lesion. Psych: Unable to assess Objective Data Vital Signs Vital Signs: Vital Signs - 24 hr 02/09/25 16:00 02/09/25 16:30 02/09/25 20:00 Temperature 98.8 F Pulse Rate 89 99 92 Respiratory Rate 20 Blood Pressure 115/82 Pulse Oximetry 95 Oxygen Delivery 02/09/25 20:34 02/09/25 20:50 02/09/25 22:00 Temperature Pulse Rate 99 94 83 Respiratory Rate 20 Blood Pressure Pulse Oximetry 95 Oxygen Delivery Room Air 02/09/25 23:50 02/09/25 23:56 02/10/25 00:00 Temperature 98.6 F Pulse Rate 87 87 84 Respiratory Rate 22 H 22 H Blood Pressure 115/79 Pulse Oximetry 100 100 Oxygen Delivery Room Air 02/10/25 04:00 02/10/25 07:59 02/10/25 08:00 Temperature 98.3 F Pulse Rate 96 96 Respiratory Rate 22 H Blood Pressure 121/69 Pulse Oximetry 97 Oxygen Delivery Room Air 02/10/25 08:00 02/10/25 12:00 Temperature Pulse Rate 85 74 Respiratory Rate Blood Pressure Pulse Oximetry Oxygen Delivery Intake/Output Intake/Output: Intake & Output 02/07/25 02/08/25 02/09/25 02/10/25 23:59 23:59 23:59 23:59 Intake Total 1364.2 1540 2530 400 Output Total 1050 1 371 Balance 1364.2 490 2529 29 Meds/Results Medications: Active Medications Generic Name Dose Route Start Last Admin Trade Name Freq PRN Reason Stop Dose Admin Acetaminophen 650 mg 02/07/25 15:41 02/07/25 20:34 Acetaminophen 325 Mg Tablet PO 650 mg Q4H PRN Administration Mild Pain (1-3) or Fever Hydrocodone Bitart/Acetaminophen 1 tab 02/07/25 15:41 02/10/25 02:33 Hydrocodone/Acetaminophen (*Crx) 5-325 Mg Tablet PO 1 tab Q4H PRN Administration Pain Rated 4-6 Artificial Tears 1 drop 02/08/25 09:32 Artificial Tears Ophth Soln 15 Ml Bottle EACH EYE 03/10/25 09:31 PRN PRN dry eye(s) Carvedilol 18.75 mg 02/08/25 09:00 02/10/25 08:47 Carvedilol 6.25 Mg Tablet PO 18.75 mg Q12HR CARLIN Administration Duloxetine HCl 60 mg 02/08/25 09:00 02/10/25 08:48 Duloxetine Hcl 60 Mg Capsule.Dr PO 60 mg Q12HR CARLIN Administration Heparin Sodium (Porcine) 5,000 units 02/07/25 21:00 02/10/25 08:48 Heparin Sodium 5,000 Units/Ml Vial SUB-Q 5,000 units Q12HR CARLIN Administration Ceftriaxone Sodium 2 gm in 100 mls @ 200 mls/hr 02/09/25 18:00 02/09/25 19:15 Rocephin 2 Gm/Ns 100 Ml IVPB Infused Q24H CARLIN Infusion Metronidazole 500 mg in 100 mls @ 100 mls/hr 02/09/25 09:35 02/10/25 14:16 Flagyl 500 Mg/Iso Soln 100 Ml IVPB 100 mls/hr Q8HR CARLIN Administration Lamotrigine 200 mg 02/08/25 09:00 02/10/25 08:48 Lamotrigine 100 Mg Tablet PO 200 mg Q12HR CARLIN Administration Loperamide HCl 2 mg 02/07/25 18:18 Loperamide Hcl 2 Mg Capsule PO PRN PRN Diarrhea Lorazepam 1 mg 02/09/25 15:15 02/10/25 10:23 Lorazepam (*Crx) 1 Mg Tablet PO 1 mg Q8H PRN Administration Anxiety Ondansetron HCl 4 mg 02/07/25 15:41 Ondansetron Inj 4 Mg/2 Ml Vial IV PUSH Q4H PRN Nausea Sertraline HCl 100 mg 02/08/25 09:00 02/10/25 08:48 Sertraline Hcl 50 Mg Tablet PO 100 mg DAILY CARLIN Administration Vancomycin HCl 1 each 02/09/25 10:26 Vancomycin For Acute Kidney Injury IVPB PRN PRN Vancomycin Protocol Radiology Results: ITS Impressions Head CT 02/07/25 18:39 Impression: No acute intracranial hemorrhage or suspicious mass effect. Renal Ultrasound 02/08/25 19:23 IMPRESSION: No hydronephrosis or renal calculi. Parenchyma of the bilateral kidneys are unremarkable. Labs Labs: Laboratory Results - last 24 hr 02/10/25 02/10/25 04:49 04:50 WBC 17.1 H RBC 3.43 L Hgb 10.7 L Hct 32.2 L MCV 93.9 MCH 31.2 MCHC 33.2 RDW 15.3 H Plt Count 241 MPV 9.5 Immature Gran % (Auto) 3.9 H Neut % (Auto) 76.5 H Lymph % (Auto) 9.1 L [place] % (Auto) 9.4 H Eos % (Auto) 0.5 Baso % (Auto) 0.6 Lymph # (Auto) 1.55 [place] # (Auto) 1.6 H Eos # (Auto) 0.1 Baso # (Auto) 0.1 Abs Immat Gran (auto) 0.67 H Absolute Neuts (auto) 13.1 H Absolute Nucleated RBC 0.030 H Nucleated RBC % 0.2 Sodium 143 Potassium 3.3 L Chloride 110 H Carbon Dioxide 25 Anion Gap 8 BUN 30 H Creatinine 1.75 H Estim Creat Clear Calc 32 Estimated GFR 29 L Glucose 109 Calcium 8.8 Vancomycin Trough 12.2 Hep Bs Antigen Negative Hepatitis C Ab Screen Negative HIV 1&2 Ab/P24 Ag 4thGn Negative Quality VTE Prophylaxis VTE prophylaxis: mechanical ordered and pharmacologic ordered
[2025-02-10] MEDS: POTASSIUM CHLORIDE 20 MEQ PACKET (FOR LIQUID) 40 MEQ PO (16:47)
[2025-02-10] MEDS: cefTRIAXone 2 GM/NS 100 ML 2 GM/100 ML BAG IVPB (17:31)
[2025-02-10] MEDS: OLANZapine DISPERTAB 5 MG PO (21:40)
[2025-02-11] VITALS (15 sets, daily range): BP systolic 101–155; BP diastolic 40–60; PULSE 75–102; RESP 18–22; TEMP 36.4–37.5; O2SAT 93–94
--- NOTE | 2025-02-11 00:50 | PC.NURSE ---
This patient, Leydi Su, was transferred to room 252 on 02/10/25 at 2341. Personal belongings sent with patient. Report given to TARA Whitfield on 02/10/25 at 2250. Appropriate documentation sent with patient.
[2025-02-11] MEDS: LORazepam (*CRX) 1 MG TABLET PO ×2 (01:47→21:03)
[2025-02-11] MEDS: HYDROcodone/acetaminophen (*CRX) 5-325 MG TABLET 1 TAB PO ×3 (01:47→21:03)
[2025-02-11 06:15] LABS: Hematocrit 33.8 % (37.0-47.0); Hemoglobin 10.8 g/dL (12.0-15.0); Immature Granulocyte Percent A 8.1 % (0-0.5); Lymphocytes Absolute Auto 1.75 K/mm3 (0.9-3.2); Mean Corpuscular HGB Conc 32.0 g/dl (32-36); Mean Corpuscular Hemoglobin 31.1 pg (26-34); Mean Corpuscular Volume 97.4 fl (80-100); Nucleated Red Blood Cells Absolute Auto 0.030 K/mm3 (0.0-0.012); Nucleated Red Blood Cells Perc 0.2 % (0.0-0.2); Platelet Count Result 284 k/mm3 (150-375); Red Blood Count 3.47 M/mm3 (4.2-5.4); White Blood Count 17.4 K/mm3 (4.5-10.0)
[2025-02-11 06:29] LABS: Anion Gap 13 mmol/L (4-12); Blood Urea Nitrogen 25 mg/dL (7-17); Calcium 9.3 mg/dL (8.4-10.2); Carbon Dioxide 23 mmol/L (22-30); Chloride 111 mmol/L (98-107); Estimated CRCL calculation 37 ml/min; Estimated Glomerular Filt Rate 34; Glucose 103 mg/dL (65-110); Potassium 4.4 mmol/L (3.4-5.0); Sodium 147 mmol/L (137-145)
[2025-02-11] MEDS: DULoxetine HCL 60 MG CAPSULE.DR PO ×2 (08:58→21:03)
[2025-02-11] MEDS: SERTRALINE HCL 50 MG TABLET 100 MG PO (08:59)
[2025-02-11] MEDS: VANCOMYCIN 1,500 MG/NS 500 ML 1,500 MG/500 ML BAG 250 MG IVPB (11:53)
--- NOTE | 2025-02-11 12:18 | P.PNIM_ITS ---
Progress Note: A&P Assessment and Plan (1) Altered mental status: Code(s): R41.82 - Altered mental status, unspecified Status: Acute Assessment and Plan: Infection verses stroke versus electrolyte imbalance versus other CT head no acute findings Replete electrolytes as needed IV antibiotics for infection. Change to Rocephin, vancomycin, Flagyl Blood culture positive for MRSA. Continue vancomycin WBC 17.4. Echo pending. Repeat blood culture since 02/09/2025 has been negative Follow-up blood culture results Holding sedated of medications until more alert PT/OT/ST (2) JERRY (acute kidney injury): Code(s): N17.9 - Acute kidney failure, unspecified Status: Acute Assessment and Plan: IV fluids for hydration Improving Repeat BMP US renal unremarkable , continue IVF (3) Acute hypokalemia: Code(s): E87.6 - Hypokalemia Status: Acute Assessment and Plan: replaced, continue monitoring (4) UTI (urinary tract infection): Qualifiers: Urinary tract infection type: acute cystitis Hematuria presence: without hematuria Qualified Code(s): N30.00 - Acute cystitis without hematuria Code(s): N39.0 - Urinary tract infection, site not specified Status: Acute Assessment and Plan: Could be causing altered mental status Rocephin Culture and sensitivity pending IVF (5) Diarrhea: Code(s): R19.7 - Diarrhea, unspecified Status: Acute Assessment and Plan: Likely cause of acute dehydration and hypokalemia Negative for C diff Imodium (6) Bipolar disorder: Qualifiers: Active/Remission status: in remission of unspecified degree Qualified Code(s): F31.70 - Bipolar disorder, currently in remission, most recent episode unspecified Code(s): F31.9 - Bipolar disorder, unspecified Status: Acute Assessment and Plan: Patient will need to be restarted on Lamictal when she can swallow (7) HTN (hypertension): Qualifiers: Hypertension type: essential hypertension Qualified Code(s): I10 - Essential (primary) hypertension Code(s): I10 - Essential (primary) hypertension Status: Chronic Assessment and Plan: Currently holding hydrochlorothiazide in setting of sepsis (8) Diastolic dysfunction: Code(s): I51.89 - Other ill-defined heart diseases Status: Acute Assessment and Plan: Currently holding hydrochlorothiazide (9) Obstructive sleep apnea on CPAP: Code(s): G47.33 - Obstructive sleep apnea (adult) (pediatric); Z99.89 - Dependence on other enabling machines and devices Status: Acute Assessment and Plan: Does not appear to be on home CPAP (10) Sepsis: Code(s): A41.9 - Sepsis, unspecified organism Status: Acute Assessment and Plan: possible pneumonia vs UTI IV antibiotics for infection. Rocephin, vancomycin, Flagyl Blood culture positive for mRSA Follow-up blood culture results Ordered echo Plan DVT prophylaxis on Sq Heparin Subjective Date/time seen: 02/11/25 12:18 Interval history: per HPI: 69-year-old female history of bipolar 1, hypertension, brain tumor, iron deficiency anemia, CKD and SIMEON presents to the hospital with altered mental status from a assisted. HPI is limited due to altered mental status. Per the the patient had a fall was found to have a brain bleed and was transferred to [facility] and then discharged to rehab and then sent to a assisted due to not progressing in rehab. She has been wheelchair- bound. He states that over the last couple days she became more and more withdrawn. He is unaware of her having another fall Lab work in the ED shows leukocytosis at 15.4, hemoglobin of 11.9, sodium of 133, potassium a less than 2, creatinine of 3.36 baseline being 1, GFR 12, AST 57 ALT 46, UA with 2+ leukocyte esterase moderate squamous cells negative nitrates and yeast, and C diff is negative 02/09/25 Patient was seen and examined at [facility]. She is alert oriented to herself and place. Denies any chest pain, shortness of breath, abd pain, N/V. Blood culture positive for Gram-positive cocci in cluster. Antibiotics were changed to Rocephin, vancomycin and Flagyl. Discussed with pharmacy team. Repeat blood culture was ordered. Renal ultrasound unremarkable 02/10/25 Patient was seen examined with. She is oriented to her name only. Denies any chest pain, shortness of breath, abdominal pain, nausea vomiting WBC improved to 17.1. Potassium 3.3. Creatinine improved to 1.75 Blood culture positive for MRSA. Will get echo. Continue with vancomycin 02/11/25 Patient was seen and examined at bedside. She is alert oriented to her name and place denies any chest pain, shortness off breath, abdominal pain, nausea vomiting. No acute event overnight. Kidney function improving. WBC 17.4. Echo pending. Repeat blood culture since 02/09/2025 has been negative Review of Systems Review of Systems: 12 systems were reviewed and are negativ e except for as per HPI. ROS unobtainable: Yes unobtainable due to mental status Exam Narrative: General: Chronically ill, appears older than stated age HEENT: normocephalic, atraumatic. Mucous membranes moist. EOMI, PERRLA, bilateral sclera anicteric, no conjunctival injection. Neck supple without JVD, lymphadenopathy, or bruit. Respiratory: clear to ascultation bilaterally. No rales/rhonic/wheezes. Cardiovascular: Regular rate and rhythm, normal S1-S2 upon ascultation. No murmurs, rubs, or clicks. PMI is nondisplaced, capillary refill less than 3 second. Abdomen: Soft, round, no pulsatile masses, nondistended and nontender. No rebound, no guarding. No CVA tenderness, no hepatosplenomegaly. Bowel sounds present to all four quadrants. No high pitch or tinkling sounds, resonant to percussion. Extremities: No cyanosis, clubbing, Pulses are palpable 2/2. Patient has trouble following commands. 4+ lower extremity edema Neuro: Alert and orientated x 4. PERRLA. Cranial nerves 2-12 intact without focal deficit. Skin: Warm, dry, and intact, without rash, erythema, or lesion. Psych: Unable to assess Objective Data Vital Signs Vital Signs: Vital Signs - 24 hr 02/10/25 16:00 02/10/25 16:18 02/10/25 20:00 Temperature 98.2 F Pulse Rate 97 82 92 Respiratory Rate 18 Blood Pressure 116/43 L Pulse Oximetry 96 Oxygen Delivery 02/10/25 21:30 02/10/25 21:40 02/11/25 00:00 Temperature Pulse Rate 92 90 75 Respiratory Rate 20 Blood Pressure Pulse Oximetry 96 Oxygen Delivery Room Air 02/11/25 04:00 02/11/25 06:00 02/11/25 08:00 Temperature 99.5 F Pulse Rate 99 102 H 76 Respiratory Rate 22 H Blood Pressure 101/40 L Pulse Oximetry 93 Oxygen Delivery 02/11/25 08:59 02/11/25 08:59 Temperature Pulse Rate 76 Respiratory Rate 20 Blood Pressure Pulse Oximetry 93 Oxygen Delivery Room Air Intake/Output Intake/Output: Intake & Output 02/08/25 02/09/25 02/10/25 02/11/25 23:59 23:59 23:59 23:59 Intake Total 1540 2530 1640 480 Output Total 1050 1 373 Balance 490 2529 1267 480 Meds/Results Medications: Active Medications Generic Name Dose Route Start Last Admin Trade Name Freq PRN Reason Stop Dose Admin Acetaminophen 650 mg 02/07/25 15:41 02/07/25 20:34 Acetaminophen 325 Mg Tablet PO 650 mg Q4H PRN Administration Mild Pain (1-3) or Fever Hydrocodone Bitart/Acetaminophen 1 tab 02/07/25 15:41 02/11/25 08:57 Hydrocodone/Acetaminophen (*Crx) 5-325 Mg Tablet PO 1 tab Q4H PRN Administration Pain Rated 4-6 Artificial Tears 1 drop 02/08/25 09:32 Artificial Tears Ophth Soln 15 Ml Bottle EACH EYE 03/10/25 09:31 PRN PRN dry eye(s) Carvedilol 18.75 mg 02/08/25 09:00 02/11/25 08:59 Carvedilol 6.25 Mg Tablet PO 18.75 mg Q12HR CARLIN Administration Duloxetine HCl 60 mg 02/08/25 09:00 02/11/25 08:58 Duloxetine Hcl 60 Mg Capsule.Dr PO 60 mg Q12HR CARLIN Administration Heparin Sodium (Porcine) 5,000 units 02/07/25 21:00 02/11/25 08:58 Heparin Sodium 5,000 Units/Ml Vial SUB-Q 5,000 units Q12HR CARLIN Administration Ceftriaxone Sodium 2 gm in 100 mls @ 200 mls/hr 02/09/25 18:00 02/10/25 21:40 Rocephin 2 Gm/Ns 100 Ml IVPB Infused Q24H CARLIN Infusion Lamotrigine 200 mg 02/08/25 09:00 02/11/25 08:59 Lamotrigine 100 Mg Tablet PO 200 mg Q12HR CARLIN Administration Loperamide HCl 2 mg 02/07/25 18:18 Loperamide Hcl 2 Mg Capsule PO PRN PRN Diarrhea Lorazepam 1 mg 02/09/25 15:15 02/11/25 01:47 Lorazepam (*Crx) 1 Mg Tablet PO 1 mg Q8H PRN Administration Anxiety Metronidazole 500 mg 02/11/25 08:20 02/11/25 08:58 Metronidazole 500 Mg Tablet PO 500 mg Q8HR CARLIN Administration Ondansetron HCl 4 mg 02/07/25 15:41 Ondansetron Inj 4 Mg/2 Ml Vial IV PUSH Q4H PRN Nausea Perflutren Lipid Microsphere 0 ml 02/10/25 15:35 Perflutren Lipid Microspheres 1.5 Ml Vial Diluted To 10 Ml Total Volume IV PUSH 02/13/25 15:35 ONCE PRN adequate visualization Protocol Sertraline HCl 100 mg 02/08/25 09:00 02/11/25 08:59 Sertraline Hcl 50 Mg Tablet PO 100 mg DAILY CARLIN Administration Vancomycin HCl 1 each 02/09/25 10:26 Vancomycin For Acute Kidney Injury IVPB PRN PRN Vancomycin Protocol Radiology Results: ITS Impressions Head CT 02/07/25 18:39 Impression: No acute intracranial hemorrhage or suspicious mass effect. Renal Ultrasound 02/08/25 19:23 IMPRESSION: No hydronephrosis or renal calculi. Parenchyma of the bilateral kidneys are unremarkable. Labs Labs: Laboratory Results - last 24 hr 02/11/25 06:06 WBC 17.4 H RBC 3.47 L Hgb 10.8 L Hct 33.8 L MCV 97.4 MCH 31.1 MCHC 32.0 RDW 15.9 H Plt Count 284 MPV 9.6 Immature Gran % (Auto) 8.1 H Neut % (Auto) 70.6 Lymph % (Auto) 10.1 L [place] % (Auto) 9.5 H Eos % (Auto) 0.9 Baso % (Auto) 0.8 Lymph # (Auto) 1.75 [place] # (Auto) 1.7 H Eos # (Auto) 0.2 Baso # (Auto) 0.1 Abs Immat Gran (auto) 1.41 H Absolute Neuts (auto) 12.3 H Absolute Nucleated RBC 0.030 H Nucleated RBC % 0.2 Sodium 147 H Potassium 4.4 Chloride 111 H Carbon Dioxide 23 Anion Gap 13 H BUN 25 H Creatinine 1.53 H Estim Creat Clear Calc 37 Estimated GFR 34 L Glucose 103 Calcium 9.3 Vancomycin Trough 17.8 Quality VTE Prophylaxis VTE prophylaxis: mechanical ordered and pharmacologic ordered
[2025-02-11] MEDS: cefTRIAXone 2 GM/NS 100 ML 2 GM/100 ML BAG IVPB (17:22)
[2025-02-12] VITALS (24 sets, daily range): BP systolic 97–131; BP diastolic 52–62; PULSE 78–110; RESP 18–872; TEMP 36.3–37; O2SAT 88–97
--- NOTE | 2025-02-12 | ECHO_ITS ---
Patient Info Name: Leydi Su Age: 69 years : 1955 Gender: Female Ht: 64 in Wt: 220 lbs BSA: 2.17 m2 HR: 85 bpm BP: 97 / 52 mmHg Technical Quality: Fair Exam Date: 02/12/2025 1:45 PM Patient Status: I Admit Date: 02/08/2025 Exam Type: CA echo dop color flow w con Complete two-dimensional, color flow and Doppler transthoracic echocardiogram is performed with contrast to opacify the left ventricle and to improve the deliniation of the left ventricle endocardial borders. Staff Referring Physician: Dionisio Greenfield Tank Cleaner: Lisbeth Buckley Attending Provider: Dionisio Greenfield Contrast/Agitated Saline Contrast/Ag. Saline: Definity Amount: 2.00 ml Administered By: Lisbeth Buckley Existing IV Access: Yes IV Access Condition: patent with no signs of infiltration Summary 1. Technically difficult study. 2. Left ventricular chamber dimension is normal. 3. Left ventricular systolic function is normal, estimated at 50-55. 4. There is mildly increased left ventricular wall thickness. 5. Right ventricular systolic function is normal. 6. Left atrial chamber dimension is mildly enlarged. 7. No significant valvular disease. Left Ventricle Left ventricular chamber dimension is normal. Left ventricular systolic function is normal, estimated at 50-55. There is mildly increased left ventricular wall thickness. Left ventricular septal wall motion is abnormal with septal motion related to bundle branch block. The left ventricular diastolic function is abnormal. Right Ventricle Right ventricular chamber dimension is normal. Right ventricular systolic function is normal. Left Atria Left atrial chamber dimension is mildly enlarged. Right Atria Right atrial chamber dimension is normal. Atrial Septum Intact interatrial septum visualized by color flow imaging. Aortic Valve The aortic valve is not well visualized. There is no aortic valve stenosis. There is no aortic valve regurgitation. Pulmonic Valve The pulmonic valve is not well visualized. There is trace pulmonic regurgitation. Mitral Valve There is trace mitral valve regurgitation. The mitral valve annulus is mildly calcified. Tricuspid Valve There is trace tricuspid valve regurgitation. Pericardium/Pleural There is no pericardial effusion. Inferior Vena Cava Normal inferior vena cava with >50% collapse upon inspiration consistent with normal right atrial pressure, 3 mmHg. Aorta The aortic root size at the sinus of Valsalva is normal. Left Ventricular Outflow Tract Name Value Normal LVOT 2D LVOT Diameter 2.0 cm LVOT Doppler LVOT Peak Velocity 138 cm/s LVOT Peak Gradient 8 mmHg LVOT Mean Gradient 3 mmHg LVOT VTI 20 cm LVOT VTI/AV VTI Ratio 0.8 LVOT Stroke Volume 63 ml LVOT CO 5.8 l/min LVOT CI 2.7 l/min/m2 Pulmonic Valve Name Value Normal RVOT Doppler RVOT Peak Velocity 62 cm/s RVOT Peak Gradient 1 mmHg PV Doppler PV Peak Velocity 93 cm/s PV Peak Gradient 3 mmHg Mitral Valve Name Value Normal MV Diastolic Function MV E Peak Velocity 112 cm/s MV A Peak Velocity 3 cm/s MV E/A 37.9 MV Decel Time (PW) 102 ms MV Annular TDI MV E/e' (Septal) 30.6 MV E/e' (Lateral) 23.2 MV E/e' (Average) 26.9 Tricuspid Valve Name Value Normal Estimated PAP/RSVP RA Pressure 3 mmHg <=5 TV Annular TDI TV Lateral Jennifer s' Velocity 14.0 cm/s >=9.5 Aorta Name Value Normal Ascending Aorta Ao Root Diameter (MM) 2.9 cm Ao Root Diam Index (MM) 1.3 cm/m2 Aortic Valve Name Value Normal AV Doppler AV Peak Velocity 168 cm/s AV Peak Gradient 8 mmHg AV Mean Gradient 3 mmHg AV VTI 25 cm AV Area (Cont Eq VTI) 2.5 cm2 >=3.0 AV Area (Cont Eq [place]) 2.6 cm2 AV DI ([place]) 0.82 AV Regurgitation 2D LVOT Area 3.1 cm2 Ventricles Name Value Normal LV Dimensions 2D/MM IVS Diastolic Thickness (2D) 0.9 cm 0.6-1.0 LVID Diastole (2D) 5.1 cm 3.8-5.2 LVIW Diastolic Thickness (2D) 0.9 cm 0.6-0.9 LVID Systole (2D) 3.6 cm 2.2-3.5 LVOT Diameter 2.0 cm LV Mass (2D Cubed) 167.20 g 67.00-162.00 LV Mass Index (2D Cubed) 77 g/m2 43-95 Relative Wall Thickness (2D) 0.37 <=0.42 LV Fractional Shortening/Ejection Fraction 2D/MM LV Fractional Shortening (2D) 29 % 27-45 LV EF (2D Teicheugenioz) 55 % LV Diastolic Volume (4C MOD) 99 ml LV EF (4C MOD) 65 % LV Diastolic Volume (2C MOD) 80 ml LV EF (2C MOD) 62 % LV Diastolic Volume (BP MOD) 92 ml 46-106 LV Diastolic Volume Index (BP MOD) 43 ml/m2 29-61 LV Systolic Volume (BP MOD) 36 ml 14-42 LV Systolic Volume Index (BP MOD) 16 ml/m2 8-24 LV EF (BP MOD) 61 % 54-74 LV Diastolic Length (4C) 7.2 cm LV Systolic Length (4C) 5.6 cm LV Stroke Volume (4C MOD) 64 ml Atria Name Value Normal LA Dimensions LA Dimension (MM) 4.3 cm 2.7-3.8 LA Volume (4C A-L) 38 ml LA Volume (BP A-L) 45 ml RA Dimensions RA Area (4C) 14.7 cm2 <=18.0 Report Signatures
[2025-02-12] MEDS: HYDROcodone/acetaminophen (*CRX) 5-325 MG TABLET 1 TAB PO (03:11)
[2025-02-12] MEDS: LORazepam (*CRX) 1 MG TABLET PO (06:14)
[2025-02-12 07:00] LABS: Anion Gap 11 mmol/L (4-12); Blood Urea Nitrogen 21 mg/dL (7-17); Calcium 8.7 mg/dL (8.4-10.2); Carbon Dioxide 21 mmol/L (22-30); Chloride 109 mmol/L (98-107); Estimated CRCL calculation 45 ml/min; Estimated Glomerular Filt Rate 42; Glucose 103 mg/dL (65-110); Potassium 3.7 mmol/L (3.4-5.0); Sodium 141 mmol/L (137-145)
[2025-02-12 07:11] LABS: Hematocrit 33.9 % (37.0-47.0); Hemoglobin 11.2 g/dL (12.0-15.0); Immature Granulocyte Percent A 7.3 % (0-0.5); Lymphocytes Absolute Auto 1.99 K/mm3 (0.9-3.2); Mean Corpuscular HGB Conc 33.0 g/dl (32-36); Mean Corpuscular Hemoglobin 31.7 pg (26-34); Mean Corpuscular Volume 96.0 fl (80-100); Nucleated Red Blood Cells Absolute Auto 0.050 K/mm3 (0.0-0.012); Nucleated Red Blood Cells Perc 0.3 % (0.0-0.2); Platelet Count Result 286 k/mm3 (150-375); Red Blood Count 3.53 M/mm3 (4.2-5.4); White Blood Count 19.2 K/mm3 (4.5-10.0)
[2025-02-12] MEDS: DULoxetine HCL 60 MG CAPSULE.DR PO ×2 (09:26→20:14)
[2025-02-12] MEDS: SERTRALINE HCL 50 MG TABLET 100 MG PO (09:26)
[2025-02-12] MEDS: VANCOMYCIN 1,250 MG/NS 250 ML 1,250 MG/250 ML BAG 166.67 MG IVPB (09:56)
--- NOTE | 2025-02-12 13:55 | P.PNIM_ITS ---
Progress Note: A&P Assessment and Plan (1) Altered mental status: Code(s): R41.82 - Altered mental status, unspecified Status: Acute Assessment and Plan: Infection verses stroke versus electrolyte imbalance versus other CT head no acute findings Replete electrolytes as needed IV antibiotics for infection. vancomycin, Blood culture positive for MRSA. Continue vancomycin . Echo pending. Repeat blood culture since 02/09/2025 has been negative Follow-up blood culture results Holding sedated of medications until more alert PT/OT/ST (2) JERRY (acute kidney injury): Code(s): N17.9 - Acute kidney failure, unspecified Status: Acute Assessment and Plan: IV fluids for hydration Improving Repeat BMP US renal unremarkable , continue IVF (3) Acute hypokalemia: Code(s): E87.6 - Hypokalemia Status: Acute Assessment and Plan: replaced, continue monitoring (4) UTI (urinary tract infection): Qualifiers: Urinary tract infection type: acute cystitis Hematuria presence: without hematuria Qualified Code(s): N30.00 - Acute cystitis without hematuria Code(s): N39.0 - Urinary tract infection, site not specified Status: Acute Assessment and Plan: Could be causing altered mental status received rocephin IVF (5) Diarrhea: Code(s): R19.7 - Diarrhea, unspecified Status: Acute Assessment and Plan: Likely cause of acute dehydration and hypokalemia Negative for C diff Imodium (6) Bipolar disorder: Qualifiers: Active/Remission status: in remission of unspecified degree Qualified Code(s): F31.70 - Bipolar disorder, currently in remission, most recent episode unspecified Code(s): F31.9 - Bipolar disorder, unspecified Status: Acute Assessment and Plan: Patient will need to be restarted on Lamictal when she can swallow (7) HTN (hypertension): Qualifiers: Hypertension type: essential hypertension Qualified Code(s): I10 - Essential (primary) hypertension Code(s): I10 - Essential (primary) hypertension Status: Chronic Assessment and Plan: Currently holding hydrochlorothiazide in setting of sepsis (8) Diastolic dysfunction: Code(s): I51.89 - Other ill-defined heart diseases Status: Acute Assessment and Plan: Currently holding hydrochlorothiazide (9) Obstructive sleep apnea on CPAP: Code(s): G47.33 - Obstructive sleep apnea (adult) (pediatric); Z99.89 - Dependence on other enabling machines and devices Status: Acute Assessment and Plan: Does not appear to be on home CPAP (10) Sepsis: Code(s): A41.9 - Sepsis, unspecified organism Status: Acute Assessment and Plan: possible pneumonia vs UTI IV antibiotics for infection. received Rocephin, vancomycin, Flagyl. continue vancomycin Blood culture positive for mRSA Follow-up blood culture results Ordered echo Plan DVT prophylaxis on Sq Heparin Subjective Date/time seen: 02/12/25 13:55 Interval history: per HPI: 69-year-old female history of bipolar 1, hypertension, brain tumor, iron deficiency anemia, CKD and SIMEON presents to the hospital with altered mental status from a care home. HPI is limited due to altered mental status. Per the the patient had a fall was found to have a brain bleed and was transferred to [facility] and then discharged to rehab and then sent to a care home due to not progressing in rehab. She has been wheelchair- bound. He states that over the last couple days she became more and more withdrawn. He is unaware of her having another fall Lab work in the ED shows leukocytosis at 15.4, hemoglobin of 11.9, sodium of 133, potassium a less than 2, creatinine of 3.36 baseline being 1, GFR 12, AST 57 ALT 46, UA with 2+ leukocyte esterase moderate squamous cells negative nitrates and yeast, and C diff is negative 02/09/25 Patient was seen and examined at [facility]. She is alert oriented to herself and place. Denies any chest pain, shortness of breath, abd pain, N/V. Blood culture positive for Gram-positive cocci in cluster. Antibiotics were changed to Rocephin, vancomycin and Flagyl. Discussed with pharmacy team. Repeat blood culture was ordered. Renal ultrasound unremarkable 02/10/25 Patient was seen examined with. She is oriented to her name only. Denies any chest pain, shortness of breath, abdominal pain, nausea vomiting WBC improved to 17.1. Potassium 3.3. Creatinine improved to 1.75 Blood culture positive for MRSA. Will get echo. Continue with vancomycin 02/11/25 Patient was seen and examined at bedside. She is alert oriented to her name and place denies any chest pain, shortness off breath, abdominal pain, nausea vomiting. No acute event overnight. Kidney function improving. WBC 17.4. Echo pending. Repeat blood culture since 02/09/2025 has been negative 02/12/25 Patient was seen examined at bedside. She isn't more awake oriented today. Denies any chest pain, shortness to stop breath, abdominal pain, nausea vomiting. Continue with vancomycin. Echo pending. Review of Systems Review of Systems: 12 systems were reviewed and are negativ e except for as per HPI. ROS unobtainable: Yes unobtainable due to mental status Exam Narrative: General: Chronically ill, appears older than stated age HEENT: normocephalic, atraumatic. Mucous membranes moist. EOMI, PERRLA, bilateral sclera anicteric, no conjunctival injection. Neck supple without JVD, lymphadenopathy, or bruit. Respiratory: clear to ascultation bilaterally. No rales/rhonic/wheezes. Cardiovascular: Regular rate and rhythm, normal S1-S2 upon ascultation. No murmurs, rubs, or clicks. PMI is nondisplaced, capillary refill less than 3 second. Abdomen: Soft, round, no pulsatile masses, nondistended and nontender. No rebound, no guarding. No CVA tenderness, no hepatosplenomegaly. Bowel sounds present to all four quadrants. No high pitch or tinkling sounds, resonant to percussion. Extremities: No cyanosis, clubbing, Pulses are palpable 2/2. Patient has trouble following commands. 4+ lower extremity edema Neuro: Alert and orientated x 4. PERRLA. Cranial nerves 2-12 intact without focal deficit. Skin: Warm, dry, and intact, without rash, erythema, or lesion. Psych: Unable to assess Objective Data Vital Signs Vital Signs: Vital Signs - 24 hr 02/11/25 14:00 02/11/25 16:00 02/11/25 16:02 Temperature 97.5 F L Pulse Rate 79 85 88 Respiratory Rate 18 20 Blood Pressure 112/56 L Pulse Oximetry 94 Oxygen Delivery Oxygen Flow Rate Fraction of Inspired Oxygen 02/11/25 16:12 02/11/25 19:33 02/11/25 20:00 Temperature 98.8 F Pulse Rate 87 80 Respiratory Rate 20 20 22 H Blood Pressure 155/60 H Pulse Oximetry 94 Oxygen Delivery Room Air Oxygen Flow Rate Fraction of Inspired Oxygen 24 02/11/25 20:02 02/11/25 20:13 02/11/25 21:03 Temperature Pulse Rate 90 90 80 Respiratory Rate 22 H 22 H Blood Pressure Pulse Oximetry Oxygen Delivery Oxygen Flow Rate Fraction of Inspired Oxygen 02/12/25 00:00 02/12/25 02:03 02/12/25 02:13 Temperature Pulse Rate 84 90 90 Respiratory Rate 22 H 22 H Blood Pressure Pulse Oximetry Oxygen Delivery Oxygen Flow Rate Fraction of Inspired Oxygen 02/12/25 02:43 02/12/25 04:00 02/12/25 05:47 Temperature 98.4 F Pulse Rate 85 Respiratory Rate 18 Blood Pressure 97/52 L Pulse Oximetry 94 Oxygen Delivery Nasal Cannula Oxygen Flow Rate 2 Fraction of Inspired Oxygen 02/12/25 06:38 02/12/25 08:02 02/12/25 09:25 Temperature Pulse Rate 94 78 89 Respiratory Rate Blood Pressure Pulse Oximetry 95 Oxygen Delivery Oxygen Flow Rate Fraction of Inspired Oxygen 02/12/25 09:26 02/12/25 12:02 Temperature Pulse Rate 89 Respiratory Rate 18 Blood Pressure Pulse Oximetry 95 Oxygen Delivery Nasal Cannula Oxygen Flow Rate 2 Fraction of Inspired Oxygen Intake/Output Intake/Output: Intake & Output 0602/10/25 02/11/25 02/12/25 23:59 23:59 23:59 23:59 Intake Total 2530 3235 1320 960 Output Total 1 373 Balance 2529 1267 1320 960 Meds/Results Medications: Active Medications Generic Name Dose Route Start Last Admin Trade Name Freq PRN Reason Stop Dose Admin Acetaminophen 650 mg 02/07/25 15:41 02/07/25 20:34 Acetaminophen 325 Mg Tablet PO 650 mg Q4H PRN Administration Mild Pain (1-3) or Fever Hydrocodone Bitart/Acetaminophen 1 tab 02/07/25 15:41 02/12/25 03:11 Hydrocodone/Acetaminophen (*Crx) 5-325 Mg Tablet PO 1 tab Q4H PRN Administration Pain Rated 4-6 Artificial Tears 1 drop 02/08/25 09:32 Artificial Tears Ophth Soln 15 Ml Bottle EACH EYE 03/10/25 09:31 PRN PRN dry eye(s) Carvedilol 18.75 mg 02/08/25 09:00 02/12/25 09:25 Carvedilol 6.25 Mg Tablet PO 18.75 mg Q12HR CARLIN Administration Duloxetine HCl 60 mg 02/08/25 09:00 02/12/25 09:26 Duloxetine Hcl 60 Mg Capsule.Dr PO 60 mg Q12HR CARLIN Administration Heparin Sodium (Porcine) 5,000 units 02/07/25 21:00 02/12/25 09:25 Heparin Sodium 5,000 Units/Ml Vial SUB-Q 5,000 units Q12HR CARLIN Administration Lamotrigine 200 mg 02/08/25 09:00 02/12/25 09:25 Lamotrigine 100 Mg Tablet PO 200 mg Q12HR CARLIN Administration Levalbuterol HCl 1.25 mg 02/11/25 20:00 02/12/25 08:27 Levalbuterol Neb 1.25 Mg/3 Ml INHALATION 1.25 mg Q6HRT CARLIN Administration Loperamide HCl 2 mg 02/07/25 18:18 Loperamide Hcl 2 Mg Capsule PO PRN PRN Diarrhea Lorazepam 1 mg 02/09/25 15:15 02/12/25 06:14 Lorazepam (*Crx) 1 Mg Tablet PO 1 mg Q8H PRN Administration Anxiety Ondansetron HCl 4 mg 02/07/25 15:41 Ondansetron Inj 4 Mg/2 Ml Vial IV PUSH Q4H PRN Nausea Perflutren Lipid Microsphere 0 ml 02/10/25 15:35 Perflutren Lipid Microspheres 1.5 Ml Vial Diluted To 10 Ml Total Volume IV PUSH 02/13/25 15:35 ONCE PRN adequate visualization Protocol Sertraline HCl 100 mg 02/08/25 09:00 02/12/25 09:26 Sertraline Hcl 50 Mg Tablet PO 100 mg DAILY CARLIN Administration Vancomycin HCl 1 each 02/09/25 10:26 Vancomycin For Acute Kidney Injury IVPB PRN PRN Vancomycin Protocol Radiology Results: ITS Impressions Head CT 02/07/25 18:39 Impression: No acute intracranial hemorrhage or suspicious mass effect. Renal Ultrasound 02/08/25 19:23 IMPRESSION: No hydronephrosis or renal calculi. Parenchyma of the bilateral kidneys are unremarkable. Chest X-Ray 02/11/25 22:56 IMPRESSION: Cardiomegaly with cardiac decompensation and pulmonary edema. Pneumonitis is not excluded. Left basilar atelectasis versus pneumonia. Labs Labs: Laboratory Results - last 24 hr 02/12/25 02/12/25 06:16 07:00 WBC 19.2 H RBC 3.53 L Hgb 11.2 L Hct 33.9 L MCV 96.0 MCH 31.7 MCHC 33.0 RDW 16.5 H Plt Count 286 MPV 10.1 Immature Gran % (Auto) 7.3 H Neut % (Auto) 73.0 Lymph % (Auto) 10.4 L [place] % (Auto) 7.9 Eos % (Auto) 0.7 Baso % (Auto) 0.7 Lymph # (Auto) 1.99 [place] # (Auto) 1.5 H Eos # (Auto) 0.1 Baso # (Auto) 0.1 Abs Immat Gran (auto) 1.40 H Absolute Neuts (auto) 14.0 H Absolute Nucleated RBC 0.050 H Nucleated RBC % 0.3 H Sodium 141 Potassium 3.7 Chloride 109 H Carbon Dioxide 21 L Anion Gap 11 BUN 21 H Creatinine 1.27 H Estim Creat Clear Calc 45 Estimated GFR 42 L Glucose 103 Calcium 8.7 Vancomycin Trough 20.0 Quality VTE Prophylaxis VTE prophylaxis: mechanical ordered and pharmacologic ordered
[2025-02-12] MEDS: PERFLUTREN LIPID MICROSPHERES 1.5 ML VIAL DILUTED TO 10 ML TOTAL VOLUME IV PUSH (14:13)
[2025-02-12] MEDS: LOPERAMIDE HCL 2 MG CAPSULE PO (14:35)
--- NOTE | 2025-02-12 14:39 | IVDEFINITY ---
Prior to administration of IV Definity the patient was educated on the risks and benefits of the imaging enhancing agent including potential adverse side effects. The patient verbalized understanding. Allergies were verified. No exclusion criteria were identified and at least one of the following inclusion criteria were met: 1) physician request, 2) patient technically difficult to image (per the [place] [employer]ocardi[employer] guidelines of two or more segments not discernable within the apical view), or 3) questionable left ventricular function. ?
--- NOTE | 2025-02-12 15:58 | ECG_ITS ---
Test Date: 2025-02-12 16:33:36 Measurements Intervals [place] Rate: 104 P: 0 NJ: 0 QRS: -1 QRSD: 99 T: 61 QT: 308 QTc: 406 Interpretive Statements SINUS OR ECTOPIC ATRIAL TACHYCARDIA (SIGNIFICANT BASELINE ARTIFACT) INCOMPLETE RIGHT BUNDLE BRANCH BLOCK BORDERLINE R WAVE PROGRESSION, ANTERIOR LEADS BASELINE ARTIFACT- I, II, III, AVR, AVL, AVF, V1-V6 ABNORMAL ECG Compared to ECG 12/20/2024 08:03:19 HEART RATE HAS INCREASED Electronically Signed On 02-12-2025 17:04:04 CDT by Maurice Hall D.O.
[2025-02-12] MEDS: FUROSEMIDE INJ 40 MG/4 ML VIAL IV PUSH (17:09)
[2025-02-12 17:44] LABS: NT Pro B Type Natriuretic Pept 28200 pg/mL (19.9-100); Troponin I 0.287 ng/mL (0.000-0.034)
[2025-02-12 20:37] LABS: Hematocrit 34.8 % (37.0-47.0); Hemoglobin 11.5 g/dL (12.0-15.0); Immature Granulocyte Percent A 7.6 % (0-0.5); Lymphocytes Absolute Auto 1.61 K/mm3 (0.9-3.2); Mean Corpuscular HGB Conc 33.0 g/dl (32-36); Mean Corpuscular Hemoglobin 31.4 pg (26-34); Mean Corpuscular Volume 95.1 fl (80-100); Nucleated Red Blood Cells Absolute Auto 0.080 K/mm3 (0.0-0.012); Nucleated Red Blood Cells Perc 0.4 % (0.0-0.2); Platelet Count Result 291 k/mm3 (150-375); Red Blood Count 3.66 M/mm3 (4.2-5.4); White Blood Count 19.9 K/mm3 (4.5-10.0)
[2025-02-12 20:48] LABS: INR 1.2; Prothrombin Time 15.5 Seconds (11.1-14.7)
[2025-02-12 20:49] LABS: Alveolar/Arterial O2 Gradient 191.1 mmHg; Fractional Inspired Oxygen 40 %; HCO3 ABG 21.7 mEq/l (22.0-26.0); Oxygen Content ABG 15.9 %vol (16.0-22.0); Oxygen Saturation ABG 91.4 % (95.0-100.0); PCO2 ABG 31.9 mmHg (35.0-45.0); PO2 ABG 57.4 mmHg (80.0-100.0); PO2 FiO2 Ratio Arterial Blood 1.44 %
[2025-02-12 20:49] LABS: Partial Thromboplastin Time 32.4 Seconds (22.3-36.8)
[2025-02-12 20:53] LABS: Alanine Aminotransferase 26 U/L (6-35); Albumin Level 2.8 g/dL (3.5-5.1); Alkaline Phosphatase 77 U/L (38-126); Anion Gap 9 mmol/L (4-12); Aspartate Amino Transferase 29 U/L (14-36); Bilirubin,Total 0.4 mg/dL (0.2-1.3); Blood Urea Nitrogen 20 mg/dL (7-17); Calcium 8.8 mg/dL (8.4-10.2); Carbon Dioxide 24 mmol/L (22-30); Chloride 106 mmol/L (98-107); Estimated CRCL calculation 43 ml/min; Estimated Glomerular Filt Rate 40; Glucose 152 mg/dL (65-110); Potassium 3.5 mmol/L (3.4-5.0); Sodium 139 mmol/L (137-145); Total Protein 5.8 g/dL (6.3-8.2)
[2025-02-12 20:54] LABS: Modified Allen's Test Pass; Site Drawn LEFT RADIAL
[2025-02-12 20:55] LABS: Liters per Minute 4.0 LPM
[2025-02-12 21:04] LABS: CRP 17.5 mg/dL (<1.0); Procalcitonin 0.7 ng/mL
[2025-02-12 21:05] LABS: Anisocytosis 1+; Smudge Cells PRESENT
[2025-02-12 21:06] LABS: Troponin I 0.364 ng/mL (0.000-0.034)
[2025-02-12 21:06] LABS: Schistocytes None Seen
--- NOTE | 2025-02-12 22:20 | PC.NURSE ---
This patient, Leydi Su, was transferred to [ IMU ] on 02/12/25 at 2220. Personal belongings sent with patient. Report given to TARA Low. Appropriate documentation sent with patient.
--- NOTE | 2025-02-12 22:50 | P.PNCROSS_ITS ---
Event Note Event Note Event Note: 02/12/2025 20:30 Nursing staff called as the patient was having increasing respiratory distress. The patient's respiratory rate had increased up into the mid 30s. She was having desaturations and had to have oxygen placed and was titrated up to 4 L nasal cannula. Patient was noted to be wheezing and having coarse crackles bilaterally. The patient had received Lasix during the day shift with no significant amount of urine output. Chest x-ray at that time demonstrated b ilateral lower lobe pneumonia with underlying pulmonary edema not excluded. The daytime hospitalist had checked a troponin in the afternoon which came back elevated at 0.287. The patient received Lasix push 40 mg with no significant urine output. Patient was started on heparin drip per the daytime hospitalist but nursing staff clarified with me whether not to continue the drip as the patient had recent intercranial bleed. I stopped heparin drip prior to administration. Patient is denying any chest pain. She is having significant hypoxia. On review of labs patient's white count initially started to go down on admission the hospital but has since started to climb. Patient had been on Rocephin which was discontinued on the and Flagyl which was discontinued on the . She was continued on vancomycin due to positive blood cultures with MRSA. Repeat blood cultures are pending. I ordered stat labs which demonstrated persistently elevated white count, elevated CRP, mildly elevated procalcitonin and ABG demonstrated mild respiratory alkalosis with significant hypoxia on 4 L nasal cannula PO2 was 57 The patient reports that she feels crappy. She is having difficulty breathing. Patient was requesting something to drink. The patient however started dry heaving after taking her medications mixed in putting. GENERAL: Acutely ill-appearing, respiratory distress, obese, appears older than stated age HEENT: Mucous membranes are tacky, poor dentition with multiple missing teeth, markedly crowded posterior oropharynx, no JVD, no lymphadenopathy CARDIOVASCULAR: Mildly tachycardic, 2+ bilateral radial pedal pulses, heart sounds difficult to auscultate due to overlying lung sounds RESPIRATORY: Accessory muscle use, tachypnea, coarse crackles and end- expiratory wheezing frequent cough ABDOMEN: Obese, distended, nontender INTEGUMENT: Scattered bruising on upper extremities bilaterally, marked varicosities of veins in lower extremities bilaterally, no edema NEUROLOGIC: She is alert oriented to person, place and year. She was confused as to the month. PSYCHIATRIC: She is irritable with flat affect, poor judgment and insight EXTREMITIES: No clubbing, cyanosis or edema, generalized weakness : Pure wick catheter in place 1. Acute hypoxic respiratory failure with continuing of 8 white count despite appropriate antibiotic therapy for the patient's cellulitis I am more suspicious the patient is now developed healthcare associated pneumonia. Patient is having significant at increased work of breathing and hypoxia. Will transfer patient to IMU and tried patient on baby both her in. She is not a candidate for CPAP which would be the better option for treatment but patient is currently gagging and I am concerned that if she were to vomit that she would aspirate. Given degree of respiratory distress will make it patient NPO except for meds with sips for the short term and re-evaluate respiratory status in a.m. will repeat ABG in a.m. as well as CBC. The patient has had repeat blood cultures obtained within the last 24-36 hours. Will await results. We may need to consider CT of the some patient's chest if respiratory status continues to decline or if white count remains elevated. Hypoxic again could be due to CHF as well echocardiogram had already been ordered for a.m. 2. Patient has mildly elevated troponin but EKG not demonstrating any acute evidence of ischemic changes. I suspect some of the troponin elevation is due to demand ischemia with sepsis and hypoxia/acute illness in the setting of chronic kidney disease. The patient is not a candidate for heparin drip given her recent history of intercranial bleed. Cardiology was consulted. Will repeat troponin in a.m.. 50 minute spent in critical care activities. Due to a high probability of clinically significant, life threatening deterioration, the patient required my highest level of preparedness to intervene emergently and I personally spent this critical care time directly and personally managing the patient. This critical care time included obtaining a history; examining the patient; pulse oximetry; ordering and review of studies; arranging urgent treatment with development of a management plan; evaluation of patient's response to treatment; frequent reassessment; and discussions with other providers. It was exclusive of separately billable procedures and treating other patients and teaching time. Please see Assessment and Plan section and the rest of the note for further information on patient assessment and treatment.
--- NOTE | 2025-02-12 23:07 | PC.NURSE ---
This patient, Leydi Su, was received from [facility] on 02/12/25 at 2307. Patient/family oriented to unit policies and routines
[2025-02-13] VITALS (27 sets, daily range): BP systolic 102–123; BP diastolic 38–82; PULSE 72–102; RESP 14–30; TEMP 36.6–37.1; O2SAT 91–100
[2025-02-13] MEDS: CEFEPIME 2 GM/NS 50 ML 2 GM/50 ML BAG IVPB ×2 (04:58→16:42)
[2025-02-13 06:51] LABS: Hematocrit 31.8 % (37.0-47.0); Hemoglobin 10.5 g/dL (12.0-15.0); Mean Corpuscular HGB Conc 33.0 g/dl (32-36); Mean Corpuscular Hemoglobin 31.1 pg (26-34); Mean Corpuscular Volume 94.1 fl (80-100); Platelet Count Result 244 k/mm3 (150-375); Red Blood Count 3.38 M/mm3 (4.2-5.4); White Blood Count 18.3 K/mm3 (4.5-10.0)
[2025-02-13 07:01] LABS: Anion Gap 10 mmol/L (4-12); Blood Urea Nitrogen 21 mg/dL (7-17); Calcium 8.6 mg/dL (8.4-10.2); Carbon Dioxide 22 mmol/L (22-30); Chloride 105 mmol/L (98-107); Estimated CRCL calculation 44 ml/min; Estimated Glomerular Filt Rate 40; Glucose 105 mg/dL (65-110); Potassium 3.3 mmol/L (3.4-5.0); Sodium 137 mmol/L (137-145)
[2025-02-13 07:44] LABS: Band Neutrophils Percent 2 % (0-6); Basophils Absolute Manual 0.00 K/mm3 (0.0-0.1); Basophils Percent Manual 0 % (0-1); Eosinophils Absolute Manual 0.00 K/mm3 (0.02-0.50); Eosinophils Percent Manual 0 % (0-4); Lymphocytes Absolute Manual 2.37 K/mm3 (1.1-4.5); Lymphocytes Percent Manual 13 % (18-44); Monocytes Absolute Manual 0.73 K/mm3 (0.1-0.90); Monocytes Percent Manual 4 % (3-9); Neutrophils Absolute Manual 15.18 K/mm3 (1.3-6.7); Neutrophils Percent Manual 81 % (46-73); Total Cells Counted 100
[2025-02-13 07:45] LABS: Schistocytes None Seen
[2025-02-13 07:46] LABS: Anisocytosis 1+
[2025-02-13] MEDS: LORazepam (*CRX) 1 MG TABLET PO ×2 (08:01→17:41)
[2025-02-13] MEDS: SERTRALINE HCL 50 MG TABLET 100 MG PO (08:02)
--- NOTE | 2025-02-13 08:48 | PCRCNOTE ---
Pt screamimg and combative. Pt on Vapotherm 35 L flow and 60% Fi02. Wants vaoptherm off due to burning her nose and throat. Weaned Fi02 to 35% Fi02 Sp02 98%. Tolerated well. Pt let me give breathing treat after she came of vaoptherm. Pt on 4 L HFNC. Sp02 97%, HR 89. Pt calm and happy to be off vapotherm. Wheezes improved.
--- NOTE | 2025-02-13 09:15 | P.CONPL_ITS ---
Assessment and Plan Assessment and plan (1) Acute hypoxemic respiratory failure: Code(s): J96.01 - Acute respiratory failure with hypoxia Status: Acute Assessment and Plan: Patient is post recent 6 minute walk on 07/09/2023 without hypoxemia at rest or with activity. She tells me she does not use oxygen at rest or with activity at [facility]. She does wear 5 L bleed in at night with her BiPAP 07/08 which she tells me she rarely uses. Patient smokes cigarettes from age [age] at 1 pack per day, quit 40 years ago, PFTs with a restrictive abnormality and no obstructive abnormality. she presented with altered mental status and was on room air while being treated for UTI and acute kidney injury. She also had Staph bacteremia. On 02/12/2025 patient developed shortness of breath and increasing oxygen requirements up to 2 L and then 4 L and then Airvo which she could not tolerate. This was associated with a weight gain from 97.8 kilos on admission to 108.8 kg today, BMP on 02/12 was 28,200 and a chest x-ray showed cardiomegaly with mid and lower lung field infiltrates consistent with congestion or fluid overload. Patient received Lasix 40 on 02/12 in the evening. ABG on 4 L 7.45/32/57. There is no evidence of hypercarbic respiratory failure 02/13/2025: Patient placed on Vapotherm but she was screaming combative because this was burning her nose. she was placed on 4 L nasal cannula saturations 97%. Currently the patient tells me she is breathing worse than her usual. She says she has a cough that is provoked by swallowing pills. She has no chest pain. Denies fever, phlegm production or hemoptysis. White blood cell count 18.3, creatinine 1.33. When I enter the room she was on 3 L nasal cannula saturations 94%. I decreased her to 2 L nasal cannula her saturations were 91%. I spoke to the hospitalist the patient looks much improved today compared to yesterday. Plan: Agree with as aggressive diuresis as tolerated per hospitalist and landscape foreman teams. I repeated a BNP today. The patient may or may not have a healthcare associated pneumonia and at this time would continue vancomycin (started 02/09, day 5) for her known MRSA bacteremia and cefepime, day 2. I will send a procalcitonin today and a CRP. I will send urine for Legionella, urine for pneumococcal antigen, serum mycoplasma IgM and respiratory pathogen panel looking for additional sources of infection. Patient says the levalbuterol is helping her. She does have end expiratory wheezes now which may be related to fluid overload. Will continue levalbuterol. patient tells me she has difficulty swallowing and chokes on her pills. I will order modified barium swallow. goal saturation 90-94%. Wean oxygen accordingly. Discussed with Dr. Greenfield, will follow with you. (2) SIMEON treated with BiPAP: Code(s): G47.33 - Obstructive sleep apnea (adult) (pediatric) Status: Acute Assessment and Plan: Most recent download 08/09/2024 through 09/07/2024. Patient is on BiPAP 16/12 Spontaneous mode with no set rate. Usage days greater than or equal to 4 hours is 0%. Average usage on days used is 2 hours and 18 minutes. AHI 1.0, apnea index 0.6, hypopnea index 0.4, central apnea index 0.1. Median leak 1.9, 95th percentile leak 17.8, maximum leak 51.5. Median tidal volume 271. Median respiratory rate 21. Median minute ventilation 5.8. Currently patient tells me she is rarely uses her BiPAP because is uncomfortable. Plan: Patient tells me she will attempt to wear hospital BiPAP RR 14 and 16/12 with 40%. I will attempt to obtain more recent download. Plan History of Present Illness History of Present Illness Consult date: 02/13/25 Chief complaint: ENTERITIS,HYPOKALEMIA,JERRY Narrative: 02/13/2025: This is a new pulmonary consult for hypoxemic respiratory failure. 69-year-old with a history of obstructive sleep apnea on BiPAP, bipolar, hypertension, brain tumor, CKD, patient is followed in the Pulmonary Clinic in last seen on 09/12/2024: This is a copy of the note. Sleep: She is on BiPAP now. She was previously on CPAP [id number] up until PAP titration in January 2022. She was prescribed initially BiPAP [id number] with 4L O2. She called the office stating the pressure was too high. BiPAP pressure was lowered to BiPAP [id number] with 4L/min O2 and overnight oximetry on the lower pressure with 4L/min O2 showed 150min at or below 88% saturation, basal SpO2 89%, so we had to increase her pressure again back to BiPAP /. In April 2023 we received a note from RT at [facility] stating she could not tolerate the BiPAP pressures. We went through the raw data of her last PAP titration and lowered her BiPAP settings to 16/12cm based on that data, to keep 5L/min O2 bleed in. Today she tells me overall she's doing OK with BiPAP. Still having dry mouth despite changing from nasal pillows to half-face mask but doing better on this. She's using BiPAP with 5L/min O2 bleed in. Nocturia 1x per night. Denies morning headaches. She continues to have a very fragmented sleep schedule. She goes to bed and wakes up after 3 to 4 hours sometimes goes out to her recliner and watches TV, usually 1 or 2am. She often falls back asleep in the recliner but states some nights she doesn't and she's awake until morning. She sleeps in multiple naps pretty much throughout the entire day, some naps lasting 30 minutes and other naps lasting 2 hours or more - (once in the morning and then another > 1 hr nap around 3 or 4pm until Ed gets home from work around 5:30pm). She feels tired throughout the day, sedentary and not much activity. SOB: Today states overall her PINEDA is stable. Working on losing weight, down about 10 lb since last visit 6 months ago. Denies coughing or wheezing. Occasional sputum stuck in throat. Denies sinus drainage. TOBACCO:? Former smoker, quit in 2018. Started smoking at age 21, most of the time smoked 1 pack per day x 40 years, 40 pack years. Plan: * Download 08/09/24 - 09/07/24 shows BiPAP used 60% of nights for avg usage 2h18m per night. Her usage is declined since last visit. Overall AHI is 1.0. Air leaks improved. * She is doing better with a half face mask. Will recommend chin strap. * Regarding her shortness of breath. She has a moderate restrictive abnormality with no obstruction. Encouraged to increase activity and lose weight. * Regarding her tobacco use. Low-dose CT scan November 2024. 12/05/2024: Low-dose CT scan with Lung rads 2, recommend repeat in 12 months. 12/20/2024 through 12/25/2024: Admitted to [facility] from the SNF facility with weakness and treated for UTI. 02/07/2025: Patient status post fall seen in the emergency department 02/07/2025: patient seen in [place] ED for altered mental status from the [facility]dc. Patient is having diarrhea. Recently admitted to the fdc and no known baseline. Blood pressure 111/54, room air saturations 99%. Respirations 18, heart rate 71. White blood cell count 15.4, creatinine 3.63, potassium less than 2.0 UA 2+ leukocyte esterase, 11-20 white blood cells no bacteria C diff negative. patient with a history of a plane. And transferred to [facility] and then discharged to rehab and then sent to a fdc due to not progressing in rehab. She has been wheelchair-bound. Last couple of days she has been more withdrawn. CT of the head negative. Treated for a UTI with ceftriaxone. 02/09 alert an oriented to self and place. Blood cultures Gram-positive cocci antibody is were changed to Rocephin, vancomycin Flagyl. Room air saturations 95% 02/10 Oriented to her name only. Denies shortness of breath. White blood cells 17.1, creatinine 1.75. Blood cultures positive for MRSA. Continue vancomycin, will get echo. Room air saturation 96%. 02/11/2025: Room air saturation 94% at 22:00. white blood cell count 17.4. Creatinine 1.53. Rocephin discontinued. 02/12/2025. She is and more awake oriented today. Denies shortness of breath. Echo pending. at 02:30 2 L nasal cannula saturation 94%. cardiomegaly with pulmonary edema. Left basilar atelectasis versus pneumonia. White blood cell count 19.2, creatinine 1.27. Flagyl discontinued. 02/12 at 2250: at 15:00 increased to 4 L sats 92. 40 of Lasix IV given. Cross coverage note. increasing respiratory distress. Respirations mid 30s, desats on 2 L and placed on 4 L. Noted to be wheezing and have coarse crackles bilaterally. Troponin elevated 0.287. Previously started on IV heparin drip but this was stopped due to recent intracranial bleed. Concern for HCAP. Patient consistently gagging and not a candidate for BiPAP. ABG on 4 L 7.45/32/57. 02/13/2025: Patient placed on Vapotherm but she was screaming combative because this was burning her nose. she was placed on 4 L nasal cannula saturations 97%. Currently the patient tells me she is breathing worse than her usual. She says she has a cough that is provoked by swallowing pills. She has no chest pain. Denies fever, phlegm production or hemoptysis. White blood cell count 18.3, creatinine 1.33. When I enter the room she was on 3 L nasal cannula saturations 94%. I decreased her to 2 L nasal cannula her saturations were 91%. DATA: * 03/22/24 - Overnight oximetry on BiPAP 16/12cm with 5L bleed in - Recorded 2h11m. Time spent at or below 88% saturation was zero minutes. Lowest SpO2 89% with basal Spo2 92.9%. Despite low recording time these results are improved and we recommended to continue BiPAP with 5L. * 03/19/24 - Overnight oximetry on BiPAP 16/12cm with 4L bleed in - Recorded 3h51m. Time spent at or below 88% oxygen saturation was 1h8m. Lowest SpO2 85%. Advised patient to increase to BiPAP with 5L bleed in. * 03/23/24 - PFT - There is a mild restrictive ventilatory abnormality with a normal FEV1. The spirometry is normal without evidence of an obstructive abnormality. There is no significant improvement after inhaling a single dose of albuterol. The diffusing capacity unadjusted for hemoglobin and carboxyhemoglobin is mildly decreased and normalizes when adjusted for alveolar volume. In comparison to previous pulmonary function testing on 03/19/2021 there has been a greater than anticipated time dependent decrease in the diffusing capacity adjusted for alveolar volume with no significant change in the FVC, FEV1, total lung capacity, functional residual capacity, residual volume, or diffusing capacity unadjusted for hemoglobin and carboxyhemoglobin. * 12/06/23 - LDCT - 3 mm kiana-fissural nodule noted in the right lung (axial image 57). Images through the upper abdomen reveal 1.9 cm left adrenal nodule. There is evidence of prior bariatric surgery. * 07/09/23 - 6mw - Normal, she did not require supplemental oxygen at rest or with ambulation. * 12/02/22 - LDCT - Stable 3mm fissural nodule on the right. There is a 3mm left fissural nodule on the left. No endobronchial lesions. No focal airspace consolidation. No new pulmonary nodules or masses. * 03/19/21 PFT - PFT 03/19/21 - There is a moderate restrictive ventilatory abnormality. The spirometry is normal without evidence of an obstructive abnormality. There is no significant improvement after inhaling a single dose of albuterol. The absolute diffusing capacity is mildly decreased and normalizes when corrected for alveolar volume. FEV1 65% of predicted, FEV1/FVC ratio is 79%. * 12/05/2020? nocturnal oximetry on CPAP 12 cm and 4 L/min =? lowest saturation 75%, 6.3 minutes below 88%.? Average oxygen desaturation event is 22. This indicates that she?needs a repeat sleep study. * 10/23/2020? nocturnal oximetry on CPAP 12 and 3 L/ minute,? lowest saturation 73% 1 hour 13 minutes spent below 88%, 16.9% of the study average saturation 90%.?After this study she was called and told to increase night time O2 to 4 L/min * Chest CT 11/11/2020 Lung-RADS category 2, benign appearance or behavior (<1% chance of malignancy); recommend continued LDCT screening in 1 year. 3 mm nodule along each major fissure; several regions of bilateral linear scarring; mild emphysema. Previously seen pneumonia has resolved.? * PFT 03/15/2020 at [place] showed FEV1 90%, normal FEV1%, TLC 81%, mild air trapping RV/TLC 41%, DLCO 56%. DDx includes ILD, pneumonitis; anemia and pulmonary hypertension need to be excluded. * Echo 02/05/2020 LV systolic function normal, estimated at 65-70%. Grade I diastolic dysfunction. Mild aortic stenosis. Unable to estimate PA systolic pressure due to limited views, technically difficult study. Review of Systems 2 Constitutional: Constitutional: Reports no additional constitutional complaints Eyes: Eyes: Reports no additional eye complaints ENT: Reports system reviewed and no additional complaints, except as documented Cardiovascular: Cardiovascular: Reports no additional cardiovascular complaints Respiratory: Respiratory: Reports no additional respiratory complaints Gastrointestinal: Gastrointestinal: Reports no additional gastrointestinal complaints Musculoskeletal: Musculoskeletal: Reports no additional musculoskeletal complaints Neurologic: Reports system reviewed and no additional complaints, except as documented Psychiatric: Psychiatric: Reports no additional psychiatric complaints Endocrine: Endocrine: Reports no additional endocrine complaints Hematologic/Lymphatic: Hematologic/Lymphatic: Reports no additional hematologic/lymphatic complaints Allergic/Immunologic: Allergic/Immunologic: Reports no additional allergic/immunologic complaints [facility] Past Medical History Medical History CKD (chronic kidney disease) Nocturnal oxygen desaturation Body mass index (BMI) of 40.1-44.9 in adult Deafness in left ear JERED (iron deficiency anemia) Lymphedema Dysuria Fracture of left upper extremity Distal radius fracture, left July 2020 Shortness of Breath Decreased diffusion capacity History of tobacco abuse Exercise hypoxemia Brain tumor HTN (hypertension) Obstructive sleep apnea on CPAP Bipolar 1 disorder SIMEON (obstructive sleep apnea) With CPAP use GERD (gastroesophageal reflux disease) Depression Anxiety Surgical History Surgical History History of bladder suspension procedure March 2017 Hx of tonsillectomy History of brain surgery 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 She has 3 children. She is disabled. She quit smoking 5 years ago. The patient denies any marijuana alcohol or illicit drugs. Her is a durable power insurance defense attorney for healthcare. Primary care physician: Dr. Yannick Umanzor Code status: Full code Smoking packs per day: 1 Smoking cigarettes per day: 20.0 Years smoked: 40 Smoking pack-years: 40.00 Smoking status: Former smoker Tobacco type: cigarettes Second hand tobacco smoke exposure: No Smoking end date: 08/23/14 Alcohol intake: never Substance use: never Substance use type: does not use Do You Feel Safe in your Home?: Yes Lack of Transportation: YES Lack of Food: Never True Current Housing: I Have Housing Concerned About Future Housing: No Difficulty Paying Gas/Electric Bills: No Difficulty Paying for Meds: No Currently Unemployed: No Education: Associate Degree Difficulty w/ Childcare or Family Care: No Living arrangements: with family Additional living arrangements comments: [facility] Occupation/Education: retired Additional occupation/education comments: 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 Gender identity (if verbalized by the patient): Female Spiritual care concerns: No Meds Home Medications and Allergies Home Medications ?Medication ?Instructions ?Recorded ?Confirmed ?Type duloxetine 60 mg capsule,delayed 60 mg PO Q12H 01/21/21 02/07/25 History release (Cymbalta) Overnight Ox #1 ea 05/13/22 02/07/25 Rx albuterol sulfate 90 mcg/actuation 1 - 2 puff inhalation Q4-6H PRN 02/08/23 02/07/25 Rx aerosol inhaler shortness of breath or wheezing #8.5 grams ascorbic acid (vitamin C) 1,000 mg 1 g PO DAILY 09/08/23 02/07/25 History chewable tablet aspirin 81 mg tablet,delayed 81 mg PO DAILY 09/08/23 02/07/25 History release carvedilol 12.5 mg tablet 18.75 mg PO Q12H 09/08/23 02/07/25 History ferrous sulfate 325 mg (65 mg 325 mg PO DAILY 09/08/23 02/07/25 History iron) tablet lamotrigine 200 mg tablet 200 mg PO Q12H 09/08/23 02/07/25 History oxybutynin chloride 10 mg 10 mg PO DAILY 09/08/23 02/07/25 History tablet,extended release 24 hr sertraline 100 mg tablet 100 mg PO DAILY 09/08/23 02/07/25 History varenicline tartrate 0.03 mg/spray 0.03 mg intranasal Q12H 03/14/24 02/07/25 History metered nasal spray (Tyrvaya) acetaminophen 325 mg capsule 650 mg PO Q4H PRN pain (scale 12/20/24 02/07/25 History score 1-3) hydrochlorothiazide 12.5 mg tablet 12.5 mg PO QAM #90 tabs 01/17/25 02/07/25 Rx hydrocodone 5 mg-acetaminophen 325 1 tablet PO Q6H PRN pain #12 tabs 01/22/25 02/07/25 Rx mg tablet inulin 1.7 gram chewable tablet 3.4 g PO DAILY 02/07/25 02/07/25 History (Fiber Gummies) lorazepam 2 mg tablet 2 mg PO TID 02/07/25 02/07/25 History menthol 0.44 %-zinc oxide 20.6 % 1 applic topical DAILY PRN skin 02/07/25 02/07/25 History topical ointment (CalaSoothe) irritation polyethylene glycol 3350 17 17 g PO DAILY PRN constipation 02/07/25 02/07/25 History gram/dose oral powder polyvinyl alcohol-povidone 0.5 1 drp EACH EYE Q60M PRN dry eye(s) 02/07/25 02/07/25 History %-0.6 % eye drops (Artificial Tears (polyvinyl alcohol/povidone)) semaglutide (weight loss) 1 mg/0.5 1 mg subcut .biweekly 02/07/25 02/07/25 History mL subcutaneous pen injector (Wegovy) sennosides 8.6 mg capsule (senna) 8.6 mg PO HS 02/07/25 02/07/25 History Allergies Allergy/AdvReac Type Severity Reaction Status Date / Time acyclovir (From Zovirax) Allergy Severe Hives Verified 02/07/25 18:44 Iodinated Contrast Media Allergy Intermediate Rash Verified 02/07/25 18:44 omeprazole (From Prilosec) AdvReac Intermediate hyperventil Verified 02/07/25 18:44 ate Vital Signs Vital Signs - 24 hr 02/12/25 09:25 02/12/25 09:26 02/12/25 12:02 Temperature Pulse Rate 89 89 Respiratory Rate 18 Blood Pressure Pulse Oximetry 95 Oxygen Delivery Nasal Cannula Oxygen Flow Rate 2 Fraction of Inspired Oxygen 02/12/25 14:27 02/12/25 14:41 02/12/25 14:41 Temperature 36.3 C L Pulse Rate 105 H 105 H 105 H Respiratory Rate 19 28 H 28 H Blood Pressure 131/62 Pulse Oximetry 88 L 88 L Oxygen Delivery Nasal Cannula Oxygen Flow Rate 2 Fraction of Inspired Oxygen 02/12/25 15:00 02/12/25 16:02 02/12/25 16:51 Temperature Pulse Rate 110 H 105 H 100 Respiratory Rate Blood Pressure Pulse Oximetry 92 Oxygen Delivery Nasal Cannula Oxygen Flow Rate 4 Fraction of Inspired Oxygen 02/12/25 20:00 02/12/25 20:00 02/12/25 20:18 Temperature Pulse Rate 110 H 110 H 96 Respiratory Rate 30 H 30 H Blood Pressure Pulse Oximetry 93 Oxygen Delivery Nasal Cannula Oxygen Flow Rate 4 Fraction of Inspired Oxygen 02/12/25 20:30 02/12/25 20:30 02/12/25 21:24 Temperature Pulse Rate 96 110 H Respiratory Rate 30 H 30 H Blood Pressure Pulse Oximetry 91 93 Oxygen Delivery Nasal Cannula Oxygen Flow Rate 4 Fraction of Inspired Oxygen 02/12/25 22:56 02/12/25 23:19 02/13/25 00:00 Temperature 37.0 C Pulse Rate 100 91 84 Respiratory Rate 20 23 H 24 H Blood Pressure 104/53 L Pulse Oximetry 94 97 97 Oxygen Delivery High Flow Therapy with Na High Flow Therapy with Na Oxygen Flow Rate 35 35 Fraction of Inspired Oxygen 60 60 02/13/25 00:00 02/13/25 02:00 02/13/25 02:06 Temperature Pulse Rate 94 93 96 Respiratory Rate 30 H Blood Pressure Pulse Oximetry Oxygen Delivery Oxygen Flow Rate Fraction of Inspired Oxygen 02/13/25 03:18 02/13/25 04:00 02/13/25 04:00 Temperature 37.1 C Pulse Rate 84 79 79 Respiratory Rate 22 H 22 H Blood Pressure 115/57 L Pulse Oximetry 100 100 Oxygen Delivery High Flow Therapy with Na Oxygen Flow Rate 35 Fraction of Inspired Oxygen 60 02/13/25 06:00 02/13/25 08:12 02/13/25 08:42 Temperature Pulse Rate 85 96 94 Respiratory Rate 20 Blood Pressure Pulse Oximetry 99 Oxygen Delivery High Flow Therapy with Na Oxygen Flow Rate 35 Fraction of Inspired Oxygen 60 02/13/25 08:45 02/13/25 08:54 Temperature Pulse Rate 91 88 Respiratory Rate 22 H 22 H Blood Pressure Pulse Oximetry Oxygen Delivery Oxygen Flow Rate Fraction of Inspired Oxygen Exam 2 Const: General: cooperative and in distress Other: Obese, HENMT: Head: normal to inspection Ears: hearing grossly normal bilaterally Eyes: General: appearance normal, both eyes and all related structures Neck: Neck: normal visual inspection Chest: Chest palpation & inspection: normal inspection of the chest Resp: Effort & Inspection: normal respiratory effort and able to speak in complete sentences Auscultation: crackles, no rales, no rhonchi, no wheezes and lung sounds not diminished Other: crackles throughout, and expiratory wheezes. Cardio: Jugular venous distension: no JVD GI: Inspection: normal to inspection GI Palp: No abdominal tenderness Skin: General skin exam: normal color Neuro: General: oriented to person, oriented to place and oriented to time Extrem: General: normal to inspection and edema Psych: Appearance: grossly normal Results Laboratory Findings 02/13/25 06:39 02/13/25 06:39 ABG, PT/INR, D-dimer: ABG ABG pH 7.450 (7.350-7.450) 02/12/25 20:36 ABG pCO2 31.9 mmHg (35.0-45.0) L 02/12/25 20:36 ABG pO2 57.4 mmHg (80.0-100.0) L 02/12/25 20:36 ABG O2 Saturation 91.4 % (95.0-100.0) L 02/12/25 20:36 PT/INR, D-dimer PT 15.5 Seconds (11.1-14.7) H 02/12/25 20:26 INR 1.2 02/12/25 20:26 Abnormal lab findings: Abnormal Labs 02/07/25 02/07/25 02/07/25 13:41 14:33 19:46 WBC 15.4 H RBC 3.78 L Hgb 11.9 L Hct 34.1 L RDW Immature Gran % (Auto) 1.2 H Neut % (Auto) 83.5 H Lymph % (Auto) 5.8 L Carter % (Auto) 9.4 H Baso % (Auto) 0.1 L Lymph # (Auto) 0.89 L Carter # (Auto) 1.5 H Abs Immat Gran (auto) 0.18 H Absolute Neuts (auto) 12.9 H Absolute Nucleated RBC 0.060 H Neutrophils % (Manual) Lymphocytes % (Manual) Nucleated RBC % 0.4 H Abs Neuts (Manual) Absolute Eos (Manual) PT ABG pCO2 ABG pO2 ABG HCO3 ABG O2 Saturation ABG O2 Content Sodium 133 L Potassium < 2.0 L* 2.5 L* Chloride 95 L Carbon Dioxide Anion Gap BUN 45 H D Creatinine 3.63 H Estimated GFR 12 L Glucose 130 H Calcium AST 57 H ALT 46 H Troponin I C-Reactive Protein NT-Pro-B Natriuret Pep Total Protein 6.0 L Albumin 3.1 L Urine Appearance Cloudy H Urine Protein 1+ H Urine Ketones Trace H Urine Bilirubin 1+ H Leukocyte Esterase Rfl 2+ H Urine RBC 11-20 H Urine WBC 11-20 H Urine Yeast (Budding) Present H Vancomycin Trough 02/08/25 02/08/25 02/09/25 04:05 12:38 07:44 WBC 10.9 H 20.7 H RBC 2.94 L 3.59 L Hgb 9.3 L 11.3 L Hct 27.5 L 34.2 L RDW 14.7 H 15.3 H Immature Gran % (Auto) 1.2 H Neut % (Auto) 79.3 H Lymph % (Auto) 9.0 L Carter % (Auto) 10.1 H Baso % (Auto) Lymph # (Auto) Carter # (Auto) 1.1 H Abs Immat Gran (auto) 0.13 H Absolute Neuts (auto) 8.6 H Absolute Nucleated RBC 0.030 H Neutrophils % (Manual) Lymphocytes % (Manual) Nucleated RBC % 0.3 H Abs Neuts (Manual) Absolute Eos (Manual) PT ABG pCO2 ABG pO2 ABG HCO3 ABG O2 Saturation ABG O2 Content Sodium Potassium 2.5 L* 3.1 L Chloride Carbon Dioxide Anion Gap BUN 44 H 41 H Creatinine 2.94 H 2.70 H Estimated GFR 16 L 18 L Glucose 147 H Calcium 7.8 L 8.1 L AST ALT Troponin I C-Reactive Protein NT-Pro-B Natriuret Pep Total Protein Albumin Urine Appearance Urine Protein Urine Ketones Urine Bilirubin Leukocyte Esterase Rfl Urine RBC Urine WBC Urine Yeast (Budding) Vancomycin Trough 02/09/25 02/10/25 02/10/25 10:14 04:49 04:50 WBC 17.1 H RBC 3.43 L Hgb 10.7 L Hct 32.2 L RDW 15.3 H Immature Gran % (Auto) 3.9 H Neut % (Auto) 76.5 H Lymph % (Auto) 9.1 L Carter % (Auto) 9.4 H Baso % (Auto) Lymph # (Auto) Carter # (Auto) 1.6 H Abs Immat Gran (auto) 0.67 H Absolute Neuts (auto) 13.1 H Absolute Nucleated RBC 0.030 H Neutrophils % (Manual) Lymphocytes % (Manual) Nucleated RBC % Abs Neuts (Manual) Absolute Eos (Manual) PT ABG pCO2 ABG pO2 ABG HCO3 ABG O2 Saturation ABG O2 Content Sodium Potassium 3.3 L 3.3 L Chloride 109 H 110 H Carbon Dioxide 19 L Anion Gap 15 H BUN 34 H 30 H Creatinine 2.03 H 1.75 H Estimated GFR 24 L 29 L Glucose 149 H Calcium AST ALT Troponin I C-Reactive Protein NT-Pro-B Natriuret Pep Total Protein Albumin Urine Appearance Urine Protein Urine Ketones Urine Bilirubin Leukocyte Esterase Rfl Urine RBC Urine WBC Urine Yeast (Budding) Vancomycin Trough 02/11/25 02/12/25 02/12/25 06:06 06:16 07:00 WBC 17.4 H 19.2 H RBC 3.47 L 3.53 L Hgb 10.8 L 11.2 L Hct 33.8 L 33.9 L RDW 15.9 H 16.5 H Immature Gran % (Auto) 8.1 H 7.3 H Neut % (Auto) Lymph % (Auto) 10.1 L 10.4 L Carter % (Auto) 9.5 H Baso % (Auto) Lymph # (Auto) Carter # (Auto) 1.7 H 1.5 H Abs Immat Gran (auto) 1.41 H 1.40 H Absolute Neuts (auto) 12.3 H 14.0 H Absolute Nucleated RBC 0.030 H 0.050 H Neutrophils % (Manual) Lymphocytes % (Manual) Nucleated RBC % 0.3 H Abs Neuts (Manual) Absolute Eos (Manual) PT ABG pCO2 ABG pO2 ABG HCO3 ABG O2 Saturation ABG O2 Content Sodium 147 H Potassium Chloride 111 H 109 H Carbon Dioxide 21 L Anion Gap 13 H BUN 25 H 21 H Creatinine 1.53 H 1.27 H Estimated GFR 34 L 42 L Glucose Calcium AST ALT Troponin I C-Reactive Protein NT-Pro-B Natriuret Pep Total Protein Albumin Urine Appearance Urine Protein Urine Ketones Urine Bilirubin Leukocyte Esterase Rfl Urine RBC Urine WBC Urine Yeast (Budding) Vancomycin Trough 02/12/25 02/12/25 02/12/25 17:11 20:26 20:28 WBC 19.9 H RBC 3.66 L Hgb 11.5 L Hct 34.8 L RDW 16.8 H Immature Gran % (Auto) 7.6 H Neut % (Auto) 74.7 H Lymph % (Auto) 8.1 L Carter % (Auto) Baso % (Auto) Lymph # (Auto) Carter # (Auto) 1.7 H Abs Immat Gran (auto) 1.51 H Absolute Neuts (auto) 14.9 H Absolute Nucleated RBC 0.080 H Neutrophils % (Manual) Lymphocytes % (Manual) Nucleated RBC % 0.4 H Abs Neuts (Manual) Absolute Eos (Manual) PT 15.5 H ABG pCO2 ABG pO2 ABG HCO3 ABG O2 Saturation ABG O2 Content Sodium Potassium Chloride Carbon Dioxide Anion Gap BUN 20 H Creatinine 1.32 H Estimated GFR 40 L Glucose 152 H Calcium AST ALT Troponin I 0.287 H* 0.364 H* D C-Reactive Protein 17.5 H NT-Pro-B Natriuret Pep 84370 H Total Protein 5.8 L Albumin 2.8 L Urine Appearance Urine Protein Urine Ketones Urine Bilirubin Leukocyte Esterase Rfl Urine RBC Urine WBC Urine Yeast (Budding) Vancomycin Trough 02/12/25 02/13/25 20:36 06:39 WBC 18.3 H RBC 3.38 L Hgb 10.5 L Hct 31.8 L RDW 16.7 H Immature Gran % (Auto) Neut % (Auto) Lymph % (Auto) Carter % (Auto) Baso % (Auto) Lymph # (Auto) Carter # (Auto) Abs Immat Gran (auto) Absolute Neuts (auto) Absolute Nucleated RBC Neutrophils % (Manual) 81 H Lymphocytes % (Manual) 13 L Nucleated RBC % Abs Neuts (Manual) 15.18 H Absolute Eos (Manual) 0.00 L PT ABG pCO2 31.9 L ABG pO2 57.4 L ABG HCO3 21.7 L ABG O2 Saturation 91.4 L ABG O2 Content 15.9 L Sodium Potassium 3.3 L Chloride Carbon Dioxide Anion Gap BUN 21 H Creatinine 1.33 H Estimated GFR 40 L Glucose Calcium AST ALT Troponin I C-Reactive Protein NT-Pro-B Natriuret Pep Total Protein Albumin Urine Appearance Urine Protein Urine Ketones Urine Bilirubin Leukocyte Esterase Rfl Urine RBC Urine WBC Urine Yeast (Budding) Vancomycin Trough 21.8 H Diagnostic Findings Additional studies: ITS Impressions Head CT 02/07/25 18:39 Impression: No acute intracranial hemorrhage or suspicious mass effect. Renal Ultrasound 02/08/25 19:23 IMPRESSION: No hydronephrosis or renal calculi. Parenchyma of the bilateral kidneys are unremarkable. Chest X-Ray 02/11/25 22:56 IMPRESSION: Cardiomegaly with cardiac decompensation and pulmonary edema. Pneumonitis is not excluded. Left basilar atelectasis versus pneumonia. Chest X-Ray 02/12/25 16:28 IMPRESSION: Bilateral pneumonia. Underlying pulmonary edema cannot be excluded
[2025-02-13] MEDS: DULoxetine HCL 60 MG CAPSULE.DR PO ×2 (09:34→20:28)
[2025-02-13 11:02] LABS: NT Pro B Type Natriuretic Pept > 30000 pg/mL (19.9-100)
[2025-02-13 11:03] LABS: CRP 19.3 mg/dL (<1.0)
[2025-02-13] MEDS: FUROSEMIDE INJ 40 MG/4 ML VIAL IV PUSH ×2 (11:22→20:36)
[2025-02-13] MEDS: VANCOMYCIN 1,000 MG/NS 250 ML 1,000 MG/250 ML BAG 250 MG IVPB (11:25)
--- NOTE | 2025-02-13 11:36 | P.CONCA_ITS ---
Assessment and Plan Assessment and plan (1) Acute hypoxemic respiratory failure: Code(s): J96.01 - Acute respiratory failure with hypoxia Status: Acute Plan 1. Acute heart failure with preserved LVEF 2. Acute hypoxic respiratory failure 3. Elevated troponins. 4. Possible pneumonia PLAN: -Continue IV Lasix for now. Please monitor strict I/Os. -Antibiotics as per primary team. -Elevated troponins probably due to demand ischemia. Would not Heparinize at this time given unclear details regarding recent brain bleed History of Present Illness History of Present Illness Consult date/time: 02/13/25 11:36 Requesting physician: Dionisio Greenfield MD Consult reason: congestive heart failure Reason For Visit: ENTERITIS,HYPOKALEMIA,JERRY Narrative: Leydi is a 69 year old female with bipolar disorder, hypertension, CKD, SIMEON, brain tumor who was admitted on 02/07 with altered mental status [facility]. History is limited from the patient, no family at bedside. Per her chart, patient had a recent admission to [facility] for brain bleed. Was discharged to a rehab center afterwards, but was not progressing in rehab, therefore, was sent to [facility]iary. Patient is wheelchair bound. During her hospitalization here, patient noted to have worsening shortness of breath and increased respiratory distress overnight. Had received Lasix yesterday. Started on antibiotics for possible pneumonia. Workup shows: WBC 18 SCr 1.33 Troponins are 0.287, 0.364 NT pro BNP >30,000 CXR with bilateral pneumonia, cannot exclude underlying pulmonary edema. Review of Systems 2 Cardiovascular: Cardiovascular: Reports as per [facility] Past Medical History Medical History CKD (chronic kidney disease) Nocturnal oxygen desaturation Body mass index (BMI) of 40.1-44.9 in adult Deafness in left ear JERED (iron deficiency anemia) Lymphedema Dysuria Fracture of left upper extremity Distal radius fracture, left July 2020 Shortness of Breath Decreased diffusion capacity History of tobacco abuse Exercise hypoxemia Brain tumor HTN (hypertension) Obstructive sleep apnea on CPAP Bipolar 1 disorder SIMEON (obstructive sleep apnea) With CPAP use GERD (gastroesophageal reflux disease) Depression Anxiety Surgical History Surgical History History of bladder suspension procedure March 2017 Hx of tonsillectomy History of brain surgery 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 She has 3 children. She is disabled. She quit smoking 5 years ago. The patient denies any marijuana alcohol or illicit drugs. Her is a durable power corporate associate attorney for healthcare. Primary care physician: Dr. Yannick Umanzor Code status: Full code Smoking packs per day: 1 Smoking cigarettes per day: 20.0 Years smoked: 40 Smoking pack-years: 40.00 Smoking status: Former smoker Tobacco type: cigarettes Second hand tobacco smoke exposure: No Smoking end date: 08/23/14 Alcohol intake: never Substance use: never Substance use type: does not use Do You Feel Safe in your Home?: Yes Lack of Transportation: YES Lack of Food: Never True Current Housing: I Have Housing Concerned About Future Housing: No Difficulty Paying Gas/Electric Bills: No Difficulty Paying for Meds: No Currently Unemployed: No Education: Associate Degree Difficulty w/ Childcare or Family Care: No Living arrangements: with family Additional living arrangements comments: 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 Gender identity (if verbalized by the patient): Female Spiritual care concerns: No Meds Home Medications and Allergies Home Medications ?Medication ?Instructions ?Recorded ?Confirmed ?Type duloxetine 60 mg capsule,delayed 60 mg PO Q12H 01/21/21 02/07/25 History release (Cymbalta) Overnight Ox #1 ea 05/13/22 02/07/25 Rx albuterol sulfate 90 mcg/actuation 1 - 2 puff inhalation Q4-6H PRN 02/08/23 02/07/25 Rx aerosol inhaler shortness of breath or wheezing #8.5 grams ascorbic acid (vitamin C) 1,000 mg 1 g PO DAILY 09/08/23 02/07/25 History chewable tablet aspirin 81 mg tablet,delayed 81 mg PO DAILY 09/08/23 02/07/25 History release carvedilol 12.5 mg tablet 18.75 mg PO Q12H 09/08/23 02/07/25 History ferrous sulfate 325 mg (65 mg 325 mg PO DAILY 09/08/23 02/07/25 History iron) tablet lamotrigine 200 mg tablet 200 mg PO Q12H 09/08/23 02/07/25 History oxybutynin chloride 10 mg 10 mg PO DAILY 09/08/23 02/07/25 History tablet,extended release 24 hr sertraline 100 mg tablet 100 mg PO DAILY 09/08/23 02/07/25 History varenicline tartrate 0.03 mg/spray 0.03 mg intranasal Q12H 03/14/24 02/07/25 History metered nasal spray (Tyrvaya) acetaminophen 325 mg capsule 650 mg PO Q4H PRN pain (scale 12/20/24 02/07/25 History score 1-3) hydrochlorothiazide 12.5 mg tablet 12.5 mg PO QAM #90 tabs 01/17/25 02/07/25 Rx hydrocodone 5 mg-acetaminophen 325 1 tablet PO Q6H PRN pain #12 tabs 01/22/25 02/07/25 Rx mg tablet inulin 1.7 gram chewable tablet 3.4 g PO DAILY 02/07/25 02/07/25 History (Fiber Gummies) lorazepam 2 mg tablet 2 mg PO TID 02/07/25 02/07/25 History menthol 0.44 %-zinc oxide 20.6 % 1 applic topical DAILY PRN skin 02/07/25 02/07/25 History topical ointment (CalaSoothe) irritation polyethylene glycol 3350 17 17 g PO DAILY PRN constipation 02/07/25 02/07/25 History gram/dose oral powder polyvinyl alcohol-povidone 0.5 1 drp EACH EYE Q60M PRN dry eye(s) 02/07/25 02/07/25 History %-0.6 % eye drops (Artificial Tears (polyvinyl alcohol/povidone)) semaglutide (weight loss) 1 mg/0.5 1 mg subcut .biweekly 02/07/25 02/07/25 History mL subcutaneous pen injector (WecandeSquirro) sennosides 8.6 mg capsule (senna) 8.6 mg PO HS 02/07/25 02/07/25 History Allergies Allergy/AdvReac Type Severity Reaction Status Date / Time acyclovir (From Zovirax) Allergy Severe Hives Verified 02/07/25 18:44 Iodinated Contrast Media Allergy Intermediate Rash Verified 02/07/25 18:44 omeprazole (From Prilosec) AdvReac Intermediate hyperventil Verified 02/07/25 18:44 ate Vital Signs Vital Signs - 24 hr 02/12/25 12:02 02/12/25 14:27 02/12/25 14:41 Temperature 36.3 C L Pulse Rate 89 105 H 105 H Respiratory Rate 19 28 H Blood Pressure 131/62 Pulse Oximetry 88 L 88 L Oxygen Delivery Nasal Cannula Oxygen Flow Rate 2 Fraction of Inspired Oxygen 02/12/25 14:41 02/12/25 15:00 02/12/25 16:02 Temperature Pulse Rate 105 H 110 H 105 H Respiratory Rate 28 H Blood Pressure Pulse Oximetry 92 Oxygen Delivery Nasal Cannula Oxygen Flow Rate 4 Fraction of Inspired Oxygen 02/12/25 16:51 02/12/25 20:00 02/12/25 20:00 Temperature Pulse Rate 100 110 H 110 H Respiratory Rate 30 H Blood Pressure Pulse Oximetry 93 Oxygen Delivery Nasal Cannula Oxygen Flow Rate 4 Fraction of Inspired Oxygen 02/12/25 20:18 02/12/25 20:30 02/12/25 20:30 Temperature Pulse Rate 96 96 Respiratory Rate 30 H 30 H 30 H Blood Pressure Pulse Oximetry 91 Oxygen Delivery Oxygen Flow Rate Fraction of Inspired Oxygen 02/12/25 21:24 02/12/25 22:56 02/12/25 23:19 Temperature 37.0 C Pulse Rate 110 H 100 91 Respiratory Rate 20 23 H Blood Pressure 104/53 L Pulse Oximetry 93 94 97 Oxygen Delivery Nasal Cannula High Flow Therapy with Na Oxygen Flow Rate 4 35 Fraction of Inspired Oxygen 60 02/13/25 00:00 02/13/25 00:00 02/13/25 02:00 Temperature Pulse Rate 84 94 93 Respiratory Rate 24 H Blood Pressure Pulse Oximetry 97 Oxygen Delivery High Flow Therapy with Na Oxygen Flow Rate 35 Fraction of Inspired Oxygen 60 02/13/25 02:06 02/13/25 03:18 02/13/25 04:00 Temperature 37.1 C Pulse Rate 96 84 79 Respiratory Rate 30 H 22 H 22 H Blood Pressure 115/57 L Pulse Oximetry 100 100 Oxygen Delivery High Flow Therapy with Na Oxygen Flow Rate 35 Fraction of Inspired Oxygen 60 02/13/25 04:00 02/13/25 06:00 02/13/25 08:12 Temperature Pulse Rate 79 85 96 Respiratory Rate Blood Pressure Pulse Oximetry Oxygen Delivery Oxygen Flow Rate Fraction of Inspired Oxygen 02/13/25 08:42 02/13/25 08:45 02/13/25 08:54 Temperature Pulse Rate 94 91 88 Respiratory Rate 20 22 H 22 H Blood Pressure Pulse Oximetry 99 Oxygen Delivery High Flow Therapy with Na Oxygen Flow Rate 35 Fraction of Inspired Oxygen 60 Exam 2 Const: General: no acute distress Eyes: General: appearance normal, both eyes and all related structures S clera: sclerae normal Resp: Effort & Inspection: normal respiratory effort Other: On supplemental oxygen via nasal cannula. Decreased breath sounds. Cardio: Rate: regular rate Rhythm: regular rhythm Heart sounds: no murmurs Other: Mild lower extremity edema Psych: Affect: normal affect Results Labs and Meds 02/13/25 06:39 02/13/25 06:39 Lab results: Cardiac Enzymes 02/12/25 02/12/25 Range/Units 17:11 20:28 AST 29 (14-36) U/L Troponin I 0.287 H* 0.364 H* D (0.000-0.034) ng/mL Coagulation 02/12/25 Range/Units 20:26 PT 15.5 H (11.1-14.7) Seconds APTT 32.4 (22.3-36.8) Seconds CBC 02/12/25 02/13/25 Range/Units 20:26 06:39 WBC 19.9 H 18.3 H (4.5-10.0) K/mm3 RBC 3.66 L 3.38 L (4.2-5.4) M/mm3 Hgb 11.5 L 10.5 L (12.0-15.0) g/dL Hct 34.8 L 31.8 L (37.0-47.0) % Plt Count 291 244 (150-375) k/mm3 Lymph # (Auto) 1.61 Not Reportable (0.9-3.2) K/mm3 Miller # (Auto) 1.7 H Not Reportable (0.1-0.6) K/mm3 Eos # (Auto) 0.1 Not Reportable (0-0.3) K/mm3 Baso # (Auto) 0.1 Not Reportable (0.0-0.1) K/mm3 Comprehensive Metabolic Panel 02/12/25 02/13/25 Range/Units 20:28 06:39 Sodium 139 137 (137-145) mmol/L Potassium 3.5 3.3 L (3.4-5.0) mmol/L Chloride 106 105 (98-107) mmol/L Carbon Dioxide 24 22 (22-30) mmol/L BUN 20 H 21 H (7-17) mg/dL Creatinine 1.32 H 1.33 H (0.7-1.0) mg/dL Glucose 152 H 105 (65-110) mg/dL Calcium 8.8 8.6 (8.4-10.2) mg/dL AST 29 (14-36) U/L ALT 26 (6-35) U/L Alkaline Phosphatase 77 (38-126) U/L Total Protein 5.8 L (6.3-8.2) g/dL Albumin 2.8 L (3.5-5.1) g/dL Intake and Output 02/12/25 02/13/25 02/13/25 23:59 07:59 15:59 Intake Total 840 50 Balance 840 50 Intake: IV 50 Cefepime 2 gm/Ns 50 ml 2 gm In 50 50 ml @ 100 mls/hr IVPB Q12H [facility] Rx#:[id number] Oral 840 Other: # Unmeasured Voids 1 # Urine Diapers 2 Number of Bowel Movements Today 7 2 Patient Weight 02/13/25 23:59 Weight 108.8 kg
--- NOTE | 2025-02-13 11:53 | PCNFU ---
Nutrition Follow-Up Complete: Inadequate oral intake related to loss of appetite, mouth sores as evidenced by weight loss 21%/5 months Goal:PO intakes at least 50% meals and supplements Pt not meeting goal Pt current nutrition is NPO, was minced and moist level 5. Nutrition recommendation: resume diet when appropriate Last recorded weight is 108.8 kg. Bowel Motility: +BM 02/13 Labs Reviewed: Hgb:10.5, HCT:31.58, Alb:2.8, K:3.3, BUN:21, Cr:1.3 Meds Noted: zofran Skin: WNL Additional Notes: Pt NPO today, diet was minced and moist level 5, intake 0-25%. Pt does drink the Ensure. Recommend to resume diet when appropriate, Ensure TID with meals. Encourage po intake of meals and supplements. Monitoring intakes, weights, labs, supplement tolerance, plan of care FOllow up in 5 days
--- NOTE | 2025-02-13 11:57 | P.PNIM_ITS ---
Progress Note: A&P Assessment and Plan (1) Altered mental status: Code(s): R41.82 - Altered mental status, unspecified Status: Acute Assessment and Plan: Infection verses stroke versus electrolyte imbalance versus other CT head no acute findings Replete electrolytes as needed IV antibiotics for infection. vancomycin, Blood culture positive for MRSA. Continue vancomycin TTE neg for endocarditis. will order QI Repeat blood culture since 02/09/2025 has been negative Follow-up blood culture results Holding sedated of medications until more alert PT/OT/ST (2) JERRY (acute kidney injury): Code(s): N17.9 - Acute kidney failure, unspecified Status: Acute Assessment and Plan: IV fluids for hydration Improving Repeat BMP US renal unremarkable (3) Acute hypokalemia: Code(s): E87.6 - Hypokalemia Status: Acute Assessment and Plan: replaced, continue monitoring (4) UTI (urinary tract infection): Qualifiers: Urinary tract infection type: acute cystitis Hematuria presence: w ithout hematuria Qualified Code(s): N30.00 - Acute cystitis without hematuria Code(s): N39.0 - Urinary tract infection, site not specified Status: Acute Assessment and Plan: Could be causing altered mental status received rocephin (5) Diarrhea: Code(s): R19.7 - Diarrhea, unspecified Status: Acute Assessment and Plan: Likely cause of acute dehydration and hypokalemia Negative for C diff Imodium (6) Bipolar disorder: Qualifiers: Active/Remission status: in remission of unspecified degree Qualified Code(s): F31.70 - Bipolar disorder, currently in remission, most recent episode unspecified Code(s): F31.9 - Bipolar disorder, unspecified Status: Acute Assessment and Plan: Patient will need to be restarted on Lamictal when she can swallow (7) HTN (hypertension): Qualifiers: Hypertension type: essential hypertension Qualified Code(s): I10 - Essential (primary) hypertension Code(s): I10 - Essential (primary) hypertension Status: Chronic Assessment and Plan: lasix (8) Diastolic dysfunction: Code(s): I51.89 - Other ill-defined heart diseases Status: Acute Assessment and Plan: Acute on chronic HFpEF continue lasix cardiology team on board (9) Obstructive sleep apnea on CPAP: Code(s): G47.33 - Obstructive sleep apnea (adult) (pediatric); Z99.89 - Dependence on other enabling machines and devices Status: Acute Assessment and Plan: Does not appear to be on home CPAP (10) Sepsis: Code(s): A41.9 - Sepsis, unspecified organism Status: Acute Assessment and Plan: possible pneumonia vs UTI IV antibiotics for infection. received Rocephin, vancomycin, Flagyl. continue vancomycin Added cefepime for possible pneumonia Blood culture positive for mRSA Follow-up blood culture results TTE neg. will order QI pulmonary team on board (11) NSTEMI (non-ST elevated myocardial infarction): Code(s): I21.4 - Non-ST elevation (NSTEMI) myocardial infarction Status: Acute Assessment and Plan: likely demand ischemia monitor for now Cardiology team on board Plan DVT prophylaxis on Sq Heparin Subjective Date/time seen: 02/13/25 11:57 Interval history: per HPI: 69-year-old female history of bipolar 1, hypertension, brain tumor, iron deficiency anemia, CKD and SIMEON presents to the hospital with altered mental status from a shelter. HPI is limited due to altered mental status. Per the the patient had a fall was found to have a brain bleed and was transferred to [facility] and then discharged to rehab and then sent to a shelter due to not progressing in rehab. She has been wheelchair- bound. He states that over the last couple days she became more and more withdrawn. He is unaware of her having another fall Lab work in the ED shows leukocytosis at 15.4, hemoglobin of 11.9, sodium of 133, potassium a less than 2, creatinine of 3.36 baseline being 1, GFR 12, AST 57 ALT 46, UA with 2+ leukocyte esterase moderate squamous cells negative nitrates and yeast, and C diff is negative 02/09/25 Patient was seen and examined at [facility]. She is alert oriented to herself and place. Denies any chest pain, shortness of breath, abd pain, N/V. Blood culture positive for Gram-positive cocci in cluster. Antibiotics were ch anged to Rocephin, vancomycin and Flagyl. Discussed with pharmacy team. Repeat blood culture was ordered. Renal ultrasound unremarkable 02/10/25 Patient was seen examined with. She is oriented to her name only. Denies any chest pain, shortness of breath, abdominal pain, nausea vomiting WBC improved to 17.1. Potassium 3.3. Creatinine improved to 1.75 Blood culture positive for MRSA. Will get echo. Continue with vancomycin 02/11/25 Patient was seen and examined at bedside. She is alert oriented to her name and place denies any chest pain, shortness off breath, abdominal pain, nausea vomi ting. No acute event overnight. Kidney function improving. WBC 17.4. Echo pending. Repeat blood culture since 02/09/2025 has been negative 02/12/25 Patient was seen examined at bedside. She isn't more awake oriented today. Denies any chest pain, shortness to stop breath, abdominal pain, nausea vomiting. Continue with vancomycin. Echo pending. 02/13/25 Patient was seen examined at bedside. She is more alert oriented today. She is on 2 L oxygen. Pulmonary and cardiology team on board. Plan for modified barium swallow. Continue with Lasix continue with vancomycin and cefepime. TTE negative for vegetation. Will order QI. Review of Systems Review of Systems: 12 systems were reviewed and are negativ e except for as per HPI. ROS unobtainable: Yes unobtainable due to mental status Exam Narrative: General: Chronically ill, appears older than stated age HEENT: normocephalic, atraumatic. Mucous membranes moist. EOMI, PERRLA, bilateral sclera anicteric, no conjunctival injection. Neck supple without JVD, lymphadenopathy, or bruit. Respiratory: clear to ascultation bilaterally. No rales/rhonic/wheezes. Cardiovascular: Regular rate and rhythm, normal S1-S2 upon ascultation. No murmurs, rubs, or clicks. PMI is nondisplaced, capillary refill less than 3 second. Abdomen: Soft, round, no pulsatile masses, nondistended and nontender. No rebound, no guarding. No CVA tenderness, no hepatosplenomegaly. Bowel sounds present to all four quadrants. No high pitch or tinkling sounds, resonant to percussion. Extremities: No cyanosis, clubbing, Pulses are palpable 2/2. Patient has trouble following commands. 4+ lower extremity edema Neuro: Alert and orientated x 4. PERRLA. Cranial nerves 2-12 intact without focal deficit. Skin: Warm, dry, and intact, without rash, erythema, or lesion. Psych: Unable to assess Objective Data Vital Signs Vital Signs: Vital Signs - 24 hr 02/12/25 12:02 02/12/25 14:27 02/12/25 14:41 Temperature 97.3 F L Pulse Rate 89 105 H 105 H Respiratory Rate 19 28 H Blood Pressure 131/62 Pulse Oximetry 88 L 88 L Oxygen Delivery Nasal Cannula Oxygen Flow Rate 2 Fraction of Inspired Oxygen 02/12/25 14:41 02/12/25 15:00 02/12/25 16:02 Temperature Pulse Rate 105 H 110 H 105 H Respiratory Rate 28 H Blood Pressure Pulse Oximetry 92 Oxygen Delivery Nasal Cannula Oxygen Flow Rate 4 Fraction of Inspired Oxygen 02/12/25 16:51 02/12/25 20:00 02/12/25 20:00 Temperature Pulse Rate 100 110 H 110 H Respiratory Rate 30 H Blood Pressure Pulse Oximetry 93 Oxygen Delivery Nasal Cannula Oxygen Flow Rate 4 Fraction of Inspired Oxygen 02/12/25 20:18 02/12/25 20:30 02/12/25 20:30 Temperature Pulse Rate 96 96 Respiratory Rate 30 H 30 H 30 H Blood Pressure Pulse Oximetry 91 Oxygen Delivery Oxygen Flow Rate Fraction of Inspired Oxygen 02/12/25 21:24 02/12/25 22:56 02/12/25 23:19 Temperature 98.6 F Pulse Rate 110 H 100 91 Respiratory Rate 20 23 H Blood Pressure 104/53 L Pulse Oximetry 93 94 97 Oxygen Delivery Nasal Cannula High Flow Therapy with Na Oxygen Flow Rate 4 35 Fraction of Inspired Oxygen 60 02/13/25 00:00 02/13/25 00:00 02/13/25 02:00 Temperature Pulse Rate 84 94 93 Respiratory Rate 24 H Blood Pressure Pulse Oximetry 97 Oxygen Delivery High Flow Therapy with Na Oxygen Flow Rate 35 Fraction of Inspired Oxygen 60 02/13/25 02:06 02/13/25 03:18 02/13/25 04:00 Temperature 98.8 F Pulse Rate 96 84 79 Respiratory Rate 30 H 22 H 22 H Blood Pressure 115/57 L Pulse Oximetry 100 100 Oxygen Delivery High Flow Therapy with Na Oxygen Flow Rate 35 Fraction of Inspired Oxygen 60 02/13/25 04:00 02/13/25 06:00 02/13/25 08:12 Temperature Pulse Rate 79 85 96 Respiratory Rate Blood Pressure Pulse Oximetry Oxygen Delivery Oxygen Flow Rate Fraction of Inspired Oxygen 02/13/25 08:42 02/13/25 08:45 02/13/25 08:54 Temperature Pulse Rate 94 91 88 Respiratory Rate 20 22 H 22 H Blood Pressure Pulse Oximetry 99 Oxygen Delivery High Flow Therapy with Na Oxygen Flow Rate 35 Fraction of Inspired Oxygen 60 Intake/Output Intake/Output: Intake & Output 02/10/25 02/11/25 02/12/25 02/13/25 23:59 23:59 23:59 23:59 Intake Total 1640 1320 2160 50 Output Total 373 Balance 1267 1320 2160 50 Meds/Results Medications: Active Medications Generic Name Dose Route Start Last Admin Trade Name Freq PRN Reason Stop Dose Admin Acetaminophen 650 mg 02/07/25 15:41 02/07/25 20:34 Acetaminophen 325 Mg Tablet PO 650 mg Q4H PRN Administration Mild Pain (1-3) or Fever Hydrocodone Bitart/Acetaminophen 1 tab 02/07/25 15:41 02/12/25 03:11 Hydrocodone/Acetaminophen (*Crx) 5-325 Mg Tablet PO 1 tab Q4H PRN Administration Pain Rated 4-6 Artificial Tears 1 drop 02/08/25 09:32 Artificial Tears Ophth Soln 15 Ml Bottle EACH EYE 03/10/25 09:31 PRN PRN dry eye(s) Carvedilol 18.75 mg 02/08/25 09:00 02/13/25 08:12 Carvedilol 6.25 Mg Tablet PO 18.75 mg Q12HR CARLIN Administration Duloxetine HCl 60 mg 02/08/25 09:00 02/13/25 09:34 Duloxetine Hcl 60 Mg Capsule.Dr PO 60 mg Q12HR CARLIN Administration Furosemide 40 mg 02/13/25 10:30 02/13/25 11:22 Furosemide Inj 40 Mg/4 Ml Vial IV PUSH 40 mg Q12HR CARLIN Administration Cefepime HCl 2 gm in 50 mls @ 100 mls/hr 02/13/25 04:00 02/13/25 05:28 Maxipime 2 Gm/Ns 50 Ml IVPB Infused Q12H CARLIN Infusion Vancomycin HCl 1,000 mg in 250 mls @ 250 mls/hr 02/13/25 09:00 02/13/25 11:25 Vancomycin 1,000 Mg/Ns 250 Ml IVPB 250 mls/hr Q24H CARLIN Administration Lamotrigine 200 mg 02/08/25 09:00 02/13/25 09:35 Lamotrigine 100 Mg Tablet PO 200 mg Q12HR CARLIN Administration Levalbuterol HCl 1.25 mg 02/11/25 20:00 02/13/25 08:25 Levalbuterol Neb 1.25 Mg/3 Ml INHALATION 1.25 mg Q6HRT CARLIN Administration Loperamide HCl 2 mg 02/07/25 18:18 02/12/25 14:35 Loperamide Hcl 2 Mg Capsule PO 2 mg PRN PRN Administration Diarrhea Lorazepam 1 mg 02/09/25 15:15 02/13/25 08:01 Lorazepam (*Crx) 1 Mg Tablet PO 1 mg Q8H PRN Administration Anxiety Ondansetron HCl 4 mg 02/07/25 15:41 Ondansetron Inj 4 Mg/2 Ml Vial IV PUSH Q4H PRN Nausea Sertraline HCl 100 mg 02/08/25 09:00 02/13/25 08:02 Sertraline Hcl 50 Mg Tablet PO 100 mg DAILY CARLIN Administration Radiology Results: ITS Impressions Head CT 02/07/25 18:39 Impression: No acute intracranial hemorrhage or suspicious mass effect. Renal Ultrasound 02/08/25 19:23 IMPRESSION: No hydronephrosis or renal calculi. Parenchyma of the bilateral kidneys are unremarkable. Chest X-Ray 02/12/25 16:28 IMPRESSION: Bilateral pneumonia. Underlying pulmonary edema cannot be excluded Labs Labs: Laboratory Results - last 24 hr 02/12/25 02/12/25 02/12/25 17:11 20:26 20:28 WBC 19.9 H RBC 3.66 L Hgb 11.5 L Hct 34.8 L MCV 95.1 MCH 31.4 MCHC 33.0 RDW 16.8 H Plt Count 291 MPV 9.4 Immature Gran % (Auto) 7.6 H Neut % (Auto) 74.7 H Lymph % (Auto) 8.1 L Camp % (Auto) 8.5 Eos % (Auto) 0.4 Baso % (Auto) 0.7 Lymph # (Auto) 1.61 Camp # (Auto) 1.7 H Eos # (Auto) 0.1 Baso # (Auto) 0.1 Abs Immat Gran (auto) 1.51 H Absolute Neuts (auto) 14.9 H Absolute Nucleated RBC 0.080 H Total Counted Neutrophils % (Manual) Band Neutrophils % Not Reportable Lymphocytes % (Manual) Monocytes % (Manual) Eosinophils % (Manual) Basophils % (Manual) Nucleated RBC % 0.4 H Abs Neuts (Manual) Abs Lymphs (Manual) Abs Monocytes (Manual) Absolute Eos (Manual) Abs Basophils (Manual) Atypical Lymphocytes Smudge Cells Present Platelet Estimate Adequate Anisocytosis 1+ Schistocytes None seen PT 15.5 H INR 1.2 APTT 32.4 Puncture Site ABG pH ABG pCO2 ABG pO2 ABG PO2/FiO2 Ratio ABG HCO3 ABG O2 Saturation ABG O2 Content ABG Base Excess A-a Gradient Oxyhemoglobin Total Hemoglobin O2 Delivery Device O2 Liters/Min FiO2 Sodium 139 Potassium 3.5 Chloride 106 Carbon Dioxide 24 Anion Gap 9 BUN 20 H Creatinine 1.32 H Estim Creat Clear Calc 43 Estimated GFR 40 L Glucose 152 H Lactic Acid 1.9 Calcium 8.8 Total Bilirubin 0.4 AST 29 ALT 26 Alkaline Phosphatase 77 Troponin I 0.287 H* 0.364 H* D C-Reactive Protein 17.5 H NT-Pro-B Natriuret Pep 34232 H Total Protein 5.8 L Albumin 2.8 L Procalcitonin 0.7 Vancomycin Trough 02/12/25 02/13/25 02/13/25 20:36 06:28 06:39 WBC 18.3 H RBC 3.38 L Hgb 10.5 L Hct 31.8 L MCV 94.1 MCH 31.1 MCHC 33.0 RDW 16.7 H Plt Count 244 MPV 9.1 Immature Gran % (Auto) Not Reportable Neut % (Auto) Not Reportable Lymph % (Auto) Not Reportable Camp % (Auto) Not Reportable Eos % (Auto) Not Reportable Baso % (Auto) Not Reportable Lymph # (Auto) Not Reportable Camp # (Auto) Not Reportable Eos # (Auto) Not Reportable Baso # (Auto) Not Reportable Abs Immat Gran (auto) Not Reportable Absolute Neuts (auto) Not Reportable Absolute Nucleated RBC Not Reportable Total Counted 100 Neutrophils % (Manual) 81 H Band Neutrophils % 2 Lymphocytes % (Manual) 13 L Monocytes % (Manual) 4 Eosinophils % (Manual) 0 Basophils % (Manual) 0 Nucleated RBC % Not Reportable Abs Neuts (Manual) 15.18 H Abs Lymphs (Manual) 2.37 Abs Monocytes (Manual) 0.73 Absolute Eos (Manual) 0.00 L Abs Basophils (Manual) 0.00 Atypical Lymphocytes Present Smudge Cells Platelet Estimate Adequate Anisocytosis 1+ Schistocytes None seen PT INR APTT Puncture Site Left radial ABG pH 7.450 ABG pCO2 31.9 L ABG pO2 57.4 L ABG PO2/FiO2 Ratio 1.44 ABG HCO3 21.7 L ABG O2 Saturation 91.4 L ABG O2 Content 15.9 L ABG Base Excess -1.5 A-a Gradient 191.1 Oxyhemoglobin 90.5 Total Hemoglobin 12.5 O2 Delivery Device Nasal cannula O2 Liters/Min 4.0 FiO2 40 Sodium 137 Potassium 3.3 L Chloride 105 Carbon Dioxide 22 Anion Gap 10 BUN 21 H Creatinine 1.33 H Estim Creat Clear Calc 44 Estimated GFR 40 L Glucose 105 Lactic Acid Calcium 8.6 Total Bilirubin AST ALT Alkaline Phosphatase Troponin I C-Reactive Protein 19.3 H NT-Pro-B Natriuret Pep > 38368 H Total Protein Albumin Procalcitonin Vancomycin Trough 21.8 H Quality VTE Prophylaxis VTE prophylaxis: mechanical ordered and pharmacologic ordered
[2025-02-13 12:04] LABS: Procalcitonin 0.8 ng/mL
[2025-02-13] MEDS: ONDANSETRON INJ 4 MG/2 ML VIAL IV PUSH (12:53)
[2025-02-13] MEDS: POTASSIUM CHLORIDE INJ 40 MEQ in SODIUM CHLORIDE 0.9% IV 500 ML 130 MEQ IVPB (13:52)
--- NOTE | 2025-02-13 15:12 | PCSTNOTE ---
Please refer to the Bedside Swallow Evaluation in the EMR. Please note, silent aspiration cannot be ruled out at bedside. The above pt was seen for a bedside swallow evaluation due to dx and witnessed choking. Pt was noted to have poor dentition with many missing teeth; she has a full upper denture & a partial lower but she she refused to wear either for testing. Vocal quality was breathy. Pt was positioned upright in the bed and tested with an ice chip, tsps of thin liquid via a spoon, pudding via a tsp, crumbled cracker via a spoon, cup sips of thin liquids, & cup sips of mildly thick liquid. The oral stages appeared WFL as no leakage, pocketing, or residual was observed. During the pharyngeal stage, laryngeal elevation appeared adequate but overt s/s of aspiration were exhibited with the thin liquids. No other overt s/s were exhibited. Impression & Recommendations: questionable degree of dysphagia due to overt s/s of aspiration with thin liquids. Orders have already been received for an MBS but until the MBS can be completed a level 5 minced and moist diet with level 2 mildly thick liquids is recommended. If difficulty is exhibited with those consistencies, return to NPO until MBS.
[2025-02-14] VITALS (26 sets, daily range): BP systolic 105–130; BP diastolic 46–67; PULSE 65–101; RESP 16–22; TEMP 36.4–36.6; O2SAT 91–100
[2025-02-14] MEDS: CEFEPIME 2 GM/NS 50 ML 2 GM/50 ML BAG IVPB ×2 (04:07→16:19)
[2025-02-14 04:32] LABS: Hematocrit 28.8 % (37.0-47.0); Hemoglobin 9.3 g/dL (12.0-15.0); Immature Granulocyte Percent A 6.9 % (0-0.5); Lymphocytes Absolute Auto 1.91 K/mm3 (0.9-3.2); Mean Corpuscular HGB Conc 32.3 g/dl (32-36); Mean Corpuscular Hemoglobin 31.4 pg (26-34); Mean Corpuscular Volume 97.3 fl (80-100); Nucleated Red Blood Cells Absolute Auto 0.020 K/mm3 (0.0-0.012); Nucleated Red Blood Cells Perc 0.1 % (0.0-0.2); Platelet Count Result 231 k/mm3 (150-375); Red Blood Count 2.96 M/mm3 (4.2-5.4); White Blood Count 18.4 K/mm3 (4.5-10.0)
[2025-02-14 04:52] LABS: Anion Gap 9 mmol/L (4-12); Blood Urea Nitrogen 26 mg/dL (7-17); Calcium 8.3 mg/dL (8.4-10.2); Carbon Dioxide 23 mmol/L (22-30); Chloride 106 mmol/L (98-107); Estimated CRCL calculation 35 ml/min; Estimated Glomerular Filt Rate 30; Glucose 98 mg/dL (65-110); Potassium 3.5 mmol/L (3.4-5.0); Sodium 138 mmol/L (137-145)
[2025-02-14 05:09] LABS: Band Neutrophils Percent 0 % (0-6)
[2025-02-14 05:10] LABS: Burr Cells 1+; Poikilocytosis 1+; Schistocytes None Seen
[2025-02-14] MEDS: DULoxetine HCL 60 MG CAPSULE.DR PO ×2 (08:20→20:55)
[2025-02-14] MEDS: SERTRALINE HCL 50 MG TABLET 100 MG PO (08:23)
[2025-02-14] MEDS: LORazepam (*CRX) 1 MG TABLET PO ×2 (09:17→20:46)
--- NOTE | 2025-02-14 09:39 | P.PNPL_ITS ---
Progress Note: A&P Assessment and Plan (1) Acute hypoxemic respiratory failure: Code(s): J96.01 - Acute respiratory failure with hypoxia Status: Acute Assessment and Plan: Patient is post recent 6 minute walk on 07/09/2023 without hypoxemia at rest or with activity. She tells me she does not use oxygen at rest or with activity at [facility]. She does wear 5 L bleed in at night with her BiPAP 07/08 which she tells me she rarely uses. Patient smokes cigarettes from age [age] at 1 pack per day, quit 40 years ago, PFTs with a restrictive abnormality and no obstructive abnormality. she presented with altered mental status and was on room air while being treated for UTI and acute kidney injury. She also had Staph bacteremia. On 02/12/2025 patient developed shortness of breath and increasing oxygen requirements up to 2 L and then 4 L and then Airvo which she could not tolerate. This was associated with a weight gain from 97.8 kilos on admission to 108.8 kg today, BMP on 02/12 was 28,200 and a chest x-ray showed cardiomegaly with mid and lower lung field infiltrates consistent with congestion or fluid overload. Patient received Lasix 40 on 02/12 in the evening. ABG on 4 L 7.45/32/57. There is no evidence of hypercarbic respiratory failure 02/13/2025: Patient placed on Vapotherm but she was screaming combative because this was burning her nose. she was placed on 4 L nasal cannula saturations 97%. Currently the patient tells me she is breathing worse than her usual. She says she has a cough that is provoked by swallowing pills. She has no chest pain. Denies fever, phlegm production or hemoptysis. White blood cell count 18.3, creatinine 1.33. When I enter the room she was on 3 L nasal cannula saturations 94%. I decreased her to 2 L nasal cannula her saturations were 91%. I spoke to the hospitalist the patient looks much improved today compared to yesterday. Plan: Agree with as aggressive diuresis as tolerated per hospitalist and bicycle assembler teams. I repeated a BNP today. The patient may or may not have a healthcare associated pneumonia and at this time would continue vancomycin (started 02/09, day 5) for her known MRSA bacteremia and cefepime, day 2. I will send a procalcitonin today and a CRP. I will send urine for Legionella, urine for pneumococcal antigen, serum mycoplasma IgM and respiratory pathogen panel looking for additional sources of infection. Patient says the levalbuterol is helping her. She does have end expiratory wheezes now which may be related to fluid overload. Will continue levalbuterol. Procalcitonin 0.8, BNP greater than 30,000, CRP 19.3. patient tells me she has difficulty swallowing and chokes on her pills. I will order modified barium swallow. goal saturation 90-94%. Wean oxygen accordingly. 02/14/2025: Patient tells me she has improved. She is less tachypneic today. She says she is breathing 50% back to her normal. She has a cough with no phlegm or hemoptysis. She is afebrile. White blood cell count 8.4, creatinine 1.68. When I enter the room she was on 1.5 L nasal cannula saturations 96%. I placed her on room air and after 12 minutes her saturations were 90-92%. Plan: Patient has improved with diuresis and treatment for possible healthcare associated pneumonia. Her creatinine is increased to 1.68 and diuretics will be adjusted per hospitalist team. Continue vancomycin, day 6 and cefepime, day 3. oxygenation has continued to improve. Discussed with Dr. Greenfield, will follow with you. (2) SIMEON treated with BiPAP: Code(s): G47.33 - Obstructive sleep apnea (adult) (pediatric) Status: Acute Assessment and Plan: Most recent download 08/09/2024 through 09/07/2024. Patient is on BiPAP 16/12 Spontaneous mode with no set rate. Usage days greater than or equal to 4 hours is 0%. Average usage on days used is 2 hours and 18 minutes. AHI 1.0, apnea index 0.6, hypopnea index 0.4, central apnea index 0.1. Median leak 1.9, 95th percentile leak 17.8, maximum leak 51.5. Median tidal volume 271. Median respiratory rate 21. Median minute ventilation 5.8. Currently patient tells me she is rarely uses her BiPAP because is uncomfortable. Plan: Patient tells me she will attempt to wear hospital BiPAP RR 14 and 16/12 with 40%. I will attempt to obtain more recent download. Later in the day I obtain download that was updated through 12 days ago and there has been no use since August 2024. 02/14/25: Patient refused to wear the hospital BiPAP. She tells me she will not wear BiPAP in the future. Plan: Patient will not wear BiPAP in the future and I will attempt to correct patient's hypoxemia at night and will perform an overnight oximetry on 3 L nasal cannula. Plan Subjective Date/time seen: 02/14/25 09:39 Interval history: 02/13/2025: This is a new pulmonary consult for hypoxemic respiratory failure. 69-year-old with a history of obstructive sleep apnea on BiPAP, bipolar, hypertension, brain tumor, CKD, patient is followed in the [facility] in last seen on 09/12/2024: This is a copy of the note. Sleep: She is on BiPAP now. She was previously on CPAP [id number] up until PAP titration in January 2022. She was prescribed initially BiPAP [id number] with 4L O2. She called the office stating the pressure was too high. BiPAP pressure was lowered to BiPAP 18/[id number] with 4L/min O2 and overnight oximetry on the lower pressure with 4L/min O2 showed 150min at or below 88% saturation, basal SpO2 89%, so we had to increase her pressure again back to BiPAP 20/16. In April 2023 we received a note from RT at [facility] stating she could not tolerate the BiPAP pressures. We went through the raw data of her last PAP titration and lowered her BiPAP settings to 16/12cm based on that data, to keep 5L/min O2 bleed in. Today she tells me overall she's doing OK with BiPAP. Still having dry mouth despite changing from nasal pillows to half-face mask but doing better on this. She's using BiPAP with 5L/min O2 bleed in. Nocturia 1x per night. Denies morning headaches. She continues to have a very fragmented sleep schedule. She goes to bed and wakes up after 3 to 4 hours sometimes goes out to her recliner and watches TV, usually 1 or 2am. She often falls back asleep in the recliner but states some nights she doesn't and she's awake until morning. She sleeps in multiple naps pretty much throughout the entire day, some naps lasting 30 minutes and other naps lasting 2 hours or more - (once in the morning and then another > 1 hr nap around 3 or 4pm until Ed gets home from work around 5:30pm). She feels tired throughout the day, sedentary and not much activity. SOB: Today states overall her PINEDA is stable. Working on losing weight, down about 10 lb since last visit 6 months ago. Denies coughing or wheezing. Occasional sputum stuck in throat. Denies sinus drainage. TOBACCO:? Former smoker, quit in 2018. Started smoking at age 21, most of the time smoked 1 pack per day x 40 years, 40 pack years. Plan: * Download 08/09/24 - 09/07/24 shows BiPAP used 60% of nights for avg usage 2h18m per night. Her usage is declined since last visit. Overall AHI is 1.0. Air leaks improved. * She is doing better with a half face mask. Will recommend chin strap. * Regarding her shortness of breath. She has a moderate restrictive abnormality with no obstruction. Encouraged to increase activity and lose weight. * Regarding her tobacco use. Low-dose CT scan November 2024. 12/05/2024: Low-dose CT scan with Lung rads 2, recommend repeat in 12 months. 12/20/2024 through 12/25/2024: Admitted to [facility] from the SNF facility with weakness and treated for UTI. 02/07/2025: Patient status post fall seen in the emergency department 02/07/2025: patient seen in [place] ED for altered mental status from the [facility]. Patient is having diarrhea. Recently admitted to the [facility] and no known baseline. Blood pressure 111/54, room air saturations 99%. Respirations 18, heart rate 71. White blood cell count 15.4, creatinine 3.63, potassium less than 2.0 UA 2+ leukocyte esterase, 11-20 white blood cells no bacteria C diff negative. patient with a history of a plane. And transferred to [facility] and then discharged to rehab and then sent to a [facility] due to not progressing in rehab. She has been wheelchair-bound. Last couple of days she has been more withdrawn. CT of the head negative. Treated for a UTI with ceftriaxone. 02/09 alert an oriented to self and place. Blood cultures Gram-positive cocci antibody is were changed to Rocephin, vancomycin Flagyl. Room air saturations 95% 02/10 Oriented to her name only. Denies shortness of breath. White blood cells 17.1, creatinine 1.75. Blood cultures positive for MRSA. Continue vancomycin, will get echo. Room air saturation 96%. 02/11/2025: Room air saturation 94% at 22:00. white blood cell count 17.4. Creatinine 1.53. Rocephin discontinued. 02/12/2025. She is and more awake oriented today. Denies shortness of breath. Echo pending. at 02:30 2 L nasal cannula saturation 94%. cardiomegaly with pulmonary edema. Left basilar atelectasis versus pneumonia. White blood cell count 19.2, creatinine 1.27. Flagyl discontinued. 02/12 at 2250: at 15:00 increased to 4 L sats 92. 40 of Lasix IV given. Cross coverage note. increasing respiratory distress. Respirations mid 30s, desats on 2 L and placed on 4 L. Noted to be wheezing and have coarse crackles bilaterally. Troponin elevated 0.287. Previously started on IV heparin drip but this was stopped due to recent intracranial bleed. Concern for HCAP. Patient consistently gagging and not a candidate for BiPAP. ABG on 4 L 7.45/32/57. 02/13/2025: Patient placed on Vapotherm but she was screaming combative because this was burning her nose. she was placed on 4 L nasal cannula saturations 97%. Currently the patient tells me she is breathing worse than her usual. She says she has a cough that is provoked by swallowing pills. She has no chest pain. Denies fever, phlegm production or hemoptysis. White blood cell count 18.3, creatinine 1.33. When I enter the room she was on 3 L nasal cannula saturations 94%. I decreased her to 2 L nasal cannula her saturations were 91%. Later in the day I obtain download that was updated through 12 days ago and there has been no use since August 2024. 02/14/2025: Patient tells me she has improved. She is less tachypneic today. She says she is breathing 50% back to her normal. She has a cough with no phlegm or hemoptysis. She is afebrile. White blood cell count 8.4, creatinine 1.68. When I enter the room she was on 1.5 L nasal cannula saturations 96%. I placed her on room air and after 12 minutes her saturations were 90-92%. Patient refused to wear the hospital BiPAP. She tells me she will not wear BiPAP in the future. DATA: * 03/22/24 - Overnight oximetry on BiPAP 16/12cm with 5L bleed in - Recorded 2h11m. Time spent at or below 88% saturation was zero minutes. Lowest SpO2 89% with basal Spo2 92.9%. Despite low recording time these results are improved and we recommended to continue BiPAP with 5L. * 03/19/24 - Overnight oximetry on BiPAP 16/12cm with 4L bleed in - Recorded 3h51m. Time spent at or below 88% oxygen saturation was 1h8m. Lowest SpO2 85%. Advised patient to increase to BiPAP with 5L bleed in. * 03/23/24 - PFT - There is a mild restrictive ventilatory abnormality with a normal FEV1. The spirometry is normal without evidence of an obstructive abnormality. There is no significant improvement after inhaling a single dose of albuterol. The diffusing capacity unadjusted for hemoglobin and carboxyhemoglobin is mildly decreased and normalizes when adjusted for alveolar volume. In comparison to previous pulmonary function testing on 03/19/2021 there has been a greater than anticipated time dependent decrease in the diffusing capacity adjusted for alveolar volume with no significant change in the FVC, FEV1, total lung capacity, functional residual capacity, residual volume, or diffusing capacity unadjusted for hemoglobin and carboxyhemoglobin. * 12/06/23 - LDCT - 3 mm kiana-fissural nodule noted in the right lung (axial image 57). Images through the upper abdomen reveal 1.9 cm left adrenal nodule. There is evidence of prior bariatric surgery. * 07/09/23 - 6mw - Normal, she did not require supplemental oxygen at rest or with ambulation. * 12/02/22 - LDCT - Stable 3mm fissural nodule on the right. There is a 3mm left fissural nodule on the left. No endobronchial lesions. No focal airspace consolidation. No new pulmonary nodules or masses. * 03/19/21 PFT - PFT 03/19/21 - There is a moderate restrictive ventilatory abnormality. The spirometry is normal without evidence of an obstructive abnormality. There is no significant improvement after inhaling a single dose of albuterol. The absolute diffusing capacity is mildly decreased and normalizes when corrected for alveolar volume. FEV1 65% of predicted, FEV1/FVC ratio is 79%. * 12/05/2020? nocturnal oximetry on CPAP 12 cm and 4 L/min =? lowest saturation 75%, 6.3 minutes below 88%.? Average oxygen desaturation event is 22. This indicates that she?needs a repeat sleep study. * 10/23/2020? nocturnal oximetry on CPAP 12 and 3 L/ minute,? lowest saturation 73% 1 hour 13 minutes spent below 88%, 16.9% of the study average saturation 90%.?After this study she was called and told to increase night time O2 to 4 L/min * Chest CT 11/11/2020 Lung-RADS category 2, benign appearance or behavior (<1% chance of malignancy); recommend continued LDCT screening in 1 year. 3 mm nodule along each major fissure; several regions of bilateral linear scarring; mild emphysema. Previously seen pneumonia has resolved.? * PFT 03/15/2020 at [place] showed FEV1 90%, normal FEV1%, TLC 81%, mild air trapping RV/TLC 41%, DLCO 56%. DDx includes ILD, pneumonitis; anemia and pulmonary hypertension need to be excluded. * Echo 02/05/2020 LV systolic function normal, estimated at 65-70%. Grade I diastolic dysfunction. Mild aortic stenosis. Unable to estimate PA systolic pressure due to limited views, technically difficult study. Review of Systems Constitutional: Constitutional: Reports no additional constitutional complaints Eyes: Eyes: Reports no additional eye complaints ENT: Reports system reviewed and no additional complaints, except as documented Cardiovascular: Cardiovascular: Reports no additional cardiovascular complaints Respiratory: Respiratory: Reports no additional respiratory complaints Gastrointestinal: Gastrointestinal: Reports no additional gastrointestinal complaints Musculoskeletal: Musculoskeletal: Reports no additional musculoskeletal complaints Neurologic: Reports system reviewed and no additional complaints, except as documented Psychiatric: Psychiatric: Reports no additional psychiatric complaints Endocrine: Endocrine: Reports no additional endocrine complaints Hematologic/Lymphatic: Hematologic/Lymphatic: Reports no additional hematologic/lymphatic complaints Allergic/Immunologic: Allergic/Immunologic: Reports no additional allergic/immunologic complaints Exam Const: General: cooperative and in distress Orientation/consciousness: oriented to person, oriented to place and oriented to time Other: Obese, HENMT: Head: normal to inspection Ears: hearing grossly normal bilaterally Eyes: General: appearance normal, both eyes and all related structures Neck: Neck: normal visual inspection Chest: Chest palpation & inspection: normal inspection of the chest Resp: Effort & Inspection: normal respiratory effort and able to speak in complete sentences Auscultation: crackles, no rales, no rhonchi, no wheezes and lung sounds not diminished Other: crackles throughout, and expiratory wheezes. Cardio: Jugular venous distension: no JVD GI: Inspection: normal to inspection Skin: General skin exam: normal color Neuro: General: oriented to person, oriented to place and oriented to time Extrem: General: normal to inspection and edema Psych: Appearance: grossly normal Objective Data Vital Signs Vital Signs: Vital Signs - 24 hr 02/13/25 10:00 02/13/25 12:00 02/13/25 12:30 Temperature 36.6 C Pulse Rate 78 81 78 Respiratory Rate 26 H 22 H Blood Pressure 123/58 L Pulse Oximetry 91 91 Oxygen Delivery High Flow Nasal Cannula Oxygen Flow Rate 4 02/13/25 12:30 02/13/25 14:00 02/13/25 14:28 Temperature Pulse Rate 80 97 78 Respiratory Rate 14 Blood Pressure Pulse Oximetry Oxygen Delivery Oxygen Flow Rate 02/13/25 15:51 02/13/25 16:45 02/13/25 16:45 Temperature 36.6 C Pulse Rate 82 80 72 Respiratory Rate 22 H 24 H Blood Pressure 102/38 L Pulse Oximetry 97 91 Oxygen Delivery High Flow Nasal Cannula Oxygen Flow Rate 4 02/13/25 18:00 02/13/25 19:00 02/13/25 20:00 Temperature Pulse Rate 81 90 Respiratory Rate 22 H Blood Pressure Pulse Oximetry 97 94 Oxygen Delivery High Flow Nasal Cannula High Flow Nasal Cannula Oxygen Flow Rate 3 3 02/13/25 20:00 02/13/25 20:24 02/13/25 20:28 Temperature 37.1 C Pulse Rate 83 85 83 Respiratory Rate 20 Blood Pressure 116/82 Pulse Oximetry 97 Oxygen Delivery Oxygen Flow Rate 02/13/25 21:26 02/13/25 21:32 02/13/25 21:39 Temperature Pulse Rate 82 82 82 Respiratory Rate 16 16 Blood Pressure Pulse Oximetry 95 Oxygen Delivery Nasal Cannula Oxygen Flow Rate 3 02/13/25 22:00 02/14/25 00:00 02/14/25 00:00 Temperature Pulse Rate 75 71 Respiratory Rate Blood Pressure Pulse Oximetry 92 Oxygen Delivery High Flow Nasal Cannula Oxygen Flow Rate 4 02/14/25 00:00 02/14/25 02:00 02/14/25 02:12 Temperature 36.5 C Pulse Rate 90 82 78 Respiratory Rate 19 18 Blood Pressure 117/55 L Pulse Oximetry 94 Oxygen Delivery Oxygen Flow Rate 02/14/25 02:20 02/14/25 03:41 02/14/25 04:00 Temperature 36.4 C Pulse Rate 79 91 Respiratory Rate 18 20 Blood Pressure 119/52 L Pulse Oximetry 97 99 Oxygen Delivery High Flow Nasal Cannula Oxygen Flow Rate 3 02/14/25 04:00 02/14/25 06:00 02/14/25 07:21 Temperature Pulse Rate 68 70 Respiratory Rate Blood Pressure Pulse Oximetry 95 Oxygen Delivery Nasal Cannula Oxygen Flow Rate 3 02/14/25 07:21 02/14/25 07:27 02/14/25 07:32 Temperature 36.4 C L Pulse Rate 83 81 100 Respiratory Rate 16 20 16 Blood Pressure 130/67 Pulse Oximetry 100 Oxygen Delivery Oxygen Flow Rate 02/14/25 08:20 Temperature Pulse Rate 90 Respiratory Rate Blood Pressure Pulse Oximetry Oxygen Delivery Oxygen Flow Rate Intake/Output Intake/Output: Intake & Output 02/11/25 02/12/25 02/13/25 02/14/25 23:59 23:59 23:59 23:59 Intake Total 1320 2160 870.0 150 Output Total 450 150 Balance 1320 2160 420.0 0 Meds/Results Medications: Active Medications Generic Name Dose Route Start Last Admin Trade Name Freq PRN Reason Stop Dose Admin Acetaminophen 650 mg 02/07/25 15:41 02/07/25 20:34 Acetaminophen 325 Mg Tablet PO 650 mg Q4H PRN Administration Mild Pain (1-3) or Fever Hydrocodone Bitart/Acetaminophen 1 tab 02/07/25 15:41 02/12/25 03:11 Hydrocodone/Acetaminophen (*Crx) 5-325 Mg Tablet PO 1 tab Q4H PRN Administration Pain Rated 4-6 Artificial Tears 1 drop 02/08/25 09:32 Artificial Tears Ophth Soln 15 Ml Bottle EACH EYE 03/10/25 09:31 PRN PRN dry eye(s) Carvedilol 18.75 mg 02/08/25 09:00 02/14/25 08:20 Carvedilol 6.25 Mg Tablet PO 18.75 mg Q12HR CARLIN Administration Duloxetine HCl 60 mg 02/08/25 09:00 02/14/25 08:20 Duloxetine Hcl 60 Mg Capsule.Dr PO 60 mg Q12HR CARLIN Administration Furosemide 40 mg 02/13/25 10:30 02/13/25 20:36 Furosemide Inj 40 Mg/4 Ml Vial IV PUSH 40 mg Q12HR CARLIN Administration Heparin Sodium (Porcine) 5,000 units 02/13/25 14:00 02/14/25 05:06 Heparin Sodium 5,000 Units/Ml Vial SUB-Q 5,000 units Q8HR CARLIN Administration Cefepime HCl 2 gm in 50 mls @ 100 mls/hr 02/13/25 04:00 02/14/25 04:37 Maxipime 2 Gm/Ns 50 Ml IVPB Infused Q12H CARLIN Infusion Vancomycin HCl 1,000 mg in 250 mls @ 250 mls/hr 02/13/25 09:00 02/13/25 12:52 Vancomycin 1,000 Mg/Ns 250 Ml IVPB Infused Q24H CARLIN Infusion Lamotrigine 200 mg 02/08/25 09:00 02/14/25 08:23 Lamotrigine 100 Mg Tablet PO 200 mg Q12HR CARLIN Administration Levalbuterol HCl 1.25 mg 02/11/25 20:00 02/14/25 07:20 Levalbuterol Neb 1.25 Mg/3 Ml INHALATION 1.25 mg Q6HRT CARLIN Administration Loperamide HCl 2 mg 02/07/25 18:18 02/12/25 14:35 Loperamide Hcl 2 Mg Capsule PO 2 mg PRN PRN Administration Diarrhea Lorazepam 1 mg 02/09/25 15:15 02/14/25 09:17 Lorazepam (*Crx) 1 Mg Tablet PO 1 mg Q8H PRN Administration Anxiety Ondansetron HCl 4 mg 02/07/25 15:41 02/13/25 12:53 Ondansetron Inj 4 Mg/2 Ml Vial IV PUSH 4 mg Q4H PRN Administration Nausea Sertraline HCl 100 mg 02/08/25 09:00 02/14/25 08:23 Sertraline Hcl 50 Mg Tablet PO 100 mg DAILY CARLIN Administration Radiology Results: ITS Impressions Head CT 02/07/25 18:39 Impression: No acute intracranial hemorrhage or suspicious mass effect. Renal Ultrasound 02/08/25 19:23 IMPRESSION: No hydronephrosis or renal calculi. Parenchyma of the bilateral kidneys are unremarkable. Chest X-Ray 02/12/25 16:28 IMPRESSION: Bilateral pneumonia. Underlying pulmonary edema cannot be excluded Labs Labs: Laboratory Results - last 24 hr 02/13/25 02/13/25 02/14/25 06:28 06:38 04:13 WBC 18.4 H RBC 2.96 L Hgb 9.3 L Hct 28.8 L MCV 97.3 MCH 31.4 MCHC 32.3 RDW 17.4 H Plt Count 231 MPV 9.2 Immature Gran % (Auto) 6.9 H Neut % (Auto) 75.7 H Lymph % (Auto) 10.4 L [place] % (Auto) 6.1 Eos % (Auto) 0.5 Baso % (Auto) 0.4 Lymph # (Auto) 1.91 [place] # (Auto) 1.1 H Eos # (Auto) 0.1 Baso # (Auto) 0.1 Abs Immat Gran (auto) 1.28 H Absolute Neuts (auto) 14.0 H Absolute Nucleated RBC 0.020 H Band Neutrophils % 0 Nucleated RBC % 0.1 Platelet Estimate Adequate Poikilocytosis 1+ [place] Cells 1+ Schistocytes None seen Sodium Potassium Chloride Carbon Dioxide Anion Gap BUN Creatinine Estim Creat Clear Calc Estimated GFR Glucose Calcium C-Reactive Protein 19.3 H NT-Pro-B Natriuret Pep > 43518 H Procalcitonin 0.8 Vancomycin Trough 02/14/25 02/14/25 04:14 08:04 WBC RBC Hgb Hct MCV MCH MCHC RDW Plt Count MPV Immature Gran % (Auto) Neut % (Auto) Lymph % (Auto) [place] % (Auto) Eos % (Auto) Baso % (Auto) Lymph # (Auto) [place] # (Auto) Eos # (Auto) Baso # (Auto) Abs Immat Gran (auto) Absolute Neuts (auto) Absolute Nucleated RBC Band Neutrophils % Nucleated RBC % Platelet Estimate Poikilocytosis [place] Cells Schistocytes Sodium 138 Potassium 3.5 Chloride 106 Carbon Dioxide 23 Anion Gap 9 BUN 26 H Creatinine 1.68 H Estim Creat Clear Calc 35 Estimated GFR 30 L Glucose 98 Calcium 8.3 L C-Reactive Protein NT-Pro-B Natriuret Pep Procalcitonin Vancomycin Trough 21.6 H
--- NOTE | 2025-02-14 10:50 | PCSTNOTE ---
Please refer to the Modified Barium Swallow Evaluation in the EMR.
--- NOTE | 2025-02-14 12:59 | PM.PNCARD ---
Progress Note: A&P Assessment and Plan (1) Diastolic dysfunction: Code(s): I51.89 - Other ill-defined heart diseases Status: Acute (2) HTN (hypertension): Qualifiers: Hypertension type: essential hypertension Qualified Code(s): I10 - Essential (primary) hypertension Code(s): I10 - Essential (primary) hypertension Status: Chronic Plan 69 year old female with bipolar disorder, hypertension, CKD, SIMEON, brain tumor who was admitted on 02/07 with altered mental status from her fdc Acute hypoxic respiratory failure -currently appears euvolemic and will discontinue diuresis especially in light of worsening renal function Chronic diastolic heart failure -appears euvolemic well laying flat in supine position without respiratory distress -will discontinue diuresis Hypertension -carvedilol No further inpatient workup warranted at this time. Cardiology will sign off. Subjective Date/time seen: 02/14/25 12:59 Interval history: Denies shortness of breath chest discomfort Review of Systems Cardiovascular: Cardiovascular: Reports as per HPI Respiratory: Respiratory: Reports as per HPI Exam Narrative: Refuses physical examination today Objective Data Vital Signs Vital Signs: Vital Signs - 24 hr 02/13/25 14:00 02/13/25 14:28 02/13/25 15:51 Temperature 36.6 C Pulse Rate 97 78 82 Respiratory Rate 14 22 H Blood Pressure 102/38 L Pulse Oximetry 97 Oxygen Delivery Oxygen Flow Rate 02/13/25 16:45 02/13/25 16:45 02/13/25 18:00 Temperature Pulse Rate 80 72 81 Respiratory Rate 24 H Blood Pressure Pulse Oximetry 91 Oxygen Delivery High Flow Nasal Cannula Oxygen Flow Rate 4 02/13/25 19:00 02/13/25 20:00 02/13/25 20:00 Temperature Pulse Rate 90 83 Respiratory Rate 22 H Blood Pressure Pulse Oximetry 97 94 Oxygen Delivery High Flow Nasal Cannula High Flow Nasal Cannula Oxygen Flow Rate 3 3 02/13/25 20:24 02/13/25 20:28 02/13/25 21:26 Temperature 37.1 C Pulse Rate 85 83 82 Respiratory Rate 20 16 Blood Pressure 116/82 Pulse Oximetry 97 Oxygen Delivery Oxygen Flow Rate 02/13/25 21:32 02/13/25 21:39 02/13/25 22:00 Temperature Pulse Rate 82 82 75 Respiratory Rate 16 Blood Pressure Pulse Oximetry 95 Oxygen Delivery Nasal Cannula Oxygen Flow Rate 3 02/14/25 00:00 02/14/25 00:00 02/14/25 00:00 Temperature 36.5 C Pulse Rate 71 90 Respiratory Rate 19 Blood Pressure 117/55 L Pulse Oximetry 92 94 Oxygen Delivery High Flow Nasal Cannula Oxygen Flow Rate 4 02/14/25 02:00 02/14/25 02:12 02/14/25 02:20 Temperature Pulse Rate 82 78 79 Respiratory Rate 18 18 Blood Pressure Pulse Oximetry Oxygen Delivery Oxygen Flow Rate 02/14/25 03:41 02/14/25 04:00 02/14/25 04:00 Temperature 36.4 C Pulse Rate 91 68 Respiratory Rate 20 Blood Pressure 119/52 L Pulse Oximetry 97 99 Oxygen Delivery High Flow Nasal Cannula Oxygen Flow Rate 3 02/14/25 06:00 02/14/25 07:21 02/14/25 07:21 Temperature Pulse Rate 70 83 Respiratory Rate 16 Blood Pressure Pulse Oximetry 95 Oxygen Delivery Nasal Cannula Oxygen Flow Rate 3 02/14/25 07:27 02/14/25 07:32 02/14/25 08:20 Temperature 36.4 C L Pulse Rate 81 100 90 Respiratory Rate 20 16 Blood Pressure 130/67 Pulse Oximetry 100 Oxygen Delivery Oxygen Flow Rate 02/14/25 11:50 Temperature 36.4 C Pulse Rate 71 Respiratory Rate 18 Blood Pressure 105/50 L Pulse Oximetry 96 Oxygen Delivery Oxygen Flow Rate Intake/Output Intake/Output: Intake & Output 02/11/25 02/12/25 02/13/25 02/14/25 23:59 23:59 23:59 23:59 Intake Total 1320 2160 870.0 150 Output Total 450 150 Balance 1320 2160 420.0 0 Meds/Results Medications: Active Medications Generic Name Dose Route Start Last Admin Trade Name Freq PRN Reason Stop Dose Admin Acetaminophen 650 mg 02/07/25 15:41 02/07/25 20:34 Acetaminophen 325 Mg Tablet PO 650 mg Q4H PRN Administration Mild Pain (1-3) or Fever Hydrocodone Bitart/Acetaminophen 1 tab 02/07/25 15:41 02/12/25 03:11 Hydrocodone/Acetaminophen (*Crx) 5-325 Mg Tablet PO 1 tab Q4H PRN Administration Pain Rated 4-6 Artificial Tears 1 drop 02/08/25 09:32 Artificial Tears Ophth Soln 15 Ml Bottle EACH EYE 03/10/25 09:31 PRN PRN dry eye(s) Carvedilol 18.75 mg 02/08/25 09:00 02/14/25 08:20 Carvedilol 6.25 Mg Tablet PO 18.75 mg Q12HR CARLIN Administration Duloxetine HCl 60 mg 02/08/25 09:00 02/14/25 08:20 Duloxetine Hcl 60 Mg Capsule.Dr PO 60 mg Q12HR CARLIN Administration Furosemide 40 mg 02/13/25 10:30 02/13/25 20:36 Furosemide Inj 40 Mg/4 Ml Vial IV PUSH 40 mg Q12HR CARLIN Administration Heparin Sodium (Porcine) 5,000 units 02/13/25 14:00 02/14/25 05:06 Heparin Sodium 5,000 Units/Ml Vial SUB-Q 5,000 units Q8HR CARLIN Administration Cefepime HCl 2 gm in 50 mls @ 100 mls/hr 02/13/25 04:00 02/14/25 04:37 Maxipime 2 Gm/Ns 50 Ml IVPB Infused Q12H CARLIN Infusion Vancomycin HCl 750 mg in 250 mls @ 250 mls/hr 02/15/25 09:00 Vancomycin 750 Mg/Ns 250 Ml IVPB Q24H CARLIN Lamotrigine 200 mg 02/08/25 09:00 02/14/25 08:23 Lamotrigine 100 Mg Tablet PO 200 mg Q12HR CARLIN Administration Levalbuterol HCl 1.25 mg 02/11/25 20:00 02/14/25 07:20 Levalbuterol Neb 1.25 Mg/3 Ml INHALATION 1.25 mg Q6HRT CARLIN Administration Loperamide HCl 2 mg 02/07/25 18:18 02/12/25 14:35 Loperamide Hcl 2 Mg Capsule PO 2 mg PRN PRN Administration Diarrhea Lorazepam 1 mg 02/09/25 15:15 02/14/25 09:17 Lorazepam (*Crx) 1 Mg Tablet PO 1 mg Q8H PRN Administration Anxiety Ondansetron HCl 4 mg 02/07/25 15:41 02/13/25 12:53 Ondansetron Inj 4 Mg/2 Ml Vial IV PUSH 4 mg Q4H PRN Administration Nausea Sertraline HCl 100 mg 02/08/25 09:00 02/14/25 08:23 Sertraline Hcl 50 Mg Tablet PO 100 mg DAILY CARLIN Administration Radiology Results: ITS Impressions Head CT 02/07/25 18:39 Impression: No acute intracranial hemorrhage or suspicious mass effect. Renal Ultrasound 02/08/25 19:23 IMPRESSION: No hydronephrosis or renal calculi. Parenchyma of the bilateral kidneys are unremarkable. Chest X-Ray 02/12/25 16:28 IMPRESSION: Bilateral pneumonia. Underlying pulmonary edema cannot be excluded Modified Barium Swallow 02/14/25 11:22 IMPRESSION: Mild pharyngeal dysphagia with laryngeal penetration without aspiration. Please correlate with speech pathologist findings and specific feeding recommendations. Labs Labs: Laboratory Results - last 24 hr 02/14/25 02/14/25 02/14/25 04:13 04:14 08:04 WBC 18.4 H RBC 2.96 L Hgb 9.3 L Hct 28.8 L MCV 97.3 MCH 31.4 MCHC 32.3 RDW 17.4 H Plt Count 231 MPV 9.2 Immature Gran % (Auto) 6.9 H Neut % (Auto) 75.7 H Lymph % (Auto) 10.4 L [place] % (Auto) 6.1 Eos % (Auto) 0.5 Baso % (Auto) 0.4 Lymph # (Auto) 1.91 [place] # (Auto) 1.1 H Eos # (Auto) 0.1 Baso # (Auto) 0.1 Abs Immat Gran (auto) 1.28 H Absolute Neuts (auto) 14.0 H Absolute Nucleated RBC 0.020 H Band Neutrophils % 0 Nucleated RBC % 0.1 Platelet Estimate Adequate Poikilocytosis 1+ Sushma Cells 1+ Schistocytes None seen Sodium 138 Potassium 3.5 Chloride 106 Carbon Dioxide 23 Anion Gap 9 BUN 26 H Creatinine 1.68 H Estim Creat Clear Calc 35 Estimated GFR 30 L Glucose 98 Calcium 8.3 L Vancomycin Trough 21.6 H
--- NOTE | 2025-02-14 15:21 | P.PNIM_ITS ---
Progress Note: A&P Assessment and Plan (1) Altered mental status: Code(s): R41.82 - Altered mental status, unspecified Status: Acute Assessment and Plan: Infection verses stroke versus electrolyte imbalance versus other CT head no acute findings Replete electrolytes as needed IV antibiotics for infection. vancomycin, Blood culture positive for MRSA. Continue vancomycin TTE neg for endocarditis. per cardiology if repeat B/C neg no need for QI Repeat blood culture since 02/09/2025 has been negative Follow-up blood culture results Holding sedated of medications until more alert PT/OT/ST (2) JERRY (acute kidney injury): Code(s): N17.9 - Acute kidney failure, unspecified Status: Acute Assessment and Plan: IV fluids for hydration worsening will hold lasix Repeat BMP US renal unremarkable (3) Acute hypokalemia: Code(s): E87.6 - Hypokalemia Status: Acute Assessment and Plan: replaced, continue monitoring (4) UTI (urinary tract infection): Qualifiers: Urinary tract infection type: acute cystitis Hematuria presence: without hematuria Qualified Code(s): N30.00 - Acute cystitis without hematuria Code(s): N39.0 - Urinary tract infection, site not specified Status: Acute Assessment and Plan: Could be causing altered mental status received rocephin (5) Diarrhea: Code(s): R19.7 - Diarrhea, unspecified Status: Acute Assessment and Plan: Likely cause of acute dehydration and hypokalemia Negative for C diff Imodium (6) Bipolar disorder: Qualifiers: Active/Remission status: in remission of unspecified degree Qualified Code(s): F31.70 - Bipolar disorder, currently in remission, most recent episode unspecified Code(s): F31.9 - Bipolar disorder, unspecified Status: Acute Assessment and Plan: Patient will need to be restarted on Lamictal when she can swallow (7) HTN (hypertension): Qualifiers: Hypertension type: essential hypertension Qualified Code(s): I10 - Essential (primary) hypertension Code(s): I10 - Essential (primary) hypertension Status: Chronic Assessment and Plan: lasix dc due to JERRY (8) Diastolic dysfunction: Code(s): I51.89 - Other ill-defined heart diseases Status: Acute Assessment and Plan: Acute on chronic HFpEF continue lasix cardiology team on board (9) Obstructive sleep apnea on CPAP: Code(s): G47.33 - Obstructive sleep apnea (adult) (pediatric); Z99.89 - Dependence on other enabling machines and devices Status: Acute Assessment and Plan: Does not appear to be on home CPAP (10) Sepsis: Code(s): A41.9 - Sepsis, unspecified organism Status: Acute Assessment and Plan: possible pneumonia vs UTI IV antibiotics for infection. received Rocephin, vancomycin, Flagyl. continue vancomycin cefepime for possible pneumonia Blood culture positive for mRSA Follow-up blood culture results TTE neg for endocarditis pulmonary team on board (11) NSTEMI (non-ST elevated myocardial infarction): Code(s): I21.4 - Non-ST elevation (NSTEMI) myocardial infarction Status: Acute Assessment and Plan: likely demand ischemia monitor for now Cardiology team on board Plan DVT prophylaxis on Sq Heparin Subjective Date/time seen: 02/14/25 15:21 Interval history: per HPI: 69-year-old female history of bipolar 1, hypertension, brain tumor, iron deficiency anemia, CKD and SIMEON presents to the hospital with altered mental status from a residential. HPI is limited due to altered mental status. Per the the patient had a fall was found to have a brain bleed and was transferred to [facility] and then discharged to rehab and then sent to a residential due to not progressing in rehab. She has been wheelchair- bound. He states that over the last couple days she became more and more withdrawn. He is unaware of her having another fall Lab work in the ED shows leukocytosis at 15.4, hemoglobin of 11.9, sodium of 133, potassium a less than 2, creatinine of 3.36 baseline being 1, GFR 12, AST 57 ALT 46, UA with 2+ leukocyte esterase moderate squamous cells negative nitrates and yeast, and C diff is negative 02/09/25 Patient was seen and examined at [facility]. She is alert oriented to herself and place. Denies any chest pain, shortness of breath, abd pain, N/V. Blood culture positive for Gram-positive cocci in cluster. Antibiotics were changed to Rocephin, vancomycin and Flagyl. Discussed with pharmacy team. Repeat blood culture was ordered. Renal ultrasound unremarkable 02/10/25 Patient was seen examined with. She is oriented to her name only. Denies any chest pain, shortness of breath, abdominal pain, nausea vomiting WBC improved to 17.1. Potassium 3.3. Creatinine improved to 1.75 Blood culture positive for MRSA. Will get echo. Continue with vancomycin 02/11/25 Patient was seen and examined at bedside. She is alert oriented to her name and place denies any chest pain, shortness off breath, abdominal pain, nausea vomiting. No acute event overnight. Kidney function improving. WBC 17.4. Echo pending. Repeat blood culture since 02/09/2025 has been negative 02/12/25 Patient was seen examined at bedside. She isn't more awake oriented today. Denies any chest pain, shortness to stop breath, abdominal pain, nausea vomiting. Continue with vancomycin. Echo pending. 02/13/25 Patient was seen examined at bedside. She is more alert oriented today. She is on 2 L oxygen. Pulmonary and cardiology team on board. Plan for modified barium swallow. Continue with Lasix continue with vancomycin and cefepime. TTE negative for vegetation. per cardiology we need to repeat B/C and then decide 02/14/25 Patient was seen and examined at bedside. She is alert oriented to her name and place denies any chest pain, shortness off breath, abdominal pain, nausea vomiting. No acute event overnight. patient has worsening kidney function will dc lasix. her breathing improving and sat is 94% on 1 lit O2 Review of Systems Review of Systems: 12 systems were reviewed and are negativ e except for as per HPI. ROS unobtainable: Yes unobtainable due to mental status Exam Narrative: General: Chronically ill, appears older than stated age HEENT: normocephalic, atraumatic. Mucous membranes moist. EOMI, PERRLA, bilateral sclera anicteric, no conjunctival injection. Neck supple without JVD, lymphadenopathy, or bruit. Respiratory: crackles to ascultation bilaterally. s. Cardiovascular: Regular rate and rhythm, normal S1-S2 upon ascultation. No murmurs, rubs, or clicks. PMI is nondisplaced, capillary refill less than 3 second. Abdomen: Soft, round, no pulsatile masses, nondistended and nontender. No rebound, no guarding. No CVA tenderness, no hepatosplenomegaly. Bowel sounds present to all four quadrants. No high pitch or tinkling sounds, resonant to percussion. Extremities: No cyanosis, clubbing, Pulses are palpable 2/2. Patient has trouble following commands. 4+ lower extremity edema Neuro: Alert and orientated x 2. PERRLA. Cranial nerves 2-12 intact without focal deficit. Skin: Warm, dry, and intact, without rash, erythema, or lesion. Psych: Unable to assess Objective Data Vital Signs Vital Signs: Vital Signs - 24 hr 02/13/25 15:51 02/13/25 16:45 02/13/25 16:45 Temperature 98 F Pulse Rate 82 80 72 Respiratory Rate 22 H 24 H Blood Pressure 102/38 L Pulse Oximetry 97 91 Oxygen Delivery High Flow Nasal Cannula Oxygen Flow Rate 4 02/13/25 18:00 02/13/25 19:00 02/13/25 20:00 Temperature Pulse Rate 81 90 Respiratory Rate 22 H Blood Pressure Pulse Oximetry 97 94 Oxygen Delivery High Flow Nasal Cannula High Flow Nasal Cannula Oxygen Flow Rate 3 3 02/13/25 20:00 02/13/25 20:24 02/13/25 20:28 Temperature 98.8 F Pulse Rate 83 85 83 Respiratory Rate 20 Blood Pressure 116/82 Pulse Oximetry 97 Oxygen Delivery Oxygen Flow Rate 02/13/25 21:26 02/13/25 21:32 02/13/25 21:39 Temperature Pulse Rate 82 82 82 Respiratory Rate 16 16 Blood Pressure Pulse Oximetry 95 Oxygen Delivery Nasal Cannula Oxygen Flow Rate 3 02/13/25 22:00 02/14/25 00:00 02/14/25 00:00 Temperature Pulse Rate 75 71 Respiratory Rate Blood Pressure Pulse Oximetry 92 Oxygen Delivery High Flow Nasal Cannula Oxygen Flow Rate 4 02/14/25 00:00 02/14/25 02:00 02/14/25 02:12 Temperature 97.7 F Pulse Rate 90 82 78 Respiratory Rate 19 18 Blood Pressure 117/55 L Pulse Oximetry 94 Oxygen Delivery Oxygen Flow Rate 02/14/25 02:20 02/14/25 03:41 02/14/25 04:00 Temperature 97.6 F Pulse Rate 79 91 Respiratory Rate 18 20 Blood Pressure 119/52 L Pulse Oximetry 97 99 Oxygen Delivery High Flow Nasal Cannula Oxygen Flow Rate 3 02/14/25 04:00 02/14/25 06:00 02/14/25 07:21 Temperature Pulse Rate 68 70 Respiratory Rate Blood Pressure Pulse Oximetry 95 Oxygen Delivery Nasal Cannula Oxygen Flow Rate 3 02/14/25 07:21 02/14/25 07:27 02/14/25 07:32 Temperature 97.5 F L Pulse Rate 83 81 100 Respiratory Rate 16 20 16 Blood Pressure 130/67 Pulse Oximetry 100 Oxygen Delivery Oxygen Flow Rate 02/14/25 08:00 02/14/25 08:00 02/14/25 08:20 Temperature Pulse Rate 65 90 Respiratory Rate Blood Pressure Pulse Oximetry 96 Oxygen Delivery Nasal Cannula Oxygen Flow Rate 3 02/14/25 10:00 02/14/25 11:50 02/14/25 12:30 Temperature 97.6 F Pulse Rate 65 71 Respiratory Rate 18 16 Blood Pressure 105/50 L Pulse Oximetry 96 95 Oxygen Delivery Nasal Cannula Oxygen Flow Rate 1 02/14/25 12:30 02/14/25 13:14 02/14/25 13:21 Temperature Pulse Rate 80 67 65 Respiratory Rate 16 16 Blood Pressure Pulse Oximetry Oxygen Delivery Oxygen Flow Rate 02/14/25 14:00 Temperature Pulse Rate 69 Respiratory Rate Blood Pressure Pulse Oximetry Oxygen Delivery Oxygen Flow Rate Intake/Output Intake/Output: Intake & Output 02/11/25 02/12/25 02/13/25 02/14/25 23:59 23:59 23:59 23:59 Intake Total 1320 2160 870.0 150 Output Total 450 150 Balance 1320 2160 420.0 0 Meds/Results Medications: Active Medications Generic Name Dose Route Start Last Admin Trade Name Freq PRN Reason Stop Dose Admin Acetaminophen 650 mg 02/07/25 15:41 02/07/25 20:34 Acetaminophen 325 Mg Tablet PO 650 mg Q4H PRN Administration Mild Pain (1-3) or Fever Hydrocodone Bitart/Acetaminophen 1 tab 02/07/25 15:41 02/12/25 03:11 Hydrocodone/Acetaminophen (*Crx) 5-325 Mg Tablet PO 1 tab Q4H PRN Administration Pain Rated 4-6 Artificial Tears 1 drop 02/08/25 09:32 Artificial Tears Ophth Soln 15 Ml Bottle EACH EYE 03/10/25 09:31 PRN PRN dry eye(s) Carvedilol 18.75 mg 02/08/25 09:00 02/14/25 08:20 Carvedilol 6.25 Mg Tablet PO 18.75 mg Q12HR CARLIN Administration Duloxetine HCl 60 mg 02/08/25 09:00 02/14/25 08:20 Duloxetine Hcl 60 Mg Capsule.Dr PO 60 mg Q12HR CARLIN Administration Furosemide 40 mg 02/13/25 10:30 02/13/25 20:36 Furosemide Inj 40 Mg/4 Ml Vial IV PUSH 40 mg Q12HR CARLIN Administration Heparin Sodium (Porcine) 5,000 units 02/13/25 14:00 02/14/25 05:06 Heparin Sodium 5,000 Units/Ml Vial SUB-Q 5,000 units Q8HR CARLIN Administration Cefepime HCl 2 gm in 50 mls @ 100 mls/hr 02/13/25 04:00 02/14/25 04:37 Maxipime 2 Gm/Ns 50 Ml IVPB Infused Q12H CARLIN Infusion Vancomycin HCl 750 mg in 250 mls @ 250 mls/hr 02/15/25 09:00 Vancomycin 750 Mg/Ns 250 Ml IVPB Q24H CARLIN Lamotrigine 200 mg 02/08/25 09:00 02/14/25 08:23 Lamotrigine 100 Mg Tablet PO 200 mg Q12HR CARLIN Administration Levalbuterol HCl 1.25 mg 02/11/25 20:00 02/14/25 13:10 Levalbuterol Neb 1.25 Mg/3 Ml INHALATION 1.25 mg Q6HRT CARLIN Administration Loperamide HCl 2 mg 02/07/25 18:18 02/12/25 14:35 Loperamide Hcl 2 Mg Capsule PO 2 mg PRN PRN Administration Diarrhea Lorazepam 1 mg 02/09/25 15:15 02/14/25 09:17 Lorazepam (*Crx) 1 Mg Tablet PO 1 mg Q8H PRN Administration Anxiety Ondansetron HCl 4 mg 02/07/25 15:41 02/13/25 12:53 Ondansetron Inj 4 Mg/2 Ml Vial IV PUSH 4 mg Q4H PRN Administration Nausea Sertraline HCl 100 mg 02/08/25 09:00 02/14/25 08:23 Sertraline Hcl 50 Mg Tablet PO 100 mg DAILY CARLIN Administration Radiology Results: ITS Impressions Head CT 02/07/25 18:39 Impression: No acute intracranial hemorrhage or suspicious mass effect. Renal Ultrasound 02/08/25 19:23 IMPRESSION: No hydronephrosis or renal calculi. Parenchyma of the bilateral kidneys are unremarkable. Chest X-Ray 02/12/25 16:28 IMPRESSION: Bilateral pneumonia. Underlying pulmonary edema cannot be excluded Modified Barium Swallow 02/14/25 11:22 IMPRESSION: Mild pharyngeal dysphagia with laryngeal penetration without aspiration. Please correlate with speech pathologist findings and specific feeding recommendations. Labs Labs: Laboratory Results - last 24 hr 02/14/25 02/14/25 02/14/25 04:13 04:14 08:04 WBC 18.4 H RBC 2.96 L Hgb 9.3 L Hct 28.8 L MCV 97.3 MCH 31.4 MCHC 32.3 RDW 17.4 H Plt Count 231 MPV 9.2 Immature Gran % (Auto) 6.9 H Neut % (Auto) 75.7 H Lymph % (Auto) 10.4 L [place] % (Auto) 6.1 Eos % (Auto) 0.5 Baso % (Auto) 0.4 Lymph # (Auto) 1.91 [place] # (Auto) 1.1 H Eos # (Auto) 0.1 Baso # (Auto) 0.1 Abs Immat Gran (auto) 1.28 H Absolute Neuts (auto) 14.0 H Absolute Nucleated RBC 0.020 H Band Neutrophils % 0 Nucleated RBC % 0.1 Platelet Estimate Adequate Poikilocytosis 1+ Sushma Cells 1+ Schistocytes None seen Sodium 138 Potassium 3.5 Chloride 106 Carbon Dioxide 23 Anion Gap 9 BUN 26 H Creatinine 1.68 H Estim Creat Clear Calc 35 Estimated GFR 30 L Glucose 98 Calcium 8.3 L Vancomycin Trough 21.6 H Quality VTE Prophylaxis VTE prophylaxis: mechanical ordered and pharmacologic ordered
[2025-02-14] MEDS: SODIUM CHLORIDE 0.9% IV 250 ML IV CONT (17:03)
--- NOTE | 2025-02-14 21:18 | PC.NURSE ---
Pt spit crushed meds back at this nurse. Unable to determine how much medication she receieved vs. spit out. Pt verbally aggressive, however not physically aggressive at this time.
[2025-02-15] VITALS (21 sets, daily range): BP systolic 100–123; BP diastolic 45–58; PULSE 66–97; RESP 16–21; TEMP 36.7–37.3; O2SAT 92–97
[2025-02-15] MEDS: CEFEPIME 2 GM/NS 50 ML 2 GM/50 ML BAG IVPB ×2 (05:04→16:08)
--- NOTE | 2025-02-15 09:23 | P.PNPL_ITS ---
Progress Note: A&P Assessment and Plan (1) Acute hypoxemic respiratory failure: Code(s): J96.01 - Acute respiratory failure with hypoxia Status: Acute Assessment and Plan: Patient is post recent 6 minute walk on 07/09/2023 without hypoxemia at rest or with activity. She tells me she does not use oxygen at rest or with activity at [facility]. She does wear 5 L bleed in at night with her BiPAP 07/08 which she tells me she rarely uses. Patient smokes cigarettes from age [age] at 1 pack per day, quit 40 years ago, PFTs with a restrictive abnormality and no obstructive abnormality. she presented with altered mental status and was on room air while being treated for UTI and acute kidney injury. She also had Staph bacteremia. On 02/12/2025 patient developed shortness of breath and increasing oxygen requirements up to 2 L and then 4 L and then Airvo which she could not tolerate. This was associated with a weight gain from 97.8 kilos on admission to 108.8 kg today, BMP on 02/12 was 28,200 and a chest x-ray showed cardiomegaly with mid and lower lung field infiltrates consistent with congestion or fluid overload. Patient received Lasix 40 on 02/12 in the evening. ABG on 4 L 7.45/32/57. There is no evidence of hypercarbic respiratory failure 02/13/2025: Patient placed on Vapotherm but she was screaming combative because this was burning her nose. she was placed on 4 L nasal cannula saturations 97%. Currently the patient tells me she is breathing worse than her usual. She says she has a cough that is provoked by swallowing pills. She has no chest pain. Denies fever, phlegm production or hemoptysis. White blood cell count 18.3, creatinine 1.33. When I enter the room she was on 3 L nasal cannula saturations 94%. I decreased her to 2 L nasal cannula her saturations were 91%. I spoke to the hospitalist the patient looks much improved today compared to yesterday. Plan: Agree with as aggressive diuresis as tolerated per hospitalist and timekeeping supervisor teams. I repeated a BNP today. The patient may or may not have a healthcare associated pneumonia and at this time would continue vancomycin (started 02/09, day 5) for her known MRSA bacteremia and cefepime, day 2. I will send a procalcitonin today and a CRP. I will send urine for Legionella, urine for pneumococcal antigen, serum mycoplasma IgM and respiratory pathogen panel looking for additional sources of infection. Patient says the levalbuterol is helping her. She does have end expiratory wheezes now which may be related to fluid overload. Will continue levalbuterol. Procalcitonin 0.8, BNP greater than 30,000, CRP 19.3. patient tells me she has difficulty swallowing and chokes on her pills. I will order modified barium swallow. goal saturation 90-94%. Wean oxygen accordingly. 02/14/2025: Patient tells me she has improved. She is less tachypneic today. She says she is breathing 50% back to her normal. She has a cough with no phlegm or hemoptysis. She is afebrile. White blood cell count 8.4, creatinine 1.68. When I enter the room she was on 1.5 L nasal cannula saturations 96%. I placed her on room air and after 12 minutes her saturations were 90-92%. Plan: Patient has improved with diuresis and treatment for possible healthcare associated pneumonia. Her creatinine is increased to 1.68 and diuretics will be adjusted per hospitalist team. Continue vancomycin, day 6 and cefepime, day 3. oxygenation has continued to improve. Later in the day, she had a modified barium swallow and was not perfectly compliant with the directions with Penetration but no aspiration with recommendation for minced moist food and mild thickened liquids. 02/15/2025: patient tells me she is breathing better. She has minimal cough and phlegm production. She fights with the staff at times. currently the patient was on 3 L nasal cannula saturations 96%. I decreased her to 1 L and her saturations were 92%. Patient remains on 40 IV Lasix b.i.d.. Cumulative since admission she is positive 9.9 L. Her weight is 107 kg today. Plan: Oxygenation has improved with diuresis and possible healthcare associated pneumonia treatment. Currently on vancomycin day 7 and cefepime day 4. She had MRSA bacteremia. From a pulmonary perspective patient has been adequately treated with vancomycin, would complete 7 days of cefepime. From a pulmonary perspective patient can be discharged on these pulmonary medications albuterol 2 puffs q.4 hours p.r.n. shortness of breath or wheezing Oxygen at rest and with activity per formal home O2 assessment on the day of discharge. Oxygen at night 3 L. diuretics per hospitalist team, currently she is on 40 IV Lasix b.i.d. follow-up in the Pulmonary Clinic on her previously scheduled appointment on 02/27/2025 at 1:[address] Greenfield, will sign off, call with questions. (2) SIMEON treated with BiPAP: Code(s): G47.33 - Obstructive sleep apnea (adult) (pediatric) Status: Acute Assessment and Plan: Most recent download 08/09/2024 through 09/07/2024. Patient is on BiPAP 16 Spontaneous mode with no set rate. Usage days greater than or equal to 4 hours is 0%. Average usage on days used is 2 hours and 18 minutes. AHI 1.0, apnea index 0.6, hypopnea index 0.4, central apnea index 0.1. Median leak 1.9, 95th percentile leak 17.8, maximum leak 51.5. Median tidal volume 271. Median respiratory rate 21. Median minute ventilation 5.8. Currently patient tells me she is rarely uses her BiPAP because is uncomfortable. Plan: Patient tells me she will attempt to wear hospital BiPAP RR 14 and 16 with 40%. I will attempt to obtain more recent download. Later in the day I obtain download that was updated through 12 days ago and there has been no use since August 2024. 02/14/25: Patient refused to wear the hospital BiPAP. She tells me she will not wear BiPAP in the future. Plan: Patient will not wear BiPAP in the future and I will attempt to correct patient's hypoxemia at night and will perform an overnight oximetry on 3 L nasal cannula. 02/15/2025: Patient had an overnight oximetry on 3 L with recording duration of 7 hours and 55 minutes, average saturation 97%. Low saturation 87%. Time with saturation less than or equal to 88% was 2 minutes, oxygen desaturation index 10.4. plan: 3 L provides adequate saturation when she naps or sleeps. When patient naps or sleeps 3 L nasal cannula. Plan Subjective Date/time seen: 02/15/25 09:23 Interval history: 02/13/2025: This is a new pulmonary consult for hypoxemic respiratory failure. 69-year-old with a history of obstructive sleep apnea on BiPAP, bipolar, hypertension, brain tumor, CKD, patient is followed in the Pulmonary Clinic in last seen on 09/12/2024: This is a copy of the note. Sleep: She is on BiPAP now. She was previously on CPAP [id number] up until PAP titration in January 2022. She was prescribed initially BiPAP [id number] with 4L O2. She called the office stating the pressure was too high. BiPAP pressure was lowered to BiPAP [id number] with 4L/min O2 and overnight oximetry on the lower pressure with 4L/min O2 showed 150min at or below 88% saturation, basal SpO2 89%, so we had to increase her pressure again back to BiPAP 20/16. In April 2023 we received a note from [place] at [facility] [place] stating she could not tolerate the BiPAP pressures. We went through the raw data of her last PAP titration and lowered her BiPAP settings to 16/12cm based on that data, to keep 5L/min O2 bleed in. Today she tells me overall she's doing OK with BiPAP. Still having dry mouth despite changing from nasal pillows to half-face mask but doing better on this. She's using BiPAP with 5L/min O2 bleed in. Nocturia 1x per night. Denies morning headaches. She continues to have a very fragmented sleep schedule. She goes to bed and wakes up after 3 to 4 hours sometimes goes out to her recliner and watches TV, usually 1 or 2am. She often falls back asleep in the recliner but states some nights she doesn't and she's awake until morning. She sleeps in multiple naps pretty much throughout the entire day, some naps lasting 30 minutes and other naps lasting 2 hours or more - (once in the morning and then another > 1 hr nap around 3 or 4pm until Ed gets home from work around 5:30pm). She feels tired throughout the day, sedentary and not much activity. SOB: Today states overall her PINEDA is stable. Working on losing weight, down about 10 lb since last visit 6 months ago. Denies coughing or wheezing. Occasional sputum stuck in throat. Denies sinus drainage. TOBACCO:? Former smoker, quit in 2018. Started smoking at age 21, most of the time smoked 1 pack per day x 40 years, 40 pack years. Plan: * Download 08/09/24 - 09/07/24 shows BiPAP used 60% of nights for avg usage 2h18m per night. Her usage is declined since last visit. Overall AHI is 1.0. Air leaks improved. * She is doing better with a half face mask. Will recommend chin strap. * Regarding her shortness of breath. She has a moderate restrictive abnormality with no obstruction. Encouraged to increase activity and lose weight. * Regarding her tobacco use. Low-dose CT scan November 2024. 12/05/2024: Low-dose CT scan with Lung rads 2, recommend repeat in 12 months. 12/20/2024 through 12/25/2024: Admitted to [facility] from the [facility] facility with weakness and treated for UTI. 02/07/2025: Patient status post fall seen in the emergency department 02/07/2025: patient seen in [place] ED for altered [facility] status [facility] the jail. Patient is having diarrhea. Recently admitted to the jail and no known baseline. Blood pressure 111/54, room air saturations 99%. Respirations 18, heart rate 71. White blood cell count 15.4, creatinine 3.63, potassium less than 2.0 UA 2+ leukocyte esterase, 11-20 white blood cells no bacteria C diff negative. patient with a history of a plane. And transferred to [facility] and then discharged to rehab and then sent to a jail due to not progressing in rehab. She has been wheelchair-bound. Last couple of days she has been more withdrawn. CT of the head negative. Treated for a UTI with ceftriaxone. 02/09 alert an oriented to self and place. Blood cultures Gram-positive cocci antibody is were changed to Rocephin, vancomycin Flagyl. Room air saturations 95% 02/10 Oriented to her name only. Denies shortness of breath. White blood cells 17.1, creatinine 1.75. Blood cultures positive for MRSA. Continue vancomycin, will get echo. Room air saturation 96%. 02/11/2025: Room air saturation 94% at 22:00. white blood cell count 17.4. Creatinine 1.53. Rocephin discontinued. 02/12/2025. She is and more awake oriented today. Denies shortness of breath. Echo pending. at 02:30 2 L nasal cannula saturation 94%. cardiomegaly with pulmonary edema. Left basilar atelectasis versus pneumonia. White blood cell count 19.2, creatinine 1.27. Flagyl discontinued. 02/12 at 2250: at 15:00 increased to 4 L sats 92. 40 of Lasix IV given. Cross coverage note. increasing respiratory distress. Respirations mid 30s, desats on 2 L and placed on 4 L. Noted to be wheezing and have coarse crackles bilaterally. Troponin elevated 0.287. Previously started on IV heparin drip but this was stopped due to recent intracranial bleed. Concern for HCAP. Patient consistently gagging and not a candidate for BiPAP. ABG on 4 L 7.45/32/57. 02/13/2025: Patient placed on Vapotherm but she was screaming combative because this was burning her nose. she was placed on 4 L nasal cannula saturations 97%. Currently the patient tells me she is breathing worse than her usual. She says she has a cough that is provoked by swallowing pills. She has no chest pain. Denies fever, phlegm production or hemoptysis. White blood cell count 18.3, creatinine 1.33. When I enter the room she was on 3 L nasal cannula saturations 94%. I decreased her to 2 L nasal cannula her saturations were 91%. Later in the day I obtain download that was updated through 12 days ago and there has been no use since August 2024. 02/14/2025: Patient tells me she has improved. She is less tachypneic today. She says she is breathing 50% back to her normal. She has a cough with no phlegm or hemoptysis. She is afebrile. White blood cell count 8.4, cr eatinine 1.68. When I enter the room she was on 1.5 L nasal cannula saturations 96%. I placed her on room air and after 12 minutes her saturations were 90- 92%. Patient refused to wear the hospital BiPAP. She tells me she will not wear BiPAP in the future. later in the day, she had a modified barium swallow and was not perfectly compliant with the directions with Penetration but no aspiration with recommendation for minced moist food and mild thickened liquids. 02/15/2025: patient tells me she is breathing better. She has minimal cough and phlegm production. She fights with the staff at times. currently the patient was on 3 L nasal cannula saturations 96%. I decreased her to 1 L and her saturations were 92%. Patient had an overnight oximetry on 3 L with recording duration of 7 hours and 55 minutes, average saturation 97%. Low saturation 87%. Time with saturation less than or equal to 88% was 2 minutes, oxygen desaturation index 10.4. Patient remains on 40 IV Lasix b.i.d.. Cumulative since admission she is positive 9.9 L. Her weight is 107 kg today. DATA: * 03/22/24 - Overnight oximetry on BiPAP 16/12cm with 5L bleed in - Recorded 2h11m. Time spent at or below 88% saturation was zero minutes. Lowest SpO2 89% with basal Spo2 92.9%. Despite low recording time these results are improved and we recommended to continue BiPAP with 5L. * 03/19/24 - Overnight oximetry on BiPAP 16/12cm with 4L bleed in - Recorded 3h51m. Time spent at or below 88% oxygen saturation was 1h8m. Lowest SpO2 85%. Advised patient to increase to BiPAP with 5L bleed in. * 03/23/24 - PFT - There is a mild restrictive ventilatory abnormality with a normal FEV1. The spirometry is normal without evidence of an obstructive abnormality. There is no significant improvement after inhaling a single dose of albuterol. The diffusing capacity unadjusted for hemoglobin and carboxyhemoglobin is mildly decreased and normalizes when adjusted for alveolar volume. In comparison to previous pulmonary function testing on 03/19/2021 there has been a greater than anticipated time dependent decrease in the diffusing capacity adjusted for alveolar volume with no significant change in the FVC, FEV1, total lung capacity, functional residual capacity, residual volume, or diffusing capacity unadjusted for hemoglobin and carboxyhemoglobin. * 12/06/23 - LDCT - 3 mm kiana-fissural nodule noted in the right lung (axial image 57). Images through the upper abdomen reveal 1.9 cm left adrenal nodule. There is evidence of prior bariatric surgery. * 07/09/23 - 6mw - Normal, she did not require supplemental oxygen at rest or with ambulation. * 12/02/22 - LDCT - Stable 3mm fissural nodule on the right. There is a 3mm left fissural nodule on the left. No endobronchial lesions. No focal airspace consolidation. No new pulmonary nodules or masses. * 03/19/21 PFT - PFT 03/19/21 - There is a moderate restrictive ventilatory abnormality. The spirometry is normal without evidence of an obstructive abnormality. There is no significant improvement after inhaling a single dose of albuterol. The absolute diffusing capacity is mildly decreased and normalizes when corrected for alveolar volume. FEV1 65% of predicted, FEV1/FVC ratio is 79%. * 12/05/2020? nocturnal oximetry on CPAP 12 cm and 4 L/min =? lowest saturation 75%, 6.3 minutes below 88%.? Average oxygen desaturation event is 22. This indicates that she?needs a repeat sleep study. * 10/23/2020? nocturnal oximetry on CPAP 12 and 3 L/ minute,? lowest saturation 73% 1 hour 13 minutes spent below 88%, 16.9% of the study average saturation 90%.?After this study she was called and told to increase night time O2 to 4 L/min * Chest CT 11/11/2020 Lung-RADS category 2, benign appearance or behavior (<1% chance of malignancy); recommend continued LDCT screening in 1 year. 3 mm nodule along each major fissure; several regions of bilateral linear scarring; mild emphysema. Previously seen pneumonia has resolved.? * PFT 03/15/2020 at [place] showed FEV1 90%, normal FEV1%, TLC 81%, mild air trapping RV/TLC 41%, DLCO 56%. DDx includes ILD, pneumonitis; anemia and pulmonary hypertension need to be excluded. * Echo 02/05/2020 LV systolic function normal, estimated at 65-70%. Grade I diastolic dysfunction. Mild aortic stenosis. Unable to estimate PA systolic pressure due to limited views, technically difficult study. Review of Systems Constitutional: Constitutional: Reports no additional constitutional complaints Eyes: Eyes: Reports no additional eye complaints ENT: Reports system reviewed and no additional complaints, except as documented Cardiovascular: Cardiovascular: Reports no additional cardiovascular complaints Respiratory: Respiratory: Reports no additional respiratory complaints Gastrointestinal: Gastrointestinal: Reports no additional gastrointestinal complaints Musculoskeletal: Musculoskeletal: Reports no additional musculoskeletal complaints Neurologic: Reports system reviewed and no additional complaints, except as documented Psychiatric: Psychiatric: Reports no additional psychiatric complaints Endocrine: Endocrine: Reports no additional endocrine complaints Hematologic/Lymphatic: Hematologic/Lymphatic: Reports no additional hematologic/lymphatic complaints Allergic/Immunologic: Allergic/Immunologic: Reports no additional allergic/immunologic complaints Exam Const: General: cooperative and in distress Orientation/consciousness: oriented to person, oriented to place and oriented to time Other: Obese, HENMT: Head: normal to inspection Ears: hearing grossly normal bilaterally Eyes: General: appearance normal, both eyes and all related structures Neck: Neck: normal visual inspection Chest: Chest palpation & inspection: normal inspection of the chest Resp: Effort & Inspection: normal respiratory effort and able to speak in complete sentences Auscultation: crackles, no rales, no rhonchi, no wheezes and lung sounds not diminished Other: crackles throughout Cardio: Jugular venous distension: no JVD GI: Inspection: normal to inspection Skin: General skin exam: normal color Neuro: General: oriented to person, oriented to place and oriented to time Extrem: General: normal to inspection and edema Psych: Appearance: grossly normal Objective Data Vital Signs Vital Signs: Vital Signs - 24 hr 02/14/25 10:00 02/14/25 11:50 02/14/25 12:30 Temperature 36.4 C Pulse Rate 65 71 Respiratory Rate 18 16 Blood Pressure 105/50 L Pulse Oximetry 96 95 Oxygen Delivery Nasal Cannula Oxygen Flow Rate 1 02/14/25 12:30 02/14/25 13:14 02/14/25 13:21 Temperature Pulse Rate 80 67 65 Respiratory Rate 16 16 Blood Pressure Pulse Oximetry Oxygen Delivery Oxygen Flow Rate 02/14/25 14:00 02/14/25 16:00 02/14/25 16:35 Temperature 36.4 C Pulse Rate 69 73 Respiratory Rate 22 H 22 H Blood Pressure 121/55 L Pulse Oximetry 97 91 Oxygen Delivery Nasal Cannula Oxygen Flow Rate 1 02/14/25 16:35 02/14/25 18:00 02/14/25 20:00 Temperature Pulse Rate 73 82 82 Respiratory Rate Blood Pressure Pulse Oximetry Oxygen Delivery Oxygen Flow Rate 02/14/25 20:00 02/14/25 20:18 02/14/25 20:44 Temperature 36.6 C Pulse Rate 85 84 Respiratory Rate 20 20 Blood Pressure 125/46 L Pulse Oximetry 92 92 Oxygen Delivery Nasal Cannula Oxygen Flow Rate 1 02/14/25 22:00 02/14/25 23:46 02/15/25 00:00 Temperature Pulse Rate 101 H 81 86 Respiratory Rate Blood Pressure Pulse Oximetry 94 Oxygen Delivery Nasal Cannula Oxygen Flow Rate 1 02/15/25 00:13 02/15/25 01:05 02/15/25 01:16 Temperature 36.7 C Pulse Rate 84 83 85 Respiratory Rate 21 H 20 20 Blood Pressure 109/57 L Pulse Oximetry 97 Oxygen Delivery Oxygen Flow Rate 02/15/25 02:00 02/15/25 03:58 02/15/25 04:00 Temperature Pulse Rate 90 66 Respiratory Rate Blood Pressure Pulse Oximetry 97 Oxygen Delivery Nasal Cannula Oxygen Flow Rate 1 02/15/25 05:33 02/15/25 06:00 02/15/25 07:37 Temperature 36.8 C Pulse Rate 81 83 Respiratory Rate 20 Blood Pressure 100/56 L Pulse Oximetry 95 96 Oxygen Delivery Nasal Cannula Oxygen Flow Rate 3 02/15/25 07:37 02/15/25 07:44 02/15/25 08:00 Temperature 36.8 C Pulse Rate 81 84 83 Respiratory Rate 20 20 18 Blood Pressure 115/45 L Pulse Oximetry 96 Oxygen Delivery Oxygen Flow Rate Intake/Output Intake/Output: Intake & Output 02/12/25 02/13/25 02/14/25 02/15/25 23:59 23:59 23:59 23:59 Intake Total 2160 870.0 810 0 Output Total 450 250 150 Balance 2160 420.0 560 -150 Meds/Results Medications: Active Medications Generic Name Dose Route Start Last Admin Trade Name Freq PRN Reason Stop Dose Admin Acetaminophen 650 mg 02/07/25 15:41 02/07/25 20:34 Acetaminophen 325 Mg Tablet PO 650 mg Q4H PRN Administration Mild Pain (1-3) or Fever Hydrocodone Bitart/Acetaminophen 1 tab 02/07/25 15:41 02/12/25 03:11 Hydrocodone/Acetaminophen (*Crx) 5-325 Mg Tablet PO 1 tab Q4H PRN Administration Pain Rated 4-6 Artificial Tears 1 drop 02/08/25 09:32 Artificial Tears Ophth Soln 15 Ml Bottle EACH EYE 03/10/25 09:31 PRN PRN dry eye(s) Carvedilol 18.75 mg 02/08/25 09:00 02/14/25 20:55 Carvedilol 6.25 Mg Tablet PO 18.75 mg Q12HR CARLIN Administration Duloxetine HCl 60 mg 02/08/25 09:00 02/14/25 20:55 Duloxetine Hcl 60 Mg Capsule.Dr PO 60 mg Q12HR CARLIN Administration Furosemide 40 mg 02/13/25 10:30 02/13/25 20:36 Furosemide Inj 40 Mg/4 Ml Vial IV PUSH 40 mg Q12HR CARLIN Administration Heparin Sodium (Porcine) 5,000 units 02/13/25 14:00 02/15/25 05:05 Heparin Sodium 5,000 Units/Ml Vial SUB-Q 5,000 units Q8HR CARLIN Administration Cefepime HCl 2 gm in 50 mls @ 100 mls/hr 02/13/25 04:00 02/15/25 05:04 Maxipime 2 Gm/Ns 50 Ml IVPB 100 mls/hr Q12H CARLIN Administration Vancomycin HCl 750 mg in 250 mls @ 250 mls/hr 02/15/25 09:00 Vancomycin 750 Mg/Ns 250 Ml IVPB Q24H CARLIN Lamotrigine 200 mg 02/08/25 09:00 02/14/25 20:55 Lamotrigine 100 Mg Tablet PO 200 mg Q12HR CARLIN Administration Levalbuterol HCl 1.25 mg 02/11/25 20:00 02/15/25 07:34 Levalbuterol Neb 1.25 Mg/3 Ml INHALATION 1.25 mg Q6HRT CARLIN Administration Loperamide HCl 2 mg 02/07/25 18:18 02/12/25 14:35 Loperamide Hcl 2 Mg Capsule PO 2 mg PRN PRN Administration Diarrhea Lorazepam 1 mg 02/09/25 15:15 02/14/25 20:46 Lorazepam (*Crx) 1 Mg Tablet PO 1 mg Q8H PRN Administration Anxiety Ondansetron HCl 4 mg 02/07/25 15:41 02/13/25 12:53 Ondansetron Inj 4 Mg/2 Ml Vial IV PUSH 4 mg Q4H PRN Administration Nausea Sertraline HCl 100 mg 02/08/25 09:00 02/14/25 08:23 Sertraline Hcl 50 Mg Tablet PO 100 mg DAILY CARLIN Administration Radiology Results: ITS Impressions Head CT 02/07/25 18:39 Impression: No acute intracranial hemorrhage or suspicious mass effect. Renal Ultrasound 02/08/25 19:23 IMPRESSION: No hydronephrosis or renal calculi. Parenchyma of the bilateral kidneys are unremarkable. Chest X-Ray 02/12/25 16:28 IMPRESSION: Bilateral pneumonia. Underlying pulmonary edema cannot be excluded Modified Barium Swallow 02/14/25 11:22 IMPRESSION: Mild pharyngeal dysphagia with laryngeal penetration without aspiration. Please correlate with speech pathologist findings and specific feeding recommendations.
[2025-02-15 09:43] LABS: Hematocrit 27.8 % (37.0-47.0); Hemoglobin 9.2 g/dL (12.0-15.0); Mean Corpuscular HGB Conc 33.1 g/dl (32-36); Mean Corpuscular Hemoglobin 31.5 pg (26-34); Mean Corpuscular Volume 95.2 fl (80-100); Platelet Count Result 283 k/mm3 (150-375); Red Blood Count 2.92 M/mm3 (4.2-5.4); White Blood Count 16.8 K/mm3 (4.5-10.0)
[2025-02-15 10:03] LABS: Anion Gap 8 mmol/L (4-12); Blood Urea Nitrogen 30 mg/dL (7-17); Calcium 8.4 mg/dL (8.4-10.2); Carbon Dioxide 21 mmol/L (22-30); Chloride 106 mmol/L (98-107); Estimated CRCL calculation 30 ml/min; Estimated Glomerular Filt Rate 25; Glucose 85 mg/dL (65-110); Potassium 3.1 mmol/L (3.4-5.0); Sodium 135 mmol/L (137-145)
[2025-02-15 10:28] LABS: Band Neutrophils Percent 2 % (0-6); Lymphocytes Absolute Manual 0.84 K/mm3 (1.1-4.5); Lymphocytes Percent Manual 5 % (18-44); Monocytes Absolute Manual 0.50 K/mm3 (0.1-0.90); Monocytes Percent Manual 3 % (3-9); Neutrophils Absolute Manual 15.45 K/mm3 (1.3-6.7); Neutrophils Percent Manual 90 % (46-73); Total Cells Counted 100
[2025-02-15 10:29] LABS: Anisocytosis 1+
[2025-02-15 10:31] LABS: Schistocytes None Seen
[2025-02-15] MEDS: DULoxetine HCL 60 MG CAPSULE.DR PO (10:49)
[2025-02-15] MEDS: LORazepam (*CRX) 1 MG TABLET PO (10:49)
[2025-02-15] MEDS: SERTRALINE HCL 50 MG TABLET 100 MG PO (10:49)
[2025-02-15] MEDS: VANCOMYCIN 750 MG/NS 250 ML 750 MG/250 ML BAG 250 MG IVPB (11:00)
--- NOTE | 2025-02-15 16:04 | P.PNIM_ITS ---
Progress Note: A&P Assessment and Plan (1) Altered mental status: Code(s): R41.82 - Altered mental status, unspecified Status: Acute Assessment and Plan: Infection verses stroke versus electrolyte imbalance versus other CT head no acute findings Replete electrolytes as needed IV antibiotics for infection. vancomycin, and cefepime Blood culture positive for MRSA. Continue vancomycin TTE neg for endocarditis. per cardiology if repeat B/C neg no need for QI Repeat blood culture since 02/09/2025 has been negative Follow-up blood culture results Holding sedated of medications until more alert PT/OT/ST (2) JERRY (acute kidney injury): Code(s): N17.9 - Acute kidney failure, unspecified Status: Acute Assessment and Plan: IV fluids for hydration worsening lasix on hold Repeat BMP US renal unremarkable (3) Acute hypokalemia: Code(s): E87.6 - Hypokalemia Status: Acute Assessment and Plan: replaced, continue monitoring (4) UTI (urinary tract infection): Qualifiers: Urinary tract infection type: acute cystitis Hematuria presence: without hematuria Qualified Code(s): N30.00 - Acute cystitis without hematuria Code(s): N39.0 - Urinary tract infection, site not specified Status: Acute Assessment and Plan: Could be causing altered mental status received rocephin (5) Diarrhea: Code(s): R19.7 - Diarrhea, unspecified Status: Acute Assessment and Plan: Likely cause of acute dehydration and hypokalemia Negative for C diff Imodium (6) Bipolar disorder: Qualifiers: Active/Remission status: in remission of unspecified degree Qualified C ode(s): F31.70 - Bipolar disorder, currently in remission, most recent episode unspecified Code(s): F31.9 - Bipolar disorder, unspecified Status: Acute Assessment and Plan: Patient will need to be restarted on Lamictal when she can swallow (7) HTN (hypertension): Qualifiers: Hypertension type: essential hypertension Qualified Code(s): I10 - Essential (primary) hypertension Code(s): I10 - Essential (primary) hypertension Status: Chronic Assessment and Plan: lasix dc due to JERRY (8) Diastolic dysfunction: Code(s): I51.89 - Other ill-defined heart diseases Status: Acute Assessment and Plan: Acute on chronic HFpEF dc lasix with JERRY cardiology team on board (9) Obstructive sleep apnea on CPAP: Code(s): G47.33 - Obstructive sleep apnea (adult) (pediatric); Z99.89 - Dependence on other enabling machines and devices Status: Acute Assessment and Plan: Does not appear to be on home CPAP (10) Sepsis: Code(s): A41.9 - Sepsis, unspecified organism Status: Acute Assessment and Plan: possible pneumonia vs UTI IV antibiotics for infection. received Rocephin, vancomycin, Flagyl. continue vancomycin cefepime for possible pneumonia Blood culture positive for mRSA Follow-up blood culture results TTE neg for endocarditis pulmonary team on board (11) NSTEMI (non-ST elevated myocardial infarction): Code(s): I21.4 - Non-ST elevation (NSTEMI) myocardial infarction Status: Acute Assessment and Plan: likely demand ischemia monitor for now Cardiology team on board Plan DVT prophylaxis on Sq Heparin Subjective Date/time seen: 02/15/25 16:04 Interval history: per HPI: 69-year-old female history of bipolar 1, hypertension, brain tumor, iron deficiency anemia, CKD and SIMEON presents to the hospital with altered mental status from a shelter. HPI is limited due to altered mental status. Per the the patient had a fall was found to have a brain bleed and was transferred to [facility] and then discharged to rehab and then sent to a shelter due to not progressing in rehab. She has been wheelchair- bound. He states that over the last couple days she became more and more withdrawn. He is unaware of her having another fall Lab work in the ED shows leukocytosis at 15.4, hemoglobin of 11.9, sodium of 133, potassium a less than 2, creatinine of 3.36 baseline being 1, GFR 12, AST 57 ALT 46, UA with 2+ leukocyte esterase moderate squamous cells negative nitrat es and yeast, and C diff is negative 02/09/25 Patient was seen and examined at [facility]. She is alert oriented to herself and place. Denies any chest pain, shortness of breath, abd pain, N/V. Blood culture positive for Gram-positive cocci in cluster. Antibiotics were changed to Rocephin, vancomycin and Flagyl. Discussed with pharmacy team. Repeat blood culture was ordered. Renal ultrasound unremarkable 02/10/25 Patient was seen examined with. She is oriented to her name only. Denies any chest pain, shortness of breath, abdominal pain, nausea vomiting WBC improved to 17.1. Potassium 3.3. Creatinine improved to 1.75 Blood culture positive for MRSA. Will get echo. Continue with vancomycin 02/11/25 Patient was seen and examined at bedside. She is alert oriented to her name and place denies any chest pain, shortness off breath, abdominal pain, nausea vomiting. No acute event overnight. Kidney function improving. WBC 17.4. Echo pending. Repeat blood culture since 02/09/2025 has been negative 02/12/25 Patient was seen examined at bedside. She isn't more awake oriented today. Denies any chest pain, shortness to stop breath, abdominal pain, nausea vomiting. Continue with vancomycin. Echo pending. 02/13/25 Patient was seen examined at bedside. She is more alert oriented today. She is on 2 L oxygen. Pulmonary and cardiology team on board. Plan for modified barium swallow. Continue with Lasix continue with vancomycin and cefepime. TTE negative for vegetation. per cardiology we need to repeat B/C and then decide 02/14/25 Patient was seen and examined at bedside. She is alert oriented to her name and place denies any chest pain, shortness off breath, abdominal pain, nausea vomiting. No acute event overnight. patient has worsening kidney function will dc lasix. her breathing improving and sat is 94% on 1 lit O2 02/15/25 Patient was seen and examined at bedside. she is confused today. denies any chest pain,SOB,abd pain, nausea vomiting. O2 sat has been stable at night on 3 lit o2. continue cefepime and vancomycin. Review of Systems Review of Systems: 12 systems were reviewed and are negativ e except for as per HPI. ROS unobtainable: Yes unobtainable due to mental status Exam Narrative: General: Chronically ill, appears older than stated age HEENT: normocephalic, atraumatic. Mucous membranes moist. EOMI, PERRLA, bilateral sclera anicteric, no conjunctival injection. Neck supple without JVD, lymphadenopathy, or bruit. Respiratory: crackles to ascultation bilaterally. s. Cardiovascular: Regular rate and rhythm, normal S1-S2 upon ascultation. No murmurs, rubs, or clicks. PMI is nondisplaced, capillary refill less than 3 second. Abdomen: Soft, round, no pulsatile masses, nondistended and nontender. No rebound, no guarding. No CVA tenderness, no hepatosplenomegaly. Bowel sounds present to all four quadrants. No high pitch or tinkling sounds, resonant to percussion. Extremities: No cyanosis, clubbing, Pulses are palpable 2/2. Patient has trouble following commands. 4+ lower extremity edema Neuro: Alert and orientated x 2. PERRLA. Cranial nerves 2-12 intact without focal deficit. Skin: Warm, dry, and intact, without rash, erythema, or lesion. Psych: Unable to assess Objective Data Vital Signs Vital Signs: Vital Signs - 24 hr 02/14/25 16:35 02/14/25 16:35 02/14/25 18:00 Temperature Pulse Rate 73 82 Respiratory Rate 22 H Blood Pressure Pulse Oximetry 91 Oxygen Delivery Nasal Cannula Oxygen Flow Rate 1 02/14/25 20:00 02/14/25 20:00 02/14/25 20:18 Temperature 97.8 F Pulse Rate 82 85 Respiratory Rate 20 Blood Pressure 125/46 L Pulse Oximetry 92 92 Oxygen Delivery Nasal Cannula Oxygen Flow Rate 1 02/14/25 20:44 02/14/25 22:00 02/14/25 23:46 Temperature Pulse Rate 84 101 H 81 Respiratory Rate 20 Blood Pressure Pulse Oximetry 94 Oxygen Delivery Nasal Cannula Oxygen Flow Rate 1 02/15/25 00:00 02/15/25 00:13 02/15/25 01:05 Temperature 98.1 F Pulse Rate 86 84 83 Respiratory Rate 21 H 20 Blood Pressure 109/57 L Pulse Oximetry 97 Oxygen Delivery Oxygen Flow Rate 02/15/25 01:16 02/15/25 02:00 02/15/25 03:58 Temperature Pulse Rate 85 90 Respiratory Rate 20 Blood Pressure Pulse Oximetry 97 Oxygen Delivery Nasal Cannula Oxygen Flow Rate 1 02/15/25 04:00 02/15/25 05:33 02/15/25 06:00 Temperature 98.2 F Pulse Rate 66 81 83 Respiratory Rate 20 Blood Pressure 100/56 L Pulse Oximetry 95 Oxygen Delivery Oxygen Flow Rate 02/15/25 07:37 02/15/25 07:37 02/15/25 07:44 Temperature Pulse Rate 81 84 Respiratory Rate 20 20 Blood Pressure Pulse Oximetry 96 Oxygen Delivery Nasal Cannula Oxygen Flow Rate 3 02/15/25 08:00 02/15/25 08:00 02/15/25 08:00 Temperature 98.3 F Pulse Rate 83 84 Respiratory Rate 18 Blood Pressure 115/45 L Pulse Oximetry 96 97 Oxygen Delivery Nasal Cannula Oxygen Flow Rate 1 02/15/25 10:00 02/15/25 12:00 02/15/25 12:00 Temperature 98.2 F Pulse Rate 82 89 83 Respiratory Rate 20 Blood Pressure 123/58 L Pulse Oximetry 96 Oxygen Delivery Oxygen Flow Rate 02/15/25 14:01 02/15/25 14:10 Temperature Pulse Rate 88 84 Respiratory Rate 20 20 Blood Pressure Pulse Oximetry Oxygen Delivery Oxygen Flow Rate Intake/Output Intake/Output: Intake & Output 02/12/25 02/13/25 02/14/25 02/15/25 23:59 23:59 23:59 23:59 Intake Total 2160 870.0 810 0 Output Total 450 250 150 Balance 2160 420.0 560 -150 Meds/Results Medications: Active Medications Generic Name Dose Route Start Last Admin Trade Name Freq PRN Reason Stop Dose Admin Acetaminophen 650 mg 02/07/25 15:41 02/07/25 20:34 Acetaminophen 325 Mg Tablet PO 650 mg Q4H PRN Administration Mild Pain (1-3) or Fever Hydrocodone Bitart/Acetaminophen 1 tab 02/07/25 15:41 02/12/25 03:11 Hydrocodone/Acetaminophen (*Crx) 5-325 Mg Tablet PO 1 tab Q4H PRN Administration Pain Rated 4-6 Artificial Tears 1 drop 02/08/25 09:32 Artificial Tears Ophth Soln 15 Ml Bottle EACH EYE 03/10/25 09:31 PRN PRN dry eye(s) Carvedilol 18.75 mg 02/08/25 09:00 02/15/25 10:49 Carvedilol 6.25 Mg Tablet PO 18.75 mg Q12HR CARLIN Administration Duloxetine HCl 60 mg 02/08/25 09:00 02/15/25 10:49 Duloxetine Hcl 60 Mg Capsule.Dr PO 60 mg Q12HR CARLIN Administration Furosemide 40 mg 02/13/25 10:30 02/13/25 20:36 Furosemide Inj 40 Mg/4 Ml Vial IV PUSH 40 mg Q12HR CARLIN Administration Heparin Sodium (Porcine) 5,000 units 02/13/25 14:00 02/15/25 05:05 Heparin Sodium 5,000 Units/Ml Vial SUB-Q 5,000 units Q8HR CARLIN Administration Cefepime HCl 2 gm in 50 mls @ 100 mls/hr 02/13/25 04:00 02/15/25 05:04 Maxipime 2 Gm/Ns 50 Ml IVPB 100 mls/hr Q12H CARLIN Administration Vancomycin HCl 750 mg in 250 mls @ 250 mls/hr 02/15/25 09:00 02/15/25 11:00 Vancomycin 750 Mg/Ns 250 Ml IVPB 250 mls/hr Q24H CARLIN Administration Lamotrigine 200 mg 02/08/25 09:00 02/15/25 10:50 Lamotrigine 100 Mg Tablet PO 200 mg Q12HR CARLIN Administration Levalbuterol HCl 1.25 mg 02/11/25 20:00 02/15/25 14:01 Levalbuterol Neb 1.25 Mg/3 Ml INHALATION 1.25 mg Q6HRT CARLIN Administration Loperamide HCl 2 mg 02/07/25 18:18 02/12/25 14:35 Loperamide Hcl 2 Mg Capsule PO 2 mg PRN PRN Administration Diarrhea Lorazepam 1 mg 02/09/25 15:15 02/15/25 10:49 Lorazepam (*Crx) 1 Mg Tablet PO 1 mg Q8H PRN Administration Anxiety Ondansetron HCl 4 mg 02/07/25 15:41 02/13/25 12:53 Ondansetron Inj 4 Mg/2 Ml Vial IV PUSH 4 mg Q4H PRN Administration Nausea Sertraline HCl 100 mg 02/08/25 09:00 02/15/25 10:49 Sertraline Hcl 50 Mg Tablet PO 100 mg DAILY CARLIN Administration Radiology Results: ITS Impressions Head CT 02/07/25 18:39 Impression: No acute intracranial hemorrhage or suspicious mass effect. Renal Ultrasound 02/08/25 19:23 IMPRESSION: No hydronephrosis or renal calculi. Parenchyma of the bilateral kidneys are unremarkable. Chest X-Ray 02/12/25 16:28 IMPRESSION: Bilateral pneumonia. Underlying pulmonary edema cannot be excluded Modified Barium Swallow 02/14/25 11:22 IMPRESSION: Mild pharyngeal dysphagia with laryngeal penetration without aspiration. Please correlate with speech pathologist findings and specific feeding recommendations. Labs Labs: Laboratory Results - last 24 hr 02/15/25 09:35 WBC 16.8 H RBC 2.92 L Hgb 9.2 L Hct 27.8 L MCV 95.2 MCH 31.5 MCHC 33.1 RDW 17.6 H Plt Count 283 MPV 8.8 Immature Gran % (Auto) Not Reportable Neut % (Auto) Not Reportable Lymph % (Auto) Not Reportable Young % (Auto) Not Reportable Eos % (Auto) Not Reportable Baso % (Auto) Not Reportable Lymph # (Auto) Not Reportable Young # (Auto) Not Reportable Eos # (Auto) Not Reportable Baso # (Auto) Not Reportable Abs Immat Gran (auto) Not Reportable Absolute Neuts (auto) Not Reportable Absolute Nucleated RBC Not Reportable Total Counted 100 Neutrophils % (Manual) 90 H Band Neutrophils % 2 Lymphocytes % (Manual) 5 L Monocytes % (Manual) 3 Nucleated RBC % Not Reportable Abs Neuts (Manual) 15.45 H Abs Lymphs (Manual) 0.84 L Abs Monocytes (Manual) 0.50 Platelet Estimate Adequate Anisocytosis 1+ Schistocytes None seen Sodium 135 L Potassium 3.1 L Chloride 106 Carbon Dioxide 21 L Anion Gap 8 BUN 30 H Creatinine 1.96 H Estim Creat Clear Calc 30 Estimated GFR 25 L Glucose 85 Calcium 8.4 Quality VTE Prophylaxis VTE prophylaxis: mechanical ordered and pharmacologic ordered
[2025-02-15 19:28] LABS: Human Parainfluenza Virus 1 Not Detected (Not Detected); Human Parainfluenza Virus 2 Not Detected (Not Detected); Human Parainfluenza Virus 3 Detected (Not Detected); Human Parainfluenza Virus 4 Not Detected (Not Detected); Human RSV B Not Detected (Not Detected)
--- NOTE | 2025-02-15 23:34 | PC.NURSE ---
Pt moved from 232 to 347. SBAR/Report given to TARA Presley. All charting completed and meds given prior to pt being transferred.
[2025-02-16] VITALS (16 sets, daily range): BP systolic 117–120; BP diastolic 42–89; PULSE 73–86; RESP 18–20; TEMP 36.4–36.6; O2SAT 94–98
[2025-02-16] MEDS: CEFEPIME 2 GM/NS 50 ML 2 GM/50 ML BAG IVPB ×2 (05:13→17:26)
[2025-02-16 08:25] LABS: Hematocrit 31.9 % (37.0-47.0); Hemoglobin 10.3 g/dL (12.0-15.0); Mean Corpuscular HGB Conc 32.3 g/dl (32-36); Mean Corpuscular Hemoglobin 32.4 pg (26-34); Mean Corpuscular Volume 100.3 fl (80-100); Platelet Count Result 326 k/mm3 (150-375); Red Blood Count 3.18 M/mm3 (4.2-5.4); White Blood Count 17.7 K/mm3 (4.5-10.0)
[2025-02-16 09:18] LABS: Anion Gap 11 mmol/L (4-12); Blood Urea Nitrogen 31 mg/dL (7-17); Calcium 8.3 mg/dL (8.4-10.2); Carbon Dioxide 17 mmol/L (22-30); Chloride 108 mmol/L (98-107); Estimated CRCL calculation 30 ml/min; Estimated Glomerular Filt Rate 25; Glucose 78 mg/dL (65-110); Potassium 3.9 mmol/L (3.4-5.0); Sodium 136 mmol/L (137-145)
[2025-02-16] MEDS: DULoxetine HCL 60 MG CAPSULE.DR PO ×2 (11:57→21:34)
[2025-02-16] MEDS: SERTRALINE HCL 50 MG TABLET 100 MG PO (11:57)
[2025-02-16] MEDS: ONDANSETRON INJ 4 MG/2 ML VIAL IV PUSH (12:09)
--- NOTE | 2025-02-16 12:11 | PC.NURSE ---
Patient woke up. Took off mittens. She was oriented and could take a sip of soda, so I crushed her medications in a small amount of soda and she took two sips and puked. RN gave her Zofran and will attempt to have her drink the rest of the soda with medications.
--- NOTE | 2025-02-16 15:18 | P.PNIM_ITS ---
Progress Note: A&P Assessment and Plan (1) Altered mental status: Code(s): R41.82 - Altered mental status, unspecified Status: Acute Assessment and Plan: Infection verses stroke versus electrolyte imbalance versus other CT head no acute findings Replete electrolytes as needed IV antibiotics for infection. vancomycin, and cefepime Blood culture positive for MRSA. Continue vancomycin TTE neg for endocarditis. per cardiology if repeat B/C neg no need for QI Repeat blood culture since 02/09/2025 has been negative Follow-up blood culture results Holding sedated of medications until more alert PT/OT/ST Hold lorazepam (2) JERRY (acute kidney injury): Code(s): N17.9 - Acute kidney failure, unspecified Status: Acute Assessment and Plan: IV fluids for hydration worsening lasix on hold Repeat BMP US renal unremarkable Creatinine is stable Vanc level elevated (3) Acute hypokalemia: Code(s): E87.6 - Hypokalemia Status: Acute Assessment and Plan: replaced, continue monitoring (4) UTI (urinary tract infection): Qualifiers: Urinary tract infection type: acute cystitis Hematuria presence: without hematuria Qualified Code(s): N30.00 - Acute cystitis without hematuria Code(s): N39.0 - Urinary tract infection, site not specified Status: Acute Assessment and Plan: Could be causing altered mental status received rocephin Currently on cefepime (5) Diarrhea: Code(s): R19.7 - Diarrhea, unspecified Status: Acute Assessment and Plan: Likely cause of acute dehydration and hypokalemia Negative for C diff Imodium (6) Bipolar disorder: Qualifiers: Active/Remission status: in remission of unspecified degree Qualified Code(s): F31.70 - Bipolar disorder, currently in remission, most recent episode unspecified Code(s): F31.9 - Bipolar disorder, unspecified Status: Acute Assessment and Plan: Patient on Lamictal and sertraline (7) HTN (hypertension): Qualifiers: Hypertension type: essential hypertension Qualified Code(s): I10 - Essential (primary) hypertension Code(s): I10 - Essential (primary) hypertension Status: Chronic Assessment and Plan: lasix dc due to JERRY (8) Diastolic dysfunction: Code(s): I51.89 - Other ill-defined heart diseases Status: Acute Assessment and Plan: Acute on chronic HFpEF dc lasix due to JERRY cardiology team on board (9) Obstructive sleep apnea on CPAP: Code(s): G47.33 - Obstructive sleep apnea (adult) (pediatric); Z99.89 - Dependence on other enabling machines and devices Status: Acute Assessment and Plan: Does not appear to be on home CPAP (10) Sepsis: Code(s): A41.9 - Sepsis, unspecified organism Status: Acute Assessment and Plan: possible pneumonia vs UTI IV antibiotics for infection. received Rocephin, vancomycin, Flagyl. continue vancomycin cefepime for possible pneumonia Blood culture positive for mRSA Follow-up blood culture results TTE neg for endocarditis pulmonary team on board Respiratory pathogen panel positive for parainfluenza 3 (11) NSTEMI (non-ST elevated myocardial infarction): Code(s): I21.4 - Non-ST elevation (NSTEMI) myocardial infarction Status: Acute Assessment and Plan: Troponin: 0.287-0.364 Likely demand ischemia monitor for now Cardiology team on board Plan DVT prophylaxis on Sq Heparin Subjective Date/time seen: 02/16/25 15:18 Interval history: per HPI: 69-year-old female history of bipolar 1, hypertension, brain tumor, iron deficiency anemia, CKD and SIMEON presents to the hospital with altered mental status from a care home. HPI is limited due to altered mental status. Per the the patient had a fall was found to have a brain bleed and was transferred to [facility] and then discharged to rehab and then sent to a care home due to not progressing in rehab. She has been wheelchair- bound. He states that over the last couple days she became more and more withdrawn. He is unaware of her having another fall Lab work in the ED shows leukocytosis at 15.4, hemoglobin of 11.9, sodium of 133, potassium a less than 2, creatinine of 3.36 baseline being 1, GFR 12, AST 57 ALT 46, UA with 2+ leukocyte esterase moderate squamous cells negative nitrates and yeast, and C diff is negative 02/09/25 Patient was seen and examined at [facility]. She is alert oriented to herself and place. Denies any chest pain, shortness of breath, abd pain, N/V. Blood culture positive for Gram-positive cocci in cluster. Antibiotics were changed to Rocephin, vancomycin and Flagyl. Discussed with pharmacy team. Repeat blood culture was ordered. Renal ultrasound unremarkable 02/10/25 Patient was seen examined with. She is oriented to her name only. Denies any chest pain, shortness of breath, abdominal pain, nausea vomiting WBC improved to 17.1. Potassium 3.3. Creatinine improved to 1.75 Blood culture positive for MRSA. Will get echo. Continue with vancomycin 02/11/25 Patient was seen and examined at bedside. She is alert oriented to her name and place denies any chest pain, shortness off breath, abdominal pain, nausea vomiti ng. No acute event overnight. Kidney function improving. WBC 17.4. Echo pending. Repeat blood culture since 02/09/2025 has been negative 02/12/25 Patient was seen examined at bedside. She isn't more awake oriented today. Denies any chest pain, shortness to stop breath, abdominal pain, nausea vomiting. Continue with vancomycin. Echo pending. 02/13/25 Patient was seen examined at bedside. She is more alert oriented today. She is on 2 L oxygen. Pulmonary and cardiology team on board. Plan for modified barium swallow. Continue with Lasix continue with vancomycin and cefepime. TTE negative for vegetation. per cardiology we need to repeat B/C and then decide 02/14/25 Patient was seen and examined at bedside. She is alert oriented to her name and place denies any chest pain, shortness off breath, abdominal pain, nausea vomiting. No acute event overnight. patient has worsening kidney function will dc lasix. her breathing improving and sat is 94% on 1 lit O2 02/15/25 Patient was seen and examined at bedside. she is confused today. denies any chest pain,SOB,abd pain, nausea vomiting. O2 sat has been stable at night on 3 lit o2. continue cefepime and vancomycin. 02/16/2025: Patient remains confused. Labs reviewed. Discussed with nursing staff. Remains afebrile today Review of Systems Review of Systems: ROS unobtainable: Yes unobtainable due to mental status Exam Narrative: General: Chronically ill, appears older than stated age confused HEENT: normocephalic, atraumatic. Mucous membranes moist. EOMI, PERRLA Respiratory: Coarse breath sounds bilaterally no respiratory distress Cardiovascular: Regular rate and rhythm, normal S1-S2 upon ascultation. Abdomen: Soft, round, no pulsatile masses, nondistended and nontender. Extremities: No cyanosis, clubbing, Pulses are palpable 2/2. Neuro: Somnolent confused oriented to self. PERRLA. Cranial nerves 2-12 intact without focal deficit. Renal extremities Skin: Warm, dry, and intact, without rash, erythema, or lesion. Psych: Unable to assess Objective Data Vital Signs Vital Signs: Vital Signs - 24 hr 02/15/25 16:00 02/15/25 16:00 02/15/25 20:00 Temperature 98.9 F 99.2 F Pulse Rate 82 82 97 Respiratory Rate 16 20 Blood Pressure 122/55 L 119/55 L Pulse Oximetry 94 92 Oxygen Delivery Oxygen Flow Rate 02/15/25 20:00 02/15/25 20:00 02/15/25 21:05 Temperature Pulse Rate 89 84 Respiratory Rate 20 Blood Pressure Pulse Oximetry 95 Oxygen Delivery Nasal Cannula Oxygen Flow Rate 1 02/15/25 21:13 02/15/25 21:14 02/16/25 00:00 Temperature Pulse Rate 88 82 Respiratory Rate 20 Blood Pressure Pulse Oximetry 95 Oxygen Delivery Oxygen Flow Rate 3 02/16/25 01:00 02/16/25 01:09 02/16/25 04:00 Temperature Pulse Rate 79 81 80 Respiratory Rate 20 20 Blood Pressure Pulse Oximetry Oxygen Delivery Oxygen Flow Rate 02/16/25 05:46 02/16/25 09:16 02/16/25 09:23 Temperature 98 F Pulse Rate 78 76 74 Respiratory Rate 18 20 20 Blood Pressure 120/89 Pulse Oximetry 98 Oxygen Delivery Oxygen Flow Rate 02/16/25 11:56 02/16/25 13:05 02/16/25 13:44 Temperature 97.5 F L Pulse Rate 80 73 Respiratory Rate 18 Blood Pressure 118/42 L Pulse Oximetry 94 97 Oxygen Delivery Nasal Cannula Oxygen Flow Rate 3 Intake/Output Intake/Output: Intake & Output 02/13/25 02/14/25 02/15/25 02/16/25 23:59 23:59 23:59 23:59 Intake Total 870.0 810 1060 0 Output Total 450 250 400 250 Balance 420.0 560 660 -250 Meds/Results Medications: Active Medications Generic Name Dose Route Start Last Admin Trade Name Freq PRN Reason Stop Dose Admin Acetaminophen 650 mg 02/07/25 15:41 02/07/25 20:34 Acetaminophen 325 Mg Tablet PO 650 mg Q4H PRN Administration Mild Pain (1-3) or Fever Hydrocodone Bitart/Acetaminophen 1 tab 02/07/25 15:41 02/12/25 03:11 Hydrocodone/Acetaminophen (*Crx) 5-325 Mg Tablet PO 1 tab Q4H PRN Administration Pain Rated 4-6 Artificial Tears 1 drop 02/08/25 09:32 Artificial Tears Ophth Soln 15 Ml Bottle EACH EYE 03/10/25 09:31 PRN PRN dry eye(s) Carvedilol 18.75 mg 02/08/25 09:00 02/16/25 11:56 Carvedilol 6.25 Mg Tablet PO 18.75 mg Q12HR CARLIN Administration Duloxetine HCl 60 mg 02/08/25 09:00 02/16/25 11:57 Duloxetine Hcl 60 Mg Capsule.Dr PO 60 mg Q12HR CARLIN Administration Heparin Sodium (Porcine) 5,000 units 02/13/25 14:00 02/16/25 05:13 Heparin Sodium 5,000 Units/Ml Vial SUB-Q 5,000 units Q8HR CARLIN Administration Cefepime HCl 2 gm in 50 mls @ 100 mls/hr 02/13/25 04:00 02/16/25 05:13 Maxipime 2 Gm/Ns 50 Ml IVPB 100 mls/hr Q12H CARLIN Administration Vancomycin HCl 750 mg in 250 mls @ 250 mls/hr 02/16/25 21:00 Vancomycin 750 Mg/Ns 250 Ml IVPB Q36H CARLIN Lamotrigine 200 mg 02/08/25 09:00 02/16/25 12:02 Lamotrigine 100 Mg Tablet PO 200 mg Q12HR CARLIN Administration Levalbuterol HCl 1.25 mg 02/11/25 20:00 02/16/25 09:16 Levalbuterol Neb 1.25 Mg/3 Ml INHALATION 1.25 mg Q6HRT CARLIN Administration Loperamide HCl 2 mg 02/07/25 18:18 02/12/25 14:35 Loperamide Hcl 2 Mg Capsule PO 2 mg PRN PRN Administration Diarrhea Lorazepam 1 mg 02/09/25 15:15 02/15/25 10:49 Lorazepam (*Crx) 1 Mg Tablet PO 1 mg Q8H PRN Administration Anxiety Ondansetron HCl 4 mg 02/07/25 15:41 02/16/25 12:09 Ondansetron Inj 4 Mg/2 Ml Vial IV PUSH 4 mg Q4H PRN Administration Nausea Sertraline HCl 100 mg 02/08/25 09:00 02/16/25 11:57 Sertraline Hcl 50 Mg Tablet PO 100 mg DAILY CARLIN Administration Radiology Results: ITS Impressions Head CT 02/07/25 18:39 Impression: No acute intracranial hemorrhage or suspicious mass effect. Renal Ultrasound 02/08/25 19:23 IMPRESSION: No hydronephrosis or renal calculi. Parenchyma of the bilateral kidneys are unremarkable. Chest X-Ray 02/12/25 16:28 IMPRESSION: Bilateral pneumonia. Underlying pulmonary edema cannot be excluded Modified Barium Swallow 02/14/25 11:22 IMPRESSION: Mild pharyngeal dysphagia with laryngeal penetration without aspiration. Please correlate with speech pathologist findings and specific feeding recommendations. Labs Labs: Laboratory Results - last 24 hr 02/13/25 02/16/25 11:21 08:14 WBC 17.7 H RBC 3.18 L Hgb 10.3 L Hct 31.9 L MCV 100.3 H D MCH 32.4 MCHC 32.3 RDW 18.3 H Plt Count 326 MPV 9.5 Sodium 136 L Potassium 3.9 Chloride 108 H Carbon Dioxide 17 L Anion Gap 11 BUN 31 H Creatinine 1.98 H Estim Creat Clear Calc 30 Estimated GFR 25 L Glucose 78 Calcium 8.3 L Nasal RSV Type A (PCR) Not detected Nasal RSV Type B (PCR) Not detected Vancomycin Trough 20.9 H Chlamy pneumoniae PCR Not detected Adenovirus DNA Not detected Human Bocavirus (JANA) Not detected Coronavirus Type OC43 Not detected Coronavirus Type HKU1 Not detected Coronavirus Type 229E Not detected Coronavirus Type NL63 Not detected Human Metapneumovir PCR Not detected Influenza A (PCR) Not detected Influenza A (H1) RNA Not detected Influenza A (H3) PCR Not detected M. pneumoniae DNA Not detected Parainfluenza PCR Not detected Parainfluenza 2 (PCR) Not detected Parainfluenza 3 RNA (PCR) Detected A Parainfluenza 4 (PCR) Not detected Rhino/Enterovirus (JANA) Not detected Influenza Type B (PCR) Not detected Misc Test Comment see note
[2025-02-16 17:27] LABS: Legionella pneumophila Ag Ur. NOT DETECTED
[2025-02-16] MEDS: HYDROcodone/acetaminophen (*CRX) 5-325 MG TABLET 1 TAB PO (21:40)
[2025-02-16] MEDS: VANCOMYCIN 750 MG/NS 250 ML 750 MG/250 ML BAG 250 MG IVPB (21:42)
[2025-02-17] VITALS (17 sets, daily range): BP systolic 130–139; BP diastolic 61–77; PULSE 70–84; RESP 14–20; TEMP 36.4–36.8; O2SAT 92–100
[2025-02-17] MEDS: CEFEPIME 2 GM/NS 50 ML 2 GM/50 ML BAG IVPB ×2 (03:56→16:29)
[2025-02-17 06:01] LABS: Hematocrit 31.4 % (37.0-47.0); Hemoglobin 10.1 g/dL (12.0-15.0); Mean Corpuscular HGB Conc 32.2 g/dl (32-36); Mean Corpuscular Hemoglobin 31.7 pg (26-34); Mean Corpuscular Volume 98.4 fl (80-100); Platelet Count Result 344 k/mm3 (150-375); Red Blood Count 3.19 M/mm3 (4.2-5.4); White Blood Count 16.7 K/mm3 (4.5-10.0)
--- NOTE | 2025-02-17 06:15 | PCRCNOTE ---
Patient agitate, refused 0200 updraft treatment. Treatment to resume at 0800.
[2025-02-17 06:19] LABS: Alanine Aminotransferase 25 U/L (6-35); Albumin Level 2.2 g/dL (3.5-5.1); Alkaline Phosphatase 127 U/L (38-126); Anion Gap 13 mmol/L (4-12); Aspartate Amino Transferase 71 U/L (14-36); Bilirubin,Total 0.7 mg/dL (0.2-1.3); Blood Urea Nitrogen 33 mg/dL (7-17); Calcium 8.4 mg/dL (8.4-10.2); Carbon Dioxide 13 mmol/L (22-30); Chloride 109 mmol/L (98-107); Estimated CRCL calculation 29 ml/min; Estimated Glomerular Filt Rate 24; Glucose 83 mg/dL (65-110); Magnesium 2.3 mg/dL (1.6-2.3); Potassium 3.7 mmol/L (3.4-5.0); Sodium 135 mmol/L (137-145); Total Protein 5.1 g/dL (6.3-8.2)
[2025-02-17 06:36] LABS: Band Neutrophils Percent 2 % (0-6); Basophils Absolute Manual 0.16 K/mm3 (0.0-0.1); Basophils Percent Manual 1 % (0-1); Lymphocytes Absolute Manual 1.83 K/mm3 (1.1-4.5); Lymphocytes Percent Manual 11 % (18-44); Monocytes Absolute Manual 1.00 K/mm3 (0.1-0.90); Monocytes Percent Manual 6 % (3-9); Neutrophils Absolute Manual 13.69 K/mm3 (1.3-6.7); Neutrophils Percent Manual 80 % (46-73); Total Cells Counted 100
[2025-02-17 06:37] LABS: Anisocytosis 1+; Burr Cells 1+; Schistocytes None Seen
--- NOTE | 2025-02-17 14:22 | P.PNIM_ITS ---
Progress Note: A&P Assessment and Plan (1) Altered mental status: Code(s): R41.82 - Altered mental status, unspecified Status: Acute Assessment and Plan: Infection verses stroke versus electrolyte imbalance versus other CT head no acute findings Replete electrolytes as needed IV antibiotics for infection. vancomycin, and cefepime Blood culture positive for MRSA. Continue vancomycin TTE neg for endocarditis. per cardiology if repeat B/C neg no need for QI Repeat blood culture since 02/09/2025 has been negative Follow-up blood culture results Holding sedated of medications until more alert PT/OT/ST Hold lorazepam (2) JERRY (acute kidney injury): Code(s): N17.9 - Acute kidney failure, unspecified Status: Acute Assessment and Plan: IV fluids for hydration worsening lasix on hold Repeat BMP US renal unremarkable Creatinine is stable but elevated than baseline. Vanc level elevated and likely indicated above vanc toxicity Vanc dose has been adjusted (3) Acute hypokalemia: Code(s): E87.6 - Hypokalemia Status: Acute Assessment and Plan: replaced, continue monitoring (4) UTI (urinary tract infection): Qualifiers: Urinary tract infection type: acute cystitis Hematuria presence: without hematuria Qualified Code(s): N30.00 - Acute cystitis without hematuria Code(s): N39.0 - Urinary tract infection, site not specified Status: Acute Assessment and Plan: Could be causing altered mental status received rocephin Currently on cefepime for healthcare associated pneumonia. Complete 7 days course started 02/13/2025 (5) Diarrhea: Code(s): R19.7 - Diarrhea, unspecified Status: Acute Assessment and Plan: Likely cause of acute dehydration and hypokalemia Negative for C diff Imodium (6) Bipolar disorder: Qualifiers: Active/Remission status: in remission of unspecified degree Qualified Code(s): F31.70 - Bipolar disorder, currently in remission, most recent episode unspecified Code(s): F31.9 - Bipolar disorder, unspecified Status: Acute Assessment and Plan: Patient on Lamictal and sertraline (7) HTN (hypertension): Qualifiers: Hypertension type: essential hypertension Qualified Code(s): I10 - Essential (primary) hypertension Code(s): I10 - Essential (primary) hypertension Status: Chronic Assessment and Plan: lasix dc due to JERRY (8) Diastolic dysfunction: Code(s): I51.89 - Other ill-defined heart diseases Status: Acute Assessment and Plan: Acute on chronic HFpEF dc lasix due to JERRY cardiology team on board (9) Obstructive sleep apnea on CPAP: Code(s): G47.33 - Obstructive sleep apnea (adult) (pediatric); Z99.89 - Dependence on other enabling machines and devices Status: Acute Assessment and Plan: Does not appear to be on home CPAP (10) Sepsis: Code(s): A41.9 - Sepsis, unspecified organism Status: Acute Assessment and Plan: possible pneumonia vs UTI IV antibiotics for infection. received Rocephin, vancomycin, Flagyl. continue vancomycin cefepime for possible pneumonia Blood culture positive for MRSA Follow-up blood culture results TTE neg for endocarditis pulmonary team on board Respiratory pathogen panel positive for parainfluenza 3 Cefepime for possible healthcare associated pneumonia. D5/7 Repeat chest x-ray with some improvement in left lower lung zone (11) NSTEMI (non-ST elevated myocardial infarction): Code(s): I21.4 - Non-ST elevation (NSTEMI) myocardial infarction Status: Acute Assessment and Plan: Troponin: 0.287-0.364 Likely demand ischemia monitor for now Cardiology team on board Plan DVT prophylaxis on Sq Heparin Subjective Date/time seen: 02/17/25 14:22 Interval history: per HPI: 69-year-old female history of bipolar 1, hypertension, brain tumor, iron deficiency anemia, CKD and SIMEON presents to the hospital with altered mental status from a assisted. HPI is limited due to altered mental status. Per the the patient had a fall was found to have a brain bleed and was transferred to [facility] and then discharged to rehab and then sent to a assisted due to not progressing in rehab. She has been wheelchair- bound. He states that over the last couple days she became more and more withdrawn. He is unaware of her having another fall Lab work in the ED shows leukocytosis at 15.4, hemoglobin of 11.9, sodium of 133, potassium a less than 2, creatinine of 3.36 baseline being 1, GFR 12, AST 57 ALT 46, UA with 2+ leukocyte esterase moderate squamous cells negative nitrates and yeast, and C diff is negative 02/09/25 Patient was seen and examined at [facility]. She is alert oriented to herself and place. Denies any chest pain, shortness of breath, abd pain, N/V. Blood culture positive for Gram-positive cocci in cluster. Antibiotics were changed to Rocephin, vancomycin and Flagyl. Discussed with pharmacy team. Repeat blood culture was ordered. Renal ultrasound unremarkable 02/10/25 Patient was seen examined with. She is oriented to her name only. Denies any chest pain, shortness of breath, abdominal pain, nausea vomiting WBC improved to 17.1. Potassium 3.3. Creatinine improved to 1.75 Blood culture positive for MRSA. Will get echo. Continue with vancomycin 02/11/25 Patient was seen and examined at bedside. She is alert oriented to her name and place denies any chest pain, shortness off breath, abdominal pain, nausea vomiting. No acute event overnight. Kidney function improving. WBC 17.4. Echo pending. Repeat blood culture since 02/09/2025 has been negative 02/12/25 Patient was seen examined at bedside. She isn't more awake oriented today. Denies any chest pain, shortness to stop breath, abdominal pain, nausea vomiting. Continue with vancomycin. Echo pending. 02/13/25 Patient was seen examined at bedside. She is more alert oriented today. She is on 2 L oxygen. Pulmonary and cardiology team on board. Plan for modified barium swallow. Continue with Lasix continue with vancomycin and cefepime. TTE negative for vegetation. per cardiology we need to repeat B/C and then decide 02/14/25 Patient was seen and examined at bedside. She is alert oriented to her name and place denies any chest pain, shortness off breath, abdominal pain, nausea vomiting. No acute event overnight. patient has worsening kidney function will dc lasix. her breathing improving and sat is 94% on 1 lit O2 02/15/25 Patient was seen and examined at bedside. she is confused today. denies any chest pain,SOB,abd pain, nausea vomiting. O2 sat has been stable at night on 3 lit o2. continue cefepime and vancomycin. 02/16/2025: Patient remains confused. Labs reviewed. Discussed with nursing staff. Remains afebrile today 02/09/2025: Patient refusing medications. Refuses to talk to me today. Labs reviewed. Review of Systems Review of Systems: ROS unobtainable: Yes unobtainable due to mental status Exam Narrative: General: Chronically ill, appears older than stated age confused HEENT: normocephalic, atraumatic. Mucous membranes moist. EOMI, PERRLA Respiratory: Coarse breath sounds bilaterally no respiratory distress Cardiovascular: Regular rate and rhythm, normal S1-S2 upon ascultation. Abdomen: Soft, round, no pulsatile masses, nondistended and nontender. Extremities: No cyanosis, clubbing, Pulses are palpable 2/2. Neuro: More awake however non cooperative oriented to self. PERRLA. Cranial nerves 2-12 intact without focal deficit. Skin: Warm, dry, and intact, without rash, erythema, or lesion. Psych: Non cooperative Objective Data Vital Signs Vital Signs: Vital Signs - 24 hr 02/16/25 16:00 02/16/25 20:00 02/16/25 20:00 Temperature Pulse Rate 78 79 Respiratory Rate Blood Pressure Pulse Oximetry 98 Oxygen Delivery Nasal Cannula Oxygen Flow Rate 2 Fraction of Inspired Oxygen 60 02/16/25 20:36 02/16/25 20:42 02/16/25 20:46 Temperature Pulse Rate 78 78 75 Respiratory Rate 20 20 Blood Pressure Pulse Oximetry 97 Oxygen Delivery Oxygen Flow Rate 3 Fraction of Inspired Oxygen 02/16/25 22:00 02/17/25 00:00 02/17/25 04:00 Temperature 97.7 F Pulse Rate 86 76 74 Respiratory Rate 20 Blood Pressure 117/81 Pulse Oximetry 98 Oxygen Delivery Oxygen Flow Rate Fraction of Inspired Oxygen 02/17/25 06:00 02/17/25 08:00 02/17/25 08:00 Temperature 97.5 F L Pulse Rate 76 74 Respiratory Rate 18 Blood Pressure 139/65 Pulse Oximetry 96 93 Oxygen Delivery Nasal Cannula Oxygen Flow Rate 2 Fraction of Inspired Oxygen 02/17/25 08:46 02/17/25 08:47 02/17/25 08:49 Temperature Pulse Rate 77 77 77 Respiratory Rate 16 14 18 Blood Pressure Pulse Oximetry 92 Oxygen Delivery Nasal Cannula Oxygen Flow Rate 2 Fraction of Inspired Oxygen 02/17/25 08:50 02/17/25 08:55 02/17/25 14:20 Temperature Pulse Rate 77 80 70 Respiratory Rate 14 16 Blood Pressure Pulse Oximetry 92 Oxygen Delivery Oxygen Flow Rate 2 Fraction of Inspired Oxygen Intake/Output Intake/Output: Intake & Output 02/14/25 02/15/25 02/16/25 02/17/25 23:59 23:59 23:59 23:59 Intake Total 810 1060 100 200 Output Total 250 400 550 700 Balance 560 727 -450 500 Meds/Results Medications: Active Medications Generic Name Dose Route Start Last Admin Trade Name Freq PRN Reason Stop Dose Admin Acetaminophen 650 mg 02/07/25 15:41 02/07/25 20:34 Acetaminophen 325 Mg Tablet PO 650 mg Q4H PRN Administration Mild Pain (1-3) or Fever Hydrocodone Bitart/Acetaminophen 1 tab 02/07/25 15:41 02/16/25 21:40 Hydrocodone/Acetaminophen (*Crx) 5-325 Mg Tablet PO 1 tab Q4H PRN Administration Pain Rated 4-6 Artificial Tears 1 drop 02/08/25 09:32 Artificial Tears Ophth Soln 15 Ml Bottle EACH EYE 03/10/25 09:31 PRN PRN dry eye(s) Carvedilol 18.75 mg 02/08/25 09:00 02/16/25 21:34 Carvedilol 6.25 Mg Tablet PO 18.75 mg Q12HR CARLIN Administration Duloxetine HCl 60 mg 02/08/25 09:00 02/16/25 21:34 Duloxetine Hcl 60 Mg Capsule. PO 60 mg Q12HR CARLIN Administration Heparin Sodium (Porcine) 5,000 units 02/13/25 14:00 02/17/25 06:07 Heparin Sodium 5,000 Units/Ml Vial SUB-Q 5,000 units Q8HR CARLIN Administration Cefepime HCl 2 gm in 50 mls @ 100 mls/hr 02/13/25 04:00 02/17/25 03:56 Maxipime 2 Gm/Ns 50 Ml IVPB 100 mls/hr Q12H CARLIN Administration Vancomycin HCl 750 mg in 250 mls @ 250 mls/hr 02/16/25 21:00 02/16/25 21:42 Vancomycin 750 Mg/Ns 250 Ml IVPB 250 mls/hr Q36H CARLIN Administration Lamotrigine 200 mg 02/08/25 09:00 02/16/25 21:34 Lamotrigine 100 Mg Tablet PO 200 mg Q12HR CARLIN Administration Levalbuterol HCl 1.25 mg 02/11/25 20:00 02/17/25 14:17 Levalbuterol Neb 1.25 Mg/3 Ml INHALATION 1.25 mg Q6HRT CARLIN Administration Loperamide HCl 2 mg 02/07/25 18:18 02/12/25 14:35 Loperamide Hcl 2 Mg Capsule PO 2 mg PRN PRN Administration Diarrhea Lorazepam 1 mg 02/09/25 15:15 02/15/25 10:49 Lorazepam (*Crx) 1 Mg Tablet PO 1 mg Q8H PRN Administration Anxiety Miscellaneous Information 1 each 02/16/25 00:01 Please Renew [place]-5. Per [employer] Procedure, It Will Discontinue 02/17 If Not Renewed XX 03/18/25 00:00 CLARIFY CARLIN Ondansetron HCl 4 mg 02/07/25 15:41 02/16/25 12:09 Ondansetron Inj 4 Mg/2 Ml Vial IV PUSH 4 mg Q4H PRN Administration Nausea Sertraline HCl 100 mg 02/08/25 09:00 02/16/25 11:57 Sertraline Hcl 50 Mg Tablet PO 100 mg DAILY CARLIN Administration Radiology Results: ITS Impressions Head CT 02/07/25 18:39 Impression: No acute intracranial hemorrhage or suspicious mass effect. Renal Ultrasound 02/08/25 19:23 IMPRESSION: No hydronephrosis or renal calculi. Parenchyma of the bilateral kidneys are unremarkable. Modified Barium Swallow 02/14/25 11:22 IMPRESSION: Mild pharyngeal dysphagia with laryngeal penetration without aspiration. Please correlate with speech pathologist findings and specific feeding recommendations. Chest X-Ray 02/17/25 07:21 IMPRESSION: 1. Patchy bilateral lung disease which could represent pneumonia and/or atelectasis with some improvement in the left lower lung zone. Labs Labs: Laboratory Results - last 24 hr 02/13/25 02/13/25 02/17/25 11:21 13:04 05:40 WBC 16.7 H RBC 3.19 L Hgb 10.1 L Hct 31.4 L MCV 98.4 MCH 31.7 MCHC 32.2 RDW 18.3 H Plt Count 344 MPV 9.0 Immature Gran % (Auto) Not Reportable Neut % (Auto) Not Reportable Lymph % (Auto) Not Reportable [place] % (Auto) Not Reportable Eos % (Auto) Not Reportable Baso % (Auto) Not Reportable Lymph # (Auto) Not Reportable [place] # (Auto) Not Reportable Eos # (Auto) Not Reportable Baso # (Auto) Not Reportable Abs Immat Gran (auto) Not Reportable Absolute Neuts (auto) Not Reportable Absolute Nucleated RBC Not Reportable Total Counted 100 Neutrophils % (Manual) 80 H Band Neutrophils % 2 Lymphocytes % (Manual) 11 L Monocytes % (Manual) 6 Basophils % (Manual) 1 Nucleated RBC % Not Reportable Abs Neuts (Manual) 13.69 H Abs Lymphs (Manual) 1.83 Abs Monocytes (Manual) 1.00 H Abs Basophils (Manual) 0.16 H Platelet Estimate Adequate Anisocytosis 1+ Surveyor Cells 1+ Schistocytes None seen Sodium 135 L Potassium 3.7 Chloride 109 H Carbon Dioxide 13 L Anion Gap 13 H BUN 33 H Creatinine 2.02 H Estim Creat Clear Calc 29 Estimated GFR 24 L Glucose 83 Calcium 8.4 Magnesium 2.3 Total Bilirubin 0.7 AST 71 H ALT 25 Alkaline Phosphatase 127 H Total Protein 5.1 L Albumin 2.2 L Ur L.pneumophila Ag Not detected SARS-CoV-2 RNA (RT-PCR) Not detected Urine Pneumococcal Ag Not detected
[2025-02-17 18:03] LABS: Mycoplasma IgM Antibody Titer. 43 U/mL
[2025-02-18] VITALS (13 sets, daily range): BP systolic 117–138; BP diastolic 45–76; PULSE 64–86; RESP 16–30; TEMP 36.4–36.8; O2SAT 96–99
[2025-02-18] MEDS: CEFEPIME 2 GM/NS 50 ML 2 GM/50 ML BAG IVPB ×2 (05:09→17:03)
[2025-02-18 07:58] LABS: Hematocrit 35.6 % (37.0-47.0); Hemoglobin 11.8 g/dL (12.0-15.0); Mean Corpuscular HGB Conc 33.1 g/dl (32-36); Mean Corpuscular Hemoglobin 31.9 pg (26-34); Mean Corpuscular Volume 96.2 fl (80-100); Platelet Count Result 465 k/mm3 (150-375); Red Blood Count 3.70 M/mm3 (4.2-5.4); White Blood Count 20.8 K/mm3 (4.5-10.0)
[2025-02-18 07:58] LABS: Alanine Aminotransferase 30 U/L (6-35); Albumin Level 2.7 g/dL (3.5-5.1); Alkaline Phosphatase 164 U/L (38-126); Anion Gap 10 mmol/L (4-12); Aspartate Amino Transferase 65 U/L (14-36); Bilirubin,Total 0.7 mg/dL (0.2-1.3); Blood Urea Nitrogen 34 mg/dL (7-17); Calcium 8.6 mg/dL (8.4-10.2); Carbon Dioxide 18 mmol/L (22-30); Chloride 107 mmol/L (98-107); Estimated CRCL calculation 27 ml/min; Estimated Glomerular Filt Rate 22; Glucose 104 mg/dL (65-110); Magnesium 2.3 mg/dL (1.6-2.3); Potassium 3.5 mmol/L (3.4-5.0); Sodium 135 mmol/L (137-145); Total Protein 6.2 g/dL (6.3-8.2)
[2025-02-18 08:46] LABS: Anisocytosis 1+; Band Neutrophils Percent 2 % (0-6); Lymphocytes Absolute Manual 0.62 K/mm3 (1.1-4.5); Lymphocytes Percent Manual 3 % (18-44); Monocytes Absolute Manual 1.04 K/mm3 (0.1-0.90); Monocytes Percent Manual 5 % (3-9); Neutrophils Absolute Manual 19.13 K/mm3 (1.3-6.7); Neutrophils Percent Manual 90 % (46-73); Total Cells Counted 100
[2025-02-18 08:47] LABS: Schistocytes None Seen
[2025-02-18] MEDS: SERTRALINE HCL 50 MG TABLET 100 MG PO (09:22)
[2025-02-18] MEDS: VANCOMYCIN 500 MG/NS 100 ML 500 MG/100 ML BAG 100 MG IVPB (09:22)
[2025-02-18] MEDS: DULoxetine HCL 60 MG CAPSULE.DR PO ×2 (09:23→23:33)
--- NOTE | 2025-02-18 12:36 | P.PNIM_ITS ---
Progress Note: A&P Assessment and Plan (1) Altered mental status: Code(s): R41.82 - Altered mental status, unspecified Status: Acute Assessment and Plan: Infection verses stroke versus electrolyte imbalance versus other CT head no acute findings Replete electrolytes as needed IV antibiotics for infection. vancomycin, and cefepime Blood culture positive for MRSA. Continue vancomycin TTE neg for endocarditis. per cardiology if repeat B/C neg no need for QI Repeat blood culture since 02/09/2025 has been negative Follow-up blood culture results Holding sedated of medications until more alert PT/OT/ST Hold lorazepam (2) JERRY (acute kidney injury): Code(s): N17.9 - Acute kidney failure, unspecified Status: Acute Assessment and Plan: IV fluids for hydration worsening lasix on hold Repeat BMP US renal unremarkable Creatinine is stable but elevated than baseline. Vanc level elevated and likely indicated above vanc toxicity Vanc dose has been adjusted Continue to trend creatinine (3) Acute hypokalemia: Code(s): E87.6 - Hypokalemia Status: Acute Assessment and Plan: replaced, continue monitoring (4) UTI (urinary tract infection): Qualifiers: Urinary tract infection type: acute cystitis Hematuria presence: without hematuria Qualified Code(s): N30.00 - Acute cystitis without hematuria Code(s): N39.0 - Urinary tract infection, site not specified Status: Acute Assessment and Plan: Could be causing altered mental status received rocephin Currently on cefepime for healthcare associated pneumonia. Complete 7 days course started 02/13/2025 (5) Diarrhea: Code(s): R19.7 - Diarrhea, unspecified Status: Acute Assessment and Plan: Likely cause of acute dehydration and hypokalemia Negative for C diff Imodium (6) Bipolar disorder: Qualifiers: Active/Remission status: in remission of unspecified degree Qualified Code(s): F31.70 - Bipolar disorder, currently in remission, most recent episode unspecified Code(s): F31.9 - Bipolar disorder, unspecified Status: Acute Assessment and Plan: Patient on Lamictal and sertraline (7) HTN (hypertension): Qualifiers: Hypertension type: essential hypertension Qualified Code(s): I10 - Essential (primary) hypertension Code(s): I10 - Essential (primary) hypertension Status: Chronic Assessment and Plan: lasix dc due to JERRY (8) Diastolic dysfunction: Code(s): I51.89 - Other ill-defined heart diseases Status: Acute Assessment and Plan: Acute on chronic HFpEF dc lasix due to JERRY cardiology team on board (9) Obstructive sleep apnea on CPAP: Code(s): G47.33 - Obstructive sleep apnea (adult) (pediatric); Z99.89 - Dependence on other enabling machines and devices Status: Acute Assessment and Plan: Does not appear to be on home CPAP (10) Sepsis: Code(s): A41.9 - Sepsis, unspecified organism Status: Acute Assessment and Plan: possible pneumonia vs UTI IV antibiotics for infection. received Rocephin, vancomycin, Flagyl. continue vancomycin cefepime for possible pneumonia Blood culture positive for MRSA Follow-up blood culture results TTE neg for endocarditis pulmonary team on board Respiratory pathogen panel positive for parainfluenza 3 Cefepime for possible healthcare associated pneumonia. D 01/27 Repeat chest x-ray with some improvement in left lower lung zone Worsen leukocytosis today. Will recheck UA and chest x-ray (11) NSTEMI (non-ST elevated myocardial infarction): Code(s): I21.4 - Non-ST elevation (NSTEMI) myocardial infarction Status: Acute Assessment and Plan: Troponin: 0.287-0.364 Likely demand ischemia monitor for now Cardiology team on board Plan DVT prophylaxis on Sq Heparin Subjective Date/time seen: 02/18/25 12:36 Interval history: per HPI: 69-year-old female history of bipolar 1, hypertension, brain tumor, iron deficiency anemia, CKD and SIMEON presents to the hospital with altered [facility] status [facility] a jail. HPI is limited due to altered mental status. Per the the patient had a fall was found to have a brain bleed and was painting sferred to [facility] and then discharged to rehab and then sent to a jail due to not progressing in rehab. She has been wheelchair-bound. He states that over the last couple days she became more and more withdrawn. He is unaware of her having another fall Lab work in the ED shows leukocytosis at 15.4, hemoglobin of 11.9, sodium of 133, potassium a less than 2, creatinine of 3.36 baseline being 1, GFR 12, AST 57 ALT 46, UA with 2+ leukocyte esterase moderate squamous cells negative nitrates and yeast, and C diff is negative 02/09/25 Patient was seen and examined at [facility]. She is alert oriented to herself and place. Denies any chest pain, shortness of breath, abd pain, N/V. Blood culture positive for Gram-positive cocci in cluster. Antibiotics were changed to Rocephin, vancomycin and Flagyl. Discussed with pharmacy team. Repeat blood culture was ordered. Renal ultrasound unremarkable 02/10/25 Patient was seen examined with. She is oriented to her name only. Denies any chest pain, shortness of breath, abdominal pain, nausea vomiting WBC improved to 17.1. Potassium 3.3. Creatinine improved to 1.75 Blood culture positive for MRSA. Will get echo. Continue with vancomycin 02/11/25 Patient was seen and examined at bedside. She is alert oriented to her name and place denies any chest pain, shortness off breath, abdominal pain, nausea vomiting. No acute event overnight. Kidney function improving. WBC 17.4. Echo pending. Repeat blood culture since 02/09/2025 has been negative 02/12/25 Patient was seen examined at bedside. She isn't more awake oriented today. Denies any chest pain, shortness to stop breath, abdominal pain, nausea vomiting. Continue with vancomycin. Echo pending. 02/13/25 Patient was seen examined at bedside. She is more alert oriented today. She is on 2 L oxygen. Pulmonary and cardiology team on board. Plan for modified barium swallow. Continue with Lasix continue with vancomycin and cefepime. TTE negative for vegetation. per cardiology we need to repeat B/C and then decide 02/14/25 Patient was seen and examined at bedside. She is alert oriented to her name and place denies any chest pain, shortness off breath, abdominal pain, nausea vomiting. No acute event overnight. patient has worsening kidney function will dc lasix. her breathing improving and sat is 94% on 1 lit O2 02/15/25 Patient was seen and examined at bedside. she is confused today. denies any chest pain,SOB,abd pain, nausea vomiting. O2 sat has been stable at night on 3 lit o2. continue cefepime and vancomycin. 02/16/2025: Patient remains confused. Labs reviewed. Discussed with nursing staff. Remains afebrile today 01/22: Patient refusing medications. Refuses to talk to me today. Labs reviewed. 01/22: No overnight events. Patient refusing to eat takes some medications. Feeling better. Labs reviewed. Review of Systems Review of Systems: 12 systems were reviewed and are negativ e except for as per HPI. Exam Narrative: General: Chronically ill, appears older than stated age confused HEENT: normocephalic, atraumatic. Mucous membranes moist. EOMI, PERRLA Respiratory: Coarse breath sounds bilaterally no respiratory distress Cardiovascular: Regular rate and rhythm, normal S1-S2 upon ascultation. Abdomen: Soft, round, no pulsatile masses, nondistended and nontender. Extremities: No cyanosis, clubbing, Pulses are palpable 2/2. Neuro: More awake however non cooperative oriented to self. PERRLA. Cranial nerves 2-12 intact without focal deficit. Skin: Warm, dry, and intact, without rash, erythema, or lesion. Psych: Non cooperative Objective Data Vital Signs Vital Signs: Vital Signs - 24 hr 02/17/25 14:20 02/17/25 16:00 02/17/25 16:00 Temperature 98.0 F Pulse Rate 70 76 82 Respiratory Rate 16 18 Blood Pressure 136/61 Pulse Oximetry 100 Oxygen Delivery Oxygen Flow Rate Fraction of Inspired Oxygen 02/17/25 20:00 02/17/25 20:09 02/17/25 20:11 Temperature Pulse Rate 72 72 Respiratory Rate 20 20 Blood Pressure Pulse Oximetry 99 97 Oxygen Delivery Nasal Cannula Nasal Cannula Oxygen Flow Rate 1 2 Fraction of Inspired Oxygen 24 02/17/25 20:18 02/17/25 22:20 02/17/25 22:37 Temperature 98.3 F Pulse Rate 73 74 84 Respiratory Rate 20 18 20 Blood Pressure 130/77 Pulse Oximetry 97 97 Oxygen Delivery Nasal Cannula Oxygen Flow Rate 1 Fraction of Inspired Oxygen 24 02/18/25 00:00 02/18/25 04:00 02/18/25 06:00 Temperature 97.8 F Pulse Rate 85 76 79 Respiratory Rate 18 Blood Pressure 138/76 Pulse Oximetry 99 Oxygen Delivery Oxygen Flow Rate Fraction of Inspired Oxygen 02/18/25 08:23 02/18/25 08:23 02/18/25 08:25 Temperature Pulse Rate 64 74 Respiratory Rate 20 Blood Pressure Pulse Oximetry Oxygen Delivery Room Air Oxygen Flow Rate Fraction of Inspired Oxygen 02/18/25 08:26 02/18/25 09:23 Temperature Pulse Rate 74 80 Respiratory Rate 20 Blood Pressure Pulse Oximetry 97 Oxygen Delivery Nasal Cannula Oxygen Flow Rate 1 Fraction of Inspired Oxygen 24 Intake/Output Intake/Output: Intake & Output 02/15/25 02/16/25 02/17/25 02/18/25 23:59 23:59 23:59 23:59 Intake Total 2531 205 7480 272 Output Total 400 550 950 600 Balance 660 -450 80 -328 Meds/Results Medications: Active Medications Generic Name Dose Route Start Last Admin Trade Name Freq PRN Reason Stop Dose Admin Acetaminophen 650 mg 02/07/25 15:41 02/07/25 20:34 Acetaminophen 325 Mg Tablet PO 650 mg Q4H PRN Administration Mild Pain (1-3) or Fever Artificial Tears 1 drop 02/08/25 09:32 Artificial Tears Ophth Soln 15 Ml Bottle EACH EYE 03/10/25 09:31 PRN PRN dry eye(s) Carvedilol 18.75 mg 02/08/25 09:00 02/18/25 09:23 Carvedilol 6.25 Mg Tablet PO 18.75 mg Q12HR CARLIN Administration Duloxetine HCl 60 mg 02/08/25 09:00 02/18/25 09:23 Duloxetine Hcl 60 Mg Capsule. PO 60 mg Q12HR CARLIN Administration Heparin Sodium (Porcine) 5,000 units 02/13/25 14:00 02/18/25 05:05 Heparin Sodium 5,000 Units/Ml Vial SUB-Q 5,000 units Q8HR CARLIN Administration Cefepime HCl 2 gm in 50 mls @ 100 mls/hr 02/13/25 04:00 02/18/25 05:39 Maxipime 2 Gm/Ns 50 Ml IVPB Infused Q12H CARLIN Infusion Vancomycin HCl 500 mg in 100 mls @ 100 mls/hr 02/18/25 09:00 02/18/25 09:22 Vancomycin 500 Mg/Ns 100 Ml IVPB 100 mls/hr Q24H CARLIN Administration Lamotrigine 200 mg 02/08/25 09:00 02/18/25 09:23 Lamotrigine 100 Mg Tablet PO 200 mg Q12HR CARLIN Administration Levalbuterol HCl 1.25 mg 02/11/25 20:00 02/18/25 08:23 Levalbuterol Neb 1.25 Mg/3 Ml INHALATION 1.25 mg Q6HRT CARLIN Administration Loperamide HCl 2 mg 02/07/25 18:18 02/12/25 14:35 Loperamide Hcl 2 Mg Capsule PO 2 mg PRN PRN Administration Diarrhea Lorazepam 1 mg 02/09/25 15:15 02/15/25 10:49 Lorazepam (*Crx) 1 Mg Tablet PO 1 mg Q8H PRN Administration Anxiety Ondansetron HCl 4 mg 02/07/25 15:41 02/16/25 12:09 Ondansetron Inj 4 Mg/2 Ml Vial IV PUSH 4 mg Q4H PRN Administration Nausea Sertraline HCl 100 mg 02/08/25 09:00 02/18/25 09:22 Sertraline Hcl 50 Mg Tablet PO 100 mg DAILY CARLIN Administration Radiology Results: ITS Impressions Head CT 02/07/25 18:39 Impression: No acute intracranial hemorrhage or suspicious mass effect. Renal Ultrasound 02/08/25 19:23 IMPRESSION: No hydronephrosis or renal calculi. Parenchyma of the bilateral kidneys are unremarkable. Modified Barium Swallow 02/14/25 11:22 IMPRESSION: Mild pharyngeal dysphagia with laryngeal penetration without aspiration. Please correlate with speech pathologist findings and specific feeding recommendations. Chest X-Ray 02/17/25 07:21 IMPRESSION: 1. Patchy bilateral lung disease which could represent pneumonia and/or atelectasis with some improvement in the left lower lung zone. Labs Labs: Laboratory Results - last 24 hr 02/13/25 02/18/25 02/18/25 06:39 07:37 07:38 WBC 20.8 H RBC 3.70 L Hgb 11.8 L Hct 35.6 L MCV 96.2 MCH 31.9 MCHC 33.1 RDW 18.5 H Plt Count 465 H MPV 8.9 Immature Gran % (Auto) Not Reportable Neut % (Auto) Not Reportable Lymph % (Auto) Not Reportable [place] % (Auto) Not Reportable Eos % (Auto) Not Reportable Baso % (Auto) Not Reportable Lymph # (Auto) Not Reportable [place] # (Auto) Not Reportable Eos # (Auto) Not Reportable Baso # (Auto) Not Reportable Abs Immat Gran (auto) Not Reportable Absolute Neuts (auto) Not Reportable Absolute Nucleated RBC Not Reportable Total Counted 100 Neutrophils % (Manual) 90 H Band Neutrophils % 2 Lymphocytes % (Manual) 3 L Monocytes % (Manual) 5 Nucleated RBC % Not Reportable Abs Neuts (Manual) 19.13 H Abs Lymphs (Manual) 0.62 L Abs Monocytes (Manual) 1.04 H Atypical Lymphocytes Present Platelet Estimate Increased Anisocytosis 1+ Schistocytes None seen Sodium 135 L Potassium 3.5 Chloride 107 Carbon Dioxide 18 L Anion Gap 10 BUN 34 H Creatinine 2.20 H Estim Creat Clear Calc 27 Estimated GFR 22 L Glucose 104 Calcium 8.6 Magnesium 2.3 Total Bilirubin 0.7 AST 65 H ALT 30 Alkaline Phosphatase 164 H Total Protein 6.2 L Albumin 2.7 L Vancomycin Trough 19.2 Mycoplasma pneumon IgM 43
[2025-02-18 14:32] LABS: Add Urine Microscopic? YES; Appearance Urine Turbid (Clear); Budding Yeast Urine Present /hpf; Glucose Urine UA Negative (Negative); Leukocyte Esterase Ur 2+ LEU/UL (Negative); Need Manual Microscopic Reviewed; Nitrate Urine Negative (Negative); Non Pathogenic Casts >20; Specific Grav Ur 1.020 (1.001-1.035)
[2025-02-19] VITALS (17 sets, daily range): BP systolic 127–152; BP diastolic 67–71; PULSE 66–81; RESP 18–24; TEMP 35.9–36.8; O2SAT 96–100
[2025-02-19] MEDS: CEFEPIME 2 GM/NS 50 ML 2 GM/50 ML BAG IVPB (05:01)
[2025-02-19 06:25] LABS: Hematocrit 35.3 % (37.0-47.0); Hemoglobin 11.5 g/dL (12.0-15.0); Immature Granulocyte Percent A 7.1 % (0-0.5); Lymphocytes Absolute Auto 1.24 K/mm3 (0.9-3.2); Mean Corpuscular HGB Conc 32.6 g/dl (32-36); Mean Corpuscular Hemoglobin 31.7 pg (26-34); Mean Corpuscular Volume 97.2 fl (80-100); Nucleated Red Blood Cells Absolute Auto 0.000 K/mm3 (0.0-0.012); Nucleated Red Blood Cells Perc 0.0 % (0.0-0.2); Platelet Count Result 434 k/mm3 (150-375); Red Blood Count 3.63 M/mm3 (4.2-5.4); White Blood Count 18.1 K/mm3 (4.5-10.0)
[2025-02-19 06:39] LABS: Alanine Aminotransferase 35 U/L (6-35); Albumin Level 2.7 g/dL (3.5-5.1); Alkaline Phosphatase 194 U/L (38-126); Anion Gap 10 mmol/L (4-12); Aspartate Amino Transferase 74 U/L (14-36); Bilirubin,Total 0.7 mg/dL (0.2-1.3); Blood Urea Nitrogen 37 mg/dL (7-17); Calcium 8.8 mg/dL (8.4-10.2); Carbon Dioxide 18 mmol/L (22-30); Chloride 108 mmol/L (98-107); Estimated CRCL calculation 25 ml/min; Estimated Glomerular Filt Rate 20; Glucose 93 mg/dL (65-110); Magnesium 2.4 mg/dL (1.6-2.3); Potassium 3.5 mmol/L (3.4-5.0); Sodium 136 mmol/L (137-145); Total Protein 6.1 g/dL (6.3-8.2)
[2025-02-19] MEDS: DULoxetine HCL 60 MG CAPSULE.DR PO (09:30)
[2025-02-19] MEDS: VANCOMYCIN 500 MG/NS 100 ML 500 MG/100 ML BAG 100 MG IVPB (09:30)
[2025-02-19] MEDS: SERTRALINE HCL 50 MG TABLET 100 MG PO (09:31)
--- NOTE | 2025-02-19 09:49 | P.PNIM_ITS ---
Progress Note: A&P Assessment and Plan (1) Altered mental status: Code(s): R41.82 - Altered mental status, unspecified Status: Acute Assessment and Plan: Infection verses stroke versus electrolyte imbalance versus other CT head no acute findings Replete electrolytes as needed IV antibiotics for infection. vancomycin, and cefepime Blood culture positive for MRSA. Continue vancomycin TTE neg for endocarditis. per cardiology if repeat B/C neg no need for QI Repeat blood culture since 02/09/2025 has been negative Follow-up blood culture results Holding sedated of medications until more alert PT/OT/ST Hold lorazepam (2) JERRY (acute kidney injury): Code(s): N17.9 - Acute kidney failure, unspecified Status: Acute Assessment and Plan: IV fluids for hydration worsening lasix on hold Repeat BMP US renal unremarkable Creatinine is stable but elevated than baseline. Vanc level elevated and likely indicated above vanc toxicity Vanc dose has been adjusted Continue to trend creatinine Will consult Nephrology due to increasing creatinine Will get renal ultrasound Urinalysis with urine casts East and WBC 51-100 noted. Cultures pending. Will add fluconazole daily (3) Acute hypokalemia: Code(s): E87.6 - Hypokalemia Status: Acute Assessment and Plan: replaced, continue monitoring (4) UTI (urinary tract infection): Qualifiers: Urinary tract infection type: acute cystitis Hematuria presence: without hematuria Qualified Code(s): N30.00 - Acute cystitis without hematuria Code(s): N39.0 - Urinary tract infection, site not specified Status: Acute Assessment and Plan: Could be causing altered mental status received rocephin Currently on cefepime for healthcare associated pneumonia. Complete 7 days course started 02/13/2025 UA this is suggestive of UTI. Yeast present. Will add fluconazole (5) Diarrhea: Code(s): R19.7 - Diarrhea, unspecified Status: Acute Assessment and Plan: Likely cause of acute dehydration and hypokalemia Negative for C diff Imodium (6) Bipolar disorder: Qualifiers: Active/Remission status: in remission of unspecified degree Qualified Code(s): F31.70 - Bipolar disorder, currently in remission, most recent episode unspecified Code(s): F31.9 - Bipolar disorder, unspecified Status: Acute Assessment and Plan: Patient on Lamictal and sertraline (7) HTN (hypertension): Qualifiers: Hypertension type: essential hypertension Qualified Code(s): I10 - Essential (primary) hypertension Code(s): I10 - Essential (primary) hypertension Status: Chronic Assessment and Plan: lasix dc due to JERRY (8) Diastolic dysfunction: Code(s): I51.89 - Other ill-defined heart diseases Status: Acute Assessment and Plan: Acute on chronic HFpEF dc lasix due to JERRY cardiology team on board (9) Obstructive sleep apnea on CPAP: Code(s): G47.33 - Obstructive sleep apnea (adult) (pediatric); Z99.89 - Dependence on other enabling machines and devices Status: Acute Assessment and Plan: Does not appear to be on home CPAP (10) Sepsis: Code(s): A41.9 - Sepsis, unspecified organism Status: Acute Assessment and Plan: possible pneumonia vs UTI IV antibiotics for infection. received Rocephin, vancomycin, Flagyl. continue vancomycin cefepime for possible pneumonia Blood culture positive for MRSA Follow-up blood culture results TTE neg for endocarditis pulmonary team on board Respiratory pathogen panel positive for parainfluenza 3 Cefepime for possible healthcare associated pneumonia. D 01/27 Repeat chest x-ray with some improvement in left lower lung zone Worsen leukocytosis today. Will recheck UA and chest x-ray (11) NSTEMI (non-ST elevated myocardial infarction): Code(s): I21.4 - Non-ST elevation (NSTEMI) myocardial infarction Status: Acute Assessment and Plan: Troponin: 0.287-0.364 Likely demand ischemia monitor for now Cardiology team on board Plan DVT prophylaxis on Sq Heparin Subjective Date/time seen: 02/19/25 09:49 Interval history: per HPI: 69-year-old female history of bipolar 1, hypertension, brain tumor, iron deficiency anemia, CKD and SIMEON presents to the hospital with altered mental status from a [facility]. HPI is limited due to altered mental status. Per the the patient had a fall was found to have a brain bleed and was transferred to [facility] and then discharged to rehab and then sent to a prison due to not progressing in rehab. She has been wheelchair- bound. He states that over the last couple days she became more and more withdrawn. He is unaware of her having another fall Lab work in the ED shows leukocytosis at 15.4, hemoglobin of 11.9, sodium of 133, potassium a less than 2, creatinine of 3.36 baseline being 1, GFR 12, AST 57 ALT 46, UA with 2+ leukocyte esterase moderate squamous cells negative nitrates and yeast, and C diff is negative 02/09/25 Patient was seen and examined at [facility]. She is alert oriented to herself and place. Denies any chest pain, shortness of breath, abd pain, N/V. Blood culture positive for Gram-positive cocci in cluster. Antibiotics were changed to Rocephin, vancomycin and Flagyl. Discussed with pharmacy team. Repeat blood culture was ordered. Renal ultrasound unremarkable 02/10/25 Patient was seen examined with. She is oriented to her name only. Denies any chest pain, shortness of breath, abdominal pain, nausea vomiting WBC improved to 17.1. Potassium 3.3. Creatinine improved to 1.75 Blood culture positive for MRSA. Will get echo. Continue with vancomycin 02/11/25 Patient was seen and examined at bedside. She is alert oriented to her name and place denies any chest pain, shortness off breath, abdominal pain, nausea vomiting. No acute event overnight. Kidney function improving. WBC 17.4. Echo pending. Repeat blood culture since 02/09/2025 has been negative 02/12/25 Patient was seen examined at bedside. She isn't more awake oriented today. Denies any chest pain, shortness to stop breath, abdominal pain, nausea vomiting. Continue with vancomycin. Echo pending. 02/13/25 Patient was seen examined at bedside. She is more alert oriented today. She is on 2 L oxygen. Pulmonary and cardiology team on board. Plan for modified barium swallow. Continue with Lasix continue with vancomycin and cefepime. TTE negative for vegetation. per cardiology we need to repeat B/C and then decide 02/14/25 Patient was seen and examined at bedside. She is alert oriented to her name and place denies any chest pain, shortness off breath, abdominal pain, nausea vomiting. No acute event overnight. patient has worsening kidney function will dc lasix. her breathing improving and sat is 94% on 1 lit O2 02/15/25 Patient was seen and examined at bedside. she is confused today. denies any chest pain,SOB,abd pain, nausea vomiting. O2 sat has been stable at night on 3 lit o2. continue cefepime and vancomycin. 02/16/2025: Patient remains confused. Labs reviewed. Discussed with nursing staff. Remains afebrile today 01/22: Patient refusing medications. Refuses to talk to me today. Labs reviewed. 01/22: No overnight events. Patient refusing to eat takes some medications. Feeling better. Labs reviewed. 02/19/2025: No overnight events. Patient more conversant. Cough and breathing getting better Exam Narrative: General: Chronically ill, appears older than stated age not in acute distress HEENT: normocephalic, atraumatic. Mucous membranes moist. EOMI, PERRLA Respiratory: Coarse breath sounds bilaterally no respiratory distress Cardiovascular: Regular rate and rhythm, normal S1-S2 upon ascultation. Abdomen: Soft, round, no pulsatile masses, nondistended and nontender. Extremities: No cyanosis, clubbing, Pulses are palpable 2/2. Neuro: More awake however non cooperative oriented to self. PERRLA. Cranial nerves 2-12 intact without focal deficit. Skin: Warm, dry, and intact, without rash, erythema, or lesion. Psych: Non cooperative Objective Data Vital Signs Vital Signs: Vital Signs - 24 hr 02/18/25 12:00 02/18/25 13:39 02/18/25 15:36 Temperature 98.2 F Pulse Rate 75 77 81 Respiratory Rate 20 16 Blood Pressure 117/45 L Pulse Oximetry 98 Oxygen Delivery Oxygen Flow Rate Fraction of Inspired Oxygen 02/18/25 20:00 02/18/25 20:00 02/18/25 21:20 Temperature Pulse Rate 86 83 Respiratory Rate 30 H Blood Pressure Pulse Oximetry 96 Oxygen Delivery Nasal Cannula Oxygen Flow Rate 2 Fraction of Inspired Oxygen 02/18/25 22:15 02/19/25 00:00 02/19/25 04:00 Temperature 97.6 F Pulse Rate 65 81 70 Respiratory Rate 18 Blood Pressure 129/65 Pulse Oximetry 96 Oxygen Delivery Oxygen Flow Rate Fraction of Inspired Oxygen 02/19/25 04:13 02/19/25 06:00 02/19/25 08:23 Temperature 97.7 F Pulse Rate 68 73 Respiratory Rate 24 H 18 20 Blood Pressure 132/71 Pulse Oximetry 100 Oxygen Delivery Oxygen Flow Rate Fraction of Inspired Oxygen 02/19/25 09:31 Temperature Pulse Rate 77 Respiratory Rate Blood Pressure Pulse Oximetry Oxygen Delivery Oxygen Flow Rate Fraction of Inspired Oxygen Intake/Output Intake/Output: Intake & Output 02/16/25 02/17/25 02/18/25 02/19/25 23:59 23:59 23:59 23:59 Intake Total 100 1030 522 250 Output Total 550 950 750 600 Balance -450 80 -228 -350 Meds/Results Medications: Active Medications Generic Name Dose Route Start Last Admin Trade Name Freq PRN Reason Stop Dose Admin Acetaminophen 650 mg 02/07/25 15:41 02/07/25 20:34 Acetaminophen 325 Mg Tablet PO 650 mg Q4H PRN Administration Mild Pain (1-3) or Fever Artificial Tears 1 drop 02/08/25 09:32 Artificial Tears Ophth Soln 15 Ml Bottle EACH EYE 03/10/25 09:31 PRN PRN dry eye(s) Carvedilol 18.75 mg 02/08/25 09:00 02/19/25 09:31 Carvedilol 6.25 Mg Tablet PO 18.75 mg Q12HR CARLIN Administration Duloxetine HCl 60 mg 02/08/25 09:00 02/19/25 09:30 Duloxetine Hcl 60 Mg Capsule.Dr PO 60 mg Q12HR CARLIN Administration Heparin Sodium (Porcine) 5,000 units 02/13/25 14:00 02/19/25 05:01 Heparin Sodium 5,000 Units/Ml Vial SUB-Q 5,000 units Q8HR CARLNI Administration Vancomycin HCl 500 mg in 100 mls @ 100 mls/hr 02/18/25 09:00 02/19/25 09:30 Vancomycin 500 Mg/Ns 100 Ml IVPB 100 mls/hr Q24H CARLIN Administration Cefepime HCl 2 gm in 50 mls @ 100 mls/hr 02/20/25 05:00 Maxipime 2 Gm/Ns 50 Ml IVPB Q24H CARLIN Lamotrigine 200 mg 02/08/25 09:00 02/19/25 09:31 Lamotrigine 100 Mg Tablet PO 200 mg Q12HR CARLIN Administration Levalbuterol HCl 1.25 mg 02/11/25 20:00 02/19/25 08:23 Levalbuterol Neb 1.25 Mg/3 Ml INHALATION 1.25 mg Q6HRT CARLIN Administration Loperamide HCl 2 mg 02/07/25 18:18 02/12/25 14:35 Loperamide Hcl 2 Mg Capsule PO 2 mg PRN PRN Administration Diarrhea Lorazepam 1 mg 02/09/25 15:15 02/15/25 10:49 Lorazepam (*Crx) 1 Mg Tablet PO 1 mg Q8H PRN Administration Anxiety Ondansetron HCl 4 mg 02/07/25 15:41 02/16/25 12:09 Ondansetron Inj 4 Mg/2 Ml Vial IV PUSH 4 mg Q4H PRN Administration Nausea Sertraline HCl 100 mg 02/08/25 09:00 02/19/25 09:31 Sertraline Hcl 50 Mg Tablet PO 100 mg DAILY CARLIN Administration Radiology Results: ITS Impressions Head CT 02/07/25 18:39 Impression: No acute intracranial hemorrhage or suspicious mass effect. Renal Ultrasound 02/08/25 19:23 IMPRESSION: No hydronephrosis or renal calculi. Parenchyma of the bilateral kidneys are unremarkable. Modified Barium Swallow 02/14/25 11:22 IMPRESSION: Mild pharyngeal dysphagia with laryngeal penetration without aspiration. Please correlate with speech pathologist findings and specific feeding recommendations. Chest X-Ray 02/18/25 13:16 Impression: Patchy bilateral airspace disease could reflect pulmonary/atelectasis versus bilateral pneumonia. Correlate clinically. Small bilateral pleural effusions. Labs Labs: Laboratory Results - last 24 hr 02/18/25 02/19/25 13:52 05:41 WBC 18.1 H RBC 3.63 L Hgb 11.5 L Hct 35.3 L MCV 97.2 MCH 31.7 MCHC 32.6 RDW 18.9 H Plt Count 434 H MPV 8.9 Immature Gran % (Auto) 7.1 H Neut % (Auto) 78.1 H Lymph % (Auto) 6.8 L [place] % (Auto) 6.5 Eos % (Auto) 0.6 Baso % (Auto) 0.9 Lymph # (Auto) 1.24 [place] # (Auto) 1.2 H Eos # (Auto) 0.1 Baso # (Auto) 0.2 H Abs Immat Gran (auto) 1.28 H Absolute Neuts (auto) 14.2 H Absolute Nucleated RBC 0.000 Nucleated RBC % 0.0 Sodium 136 L Potassium 3.5 Chloride 108 H Carbon Dioxide 18 L Anion Gap 10 BUN 37 H Creatinine 2.36 H Estim Creat Clear Calc 25 Estimated GFR 20 L Glucose 93 Calcium 8.8 Magnesium 2.4 H Total Bilirubin 0.7 AST 74 H ALT 35 Alkaline Phosphatase 194 H Total Protein 6.1 L Albumin 2.7 L Urine Color Yellow Urine Appearance Turbid H Urine pH 5.0 Ur Specific [place] 1.020 Urine Protein 2+ H Urine Glucose (UA) Negative Urine Ketones Trace H Ur Blood (Man) 2+ H Urine Nitrate Negative Urine Bilirubin Negative Urine Urobilinogen 0.2 Ur Leukocyte Esterase 2+ H Add Ur Microanalysis Reviewed Urine RBC 6-10 H Urine WBC 51-100 Ur Squamous Epith Cells Few Urine Bacteria None seen Urine Casts >20 Hyaline Casts 0-2 Urine Yeast (Budding) Present H
--- NOTE | 2025-02-19 11:30 | P.CONNP_ITS ---
Assessment and Plan Assessment and plan (1) Acute kidney injury: Code(s): N17.9 - Acute kidney failure, unspecified Status: Acute Assessment and Plan: * as noted on admission (creatinine 3.63mg/dl) * interestingly, associated with significant hypokalemia * transiently improved to 1.27mg/dl (on 02/12) * then started to progressively deteriorate again on 02/13 * suspect multifactorial etiology: * prerenal factors (poor oral intake) * infection/sepsis (bacteremia + UTI) * diuretic use * antibiotics (vancomycin toxicity?) * other? * hypokalemia resolved * check urine studies, renal ultrasound, and CPK * on trial of IVFs -- watch volume status * follow repeat labs and UOP (2) Stage 3 chronic kidney disease: Code(s): N18.30 - Chronic kidney disease, stage 3 unspecified Status: Chronic Assessment and Plan: * baseline creatinine runs ~ 1.0 - 1.5mg/dl * presumably due to hypertension, SIMEON, obesity, and age-related change (3) Altered mental status: Qualifiers: Altered mental status type: delirium Qualified Code(s): R41.0 - Disorientation, unspecified Code(s): R41.82 - Altered mental status, unspecified Status: Acute Assessment and Plan: * etiology not clear * possible issues include: * infection (bacteremia + fungal UTI) * previous SDH * electrolyte imbalance (low K+ but corrected) * psychiatric (known bipolar disorder) * CT of head without any acute findings * holding sedating medications * ongoing PT/OT/ST * follow trend of mentation (4) Sepsis: Code(s): A41.9 - Sepsis, unspecified organism Status: Acute Assessment and Plan: * due to several issues: * blood culture (1 set out of 2) with MRSA from 02/07 * possible pneumonia imaging (completed course of antibiotics) * fungal UTI * evaluation to date noted: * repeat blood cultures (620 + 02/14) with no growth * respiratory pathogen panel positive for parainfluenza 3 * continue supportive therapy (5) MRSA bacteremia: Code(s): R78.81 - Bacteremia; B95.62 - Methicillin resistant Staphylococcus aureus infection as the cause of diseases classified elsewhere Status: Acute Assessment and Plan: * as noted by culture data: * 1 out of 2 sets noted on 02/07 * repeat cultures to date negative * on vancomycin (6) Bipolar disorder: Qualifiers: Active/Remission status: currently active Code(s): F31.9 - Bipolar disorder, unspecified Status: Acute Assessment and Plan: * currently on Lamictal and sertraline * however, not really taking any oral medications (7) HTN (hypertension): Qualifiers: Hypertension type: essential hypertension Qualified Code(s): I10 - Essential (primary) hypertension Code(s): I10 - Essential (primary) hypertension Status: Chronic Assessment and Plan: * reasonable control * follow trend of hemodyamics (8) Diastolic dysfunction: Code(s): I51.89 - Other ill-defined heart diseases Status: Acute Assessment and Plan: * evidence of exacerbation earlier in hospital course * however, off lasix due to #1 * follow volume status closely I will continue to follow the patient with you while she remains hospitalized and make further recommendations as deemed necessary. Thank you for allowing me to participate in the care of this patient. L History of Present Illness Reason for Consult Consult date: 02/19/25 Reason for consult: acute renal failure (on chronic kidney disease) Chief Complaint Chief complaint: ENTERITIS,HYPOKALEMIA,JERRY History of Present Illness Narrative: A great majority of the history that I have obtained is review of the electronic medical record as well as discussion with the physician/nurses involved in the patient's care as is difficult to get a full and complete history from the patient due to her current altered mentation. The patient is a 69-year-old female with a past medical history as outlined below who presented to [facility] Emergency Room with altered mental status from her nursing facility. The patient's history is complicated by recent subdural bleed in late December of 2024 the required transfer to [facility] for further management. Her clinical condition stabilized following this issue and she was subsequently discharged to rehab for ongoing physical and occupational therapy. However, she apparently did not really progress in rehab and seem to be somewhat wheelchair dependent and so was subsequently discharged to a nursing facility for ongoing treatment for her chronic medical issues. He states that over the last few days while at the nursing facility she has become more and more withdrawn to the point where she barely speaks there is no report of another fall or any other head injury since her transfer to the nursing facility. However, given her worsening mentation as mentioned, she was transported to the emergency room for further assessment. Workup and evaluation emergency room demonstrated the patient be hemodynamically stable and in no acute distress. Routine blood work demonstrated elevated white blood count of 15.4, hemoglobin 11.9, sodium 133, potassium less than 2, creatinine 3.36, AST 57, ALT 46, and a urinalysis somewhat suggestive of urinary tract infection with 2+ leukocyte esterase and evidence of yeast. She apparently had some diarrhea in the emergency room so C diff toxin assay was done which was found to be negative. Given her altered mental status in association with an elevated white blood cell count and possible urinary tract infection along with a possible GI infection with evidence of acute kidney injury/ acute renal failure, appropriate cultures were obtained and she was initiated on IV fluids as well as IV antibiotics and subsequently admitted to the hospital for further evaluation and therapy. Since her admission, her mental status has not really significantly improved. According to nursing, there are times where she completely ignores questions being asked of her and at other times she will just simply nods her head when questions are asked. Her culture data is significant for MRSA bacteremia (1/2 sets of blood cultures) and her urine culture with Val. She has been on appropriate antibiotics and antifungal therapy for these infections. Her renal function improved with IV fluid hydration but then has recently started deteriorate once again. Renal consultation was requested due to her acute kidney injury/acute renal failure on top of her baseline chronic kidney disease. From review her records, her baseline creatinine runs around 1.0 - 1.5 mg/dL. Her creatinine on admission 3.63 mg/dL and did improved to 1.27 mg/dL (on 02/12) but then since that time has been progressively worsening/declining. Further complicating matters is that the patient is refusing to take medications or any significant oral intake as well. Her baseline chronic kidney disease is thought to be secondary to her hypertension, obstructive sleep apnea, obesity, extensive smoking history, and age-related change. She still appears to be making reasonable urine output at this time. Currently, at the time my evaluation, she does not appear to be in any acute distress. Review of Systems 2 Review of Systems: As per HPI. [facility] Past Medical History Medical History CKD (chronic kidney disease) Nocturnal oxygen desaturation Body mass index (BMI) of 40.1-44.9 in adult Deafness in left ear JERED (iron deficiency anemia) Lymphedema Dysuria Fracture of left upper extremity Distal radius fracture, left July 2020 Shortness of Breath Decreased diffusion capacity History of tobacco abuse Exercise hypoxemia Brain tumor HTN (hypertension) Obstructive sleep apnea on CPAP Bipolar 1 disorder SIMEON (obstructive sleep apnea) With CPAP use GERD (gastroesophageal reflux disease) Depression Anxiety Surgical History Surgical History History of bladder suspension procedure March 2017 Hx of tonsillectomy History of brain surgery 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 She has 3 children. She is disabled. She quit smoking 5 years ago. The patient denies any marijuana alcohol or illicit drugs. 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 Primary care physician: Dr. Yannick Umanzor Code status: Full code Smoking packs per day: 1 Smoking cigarettes per day: 20.0 Years smoked: 40 Smoking pack-years: 40.00 Smoking status: Former smoker Tobacco type: cigarettes Second hand tobacco smoke exposure: No Smoking end date: 08/23/14 Alcohol intake: never Substance use: never Substance use type: does not use Do You Feel Safe in your Home?: Yes Lack of Transportation: YES Lack of Food: Never True Current Housing: I Have Housing Concerned About Future Housing: No Difficulty Paying Gas/Electric Bills: No Difficulty Paying for Meds: No Currently Unemployed: No Education: Associate Degree Difficulty w/ Childcare or Family Care: No Living arrangements: with family Additional living arrangements comments: [facility] Occupation/Education: retired Additional occupation/education comments: 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 Gender identity (if verbalized by the patient): Female Spiritual care concerns: No Meds Home Medications and Allergies Home Medications ?Medication ?Instructions ?Recorded ?Confirmed ?Type duloxetine 60 mg capsule,delayed 60 mg PO Q12H 01/21/21 02/07/25 History release (Cymbalta) Overnight Ox #1 ea 05/13/22 02/07/25 Rx albuterol sulfate 90 mcg/actuation 1 - 2 puff inhalation Q4-6H PRN 02/08/23 02/07/25 Rx aerosol inhaler shortness of breath or wheezing #8.5 grams ascorbic acid (vitamin C) 1,000 mg 1 g PO DAILY 09/08/23 02/07/25 History chewable tablet aspirin 81 mg tablet,delayed 81 mg PO DAILY 09/08/23 02/07/25 History release carvedilol 12.5 mg tablet 18.75 mg PO Q12H 09/08/23 02/07/25 History ferrous sulfate 325 mg (65 mg 325 mg PO DAILY 09/08/23 02/07/25 History iron) tablet lamotrigine 200 mg tablet 200 mg PO Q12H 09/08/23 02/07/25 History oxybutynin chloride 10 mg 10 mg PO DAILY 09/08/23 02/07/25 History tablet,extended release 24 hr sertraline 100 mg tablet 100 mg PO DAILY 09/08/23 02/07/25 History varenicline tartrate 0.03 mg/spray 0.03 mg intranasal Q12H 03/14/24 02/07/25 History metered nasal spray (Tyrvaya) acetaminophen 325 mg capsule 650 mg PO Q4H PRN pain (scale 12/20/24 02/07/25 History score 1-3) hydrochlorothiazide 12.5 mg tablet 12.5 mg PO QAM #90 tabs 01/17/25 02/07/25 Rx hydrocodone 5 mg-acetaminophen 325 1 tablet PO Q6H PRN pain #12 tabs 01/22/25 02/07/25 Rx mg tablet inulin 1.7 gram chewable tablet 3.4 g PO DAILY 02/07/25 02/07/25 History (Fiber Gummies) lorazepam 2 mg tablet 2 mg PO TID 02/07/25 02/07/25 History menthol 0.44 %-zinc oxide 20.6 % 1 applic topical DAILY PRN skin 02/07/25 02/07/25 History topical ointment (CalaSoothe) irritation polyethylene glycol 3350 17 17 g PO DAILY PRN constipation 02/07/25 02/07/25 History gram/dose oral powder polyvinyl alcohol-povidone 0.5 1 drp EACH EYE Q60M PRN dry eye(s) 02/07/25 02/07/25 History %-0.6 % eye drops (Artificial Tears (polyvinyl alcohol/povidone)) semaglutide (weight loss) 1 mg/0.5 1 mg subcut .biweekly 02/07/25 02/07/25 History mL subcutaneous pen injector (Wegovy) sennosides 8.6 mg capsule (senna) 8.6 mg PO HS 02/07/25 02/07/25 History Allergies Allergy/AdvReac Type Severity Reaction Status Date / Time acyclovir (From Zovirax) Allergy Severe Hives Verified 02/07/25 18:44 Iodinated Contrast Media Allergy Intermediate Rash Verified 02/07/25 18:44 omeprazole (From Prilosec) AdvReac Intermediate hyperventil Verified 02/07/25 18:44 ate Vital Signs Vital Signs Temp Pulse Resp BP Pulse Ox O2 Del Method O2 Flow Rate 02/19/25 09:31 77 02/19/25 08:23 20 02/19/25 08:00 72 02/19/25 08:00 98 Nasal Cannula 2 02/19/25 06:00 97.7 F 73 18 132/71 100 02/19/25 04:13 68 24 H 02/19/25 04:00 70 02/19/25 00:00 81 02/18/25 22:15 97.6 F 65 18 129/65 96 02/18/25 21:20 83 30 H 02/18/25 20:00 86 02/18/25 20:00 96 Nasal Cannula 2 Exam 2 Narrative: GENERAL APPEARANCE: somewhat ill -appearing female in no acute distress HEENT: normocephalic, atraumatic, normal conjunctiva and sclera, nares patient NECK: no lymphadenopathy, thyromegaly, or JVD MOUTH: normal lips, teeth, and gums CARDIOVASCULAR: RRR, normal S1 and S2, no rub detected RESPIRATORY: coarse breath sounds ABDOMEN: soft, nontender, nondistended, positive bowel sounds present EXTREMITIES: no evidence of cyanosis, clubbing, 1+ edema NEUROLOGICAL: awake and alert (but non-verba and non-cooperativel); no focal deficits noted Results Lab Results 02/22/25 08:19 02/22/25 08:19 Lab results: Most recent lab results ABG pH 7.450 (7.350-7.450) 02/12/25 20:36 ABG pCO2 31.9 mmHg (35.0-45.0) L 02/12/25 20:36 ABG pO2 57.4 mmHg (80.0-100.0) L 02/12/25 20:36 ABG HCO3 21.7 mEq/l (22.0-26.0) L 02/12/25 20:36 ABG O2 Saturation 91.4 % (95.0-100.0) L 02/12/25 20:36 Calcium 8.8 mg/dL (8.4-10.2) 02/19/25 05:41 Phosphorus 3.2 mg/dL (2.5-4.5) 02/08/25 04:00 Magnesium 2.4 mg/dL (1.6-2.3) H 02/19/25 05:41
--- NOTE | 2025-02-19 11:47 | PCNFU ---
Nutrition Follow-Up Complete: Inadequate oral intake related to loss of appetite, mouth sores as evidenced by weight loss 21%/5 months Goal: PO intakes at least 50% meals and supplements Patient has limited progress towards goal. We will continue current goal. Pt current nutrition is Minced and Moist, Level 5/Heart Healthy diet with Mildly Thick liquids, Level 2. Last recorded weight is 103.9 kg, up from 97.8 kg on admit. Bowel Motility: Last reported BM 02/19 Labs Reviewed: BUN 37, Cr 2.36, Mg 2.4, Alb 2.7, Hct 35.3, Hgb 11.5 Meds Noted: Diflucan, Zoloft Skin: WNL Additional Notes:Patient oral intake has been 0% reported x 4 days. Patient has been confuse and PO intake is encouraged. Diet supplements are being providing for an additional 350 kcal and 20 gm protein. If poor po intake remains > 7 days would recommend supplement nutrition support. Monitoring intakes, weights, labs, supplement tolerance, plan of care Follow up in 3 days
--- NOTE | 2025-02-19 13:00 | PC.NURSE ---
RN called Dr Bautista in regards to oral medication ordered. No answer at this time.
--- NOTE | 2025-02-19 13:30 | PC.NURSE ---
RN called Dr Bautista in regards to oral medication ordered. No answer at this time.
--- NOTE | 2025-02-19 16:24 | PCRCNOTE ---
Window of time for administration has passed. See next scheduled administration.
--- NOTE | 2025-02-19 16:38 | PC.NURSE ---
RN attempted several times to give oral fluconazole and patient will not take medication.
[2025-02-20] VITALS (18 sets, daily range): BP systolic 121–147; BP diastolic 43–66; PULSE 69–89; RESP 12–20; TEMP 36.3–36.4; O2SAT 94–100
[2025-02-20 08:25] LABS: Hematocrit 39.8 % (37.0-47.0); Hemoglobin 12.4 g/dL (12.0-15.0); Immature Granulocyte Percent A 5.1 % (0-0.5); Lymphocytes Absolute Auto 1.30 K/mm3 (0.9-3.2); Mean Corpuscular HGB Conc 31.2 g/dl (32-36); Mean Corpuscular Hemoglobin 31.5 pg (26-34); Mean Corpuscular Volume 101.0 fl (80-100); Nucleated Red Blood Cells Absolute Auto 0.000 K/mm3 (0.0-0.012); Nucleated Red Blood Cells Perc 0.0 % (0.0-0.2); Platelet Count Result 407 k/mm3 (150-375); Red Blood Count 3.94 M/mm3 (4.2-5.4); White Blood Count 29.9 K/mm3 (4.5-10.0)
[2025-02-20 08:44] LABS: Alanine Aminotransferase 38 U/L (6-35); Albumin Level 2.8 g/dL (3.5-5.1); Alkaline Phosphatase 202 U/L (38-126); Anion Gap 13 mmol/L (4-12); Aspartate Amino Transferase 87 U/L (14-36); Bilirubin,Total 0.8 mg/dL (0.2-1.3); Blood Urea Nitrogen 42 mg/dL (7-17); Calcium 8.8 mg/dL (8.4-10.2); Carbon Dioxide 15 mmol/L (22-30); Chloride 109 mmol/L (98-107); Creatine Kinase 21 U/L (30-135); Estimated CRCL calculation 22 ml/min; Estimated Glomerular Filt Rate 18; Glucose 73 mg/dL (65-110); Magnesium 2.4 mg/dL (1.6-2.3); Potassium 4.0 mmol/L (3.4-5.0); Sodium 137 mmol/L (137-145); Total Protein 6.3 g/dL (6.3-8.2)
[2025-02-20] MEDS: SODIUM CHLORIDE 0.9% IV 1,000 ML 75 ML IV CONT ×2 (10:07→21:27)
--- NOTE | 2025-02-20 10:15 | P.PNNP_ITS ---
Progress Note: A&P Assessment and Plan (1) Acute kidney injury: Code(s): N17.9 - Acute kidney failure, unspecified Status: Acute Assessment and Plan: * as noted on admission (creatinine 3.63mg/dl) * interestingly, associated with significant hypokalemia * transiently improved to 1.27mg/dl (on 02/12) * then started to progressively deteriorate again on 02/13 * suspect multifactorial etiology: * prerenal factors (poor oral intake) * infection/sepsis (bacteremia + UTI) * diuretic use * antibiotics (vancomycin toxicity?) * other? * evaluation to date noted: * normal renal ultrasound * urine electrolytes pre-renal * urine eosinophils negative * moderate proteinuria (~ 700mg) * CPK low * on trial of IVFs -- watch volume status * follow repeat labs and UOP (2) Stage 3 chronic kidney disease: Code(s): N18.30 - Chronic kidney disease, stage 3 unspecified Status: Chronic Assessment and Plan: * baseline creatinine runs ~ 1.0 - 1.5mg/dl * presumably due to hypertension, SIMEON, obesity, and age-related change (3) Altered mental status: Code(s): R41.82 - Altered mental status, unspecified Status: Acute Assessment and Plan: * etiology not clear * possible issues include: * infection (bacteremia + fungal UTI) * previous SDH * electrolyte imbalance (low K+ but corrected) * psychiatric (known bipolar disorder) * CT of head without any acute findings * holding sedating medications * ongoing PT/OT/ST * follow trend of mentation (4) Sepsis: Code(s): A41.9 - Sepsis, unspecified organism Status: Acute Assessment and Plan: * due to several issues: * blood culture (1 set out of 2) with MRSA from 02/07 * possible pneumonia imaging (completed course of antibiotics) * fungal UTI * evaluation to date noted: * repeat blood cultures (620 + 02/14) with no growth * respiratory pathogen panel positive for parainfluenza 3 * however worsening leukocytosis noted today (02/20) * CT of C/A/P ordered * repeat cultures (blood/urine) done * antibiotics adjusted (meropenem added) * continue supportive therapy (5) MRSA bacteremia: Code(s): R78.81 - Bacteremia; B95.62 - Methicillin resistant Staphylococcus aureus infection as the cause of diseases classified elsewhere Status: Acute Assessment and Plan: * as noted by culture data: * 1 out of 2 sets noted on 02/07 * repeat cultures to date negative * on vancomycin (6) Bipolar disorder: Qualifiers: Active/Remission status: in remission of unspecified degree Qualified Code(s): F31.70 - Bipolar disorder, currently in remission, most recent episode unspecified Code(s): F31.9 - Bipolar disorder, unspecified Status: Acute Assessment and Plan: * currently on Lamictal and sertraline * however, not really taking any oral medications (7) HTN (hypertension): Qualifiers: Hypertension type: essential hypertension Qualified Code(s): I10 - Essential (primary) hypertension Code(s): I10 - Essential (primary) hypertension Status: Chronic Assessment and Plan: * reasonable control * follow trend of hemodyamics (8) Diastolic dysfunction: Code(s): I51.89 - Other ill-defined heart diseases Status: Acute Assessment and Plan: * evidence of exacerbation earlier in hospital course * however, off lasix due to #1 * follow volume status closely Will continue to follow. L Subjective Date/time seen: 02/20/25 10:15 Interval history: Follow-up for acute kidney injury/acute renal failure on chronic kidney disease. Renal function/creatinine continue to decline still making urine at this time; worsening leukocytosis noted by AM labs so antibiotics adjusted and further CT imaging ordered; still only responding to questions by just nodding her head; still not eating/drinking very well per nursing; started on IVFs at this time. Exam 2 Narrative: General: somewhat ill-appearing female in NAD Heart: normal S1 and S2; no rub Lungs: coarse breath sounds Abdomen: soft, nontender, nondistended, positive bowel sounds Extremities: no cyanosis or clubbing; no edema Skin: warm and dry Objective Data Vital Signs Vital Signs: Vital Signs Temp Pulse Resp BP Pulse Ox O2 Del Method O2 Flow Rate 02/20/25 10:07 20 94 Room Air 02/20/25 08:40 94 Room Air 02/20/25 08:15 85 20 02/20/25 08:05 87 02/20/25 08:05 87 20 02/20/25 08:05 87 20 98 Nasal Cannula 1 02/20/25 06:00 97.4 F L 89 18 122/43 L 100 02/20/25 04:00 88 02/20/25 01:50 80 20 02/20/25 01:48 72 97 02/20/25 01:41 84 20 02/20/25 00:00 83 02/19/25 22:30 98.2 F 79 18 127/67 97 02/19/25 22:26 78 97 02/19/25 20:00 76 02/19/25 20:00 96 Nasal Cannula 1 02/19/25 19:47 74 20 02/19/25 19:40 75 20 96 Nasal Cannula 1 02/19/25 19:38 75 20 02/19/25 16:00 73 02/19/25 14:00 96.7 F L 68 20 152/69 H 98 02/19/25 13:35 20 97 Nasal Cannula 2 Intake/Output Intake/Output: Intake & Output 02/17/25 02/18/25 02/19/25 02/20/25 23:59 23:59 23:59 23:59 Intake Total 1030 522 350 205 Output Total 950 750 710 450 Balance 53 -228 -360 -245 Meds/Results Medications: Active Medications Generic Name Dose Route Start Last Admin Trade Name Freq PRN Reason Stop Dose Admin Acetaminophen 650 mg 02/07/25 15:41 02/07/25 20:34 Acetaminophen 325 Mg Tablet PO 650 mg Q4H PRN Administration Mild Pain (1-3) or Fever Artificial Tears 1 drop 02/08/25 09:32 Artificial Tears Ophth Soln 15 Ml Bottle EACH EYE 03/10/25 09:31 PRN PRN dry eye(s) Carvedilol 18.75 mg 02/08/25 09:00 02/20/25 10:02 Carvedilol 6.25 Mg Tablet PO Not Given Q12HR CARLIN Duloxetine HCl 60 mg 02/08/25 09:00 02/20/25 10:03 Duloxetine Hcl 60 Mg Capsule.Dr PO Not Given Q12HR CARLIN Fluconazole 100 mg 02/19/25 09:55 02/20/25 10:03 Fluconazole 100 Mg Tablet PO Not Given QAM CARLIN Heparin Sodium (Porcine) 5,000 units 02/13/25 14:00 02/20/25 05:53 Heparin Sodium 5,000 Units/Ml Vial SUB-Q 5,000 units Q8HR CARLIN Administration Meropenem 500 mg in 100 mls @ 200 mls/hr 02/20/25 10:30 02/20/25 11:20 IVPB Infused Q12HR CARLIN Infusion Sodium Chloride 1,000 mls @ 75 mls/hr 02/20/25 10:00 02/20/25 11:20 Normal Saline Iv IV CONT 75 mls/hr .[id number] CARLIN Infusion Lamotrigine 200 mg 02/08/25 09:00 02/20/25 10:03 Lamotrigine 100 Mg Tablet PO Not Given Q12HR CARLIN Levalbuterol HCl 1.25 mg 02/11/25 20:00 02/20/25 08:05 Levalbuterol Neb 1.25 Mg/3 Ml INHALATION 1.25 mg Q6HRT CARLIN Administration Loperamide HCl 2 mg 02/07/25 18:18 02/12/25 14:35 Loperamide Hcl 2 Mg Capsule PO 2 mg PRN PRN Administration Diarrhea Lorazepam 1 mg 02/09/25 15:15 02/15/25 10:49 Lorazepam (*Crx) 1 Mg Tablet PO 1 mg Q8H PRN Administration Anxiety Ondansetron HCl 4 mg 02/07/25 15:41 02/16/25 12:09 Ondansetron Inj 4 Mg/2 Ml Vial IV PUSH 4 mg Q4H PRN Administration Nausea Sertraline HCl 100 mg 02/08/25 09:00 02/20/25 10:03 Sertraline Hcl 50 Mg Tablet PO Not Given DAILY CARLIN Vancomycin HCl 1 each 02/20/25 10:41 Vancomycin For Acute Kidney Injury IVPB PRN PRN Vancomycin Protocol Radiology Results: ITS Impressions Head CT 02/07/25 18:39 Impression: No acute intracranial hemorrhage or suspicious mass effect. Modified Barium Swallow 02/14/25 11:22 IMPRESSION: Mild pharyngeal dysphagia with laryngeal penetration without aspiration. Please correlate with speech pathologist findings and specific feeding recommendations. Chest X-Ray 02/18/25 13:16 Impression: Patchy bilateral airspace disease could reflect pulmonary/atelectasis versus bilateral pneumonia. Correlate clinically. Small bilateral pleural effusions. Renal Ultrasound 02/19/25 15:09 IMPRESSION: 1. Normal kidneys without hydronephrosis. Labs Labs: Laboratory Tests 02/20/25 08:16 02/20/25 08:16 Calcium 8.8 Magnesium 2.4 H Total Bilirubin 0.8 AST 87 H ALT 38 H Alkaline Phosphatase 202 H Total Creatine Kinase 21 L Total Protein 6.3 Albumin 2.8 L Vancomycin Trough 22.2 H Microbiology 02/18/25 13:52 Urine [place] Urine Culture - Final [place] d[place]ini[place] 02/14/25 11:39 Blood Blood Culture - Final 02/14/25 11:49 Blood Blood Culture - Final
[2025-02-20] MEDS: MEROPENEM 500 MG/NS 100 ML 500 MG/100 ML BAG 200 MG IVPB ×2 (10:51→21:21)
--- NOTE | 2025-02-20 15:42 | P.PNIM_ITS ---
Progress Note: A&P Assessment and Plan (1) Altered mental status: Code(s): R41.82 - Altered mental status, unspecified Status: Acute Assessment and Plan: Infection verses stroke versus electrolyte imbalance versus other CT head no acute findings Replete electrolytes as needed IV antibiotics for infection. vancomycin, and cefepime Blood culture positive for MRSA. Continue vancomycin TTE neg for endocarditis. per cardiology if repeat B/C neg no need for QI Repeat blood culture since 02/09/2025 has been negative Follow-up blood culture results Holding sedated of medications until more alert PT/OT/ST Hold lorazepam and since then has been more alert. (2) JERRY (acute kidney injury): Code(s): N17.9 - Acute kidney failure, unspecified Status: Acute Assessment and Plan: IV fluids for hydration worsening lasix on hold Repeat BMP US renal unremarkable Creatinine is stable but elevated than baseline. Vanc level elevated and likely indicated above vanc toxicity Vanc dose has been adjusted Continue to trend creatinine Consulted nephrology Renal ultrasound with no hydronephrosis. Poor p.o. intake will start IV fluid today. Urinalysis with urine casts [place] and WBC 51-100 noted. Cultures with yeast. Added fluconazole daily. (3) Acute hypokalemia: Code(s): E87.6 - Hypokalemia Status: Acute Assessment and Plan: replaced, continue monitoring (4) UTI (urinary tract infection): Qualifiers: Urinary tract infection type: acute cystitis Hematuria presence: without hematuria Qualified Code(s): N30.00 - Acute cystitis without hematuria Code(s): N39.0 - Urinary tract infection, site not specified Status: Acute Assessment and Plan: Could be causing altered mental status received rocephin Currently on cefepime for healthcare associated pneumonia. Complete 7 days course started 02/13/2025 UA this is suggestive of UTI. Yeast present. Added fluconazole (5) Diarrhea: Code(s): R19.7 - Diarrhea, unspecified Status: Acute Assessment and Plan: Likely cause of acute dehydration and hypokalemia Negative for C diff Imodium (6) Bipolar disorder: Qualifiers: Active/Remission status: in remission of unspecified degree Qualified Code(s): F31.70 - Bipolar disorder, currently in remission, most recent episode unspecified Code(s): F31.9 - Bipolar disorder, unspecified Status: Acute Assessment and Plan: Patient on Lamictal and sertraline (7) HTN (hypertension): Qualifiers: Hypertension type: essential hypertension Qualified Code(s): I10 - Essential (primary) hypertension Code(s): I10 - Essential (primary) hypertension Status: Chronic Assessment and Plan: lasix dc due to JERRY (8) Diastolic dysfunction: Code(s): I51.89 - Other ill-defined heart diseases Status: Acute Assessment and Plan: Acute on chronic HFpEF dc lasix due to JERRY cardiology team on board (9) Obstructive sleep apnea on CPAP: Code(s): G47.33 - Obstructive sleep apnea (adult) (pediatric); Z99.89 - Dependence on other enabling machines and devices Status: Acute Assessment and Plan: Does not appear to be on home CPAP (10) Sepsis: Code(s): A41.9 - Sepsis, unspecified organism Status: Acute Assessment and Plan: possible pneumonia vs UTI IV antibiotics for infection. received Rocephin, vancomycin, Flagyl. continue vancomycin cefepime for possible pneumonia Blood culture positive for MRSA Follow-up blood culture results TTE neg for endocarditis pulmonary team on board Respiratory pathogen panel positive for parainfluenza 3 Cefepime for possible healthcare associated pneumonia. D 7/7 Repeat chest x-ray with some improvement in left lower lung zone Worsen leukocytosis UA with budding yeast urine culture with Val dubliniensis. added fluconazole Will start meropenem Remains on vancomycin for MRSA bacteremia Repeat blood culture obtained today. Will do CT chest abdomen pelvis (11) NSTEMI (non-ST elevated myocardial infarction): Code(s): I21.4 - Non-ST elevation (NSTEMI) myocardial infarction Status: Acute Assessment and Plan: Troponin: 0.287-0.364 Likely demand ischemia monitor for now Cardiology team on board Plan DVT prophylaxis on Sq Heparin Subjective Date/time seen: 02/20/25 15:42 Interval history: Patient eating poorly. Labs reviewed with worsen leukocytosis. Remains afebrile. Denies any specific symptoms however only interacts with yes no question. She reports she is not having any problems. Creatinine continues to decline. Review of Systems Review of Systems: ROS unobtainable: Yes unobtainable due to mental status Exam Narrative: General: Chronically ill, appears older than stated age not in acute distress HEENT: normocephalic, atraumatic. Mucous membranes moist. EOMI, PERRLA Respiratory: Coarse breath sounds bilaterally no respiratory distress Cardiovascular: Regular rate and rhythm, normal S1-S2 upon ascultation. Abdomen: Soft, round, no pulsatile masses, nondistended and nontender. Extremities: No cyanosis, clubbing, Pulses are palpable 2/2. Neuro: More awake however non cooperative oriented to self. PERRLA. Cranial nerves 2-12 intact without focal deficit. Skin: Warm, dry, and intact, without rash, erythema, or lesion. Psych: Non cooperative Objective Data Vital Signs Vital Signs: Vital Signs - 24 hr 02/19/25 16:00 02/19/25 19:38 02/19/25 19:40 Temperature Pulse Rate 73 75 75 Respiratory Rate 20 20 Blood Pressure Pulse Oximetry 96 Oxygen Delivery Nasal Cannula Oxygen Flow Rate 1 Fraction of Inspired Oxygen 02/19/25 19:47 02/19/25 20:00 02/19/25 20:00 Temperature Pulse Rate 74 76 Respiratory Rate 20 Blood Pressure Pulse Oximetry 96 Oxygen Delivery Nasal Cannula Oxygen Flow Rate 1 Fraction of Inspired Oxygen 02/19/25 22:26 02/19/25 22:30 02/20/25 00:00 Temperature 98.2 F Pulse Rate 78 79 83 Respiratory Rate 18 Blood Pressure 127/67 Pulse Oximetry 97 97 Oxygen Delivery Oxygen Flow Rate Fraction of Inspired Oxygen 02/20/25 01:41 02/20/25 01:48 02/20/25 01:50 Temperature Pulse Rate 84 72 80 Respiratory Rate 20 20 Blood Pressure Pulse Oximetry 97 Oxygen Delivery Oxygen Flow Rate Fraction of Inspired Oxygen 02/20/25 04:00 02/20/25 06:00 02/20/25 08:05 Temperature 97.4 F L Pulse Rate 88 89 87 Respiratory Rate 18 20 Blood Pressure 122/43 L Pulse Oximetry 100 98 Oxygen Delivery Nasal Cannula Oxygen Flow Rate 1 Fraction of Inspired Oxygen 02/20/25 08:05 02/20/25 08:05 02/20/25 08:15 Temperature Pulse Rate 87 87 85 Respiratory Rate 20 20 Blood Pressure Pulse Oximetry Oxygen Delivery Oxygen Flow Rate Fraction of Inspired Oxygen 02/20/25 08:40 02/20/25 10:07 02/20/25 12:04 Temperature Pulse Rate 83 Respiratory Rate 20 Blood Pressure Pulse Oximetry 94 94 Oxygen Delivery Room Air Room Air Oxygen Flow Rate Fraction of Inspired Oxygen 02/20/25 14:00 02/20/25 14:09 02/20/25 14:09 Temperature 97.3 F L Pulse Rate 86 69 69 Respiratory Rate 12 20 20 Blood Pressure 147/66 H Pulse Oximetry 99 96 Oxygen Delivery Room Air Oxygen Flow Rate Fraction of Inspired Oxygen 02/20/25 14:21 Temperature Pulse Rate 86 Respiratory Rate 20 Blood Pressure Pulse Oximetry Oxygen Delivery Oxygen Flow Rate Fraction of Inspired Oxygen Intake/Output Intake/Output: Intake & Output 02/17/25 02/18/25 02/19/25 02/20/25 23:59 23:59 23:59 23:59 Intake Total 1030 522 350 362.5 Output Total 950 750 710 450 Balance 80 -228 -360 -87.5 Meds/Results Medications: Active Medications Generic Name Dose Route Start Last Admin Trade Name Freq PRN Reason Stop Dose Admin Acetaminophen 650 mg 02/07/25 15:41 02/07/25 20:34 Acetaminophen 325 Mg Tablet PO 650 mg Q4H PRN Administration Mild Pain (1-3) or Fever Artificial Tears 1 drop 02/08/25 09:32 Artificial Tears Ophth Soln 15 Ml Bottle EACH EYE 03/10/25 09:31 PRN PRN dry eye(s) Carvedilol 18.75 mg 02/08/25 09:00 02/20/25 10:02 Carvedilol 6.25 Mg Tablet PO Not Given Q12HR CARLIN Duloxetine HCl 60 mg 02/08/25 09:00 02/20/25 10:03 Duloxetine Hcl 60 Mg Capsule.Dr PO Not Given Q12HR CARLIN Fluconazole 100 mg 02/19/25 09:55 02/20/25 10:03 Fluconazole 100 Mg Tablet PO Not Given QAM CARLIN Heparin Sodium (Porcine) 5,000 units 02/13/25 14:00 02/20/25 13:08 Heparin Sodium 5,000 Units/Ml Vial SUB-Q 5,000 units Q8HR CARLIN Administration Meropenem 500 mg in 100 mls @ 200 mls/hr 02/20/25 10:30 02/20/25 11:20 IVPB Infused Q12HR CARLIN Infusion Sodium Chloride 1,000 mls @ 75 mls/hr 02/20/25 10:00 02/20/25 14:00 Normal Saline Iv IV CONT 75 mls/hr .[id number] CARLIN Infusion Lamotrigine 200 mg 02/08/25 09:00 02/20/25 10:03 Lamotrigine 100 Mg Tablet PO Not Given Q12HR CARLIN Levalbuterol HCl 1.25 mg 02/11/25 20:00 02/20/25 14:08 Levalbuterol Neb 1.25 Mg/3 Ml INHALATION 1.25 mg Q6HRT CARLIN Administration Loperamide HCl 2 mg 02/07/25 18:18 02/12/25 14:35 Loperamide Hcl 2 Mg Capsule PO 2 mg PRN PRN Administration Diarrhea Lorazepam 1 mg 02/09/25 15:15 02/15/25 10:49 Lorazepam (*Crx) 1 Mg Tablet PO 1 mg Q8H PRN Administration Anxiety Ondansetron HCl 4 mg 02/07/25 15:41 02/16/25 12:09 Ondansetron Inj 4 Mg/2 Ml Vial IV PUSH 4 mg Q4H PRN Administration Nausea Sertraline HCl 100 mg 02/08/25 09:00 02/20/25 10:03 Sertraline Hcl 50 Mg Tablet PO Not Given DAILY CARLIN Vancomycin HCl 1 each 02/20/25 10:41 Vancomycin For Acute Kidney Injury IVPB PRN PRN Vancomycin Protocol Radiology Results: ITS Impressions Head CT 02/07/25 18:39 Impression: No acute intracranial hemorrhage or suspicious mass effect. Modified Barium Swallow 02/14/25 11:22 IMPRESSION: Mild pharyngeal dysphagia with laryngeal penetration without aspiration. Please correlate with speech pathologist findings and specific feeding recommendations. Chest X-Ray 02/18/25 13:16 Impression: Patchy bilateral airspace disease could reflect pulmonary/atelectasis versus bilateral pneumonia. Correlate clinically. Small bilateral pleural effusions. Renal Ultrasound 02/19/25 15:09 IMPRESSION: 1. Normal kidneys without hydronephrosis. Chest/Abdomen/Pelvis CT 02/20/25 15:06 Impression: Airspace consolidation groundglass opacity throughout both lungs. Correlate for interval element of pulmonary edema versus bilateral pneumonia. Increasing small bilateral pleural effusions with bibasilar atelectatic change. New inflammatory change and/or fluid in the upper abdomen, suggestive of acute pancreatitis. Correlate clinically. Labs Labs: Laboratory Results - last 24 hr 02/20/25 08:16 WBC 29.9 H RBC 3.94 L Hgb 12.4 Hct 39.8 MCV 101.0 H MCH 31.5 MCHC 31.2 L RDW 19.7 H Plt Count 407 H MPV 8.8 Immature Gran % (Auto) 5.1 H Neut % (Auto) 82.6 H Lymph % (Auto) 4.3 L Alfalfa % (Auto) 7.7 Eos % (Auto) 0.2 Baso % (Auto) 0.1 L Lymph # (Auto) 1.30 Alfalfa # (Auto) 2.3 H Eos # (Auto) 0.1 Baso # (Auto) 0.0 Abs Immat Gran (auto) 1.51 H Absolute Neuts (auto) 24.7 H Absolute Nucleated RBC 0.000 Nucleated RBC % 0.0 Sodium 137 Potassium 4.0 Chloride 109 H Carbon Dioxide 15 L Anion Gap 13 H BUN 42 H Creatinine 2.70 H Estim Creat Clear Calc 22 Estimated GFR 18 L Glucose 73 Calcium 8.8 Magnesium 2.4 H Total Bilirubin 0.8 AST 87 H ALT 38 H Alkaline Phosphatase 202 H Total Creatine Kinase 21 L Total Protein 6.3 Albumin 2.8 L Vancomycin Trough 22.2 H
[2025-02-20 17:00] LABS: Urine Eos QC 2nd Tech Confirmed
[2025-02-20 17:30] LABS: Total Protein Urine Random 99 mg/dL; Urea Random Urine 419 MG/DL
[2025-02-20 17:53] LABS: Total Protein Urine Random 97 mg/dL; Ur Ttl Prot Creatinine Ratio 0.71 mg/mg (0-0.20)
[2025-02-20 18:48] LABS: NT Pro B Type Natriuretic Pept 26800 pg/mL (19.9-100)
[2025-02-20 18:56] LABS: Lipase 5561 U/L (23-300)
--- NOTE | 2025-02-20 23:47 | PCRCNOTE ---
Patient refused her 1999 updraft treatment due to being preoccupied with Ultrasound.
[2025-02-21] VITALS (14 sets, daily range): BP systolic 139–148; BP diastolic 45–64; PULSE 73–104; RESP 16–20; TEMP 36.3–36.4; O2SAT 96–97
[2025-02-21] MEDS: SODIUM CHLORIDE 0.9% IV 1,000 ML 75 ML IV CONT (06:08)
[2025-02-21] MEDS: NACL 0.9% IRRIGATION POUR BOTTL 1,000 ML 1000 ML (06:10)
--- NOTE | 2025-02-21 06:19 | PCRCNOTE ---
Patient was not cooperating with RT this morning and refused her 0200 updraft treatment.
[2025-02-21 08:03] LABS: Hematocrit 33.0 % (37.0-47.0); Hemoglobin 10.9 g/dL (12.0-15.0); Immature Granulocyte Percent A 2.9 % (0-0.5); Lymphocytes Absolute Auto 0.77 K/mm3 (0.9-3.2); Mean Corpuscular HGB Conc 33.0 g/dl (32-36); Mean Corpuscular Hemoglobin 31.8 pg (26-34); Mean Corpuscular Volume 96.2 fl (80-100); Nucleated Red Blood Cells Absolute Auto 0.000 K/mm3 (0.0-0.012); Nucleated Red Blood Cells Perc 0.0 % (0.0-0.2); Platelet Count Result 389 k/mm3 (150-375); Red Blood Count 3.43 M/mm3 (4.2-5.4); White Blood Count 30.0 K/mm3 (4.5-10.0)
[2025-02-21 08:13] LABS: Alanine Aminotransferase 27 U/L (6-35); Albumin Level 2.5 g/dL (3.5-5.1); Alkaline Phosphatase 194 U/L (38-126); Anion Gap 14 mmol/L (4-12); Aspartate Amino Transferase 49 U/L (14-36); Bilirubin,Total 0.6 mg/dL (0.2-1.3); Blood Urea Nitrogen 45 mg/dL (7-17); Calcium 8.7 mg/dL (8.4-10.2); Carbon Dioxide 13 mmol/L (22-30); Chloride 111 mmol/L (98-107); Estimated CRCL calculation 19 ml/min; Estimated Glomerular Filt Rate 15; Glucose 70 mg/dL (65-110); Lipase 1775 U/L (23-300); Magnesium 2.3 mg/dL (1.6-2.3); Potassium 3.6 mmol/L (3.4-5.0); Sodium 138 mmol/L (137-145); Total Protein 5.7 g/dL (6.3-8.2)
[2025-02-21] MEDS: MEROPENEM 500 MG/NS 100 ML 500 MG/100 ML BAG 200 MG IVPB ×2 (08:49→20:56)
[2025-02-21 10:30] LABS: INR 1.2; Partial Thromboplastin Time 40.5 Seconds (22.3-36.8); Prothrombin Time 15.7 Seconds (11.1-14.7)
[2025-02-21] MEDS: HEPARIN SOD/D5W 100 UNITS/ML 25,000 UNITS/250 ML BAG 13 UNITS IV CONT (11:04)
--- NOTE | 2025-02-21 13:13 | PCNFU ---
Nutrition Follow-Up Complete: Inadequate oral intake related to loss of appetite, mouth sores as evidenced by weight loss 21%/5 months PO intakes at least 50% meals and supplements - Goal is not being met. Continue with same goal Goal: Pt current nutrition is Heart healthy diet, Minced & moist L5, mildly thick L2. Ensure +HP BID (350 kcal, 20 g protein) Nutrition recommendation: Continue current nutrition care plan and encourage PO intake. Last recorded weight is 104.5 kg. Bowel Motility: +2 BMs 02/19 Labs Reviewed: Hgb 10.9, Hct 33, Alb 2.5, BUN 45, Cre 3.02 Meds Noted: Zofran, immodium Skin:WNL Additional Notes: RN tells me pt is refusing food and meds. Will sometimes drink a little bit. Pt is able to eat just refusing. Continue with current plan. Monitoring intakes, weights, labs, supplement tolerance, plan of care FOllow up in 5 days
--- NOTE | 2025-02-21 13:33 | P.PNNP_ITS ---
Progress Note: A&P Assessment and Plan (1) Acute kidney injury: Code(s): N17.9 - Acute kidney failure, unspecified Status: Acute Assessment and Plan: * as noted on admission (creatinine 3.63mg/dl) * interestingly, associated with significant hypokalemia * transiently improved to 1.27mg/dl (on 02/12) * then started to progressively deteriorate again on 02/13 * suspect multifactorial etiology: * prerenal factors (poor oral intake) * infection/sepsis (bacteremia + UTI) * diuretic use * antibiotics (vancomycin toxicity?) * other? * evaluation to date noted: * normal renal ultrasound * urine electrolytes pre-renal * urine eosinophils negative * moderate proteinuria (~ 700mg) * CPK low * on trial of IVFs -- watch volume status * follow repeat labs and UOP (2) Stage 3 chronic kidney disease: Code(s): N18.30 - Chronic kidney disease, stage 3 unspecified Status: Chronic Assessment and Plan: * baseline creatinine runs ~ 1.0 - 1.5mg/dl * presumably due to hypertension, SIMEON, obesity, and age-related change (3) Altered mental status: Qualifiers: Altered mental status type: delirium Qualified Code(s): R41.0 - Disorientation, unspecified Code(s): R41.82 - Altered mental status, unspecified Status: Acute Assessment and Plan: * etiology not clear * possible issues include: * infection (bacteremia + fungal UTI) * previous hypoxia * previous SDH * electrolyte imbalance (low K+ but corrected) * psychiatric (known bipolar disorder) * CT of head without any acute findings * holding sedating medications * ongoing PT/OT/ST * follow trend of mentation (4) Sepsis: Code(s): A41.9 - Sepsis, unspecified organism Status: Acute Assessment and Plan: * due to several issues: * blood culture (1 set out of 2) with MRSA from 02/07 * possible pneumonia imaging (completed course of antibiotics) * fungal UTI [UA with budding yeast; urine culture with Val dubliniensis -- (fluconazole added 02/19 but patient refusing/not taking consistently] * repeat blood cultures (02/09 + 02/14) with no growth * respiratory pathogen panel positive for parainfluenza 3 * however worsening leukocytosis noted on 02/20 * CT C/A/P (on 02/20): showing airspace consolidation ground glass opacity throughout both lungs (correlate for interval element of pulmonary edema versus bilateral pneumonia); increasing small bilateral pleural effusions with bibasilar atelectatic change; new inflammatory change and/or fluid in the upper abdomen, suggestive of acute pancreatitis. * repeat blood cultures (02/20) with now growth to date * repeat urine culture (02/20) with no growth * meropenem added 02/20 * remains on vancomycin for MRSA bacteremia * continue supportive therapy (5) MRSA bacteremia: Code(s): R78.81 - Bacteremia; B95.62 - Methicillin resistant Staphylococcus aureus infection as the cause of diseases classified elsewhere Status: Acute Assessment and Plan: * as noted by culture data: * 1 out of 2 sets noted on 02/07 * repeat cultures to date negative * on vancomycin (6) UTI (urinary tract infection): Qualifiers: Hematuria presence: without hematuria Urinary tract infection type: a cute cystitis Qualified Code(s): N30.00 - Acute cystitis without hematuria Code(s): N39.0 - Urinary tract infection, site not specified Status: Acute Assessment and Plan: * admission UA (on 02/18) with 51-100 WB, 2+ LE and negative nitrates (but drawn from a [facility]) * urine culture with Val * on fluconazole (7) Pancreatitis: Code(s): K85.90 - Acute pancreatitis without necrosis or infection, unspecified Status: Acute Assessment and Plan: * incidental finding of 02/20 CT imaging: * new inflammatory change and/or fluid in the upper abdomen, suggestive of acute pancreatitis * lipase was 5561 with slow improvement * RUQ US showing no acute findings -- she is s/p cholecystectomy * benign exam and not complaining of abdominal pain * follow trend of lipase (8) DVT (deep venous thrombosis): Code(s): I82.409 - Acute embolism and thrombosis of unspecified deep veins of unspecified lower extremity Status: Acute Assessment and Plan: * dopplers of upper extremities and lower extremeties (on 02/20) noted: * negative for UEs * LEs with showing bilateral DVTs within the bilateral posterior tibial and peroneal veins. * on heparin gtt * switch to oral medication when patient taking oral medications reliably (9) Acute hypoxemic respiratory failure: Code(s): J96.01 - Acute respiratory failure with hypoxia Status: Acute Assessment and Plan: * resolved * thought to be secondary to acute CHF, pneumonia, and possibly refusal to wear CPAP * s/p diuresis with clinical improvement * weaned to room air * follow respiratory status closely given #1 (10) HTN (hypertension): Qualifiers: Hypertension type: essential hypertension Qualified Code(s): I10 - Essential (primary) hypertension Code(s): I10 - Essential (primary) hypertension Status: Chronic Assessment and Plan: * reasonable control * follow trend of hemodyamics (11) Diastolic dysfunction: Code(s): I51.89 - Other ill-defined heart diseases Status: Acute Assessment and Plan: * evidence of exacerbation earlier in hospital course * Cardiology recommendations noted * however, off lasix at this time due to #1 * follow volume status closely (12) Bipolar disorder: Qualifiers: Active/Remission status: currently active Code(s): F31.9 - Bipolar disorder, unspecified Status: Acute Assessment and Plan: * on Lamictal and sertraline * however, not taking regularly due to refusal at times * suspect may be playing a role with #3 * further intervention(?) Will continue to follow. L Subjective Date/time seen: 02/21/25 13:33 Interval history: Follow-up for acute kidney injury/acute renal failure on chronic kidney disease. Renal function/creatinine continues to worsen with noted decline in urine output overnight; no apparent distress noted but only nods her head to questions; results of CT imaging done yesterday noted; LE dopplers positive for DVTs so started on heparin gtt; apparently refusing to take oral medication and oral intake remains poor as well. Exam 2 Narrative: General: somewhat ill-appearing female in NAD Heart: normal S1 and S2; no rub Lungs: coarse breath sounds Abdomen: soft, nontender, nondistended, positive bowel sounds Extremities: no cyanosis or clubbing; 1+ edema Skin: warm and intact Objective Data Vital Signs Vital Signs: Vital Signs - 24 hr 02/20/25 20:00 02/20/25 20:00 02/20/25 20:30 Temperature Pulse Rate 85 Respiratory Rate Blood Pressure Pulse Oximetry 95 Oxygen Delivery Room Air Room Air 02/20/25 21:19 02/21/25 00:00 02/21/25 04:00 Temperature 97.6 F Pulse Rate 83 93 89 Respiratory Rate 14 Blood Pressure 121/66 Pulse Oximetry 96 Oxygen Delivery 02/21/25 05:53 02/21/25 08:00 02/21/25 08:00 Temperature 97.4 F L Pulse Rate 87 88 Respiratory Rate 16 Blood Pressure 139/45 L Pulse Oximetry 97 Oxygen Delivery Room Air 02/21/25 08:24 02/21/25 08:24 02/21/25 08:30 Temperature Pulse Rate 84 87 Respiratory Rate 20 20 Blood Pressure Pulse Oximetry 96 Oxygen Delivery Room Air 02/21/25 12:00 Temperature Pulse Rate 88 Respiratory Rate Blood Pressure Pulse Oximetry Oxygen Delivery Intake/Output Intake/Output: Intake & Output 02/18/25 02/19/25 02/20/25 02/21/25 23:59 23:59 23:59 23:59 Intake Total 522 350 775.0 1002.2 Output Total 750 710 850 100 Balance -228 -360 -75.0 902.2 Meds/Results Medications: Active Medications Generic Name Dose Route Start Last Admin Trade Name Freq PRN Reason Stop Dose Admin Acetaminophen 650 mg 02/07/25 15:41 02/07/25 20:34 Acetaminophen 325 Mg Tablet PO 650 mg Q4H PRN Administration Mild Pain (1-3) or Fever Artificial Tears 1 drop 02/08/25 09:32 Artificial Tears Ophth Soln 15 Ml Bottle EACH EYE 03/10/25 09:31 PRN PRN dry eye(s) Carvedilol 18.75 mg 02/08/25 09:00 02/21/25 11:12 Carvedilol 6.25 Mg Tablet PO Not Given Q12HR [facility] Duloxetine HCl 60 mg 02/08/25 09:00 02/21/25 11:12 Duloxetine Hcl 60 Mg Capsule.Dr PO Not Given Q12HR CARLIN Fluconazole 100 mg 02/19/25 09:55 02/21/25 11:12 Fluconazole 100 Mg Tablet PO Not Given QAM CARLIN Heparin Sodium (Porcine) 6,000 units 02/21/25 08:32 02/21/25 18:03 Heparin Sodium 5,000 Units/Ml Vial IV PUSH 6,000 units PRN PRN Administration aPTT less than 55 seconds Heparin Sodium (Porcine) 3,000 units 02/21/25 08:32 Heparin Sodium 5,000 Units/Ml Vial IV PUSH PRN PRN aPTT 55 - 70 seconds Meropenem 500 mg in 100 mls @ 200 mls/hr 02/20/25 10:30 02/21/25 08:49 IVPB 200 mls/hr Q12HR CARLIN Administration Heparin Sodium/Dextrose 25,000 units in 250 mls @ 16 mls/hr 02/21/25 08:35 02/21/25 18:04 Heparin Sodium/D5w 100 Units/Ml IV CONT 1,600 units/hr .[id number] CARLIN 16 mls/hr Titration Protocol 1,600 UNITS/HR Lamotrigine 200 mg 02/08/25 09:00 02/21/25 11:12 Lamotrigine 100 Mg Tablet PO Not Given Q12HR CARLIN Levalbuterol HCl 1.25 mg 02/11/25 20:00 02/21/25 13:47 Levalbuterol Neb 1.25 Mg/3 Ml INHALATION 1.25 mg Q6HRT CARLIN Administration Lorazepam 1 mg 02/09/25 15:15 02/15/25 10:49 Lorazepam (*Crx) 1 Mg Tablet PO 1 mg Q8H PRN Administration Anxiety Ondansetron HCl 4 mg 02/07/25 15:41 02/16/25 12:09 Ondansetron Inj 4 Mg/2 Ml Vial IV PUSH 4 mg Q4H PRN Administration Nausea Sertraline HCl 100 mg 02/08/25 09:00 02/21/25 11:12 Sertraline Hcl 50 Mg Tablet PO Not Given DAILY CARLIN Sodium Bicarbonate 1,300 mg 02/21/25 17:00 02/21/25 17:27 Sodium Bicarbonate Tab 650 Mg Tablet PO Not Given BID CARLIN Vancomycin HCl 1 each 02/20/25 10:41 Vancomycin For Acute Kidney Injury IVPB PRN PRN Vancomycin Protocol Radiology Results: ITS Impressions Head CT 02/07/25 18:39 Impression: No acute intracranial hemorrhage or suspicious mass effect. Modified Barium Swallow 02/14/25 11:22 IMPRESSION: Mild pharyngeal dysphagia with laryngeal penetration without aspiration. Please correlate with speech pathologist findings and specific feeding recommendations. Renal Ultrasound 02/19/25 15:09 IMPRESSION: 1. Normal kidneys without hydronephrosis. Chest/Abdomen/Pelvis CT 02/20/25 15:06 Impression: Airspace consolidation groundglass opacity throughout both lungs. Correlate for interval element of pulmonary edema versus bilateral pneumonia. Increasing small bilateral pleural effusions with bibasilar atelectatic change. New inflammatory change and/or fluid in the upper abdomen, suggestive of acute pancreatitis. Correlate clinically. Chest X-Ray 02/21/25 06:02 Impression: Probable patchy mild pulmonary edema pattern versus patchy bilateral pneumonia. Correlate clinically. Small right pleural effusion. Venous Doppler Study 02/21/25 07:40 IMPRESSION: Deep venous thrombosis within the bilateral posterior tibial and peroneal veins, as detailed above. Remainder of the examination is unremarkable. Upper Quadrant Ultrasound 02/21/25 12:03 IMPRESSION: Unremarkable limited ultrasound examination of the right upper quadrant, as detailed above. Labs Labs: Laboratory Tests 02/21/25 07:55 02/21/25 07:55 Calcium 8.7 Magnesium 2.3 Total Bilirubin 0.6 AST 49 H ALT 27 Alkaline Phosphatase 194 H Total Protein 5.7 L Albumin 2.5 L Lipase 1775 H Random Vancomycin 19.6 Microbiology 02/20/25 10:49 Blood Blood Culture - Preliminary 02/20/25 11:10 Blood Blood Culture - Preliminary
--- NOTE | 2025-02-21 17:03 | P.PNIM_ITS ---
Progress Note: A&P Assessment and Plan (1) Altered mental status: Code(s): R41.82 - Altered mental status, unspecified Status: Acute Assessment and Plan: Infection verses stroke versus electrolyte imbalance versus other (psych) CT head no acute findings Holding sedating medications until more alert PT/OT/ST (2) Sepsis: Code(s): A41.9 - Sepsis, unspecified organism Status: Acute Assessment and Plan: possible pneumonia vs UTI CXR concerning for PNA vs edema. IV antibiotics for possible PNA (Rocephin, vancomycin, Flagyl ->vancomycin cefepime) BCx 02/07 positive for MRSA. TTE neg for endocarditis. per cardiology if repeat B/C neg no need for QI BCx 02/09 and 02/14 negative Pulmonary team was on board Respiratory pathogen panel positive for parainfluenza 3 Cefepime for possible HCAP and completed a course on 02/19 Worsen leukocytosis to 30K CT chest/Abd/Pelvis showing airspace consolidation groundglass opacity throughout both lungs. Correlate for interval element of pulmonary edema versus bilateral pneumonia. Increasing small bilateral pleural effusions with bibasilar atelectatic change. New inflammatory change and/or fluid in the upper abdomen, suggestive of acute pancreatitis. UA with budding yeast urine culture with Val dubliniensis. fluconazole added 02/19 but patient refusing BCx 02/20 NGTD UCx 02/20 pending. Meropenem added 02/20 Remains on vancomycin for MRSA bacteremia Consider pancreatitis as reason for elevated WBC. No diarrhea to suggest CDIff. Continue meropenem. Continue meropenem and vancomycin (3) MRSA bacteremia: Code(s): R78.81 - Bacteremia; B95.62 - Methicillin resistant Staphylococcus aureus infection as the cause of diseases classified elsewhere Status: Acute Assessment and Plan: As above (4) Pancreatitis: Code(s): K85.90 - Acute pancreatitis without necrosis or infection, unspecified Status: Acute Assessment and Plan: Patient with incidental finding of CT Abd/Pelvis showing new inflammatory change and/or fluid in the upper abdomen, suggestive of acute pancreatitis. Lipase was 5561. Repeat level trending down RUQ US showing no acute findings. She is s/p cholecystectomy. Check TG level. Exam relatively benign. Trend lipase. (5) JERRY (acute kidney injury): Code(s): N17.9 - Acute kidney failure, unspecified Status: Acute Assessment and Plan: Cr mostly 1.2-1.5 range through December 2024. Cr 3.6 on admission and did improve to 1.3 a few days after admission but has since been climbing. IV fluids for hydration, lasix on hold I/O: +10.5L. Concerning for fluid overload on exam and by imaging. BNP 27K (BNP 3K in October) Renal US unremarkable Prot/Cr 0.7gm. Kasandra 18. FENa 0.2% Vanc troughs elevated and likely indicated vanc toxicity? No contrast given. Nephrology following and appreciate their input. She is not eating Creatinine is stable but elevated than baseline. Metabolic acidosis worsening (AG 14). Potassium okay Na Bicarb added but she is not taking meds Continue to monitor UOP, renal function and electrolytes. Stop IV fluids? (6) DVT (deep venous thrombosis): Code(s): I82.409 - Acute embolism and thrombosis of unspecified deep veins of unspecified lower extremity Status: Acute Assessment and Plan: Doppler of the LUE negative for DVT Doppler of the bilateral LE showing bilateral DVT within the bilateral posterior tibial and peroneal veins. Changed to Heparin gtt Monitor. Change to oral agent when able (7) Acute hypokalemia: Code(s): E87.6 - Hypokalemia Status: Acute Assessment and Plan: Potassium was replaced. Levels normalized Continue monitoring (8) UTI (urinary tract infection): Qualifiers: Urinary tract infection type: acute cystitis Hematuria presence: without hematuria Qualified Code(s): N30.00 - Acute cystitis without hematuria Code(s): N39.0 - Urinary tract infection, site not specified Status: Acute Assessment and Plan: UA 02/18 showing 51-100 WB, 2+ LE and negative nitrates but drawn from a Castro Could be causing altered mental status but felt more psych related now Received rocephin but UCx growing Val Currently on meropenem and vanco Yeast present so fluconazole added (9) Diarrhea: Code(s): R19.7 - Diarrhea, unspecified Status: Acute Assessment and Plan: Likely cause of acute dehydration and hypokalemia Negative for C diff Imodium once on 02/12. Resolved (10) Bipolar disorder: Qualifiers: Active/Remission status: in remission of unspecified degree Qualified Code(s): F31.70 - Bipolar disorder, currently in remission, most recent episode unspecified Code(s): F31.9 - Bipolar disorder, unspecified Status: Acute Assessment and Plan: Patient on Lamictal and sertraline but not taking regularly Add IM Zyprexa x 1 Psych consult (11) HTN (hypertension): Qualifiers: Hypertension type: essential hypertension Qualified Code(s): I10 - Essential (primary) hypertension Code(s): I10 - Essential (primary) hypertension Status: Chronic Assessment and Plan: Patient's blood pressure was reviewed on 02/21 Blood pressure remains well controlled. Will continue to monitor (12) Diastolic dysfunction: Code(s): I51.89 - Other ill-defined heart diseases Status: Acute Assessment and Plan: Acute on chronic HFpEF dc 'd lasix due to JERRY cardiology team on board (13) Obstructive sleep apnea on CPAP: Code(s): G47.33 - Obstructive sleep apnea (adult) (pediatric); Z99.89 - Dependence on other enabling machines and devices Status: Acute Assessment and Plan: Does not appear to be on home CPAP (14) NSTEMI (non-ST elevated myocardial infarction): Code(s): I21.4 - Non-ST elevation (NSTEMI) myocardial infarction Status: Acute Assessment and Plan: Troponin: 0.287-0.364 Likely demand ischemia monitor for now Cardiology team on board (15) Acute hypoxemic respiratory failure: Code(s): J96.01 - Acute respiratory failure with hypoxia Status: Acute Assessment and Plan: Patieint with SOB and hypoxia 02/12 up to 4L. [place] related to CHF with her weight gain, imaging findings and BNP 28K. Patient received Lasix 40 on 02/12 in the evening. There is no evidence of hypercarbic respiratory failure with ABG on 4 L 7.45/32/57. Weaned to room air. Follow Plan DVT prophylaxis on Heparin Code status - full Subjective Date/time seen: 02/21/25 17:03 Interval history: 69yo female history of bipolar 1, hypertension, brain tumor, iron deficiency anemia, CKD and SIMEON presents to the hospital with altered mental status from a alf. Assuming care. Chart reviewed. She is unable to provide hx today Review of Systems Review of Systems: ROS unobtainable: Yes unobtainable due to mental status Exam Narrative: AF 97.4 139/45 81 20 96% ra Gen - NARD HEENT - Resists eye exam. Chest - lungs clear anteriorly CV - RRR S1/S2 with systolic murmur left USB Abd - Soft, obese, hypoactive BS, mild upper abd tenderness but no guarding - Castro secured Ext - 1-2+ pitting pedal edema Neuro - keeps eyes closed. does not respond to questions but does follow commands on occasion Psych - odd affect Skin - Warm and dry Objective Data Vital Signs Vital Signs: Vital Signs - 24 hr 02/20/25 20:00 02/20/25 20:00 02/20/25 20:30 Temperature Pulse Rate 85 Respiratory Rate Blood Pressure Pulse Oximetry 95 Oxygen Delivery Room Air Room Air 02/20/25 21:19 02/21/25 00:00 02/21/25 04:00 Temperature 97.6 F Pulse Rate 83 93 89 Respiratory Rate 14 Blood Pressure 121/66 Pulse Oximetry 96 Oxygen Delivery 02/21/25 05:53 02/21/25 08:00 02/21/25 08:00 Temperature 97.4 F L Pulse Rate 87 88 Respiratory Rate 16 Blood Pressure 139/45 L Pulse Oximetry 97 Oxygen Delivery Room Air 02/21/25 08:24 02/21/25 08:24 02/21/25 08:30 Temperature Pulse Rate 84 87 Respiratory Rate 20 20 Blood Pressure Pulse Oximetry 96 Oxygen Delivery Room Air 02/21/25 12:00 02/21/25 13:48 02/21/25 13:54 Temperature Pulse Rate 88 87 81 Respiratory Rate 18 20 Blood Pressure Pulse Oximetry Oxygen Delivery Intake/Output Intake/Output: Intake & Output 02/18/25 02/19/25 02/20/25 02/21/25 23:59 23:59 23:59 23:59 Intake Total 522 350 775.0 671.2 Output Total 750 710 850 100 Balance -228 -360 -75.0 571.2 Meds/Results Medications: Active Medications Generic Name Dose Route Start Last Admin Trade Name Freq PRN Reason Stop Dose Admin Acetaminophen 650 mg 02/07/25 15:41 02/07/25 20:34 Acetaminophen 325 Mg Tablet PO 650 mg Q4H PRN Administration Mild Pain (1-3) or Fever Artificial Tears 1 drop 02/08/25 09:32 Artificial Tears Ophth Soln 15 Ml Bottle EACH EYE 03/10/25 09:31 PRN PRN dry eye(s) Carvedilol 18.75 mg 02/08/25 09:00 02/21/25 11:12 Carvedilol 6.25 Mg Tablet PO Not Given Q12HR CARLIN Duloxetine HCl 60 mg 02/08/25 09:00 02/21/25 11:12 Duloxetine Hcl 60 Mg Capsule.Dr PO Not Given Q12HR CARLIN Fluconazole 100 mg 02/19/25 09:55 02/21/25 11:12 Fluconazole 100 Mg Tablet PO Not Given QAM CARLIN Heparin Sodium (Porcine) 6,000 units 02/21/25 08:32 Heparin Sodium 5,000 Units/Ml Vial IV PUSH PRN PRN aPTT less than 55 seconds Heparin Sodium (Porcine) 3,000 units 02/21/25 08:32 Heparin Sodium 5,000 Units/Ml Vial IV PUSH PRN PRN aPTT 55 - 70 seconds Meropenem 500 mg in 100 mls @ 200 mls/hr 02/20/25 10:30 02/21/25 08:49 IVPB 200 mls/hr Q12HR CARLIN Administration Sodium Chloride 1,000 mls @ 75 mls/hr 02/20/25 10:00 02/21/25 06:08 Normal Saline Iv IV CONT 75 mls/hr .[id number] CARLIN Administration Heparin Sodium/Dextrose 25,000 units in 250 mls @ 13 mls/hr 02/21/25 08:35 02/21/25 11:04 Heparin Sodium/D5w 100 Units/Ml IV CONT 1,300 units/hr .[id number] CARLIN 13 mls/hr Administration Protocol 1,300 UNITS/HR Lamotrigine 200 mg 02/08/25 09:00 02/21/25 11:12 Lamotrigine 100 Mg Tablet PO Not Given Q12HR CARLIN Levalbuterol HCl 1.25 mg 02/11/25 20:00 02/21/25 13:47 Levalbuterol Neb 1.25 Mg/3 Ml INHALATION 1.25 mg Q6HRT CARLIN Administration Loperamide HCl 2 mg 02/07/25 18:18 02/12/25 14:35 Loperamide Hcl 2 Mg Capsule PO 2 mg PRN PRN Administration Diarrhea Lorazepam 1 mg 02/09/25 15:15 02/15/25 10:49 Lorazepam (*Crx) 1 Mg Tablet PO 1 mg Q8H PRN Administration Anxiety Ondansetron HCl 4 mg 02/07/25 15:41 02/16/25 12:09 Ondansetron Inj 4 Mg/2 Ml Vial IV PUSH 4 mg Q4H PRN Administration Nausea Sertraline HCl 100 mg 02/08/25 09:00 02/21/25 11:12 Sertraline Hcl 50 Mg Tablet PO Not Given DAILY CARLIN Sodium Bicarbonate 1,300 mg 02/21/25 17:00 Sodium Bicarbonate Tab 650 Mg Tablet PO BID CARLIN Vancomycin HCl 1 each 02/20/25 10:41 Vancomycin For Acute Kidney Injury IVPB PRN PRN Vancomycin Protocol Radiology Results: ITS Impressions Head CT 02/07/25 18:39 Impression: No acute intracranial hemorrhage or suspicious mass effect. Modified Barium Swallow 02/14/25 11:22 IMPRESSION: Mild pharyngeal dysphagia with laryngeal penetration without aspiration. Please correlate with speech pathologist findings and specific feeding recommendations. Renal Ultrasound 02/19/25 15:09 IMPRESSION: 1. Normal kidneys without hydronephrosis. Chest/Abdomen/Pelvis CT 02/20/25 15:06 Impression: Airspace consolidation groundglass opacity throughout both lungs. Correlate for interval element of pulmonary edema versus bilateral pneumonia. Increasing small bilateral pleural effusions with bibasilar atelectatic change. New inflammatory change and/or fluid in the upper abdomen, suggestive of acute pancreatitis. Correlate clinically. Chest X-Ray 02/21/25 06:02 Impression: Probable patchy mild pulmonary edema pattern versus patchy bilateral pneumonia. Correlate clinically. Small right pleural effusion. Venous Doppler Study 02/21/25 07:40 IMPRESSION: Deep venous thrombosis within the bilateral posterior tibial and peroneal veins, as detailed above. Remainder of the examination is unremarkable. Upper Quadrant Ultrasound 02/21/25 12:03 IMPRESSION: Unremarkable limited ultrasound examination of the right upper quadrant, as detailed above. Labs Labs: Laboratory Results - last 24 hr 02/20/25 02/20/25 02/20/25 10:49 15:42 15:42 WBC RBC Hgb Hct MCV MCH MCHC RDW Plt Count MPV Immature Gran % (Auto) Neut % (Auto) Lymph % (Auto) [place] % (Auto) Eos % (Auto) Baso % (Auto) Lymph # (Auto) [place] # (Auto) Eos # (Auto) Baso # (Auto) Abs Immat Gran (auto) Absolute Neuts (auto) Absolute Nucleated RBC Nucleated RBC % PT INR APTT Sodium Potassium Chloride Carbon Dioxide Anion Gap BUN Creatinine Estim Creat Clear Calc Estimated GFR Glucose Calcium Magnesium Total Bilirubin AST ALT Alkaline Phosphatase NT-Pro-B Natriuret Pep 85180 H Total Protein Albumin Lipase 5561 H U Random Total Protein 97 99 Ur Random Sodium 18 Ur Random Urea 419 Urine Creatinine 136.7 Protein/Creat Ratio 2 Random Vancomycin 02/20/25 02/21/25 02/21/25 15:42 07:55 09:49 WBC 30.0 H RBC 3.43 L Hgb 10.9 L Hct 33.0 L MCV 96.2 MCH 31.8 MCHC 33.0 RDW 20.0 H Plt Count 389 H MPV 8.7 Immature Gran % (Auto) 2.9 H Neut % (Auto) 87.0 H Lymph % (Auto) 2.6 L [place] % (Auto) 7.0 Eos % (Auto) 0.1 Baso % (Auto) 0.4 Lymph # (Auto) 0.77 L [place] # (Auto) 2.1 H Eos # (Auto) 0.0 Baso # (Auto) 0.1 Abs Immat Gran (auto) 0.87 H Absolute Neuts (auto) 26.1 H Absolute Nucleated RBC 0.000 Nucleated RBC % 0.0 PT 15.7 H INR 1.2 APTT 40.5 H Sodium 138 Potassium 3.6 Chloride 111 H Carbon Dioxide 13 L Anion Gap 14 H BUN 45 H Creatinine 3.02 H Estim Creat Clear Calc 19 Estimated GFR 15 L Glucose 70 Calcium 8.7 Magnesium 2.3 Total Bilirubin 0.6 AST 49 H ALT 27 Alkaline Phosphatase 194 H NT-Pro-B Natriuret Pep Total Protein 5.7 L Albumin 2.5 L Lipase 1775 H U Random Total Protein Ur Random Sodium Ur Random Urea Urine Creatinine 136.2 Protein/Creat Ratio 2 0.71 H Random Vancomycin 19.6
[2025-02-21 17:27] LABS: INR 1.5; Prothrombin Time 18.3 Seconds (11.1-14.7)
[2025-02-21] MEDS: OLANZapine 10 MG INJ VIAL 2.5 MG IM (18:20)
[2025-02-22] VITALS (16 sets, daily range): BP systolic 135–136; BP diastolic 66–89; PULSE 71–102; RESP 18–20; TEMP 36.1–37; O2SAT 94–98
[2025-02-22 00:41] LABS: INR 1.7; Prothrombin Time 20.2 Seconds (11.1-14.7)
[2025-02-22] MEDS: HEPARIN SOD/D5W 100 UNITS/ML 25,000 UNITS/250 ML BAG 19 UNITS IV CONT (01:15)
[2025-02-22 08:27] LABS: Hematocrit 33.3 % (37.0-47.0); Hemoglobin 10.3 g/dL (12.0-15.0); Immature Granulocyte Percent A 4.1 % (0-0.5); Lymphocytes Absolute Auto 0.93 K/mm3 (0.9-3.2); Mean Corpuscular HGB Conc 30.9 g/dl (32-36); Mean Corpuscular Hemoglobin 31.9 pg (26-34); Mean Corpuscular Volume 103.1 fl (80-100); Nucleated Red Blood Cells Absolute Auto 0.000 K/mm3 (0.0-0.012); Nucleated Red Blood Cells Perc 0.0 % (0.0-0.2); Platelet Count Result 376 k/mm3 (150-375); Red Blood Count 3.23 M/mm3 (4.2-5.4); White Blood Count 34.3 K/mm3 (4.5-10.0)
[2025-02-22 08:40] LABS: Alanine Aminotransferase 17 U/L (6-35); Albumin Level 2.3 g/dL (3.5-5.1); Alkaline Phosphatase 170 U/L (38-126); Aspartate Amino Transferase 29 U/L (14-36); Bilirubin,Total 0.5 mg/dL (0.2-1.3); Blood Urea Nitrogen 50 mg/dL (7-17); Carbon Dioxide 8 mmol/L (22-30); Estimated CRCL calculation 15 ml/min; Estimated Glomerular Filt Rate 11; Total Protein 5.5 g/dL (6.3-8.2)
[2025-02-22 09:07] LABS: Partial Thromboplastin Time > 200.0 Seconds (22.3-36.8)
[2025-02-22 09:10] LABS: Anion Gap 18 mmol/L (4-12); Calcium 8.6 mg/dL (8.4-10.2); Chloride 113 mmol/L (98-107); Glucose 87 mg/dL (65-110); Magnesium 2.2 mg/dL (1.6-2.3); Potassium 3.9 mmol/L (3.4-5.0); Sodium 139 mmol/L (137-145); Triglycerides 75 mg/dL (<150)
--- NOTE | 2025-02-22 11:20 | P.PNNP_ITS ---
Progress Note: A&P Assessment and Plan (1) Acute kidney injury: Code(s): N17.9 - Acute kidney failure, unspecified Status: Acute Assessment and Plan: * as noted on admission (creatinine 3.63mg/dl) * interestingly, associated with significant hypokalemia * transiently improved to 1.27mg/dl (on 02/12) * then started to progressively deteriorate again on 02/13 * suspect multifactorial etiology: * prerenal factors (poor oral intake) * infection/sepsis (bacteremia + UTI) * diuretic use * antibiotics (vancomycin toxicity?) * other? * evaluation to date noted: * normal renal ultrasound * urine electrolytes pre-renal * urine eosinophils negative * moderate proteinuria (~ 700mg) * CPK low * off IVFs due to concern of volume overload * significant acidosis noted as well (but refusing to take sodium bicarbonate tabs) * follow repeat labs and UOP (2) Stage 3 chronic kidney disease: Code(s): N18.30 - Chronic kidney disease, stage 3 unspecified Status: Chronic Assessment and Plan: * baseline creatinine runs ~ 1.0 - 1.5mg/dl * presumably due to hypertension, SIMEON, obesity, and age-related change (3) Altered mental status: Qualifiers: Altered mental status type: delirium Qualified Code(s): R41.0 - Disorientation, unspecified Code(s): R41.82 - Altered mental status, unspecified Status: Acute Assessment and Plan: * etiology not clear * possible issues include: * infection (bacteremia + fungal UTI) * previous hypoxia * previous SDH * electrolyte imbalance (low K+ but corrected) * psychiatric (known bipolar disorder) * CT of head without any acute findings * holding sedating medications * ongoing PT/OT/ST * follow trend of mentation (4) Sepsis: Code(s): A41.9 - Sepsis, unspecified organism Status: Acute Assessment and Plan: * due to several issues: * blood culture (1 set out of 2) with MRSA from 02/07 * possible pneumonia imaging (completed course of antibiotics) * fungal UTI [UA with budding yeast; urine culture with Val dubliniensis -- (fluconazole added 02/19 but patient refusing/not taking consistently] * repeat blood cultures (02/09 + 02/14) with no growth * respiratory pathogen panel positive for parainfluenza 3 * however worsening leukocytosis noted on 02/20 * CT C/A/P (on 02/20): showing airspace consolidation ground glass opacity throughout both lungs (correlate for interval element of pulmonary edema versus bilateral pneumonia); increasing small bilateral pleural effusions with bibasilar atelectatic change; new inflammatory change and/or fluid in the upper abdomen, suggestive of acute pancreatitis. * repeat blood cultures (02/20) with now growth to date * repeat urine culture (02/20) with no growth * meropenem added 02/20 * remains on vancomycin for MRSA bacteremia * continue supportive therapy (5) MRSA bacteremia: Code(s): R78.81 - Bacteremia; B95.62 - Methicillin resistant Staphylococcus aureus infection as the cause of diseases classified elsewhere Status: Acute Assessment and Plan: * as noted by culture data: * 1 out of 2 sets noted on 02/07 * repeat cultures to date negative * on vancomycin (6) UTI (urinary tract infection): Qualifiers: Hematuria presence: without hematuria Urinary tract infection type: a cute cystitis Qualified Code(s): N30.00 - Acute cystitis without hematuria Code(s): N39.0 - Urinary tract infection, site not specified Status: Acute Assessment and Plan: * admission UA (on 02/18) with 51-100 WB, 2+ LE and negative nitrates (but drawn from a [facility]) * urine culture with Val * on fluconazole (but refusing to take) (7) Pancreatitis: Code(s): K85.90 - Acute pancreatitis without necrosis or infection, unspecified Status: Acute Assessment and Plan: * incidental finding of 02/20 CT imaging: * new inflammatory change and/or fluid in the upper abdomen, suggestive of acute pancreatitis * lipase was 5561 with slow improvement * RUQ US showing no acute findings -- she is s/p cholecystectomy * benign exam and not complaining of abdominal pain * follow trend of lipase (8) DVT (deep venous thrombosis): Code(s): I82.409 - Acute embolism and thrombosis of unspecified deep veins of unspecified lower extremity Status: Acute Assessment and Plan: * dopplers of upper extremities and lower extremeties (on 02/20) noted: * negative for UEs * LEs with showing bilateral DVTs within the bilateral posterior tibial and peroneal veins. * on heparin gtt * switch to oral medication when patient taking oral medications reliably/consistently (9) Acute hypoxemic respiratory failure: Code(s): J96.01 - Acute respiratory failure with hypoxia Status: Acute Assessment and Plan: * resolved * thought to be secondary to acute CHF, pneumonia, and possibly refusal to wear CPAP * s/p diuresis with clinical improvement * weaned to room air * follow respiratory status closely given #1 (10) HTN (hypertension): Qualifiers: Hypertension type: essential hypertension Qualified Code(s): I10 - Essential (primary) hypertension Code(s): I10 - Essential (primary) hypertension Status: Chronic Assessment and Plan: * reasonable control * follow trend of hemodyamics (11) Diastolic dysfunction: Code(s): I51.89 - Other ill-defined heart diseases Status: Acute Assessment and Plan: * evidence of exacerbation earlier in hospital course * Cardiology recommendations noted * however, off lasix at this time due to #1 * follow volume status closely (12) Bipolar disorder: Qualifiers: Active/Remission status: currently active Code(s): F31.9 - Bipolar disorder, unspecified Status: Acute Assessment and Plan: * on Lamictal and sertraline * however, not taking regularly due to refusal at times * suspect may be playing a role with #3 * further intervention(?) Long extensive discussion (greater than 20 minutes) with the patient's by phone regarding her multitude of medical issues and problems including her worsening renal dysfunction. I voiced my concerns to him that if her kidney function continues to deteriorate or if she runs into issues/problems with regard to volume overload, critical electrolytes, resistant metabolic acidosis, or uremia, she may require renal replacement therapy/dialysis. Unfortunately, her worsening renal failure is complicated by her ongoing altered mental status/encephalopathy in association with poor oral intake without any significant improvement since her hospitalization began. He appeared to voice understanding to my concerns but seemed to be somewhat overwhelmed by the ongoing deterioration of his more recently although he stated that even prior to her recurrent falls she was having issues with her mentation which she attributes to her underlying bipolar disorder and associated psychiatric medications needed to treat this disease. Will continue to follow. L Subjective Date/time seen: 02/22/25 11:20 Interval history: Follow-up for acute kidney injury/acute renal failure on chronic kidney disease. Mentation seem a tad better today and she was verbally responsive to my questions today but was limited to yes/no responses; renal function/creatinie continue to worsen in association with declining urine output as well; she continues to refuse a great majority of her oral medications in association with ongoing poor oral intake as well. Exam 2 Narrative: General: somewhat ill-appearing female in NAD Heart: normal S1 and S2; no rub Lungs: coarse breath sounds Abdomen: soft, nontender, nondistended, positive bowel sounds Extremities: no cyanosis or clubbing; 1+ edema Skin: no rash Objective Data Vital Signs Vital Signs: Vital Signs Temp Pulse Resp BP Pulse Ox O2 Del Method O2 Flow Rate 02/22/25 10:47 97 02/22/25 08:24 71 20 02/22/25 08:20 95 Room Air 02/22/25 08:19 72 18 02/22/25 08:19 95 Room Air 02/22/25 08:00 96 02/22/25 08:00 95 Nasal Cannula 1 02/22/25 06:00 97.0 F L 99 18 135/66 94 02/22/25 04:00 99 02/22/25 00:00 102 H 02/21/25 22:00 97.6 F 104 H 18 148/64 H 97 02/21/25 20:46 77 18 02/21/25 20:40 73 18 02/21/25 20:40 96 Room Air 02/21/25 20:00 91 02/21/25 20:00 Room Air Intake/Output Intake/Output: Intake & Output 02/19/25 02/20/25 02/21/25 02/22/25 23:59 23:59 23:59 23:59 Intake Total 350 775.0 1202.2 290.2 Output Total 710 850 250 50 Balance -360 -75.0 952.2 240.2 Meds/Results Medications: Active Medications Generic Name Dose Route Start Last Admin Trade Name Freq PRN Reason Stop Dose Admin Acetaminophen 650 mg 02/07/25 15:41 02/07/25 20:34 Acetaminophen 325 Mg Tablet PO 650 mg Q4H PRN Administration Mild Pain (1-3) or Fever Artificial Tears 1 drop 02/08/25 09:32 Artificial Tears Ophth Soln 15 Ml Bottle EACH EYE 03/10/25 09:31 PRN PRN dry eye(s) Carvedilol 18.75 mg 02/08/25 09:00 02/22/25 10:47 Carvedilol 6.25 Mg Tablet PO Not Given Q12HR CARLIN Fluconazole 100 mg 02/19/25 09:55 02/22/25 10:47 Fluconazole 100 Mg Tablet PO Not Given QAM CARLIN Heparin Sodium (Porcine) 6,000 units 02/21/25 08:32 02/22/25 01:13 Heparin Sodium 5,000 Units/Ml Vial IV PUSH 6,000 units PRN PRN Administration aPTT less than 55 seconds Heparin Sodium (Porcine) 3,000 units 02/21/25 08:32 Heparin Sodium 5,000 Units/Ml Vial IV PUSH PRN PRN aPTT 55 - 70 seconds Meropenem 500 mg in 100 mls @ 200 mls/hr 02/20/25 10:30 02/22/25 12:36 IVPB 200 mls/hr Q12HR CARLIN Administration Heparin Sodium/Dextrose 25,000 units in 250 mls @ 15 mls/hr 02/21/25 08:35 02/22/25 17:47 Heparin Sodium/D5w 100 Units/Ml IV CONT 1,500 units/hr .[id number] CARLIN 15 mls/hr Administration Protocol Lamotrigine 200 mg 02/08/25 09:00 02/22/25 10:47 Lamotrigine 100 Mg Tablet PO Not Given Q12HR CARLIN Levalbuterol HCl 1.25 mg 02/11/25 20:00 02/22/25 14:21 Levalbuterol Neb 1.25 Mg/3 Ml INHALATION 1.25 mg Q6HRT CARLIN Administration Lorazepam 1 mg 02/09/25 15:15 02/15/25 10:49 Lorazepam (*Crx) 1 Mg Tablet PO 1 mg Q8H PRN Administration Anxiety Ondansetron HCl 4 mg 02/07/25 15:41 02/16/25 12:09 Ondansetron Inj 4 Mg/2 Ml Vial IV PUSH 4 mg Q4H PRN Administration Nausea Sodium Bicarbonate 1,300 mg 02/21/25 17:00 02/22/25 17:50 Sodium Bicarbonate Tab 650 Mg Tablet PO Not Given BID [facility] Radiology Results: ITS Impressions Head CT 02/07/25 18:39 Impression: No acute intracranial hemorrhage or suspicious mass effect. Modified Barium Swallow 02/14/25 11:22 IMPRESSION: Mild pharyngeal dysphagia with laryngeal penetration without aspiration. Please correlate with speech pathologist findings and specific feeding recommendations. Renal Ultrasound 02/19/25 15:09 IMPRESSION: 1. Normal kidneys without hydronephrosis. Chest/Abdomen/Pelvis CT 02/20/25 15:06 Impression: Airspace consolidation groundglass opacity throughout both lungs. Correlate for interval element of pulmonary edema versus bilateral pneumonia. Increasing small bilateral pleural effusions with bibasilar atelectatic change. New inflammatory change and/or fluid in the upper abdomen, suggestive of acute pancreatitis. Correlate clinically. Chest X-Ray 02/21/25 06:02 Impression: Probable patchy mild pulmonary edema pattern versus patchy bilateral pneumonia. Correlate clinically. Small right pleural effusion. Venous Doppler Study 02/21/25 07:40 IMPRESSION: Deep venous thrombosis within the bilateral posterior tibial and peroneal veins, as detailed above. Remainder of the examination is unremarkable. Upper Quadrant Ultrasound 02/21/25 12:03 IMPRESSION: Unremarkable limited ultrasound examination of the right upper quadrant, as detailed above. Labs Labs: Laboratory Tests 02/22/25 08:19 02/22/25 08:19 Calcium 8.6 Phosphorus 5.4 H Magnesium 2.2 Total Bilirubin 0.5 AST 29 ALT 17 Alkaline Phosphatase 170 H Total Protein 5.5 L Albumin 2.3 L Triglycerides 75 Vancomycin Trough 21.2 H Microbiology 02/20/25 17:39 Urine [place] Urine Culture - Final
[2025-02-22] MEDS: MEROPENEM 500 MG/NS 100 ML 500 MG/100 ML BAG 200 MG IVPB ×2 (12:36→20:07)
[2025-02-22] MEDS: LORazepam INJ (*CRX) 2 MG/ML VIAL 1 MG IV PUSH (12:48)
--- NOTE | 2025-02-22 13:19 | P.PSYCH_ITS ---
Assessment and Plan Assessment and plan (1) Altered mental status: Qualifiers: Altered mental status type: delirium Qualified Code(s): R41.0 - Disorientation, unspecified Code(s): R41.82 - Altered mental status, unspecified Status: Acute (2) Bipolar disorder: Qualifiers: Active/Remission status: currently active Code(s): F31.9 - Bipolar disorder, unspecified Status: Acute Assessment and Plan: if the patient goes 4 days without Lamictal she will need to restart at 25 mg po daily for 2 weeks then increase to 50 mg po daily for 2 weeks then increase to 100 mg daily for 2 weeks then 200 mg daily. If she is from [facility] this medication will need to be followed closely by a psychiatric care provider to assess for Patel-Kaushal syndrome. she should not be on an SNRI or SSRI without a medication for mood stabilization. discontinue duloxetine and sertraline until a mood stabilizer is able to be administered. bipolar patients should not be on an SNRI and an SSRI without close monitoring for risk of jose induction. I would suggest that when she is able to take PO medication reintroduce Lamictal taper until back to 200 mg daily before reintroducing sertraline 100 mg daily. if (3) Delirium due to another medical condition: Code(s): F05 - Delirium due to known physiological condition Status: Acute Plan psychiatric recommendation: hold sertraline until back on mood stabilizer or antipsychotic: Sertraline can be part of bipolar depression treatment but never alone. discontinue Cymbalta- Severe CKD or end-stage renal disease: Duloxetine is generally not recommended or should be used very cautiously because it may accumulate and increase risk of adverse effects. if 4 days are missed on lamictal, titration is required- If 4 days of Lamictal is missed it is required to titrate related to risk of Patel-Kaushal Syndrome. 25 mg daily ? 2 weeks 50 mg ? 2 weeks 100 mg ? 2 weeks 200 mg target dose. ruled out: not catatonia ammonia level >9 not jose Although altered mental status is most likely due to medical conditions, bipolar disorder/delirium can be managed by initiating Haldol IV or IM. Haldol 0.25 mg IV or IM q8?12h PRN- safer first line treatment for delirium Use Zyprexa only if EPS or Haldol side effects are limiting, or if there's clear need for mood stabilization and agitation control. *Zyprexa can NOT be used with IV Ativan because of risk of respiratory depression* Haldol safety: Use the lowest effective dose Avoid over-sedation or worsening of delirium Treat both behavioral agitation and psychotic symptoms if present Monitor for QTc prolongation, EPS, neuroleptic sensitivity GOAL: reinitiate Lamictal (with titration) once patient is able to take medication PO. Continue treatment of underlying medical conditions. If a re-evaluation of psychiatric status is needed, please reconsult psychiatry after medical stabilization. non-pharmocollogical interventions: Frequent reorientation & cognitive stimulation Ensure adequate hydration and nutrition Promote normal sleep-wake cycles (daylight exposure, minimize night disruptions) Mobilize early (PT/OT involvement) Minimize restraints, use sitter if needed Provide glasses and hearing aids Manage pain adequately (non-opioid preferred) Avoid or reduce psychoactive meds (benzodiazepines, anticholinergics, opioids) HPI Data of Consult Date/Time: 02/22/25 13:19 Requesting Physician: Dionisio Greenfield MD Primary Care Provider: Nikolas Arnett, DO Consult Narrative Narrative: lab results point strongly to a medical cause (e.g., renal failure, sepsis, acidosis, coagulopathy) Bipolar disorder should still be considered, especially: * If the patient has missed meds * Has poor insight/refuses care * Or has a history of manic or depressive episodes affecting behavior But medical causes must be ruled out and stabilized first. Leydi Su is a 69 year old female with Altered mental status ? evaluate for psychiatric contribution in patient with known bipolar disorder. Patient presents with symptoms of altered mental status. Symptoms include selective mutism, refusal to eat or drink, and clenched fists. Patient has multiple comorbidities that could contribute to her presentation, including recent acute kidney injury, metabolic acidosis, uremia, anemia, sepsis. She has been hospitalized since February 08, with worsening symptoms over the last 5 days. Previously, she was confused and combative, requiring restraints and a sitter. Medication non-adherence is noted, with Lamictal (lamotrigine) not administered since February 19. She's not eating, not drinking, and won't communicate. She talks to herself but closes her eyes when approached, she occasionally sings to herself in the room. History of fall with brain bleed. she has multiple DVTs and is on heparin gtt. She's been here since February 08. Very edematous. When first admitted, was confused and combative, required restraints and sitter. Hasn't had Lamictal since the - needs to stop if more than 4 days without it due to Rudolph- Kaushal risk. 1. Severe metabolic acidosis CO? (bicarbonate): 8 (very low) Anion gap: 18 (elevated) Likely cause: uremia, sepsis, or lactic acidosis Effect on brain: Metabolic acidosis reduces cerebral perfusion and neuronal function ? confusion, agitation, lethargy, coma. 2. Uremia (Advanced renal failure) Creatinine: 3.98 eGFR: 11 Stage 5 CKD Phosphorus: 5.4 Albumin: 2.3 Effect on brain: Accumulated toxins (uremic encephalopathy) can cause AMS, asterixis, seizures. 3. Sepsis or systemic infection WBC: 34.3 Abs Neuts: 29.9 Immat Granulocytes: 1.41 Effect on brain: Inflammatory cytokines and poor perfusion septic encephalopathy 4. Coagulopathy / DIC / Microvascular issues PT: 20.2 APTT: 200- on heparin Effect: Risk of intracerebral bleeding or microthrombi (DIC), leading to confusion or coma. 5. Hypoalbuminemia & malnutrition Albumin: 2.3 Total Protein: 5.5 Contributes to edema, poor drug clearance, hepatic encephalopathy (if liver dysfunction is present). clots can form in cerebral vessels, reducing blood flow. leads to ischemia, confusion, delirium, or coma. 6. Anemia Hgb: 10.3 Hct: 33.3 May worsen hypoxia in the brain, especially if other perfusion issues are present. Review of Systems 2 Constitutional: Constitutional: Reports anorexia and Reports weakness C omments: refusal to eat. Cardiovascular: Cardiovascular: Reports edema Respiratory: Comments: crackles Neurologic: Reports behavioral changes, Reports confusion and Reports weakness Psychiatric: Psychiatric: Reports change in appetite, Reports confusion and Reports irritability PMFSH Past Medical History Medical History CKD (chronic kidney disease) Nocturnal oxygen desaturation Body mass index (BMI) of 40.1-44.9 in adult Deafness in left ear JERED (iron deficiency anemia) Lymphedema Dysuria Fracture of left upper extremity Distal radius fracture, left July 2020 Shortness of Breath Decreased diffusion capacity History of tobacco abuse Exercise hypoxemia Brain tumor HTN (hypertension) Obstructive sleep apnea on CPAP Bipolar 1 disorder SIMEON (obstructive sleep apnea) With CPAP use GERD (gastroesophageal reflux disease) Depression Anxiety Surgical History Surgical History History of bladder suspension procedure March 2017 Hx of tonsillectomy History of brain surgery 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 She has 3 children. She is disabled. She quit smoking 5 years ago. The patient denies any marijuana alcohol or illicit drugs. Her is a durable power employment attorney for healthcare. Primary care physician: Dr. Yannick Umanzor Code status: Full code Smoking packs per day: 1 Smoking cigarettes per day: 20.0 Years smoked: 40 Smoking pack-years: 40.00 Smoking status: Former smoker Tobacco type: cigarettes Second hand tobacco smoke exposure: No Smoking end date: 08/23/14 Alcohol intake: never Substance use: never Substance use type: does not use Do You Feel Safe in your Home?: Yes Lack of Transportation: YES Lack of Food: Never True Current Housing: I Have Housing Concerned About Future Housing: No Difficulty Paying Gas/Electric Bills: No Difficulty Paying for Meds: No Currently Unemployed: No Education: Associate Degree Difficulty w/ Childcare or Family Care: No Living arrangements: with family Additional living arrangements comments: [facility] Occupation/Education: retired Additional occupation/education comments: 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 Gender identity (if verbalized by the patient): Female Spiritual care concerns: No Meds Home Medications and Allergies Home Medications ?Medication ?Instructions ?Recorded ?Confirmed ?Type duloxetine 60 mg capsule,delayed 60 mg PO Q12H 01/21/21 02/07/25 History release (Cymbalta) Overnight Ox #1 ea 05/13/22 02/07/25 Rx albuterol sulfate 90 mcg/actuation 1 - 2 puff inhalation Q4-6H PRN 02/08/23 02/07/25 Rx aerosol inhaler shortness of breath or wheezing #8.5 grams ascorbic acid (vitamin C) 1,000 mg 1 g PO DAILY 09/08/23 02/07/25 History chewable tablet aspirin 81 mg tablet,delayed 81 mg PO DAILY 09/08/23 02/07/25 History release carvedilol 12.5 mg tablet 18.75 mg PO Q12H 09/08/23 02/07/25 History ferrous sulfate 325 mg (65 mg 325 mg PO DAILY 09/08/23 02/07/25 History iron) tablet lamotrigine 200 mg tablet 200 mg PO Q12H 09/08/23 02/07/25 History oxybutynin chloride 10 mg 10 mg PO DAILY 09/08/23 02/07/25 History tablet,extended release 24 hr sertraline 100 mg tablet 100 mg PO DAILY 09/08/23 02/07/25 History varenicline tartrate 0.03 mg/spray 0.03 mg intranasal Q12H 03/14/24 02/07/25 History metered nasal spray (Tyrvaya) acetaminophen 325 mg capsule 650 mg PO Q4H PRN pain (scale 12/20/24 02/07/25 History score 1-3) hydrochlorothiazide 12.5 mg tablet 12.5 mg PO QAM #90 tabs 01/17/25 02/07/25 Rx hydrocodone 5 mg-acetaminophen 325 1 tablet PO Q6H PRN pain #12 tabs 01/22/25 02/07/25 Rx mg tablet inulin 1.7 gram chewable tablet 3.4 g PO DAILY 02/07/25 02/07/25 History (Fiber Gummies) lorazepam 2 mg tablet 2 mg PO TID 02/07/25 02/07/25 History menthol 0.44 %-zinc oxide 20.6 % 1 applic topical DAILY PRN skin 02/07/25 02/07/25 History topical ointment (CalaSoothe) irritation polyethylene glycol 3350 17 17 g PO DAILY PRN constipation 02/07/25 02/07/25 History gram/dose oral powder polyvinyl alcohol-povidone 0.5 1 drp EACH EYE Q60M PRN dry eye(s) 02/07/25 02/07/25 History %-0.6 % eye drops (Artificial Tears (polyvinyl alcohol/povidone)) semaglutide (weight loss) 1 mg/0.5 1 mg subcut .biweekly 02/07/25 02/07/25 History mL subcutaneous pen injector (Wegovy) sennosides 8.6 mg capsule (senna) 8.6 mg PO HS 02/07/25 02/07/25 History Allergies Allergy/AdvReac Type Severity Reaction Status Date / Time acyclovir (From Zovirax) Allergy Severe Hives Verified 02/07/25 18:44 Iodinated Contrast Media Allergy Intermediate Rash Verified 02/07/25 18:44 omeprazole (From Prilosec) AdvReac Intermediate hyperventil Verified 02/07/25 18:44 ate Vital Signs Vital Signs - 24 hr 02/21/25 13:48 02/21/25 13:54 02/21/25 16:00 Temperature Pulse Rate 87 81 88 Respiratory Rate 18 20 Blood Pressure Pulse Oximetry Oxygen Delivery Oxygen Flow Rate 02/21/25 20:00 02/21/25 20:00 02/21/25 20:40 Temperature Pulse Rate 91 Respiratory Rate Blood Pressure Pulse Oximetry 96 Oxygen Delivery Room Air Room Air Oxygen Flow Rate 02/21/25 20:40 02/21/25 20:46 02/21/25 22:00 Temperature 97.6 F Pulse Rate 73 77 104 H Respiratory Rate 18 18 18 Blood Pressure 148/64 H Pulse Oximetry 97 Oxygen Delivery Oxygen Flow Rate 02/22/25 00:00 02/22/25 04:00 02/22/25 06:00 Temperature 97.0 F L Pulse Rate 102 H 99 99 Respiratory Rate 18 Blood Pressure 135/66 Pulse Oximetry 94 Oxygen Delivery Oxygen Flow Rate 02/22/25 08:00 02/22/25 08:00 02/22/25 08:19 Temperature Pulse Rate 96 Respiratory Rate Blood Pressure Pulse Oximetry 95 95 Oxygen Delivery Nasal Cannula Room Air Oxygen Flow Rate 1 02/22/25 08:19 02/22/25 08:20 02/22/25 08:24 Temperature Pulse Rate 72 71 Respiratory Rate 18 20 Blood Pressure Pulse Oximetry 95 Oxygen Delivery Room Air Oxygen Flow Rate 02/22/25 10:47 Temperature Pulse Rate 97 Respiratory Rate Blood Pressure Pulse Oximetry Oxygen Delivery Oxygen Flow Rate Exam 2 Neuro: General: moves all extremities and confusion Cognition (Neuro): a bnormal cognition Speech: Other speech findings present (Neuro) Gait exam (Neuro): Unable to assess gait Extrem: General: edema and vascular access Right lower extremity: edema Left lower extremity: edema Psych: Appearance: disheveled Speech and movement: Other speech and movement exam findings present (Psych) Attitude: Guarded attititude/behavior present and Refuses to answer (attititude/behavior) Insight: Poor insight present (Psych) Judgement: Poor judgement present (Psych) Other: * Appearance: Edematous. Eyes closed on initial assessment, later opened. No unusual clothing or grooming noted. * Behavior: Guarded and hesitant. Initially non-cooperative, with eyes closed. Became intermittently responsive. Withdrew from painful stimulus. Independent facial scratching noted. * Level of Consciousness: Awake but with altered mental status. Alertness fluctuates. * Orientation: Not oriented to self; orientation to place and time not confirmed due to inappropriate responses. * Speech: Clear articulation but sparse output. Responses were often inappropriate or inconsistent. Did not speak in full sentences. * Mood: Unable to assess due to poor verbalization and inconsistency in responses. * Affect: Guarded, suspicious. Blunted or restricted; incongruent at times (e.g., smiled with mouth closed when asked to smile with teeth). * Thought Process: Disorganized. Responses to questions were inconsistent and often unrelated. Hesitant to follow directions. * Thought Content: Unable to assess for delusions, paranoia, or hallucinations. No overt signs of psychosis observed during evaluation. * Perception: No observable signs of hallucinations. Unable to confirm due to patient?s guardedness and inconsistent communication. * Insight: Impaired. Denied taking prescribed medications (Zoloft, Lamictal, Cymbalta) despite documentation indicating otherwise. * Judgment: Impaired. Refused medications. Inconsistent behavior (e.g., stated she was hungry, then refused food). * Memory: Poor historian. Impaired recall for medical history and current medications. * Cognition: Global cognitive impairment suspected. Poor attention, inconsistent responses. * Psychomotor: No abnormal movements noted. Able to use all extremities. * Pain Behavior: Reported pain but unable/unwilling to specify location. * Safety Risk: Medication refusal and impaired judgment raise concern for self- care deficits. Results Labs 02/22/25 08:19 02/22/25 08:19 Labs: Short CBC 02/22/25 Range/Units 08:19 WBC 34.3 H (4.5-10.0) K/mm3 Hgb 10.3 L (12.0-15.0) g/dL Hct 33.3 L (37.0-47.0) % Plt Count 376 H (150-375) k/mm3 BMP 02/22/25 08:19 Sodium 139 Potassium 3.9 Chloride 113 H Carbon Dioxide 8 L BUN 50 H Creatinine 3.98 H Glucose 87 Calcium 8.6 Liver Function 02/22/25 Range/Units 08:19 Total Bilirubin 0.5 (0.2-1.3) mg/dL AST 29 (14-36) U/L ALT 17 (6-35) U/L Alkaline Phosphatase 170 H (38-126) U/L Albumin 2.3 L (3.5-5.1) g/dL
[2025-02-22 15:57] LABS: Ammonia < 9 umol/L (9-30)
[2025-02-22 16:21] LABS: Partial Thromboplastin Time > 200.0 Seconds (22.3-36.8)
--- NOTE | 2025-02-22 16:22 | P.PNIM_ITS ---
Progress Note: A&P Assessment and Plan (1) Altered mental status: Qualifiers: Altered mental status type: delirium Qualified Code(s): R41.0 - Disorientation, unspecified Code(s): R41.82 - Altered mental status, unspecified Status: Acute Assessment and Plan: Infection verses stroke versus electrolyte imbalance versus other (psych) CT head no acute findings Holding sedating medications until more alert Psych evaluation performed and appreciate their input. Haldol recomended to control mood disorder PT/OT/ST (2) Sepsis: Code(s): A41.9 - Sepsis, unspecified organism Status: Acute Assessment and Plan: Possible pneumonia vs UTI CXR concerning for PNA vs edema. BCx 02/07 positive for MRSA. TTE neg for endocarditis. per cardiology if repeat B/C neg no need for QI BCx 02/09 and 02/14 negative Pulmonary team was on board Respiratory pathogen panel positive for parainfluenza 3 IV antibiotics: -- Rocephin 02/07-, vancomycin started 02/09, Flagyl 02/11- -- Cefepime started 02/13 and completed a course on 02/19 WBC elevated but stable 16-20K range until 02/20 with WBC to 29K CT chest/Abd/Pelvis 02/20 showing airspace consolidation groundglass opacity throughout both lungs. Correlate for interval element of pulmonary edema versus bilateral pneumonia. Increasing small bilateral pleural effusions with bibasilar atelectatic change. New inflammatory change and/or fluid in the upper abdomen, suggestive of acute pancreatitis. UA with budding yeast with UCx 02/18 growing 10-49K Val dubliniensis. Fluconazole added 02/19 but patient refusing BCx 02/20 NGTD UCx 02/20 Negative Meropenem added 02/20 Remains on vancomycin for MRSA bacteremia Day 14 Consider pancreatitis as reason for elevated WBC. No diarrhea or evidence of colitis to suggest CDIff. Covering MRSA, pseudomonas and ESBL. Doubt viral or fungal. No fevers. Continue meropenem and vancomycin (3) MRSA bacteremia: Code(s): R78.81 - Bacteremia; B95.62 - Methicillin resistant Staphylococcus aureus infection as the cause of diseases classified elsewhere Status: Acute Assessment and Plan: As above (4) Pancreatitis: Code(s): K85.90 - Acute pancreatitis without necrosis or infection, unspecified Status: Acute Assessment and Plan: Patient with incidental finding of CT Abd/Pelvis showing new inflammatory change and/or fluid in the upper abdomen, suggestive of acute pancreatitis. Lipase was 5561. Repeat level trending down. RUQ US showing no acute findings. She is s/p cholecystectomy. TG level normal. Exam relatively benign. Pancratitis related to meds? Trend lipase. Continue diet (5) JERRY (acute kidney injury): Code(s): N17.9 - Acute kidney failure, unspecified Status: Acute Assessment and Plan: Cr mostly 1.2-1.5 range through December 2024. Cr 3.6 on admission and did improve to 1.3 a few days after admission but has since been climbing. IV fluids and lasix on hold I/O: +11L. Concerning for fluid overload on exam and by imaging. BNP 27K (BNP 3K in October) Renal US unremarkable Prot/Cr 0.7gm. Kasandra 18. FENa 0.2% Vanc troughs elevated and likely indicated vanc toxicity? No contrast given since admission. Nephrology following and discussed; appreciate their input. She is not eating Creatinine up to 4 with severe metabolic acidosis (AG 8). Potassium okay Na Bicarb added but she is not taking meds Continue to monitor UOP, renal function and electrolytes. Add IV bicarb? (6) DVT (deep venous thrombosis): Code(s): I82.409 - Acute embolism and thrombosis of unspecified deep veins of unspecified lower extremity Status: Acute Assessment and Plan: Doppler of the LUE negative for DVT Doppler of the bilateral LE showing bilateral DVT within the bilateral posterior tibial and peroneal veins. She is high risk for propagation to above the knee Changed to Heparin gtt Monitor. Change to oral agent when able (7) Acute hypokalemia: Code(s): E87.6 - Hypokalemia Status: Acute Assessment and Plan: Potassium was replaced. Levels normalized Continue monitoring (8) UTI (urinary tract infection): Qualifiers: Hematuria presence: without hematuria Urinary tract infection type: acute cystitis Qualified Code(s): N30.00 - Acute cystitis without hematuria Code(s): N39.0 - Urinary tract infection, site not specified Status: Acute Assessment and Plan: UA 02/18 showing 51-100 WB, 2+ LE and negative nitrates but drawn from a Castro Could be causing altered mental status but felt more psych related now UCx growing Val and fluconazole added (but patient refusing) Currently on meropenem and vanco UCx 02/20 negative. (9) Diarrhea: Code(s): R19.7 - Diarrhea, unspecified Status: Acute Assessment and Plan: Likely cause of acute dehydration and hypokalemia Negative for C diff Imodium once on 02/12. Resolved (10) Bipolar disorder: Qualifiers: Active/Remission status: currently active Code(s): F31.9 - Bipolar disorder, unspecified Status: Acute Assessment and Plan: Patient on Lamictal, duloxatine and sertraline but not taking regularly Duloxatine and sertraline stopped since not taking lamictal. Plan to cut back lamictal dose tomorrow (day 4 of not taking meds) if remains noncompliant Psych consulted and appreciate their input (11) HTN (hypertension): Qualifiers: Hypertension type: essential hypertension Qualified Code(s): I10 - Essential (primary) hypertension Code(s): I10 - Essential (primary) hypertension Status: Chronic Assessment and Plan: Patient's blood pressure was reviewed on 02/22 Blood pressure remains well controlled. Will continue to monitor (12) Diastolic dysfunction: Code(s): I51.89 - Other ill-defined heart diseases Status: Acute Assessment and Plan: Acute on chronic HFpEF dc 'd lasix due to JERRY cardiology team on board (13) Obstructive sleep apnea on CPAP: Code(s): G47.33 - Obstructive sleep apnea (adult) (pediatric); Z99.89 - Dependence on other enabling machines and devices Status: Acute Assessment and Plan: Does not appear to be on home CPAP (14) NSTEMI (non-ST elevated myocardial infarction): Code(s): I21.4 - Non-ST elevation (NSTEMI) myocardial infarction Status: Acute Assessment and Plan: Troponin: 0.287-0.364 Likely demand ischemia monitor for now Cardiology team on board (15) Acute hypoxemic respiratory failure: Code(s): J96.01 - Acute respiratory failure with hypoxia Status: Acute Assessment and Plan: Patieint with SOB and hypoxia 02/12 up to 4L. [place] related to CHF with her weight gain, imaging findings and BNP 28K. Patient received Lasix 40 on 02/12 in the evening. There is no evidence of hypercarbic respiratory failure with ABG on 4 L 7.45/32/57. Weaned to room air. Follow Plan DVT prophylaxis on Heparin Code status - full Subjective Date/time seen: 02/22/25 16:22 Interval history: 69yo female history of bipolar 1, hypertension, brain tumor, iron deficiency anemia, CKD and SIMEON presents to the hospital with altered mental status from a custodial. Remains nonverbal and not cooperative. Refusing oral meds. Review of Systems Review of Systems: ROS unobtainable: Yes unobtainable due to mental status Exam Narrative: AF 97.0 135/66 81 20 95% ra Gen - NARD HEENT - Resists eye exam. Chest - lungs clear anteriorly with faint crackles in the base CV - RRR S1/S2 with systolic murmur left USB Abd - Soft, upper abd tenderness with some guarding - Castro secured draining clear yellow urine Ext - 1-2+ pitting UE+LE edema Neuro - does not respond to questions or follow commands Psych - odd affect Skin - Warm and dry Objective Data Vital Signs Vital Signs: Vital Signs - 24 hr 02/21/25 20:00 02/21/25 20:00 02/21/25 20:40 Temperature Pulse Rate 91 Respiratory Rate Blood Pressure Pulse Oximetry 96 Oxygen Delivery Room Air Room Air Oxygen Flow Rate 02/21/25 20:40 02/21/25 20:46 02/21/25 22:00 Temperature 97.6 F Pulse Rate 73 77 104 H Respiratory Rate 18 18 18 Blood Pressure 148/64 H Pulse Oximetry 97 Oxygen Delivery Oxygen Flow Rate 02/22/25 00:00 02/22/25 04:00 02/22/25 06:00 Temperature 97.0 F L Pulse Rate 102 H 99 99 Respiratory Rate 18 Blood Pressure 135/66 Pulse Oximetry 94 Oxygen Delivery Oxygen Flow Rate 02/22/25 08:00 02/22/25 08:00 02/22/25 08:19 Temperature Pulse Rate 96 Respiratory Rate Blood Pressure Pulse Oximetry 95 95 Oxygen Delivery Nasal Cannula Room Air Oxygen Flow Rate 1 02/22/25 08:19 02/22/25 08:20 02/22/25 08:24 Temperature Pulse Rate 72 71 Respiratory Rate 18 20 Blood Pressure Pulse Oximetry 95 Oxygen Delivery Room Air Oxygen Flow Rate 02/22/25 10:47 02/22/25 14:22 02/22/25 14:29 Temperature Pulse Rate 97 78 81 Respiratory Rate 20 20 Blood Pressure Pulse Oximetry Oxygen Delivery Oxygen Flow Rate Intake/Output Intake/Output: Intake & Output 02/19/25 02/20/25 02/21/25 02/22/25 23:59 23:59 23:59 23:59 Intake Total 350 775.0 1202.2 290.2 Output Total 710 850 250 50 Balance -360 -75.0 952.2 240.2 Meds/Results Medications: Active Medications Generic Name Dose Route Start Last Admin Trade Name Freq PRN Reason Stop Dose Admin Acetaminophen 650 mg 02/07/25 15:41 02/07/25 20:34 Acetaminophen 325 Mg Tablet PO 650 mg Q4H PRN Administration Mild Pain (1-3) or Fever Artificial Tears 1 drop 02/08/25 09:32 Artificial Tears Ophth Soln 15 Ml Bottle EACH EYE 03/10/25 09:31 PRN PRN dry eye(s) Carvedilol 18.75 mg 02/08/25 09:00 02/22/25 10:47 Carvedilol 6.25 Mg Tablet PO Not Given Q12HR [facility] Fluconazole 100 mg 02/19/25 09:55 02/22/25 10:47 Fluconazole 100 Mg Tablet PO Not Given QAM [facility] Heparin Sodium (Porcine) 6,000 units 02/21/25 08:32 02/22/25 01:13 Heparin Sodium 5,000 Units/Ml Vial IV PUSH 6,000 units PRN PRN Administration aPTT less than 55 seconds Heparin Sodium (Porcine) 3,000 units 02/21/25 08:32 Heparin Sodium 5,000 Units/Ml Vial IV PUSH PRN PRN aPTT 55 - 70 seconds Meropenem 500 mg in 100 mls @ 200 mls/hr 02/20/25 10:30 02/22/25 12:36 IVPB 200 mls/hr Q12HR CARLIN Administration Heparin Sodium/Dextrose 25,000 units in 250 mls @ 17 mls/hr 02/21/25 08:35 02/22/25 12:52 Heparin Sodium/D5w 100 Units/Ml IV CONT Not Given .[id number] [facility] Protocol Lamotrigine 200 mg 02/08/25 09:00 02/22/25 10:47 Lamotrigine 100 Mg Tablet PO Not Given Q12HR CARLIN Levalbuterol HCl 1.25 mg 02/11/25 20:00 02/22/25 14:21 Levalbuterol Neb 1.25 Mg/3 Ml INHALATION 1.25 mg Q6HRT CARLIN Administration Lorazepam 1 mg 02/09/25 15:15 02/15/25 10:49 Lorazepam (*Crx) 1 Mg Tablet PO 1 mg Q8H PRN Administration Anxiety Ondansetron HCl 4 mg 02/07/25 15:41 02/16/25 12:09 Ondansetron Inj 4 Mg/2 Ml Vial IV PUSH 4 mg Q4H PRN Administration Nausea Sodium Bicarbonate 1,300 mg 02/21/25 17:00 02/22/25 10:48 Sodium Bicarbonate Tab 650 Mg Tablet PO Not Given BID [facility] Radiology Results: ITS Impressions Head CT 02/07/25 18:39 Impression: No acute intracranial hemorrhage or suspicious mass effect. Modified Barium Swallow 02/14/25 11:22 IMPRESSION: Mild pharyngeal dysphagia with laryngeal penetration without aspiration. Please correlate with speech pathologist findings and specific feeding recommendations. Renal Ultrasound 02/19/25 15:09 IMPRESSION: 1. Normal kidneys without hydronephrosis. Chest/Abdomen/Pelvis CT 02/20/25 15:06 Impression: Airspace consolidation groundglass opacity throughout both lungs. Correlate for interval element of pulmonary edema versus bilateral pneumonia. Increasing small bilateral pleural effusions with bibasilar atelectatic change. New inflammatory change and/or fluid in the upper abdomen, suggestive of acute pancreatitis. Correlate clinically. Chest X-Ray 02/21/25 06:02 Impression: Probable patchy mild pulmonary edema pattern versus patchy bilateral pneumonia. Correlate clinically. Small right pleural effusion. Venous Doppler Study 02/21/25 07:40 IMPRESSION: Deep venous thrombosis within the bilateral posterior tibial and peroneal veins, as detailed above. Remainder of the examination is unremarkable. Upper Quadrant Ultrasound 02/21/25 12:03 IMPRESSION: Unremarkable limited ultrasound examination of the right upper quadrant, as detailed above. Labs Labs: Laboratory Results - last 24 hr 02/21/25 02/22/25 02/22/25 17:10 00:22 08:19 WBC 34.3 H RBC 3.23 L Hgb 10.3 L Hct 33.3 L MCV 103.1 H D MCH 31.9 MCHC 30.9 L RDW 20.8 H Plt Count 376 H MPV 9.4 Immature Gran % (Auto) 4.1 H Neut % (Auto) 87.1 H Lymph % (Auto) 2.7 L Burke % (Auto) 5.5 Eos % (Auto) 0.1 Baso % (Auto) 0.5 Lymph # (Auto) 0.93 Burke # (Auto) 1.9 H Eos # (Auto) 0.0 Baso # (Auto) 0.2 H Abs Immat Gran (auto) 1.41 H Absolute Neuts (auto) 29.9 H Absolute Nucleated RBC 0.000 Nucleated RBC % 0.0 PT 18.3 H 20.2 H INR 1.5 1.7 APTT > 200.0 H* Sodium 139 Potassium 3.9 Chloride 113 H Carbon Dioxide 8 L Anion Gap 18 H BUN 50 H Creatinine 3.98 H Estim Creat Clear Calc 15 Estimated GFR 11 L Glucose 87 Calcium 8.6 Phosphorus 5.4 H Magnesium 2.2 Total Bilirubin 0.5 AST 29 ALT 17 Alkaline Phosphatase 170 H Ammonia Total Protein 5.5 L Albumin 2.3 L Triglycerides 75 Vancomycin Trough 21.2 H 02/22/25 15:35 WBC RBC Hgb Hct MCV MCH MCHC RDW Plt Count MPV Immature Gran % (Auto) Neut % (Auto) Lymph % (Auto) Burke % (Auto) Eos % (Auto) Baso % (Auto) Lymph # (Auto) Burke # (Auto) Eos # (Auto) Baso # (Auto) Abs Immat Gran (auto) Absolute Neuts (auto) Absolute Nucleated RBC Nucleated RBC % PT INR APTT > 200.0 H* Sodium Potassium Chloride Carbon Dioxide Anion Gap BUN Creatinine Estim Creat Clear Calc Estimated GFR Glucose Calcium Phosphorus Magnesium Total Bilirubin AST ALT Alkaline Phosphatase Ammonia < 9 L Total Protein Albumin Triglycerides Vancomycin Trough
[2025-02-22] MEDS: HEPARIN SOD/D5W 100 UNITS/ML 25,000 UNITS/250 ML BAG 15 UNITS IV CONT ×2 (17:47→20:05)
[2025-02-22 23:26] LABS: Lipase 300 U/L (23-300)
[2025-02-22 23:52] LABS: Partial Thromboplastin Time > 200.0 Seconds (22.3-36.8)
[2025-02-23] VITALS (13 sets, daily range): BP systolic 116–138; BP diastolic 42–66; PULSE 90–103; RESP 16–20; TEMP 36.4–36.6; O2SAT 92–97
[2025-02-23 06:54] LABS: Hematocrit 27.3 % (37.0-47.0); Hemoglobin 8.8 g/dL (12.0-15.0); Immature Granulocyte Percent A 5.5 % (0-0.5); Lymphocytes Absolute Auto 0.99 K/mm3 (0.9-3.2); Mean Corpuscular HGB Conc 32.2 g/dl (32-36); Mean Corpuscular Hemoglobin 31.4 pg (26-34); Mean Corpuscular Volume 97.5 fl (80-100); Nucleated Red Blood Cells Absolute Auto 0.040 K/mm3 (0.0-0.012); Nucleated Red Blood Cells Perc 0.1 % (0.0-0.2); Platelet Count Result 371 k/mm3 (150-375); Red Blood Count 2.80 M/mm3 (4.2-5.4); White Blood Count 29.7 K/mm3 (4.5-10.0)
[2025-02-23 07:11] LABS: Alanine Aminotransferase 17 U/L (6-35); Albumin Level 2.4 g/dL (3.5-5.1); Alkaline Phosphatase 161 U/L (38-126); Anion Gap 13 mmol/L (4-12); Aspartate Amino Transferase 36 U/L (14-36); Bilirubin,Total 0.5 mg/dL (0.2-1.3); Blood Urea Nitrogen 59 mg/dL (7-17); Calcium 8.4 mg/dL (8.4-10.2); Carbon Dioxide 13 mmol/L (22-30); Chloride 113 mmol/L (98-107); Estimated CRCL calculation 17 ml/min; Estimated Glomerular Filt Rate 13; Glucose 95 mg/dL (65-110); Lipase 334 U/L (23-300); Magnesium 2.3 mg/dL (1.6-2.3); Potassium 3.7 mmol/L (3.4-5.0); Sodium 139 mmol/L (137-145); Total Protein 5.5 g/dL (6.3-8.2)
[2025-02-23 07:31] LABS: Partial Thromboplastin Time > 200.0 Seconds (22.3-36.8)
--- NOTE | 2025-02-23 08:09 | PC.NURSE ---
Dr Barron notified of ptt >200 at Q6 hour ptt since heparin was started.
[2025-02-23] MEDS: MEROPENEM 500 MG/NS 100 ML 500 MG/100 ML BAG 200 MG IVPB ×2 (09:20→20:23)
--- NOTE | 2025-02-23 10:37 | PC.NURSE ---
Dr Barron notified of brown/ rust drainage around mouth that was not there previous assessment. Patient refused all po meds other then i was able to her to take one bite of pudding with lamictal in it.
[2025-02-23 10:49] LABS: Hematocrit 27.9 % (37.0-47.0); Hemoglobin 8.9 g/dL (12.0-15.0)
[2025-02-23] MEDS: FAMOTIDINE 20 MG/2 ML VIAL IV PUSH ×2 (10:57→20:23)
[2025-02-23] MEDS: FLUCONAZOLE 100 MG/NACL 50 ML 100 MG/50 ML BTL 50 MG IVPB (11:01)
--- NOTE | 2025-02-23 11:31 | P.PNNP_ITS ---
Progress Note: A&P Assessment and Plan (1) Acute kidney injury: Code(s): N17.9 - Acute kidney failure, unspecified Status: Acute Assessment and Plan: * as noted on admission (creatinine 3.63mg/dl) * interestingly, associated with significant hypokalemia * transiently improved to 1.27mg/dl (on 02/12) * then started to progressively deteriorate again on 02/13 * suspect multifactorial etiology: * prerenal factors (poor oral intake) * infection/sepsis (bacteremia + UTI) * diuretic use * antibiotics (vancomycin toxicity?) * other? * evaluation to date noted: * normal renal ultrasound * urine electrolytes pre-renal * urine eosinophils negative * moderate proteinuria (~ 700mg) * CPK low * off IVFs due to concern of volume overload * significant acidosis noted as well (but refusing to take sodium bicarbonate tabs) * follow repeat labs and UOP (2) Stage 3 chronic kidney disease: Code(s): N18.30 - Chronic kidney disease, stage 3 unspecified Status: Chronic Assessment and Plan: * baseline creatinine runs ~ 1.0 - 1.5mg/dl * presumably due to hypertension, SIMEON, obesity, and age-related change (3) Altered mental status: Qualifiers: Altered mental status type: delirium Qualified Code(s): R41.0 - Disorientation, unspecified Code(s): R41.82 - Altered mental status, unspecified Status: Acute Assessment and Plan: * etiology not clear * possible issues include: * infection (bacteremia + fungal UTI) * previous hypoxia * previous SDH * electrolyte imbalance (low K+ but corrected) * psychiatric (known bipolar disorder) * CT of head without any acute findings * holding sedating medications * ongoing PT/OT/ST * follow trend of mentation (4) Sepsis: Code(s): A41.9 - Sepsis, unspecified organism Status: Acute Assessment and Plan: * due to several issues: * blood culture (1 set out of 2) with MRSA from 02/07 * possible pneumonia imaging (completed course of antibiotics) * fungal UTI [UA with budding yeast; urine culture with Val dubliniensis -- (fluconazole added 02/19 but patient refusing/not taking consistently] * repeat blood cultures (02/09 + 02/14) with no growth * respiratory pathogen panel positive for parainfluenza 3 * however worsening leukocytosis noted on 02/20 * CT C/A/P (on 02/20): showing airspace consolidation ground glass opacity throughout both lungs (correlate for interval element of pulmonary edema versus bilateral pneumonia); increasing small bilateral pleural effusions with bibasilar atelectatic change; new inflammatory change and/or fluid in the upper abdomen, suggestive of acute pancreatitis. * repeat blood cultures (02/20) with now growth to date * repeat urine culture (02/20) with no growth * meropenem added 02/20 * remains on vancomycin for MRSA bacteremia * continue supportive therapy (5) MRSA bacteremia: Code(s): R78.81 - Bacteremia; B95.62 - Methicillin resistant Staphylococcus aureus infection as the cause of diseases classified elsewhere Status: Acute Assessment and Plan: * as noted by culture data: * 1 out of 2 sets noted on 02/07 * repeat cultures to date negative * on vancomycin (6) UTI (urinary tract infection): Qualifiers: Urinary tract infection type: acute cystitis Hematuria presence: w ithout hematuria Qualified Code(s): N30.00 - Acute cystitis without hematuria Code(s): N39.0 - Urinary tract infection, site not specified Status: Acute Assessment and Plan: * admission UA (on 02/18) with 51-100 WB, 2+ LE and negative nitrates (but drawn from a [facility]) * urine culture with Val * on fluconazole (but refusing to take) (7) Pancreatitis: Code(s): K85.90 - Acute pancreatitis without necrosis or infection, unspecified Status: Acute Assessment and Plan: * incidental finding of 02/20 CT imaging: * new inflammatory change and/or fluid in the upper abdomen, suggestive of acute pancreatitis * lipase was 5561 with slow improvement * RUQ US showing no acute findings -- she is s/p cholecystectomy * benign exam and not complaining of abdominal pain * follow trend of lipase (8) DVT (deep venous thrombosis): Code(s): I82.409 - Acute embolism and thrombosis of unspecified deep veins of unspecified lower extremity Status: Acute Assessment and Plan: * dopplers of upper extremities and lower extremeties (on 02/20) noted: * negative for UEs * LEs with showing bilateral DVTs within the bilateral posterior tibial and peroneal veins. * on heparin gtt * switch to oral medication when patient taking oral medications reliably/consistently (9) Acute hypoxemic respiratory failure: Code(s): J96.01 - Acute respiratory failure with hypoxia Status: Acute Assessment and Plan: * resolved * thought to be secondary to acute CHF, pneumonia, and possibly refusal to wear CPAP * s/p diuresis with clinical improvement * weaned to room air * follow respiratory status closely given #1 (10) HTN (hypertension): Qualifiers: Hypertension type: essential hypertension Qualified Code(s): I10 - Essential (primary) hypertension Code(s): I10 - Essential (primary) hypertension Status: Chronic Assessment and Plan: * reasonable control * follow trend of hemodyamics (11) Diastolic dysfunction: Code(s): I51.89 - Other ill-defined heart diseases Status: Acute Assessment and Plan: * evidence of exacerbation earlier in hospital course * Cardiology recommendations noted * however, off lasix at this time due to #1 * follow volume status closely (12) Bipolar disorder: Qualifiers: Active/Remission status: currently active Code(s): F31.9 - Bipolar disorder, unspecified Status: Acute Assessment and Plan: * on Lamictal and sertraline * however, not taking regularly due to refusal at times * suspect may be playing a role with #3 * further intervention(?) Continue ongoing discussions with and family regarding level of care/goals of therapy given no significant improvement in clinical status despite aggressive medical care to date. Will continue to follow. L Subjective Date/time seen: 02/23/25 11:31 Interval history: Follow-up for acute kidney injury/acute renal failure on chronic kidney disease. Renal function continues to deteriorate in association with declining urine output; per nursing, she was up all night rambling to herself which is what she was doing at the time of my visit; does not answer questions when asked and continues to speak to herself; reportedly she is taking some oral medications but not consistently. Exam 2 Narrative: General: somewhat ill-appearing female in NAD Heart: normal S1 and S2; no rub Lungs: coarse breath sounds Abdomen: soft, nontender, nondistended, positive bowel sounds Extremities: no cyanosis or clubbing; 1+ edema Skin: no nodules Objective Data Vital Signs Vital Signs: Vital Signs Temp Pulse Resp BP Pulse Ox O2 Del Method FiO2 02/23/25 08:28 92 Room Air 02/23/25 08:00 101 H 02/23/25 08:00 94 Room Air 02/23/25 06:00 97.8 F 98 16 138/42 L 94 02/23/25 04:00 101 H 02/23/25 02:00 94 20 02/23/25 01:54 93 97 02/23/25 01:51 93 20 02/23/25 00:00 94 02/22/25 22:02 74 97 02/22/25 22:00 98.6 F 98 18 136/89 98 02/22/25 20:00 101 H 02/22/25 20:00 Room Air 02/22/25 19:42 102 H 20 94 Room Air 21 02/22/25 19:40 102 H 20 Intake/Output Intake/Output: Intake & Output 02/20/25 02/21/25 02/22/25 02/23/25 23:59 23:59 23:59 23:59 Intake Total 775.0 1202.2 524.7 215.5 Output Total 850 250 100 100 Balance -75.0 952.2 424.7 115.5 Meds/Results Medications: Active Medications Generic Name Dose Route Start Last Admin Trade Name Freq PRN Reason Stop Dose Admin Acetaminophen 650 mg 02/23/25 15:26 Acetaminophen 325 Mg Tablet FEED TUBE Q4H PRN Mild Pain (1-3) or Fever Artificial Tears 1 drop 02/08/25 09:32 Artificial Tears Ophth Soln 15 Ml Bottle EACH EYE 03/10/25 09:31 PRN PRN dry eye(s) Carvedilol 18.75 mg 02/23/25 21:00 Carvedilol 6.25 Mg Tablet FEED TUBE Q12HR CARLIN Famotidine 20 mg 02/23/25 10:35 02/23/25 10:57 Famotidine 20 Mg/2 Ml Vial IV PUSH 20 mg Q12HR CARLIN Administration Meropenem 500 mg in 100 mls @ 200 mls/hr 02/20/25 10:30 02/23/25 09:20 IVPB 02/26/25 21:29 200 mls/hr Q12HR CARLIN Administration Fluconazole/Dextrose 100 mg in 50 mls @ 50 mls/hr 02/23/25 10:30 02/23/25 11:01 Diflucan 100 Mg/Nacl 50 Ml IVPB 03/08/25 09:59 50 mls/hr DAILY CARLIN Administration Protamine Sulfate 20 mg/ 52 mls @ 156 mls/hr 02/23/25 18:00 Sodium Chloride IVPB 02/23/25 18:19 ONCE ONE Lamotrigine 200 mg 02/23/25 21:00 Lamotrigine 100 Mg Tablet FEED TUBE Q12HR CARLIN Levalbuterol HCl 1.25 mg 02/23/25 07:38 Levalbuterol Neb 1.25 Mg/3 Ml INHALATION Q6HRT PRN Shortness Of Breath Or Wheezing Lorazepam 1 mg 02/09/25 15:15 02/15/25 10:49 Lorazepam (*Crx) 1 Mg Tablet PO 1 mg Q8H PRN Administration Anxiety Ondansetron HCl 4 mg 02/07/25 15:41 02/16/25 12:09 Ondansetron Inj 4 Mg/2 Ml Vial IV PUSH 4 mg Q4H PRN Administration Nausea Sodium Bicarbonate 1,300 mg 02/23/25 17:00 Sodium Bicarbonate Tab 650 Mg Tablet FEED TUBE BID [facility] Radiology Results: ITS Impressions Modified Barium Swallow 02/14/25 11:22 IMPRESSION: Mild pharyngeal dysphagia with laryngeal penetration without aspiration. Please correlate with speech pathologist findings and specific feeding recommendations. Renal Ultrasound 02/19/25 15:09 IMPRESSION: 1. Normal kidneys without hydronephrosis. Chest/Abdomen/Pelvis CT 02/20/25 15:06 Impression: Airspace consolidation groundglass opacity throughout both lungs. Correlate for interval element of pulmonary edema versus bilateral pneumonia. Increasing small bilateral pleural effusions with bibasilar atelectatic change. New inflammatory change and/or fluid in the upper abdomen, suggestive of acute pancreatitis. Correlate clinically. Chest X-Ray 02/21/25 06:02 Impression: Probable patchy mild pulmonary edema pattern versus patchy bilateral pneumonia. Correlate clinically. Small right pleural effusion. Venous Doppler Study 02/21/25 07:40 IMPRESSION: Deep venous thrombosis within the bilateral posterior tibial and peroneal veins, as detailed above. Remainder of the examination is unremarkable. Upper Quadrant Ultrasound 02/21/25 12:03 IMPRESSION: Unremarkable limited ultrasound examination of the right upper quadrant, as detailed above. Labs Labs: Laboratory Tests 02/23/25 10:44 02/23/25 06:47 WBC 29.7 H Hgb 8.8 L Hct 27.3 L Plt Count 371 Calcium 8.4 Phosphorus 5.2 H Magnesium 2.3 Total Bilirubin 0.5 AST 36 ALT 17 Alkaline Phosphatase 161 H Total Protein 5.5 L Albumin 2.4 L Lipase 334 H
--- NOTE | 2025-02-23 14:07 | PM.IMPN ---
Progress Note: A&P Assessment and Plan (1) Altered mental status: Qualifiers: Altered mental status type: delirium Qualified Code(s): R41.0 - Disorientation, unspecified Code(s): R41.82 - Altered mental status, unspecified Status: Acute Assessment and Plan: Infection verses stroke versus electrolyte imbalance versus other (psych) CT head 02/07 showing no acute findings (CT head 01/11/25 showing small SDH and was sent to [facility] sedating medications until more alert Psych evaluation performed and appreciate their input. Haldol recommended to control mood disorder PT/OT/ST Stop Heparin gtt and repeat CT brain. (2) SDH (subdural hematoma): Code(s): S06.5XAA - Traumatic subdural hemorrhage with loss of consciousness status unknown, initial encounter Status: Acute Assessment and Plan: Patient presented to the ED 01/[address] injury and [address] head showing very small SDH along the left side of the anterior falx cerebri. She was sent to [facility] but she was monitored without intervention. CT brain 02/07 showing no acute findings. (3) Sepsis: Code(s): A41.9 - Sepsis, unspecified organism Status: Acute Assessment and Plan: Possible pneumonia vs UTI CXR concerning for PNA vs edema. BCx 02/07 positive for MRSA. TTE neg for endocarditis. per cardiology if repeat B/C neg no need for QI BCx 02/09 and 02/14 negative Pulmonary team was on board Respiratory pathogen panel positive for parainfluenza 3 IV antibiotics: -- Rocephin 02/07-, vancomycin started 02/09, Flagyl 02/11- -- Cefepime started 02/13 and completed a course on 02/19 WBC elevated but stable 16-20K range until 02/20 with WBC to 29K CT chest/Abd/Pelvis 02/20 showing airspace consolidation groundglass opacity throughout both lungs. Correlate for interval element of pulmonary edema versus bilateral pneumonia. Increasing small bilateral pleural effusions with bibasilar atelectatic change. New inflammatory change and/or fluid in the upper abdomen, suggestive of acute pancreatitis. UA with budding yeast with UCx 02/18 growing 10-49K Val dubliniensis. Fluconazole added 02/19 but patient refusing BCx 02/20 NGTD UCx 02/20 Negative Meropenem added 02/20 Vancomycin for MRSA bacteremia Day 15 Consider pancreatitis as reason for elevated WBC. No diarrhea or evidence of colitis to suggest CDIff. Covering MRSA, pseudomonas and ESBL. Doubt viral or fungal. No fevers. Continue meropenem for 7 days. Stop vancomycin. Change diflucan to IV. (4) MRSA bacteremia: Code(s): R78.81 - Bacteremia; B95.62 - Methicillin resistant Staphylococcus aureus infection as the cause of diseases classified elsewhere Status: Acute Assessment and Plan: As above (5) Anemia: Code(s): D64.9 - Anemia, unspecified Status: Acute Assessment and Plan: Normal baseline Hgb. Hgb 12 on admission here Hgb drifted down to 10-11 and stable until dropped to 8.8 today. Repeat stable. RN noted ?blood around her oral cavity. Stool guaiac ordered. Serial HH. Stop Heparin. Add pepcid IV (allergic to PPIs) (6) Pancreatitis: Code(s): K85.90 - Acute pancreatitis without necrosis or infection, unspecified Status: Acute Assessment and Plan: Patient with incidental finding of CT Abd/Pelvis showing new inflammatory change and/or fluid in the upper abdomen, suggestive of acute pancreatitis. Lipase was 5561. Repeat level close to normal now RUQ US showing no acute findings. She is s/p cholecystectomy. TG level normal. Exam relatively benign. Pancreatitis related to meds? Not eating so will place NGT and place patient is soft restraints. agreeable (7) JERRY (acute kidney injury): Code(s): N17.9 - Acute kidney failure, unspecified Status: Acute Assessment and Plan: Cr mostly 1.2-1.5 range through December 2024. Cr 3.6 on admission and did improve to 1.3 a few days after admission but has since been climbing. IV fluids and lasix on hold I/O: +11L. Concerning for fluid overload on exam and by imaging. BNP 27K (BNP 3K in October) Renal US unremarkable Prot/Cr 0.7gm. [place] 18. FENa 0.2% Vanc troughs elevated and likely indicated vanc toxicity? No contrast given since admission. Nephrology following and discussed; appreciate their input. She is not eating Creatinine up to 4 with severe metabolic acidosis (AG 8). Potassium okay Na Bicarb added but she is not taking meds (will change to NG route) Continue to monitor UOP, renal function and electrolytes. (8) DVT (deep venous thrombosis): Code(s): I82.409 - Acute embolism and thrombosis of unspecified deep veins of unspecified lower extremity Status: Acute Assessment and Plan: Doppler of the LUE negative for DVT Doppler of the bilateral LE showing bilateral DVT within the bilateral posterior tibial and peroneal veins. She is high risk for propagation to above the knee Heparin gtt started but will stop now since hx of recent SDH and now dropping HH Monitor. Will need IVC filter if family decides to continue care plan (9) UTI (urinary tract infection): Qualifiers: Hematuria presence: without hematuria Urinary tract infection type: acute cystitis Qualified Code(s): N30.00 - Acute cystitis without hematuria Code(s): N39.0 - Urinary tract infection, site not specified Status: Acute Assessment and Plan: UA 02/18 showing 51-100 WB, 2+ LE and negative nitrates but drawn from a Castro Could be causing altered mental status but felt more psych related now UCx 02/18 growing Val and fluconazole added (but patient refusing) Currently on meropenem and vanco. No evidence of fungemia. Vanco stopped 02/23. Diflucan changed to IV. UCx 02/20 negative. (10) Bipolar disorder: Qualifiers: Active/Remission status: currently active Code(s): F31.9 - Bipolar disorder, unspecified Status: Acute Assessment and Plan: Patient on Lamictal, duloxatine and sertraline but not taking regularly Duloxatine and sertraline stopped since not taking lamictal. Patient taking lamictal intermittently. Change to NG route Psych consulted and appreciate their input (11) HTN (hypertension): Qualifiers: Hypertension type: essential hypertension Qualified Code(s): I10 - Essential (primary) hypertension Code(s): I10 - Essential (primary) hypertension Status: Chronic Assessment and Plan: Patient's blood pressure was reviewed on 02/23 Blood pressure remains well controlled. Will continue to monitor (12) Diastolic dysfunction: Code(s): I51.89 - Other ill-defined heart diseases Status: Acute Assessment and Plan: Acute on chronic HFpEF dc 'd lasix due to JERRY cardiology team on board (13) Obstructive sleep apnea on CPAP: Code(s): G47.33 - Obstructive sleep apnea (adult) (pediatric); Z99.89 - Dependence on other enabling machines and devices Status: Acute Assessment and Plan: Does not appear to be on home CPAP (14) NSTEMI (non-ST elevated myocardial infarction): Code(s): I21.4 - Non-ST elevation (NSTEMI) myocardial infarction Status: Acute Assessment and Plan: Troponin: 0.287-0.364 Likely demand ischemia monitor for now Cardiology team on board (15) Acute hypoxemic respiratory failure: Code(s): J96.01 - Acute respiratory failure with hypoxia Status: Acute Assessment and Plan: Patieint with SOB and hypoxia 02/12 up to 4L. [place] related to CHF with her weight gain, imaging findings and BNP 28K. Patient received Lasix 40mg on 02/12 in the evening. There is no evidence of hypercarbic respiratory failure with ABG on 4 L 7.45/. Weaned to room air. Follow (16) Diarrhea: Code(s): R19.7 - Diarrhea, unspecified Status: Acute Assessment and Plan: Likely cause of acute dehydration and hypokalemia Negative for C diff Imodium once on 02/12. Resolved (17) Acute hypokalemia: Code(s): E87.6 - Hypokalemia Status: Acute Assessment and Plan: Potassium was replaced. Levels normalized Continue monitoring Plan DVT prophylaxis - off heaprin due to hx of SDH and anemia. Will need IVC filter if family decides to continue full care. Code status - full Subjective Date/time seen: 02/23/25 14:07 Interval history: 69yo female history of bipolar 1, hypertension, brain tumor, iron deficiency anemia, CKD and SIMEON presents to the hospital with altered mental status from a care home. Able to take some meds now. UOP dropped overnight. Patient up all night with rambling speech. RN noted rust colored mat'l on the patients lips but not able to do oral exam. later in the day, discussed with at bedside about hospital course and care plan. We discussed that she is nearing dialysis and that she has been refusing to eat and refusing her medications. We spoke about other options including comfort measures. He is open to the idea of comfort but will first speak with other family members. He mentions patient has a hx of SDH in December. Review of Systems Review of Systems: ROS unobtainable: Yes unobtainable due to mental status Exam Narrative: AF 97.8 138/42 103 16 92% ra Gen - NARD HEENT - Resists eye and oral exam. Chest - lungs clear anteriorly CV - RRR S1/S2; tele showing no significant dysrhythmias Abd - Soft, upper abd tenderness with some guarding - Castro secured draining clear yellow urine with small volume noted in bag Ext - 1-2+ pitting UE>>LE edema Neuro - does not respond to questions or follow commands. eyes remain closed. jabbering with speech mostly clear. Psych - manic Skin - Warm and dry Objective Data Vital Signs Vital Signs: Vital Signs - 24 hr 02/22/25 14:22 02/22/25 14:29 02/22/25 16:00 Temperature Pulse Rate 78 81 99 Respiratory Rate 20 20 Blood Pressure Pulse Oximetry Oxygen Delivery Fraction of Inspired Oxygen 02/22/25 19:40 02/22/25 19:42 02/22/25 20:00 Temperature Pulse Rate 102 H 102 H Respiratory Rate 20 20 Blood Pressure Pulse Oximetry 94 Oxygen Delivery Room Air Room Air Fraction of Inspired Oxygen 21 02/22/25 20:00 02/22/25 22:00 02/22/25 22:02 Temperature 98.6 F Pulse Rate 101 H 98 74 Respiratory Rate 18 Blood Pressure 136/89 Pulse Oximetry 98 97 Oxygen Delivery Fraction of Inspired Oxygen 02/23/25 00:00 02/23/25 01:51 02/23/25 01:54 Temperature Pulse Rate 94 93 93 Respiratory Rate 20 Blood Pressure Pulse Oximetry 97 Oxygen Delivery Fraction of Inspired Oxygen 02/23/25 02:00 02/23/25 04:00 02/23/25 06:00 Temperature 97.8 F Pulse Rate 94 101 H 98 Respiratory Rate 20 16 Blood Pressure 138/42 L Pulse Oximetry 94 Oxygen Delivery Fraction of Inspired Oxygen 02/23/25 08:00 02/23/25 08:00 02/23/25 08:28 Temperature Pulse Rate 101 H Respiratory Rate Blood Pressure Pulse Oximetry 94 92 Oxygen Delivery Room Air Room Air Fraction of Inspired Oxygen 02/23/25 12:00 Temperature Pulse Rate 103 H Respiratory Rate Blood Pressure Pulse Oximetry Oxygen Delivery Fraction of Inspired Oxygen Intake/Output Intake/Output: Intake & Output 02/20/25 02/21/25 02/22/25 02/23/25 23:59 23:59 23:59 23:59 Intake Total 775.0 1202.2 524.7 159.0 Output Total 850 250 100 100 Balance -75.0 952.2 424.7 59.0 Meds/Results Medications: Active Medications Generic Name Dose Route Start Last Admin Trade Name Freq PRN Reason Stop Dose Admin Acetaminophen 650 mg 02/07/25 15:41 02/07/25 20:34 Acetaminophen 325 Mg Tablet PO 650 mg Q4H PRN Administration Mild Pain (1-3) or Fever Artificial Tears 1 drop 02/08/25 09:32 Artificial Tears Ophth Soln 15 Ml Bottle EACH EYE 03/10/25 09:31 PRN PRN dry eye(s) Carvedilol 18.75 mg 02/08/25 09:00 02/23/25 12:37 Carvedilol 6.25 Mg Tablet PO Not Given Q12HR CARLIN Famotidine 20 mg 02/23/25 10:35 02/23/25 10:57 Famotidine 20 Mg/2 Ml Vial IV PUSH 20 mg Q12HR CARLIN Administration Heparin Sodium (Porcine) 6,000 units 02/21/25 08:32 02/22/25 01:13 Heparin Sodium 5,000 Units/Ml Vial IV PUSH 6,000 units PRN PRN Administration aPTT less than 55 seconds Heparin Sodium (Porcine) 3,000 units 02/21/25 08:32 Heparin Sodium 5,000 Units/Ml Vial IV PUSH PRN PRN aPTT 55 - 70 seconds Meropenem 500 mg in 100 mls @ 200 mls/hr 02/20/25 10:30 02/23/25 09:20 IVPB 02/26/25 21:29 200 mls/hr Q12HR CARLIN Administration Heparin Sodium/Dextrose 25,000 units in 250 mls @ 9 mls/hr 02/21/25 08:35 02/23/25 08:43 Heparin Sodium/D5w 100 Units/Ml IV CONT 900 units/hr .Q24H CARLIN 9 mls/hr Titration Protocol 900 UNITS/HR Fluconazole/Dextrose 100 mg in 50 mls @ 50 mls/hr 02/23/25 10:30 02/23/25 11:01 Diflucan 100 Mg/Nacl 50 Ml IVPB 03/08/25 09:59 50 mls/hr DAILY CARLIN Administration Lamotrigine 200 mg 02/08/25 09:00 02/23/25 09:11 Lamotrigine 100 Mg Tablet PO 200 mg Q12HR CARLIN Administration Levalbuterol HCl 1.25 mg 02/23/25 07:38 Levalbuterol Neb 1.25 Mg/3 Ml INHALATION Q6HRT PRN Shortness Of Breath Or Wheezing Lorazepam 1 mg 02/09/25 15:15 02/15/25 10:49 Lorazepam (*Crx) 1 Mg Tablet PO 1 mg Q8H PRN Administration Anxiety Ondansetron HCl 4 mg 02/07/25 15:41 02/16/25 12:09 Ondansetron Inj 4 Mg/2 Ml Vial IV PUSH 4 mg Q4H PRN Administration Nausea Sodium Bicarbonate 1,300 mg 02/21/25 17:00 02/23/25 10:35 Sodium Bicarbonate Tab 650 Mg Tablet PO Not Given BID [facility] Radiology Results: ITS Impressions Head CT 02/07/25 18:39 Impression: No acute intracranial hemorrhage or suspicious mass effect. Modified Barium Swallow 02/14/25 11:22 IMPRESSION: Mild pharyngeal dysphagia with laryngeal penetration without aspiration. Please correlate with speech pathologist findings and specific feeding recommendations. Renal Ultrasound 02/19/25 15:09 IMPRESSION: 1. Normal kidneys without hydronephrosis. Chest/Abdomen/Pelvis CT 02/20/25 15:06 Impression: Airspace consolidation groundglass opacity throughout both lungs. Correlate for interval element of pulmonary edema versus bilateral pneumonia. Increasing small bilateral pleural effusions with bibasilar atelectatic change. New inflammatory change and/or fluid in the upper abdomen, suggestive of acute pancreatitis. Correlate clinically. Chest X-Ray 02/21/25 06:02 Impression: Probable patchy mild pulmonary edema pattern versus patchy bilateral pneumonia. Correlate clinically. Small right pleural effusion. Venous Doppler Study 02/21/25 07:40 IMPRESSION: Deep venous thrombosis within the bilateral posterior tibial and peroneal veins, as detailed above. Remainder of the examination is unremarkable. Upper Quadrant Ultrasound 02/21/25 12:03 IMPRESSION: Unremarkable limited ultrasound examination of the right upper quadrant, as detailed above. Labs Labs: Laboratory Results - last 24 hr 02/22/25 02/22/25 02/22/25 15:35 22:51 23:15 WBC RBC Hgb Hct MCV MCH MCHC RDW Plt Count MPV Immature Gran % (Auto) Neut % (Auto) Lymph % (Auto) [place] % (Auto) Eos % (Auto) Baso % (Auto) Lymph # (Auto) [place] # (Auto) Eos # (Auto) Baso # (Auto) Abs Immat Gran (auto) Absolute Neuts (auto) Absolute Nucleated RBC Nucleated RBC % APTT > 200.0 H* > 200.0 H* Sodium Potassium Chloride Carbon Dioxide Anion Gap BUN Creatinine Estim Creat Clear Calc Estimated GFR Glucose POC Capillary Glucose 107 H Calcium Phosphorus Magnesium Total Bilirubin AST ALT Alkaline Phosphatase Ammonia < 9 L Total Protein Albumin Lipase 300 02/23/25 02/23/25 06:47 10:44 WBC 29.7 H RBC 2.80 L Hgb 8.8 L 8.9 L Hct 27.3 L 27.9 L MCV 97.5 D MCH 31.4 MCHC 32.2 RDW 20.8 H Plt Count 371 MPV 8.9 Immature Gran % (Auto) 5.5 H Neut % (Auto) 84.6 H Lymph % (Auto) 3.3 L [place] % (Auto) 6.1 Eos % (Auto) 0.1 Baso % (Auto) 0.4 Lymph # (Auto) 0.99 [place] # (Auto) 1.8 H Eos # (Auto) 0.0 Baso # (Auto) 0.1 Abs Immat Gran (auto) 1.63 H Absolute Neuts (auto) 25.1 H Absolute Nucleated RBC 0.040 H Nucleated RBC % 0.1 APTT > 200.0 H* Sodium 139 Potassium 3.7 Chloride 113 H Carbon Dioxide 13 L Anion Gap 13 H BUN 59 H Creatinine 3.50 H Estim Creat Clear Calc 17 Estimated GFR 13 L Glucose 95 POC Capillary Glucose Calcium 8.4 Phosphorus 5.2 H Magnesium 2.3 Total Bilirubin 0.5 AST 36 ALT 17 Alkaline Phosphatase 161 H Ammonia Total Protein 5.5 L Albumin 2.4 L Lipase 334 H
[2025-02-23 14:47] LABS: Partial Thromboplastin Time 75.3 Seconds (22.3-36.8)
--- NOTE | 2025-02-23 15:48 | PCNFU ---
Nutrition Follow-Up Complete: Inadequate oral intake related to loss of appetite, mouth sores as evidenced by weight loss 21%/5 months Goal:PO intakes at least 50% meals and supplements Pt not meeting goal. Orders for tube feeding Pt current nutrition is Heart healthy diet, minced and moist level 5, mildly thick liquids. New orders to initate tube feeding for nutrition support. Nutrition recommendation: Nepro tube feeding - initiate at 20ml/hr, advance by 10ml/hr q 4 hrs to a GOAL rate of 45ml/hr over 22hrs. Recommend a 175ml flush q 4 hrs. This totals: 1782kcals, 80g protein, 1769ml free water Last recorded weight is 107.4 kg. Bowel Motility: +BM / Labs Reviewed: Hgb:8.9, HCT:27.9, Alb:2.4, GFR:13, BUN:59, Cr:3.5 Meds Noted: zofran Skin: WNL Additional Notes: Pt continues to refuse meals. Orders for tube feeding for nutrition support. Recommend Nepro at a goal rate of 45ml/hr to provide 1782kcals, 80g protein, 719ml free water. Recommend a 175ml water flush q 4 hrs for a total of 1769ml free water in 24hrs. Monitoring intakes, weights, labs, supplement tolerance, plan of care Follow up in 3 days
--- NOTE | 2025-02-23 15:57 | PCDIET ---
Nutrition tube feeding recommendation: Nepro tube feeding - initiate at 20ml/hr, advance by 10ml/hr q 4 hrs to a GOAL rate of 45ml/hr over 22hrs. Recommend a 175ml flush q 4 hrs. This totals: 1782kcals, 80g protein, 1769ml free water
[2025-02-23 17:44] LABS: Hematocrit 30.4 % (37.0-47.0); Hemoglobin 9.1 g/dL (12.0-15.0)
[2025-02-23] MEDS: PROTAMINE SULFATE IVPB (17:49)
[2025-02-23] MEDS: SODIUM CHLORIDE 0.9% IVPB (17:49)
[2025-02-23 23:56] LABS: Hematocrit 25.7 % (37.0-47.0); Hemoglobin 8.3 g/dL (12.0-15.0)
[2025-02-24] VITALS (12 sets, daily range): BP systolic 119–144; BP diastolic 52–79; PULSE 77–101; RESP 18; TEMP 36.6–36.9; O2SAT 93–97
--- NOTE | 2025-02-24 05:18 | PC.NURSE ---
Anya Mcdonough with [facility] transfer center called at [phone] for any overnight updates on patient.
[2025-02-24 05:47] LABS: Hematocrit 26.7 % (37.0-47.0); Hemoglobin 8.4 g/dL (12.0-15.0); Immature Granulocyte Percent A 5.8 % (0-0.5); Lymphocytes Absolute Auto 1.32 K/mm3 (0.9-3.2); Mean Corpuscular HGB Conc 31.5 g/dl (32-36); Mean Corpuscular Hemoglobin 31.1 pg (26-34); Mean Corpuscular Volume 98.9 fl (80-100); Nucleated Red Blood Cells Absolute Auto 0.060 K/mm3 (0.0-0.012); Nucleated Red Blood Cells Perc 0.2 % (0.0-0.2); Platelet Count Result 388 k/mm3 (150-375); Red Blood Count 2.70 M/mm3 (4.2-5.4); White Blood Count 24.2 K/mm3 (4.5-10.0)
[2025-02-24 06:01] LABS: Alanine Aminotransferase 20 U/L (6-35); Albumin Level 2.4 g/dL (3.5-5.1); Alkaline Phosphatase 191 U/L (38-126); Anion Gap 18 mmol/L (4-12); Aspartate Amino Transferase 61 U/L (14-36); Bilirubin,Total 0.5 mg/dL (0.2-1.3); Blood Urea Nitrogen 65 mg/dL (7-17); Calcium 8.6 mg/dL (8.4-10.2); Carbon Dioxide 11 mmol/L (22-30); Chloride 113 mmol/L (98-107); Estimated CRCL calculation 15 ml/min; Estimated Glomerular Filt Rate 11; Glucose 77 mg/dL (65-110); Magnesium 2.5 mg/dL (1.6-2.3); Potassium 3.5 mmol/L (3.4-5.0); Sodium 142 mmol/L (137-145); Total Protein 5.5 g/dL (6.3-8.2)
[2025-02-24 06:12] LABS: INR 1.2; Prothrombin Time 15.5 Seconds (11.1-14.7)
[2025-02-24 06:13] LABS: Partial Thromboplastin Time 44.3 Seconds (22.3-36.8)
[2025-02-24] MEDS: FAMOTIDINE 20 MG/2 ML VIAL IV PUSH ×2 (08:39→20:41)
[2025-02-24] MEDS: FLUCONAZOLE 100 MG/NACL 50 ML 100 MG/50 ML BTL 50 MG IVPB (08:39)
--- NOTE | 2025-02-24 11:07 | P.PNNP_ITS ---
Progress Note: A&P Assessment and Plan (1) Acute kidney injury: Code(s): N17.9 - Acute kidney failure, unspecified Status: Acute Assessment and Plan: * as noted on admission (creatinine 3.63mg/dl) * interestingly, associated with significant hypokalemia * transiently improved to 1.27mg/dl (on 02/12) * then started to progressively deteriorate again on 02/13 * suspect multifactorial etiology: * prerenal factors (poor oral intake) * infection/sepsis (bacteremia + UTI) * diuretic use * antibiotics (vancomycin toxicity?) * other? * evaluation to date noted: * normal renal ultrasound * urine electrolytes pre-renal * urine eosinophils negative * moderate proteinuria (~ 700mg) * CPK low * off IVFs due to concern of volume overload * significant acidosis noted as well (but refusing to take sodium bicarbonate tabs) * follow repeat labs and UOP (2) Stage 3 chronic kidney disease: Code(s): N18.30 - Chronic kidney disease, stage 3 unspecified Status: Chronic Assessment and Plan: * baseline creatinine runs ~ 1.0 - 1.5mg/dl * presumably due to hypertension, SIMEON, obesity, and age-related change (3) Altered mental status: Qualifiers: Altered mental status type: delirium Qualified Code(s): R41.0 - Disorientation, unspecified Code(s): R41.82 - Altered mental status, unspecified Status: Acute Assessment and Plan: * etiology not clear * possible issues include: * infection (bacteremia + fungal UTI) * previous hypoxia * previous SDH * electrolyte imbalance (low K+ but corrected) * psychiatric (known bipolar disorder) * CT of head without any acute findings * holding sedating medications * ongoing PT/OT/ST * follow trend of mentation (4) Sepsis: Code(s): A41.9 - Sepsis, unspecified organism Status: Acute Assessment and Plan: * due to several issues: * blood culture (1 set out of 2) with MRSA from 02/07 * possible pneumonia imaging (completed course of antibiotics) * fungal UTI [UA with budding yeast; urine culture with Val dubliniensis -- (fluconazole added 02/19 but patient refusing/not taking consistently] * repeat blood cultures (02/09 + 02/14) with no growth * respiratory pathogen panel positive for parainfluenza 3 * however worsening leukocytosis noted on 02/20 * CT C/A/P (on 02/20): showing airspace consolidation ground glass opacity throughout both lungs (correlate for interval element of pulmonary edema versus bilateral pneumonia); increasing small bilateral pleural effusions with bibasilar atelectatic change; new inflammatory change and/or fluid in the upper abdomen, suggestive of acute pancreatitis. * repeat blood cultures (02/20) with now growth to date * repeat urine culture (02/20) with no growth * meropenem added 02/20 * remains on vancomycin for MRSA bacteremia * continue supportive therapy (5) MRSA bacteremia: Code(s): R78.81 - Bacteremia; B95.62 - Methicillin resistant Staphylococcus aureus infection as the cause of diseases classified elsewhere Status: Acute Assessment and Plan: * as noted by culture data: * 1 out of 2 sets noted on 02/07 * repeat cultures to date negative * on vancomycin (6) UTI (urinary tract infection): Qualifiers: Urinary tract infection type: acute cystitis Hematuria presence: w ithout hematuria Qualified Code(s): N30.00 - Acute cystitis without hematuria Code(s): N39.0 - Urinary tract infection, site not specified Status: Acute Assessment and Plan: * admission UA (on 02/18) with 51-100 WB, 2+ LE and negative nitrates (but drawn from a [facility]) * urine culture with Val * on fluconazole (but refusing to take) (7) Pancreatitis: Code(s): K85.90 - Acute pancreatitis without necrosis or infection, unspecified Status: Acute Assessment and Plan: * incidental finding of 02/20 CT imaging: * new inflammatory change and/or fluid in the upper abdomen, suggestive of acute pancreatitis * lipase was 5561 with slow improvement * RUQ US showing no acute findings -- she is s/p cholecystectomy * benign exam and not complaining of abdominal pain * follow trend of lipase (8) DVT (deep venous thrombosis): Code(s): I82.409 - Acute embolism and thrombosis of unspecified deep veins of unspecified lower extremity Status: Acute Assessment and Plan: * dopplers of upper extremities and lower extremeties (on 02/20) noted: * negative for UEs * LEs with showing bilateral DVTs within the bilateral posterior tibial and peroneal veins. * on heparin gtt * switch to oral medication when patient taking oral medications reliably/consistently (9) Acute hypoxemic respiratory failure: Code(s): J96.01 - Acute respiratory failure with hypoxia Status: Acute Assessment and Plan: * resolved * thought to be secondary to acute CHF, pneumonia, and possibly refusal to wear CPAP * s/p diuresis with clinical improvement * weaned to room air * follow respiratory status closely given #1 (10) HTN (hypertension): Qualifiers: Hypertension type: essential hypertension Qualified Code(s): I10 - Essential (primary) hypertension Code(s): I10 - Essential (primary) hypertension Status: Chronic Assessment and Plan: * reasonable control * follow trend of hemodyamics (11) Diastolic dysfunction: Code(s): I51.89 - Other ill-defined heart diseases Status: Acute Assessment and Plan: * evidence of exacerbation earlier in hospital course * Cardiology recommendations noted * however, off lasix at this time due to #1 * follow volume status closely (12) Bipolar disorder: Qualifiers: Active/Remission status: currently active Code(s): F31.9 - Bipolar disorder, unspecified Status: Acute Assessment and Plan: * on Lamictal and sertraline * however, not taking regularly due to refusal at times * suspect may be playing a role with #3 * further intervention(?) Continue ongoing discussions with and family regarding level of care/goals of therapy given no significant improvement in clinical status despite aggressive medical care to date. Will continue to follow. L Subjective Date/time seen: 02/24/25 11:07 Interval history: Follow-up for acute kidney injury/acute renal failure on chronic kidney disease. No significant improvement in mentation -- repeat CT of head without any new findings; not sleeping very well per nursing staff as well; renal function/creatinine continues to worsen despite all interventions/therapy to date. Exam 2 Narrative: General: somewhat ill-appearing female in NAD Heart: normal S1 and S2; no rub Lungs: coarse breath sounds Abdomen: soft, nontender, nondistended, positive bowel sounds Extremities: no cyanosis or clubbing; 1+ edema Skin: warm and dry Objective Data Vital Signs Vital Signs: Vital Signs Temp Pulse Resp BP Pulse Ox O2 Del Method 02/24/25 10:09 94 Room Air 02/24/25 08:00 Room Air 02/24/25 08:00 93 02/24/25 06:00 97.9 F 83 18 144/75 H 97 02/24/25 04:00 88 02/24/25 00:00 88 02/23/25 21:07 98 F 90 18 116/66 95 02/23/25 20:00 90 Intake/Output Intake/Output: Intake & Output 02/21/25 02/22/25 02/23/25 02/24/25 23:59 23:59 23:59 23:59 Intake Total 1202.2 524.7 465.5 50 Output Total 250 100 375 250 Balance 952.2 424.7 90.5 -200 Meds/Results Medications: Active Medications Generic Name Dose Route Start Last Admin Trade Name Freq PRN Reason Stop Dose Admin Acetaminophen 650 mg 02/23/25 15:26 Acetaminophen 325 Mg Tablet FEED TUBE Q4H PRN Mild Pain (1-3) or Fever Artificial Tears 1 drop 02/08/25 09:32 Artificial Tears Ophth Soln 15 Ml Bottle EACH EYE 03/10/25 09:31 PRN PRN dry eye(s) Carvedilol 18.75 mg 02/23/25 21:00 02/24/25 12:16 Carvedilol 6.25 Mg Tablet FEED TUBE 18.75 mg Q12HR CARLIN Administration Famotidine 20 mg 02/23/25 10:35 02/24/25 08:39 Famotidine 20 Mg/2 Ml Vial IV PUSH 20 mg Q12HR CARLIN Administration Meropenem 500 mg in 100 mls @ 200 mls/hr 02/20/25 10:30 02/24/25 12:17 IVPB 02/26/25 21:29 200 mls/hr Q12HR CARLIN Administration Fluconazole/Dextrose 100 mg in 50 mls @ 50 mls/hr 02/23/25 10:30 02/24/25 09:40 Diflucan 100 Mg/Nacl 50 Ml IVPB 03/08/25 09:59 Infused DAILY CARLIN Infusion Sodium Chloride 1,000 mls @ 75 mls/hr 02/24/25 11:55 02/24/25 12:20 Normal Saline Iv IV CONT 02/25/25 01:14 75 mls/hr .[id number] CARLIN Administration Lamotrigine 200 mg 02/23/25 21:00 02/24/25 12:15 Lamotrigine 100 Mg Tablet FEED TUBE 200 mg Q12HR CARLIN Administration Levalbuterol HCl 1.25 mg 02/23/25 07:38 Levalbuterol Neb 1.25 Mg/3 Ml INHALATION Q6HRT PRN Shortness Of Breath Or Wheezing Lorazepam 1 mg 02/09/25 15:15 02/15/25 10:49 Lorazepam (*Crx) 1 Mg Tablet PO 1 mg Q8H PRN Administration Anxiety Ondansetron HCl 4 mg 02/07/25 15:41 02/16/25 12:09 Ondansetron Inj 4 Mg/2 Ml Vial IV PUSH 4 mg Q4H PRN Administration Nausea Sodium Bicarbonate 1,300 mg 02/23/25 17:00 02/24/25 12:15 Sodium Bicarbonate Tab 650 Mg Tablet FEED TUBE 1,300 mg BID CARLIN Administration Radiology Results: ITS Impressions Modified Barium Swallow 02/14/25 11:22 IMPRESSION: Mild pharyngeal dysphagia with laryngeal penetration without aspiration. Please correlate with speech pathologist findings and specific feeding recommendations. Renal Ultrasound 02/19/25 15:09 IMPRESSION: 1. Normal kidneys without hydronephrosis. Chest/Abdomen/Pelvis CT 02/20/25 15:06 Impression: Airspace consolidation groundglass opacity throughout both lungs. Correlate for interval element of pulmonary edema versus bilateral pneumonia. Increasing small bilateral pleural effusions with bibasilar atelectatic change. New inflammatory change and/or fluid in the upper abdomen, suggestive of acute pancreatitis. Correlate clinically. Chest X-Ray 02/21/25 06:02 Impression: Probable patchy mild pulmonary edema pattern versus patchy bilateral pneumonia. Correlate clinically. Small right pleural effusion. Venous Doppler Study 02/21/25 07:40 IMPRESSION: Deep venous thrombosis within the bilateral posterior tibial and peroneal veins, as detailed above. Remainder of the examination is unremarkable. Upper Quadrant Ultrasound 02/21/25 12:03 IMPRESSION: Unremarkable limited ultrasound examination of the right upper quadrant, as detailed above. Head CT 02/23/25 21:46 IMPRESSION: No change from previous examination done on the same day. Abdomen X-Ray 02/24/25 10:02 IMPRESSION: Nasogastric tube in good position and ready for immediate use. Labs Labs: Laboratory Tests 02/24/25 05:16 02/24/25 05:16 PT 15.5 H INR 1.2 APTT 44.3 H Calcium 8.6 Phosphorus 5.4 H Magnesium 2.5 H Total Bilirubin 0.5 AST 61 H ALT 20 Alkaline Phosphatase 191 H Total Protein 5.5 L Albumin 2.4 L
--- NOTE | 2025-02-24 11:46 | PM.IMPN ---
Progress Note: A&P Assessment and Plan (1) Altered mental status: Qualifiers: Altered mental status type: delirium Qualified Code(s): R41.0 - Disorientation, unspecified Code(s): R41.82 - Altered mental status, unspecified Status: Acute Assessment and Plan: Infection verses stroke versus electrolyte imbalance versus other (psych) CT head 02/07 showing no acute findings (CT head 01/11/25 showing small SDH and was sent to [facility] Holding sedating medications until more alert Psych evaluation performed and appreciate their input. Haldol prn recommended to control mood disorder PT/OT/ST Mental status still poor with nonsensical speech. NGT placed with plans to resume Lamictal on regular basis. Continue same dose since she has been taking it intermittently. Monitor for improvement (2) Epidural hematoma: Code(s): S06.4XAA - Epidural hemorrhage with loss of consciousness status unknown, initial encounter Status: Acute Assessment and Plan: CT brain yesterday showing possible right-sided frontal lobe epidural hematoma. Could be artifact but concerning for cerebral hemorrhage given the fact that she was on heparin with supratherapeutic PTT. Spoke with [facility] and spoke with Dr Baeza from neurosurgery. He recommended repeating CT brain in 4-[address] brain showing no change. Repeat CT brain this afternoon (24hrs after 1st scan) to show stability (3) SDH (subdural hematoma): Code(s): S06.5XAA - Traumatic subdural hemorrhage with loss of consciousness status unknown, initial encounter Status: Acute Assessment and Plan: Patient presented to the ED 01/[address] injury and [address] head showing very small SDH along the left side of the anterior falx cerebri. She was sent to [facility] but she was monitored without intervention. CT brain 02/07 showing no acute findings. (4) Sepsis: Code(s): A41.9 - Sepsis, unspecified organism Status: Acute Assessment and Plan: Possible pneumonia vs UTI CXR concerning for PNA vs edema. BCx 02/07 positive for MRSA. TTE neg for endocarditis. per cardiology if repeat B/C neg no need for QI BCx 02/09 and 02/14 negative Pulmonary team was on board Respiratory pathogen panel positive for parainfluenza 3 IV antibiotics: -- Rocephin 02/07-, vancomycin started 02/09, Flagyl 02/11- -- Cefepime started 02/13 and completed a course on 02/19 WBC elevated but stable 16-20K range until 02/20 with WBC to 29K CT chest/Abd/Pelvis 02/20 showing airspace consolidation groundglass opacity throughout both lungs. Correlate for interval element of pulmonary edema versus bilateral pneumonia. Increasing small bilateral pleural effusions with bibasilar atelectatic change. New inflammatory change and/or fluid in the upper abdomen, suggestive of acute pancreatitis. UA with budding yeast with UCx 02/18 growing 10-49K Val dubliniensis. Fluconazole added 02/19 but patient refusing BCx 02/20 NGTD UCx 02/20 Negative Meropenem added 02/20 Vancomycin for MRSA bacteremia - completed 15 days and stopped 0n 02/23 Consider pancreatitis as reason for elevated WBC. No diarrhea or evidence of colitis to suggest CDIff. Covering MRSA, pseudomonas and ESBL. Doubt viral or fungal. No fevers. WBC better today. Continue meropenem for 7 days. Continue diflucan to IV. (5) MRSA bacteremia: Code(s): R78.81 - Bacteremia; B95.62 - Methicillin resistant Staphylococcus aureus infection as the cause of diseases classified elsewhere Status: Acute Assessment and Plan: As above (6) Anemia: Code(s): D64.9 - Anemia, unspecified Status: Acute Assessment and Plan: Normal baseline Hgb. Hgb 12 on admission here Hgb drifted down to 10-11 and stable until dropped to 8.4 today. Repeat HH stable. RN noted ?blood around her oral cavity so Pepcid started. Stool guaiac ordered. Monitor HH. (7) Pancreatitis: Code(s): K85.90 - Acute pancreatitis without necrosis or infection, unspecified Status: Acute Assessment and Plan: Patient with incidental finding of CT Abd/Pelvis showing new inflammatory change and/or fluid in the upper abdomen, suggestive of acute pancreatitis. Lipase was 5561. Repeat level close to normal now RUQ US showing no acute findings. She is s/p cholecystectomy. TG level normal. Exam relatively benign. Pancreatitis related to meds? Not eating so NGT placed and TF started. Patient can be placed in soft restraints if needed. was agreeable (8) JERRY (acute kidney injury): Code(s): N17.9 - Acute kidney failure, unspecified Status: Acute Assessment and Plan: Cr mostly 1.2-1.5 range through December 2024. Cr 3.6 on admission and did improve to 1.3 a few days after admission but has since been climbing. IV fluids and lasix on hold I/O: +11L. Concerning for fluid overload on exam and by imaging. BNP 27K (BNP 3K in October) Renal US unremarkable Prot/Cr 0.7gm. Kasandra 18. FENa 0.2% Vanc troughs elevated and likely indicated vanc toxicity? No contrast given since admission. Nephrology following and discussed; appreciate their input. She is not eating so TF started Creatinine up to 4 with severe metabolic acidosis (AG 18). Potassium okay Na Bicarb added via NG route Continue to monitor UOP, renal function and electrolytes. (9) DVT (deep venous thrombosis): Code(s): I82.409 - Acute embolism and thrombosis of unspecified deep veins of unspecified lower extremity Status: Acute Assessment and Plan: Doppler of the LUE negative for DVT Doppler of the bilateral LE showing bilateral DVT within the bilateral posterior tibial and peroneal veins. She is high risk for propagation to above the knee Heparin gtt started but will stop now since hx of recent cerebral hemorrhage and now dropping HH Monitor. Will need IVC filter if family decides to continue care plan (10) UTI (urinary tract infection): Qualifiers: Hematuria presence: without hematuria Urinary tract infection type: acute cystitis Qualified Code(s): N30.00 - Acute cystitis without hematuria Code(s): N39.0 - Urinary tract infection, site not specified Status: Acute Assessment and Plan: UA 02/18 showing 51-100 WB, 2+ LE and negative nitrates but drawn from a Castro Could be causing altered mental status but felt more psych related UCx 02/18 growing Val and fluconazole added Currently on meropenem. No evidence of fungemia. Vanco stopped 02/23. Diflucan changed to IV. UCx 02/20 negative. (11) Bipolar disorder: Qualifiers: Active/Remission status: currently active Code(s): F31.9 - Bipolar disorder, unspecified Status: Acute Assessment and Plan: Patient on Lamictal, duloxatine and sertraline but not taking regularly Duloxatine and sertraline stopped since not taking lamictal. And duloxatine contraindicated in JERRY Patient taking lamictal intermittently. Change to NG route Psych consulted and appreciate their input (12) HTN (hypertension): Qualifiers: Hypertension type: essential hypertension Qualified Code(s): I10 - Essential (primary) hypertension Code(s): I10 - Essential (primary) hypertension Status: Chronic Assessment and Plan: Patient's blood pressure was reviewed on 02/24 Blood pressure remains well controlled. Will continue to monitor (13) Diastolic dysfunction: Code(s): I51.89 - Other ill-defined heart diseases Status: Acute Assessment and Plan: Acute on chronic HFpEF dc 'd lasix due to JERRY cardiology team on board. Resume diuretics when able (14) Obstructive sleep apnea on CPAP: Code(s): G47.33 - Obstructive sleep apnea (adult) (pediatric); Z99.89 - Dependence on other enabling machines and devices Status: Acute Assessment and Plan: Does not appear to be on home CPAP (15) NSTEMI (non-ST elevated myocardial infarction): Code(s): I21.4 - Non-ST elevation (NSTEMI) myocardial infarction Status: Acute Assessment and Plan: Troponin: 0.287-0.364 Likely demand ischemia monitor for now Cardiology team on board (16) Acute hypoxemic respiratory failure: Code(s): J96.01 - Acute respiratory failure with hypoxia Status: Acute Assessment and Plan: Patieint with SOB and hypoxia 02/12 up to 4L. [place] related to CHF with her weight gain, imaging findings and BNP 28K. Patient received Lasix 40mg on 02/12 in the evening. There is no evidence of hypercarbic respiratory failure with ABG on 4 L 7.45/32/57. Weaned to room air. Follow (17) Diarrhea: Code(s): R19.7 - Diarrhea, unspecified Status: Acute Assessment and Plan: Likely cause of acute dehydration and hypokalemia Negative for C diff Imodium once on 02/12. Resolved (18) Acute hypokalemia: Code(s): E87.6 - Hypokalemia Status: Acute Assessment and Plan: Potassium was replaced. Levels normalized Continue monitoring Plan DVT prophylaxis - off heaprin due to hx of SDH and anemia. Will need IVC filter if family decides to continue full care. Code status - full Subjective Date/time seen: 02/24/25 11:46 Interval history: 69yo female history of bipolar 1, hypertension, brain tumor, iron deficiency anemia, CKD and SIMEON presents to the hospital with altered mental status from a senior living. Repeat CT brain overnight was unchanged. No problems overnight. NGT was held since plan was possible transfer. Not sleeping per staff Review of Systems Review of Systems: ROS unobtainable: Yes unobtainable due to mental status Exam Narrative: AF 97.9 144/75 93 18 94% ra Gen - NARD HEENT - darkish material noted inner lips but oral exam was limited Chest - lungs clear anteriorly CV - RRR S1/S2 Abd - Soft, NT/ND, +BS - Castro secured draining clear yellow urine with small volume noted in bag Ext - 1-2+ pitting UE>LE edema Neuro - does not respond to questions or follow commands. Jabbering with speech mostly clear. Psych - manic Skin - Warm and dry Objective Data Vital Signs Vital Signs: Vital Signs - 24 hr 02/23/25 12:00 02/23/25 14:00 02/23/25 16:00 Temperature 97.6 F Pulse Rate 103 H 94 97 Respiratory Rate 17 Blood Pressure 124/57 L Pulse Oximetry 97 Oxygen Delivery 02/23/25 20:00 02/23/25 21:07 02/24/25 00:00 Temperature 98 F Pulse Rate 90 90 88 Respiratory Rate 18 Blood Pressure 116/66 Pulse Oximetry 95 Oxygen Delivery 02/24/25 04:00 02/24/25 06:00 02/24/25 08:00 Temperature 97.9 F Pulse Rate 88 83 93 Respiratory Rate 18 Blood Pressure 144/75 H Pulse Oximetry 97 Oxygen Delivery 02/24/25 08:00 02/24/25 10:09 Temperature Pulse Rate Respiratory Rate Blood Pressure Pulse Oximetry 94 Oxygen Delivery Room Air Room Air Intake/Output Intake/Output: Intake & Output 02/21/25 02/22/25 02/23/25 02/24/25 23:59 23:59 23:59 23:59 Intake Total 1202.2 524.7 365.5 Output Total 250 100 375 250 Balance 952.2 424.7 -9.5 -250 Meds/Results Medications: Active Medications Generic Name Dose Route Start Last Admin Trade Name Freq PRN Reason Stop Dose Admin Acetaminophen 650 mg 02/23/25 15:26 Acetaminophen 325 Mg Tablet FEED TUBE Q4H PRN Mild Pain (1-3) or Fever Artificial Tears 1 drop 02/08/25 09:32 Artificial Tears Ophth Soln 15 Ml Bottle EACH EYE 03/10/25 09:31 PRN PRN dry eye(s) Carvedilol 18.75 mg 02/23/25 21:00 02/23/25 20:35 Carvedilol 6.25 Mg Tablet FEED TUBE Not Given Q12HR CARLIN Famotidine 20 mg 02/23/25 10:35 02/24/25 08:39 Famotidine 20 Mg/2 Ml Vial IV PUSH 20 mg Q12HR CARLIN Administration Meropenem 500 mg in 100 mls @ 200 mls/hr 02/20/25 10:30 02/23/25 20:23 IVPB 02/26/25 21:29 200 mls/hr Q12HR CARLIN Administration Fluconazole/Dextrose 100 mg in 50 mls @ 50 mls/hr 02/23/25 10:30 02/24/25 08:39 Diflucan 100 Mg/Nacl 50 Ml IVPB 03/08/25 09:59 50 mls/hr DAILY CARLIN Administration Lamotrigine 200 mg 02/23/25 21:00 02/23/25 20:36 Lamotrigine 100 Mg Tablet FEED TUBE Not Given Q12HR CARLIN Levalbuterol HCl 1.25 mg 02/23/25 07:38 Levalbuterol Neb 1.25 Mg/3 Ml INHALATION Q6HRT PRN Shortness Of Breath Or Wheezing Lorazepam 1 mg 02/09/25 15:15 02/15/25 10:49 Lorazepam (*Crx) 1 Mg Tablet PO 1 mg Q8H PRN Administration Anxiety Ondansetron HCl 4 mg 02/07/25 15:41 02/16/25 12:09 Ondansetron Inj 4 Mg/2 Ml Vial IV PUSH 4 mg Q4H PRN Administration Nausea Sodium Bicarbonate 1,300 mg 02/23/25 17:00 02/23/25 17:48 Sodium Bicarbonate Tab 650 Mg Tablet FEED TUBE Not Given BID CARLIN Radiology Results: ITS Impressions Modified Barium Swallow 02/14/25 11:22 IMPRESSION: Mild pharyngeal dysphagia with laryngeal penetration without aspiration. Please correlate with speech pathologist findings and specific feeding recommendations. Renal Ultrasound 02/19/25 15:09 IMPRESSION: 1. Normal kidneys without hydronephrosis. Chest/Abdomen/Pelvis CT 02/20/25 15:06 Impression: Airspace consolidation groundglass opacity throughout both lungs. Correlate for interval element of pulmonary edema versus bilateral pneumonia. Increasing small bilateral pleural effusions with bibasilar atelectatic change. New inflammatory change and/or fluid in the upper abdomen, suggestive of acute pancreatitis. Correlate clinically. Chest X-Ray 02/21/25 06:02 Impression: Probable patchy mild pulmonary edema pattern versus patchy bilateral pneumonia. Correlate clinically. Small right pleural effusion. Venous Doppler Study 02/21/25 07:40 IMPRESSION: Deep venous thrombosis within the bilateral posterior tibial and peroneal veins, as detailed above. Remainder of the examination is unremarkable. Upper Quadrant Ultrasound 02/21/25 12:03 IMPRESSION: Unremarkable limited ultrasound examination of the right upper quadrant, as detailed above. Head CT 02/23/25 21:46 IMPRESSION: No change from previous examination done on the same day. Abdomen X-Ray 02/24/25 10:02 IMPRESSION: Nasogastric tube in good position and ready for immediate use. Labs Labs: Laboratory Results - last 24 hr 02/23/25 02/23/25 02/24/25 14:24 23:44 05:16 WBC 24.2 H RBC 2.70 L Hgb 9.1 L 8.3 L 8.4 L Hct 30.4 L 25.7 L 26.7 L MCV 98.9 MCH 31.1 MCHC 31.5 L RDW 21.0 H Plt Count 388 H MPV 9.1 Immature Gran % (Auto) 5.8 H Neut % (Auto) 80.7 H Lymph % (Auto) 5.5 L [place] % (Auto) 7.1 Eos % (Auto) 0.2 Baso % (Auto) 0.7 Lymph # (Auto) 1.32 [place] # (Auto) 1.7 H Eos # (Auto) 0.1 Baso # (Auto) 0.2 H Abs Immat Gran (auto) 1.39 H Absolute Neuts (auto) 19.5 H Absolute Nucleated RBC 0.060 H Nucleated RBC % 0.2 PT 15.5 H D INR 1.2 APTT 75.3 H 44.3 H Sodium 142 Potassium 3.5 Chloride 113 H Carbon Dioxide 11 L Anion Gap 18 H BUN 65 H Creatinine 3.89 H Estim Creat Clear Calc 15 Estimated GFR 11 L Glucose 77 Calcium 8.6 Phosphorus 5.4 H Magnesium 2.5 H Total Bilirubin 0.5 AST 61 H ALT 20 Alkaline Phosphatase 191 H Total Protein 5.5 L Albumin 2.4 L
[2025-02-24] MEDS: SODIUM BICARBONATE TAB 650 MG TABLET 1300 MG FEED TUBE ×2 (12:15→16:22)
[2025-02-24] MEDS: MEROPENEM 500 MG/NS 100 ML 500 MG/100 ML BAG 200 MG IVPB ×2 (12:17→20:43)
[2025-02-24] MEDS: SODIUM CHLORIDE 0.9% IV 1,000 ML 75 ML IV CONT (12:20)
--- NOTE | 2025-02-24 15:54 | PC.NURSE ---
This RN had a long conversation regarding the current care and needs of patient. Pt is currently a full code. DNR explained to who would like to change her code status. Code status to be changed to DNR. MD made aware. Second nurse to witness change.
--- NOTE | 2025-02-24 20:00 | PC.NURSE ---
1953: FOLLOW UP WITH CT REGARDING STATUS AND ORDER. PER [employer] HELPER ESTIMATED TIME THEY WOULD BE ABLE TO SCAN IS IN AN HOUR.
[2025-02-24 23:21] LABS: IFOB Positive Control Positive; Immunochemical Fecal Occult Bl Positive (N)
[2025-02-25] VITALS (13 sets, daily range): BP systolic 121–141; BP diastolic 54–81; PULSE 88–102; RESP 18–20; TEMP 36.6–37.1; O2SAT 92–96
[2025-02-25] MEDS: ACETAMINOPHEN 325 MG TABLET 650 MG FEED TUBE (03:00)
--- NOTE | 2025-02-25 03:14 | PC.NURSE ---
[facility] rep, Mirna, updated on patient status. Await CT read.
[2025-02-25 06:06] LABS: Hematocrit 26.1 % (37.0-47.0); Hemoglobin 8.4 g/dL (12.0-15.0); Immature Granulocyte Percent A 7.0 % (0-0.5); Lymphocytes Absolute Auto 1.48 K/mm3 (0.9-3.2); Mean Corpuscular HGB Conc 32.2 g/dl (32-36); Mean Corpuscular Hemoglobin 31.9 pg (26-34); Mean Corpuscular Volume 99.2 fl (80-100); Nucleated Red Blood Cells Absolute Auto 0.220 K/mm3 (0.0-0.012); Nucleated Red Blood Cells Perc 0.9 % (0.0-0.2); Platelet Count Result 390 k/mm3 (150-375); Red Blood Count 2.63 M/mm3 (4.2-5.4); White Blood Count 23.5 K/mm3 (4.5-10.0)
[2025-02-25 06:18] LABS: Alanine Aminotransferase 24 U/L (6-35); Albumin Level 2.5 g/dL (3.5-5.1); Alkaline Phosphatase 337 U/L (38-126); Anion Gap 17 mmol/L (4-12); Aspartate Amino Transferase 71 U/L (14-36); Bilirubin,Total 0.5 mg/dL (0.2-1.3); Blood Urea Nitrogen 70 mg/dL (7-17); Calcium 9.0 mg/dL (8.4-10.2); Carbon Dioxide 11 mmol/L (22-30); Chloride 116 mmol/L (98-107); Estimated CRCL calculation 15 ml/min; Estimated Glomerular Filt Rate 11; Glucose 153 mg/dL (65-110); Magnesium 2.4 mg/dL (1.6-2.3); Potassium 3.7 mmol/L (3.4-5.0); Sodium 144 mmol/L (137-145); Total Protein 5.7 g/dL (6.3-8.2)
[2025-02-25 06:41] LABS: Anisocytosis 1+; Schistocytes None Seen
[2025-02-25] MEDS: FAMOTIDINE 20 MG/2 ML VIAL IV PUSH ×2 (08:57→21:04)
[2025-02-25] MEDS: SODIUM BICARBONATE TAB 650 MG TABLET 1300 MG FEED TUBE ×3 (08:59→16:33)
[2025-02-25] MEDS: MEROPENEM 500 MG/NS 100 ML 500 MG/100 ML BAG 200 MG IVPB ×2 (09:04→21:08)
[2025-02-25] MEDS: FLUCONAZOLE 100 MG/NACL 50 ML 100 MG/50 ML BTL 50 MG IVPB (09:37)
--- NOTE | 2025-02-25 12:40 | P.PNNP_ITS ---
Progress Note: A&P Assessment and Plan (1) Acute kidney injury: Code(s): N17.9 - Acute kidney failure, unspecified Status: Acute Assessment and Plan: * continues to decline/worsen... * as noted on admission (creatinine 3.63mg/dl) * interestingly, associated with significant hypokalemia * transiently improved to 1.27mg/dl (on 02/12) * then started to progressively deteriorate again on 02/13 * suspect multifactorial etiology: * prerenal factors (poor oral intake) * infection/sepsis (bacteremia + UTI) * diuretic use * antibiotics (vancomycin toxicity?) * other? * evaluation to date noted: * normal renal ultrasound * urine electrolytes pre-renal * urine eosinophils negative * moderate proteinuria (~ 700mg) * CPK low * off IVFs due to concern of volume overload * significant acidosis noted as well (but refusing to take sodium bicarbonate tabs) * follow repeat labs and UOP (2) Stage 3 chronic kidney disease: Code(s): N18.30 - Chronic kidney disease, stage 3 unspecified Status: Chronic Assessment and Plan: * baseline creatinine runs ~ 1.0 - 1.5mg/dl * presumably due to hypertension, SIMEON, obesity, and age-related change (3) Altered mental status: Qualifiers: Altered mental status type: delirium Qualified Code(s): R41.0 - Disorientation, unspecified Code(s): R41.82 - Altered mental status, unspecified Status: Acute Assessment and Plan: * etiology not clear * possible issues include: * infection (bacteremia + fungal UTI) * previous hypoxia * previous SDH * electrolyte imbalance (low K+ but corrected) * psychiatric (known bipolar disorder) * CT of head without any acute findings * holding sedating medications * ongoing PT/OT/ST * follow trend of mentation (4) Sepsis: Code(s): A41.9 - Sepsis, unspecified organism Status: Acute Assessment and Plan: * due to several issues: * blood culture (1 set out of 2) with MRSA from 02/07 * possible pneumonia imaging (completed course of antibiotics) * fungal UTI [UA with budding yeast; urine culture with Val dubliniensis -- (fluconazole added 02/19 but patient refusing/not taking consistently] * repeat blood cultures (02/09 + 02/14) with no growth * respiratory pathogen panel positive for parainfluenza 3 * however worsening leukocytosis noted on 02/20 * CT C/A/P (on 02/20): showing airspace consolidation ground glass opacity throughout both lungs (correlate for interval element of pulmonary edema versus bilateral pneumonia); increasing small bilateral pleural effusions with bibasilar atelectatic change; new inflammatory change and/or fluid in the upper abdomen, suggestive of acute pancreatitis. * repeat blood cultures (02/20) with now growth to date * repeat urine culture (02/20) with no growth * meropenem added 02/20 * remains on vancomycin for MRSA bacteremia * continue supportive therapy (5) MRSA bacteremia: Code(s): R78.81 - Bacteremia; B95.62 - Methicillin resistant Staphylococcus aureus infection as the cause of diseases classified elsewhere Status: Acute Assessment and Plan: * as noted by culture data: * 1 out of 2 sets noted on 02/07 * repeat cultures to date negative * on vancomycin (6) UTI (urinary tract infection): Qualifiers: Urinary tract infection type: acute cystitis Hematuria presence: without hematuria Qualified Code(s): N30.00 - Acute cystitis without hematuria Code(s): N39.0 - Urinary tract infection, site not specified Status: Acute Assessment and Plan: * admission UA (on 02/18) with 51-100 WB, 2+ LE and negative nitrates (but drawn from a [facility]) * urine culture with Val * on fluconazole (but refusing to take) (7) Pancreatitis: Code(s): K85.90 - Acute pancreatitis without necrosis or infection, unspecified Status: Acute Assessment and Plan: * incidental finding of 02/20 CT imaging: * new inflammatory change and/or fluid in the upper abdomen, suggestive of acute pancreatitis * lipase was 5561 with slow improvement * RUQ US showing no acute findings -- she is s/p cholecystectomy * benign exam and not complaining of abdominal pain * follow trend of lipase (8) DVT (deep venous thrombosis): Code(s): I82.409 - Acute embolism and thrombosis of unspecified deep veins of unspecified lower extremity Status: Acute Assessment and Plan: * dopplers of upper extremities and lower extremeties (on 02/20) noted: * negative for UEs * LEs with showing bilateral DVTs within the bilateral posterior tibial and peroneal veins. * on heparin gtt * switch to oral medication when patient taking oral medications reliably/consistently (9) Acute hypoxemic respiratory failure: Code(s): J96.01 - Acute respiratory failure with hypoxia Status: Acute Assessment and Plan: * resolved * thought to be secondary to acute CHF, pneumonia, and possibly refusal to wear CPAP * s/p diuresis with clinical improvement * weaned to room air * follow respiratory status closely given #1 (10) HTN (hypertension): Qualifiers: Hypertension type: essential hypertension Qualified Code(s): I10 - Essential (primary) hypertension Code(s): I10 - Essential (primary) hypertension Status: Chronic Assessment and Plan: * reasonable control * follow trend of hemodyamics (11) Diastolic dysfunction: Code(s): I51.89 - Other ill-defined heart diseases Status: Acute Assessment and Plan: * evidence of exacerbation earlier in hospital course * Cardiology recommendations noted * however, off lasix at this time due to #1 * follow volume status closely (12) Bipolar disorder: Qualifiers: Active/Remission status: currently active Code(s): F31.9 - Bipolar disorder, unspecified Status: Acute Assessment and Plan: * on Lamictal and sertraline * however, not taking regularly due to refusal at times * suspect may be playing a role with #3 * further intervention(?) Will continue to follow. Subjective Date/time seen: 02/25/25 12:40 Interval history: Follow-up for acute kidney injury/acute renal failure on chronic kidney disease. No real significant change with regard to mental status -- talking/mumbling to herself at the time of my visit and does not answer questions when asked; NG tube in place and in soft restraints; renal function/creatinine as well as urine output continues to fluctuate. Exam Narrative: General: somewhat ill-appearing female in NAD Heart: normal S1 and S2; no rub Lungs: coarse breath sounds Abdomen: soft, nontender, nondistended, positive bowel sounds Extremities: no cyanosis or clubbing; 1+ edema Skin: warm and intact Objective Data Vital Signs Vital Signs: Vital Signs Temp Pulse Resp BP Pulse Ox O2 Del Method 02/25/25 12:00 94 02/25/25 09:00 101 H 02/25/25 08:00 101 H 02/25/25 08:00 Room Air Intake/Output Intake/Output: Intake & Output 02/23/25 02/24/25 02/25/25 02/26/25 23:59 23:59 23:59 23:59 Intake Total 465.5 250 1734 1421 Output Total 375 400 150 375 Balance 90.5 -150 1584 1046 Meds/Results Medications: Active Medications Generic Name Dose Route Start Last Admin Trade Name Freq PRN Reason Stop Dose Admin Acetaminophen 650 mg 02/23/25 15:26 02/25/25 03:00 Acetaminophen 325 Mg Tablet FEED TUBE 650 mg Q4H PRN Administration Mild Pain (1-3) or Fever Artificial Tears 1 drop 02/08/25 09:32 Artificial Tears Ophth Soln 15 Ml Bottle EACH EYE 03/10/25 09:31 PRN PRN dry eye(s) Carvedilol 18.75 mg 02/23/25 21:00 02/25/25 21:04 Carvedilol 6.25 Mg Tablet FEED TUBE 18.75 mg Q12HR CARLIN Administration Dextrose 12.5 gm 02/26/25 07:21 Dextrose 50% 25 Gm/50 Ml Syringe IV PUSH PRN PRN Hypoglycemia Protocol Famotidine 20 mg 02/23/25 10:35 02/25/25 21:04 Famotidine 20 Mg/2 Ml Vial IV PUSH 20 mg Q12HR CARLIN Administration Glucagon 1 mg 02/26/25 07:21 Glucagon For Inj 1 Mg Vial IM PRN PRN Hypoglycemia Protocol Glucose 15 gm 02/26/25 07:21 Glucose Oral Gel 15 Gm Of Glucse In 37.5 Gm Tube PO PRN PRN Hypoglycemia Protocol Meropenem 500 mg in 100 mls @ 200 mls/hr 02/20/25 10:30 02/25/25 21:38 IVPB 02/26/25 21:29 Infused Q12HR CARLIN Infusion Fluconazole/Dextrose 100 mg in 50 mls @ 50 mls/hr 02/23/25 10:30 02/25/25 09:37 Diflucan 100 Mg/Nacl 50 Ml IVPB 03/08/25 09:59 50 mls/hr DAILY CARLIN Administration Dextrose 1,000 mls @ 100 mls/hr 02/26/25 07:21 Dextrose 5% 1,000 Ml IVPB PRN PRN Hypoglycemia Protocol Insulin Aspart 4 - 8 units 02/26/25 12:00 Insulin Aspart (*Bkc) 100 Units/Ml SUB-Q Q6HR CARLIN Protocol Lamotrigine 200 mg 02/23/25 21:00 02/25/25 21:04 Lamotrigine 100 Mg Tablet FEED TUBE 200 mg Q12HR CARLIN Administration Levalbuterol HCl 1.25 mg 02/23/25 07:38 Levalbuterol Neb 1.25 Mg/3 Ml INHALATION Q6HRT PRN Shortness Of Breath Or Wheezing Lorazepam 1 mg 02/09/25 15:15 02/15/25 10:49 Lorazepam (*Crx) 1 Mg Tablet PO 1 mg Q8H PRN Administration Anxiety Ondansetron HCl 4 mg 02/07/25 15:41 02/16/25 12:09 Ondansetron Inj 4 Mg/2 Ml Vial IV PUSH 4 mg Q4H PRN Administration Nausea Sodium Bicarbonate 1,300 mg 02/25/25 13:00 02/25/25 16:33 Sodium Bicarbonate Tab 650 Mg Tablet FEED TUBE 1,300 mg TID CARLIN Administration Radiology Results: ITS Impressions Modified Barium Swallow 02/14/25 11:22 IMPRESSION: Mild pharyngeal dysphagia with laryngeal penetration without aspiration. Please correlate with speech pathologist findings and specific feeding recommendations. Renal Ultrasound 02/19/25 15:09 IMPRESSION: 1. Normal kidneys without hydronephrosis. Chest/Abdomen/Pelvis CT 02/20/25 15:06 Impression: Airspace consolidation groundglass opacity throughout both lungs. Correlate for interval element of pulmonary edema versus bilateral pneumonia. Increasing small bilateral pleural effusions with bibasilar atelectatic change. New inflammatory change and/or fluid in the upper abdomen, suggestive of acute pancreatitis. Correlate clinically. Chest X-Ray 02/21/25 06:02 Impression: Probable patchy mild pulmonary edema pattern versus patchy bilateral pneumonia. Correlate clinically. Small right pleural effusion. Venous Doppler Study 02/21/25 07:40 IMPRESSION: Deep venous thrombosis within the bilateral posterior tibial and peroneal veins, as detailed above. Remainder of the examination is unremarkable. Upper Quadrant Ultrasound 02/21/25 12:03 IMPRESSION: Unremarkable limited ultrasound examination of the right upper quadrant, as detailed above. Abdomen X-Ray 02/24/25 10:02 IMPRESSION: Nasogastric tube in good position and ready for immediate use. Head CT 02/25/25 07:48 Impression: Redemonstration of a focus of increased attenuation along the right frontal parietal lobe, high in the convexity, decreased in size from original examination which may be artifactual in origin. No surrounding vasogenic edema. No midline shift. If clinically able, MRI examination is suggested as follow-up. Inflammatory sinus disease. Labs Labs: Laboratory Results - last 28 hr 02/25/25 05:25 WBC 23.5 H Hgb 8.4 L Hct 26.1 L Plt Count 390 H Sodium 144 Potassium 3.7 Chloride 116 H Carbon Dioxide 11 L Anion Gap 17 H BUN 70 H Creatinine 4.02 H Estim Creat Clear Calc 15 Estimated GFR 11 L Glucose 153 H Calcium 9.0 Phosphorus 4.6 H Magnesium 2.4 H Total Bilirubin 0.5 AST 71 H ALT 24 Alkaline Phosphatase 337 H Total Protein 5.7 L Albumin 2.5 L
--- NOTE | 2025-02-25 15:44 | P.PNIM_ITS ---
Progress Note: A&P Assessment and Plan (1) Altered mental status: Qualifiers: Altered mental status type: delirium Qualified Code(s): R41.0 - Disorientation, unspecified Code(s): R41.82 - Altered mental status, unspecified Status: Acute Assessment and Plan: Infection verses stroke versus electrolyte imbalance versus other (psych) CT head 02/07 showing no acute findings (CT head 01/11/25 showing small SDH and was sent to [facility] at that time) Psych evaluation performed and appreciate their input. Haldol prn recommended to control mood disorder PT/OT/ST Mental status still poor with nonsensical speech. NGT placed and Lamictal resumed. Continue same dose since she has been taking it intermittently. Monitor for improvement. Ativan prn for agitation. (2) Epidural hematoma: Code(s): S06.4XAA - Epidural hemorrhage with loss of consciousness status unknown, initial encounter Status: Acute Assessment and Plan: CT brain 02/23 showing possible right-sided frontal lobe epidural hematoma. Could be artifact but concerning for cerebral hemorrhage given the fact that she was on heparin with supratherapeutic PTT. Spoke with [facility] (Dr Baeza) neurosurgery. He recommended repeating CT brain in 4-6 hours which showed no change. Repeat CT brain 24 hours later showing redemonstration of a focus of increased attenuation along the right frontal parietal lobe, high in the convexity, decreased in size from original examination which may be artifactual in origin. No surrounding vasogenic edema. No midline shift. Holding all anticoagulation. Consider MRI to determine if this is a true finding if family wants to continue care plan. (3) SDH (subdural hematoma): Code(s): S06.5XAA - Traumatic subdural hemorrhage with loss of consciousness status unknown, initial encounter Status: Acute Assessment and Plan: Patient presented to the ED 01/[address] injury and [address] head showing very small SDH along the left side of the anterior falx cerebri. She was sent to [facility] where she was monitored without intervention. CT brain 02/07 showing no acute findings. Otherwise as above (4) Sepsis: Code(s): A41.9 - Sepsis, unspecified organism Status: Acute Assessment and Plan: Possible pneumonia vs UTI CXR concerning for PNA vs edema. BCx 02/07 positive for MRSA. TTE neg for endocarditis. per cardiology if repeat B/C neg no need for QI BCx 02/09 and 02/14 negative Pulmonary team was on board Respiratory pathogen panel positive for parainfluenza 3 IV antibiotics: -- Rocephin 02/07-, vancomycin started 02/09, Flagyl 02/11- -- Cefepime started 02/13 and completed a course on 02/19 WBC elevated but stable 16-20K range until 02/20 with WBC to 29K CT chest/Abd/Pelvis 02/20 showing airspace consolidation groundglass opacity throughout both lungs. Correlate for interval element of pulmonary edema versus bilateral pneumonia. Increasing small bilateral pleural effusions with bibasilar atelectatic change. New inflammatory change and/or fluid in the upper abdomen, suggestive of acute pancreatitis. UA with budding yeast with UCx 02/18 growing 10-49K Val [place]. Fluconazole added 02/19 but patient refusing BCx 02/20 NGTD UCx 02/20 Negative Meropenem added 02/20 Vancomycin for MRSA bacteremia - completed 15 days and stopped 0n 02/23 Consider pancreatitis as reason for elevated WBC. No diarrhea or evidence of colitis to suggest CDIff. Covering MRSA, pseudomonas and ESBL. Doubt viral or fungal. No fevers. WBC better again today. Continue meropenem for 7 days. Continue diflucan IV. (5) MRSA bacteremia: Code(s): R78.81 - Bacteremia; B95.62 - Methicillin resistant Staphylococcus aureus infection as the cause of diseases classified elsewhere Status: Acute Assessment and Plan: As above (6) Anemia: Code(s): D64.9 - Anemia, unspecified Status: Acute Assessment and Plan: Normal baseline Hgb. Hgb 12 on admission here Hgb drifted down to 10-11 and stable until dropped to 8 range on 02/23 Repeat HH stable. RN noted ?blood around her oral cavity so Pepcid started. Stool guaiac positive but felt related to oral bleeding. Monitor HH. (7) Pancreatitis: Code(s): K85.90 - Acute pancreatitis without necrosis or infection, unspecified Status: Acute Assessment and Plan: Patient with incidental finding of CT Abd/Pelvis showing new inflammatory change and/or fluid in the upper abdomen, suggestive of acute pancreatitis. Lipase was 5561. Repeat level close to normal now RUQ US showing no acute findings. She is s/p cholecystectomy. TG level normal. Exam showing patient with more abd pain. NGT placed and TF started. Patient can be placed in soft restraints if needed. was agreeable (8) JERRY (acute kidney injury): Code(s): N17.9 - Acute kidney failure, unspecified Status: Acute Assessment and Plan: Cr mostly 1.2-1.5 range through December 2024. Cr 3.6 on admission and did improve to 1.3 a few days after admission but has since been climbing. IV fluids and lasix on hold I/O: +12L. Concerning for fluid overload on exam and by imaging. BNP 27K (BNP 3K in October) Renal US unremarkable Prot/Cr 0.7gm. [place] 18. FENa 0.2% Vanc troughs elevated and likely indicated vanc toxicity? No contrast given since admission. Nephrology following and appreciate their input. She is not eating so TF started Creatinine up to 4 with severe metabolic acidosis (AG 17). Potassium okay Na Bicarb added via NG route Continue to monitor UOP, renal function and electrolytes. (9) DVT (deep venous thrombosis): Code(s): I82.409 - Acute embolism and thrombosis of unspecified deep veins of unspecified lower extremity Status: Acute Assessment and Plan: Doppler of the LUE negative for DVT Doppler of the bilateral LE showing bilateral DVT within the bilateral posterior tibial and peroneal veins. She is high risk for propagation to above the knee Heparin gtt started but now stopped since hx of recent cerebral hemorrhage and dropping HH Monitor. Will need IVC filter if family decides to continue care plan (10) UTI (urinary tract infection): Qualifiers: Urinary tract infection type: acute cystitis Hematuria presence: without hematuria Qualified Code(s): N30.00 - Acute cystitis without hematuria Code(s): N39.0 - Urinary tract infection, site not specified Status: Acute Assessment and Plan: UA 02/18 showing 51-100 WB, 2+ LE and negative nitrates but drawn from a [place] Could be causing altered mental status but felt more psych related UCx 02/18 growing Val and fluconazole added Currently on meropenem. No evidence of fungemia. Vanco stopped 02/23. Diflucan changed to IV. UCx 02/20 negative. (11) Bipolar disorder: Qualifiers: Active/Remission status: currently active Code(s): F31.9 - Bipolar disorder, unspecified Status: Acute Assessment and Plan: Patient on Lamictal, duloxatine and sertraline but not taking regularly Duloxatine and sertraline stopped since not taking lamictal. And duloxatine contraindicated in JERRY Patient taking lamictal intermittently. Changed to NG route Psych consulted and appreciate their input (12) HTN (hypertension): Qualifiers: Hypertension type: essential hypertension Qualified Code(s): I10 - Essential (primary) hypertension Code(s): I10 - Essential (primary) hypertension Status: Chronic Assessment and Plan: Patient's blood pressure was reviewed on 02/25 Blood pressure remains well controlled. Will continue to monitor (13) Diastolic dysfunction: Code(s): I51.89 - Other ill-defined heart diseases Status: Acute Assessment and Plan: Acute on chronic HFpEF dc 'd lasix due to JERRY cardiology team on board. Resume diuretics when able (14) Obstructive sleep apnea on CPAP: Code(s): G47.33 - Obstructive sleep apnea (adult) (pediatric); Z99.89 - Dependence on other enabling machines and devices Status: Acute Assessment and Plan: Does not appear to be on home CPAP (15) NSTEMI (non-ST elevated myocardial infarction): Code(s): I21.4 - Non-ST elevation (NSTEMI) myocardial infarction Status: Acute Assessment and Plan: Troponin: 0.287-0.364 Likely demand ischemia monitor for now Cardiology team was following (16) Acute hypoxemic respiratory failure: Code(s): J96.01 - Acute respiratory failure with hypoxia Status: Acute Assessment and Plan: Patieint with SOB and hypoxia 02/12 up to 4L. [place] related to CHF with her weight gain, imaging findings and BNP 28K. Patient received Lasix 40mg on 02/12 in the evening. There is no evidence of hypercarbic respiratory failure with ABG on 4 L 7.45/32/57. Weaned to room air. Follow (17) Diarrhea: Code(s): R19.7 - Diarrhea, unspecified Status: Acute Assessment and Plan: Likely cause of acute dehydration and hypokalemia Negative for C diff. Stool culture negative. Imodium once on 02/12. Resolved (18) Acute hypokalemia: Code(s): E87.6 - Hypokalemia Status: Acute Assessment and Plan: Potassium was replaced. Levels normalized Continue monitoring Plan DVT prophylaxis - off heaprin due to hx of SDH and anemia. Will need IVC filter if family decides to continue full care. Code status - full Subjective Date/time seen: 02/25/25 15:44 Interval history: 69yo female history of bipolar 1, hypertension, brain tumor, iron deficiency anemia, CKD and SIMEON presents to the hospital with altered mental status from a shelter. Eyes closed with mumbled speech. NGT placed. She is unable to provide hx. Review of Systems Review of Systems: ROS unobtainable: Yes unobtainable due to mental status Exam Narrative: AF 97.9 144/75 93 18 94% ra Gen - NARD HEENT - darkish material noted oral cavity with limited exam Chest - mildly coarse BS CV - RRR S1/S2. Tele showing brief run of ?SVT Abd - Soft, ND, mild pain mid-abdomen. - Castor secured draining clear yellow urine Ext - 1-2+ pitting UE>LE edema Neuro - does not respond to questions or follow commands. Jabbering with speech garbled. Psych - dificult to assess Skin - Warm and dry Objective Data Vital Signs Vital Signs: Vital Signs - 24 hr 02/24/25 16:00 02/24/25 20:00 02/24/25 20:42 Temperature Pulse Rate 98 100 86 Respiratory Rate Blood Pressure Pulse Oximetry Oxygen Delivery 02/24/25 21:20 02/24/25 21:37 02/25/25 00:00 Temperature 98.4 F Pulse Rate 77 101 H Respiratory Rate 18 Blood Pressure 141/52 H Pulse Oximetry 95 Oxygen Delivery Room Air 02/25/25 03:12 02/25/25 04:00 02/25/25 05:01 Temperature 98.8 F Pulse Rate 100 101 H 102 H Respiratory Rate 20 Blood Pressure 141/61 H Pulse Oximetry 96 96 Oxygen Delivery 02/25/25 08:00 02/25/25 08:00 02/25/25 09:00 Temperature Pulse Rate 101 H 101 H Respiratory Rate Blood Pressure Pulse Oximetry Oxygen Delivery Room Air 02/25/25 12:00 02/25/25 14:00 Temperature 98.1 F Pulse Rate 94 88 Respiratory Rate 20 Blood Pressure 121/81 Pulse Oximetry 92 Oxygen Delivery Intake/Output Intake/Output: Intake & Output 02/22/25 02/23/25 02/24/25 02/25/25 23:59 23:59 23:59 23:59 Intake Total 524.7 465.5 250 1534 Output Total 100 375 400 150 Balance 424.7 90.5 -150 1384 Meds/Results Medications: Active Medications Generic Name Dose Route Start Last Admin Trade Name Freq PRN Reason Stop Dose Admin Acetaminophen 650 mg 02/23/25 15:26 02/25/25 03:00 Acetaminophen 325 Mg Tablet FEED TUBE 650 mg Q4H PRN Administration Mild Pain (1-3) or Fever Artificial Tears 1 drop 02/08/25 09:32 Artificial Tears Ophth Soln 15 Ml Bottle EACH EYE 03/10/25 09:31 PRN PRN dry eye(s) Carvedilol 18.75 mg 02/23/25 21:00 02/25/25 09:00 Carvedilol 6.25 Mg Tablet FEED TUBE 18.75 mg Q12HR CARLIN Administration Famotidine 20 mg 02/23/25 10:35 02/25/25 08:57 Famotidine 20 Mg/2 Ml Vial IV PUSH 20 mg Q12HR CARLIN Administration Meropenem 500 mg in 100 mls @ 200 mls/hr 02/20/25 10:30 02/25/25 09:04 IVPB 02/26/25 21:29 200 mls/hr Q12HR CARLIN Administration Fluconazole/Dextrose 100 mg in 50 mls @ 50 mls/hr 02/23/25 10:30 02/25/25 09:37 Diflucan 100 Mg/Nacl 50 Ml IVPB 03/08/25 09:59 50 mls/hr DAILY CARLIN Administration Lamotrigine 200 mg 02/23/25 21:00 02/25/25 09:01 Lamotrigine 100 Mg Tablet FEED TUBE 200 mg Q12HR CARLIN Administration Levalbuterol HCl 1.25 mg 02/23/25 07:38 Levalbuterol Neb 1.25 Mg/3 Ml INHALATION Q6HRT PRN Shortness Of Breath Or Wheezing Lorazepam 1 mg 02/09/25 15:15 02/15/25 10:49 Lorazepam (*Crx) 1 Mg Tablet PO 1 mg Q8H PRN Administration Anxiety Ondansetron HCl 4 mg 02/07/25 15:41 02/16/25 12:09 Ondansetron Inj 4 Mg/2 Ml Vial IV PUSH 4 mg Q4H PRN Administration Nausea Sodium Bicarbonate 1,300 mg 02/25/25 13:00 02/25/25 12:46 Sodium Bicarbonate Tab 650 Mg Tablet FEED TUBE 1,300 mg TID CARLIN Administration Radiology Results: ITS Impressions Modified Barium Swallow 02/14/25 11:22 IMPRESSION: Mild pharyngeal dysphagia with laryngeal penetration without aspiration. Please correlate with speech pathologist findings and specific feeding recommendations. Renal Ultrasound 02/19/25 15:09 IMPRESSION: 1. Normal kidneys without hydronephrosis. Chest/Abdomen/Pelvis CT 02/20/25 15:06 Impression: Airspace consolidation groundglass opacity throughout both lungs. Correlate for interval element of pulmonary edema versus bilateral pneumonia. Increasing small bilateral pleural effusions with bibasilar atelectatic change. New inflammatory change and/or fluid in the upper abdomen, suggestive of acute pancreatitis. Correlate clinically. Chest X-Ray 02/21/25 06:02 Impression: Probable patchy mild pulmonary edema pattern versus patchy bilateral pneumonia. Correlate clinically. Small right pleural effusion. Venous Doppler Study 02/21/25 07:40 IMPRESSION: Deep venous thrombosis within the bilateral posterior tibial and peroneal veins, as detailed above. Remainder of the examination is unremarkable. Upper Quadrant Ultrasound 02/21/25 12:03 IMPRESSION: Unremarkable limited ultrasound examination of the right upper quadrant, as detailed above. Abdomen X-Ray 02/24/25 10:02 IMPRESSION: Nasogastric tube in good position and ready for immediate use. Head CT 02/25/25 07:48 Impression: Redemonstration of a focus of increased attenuation along the right frontal parietal lobe, high in the convexity, decreased in size from original examination which may be artifactual in origin. No surrounding vasogenic edema. No midline shift. If clinically able, MRI examination is suggested as follow-up. Inflammatory sinus disease. Labs Labs: Laboratory Results - last 24 hr 02/24/25 02/25/25 21:25 05:25 WBC 23.5 H RBC 2.63 L Hgb 8.4 L Hct 26.1 L MCV 99.2 MCH 31.9 MCHC 32.2 RDW 20.7 H Plt Count 390 H MPV 9.5 Immature Gran % (Auto) 7.0 H Neut % (Auto) 79.8 H Lymph % (Auto) 6.3 L [place] % (Auto) 6.6 Eos % (Auto) 0.1 Baso % (Auto) 0.2 Lymph # (Auto) 1.48 [place] # (Auto) 1.5 H Eos # (Auto) 0.0 Baso # (Auto) 0.1 Abs Immat Gran (auto) 1.65 H Absolute Neuts (auto) 18.8 H Absolute Nucleated RBC 0.220 H Band Neutrophils % Not Reportable Nucleated RBC % 0.9 H Platelet Estimate Increased Anisocytosis 1+ Schistocytes None seen Sodium 144 Potassium 3.7 Chloride 116 H Carbon Dioxide 11 L Anion Gap 17 H BUN 70 H Creatinine 4.02 H Estim Creat Clear Calc 15 Estimated GFR 11 L Glucose 153 H Calcium 9.0 Phosphorus 4.6 H Magnesium 2.4 H Total Bilirubin 0.5 AST 71 H ALT 24 Alkaline Phosphatase 337 H Total Protein 5.7 L Albumin 2.5 L Stl Occult Blood (IFOB) Positive H
[2025-02-26] VITALS (11 sets, daily range): BP systolic 105–135; BP diastolic 48–78; PULSE 59–92; RESP 18–20; TEMP 36.6–36.7; O2SAT 91–95
[2025-02-26 06:36] LABS: Hematocrit 28.5 % (37.0-47.0); Hemoglobin 8.8 g/dL (12.0-15.0); Immature Granulocyte Percent A 11.2 % (0-0.5); Lymphocytes Absolute Auto 2.38 K/mm3 (0.9-3.2); Mean Corpuscular HGB Conc 30.9 g/dl (32-36); Mean Corpuscular Hemoglobin 31.1 pg (26-34); Mean Corpuscular Volume 100.7 fl (80-100); Nucleated Red Blood Cells Absolute Auto 0.310 K/mm3 (0.0-0.012); Nucleated Red Blood Cells Perc 1.4 % (0.0-0.2); Platelet Count Result 393 k/mm3 (150-375); Red Blood Count 2.83 M/mm3 (4.2-5.4); White Blood Count 22.0 K/mm3 (4.5-10.0)
[2025-02-26 06:48] LABS: Alanine Aminotransferase 32 U/L (6-35); Albumin Level 2.7 g/dL (3.5-5.1); Alkaline Phosphatase 323 U/L (38-126); Anion Gap 14 mmol/L (4-12); Aspartate Amino Transferase 113 U/L (14-36); Bilirubin,Total 0.4 mg/dL (0.2-1.3); Blood Urea Nitrogen 78 mg/dL (7-17); Calcium 9.3 mg/dL (8.4-10.2); Carbon Dioxide 17 mmol/L (22-30); Chloride 116 mmol/L (98-107); Estimated CRCL calculation 15 ml/min; Estimated Glomerular Filt Rate 11; Glucose 275 mg/dL (65-110); Magnesium 2.7 mg/dL (1.6-2.3); Potassium 3.7 mmol/L (3.4-5.0); Sodium 147 mmol/L (137-145); Total Protein 6.0 g/dL (6.3-8.2)
[2025-02-26 07:16] LABS: Anisocytosis 2+; Ovalocytes 1+
[2025-02-26 07:17] LABS: Basophilic Stippling 1+; Schistocytes None Seen
[2025-02-26 07:46] LABS: Creatine Kinase < 20 U/L (30-135)
[2025-02-26 08:57] LABS: Hemoglobin A1C 4.7 % (<5.7)
[2025-02-26] MEDS: MEROPENEM 500 MG/NS 100 ML 500 MG/100 ML BAG 200 MG IVPB ×2 (09:47→20:34)
[2025-02-26] MEDS: FLUCONAZOLE 100 MG/NACL 50 ML 100 MG/50 ML BTL 50 MG IVPB (09:56)
[2025-02-26] MEDS: FAMOTIDINE 20 MG TABLET FEED TUBE ×2 (09:57→20:34)
[2025-02-26] MEDS: SODIUM BICARBONATE TAB 650 MG TABLET 1300 MG FEED TUBE ×3 (09:58→17:35)
--- NOTE | 2025-02-26 09:58 | PC.NURSE ---
RN called hospitalist Beatrice to update him on status of patient's IV status. No answer.
--- NOTE | 2025-02-26 11:04 | P.PNNP_ITS ---
Progress Note: A&P Assessment and Plan (1) Acute kidney injury: Code(s): N17.9 - Acute kidney failure, unspecified Status: Acute Assessment and Plan: * continues to decline/worsen... * as noted on admission (creatinine 3.63mg/dl) * interestingly, associated with significant hypokalemia * transiently improved to 1.27mg/dl (on 02/12) * then started to progressively deteriorate again on 02/13 * suspect multifactorial etiology: * prerenal factors (poor oral intake) * infection/sepsis (bacteremia + UTI) * diuretic use * antibiotics (vancomycin toxicity?) * other? * evaluation to date noted: * normal renal ultrasound * urine electrolytes pre-renal * urine eosinophils negative * moderate proteinuria (~ 700mg) * CPK low * off IVFs due to concern of volume overload * significant acidosis noted as well (but refusing to take sodium bicarbonate tabs) * follow repeat labs and UOP (2) Stage 3 chronic kidney disease: Code(s): N18.30 - Chronic kidney disease, stage 3 unspecified Status: Chronic Assessment and Plan: * baseline creatinine runs ~ 1.0 - 1.5mg/dl * presumably due to hypertension, SIMEON, obesity, and age-related change (3) Altered mental status: Qualifiers: Altered mental status type: delirium Qualified Code(s): R41.0 - Disorientation, unspecified Code(s): R41.82 - Altered mental status, unspecified Status: Acute Assessment and Plan: * etiology not clear * possible issues include: * infection (bacteremia + fungal UTI) * previous hypoxia * previous SDH * electrolyte imbalance (low K+ but corrected) * psychiatric (known bipolar disorder) * CT of head without any acute findings * holding sedating medications * ongoing PT/OT/ST * follow trend of mentation (4) Sepsis: Code(s): A41.9 - Sepsis, unspecified organism Status: Acute Assessment and Plan: * due to several issues: * blood culture (1 set out of 2) with MRSA from 02/07 * possible pneumonia imaging (completed course of antibiotics) * fungal UTI [UA with budding yeast; urine culture with Val dubliniensis -- (fluconazole added 02/19 but patient refusing/not taking consistently] * repeat blood cultures (02/09 + 02/14) with no growth * respiratory pathogen panel positive for parainfluenza 3 * however worsening leukocytosis noted on 02/20 * CT C/A/P (on 02/20): showing airspace consolidation ground glass opacity throughout both lungs (correlate for interval element of pulmonary edema versus bilateral pneumonia); increasing small bilateral pleural effusions with bibasilar atelectatic change; new inflammatory change and/or fluid in the upper abdomen, suggestive of acute pancreatitis. * repeat blood cultures (02/20) with now growth to date * repeat urine culture (02/20) with no growth * meropenem added 02/20 * remains on vancomycin for MRSA bacteremia * continue supportive therapy (5) MRSA bacteremia: Code(s): R78.81 - Bacteremia; B95.62 - Methicillin resistant Staphylococcus aureus infection as the cause of diseases classified elsewhere Status: Acute Assessment and Plan: * as noted by culture data: * 1 out of 2 sets noted on 02/07 * repeat cultures to date negative * on vancomycin (6) UTI (urinary tract infection): Qualifiers: Urinary tract infection type: acute cystitis Hematuria presence: w ithout hematuria Qualified Code(s): N30.00 - Acute cystitis without hematuria Code(s): N39.0 - Urinary tract infection, site not specified Status: Acute Assessment and Plan: * admission UA (on 02/18) with 51-100 WB, 2+ LE and negative nitrates (but drawn from a [facility]) * urine culture with Val * on fluconazole (but refusing to take) (7) Pancreatitis: Code(s): K85.90 - Acute pancreatitis without necrosis or infection, unspecified Status: Acute Assessment and Plan: * incidental finding of 02/20 CT imaging: * new inflammatory change and/or fluid in the upper abdomen, suggestive of acute pancreatitis * lipase was 5561 with slow improvement * RUQ US showing no acute findings -- she is s/p cholecystectomy * benign exam and not complaining of abdominal pain * follow trend of lipase (8) DVT (deep venous thrombosis): Code(s): I82.409 - Acute embolism and thrombosis of unspecified deep veins of unspecified lower extremity Status: Acute Assessment and Plan: * dopplers of upper extremities and lower extremeties (on 02/20) noted: * negative for UEs * LEs with showing bilateral DVTs within the bilateral posterior tibial and peroneal veins. * on heparin gtt * switch to oral medication when patient taking oral medications reliably/consistently (9) Acute hypoxemic respiratory failure: Code(s): J96.01 - Acute respiratory failure with hypoxia Status: Acute Assessment and Plan: * resolved * thought to be secondary to acute CHF, pneumonia, and possibly refusal to wear CPAP * s/p diuresis with clinical improvement * weaned to room air * follow respiratory status closely given #1 (10) HTN (hypertension): Qualifiers: Hypertension type: essential hypertension Qualified Code(s): I10 - Essential (primary) hypertension Code(s): I10 - Essential (primary) hypertension Status: Chronic Assessment and Plan: * reasonable control * follow trend of hemodyamics (11) Diastolic dysfunction: Code(s): I51.89 - Other ill-defined heart diseases Status: Acute Assessment and Plan: * evidence of exacerbation earlier in hospital course * Cardiology recommendations noted * however, off lasix at this time due to #1 * follow volume status closely (12) Bipolar disorder: Qualifiers: Active/Remission status: currently active Code(s): F31.9 - Bipolar disorder, unspecified Status: Acute Assessment and Plan: * on Lamictal and sertraline * however, not taking regularly due to refusal at times * suspect may be playing a role with #3 * further intervention(?) Will continue to follow. L Subjective Date/time seen: 02/26/25 11:04 Interval history: Follow-up for acute kidney injury/acute renal failure on chronic kidney disease. Resting comfortably at the time of my visit; renal function/creatinine continues to slowly worsen although urine output noted to be better in the last 24 hours; seems to regard me a bit more than previously but non-communicative/nonverbal when seen. Exam 2 Narrative: General: somewhat ill-appearing female in NAD Heart: normal S1 and S2; no rub Lungs: coarse breath sounds Abdomen: soft, nontender, nondistended, positive bowel sounds Extremities: no cyanosis or clubbing; 1+ edema Skin: no rash Objective Data Vital Signs Vital Signs: Vital Signs Temp Pulse Resp BP Pulse Ox O2 Del Method 02/26/25 10:10 Room Air 02/26/25 09:58 68 02/26/25 08:00 62 02/26/25 05:58 98 F 75 20 135/78 95 02/26/25 04:00 72 02/26/25 00:00 77 02/25/25 21:04 90 02/25/25 21:00 90 02/25/25 21:00 Room Air 02/25/25 20:58 97.9 F 92 18 125/54 L 93 02/25/25 20:08 93 Room Air Intake/Output Intake/Output: Intake & Output 02/23/25 02/24/25 02/25/25 02/26/25 23:59 23:59 23:59 23:59 Intake Total 465.5 250 1784 2261 Output Total 375 400 150 525 Balance 90.5 -150 1634 1736 Meds/Results Medications: Active Medications Generic Name Dose Route Start Last Admin Trade Name Freq PRN Reason Stop Dose Admin Acetaminophen 650 mg 02/23/25 15:26 02/25/25 03:00 Acetaminophen 325 Mg Tablet FEED TUBE 650 mg Q4H PRN Administration Mild Pain (1-3) or Fever Artificial Tears 1 drop 02/08/25 09:32 Artificial Tears Ophth Soln 15 Ml Bottle EACH EYE 03/10/25 09:31 PRN PRN dry eye(s) Carvedilol 18.75 mg 02/23/25 21:00 02/26/25 09:58 Carvedilol 6.25 Mg Tablet FEED TUBE 18.75 mg Q12HR CARLIN Administration Dextrose 12.5 gm 02/26/25 07:21 Dextrose 50% 25 Gm/50 Ml Syringe IV PUSH PRN PRN Hypoglycemia Protocol Famotidine 20 mg 02/26/25 09:00 02/26/25 09:57 Famotidine 20 Mg Tablet FEED TUBE 20 mg Q12HR CARLIN Administration Fluconazole 100 mg 02/27/25 09:00 Fluconazole 100 Mg Tablet FEED TUBE 03/08/25 09:01 QAM CARLIN Glucagon 1 mg 02/26/25 07:21 Glucagon For Inj 1 Mg Vial IM PRN PRN Hypoglycemia Protocol Glucose 15 gm 02/26/25 07:21 Glucose Oral Gel 15 Gm Of Glucse In 37.5 Gm Tube PO PRN PRN Hypoglycemia Protocol Meropenem 500 mg in 100 mls @ 200 mls/hr 02/20/25 10:30 02/26/25 10:17 IVPB 02/26/25 21:29 Infused Q12HR CARLIN Infusion Dextrose 1,000 mls @ 100 mls/hr 02/26/25 07:21 Dextrose 5% 1,000 Ml IVPB PRN PRN Hypoglycemia Protocol Insulin Aspart 4 - 8 units 02/26/25 12:00 02/26/25 17:35 Insulin Aspart (*Bkc) 100 Units/Ml SUB-Q 4 units Q6HR CARLIN Administration Protocol Lamotrigine 200 mg 02/23/25 21:00 02/26/25 09:58 Lamotrigine 100 Mg Tablet FEED TUBE 200 mg Q12HR CARLIN Administration Levalbuterol HCl 1.25 mg 02/23/25 07:38 Levalbuterol Neb 1.25 Mg/3 Ml INHALATION Q6HRT PRN Shortness Of Breath Or Wheezing Lorazepam 1 mg 02/09/25 15:15 02/15/25 10:49 Lorazepam (*Crx) 1 Mg Tablet PO 1 mg Q8H PRN Administration Anxiety Ondansetron HCl 4 mg 02/07/25 15:41 02/16/25 12:09 Ondansetron Inj 4 Mg/2 Ml Vial IV PUSH 4 mg Q4H PRN Administration Nausea Sodium Bicarbonate 1,300 mg 02/25/25 13:00 02/26/25 17:35 Sodium Bicarbonate Tab 650 Mg Tablet FEED TUBE 1,300 mg TID CARLIN Administration Radiology Results: ITS Impressions Modified Barium Swallow 02/14/25 11:22 IMPRESSION: Mild pharyngeal dysphagia with laryngeal penetration without aspiration. Please correlate with speech pathologist findings and specific feeding recommendations. Renal Ultrasound 02/19/25 15:09 IMPRESSION: 1. Normal kidneys without hydronephrosis. Chest/Abdomen/Pelvis CT 02/20/25 15:06 Impression: Airspace consolidation groundglass opacity throughout both lungs. Correlate for interval element of pulmonary edema versus bilateral pneumonia. Increasing small bilateral pleural effusions with bibasilar atelectatic change. New inflammatory change and/or fluid in the upper abdomen, suggestive of acute pancreatitis. Correlate clinically. Chest X-Ray 02/21/25 06:02 Impression: Probable patchy mild pulmonary edema pattern versus patchy bilateral pneumonia. Correlate clinically. Small right pleural effusion. Venous Doppler Study 02/21/25 07:40 IMPRESSION: Deep venous thrombosis within the bilateral posterior tibial and peroneal veins, as detailed above. Remainder of the examination is unremarkable. Upper Quadrant Ultrasound 02/21/25 12:03 IMPRESSION: Unremarkable limited ultrasound examination of the right upper quadrant, as detailed above. Abdomen X-Ray 02/24/25 10:02 IMPRESSION: Nasogastric tube in good position and ready for immediate use. Head CT 02/25/25 07:48 Impression: Redemonstration of a focus of increased attenuation along the right frontal parietal lobe, high in the convexity, decreased in size from original examination which may be artifactual in origin. No surrounding vasogenic edema. No midline shift. If clinically able, MRI examination is suggested as follow-up. Inflammatory sinus disease. Labs Labs: Laboratory Tests 02/26/25 06:23 02/26/25 06:23 Calcium 9.3 Phosphorus 4.9 H Magnesium 2.7 H Total Bilirubin 0.4 AST 113 H ALT 32 Alkaline Phosphatase 323 H Total Creatine Kinase < 20 L Total Protein 6.0 L Albumin 2.7 L Microbiology 02/20/25 10:49 Blood Blood Culture - Final 02/20/25 11:10 Blood Blood Culture - Final
--- NOTE | 2025-02-26 11:18 | PC.NURSE ---
RN called hospitalist Beatrice to update him on status of patient's IV status. No answer.
[2025-02-26] MEDS: INSULIN ASPART (*BKC) 100 UNITS/ML SUB-Q ×3 (13:53→23:37)
--- NOTE | 2025-02-26 17:50 | P.PNIM_ITS ---
Progress Note: A&P Assessment and Plan (1) Altered mental status: Qualifiers: Altered mental status type: delirium Qualified Code(s): R41.0 - Disorientation, unspecified Code(s): R41.82 - Altered mental status, unspecified Status: Acute Assessment and Plan: Infection verses stroke versus electrolyte imbalance versus other (psych) CT head 02/07 showing no acute findings (CT head 01/11/25 showing small SDH and was sent to [facility] at that time) Psych evaluation performed and appreciate their input. Haldol prn recommended to control mood disorder PT/OT/ST NGT placed and Lamictal resumed. Mental status better since she is now getting the lamictal more regularly. Monitor for improvement. Ativan prn for agitation. (2) Epidural hematoma: Code(s): S06.4XAA - Epidural hemorrhage with loss of consciousness status unknown, initial encounter Status: Acute Assessment and Plan: CT brain 02/23 showing possible right-sided frontal lobe epidural hematoma. Could be artifact but concerning for cerebral hemorrhage given the fact that she was on heparin with supratherapeutic PTT. Spoke with [facility] (Dr Baeza) neurosurgery. He recommended repeating CT brain in 4-6 hours which showed no change. Repeat CT brain 24 hours later showing increased attenuation along the right frontal parietal lobe that has decreased in size from original examination which may be artifactual in origin. No surrounding vasogenic edema. No midline shift. Holding all anticoagulation. Consider MRI to determine if this is a true finding if family wants to continue care plan. (3) SDH (subdural hematoma): Code(s): S06.5XAA - Traumatic subdural hemorrhage with loss of consciousness status unknown, initial encounter Status: Acute Assessment and Plan: Patient presented to the ED 01/[address] head showing very small SDH along the left side of the anterior falx cerebri. She was sent to [facility] where she was monitored without intervention. CT brain 02/07 showing no acute findings. Otherwise as above (4) Sepsis: Code(s): A41.9 - Sepsis, unspecified organism Status: Acute Assessment and Plan: Possible pneumonia vs UTI CXR concerning for PNA vs edema. BCx 02/07 positive for MRSA. TTE neg for endocarditis. per cardiology if repeat B/C neg no need for QI BCx 02/09 and 02/14 negative Pulmonary team was on board Respiratory pathogen panel positive for parainfluenza 3 IV antibiotics: -- Rocephin 02/07-, vancomycin started 02/09, Flagyl 02/11- -- Cefepime started 02/13 and completed a course on 02/19 WBC elevated but stable 16-20K range until 02/20 with WBC to 29K CT chest/Abd/Pelvis 02/20 showing airspace consolidation groundglass opacity throughout both lungs. Correlate for interval element of pulmonary edema versus bilateral pneumonia. Increasing small bilateral pleural effusions with bibasilar atelectatic change. New inflammatory change and/or fluid in the upper abdomen, suggestive of acute pancreatitis. UA with budding yeast with UCx 02/18 growing 10-49K Val dubliniensis. Fluconazole added 02/19 but patient refusing BCx 02/20 NGTD UCx 02/20 Negative Meropenem added 02/20 Vancomycin for MRSA bacteremia - completed 15 days and stopped 0n 02/23 Consider pancreatitis as reason for elevated WBC. No diarrhea or evidence of colitis to suggest CDIff. Covering MRSA, pseudomonas and ESBL. Doubt viral or fungal. No fevers. WBC better again today. Continue meropenem for 7 days. Continue diflucan to complete a course (5) MRSA bacteremia: Code(s): R78.81 - Bacteremia; B95.62 - Methicillin resistant Staphylococcus aureus infection as the cause of diseases classified elsewhere Status: Acute Assessment and Plan: As above (6) Anemia: Code(s): D64.9 - Anemia, unspecified Status: Acute Assessment and Plan: Normal baseline Hgb. Hgb 12 on admission here Hgb drifted down to 10-11 and stable until dropped to 8 range on 02/23 Repeat HH stable. RN noted ?blood around her oral cavity so Pepcid started. Stool guaiac positive felt related to oral bleeding. Monitor HH. (7) Pancreatitis: Code(s): K85.90 - Acute pancreatitis without necrosis or infection, unspecified Status: Acute Assessment and Plan: Patient with incidental finding of CT Abd/Pelvis showing new inflammatory change and/or fluid in the upper abdomen, suggestive of acute pancreatitis. Lipase was 5561. Repeat level close to normal now RUQ US showing no acute findings. She is s/p cholecystectomy. TG level normal. Exam showing patient with more abd pain. NGT placed and TF started. Patient can be placed in soft restraints if needed. was agreeable (8) JERRY (acute kidney injury): Code(s): N17.9 - Acute kidney failure, unspecified Status: Acute Assessment and Plan: Cr mostly 1.2-1.5 range through December 2024. Cr 3.6 on admission and did improve to 1.3 a few days after admission but has since been climbing. IV fluids and lasix on hold I/O: +14L. Concerning for fluid overload on exam and by imaging. BNP 27K (BNP 3K in October) Renal US unremarkable Prot/Cr 0.7gm. Kasandra 18. FENa 0.2% Vanc troughs elevated and likely indicated vanc toxicity? No contrast given since admission. Nephrology following and appreciate their input. She is not eating so TF started Creatinine up to 4. Severe metabolic acidosis that is better since Na Bicarb added via NG route. Potassium okay Patient close HD. considering hospice. Continue to monitor UOP, renal function and electrolytes. (9) DVT (deep venous thrombosis): Code(s): I82.409 - Acute embolism and thrombosis of unspecified deep veins of unspecified lower extremity Status: Acute Assessment and Plan: Doppler of the LUE negative for DVT Doppler of the bilateral LE showing bilateral DVT within the bilateral posterior tibial and peroneal veins. She is high risk for propagation to above the knee Heparin gtt started but now stopped since hx of recent cerebral hemorrhage and dropping HH Monitor. Will need IVC filter if family decides to continue care plan (10) UTI (urinary tract infection): Qualifiers: Hematuria presence: without hematuria Urinary tract infection type: acute cystitis Qualified Code(s): N30.00 - Acute cystitis without hematuria Code(s): N39.0 - Urinary tract infection, site not specified Status: Acute Assessment and Plan: UA 02/18 showing 51-100 WB, 2+ LE and negative nitrates but drawn from a Castro Could be causing altered mental status but felt more psych related UCx 02/18 growing Val and fluconazole added Currently on meropenem. No evidence of fungemia. Vanco stopped 02/23. Diflucan continued UCx 02/20 negative. (11) Bipolar disorder: Qualifiers: Active/Remission status: currently active Code(s): F31.9 - Bipolar disorder, unspecified Status: Acute Assessment and Plan: Patient on Lamictal, duloxatine and sertraline but not taking regularly Duloxatine and sertraline stopped since not taking lamictal. And duloxatine contraindicated in JERRY Patient was taking lamictal intermittently. Changed to NG route Psych consulted and appreciate their input (12) HTN (hypertension): Qualifiers: Hypertension type: essential hypertension Qualified Code(s): I10 - Essential (primary) hypertension Code(s): I10 - Essential (primary) hypertension Status: Chronic Assessment and Plan: Patient's blood pressure was reviewed on 02/26 Blood pressure remains well controlled. Will continue to monitor (13) Diastolic dysfunction: Code(s): I51.89 - Other ill-defined heart diseases Status: Acute Assessment and Plan: Acute on chronic HFpEF dc 'd lasix due to JERRY cardiology team on board. Resume diuretics when able (14) Obstructive sleep apnea on CPAP: Code(s): G47.33 - Obstructive sleep apnea (adult) (pediatric); Z99.89 - Dependence on other enabling machines and devices Status: Acute Assessment and Plan: Does not appear to be on home CPAP (15) NSTEMI (non-ST elevated myocardial infarction): Code(s): I21.4 - Non-ST elevation (NSTEMI) myocardial infarction Status: Acute Assessment and Plan: Troponin: 0.287-0.364 Likely demand ischemia monitor for now Cardiology team was following (16) Acute hypoxemic respiratory failure: Code(s): J96.01 - Acute respiratory failure with hypoxia Status: Acute Assessment and Plan: Patieint with SOB and hypoxia 02/12 up to 4L. [place] related to CHF with her weight gain, imaging findings and BNP 28K. Patient received Lasix 40mg on 02/12 in the evening. There is no evidence of hypercarbic respiratory failure with ABG on 4 L 7.45/32/57. Weaned to room air. Follow (17) Diarrhea: Code(s): R19.7 - Diarrhea, unspecified Status: Acute Assessment and Plan: Likely cause of acute dehydration and hypokalemia Negative for C diff. Stool culture negative. Imodium once on 02/12. Resolved (18) Acute hypokalemia: Code(s): E87.6 - Hypokalemia Status: Acute Assessment and Plan: Potassium was replaced. Levels normalized Continue monitoring Plan Hyperglycemia - A1c 4.7%. Start AccuCheks covering with sliding scale. Hypoglycemia protocol available as needed. DVT prophylaxis - off heaprin due to hx of SDH and anemia. Will need IVC filter if family decides to continue full care. Code status - full Subjective Date/time seen: 02/26/25 17:50 Interval history: 69yo female history of bipolar 1, hypertension, brain tumor, iron deficiency anemia, CKD and SIMEON presents to the hospital with altered mental status from a [place] [facility]. More engaged today but essentially nonverbal. Slept well. Review of Systems Review of Systems: ROS unobtainable: Yes unobtainable due to mental status Exam Narrative: AF 98.0 105/56 65 18 95% ra Gen - NARD HEENT - NGT secured. darkish material noted oral cavity with improvement. Chest - clear anteriorly CV - RRR S1/S2. Tele showing PVCs Abd - Soft, ND, mild difuse abdomen pain - Castro secured draining clear yellow urine Ext - UE edema improved Neuro - regards examiner. Follows commands. Responds verbally but mumbled speech. Psych - difficult to assess Skin - Warm and dry Objective Data Vital Signs Vital Signs: Vital Signs - 24 hr 02/25/25 20:08 02/25/25 20:58 02/25/25 21:00 Temperature 97.9 F Pulse Rate 92 Respiratory Rate 18 Blood Pressure 125/54 L Pulse Oximetry 93 93 Oxygen Delivery Room Air Room Air 02/25/25 21:00 02/25/25 21:04 02/26/25 00:00 Temperature Pulse Rate 90 90 77 Respiratory Rate Blood Pressure Pulse Oximetry Oxygen Delivery 02/26/25 04:00 02/26/25 05:58 02/26/25 08:00 Temperature 98 F Pulse Rate 72 75 62 Respiratory Rate 20 Blood Pressure 135/78 Pulse Oximetry 95 Oxygen Delivery 02/26/25 09:58 02/26/25 10:10 02/26/25 12:00 Temperature Pulse Rate 68 59 L Respiratory Rate Blood Pressure Pulse Oximetry Oxygen Delivery Room Air 02/26/25 14:00 02/26/25 16:00 Temperature 98.0 F Pulse Rate 65 65 Respiratory Rate 18 Blood Pressure 105/56 L Pulse Oximetry 95 Oxygen Delivery Intake/Output Intake/Output: Intake & Output 02/23/25 02/24/25 02/25/25 02/26/25 23:59 23:59 23:59 23:59 Intake Total 465.5 250 1784 2261 Output Total 375 400 150 375 Balance 90.5 -150 1634 1886 Meds/Results Medications: Active Medications Generic Name Dose Route Start Last Admin Trade Name Freq PRN Reason Stop Dose Admin Acetaminophen 650 mg 02/23/25 15:26 02/25/25 03:00 Acetaminophen 325 Mg Tablet FEED TUBE 650 mg Q4H PRN Administration Mild Pain (1-3) or Fever Artificial Tears 1 drop 02/08/25 09:32 Artificial Tears Ophth Soln 15 Ml Bottle EACH EYE 03/10/25 09:31 PRN PRN dry eye(s) Carvedilol 18.75 mg 02/23/25 21:00 02/26/25 09:58 Carvedilol 6.25 Mg Tablet FEED TUBE 18.75 mg Q12HR CARLIN Administration Dextrose 12.5 gm 02/26/25 07:21 Dextrose 50% 25 Gm/50 Ml Syringe IV PUSH PRN PRN Hypoglycemia Protocol Famotidine 20 mg 02/26/25 09:00 02/26/25 09:57 Famotidine 20 Mg Tablet FEED TUBE 20 mg Q12HR CARLIN Administration Fluconazole 100 mg 02/27/25 09:00 Fluconazole 100 Mg Tablet FEED TUBE 03/08/25 09:01 QAM CARLIN Glucagon 1 mg 02/26/25 07:21 Glucagon For Inj 1 Mg Vial IM PRN PRN Hypoglycemia Protocol Glucose 15 gm 02/26/25 07:21 Glucose Oral Gel 15 Gm Of Glucse In 37.5 Gm Tube PO PRN PRN Hypoglycemia Protocol Meropenem 500 mg in 100 mls @ 200 mls/hr 02/20/25 10:30 02/26/25 10:17 IVPB 02/26/25 21:29 Infused Q12HR CARLIN Infusion Dextrose 1,000 mls @ 100 mls/hr 02/26/25 07:21 Dextrose 5% 1,000 Ml IVPB PRN PRN Hypoglycemia Protocol Insulin Aspart 4 - 8 units 02/26/25 12:00 02/26/25 17:35 Insulin Aspart (*Bkc) 100 Units/Ml SUB-Q 4 units Q6HR CARLIN Administration Protocol Lamotrigine 200 mg 02/23/25 21:00 02/26/25 09:58 Lamotrigine 100 Mg Tablet FEED TUBE 200 mg Q12HR CARLIN Administration Levalbuterol HCl 1.25 mg 02/23/25 07:38 Levalbuterol Neb 1.25 Mg/3 Ml INHALATION Q6HRT PRN Shortness Of Breath Or Wheezing Lorazepam 1 mg 02/09/25 15:15 02/15/25 10:49 Lorazepam (*Crx) 1 Mg Tablet PO 1 mg Q8H PRN Administration Anxiety Ondansetron HCl 4 mg 02/07/25 15:41 02/16/25 12:09 Ondansetron Inj 4 Mg/2 Ml Vial IV PUSH 4 mg Q4H PRN Administration Nausea Sodium Bicarbonate 1,300 mg 02/25/25 13:00 02/26/25 17:35 Sodium Bicarbonate Tab 650 Mg Tablet FEED TUBE 1,300 mg TID CARLIN Administration Radiology Results: ITS Impressions Modified Barium Swallow 02/14/25 11:22 IMPRESSION: Mild pharyngeal dysphagia with laryngeal penetration without aspiration. Please correlate with speech pathologist findings and specific feed ing recommendations. Renal Ultrasound 02/19/25 15:09 IMPRESSION: 1. Normal kidneys without hydronephrosis. Chest/Abdomen/Pelvis CT 02/20/25 15:06 Impression: Airspace consolidation groundglass opacity throughout both lungs. Correlate for interval element of pulmonary edema versus bilateral pneumonia. Increasing small bilateral pleural effusions with bibasilar atelectatic change. New inflammatory change and/or fluid in the upper abdomen, suggestive of acute pancreatitis. Correlate clinically. Chest X-Ray 02/21/25 06:02 Impression: Probable patchy mild pulmonary edema pattern versus patchy bilateral pneumonia. Correlate clinically. Small right pleural effusion. Venous Doppler Study 02/21/25 07:40 IMPRESSION: Deep venous thrombosis within the bilateral posterior tibial and peroneal veins, as detailed above. Remainder of the examination is unremarkable. Upper Quadrant Ultrasound 02/21/25 12:03 IMPRESSION: Unremarkable limited ultrasound examination of the right upper quadrant, as detailed above. Abdomen X-Ray 02/24/25 10:02 IMPRESSION: Nasogastric tube in good position and ready for immediate use. Head CT 02/25/25 07:48 Impression: Redemonstration of a focus of increased attenuation along the right frontal parietal lobe, high in the convexity, decreased in size from original examination which may be artifactual in origin. No surrounding vasogenic edema. No midline shift. If clinically able, MRI examination is suggested as follow-up. Inflammatory sinus disease. Labs Labs: Laboratory Results - last 24 hr 02/26/25 02/26/25 02/26/25 06:07 06:23 13:15 WBC 22.0 H RBC 2.83 L Hgb 8.8 L Hct 28.5 L MCV 100.7 H MCH 31.1 MCHC 30.9 L RDW 21.2 H Plt Count 393 H MPV 9.6 Immature Gran % (Auto) 11.2 H Neut % (Auto) 68.6 Lymph % (Auto) 10.8 L [place] % (Auto) 8.5 Eos % (Auto) 0.1 Baso % (Auto) 0.8 Lymph # (Auto) 2.38 [place] # (Auto) 1.9 H Eos # (Auto) 0.0 Baso # (Auto) 0.2 H Abs Immat Gran (auto) 2.46 H Absolute Neuts (auto) 15.1 H Absolute Nucleated RBC 0.310 H Band Neutrophils % Not Reportable Nucleated RBC % 1.4 H Platelet Estimate Slightly increased Basophilic Stippling 1+ Anisocytosis 2+ Ovalocytes 1+ Schistocytes None seen Sodium 147 H Potassium 3.7 Chloride 116 H Carbon Dioxide 17 L Anion Gap 14 H BUN 78 H Creatinine 4.09 H Estim Creat Clear Calc 15 Estimated GFR 11 L Glucose 275 H POC Capillary Glucose 287 H Hemoglobin A1c 4.7 Calcium 9.3 Phosphorus 4.9 H Magnesium 2.7 H Total Bilirubin 0.4 AST 113 H ALT 32 Alkaline Phosphatase 323 H Total Creatine Kinase < 20 L Total Protein 6.0 L Albumin 2.7 L 02/26/25 17:21 WBC RBC Hgb Hct MCV MCH MCHC RDW Plt Count MPV Immature Gran % (Auto) Neut % (Auto) Lymph % (Auto) [place] % (Auto) Eos % (Auto) Baso % (Auto) Lymph # (Auto) [place] # (Auto) Eos # (Auto) Baso # (Auto) Abs Immat Gran (auto) Absolute Neuts (auto) Absolute Nucleated RBC Band Neutrophils % Nucleated RBC % Platelet Estimate Basophilic Stippling Anisocytosis Ovalocytes Schistocytes Sodium Potassium Chloride Carbon Dioxide Anion Gap BUN Creatinine Estim Creat Clear Calc Estimated GFR Glucose POC Capillary Glucose 221 H Hemoglobin A1c Calcium Phosphorus Magnesium Total Bilirubin AST ALT Alkaline Phosphatase Total Creatine Kinase Total Protein Albumin
[2025-02-27 04:22] VITALS: BP 123/57; PULSE 75; RESP 18; TEMP 36.3; O2SAT 95
[2025-02-27] MEDS: INSULIN ASPART (*BKC) 100 UNITS/ML SUB-Q ×4 (06:26→23:49)
[2025-02-27 07:54] LABS: Alanine Aminotransferase 107 U/L (6-35); Albumin Level 2.2 g/dL (3.5-5.1); Alkaline Phosphatase 440 U/L (38-126); Anion Gap 14 mmol/L (4-12); Aspartate Amino Transferase 392 U/L (14-36); Bilirubin,Total 0.6 mg/dL (0.2-1.3); Blood Urea Nitrogen 86 mg/dL (7-17); Calcium 9.2 mg/dL (8.4-10.2); Carbon Dioxide 14 mmol/L (22-30); Chloride 120 mmol/L (98-107); Estimated CRCL calculation 15 ml/min; Estimated Glomerular Filt Rate 11; Glucose 260 mg/dL (65-110); Magnesium 2.9 mg/dL (1.6-2.3); Potassium 3.5 mmol/L (3.4-5.0); Sodium 148 mmol/L (137-145); Total Protein 5.1 g/dL (6.3-8.2)
[2025-02-27 08:23] LABS: Hematocrit 26.1 % (37.0-47.0); Hemoglobin 8.2 g/dL (12.0-15.0); Mean Corpuscular HGB Conc 31.4 g/dl (32-36); Mean Corpuscular Hemoglobin 31.3 pg (26-34); Mean Corpuscular Volume 99.6 fl (80-100); Platelet Count Result 306 k/mm3 (150-375); Red Blood Count 2.62 M/mm3 (4.2-5.4); White Blood Count 19.0 K/mm3 (4.5-10.0)
[2025-02-27 08:45] LABS: Total Cells Counted 100
[2025-02-27 08:46] LABS: Anisocytosis 2+; Band Neutrophils Percent 6 % (0-6); Hypochromasia 2+; Lymphocytes Absolute Manual 1.71 K/mm3 (1.1-4.5); Lymphocytes Percent Manual 9 % (18-44); Monocytes Absolute Manual 0.95 K/mm3 (0.1-0.90); Monocytes Percent Manual 5 % (3-9); Neutrophils Absolute Manual 16.34 K/mm3 (1.3-6.7); Neutrophils Percent Manual 80 % (46-73); Polychromasia 1+; Schistocytes None Seen
[2025-02-27] MEDS: FAMOTIDINE 20 MG TABLET FEED TUBE ×2 (09:47→20:31)
[2025-02-27 09:48] VITALS: PULSE 65
[2025-02-27] MEDS: SODIUM BICARBONATE TAB 650 MG TABLET 1300 MG FEED TUBE ×3 (09:48→17:27)
--- NOTE | 2025-02-27 10:59 | PCNFU ---
Nutrition Follow-Up Complete: Inadequate oral intake related to loss of appetite, mouth sores as evidenced by weight loss 21%/5 months Goal: PO intakes at least 50% meals and supplements Patient is not meeting goal at this time. New goal: meet estimated nutritional needs. Pt current nutrition is Nepro at 45 ml/hr. Last recorded weight is 103.7 kg, up from 97.8 kg on admit Bowel Motility: +BM reported 02/27 Labs Reviewed:BUN 86, Cr 3.97,Glu 260, Mg 2.9, Na 148 Meds Noted: Coreg, NovoLog Skin: WNL Additional Notes: Patient current with NGT feedings of Nepro at 60 ml/hr. Spoke with hospitalist today regarding tube feeding rate. Recommend tube feeding change to 45 ml/hr to better meet caloric needs. Flush increased from 30 to 120 ml q 4 hours 09/24 to Na 148 today. Total Nutrition: 1782 kcal/80 gm protein/720 ml water. Agree with diet orders. Monitoring intakes, weights, labs, supplement tolerance, plan of care every Wednesday and Wednesday.
--- NOTE | 2025-02-27 11:13 | P.PNNP_ITS ---
Progress Note: A&P Assessment and Plan (1) Acute kidney injury: Code(s): N17.9 - Acute kidney failure, unspecified Status: Acute Assessment and Plan: * continues to fluctuate * as noted on admission (creatinine 3.63mg/dl) * interestingly, associated with significant hypokalemia * transiently improved to 1.27mg/dl (on 02/12) * then started to progressively deteriorate again on 02/13 * suspect multifactorial etiology: * prerenal factors (poor oral intake) * infection/sepsis (bacteremia + UTI) * diuretic use * antibiotics (vancomycin toxicity?) * other? * evaluation to date noted: * normal renal ultrasound * urine electrolytes pre-renal * urine eosinophils negative * moderate proteinuria (~ 700mg) * CPK low * off IVFs due to concern of volume overload * significant acidosis noted as well (but refusing to take sodium bicarbonate tabs) * follow repeat labs and UOP (2) Stage 3 chronic kidney disease: Code(s): N18.30 - Chronic kidney disease, stage 3 unspecified Status: Chronic Assessment and Plan: * baseline creatinine runs ~ 1.0 - 1.5mg/dl * presumably due to hypertension, SIMEON, obesity, and age-related change (3) Altered mental status: Qualifiers: Altered mental status type: delirium Qualified Code(s): R41.0 - Disorientation, unspecified Code(s): R41.82 - Altered mental status, unspecified Status: Acute Assessment and Plan: * etiology not clear * possible issues include: * infection (bacteremia + fungal UTI) * previous hypoxia * previous SDH * electrolyte imbalance (low K+ but corrected) * psychiatric (known bipolar disorder) * CT of head without any acute findings * holding sedating medications * ongoing PT/OT/ST * follow trend of mentation (4) Sepsis: Code(s): A41.9 - Sepsis, unspecified organism Status: Acute Assessment and Plan: * due to several issues: * blood culture (1 set out of 2) with MRSA from 02/07 * possible pneumonia imaging (completed course of antibiotics) * fungal UTI [UA with budding yeast; urine culture with Val dubliniensis -- (fluconazole added 02/19 but patient refusing/not taking consistently] * repeat blood cultures (02/09 + 02/14) with no growth * respiratory pathogen panel positive for parainfluenza 3 * however worsening leukocytosis noted on 02/20 * CT C/A/P (on 02/20): showing airspace consolidation ground glass opacity throughout both lungs (correlate for interval element of pulmonary edema versus bilateral pneumonia); increasing small bilateral pleural effusions with bibasilar atelectatic change; new inflammatory change and/or fluid in the upper abdomen, suggestive of acute pancreatitis. * repeat blood cultures (02/20) with now growth to date * repeat urine culture (02/20) with no growth * meropenem added 02/20 * remains on vancomycin for MRSA bacteremia * continue supportive therapy (5) MRSA bacteremia: Code(s): R78.81 - Bacteremia; B95.62 - Methicillin resistant Staphylococcus aureus infection as the cause of diseases classified elsewhere Status: Acute Assessment and Plan: * as noted by culture data: * 1 out of 2 sets noted on 02/07 * repeat cultures to date negative * on vancomycin (6) UTI (urinary tract infection): Qualifiers: Urinary tract infection type: acute cystitis Hematuria presence: w ithout hematuria Qualified Code(s): N30.00 - Acute cystitis without hematuria Code(s): N39.0 - Urinary tract infection, site not specified Status: Acute Assessment and Plan: * admission UA (on 02/18) with 51-100 WB, 2+ LE and negative nitrates (but drawn from a [facility]) * urine culture with Val * on fluconazole (but refusing to take) (7) Pancreatitis: Code(s): K85.90 - Acute pancreatitis without necrosis or infection, unspecified Status: Acute Assessment and Plan: * incidental finding of 02/20 CT imaging: * new inflammatory change and/or fluid in the upper abdomen, suggestive of acute pancreatitis * lipase was 5561 with slow improvement * RUQ US showing no acute findings -- she is s/p cholecystectomy * benign exam and not complaining of abdominal pain * follow trend of lipase (8) DVT (deep venous thrombosis): Code(s): I82.409 - Acute embolism and thrombosis of unspecified deep veins of unspecified lower extremity Status: Acute Assessment and Plan: * dopplers of upper extremities and lower extremeties (on 02/20) noted: * negative for UEs * LEs with showing bilateral DVTs within the bilateral posterior tibial and peroneal veins. * on heparin gtt * switch to oral medication when patient taking oral medications reliably/consistently (9) Acute hypoxemic respiratory failure: Code(s): J96.01 - Acute respiratory failure with hypoxia Status: Acute Assessment and Plan: * resolved * thought to be secondary to acute CHF, pneumonia, and possibly refusal to wear CPAP * s/p diuresis with clinical improvement * weaned to room air * follow respiratory status closely given #1 (10) HTN (hypertension): Qualifiers: Hypertension type: essential hypertension Qualified Code(s): I10 - Essential (primary) hypertension Code(s): I10 - Essential (primary) hypertension Status: Chronic Assessment and Plan: * reasonable control * follow trend of hemodyamics (11) Diastolic dysfunction: Code(s): I51.89 - Other ill-defined heart diseases Status: Acute Assessment and Plan: * evidence of exacerbation earlier in hospital course * Cardiology recommendations noted * however, off lasix at this time due to #1 * follow volume status closely (12) Bipolar disorder: Qualifiers: Active/Remission status: currently active Code(s): F31.9 - Bipolar disorder, unspecified Status: Acute Assessment and Plan: * on Lamictal and sertraline * however, not taking regularly due to refusal at times * suspect may be playing a role with #3 * further intervention(?) Will continue to follow. L Subjective Date/time seen: 02/27/25 11:13 Interval history: Follow-up for acute kidney injury/acute renal failure on chronic kidney disease. Renal function/creatinine with some noted improvement by trend of labs in the last 24 hours with improvement in urine output noted as well but acidosis worse; mentation seems better as she responded to some of questions but still appears confused; no acute complaints voiced when seen. Exam 2 Narrative: General: somewhat ill-appearing female in NAD Heart: normal S1 and S2; no rub Lungs: coarse breath sounds Abdomen: soft, nontender, nondistended, positive bowel sounds Extremities: no cyanosis or clubbing; 1+ edema Skin: no nodules Objective Data Vital Signs Vital Signs: Vital Signs Temp Pulse Resp BP Pulse Ox O2 Del Method 02/27/25 09:48 65 02/27/25 09:30 Room Air 02/27/25 04:22 97.4 F L 75 18 123/57 L 95 02/26/25 22:01 71 91 02/26/25 21:35 97.9 F 92 18 134/48 L 94 02/26/25 20:00 91 Room Air Intake/Output Intake/Output: Intake & Output 02/24/25 02/25/25 02/26/25 02/27/25 23:59 23:59 23:59 23:59 Intake Total 250 1784 2361 1189 Output Total 400 150 525 425 Balance -150 1634 1836 764 Meds/Results Medications: Active Medications Generic Name Dose Route Start Last Admin Trade Name Freq PRN Reason Stop Dose Admin Acetaminophen 650 mg 02/23/25 15:26 02/25/25 03:00 Acetaminophen 325 Mg Tablet FEED TUBE 650 mg Q4H PRN Administration Mild Pain (1-3) or Fever Artificial Tears 1 drop 02/08/25 09:32 Artificial Tears Ophth Soln 15 Ml Bottle EACH EYE 03/10/25 09:31 PRN PRN dry eye(s) Carvedilol 18.75 mg 02/23/25 21:00 02/27/25 09:48 Carvedilol 6.25 Mg Tablet FEED TUBE 18.75 mg Q12HR CARLIN Administration Dextrose 12.5 gm 02/26/25 07:21 Dextrose 50% 25 Gm/50 Ml Syringe IV PUSH PRN PRN Hypoglycemia Protocol Famotidine 20 mg 02/26/25 09:00 02/27/25 09:47 Famotidine 20 Mg Tablet FEED TUBE 20 mg Q12HR CARLIN Administration Fluconazole 100 mg 02/27/25 09:00 Fluconazole 100 Mg Tablet FEED TUBE QAM CARLIN Glucagon 1 mg 02/26/25 07:21 Glucagon For Inj 1 Mg Vial IM PRN PRN Hypoglycemia Protocol Glucose 15 gm 02/26/25 07:21 Glucose Oral Gel 15 Gm Of Glucse In 37.5 Gm Tube PO PRN PRN Hypoglycemia Protocol Dextrose 1,000 mls @ 100 mls/hr 02/26/25 07:21 Dextrose 5% 1,000 Ml IVPB PRN PRN Hypoglycemia Protocol Insulin Aspart 4 - 8 units 02/26/25 12:00 02/27/25 17:36 Insulin Aspart (*Bkc) 100 Units/Ml SUB-Q 4 units Q6HR CARLIN Administration Protocol Lamotrigine 200 mg 02/23/25 21:00 02/27/25 09:47 Lamotrigine 100 Mg Tablet FEED TUBE 200 mg Q12HR CARLIN Administration Levalbuterol HCl 1.25 mg 02/23/25 07:38 Levalbuterol Neb 1.25 Mg/3 Ml INHALATION Q6HRT PRN Shortness Of Breath Or Wheezing Lorazepam 1 mg 02/09/25 15:15 02/15/25 10:49 Lorazepam (*Crx) 1 Mg Tablet PO 1 mg Q8H PRN Administration Anxiety Ondansetron HCl 4 mg 02/07/25 15:41 02/16/25 12:09 Ondansetron Inj 4 Mg/2 Ml Vial IV PUSH 4 mg Q4H PRN Administration Nausea Sodium Bicarbonate 1,300 mg 02/25/25 13:00 02/27/25 17:27 Sodium Bicarbonate Tab 650 Mg Tablet FEED TUBE 1,300 mg TID CARLIN Administration Radiology Results: ITS Impressions Modified Barium Swallow 02/14/25 11:22 IMPRESSION: Mild pharyngeal dysphagia with laryngeal penetration without aspiration. Please correlate with speech pathologist findings and specific feeding recommendations. Renal Ultrasound 02/19/25 15:09 IMPRESSION: 1. Normal kidneys without hydronephrosis. Chest/Abdomen/Pelvis CT 02/20/25 15:06 Impression: Airspace consolidation groundglass opacity throughout both lungs. Correlate for interval element of pulmonary edema versus bilateral pneumonia. Increasing small bilateral pleural effusions with bibasilar atelectatic change. New inflammatory change and/or fluid in the upper abdomen, suggestive of acute pancreatitis. Correlate clinically. Chest X-Ray 02/21/25 06:02 Impression: Probable patchy mild pulmonary edema pattern versus patchy bilateral pneumonia. Correlate clinically. Small right pleural effusion. Venous Doppler Study 02/21/25 07:40 IMPRESSION: Deep venous thrombosis within the bilateral posterior tibial and peroneal veins, as detailed above. Remainder of the examination is unremarkable. Upper Quadrant Ultrasound 02/21/25 12:03 IMPRESSION: Unremarkable limited ultrasound examination of the right upper quadrant, as detailed above. Abdomen X-Ray 02/24/25 10:02 IMPRESSION: Nasogastric tube in good position and ready for immediate use. Head CT 02/25/25 07:48 Impression: Redemonstration of a focus of increased attenuation along the right frontal parietal lobe, high in the convexity, decreased in size from original examination which may be artifactual in origin. No surrounding vasogenic edema. No midline shift. If clinically able, MRI examination is suggested as follow-up. Inflammatory sinus disease. Labs Labs: Laboratory Tests 02/27/25 08:09 02/27/25 07:29 Calcium 9.2 Phosphorus 4.7 H Magnesium 2.9 H Total Bilirubin 0.6 AST 392 H ALT 107 H Alkaline Phosphatase 440 H Total Protein 5.1 L Albumin 2.2 L
[2025-02-27 14:00] VITALS: BP 93/46; PULSE 67; RESP 20; TEMP 36.3; O2SAT 100
--- NOTE | 2025-02-27 14:36 | P.PNIM_ITS ---
Progress Note: A&P Assessment and Plan (1) Altered mental status: Qualifiers: Altered mental status type: delirium Qualified Code(s): R41.0 - Disorientation, unspecified Code(s): R41.82 - Altered mental status, unspecified Status: Acute Assessment and Plan: Infection verses stroke versus electrolyte imbalance versus other (psych) CT head 02/07 showing no acute findings (CT head 01/11/25 showing small SDH and was sent to [facility] at that time) Psych evaluation performed and appreciate their input. Haldol prn recommended to control mood disorder PT/OT/ST NGT placed and Lamictal resumed. Mental status much better felt related to her getting her lamictal more regularly. Monitor for improvement. Ativan prn for agitation. Speech to see again to evaluate her swallowing. (2) Epidural hematoma: Code(s): S06.4XAA - Epidural hemorrhage with loss of consciousness status unknown, initial encounter Status: Acute Assessment and Plan: CT brain 02/23 showing possible right-sided frontal lobe epidural hematoma. Could be artifact but concerning for cerebral hemorrhage given the fact that she was on heparin with supratherapeutic PTT. Spoke with [facility] (Dr Baeza) neurosurgery. He recommended repeating CT brain in 4-6 hours which showed no change. Repeat CT brain 24 hours later showing increased attenuation along the right frontal parietal lobe that has decreased in size from original examination which may be artifactual in origin. No surrounding vasogenic edema. No midline shift. Holding all anticoagulation. Consider MRI to determine if this is a true finding if family wants to continue care plan. Family is stil considering moving to comfort measures. (3) SDH (subdural hematoma): Code(s): S06.5XAA - Traumatic subdural hemorrhage with loss of consciousness status unknown, initial encounter Status: Acute Assessment and Plan: Patient presented to the ED 01/[address] head showing very small SDH along the left side of the anterior falx cerebri. She was sent to [facility] where she was monitored without intervention. CT brain 02/07 showing no acute findings. Otherwise as above (4) Sepsis: Code(s): A41.9 - Sepsis, unspecified organism Status: Acute Assessment and Plan: Possible pneumonia vs UTI CXR concerning for PNA vs edema. BCx 02/07 positive for MRSA. TTE neg for endocarditis. per cardiology if repeat B/C neg no need for QI BCx 02/09 and 02/14 negative Pulmonary team was on board Respiratory pathogen panel positive for parainfluenza 3 IV antibiotics: -- Rocephin 02/07-, vancomycin started 02/09, Flagyl 02/11- -- Cefepime started 02/13 and completed a course on 02/19 WBC elevated but stable 16-20K range until 02/20 with WBC to 29K CT chest/Abd/Pelvis 02/20 showing airspace consolidation groundglass opacity throughout both lungs. Correlate for interval element of pulmonary edema versus bilateral pneumonia. Increasing small bilateral pleural effusions with bibasilar atelectatic change. New inflammatory change and/or fluid in the upper abdomen, suggestive of acute pancreatitis. UA with budding yeast with UCx 02/18 growing 10-49K Val dubliniensis. Fluconazole added 02/19 but patient refusing BCx 02/20 NGTD UCx 02/20 Negative Meropenem added 02/20 Vancomycin for MRSA bacteremia - completed 15 days and stopped 0n 02/23 Consider pancreatitis as reason for elevated WBC. No diarrhea or evidence of colitis to suggest CDIff. Covering MRSA, pseudomonas and ESBL. Doubt viral or fungal. No fevers. WBC better again today. Completed meropenem for 7 days. Holding diflucan due to rising LFTs (5) MRSA bacteremia: Code(s): R78.81 - Bacteremia; B95.62 - Methicillin resistant Staphylococcus aureus infection as the cause of diseases classified elsewhere Status: Acute Assessment and Plan: As above (6) Anemia: Code(s): D64.9 - Anemia, unspecified Status: Acute Assessment and Plan: Normal baseline Hgb. Hgb 12 on admission here Hgb drifted down to 10-11 and stable until dropped to 8 range on 02/23 Repeat HH stable. RN noted ?blood around her oral cavity so Pepcid started. Stool guaiac positive felt related to oral bleeding. Monitor HH. (7) Pancreatitis: Code(s): K85.90 - Acute pancreatitis without necrosis or infection, unspecified Status: Acute Assessment and Plan: Patient with incidental finding of CT Abd/Pelvis showing new inflammatory change and/or fluid in the upper abdomen, suggestive of acute pancreatitis. Lipase was 5561. Repeat level close to normal now RUQ US showing no acute findings. She is s/p cholecystectomy. TG level normal. Exam showing patient with more abd pain. NGT placed and TF started. Patient can be placed in soft restraints if needed. was agreeable Now that she is more awake, have speech re-evaluate to see if she can transition to oral feeding (8) JERRY (acute kidney injury): Code(s): N17.9 - Acute kidney failure, unspecified Status: Acute Assessment and Plan: Cr mostly 1.2-1.5 range through December 2024. Cr 3.6 on admission and did improve to 1.3 a few days after admission but has since been climbing. IV fluids and lasix on hold I/O: +14L. Concerning for fluid overload on exam and by imaging. BNP 27K (BNP 3K in October) Renal US unremarkable Prot/Cr 0.7gm. Kasandra 18. FENa 0.2% Vanc troughs elevated and likely indicated vanc toxicity? No contrast given since admission. Nephrology following and appreciate their input. She is not eating so TF started Creatinine up to 4. Severe metabolic acidosis that is worse today. Potassium okay Patient close HD. considering hospice. Continue to monitor UOP, renal function and electrolytes. (9) DVT (deep venous thrombosis): Code(s): I82.409 - Acute embolism and thrombosis of unspecified deep veins of unspecified lower extremity Status: Acute Assessment and Plan: Doppler of the LUE negative for DVT Doppler of the bilateral LE showing bilateral DVT within the bilateral posterior tibial and peroneal veins. She is high risk for propagation to above the knee Heparin gtt started but now stopped since hx of recent cerebral hemorrhage and dropping HH Monitor. Will need IVC filter if family decides to continue care plan (10) UTI (urinary tract infection): Qualifiers: Hematuria presence: without hematuria Urinary tract infection type: acute cystitis Qualified Code(s): N30.00 - Acute cystitis without hematuria Code(s): N39.0 - Urinary tract infection, site not specified Status: Acute Assessment and Plan: UA 02/18 showing 51-100 WB, 2+ LE and negative nitrates but drawn from a Castro Could be causing altered mental status but felt more psych related UCx 02/18 growing Val and fluconazole added Currently on meropenem. No evidence of fungemia. Vanco stopped 02/23. Diflucan continued but hold now since LFTs worse UCx 02/20 negative. (11) Bipolar disorder: Qualifiers: Active/Remission status: currently active Code(s): F31.9 - Bipolar disorder, unspecified Status: Acute Assessment and Plan: Patient on Lamictal, duloxatine and sertraline but not taking regularly Duloxatine and sertraline stopped since not taking lamictal. And duloxatine contraindicated in JERRY Patient was taking lamictal intermittently. Changed to NG route Psych consulted and appreciate their input Resume sertraline at lower dose once she is better. (12) HTN (hypertension): Qualifiers: Hypertension type: essential hypertension Qualified Code(s): I10 - Essential (primary) hypertension Code(s): I10 - Essential (primary) hypertension Status: Chronic Assessment and Plan: Patient's blood pressure was reviewed on 02/27 Blood pressure remains well controlled. Will continue to monitor (13) Diastolic dysfunction: Code(s): I51.89 - Other ill-defined heart diseases Status: Acute Assessment and Plan: Acute on chronic HFpEF dc 'd lasix due to JERRY cardiology team on board. Resume diuretics when able (14) Obstructive sleep apnea on CPAP: Code(s): G47.33 - Obstructive sleep apnea (adult) (pediatric); Z99.89 - Dependence on other enabling machines and devices Status: Acute Assessment and Plan: Does not appear to be on home CPAP (15) NSTEMI (non-ST elevated myocardial infarction): Code(s): I21.4 - Non-ST elevation (NSTEMI) myocardial infarction Status: Acute Assessment and Plan: Troponin: 0.287-0.364 Likely demand ischemia monitor for now Cardiology team was following (16) Acute hypoxemic respiratory failure: Code(s): J96.01 - Acute respiratory failure with hypoxia Status: Acute Assessment and Plan: Patieint with SOB and hypoxia 02/12 up to 4L. [place] related to CHF with her weight gain, imaging findings and BNP 28K. Patient received Lasix 40mg on 02/12 in the evening. There is no evidence of hypercarbic respiratory failure with ABG on 4 L 7.45/32/57. Weaned to room air. Follow (17) Diarrhea: Code(s): R19.7 - Diarrhea, unspecified Status: Acute Assessment and Plan: Likely cause of acute dehydration and hypokalemia Negative for C diff. Stool culture negative. Imodium once on 02/12. Resolved (18) Acute hypokalemia: Code(s): E87.6 - Hypokalemia Status: Acute Assessment and Plan: Potassium was replaced. Levels normalized Continue monitoring Plan Hyperglycemia - A1c 4.7%. AccuCheks covering with sliding scale. Hypoglycemia protocol available as needed. DVT prophylaxis - off heaprin due to hx of SDH and anemia. Will need IVC filter if family decides to continue full care. Code status - full Subjective Date/time seen: 02/27/25 14:36 Interval history: 69yo female history of bipolar 1, hypertension, brain tumor, iron deficiency anemia, CKD and SIMEON presents to the hospital with altered mental status from a detention. Feeling 'just fine'. Slept well. Says 'yes' when asked review of system questions. Alert but confused. Review of Systems Review of Systems: ROS unobtainable: Yes unobtainable due to mental status Exam Narrative: AF 97.4 123/57 65 18 95% ra Gen - NARD HEENT - NGT secured. Chest - clear anteriorly CV - RRR S1/S2 Abd - Soft, ND, mild diffuse tenderness without guarding - Castro secured draining clear yellow urine Ext - UE edema improved; mild pitting but mostly nonpitting LE edema Neuro - Responds to questions now. more alert but still confused. Oreinted to location only. Psych - difficult to assess Skin - Warm and dry Objective Data Vital Signs Vital Signs: Vital Signs - 24 hr 02/26/25 16:00 02/26/25 20:00 02/26/25 21:35 Temperature 97.9 F Pulse Rate 65 92 Respiratory Rate 18 Blood Pressure 134/48 L Pulse Oximetry 91 94 Oxygen Delivery Room Air 02/26/25 22:01 02/27/25 04:22 02/27/25 09:30 Temperature 97.4 F L Pulse Rate 71 75 Respiratory Rate 18 Blood Pressure 123/57 L Pulse Oximetry 91 95 Oxygen Delivery Room Air 02/27/25 09:48 Temperature Pulse Rate 65 Respiratory Rate Blood Pressure Pulse Oximetry Oxygen Delivery Intake/Output Intake/Output: Intake & Output 02/24/25 02/25/25 02/26/25 02/27/25 23:59 23:59 23:59 23:59 Intake Total 250 1784 2361 617 Output Total 400 150 525 175 Balance -150 1634 1836 442 Meds/Results Medications: Active Medications Generic Name Dose Route Start Last Admin Trade Name Freq PRN Reason Stop Dose Admin Acetaminophen 650 mg 02/23/25 15:26 02/25/25 03:00 Acetaminophen 325 Mg Tablet FEED TUBE 650 mg Q4H PRN Administration Mild Pain (1-3) or Fever Artificial Tears 1 drop 02/08/25 09:32 Artificial Tears Ophth Soln 15 Ml Bottle EACH EYE 03/10/25 09:31 PRN PRN dry eye(s) Carvedilol 18.75 mg 02/23/25 21:00 02/27/25 09:48 Carvedilol 6.25 Mg Tablet FEED TUBE 18.75 mg Q12HR CARLIN Administration Dextrose 12.5 gm 02/26/25 07:21 Dextrose 50% 25 Gm/50 Ml Syringe IV PUSH PRN PRN Hypoglycemia Protocol Famotidine 20 mg 02/26/25 09:00 02/27/25 09:47 Famotidine 20 Mg Tablet FEED TUBE 20 mg Q12HR CARLIN Administration Fluconazole 100 mg 02/27/25 09:00 Fluconazole 100 Mg Tablet FEED TUBE QAM CARLIN Glucagon 1 mg 02/26/25 07:21 Glucagon For Inj 1 Mg Vial IM PRN PRN Hypoglycemia Protocol Glucose 15 gm 02/26/25 07:21 Glucose Oral Gel 15 Gm Of Glucse In 37.5 Gm Tube PO PRN PRN Hypoglycemia Protocol Dextrose 1,000 mls @ 100 mls/hr 02/26/25 07:21 Dextrose 5% 1,000 Ml IVPB PRN PRN Hypoglycemia Protocol Insulin Aspart 4 - 8 units 02/26/25 12:00 02/27/25 13:31 Insulin Aspart (*Bkc) 100 Units/Ml SUB-Q 4 units Q6HR CARLIN Administration Protocol Lamotrigine 200 mg 02/23/25 21:00 02/27/25 09:47 Lamotrigine 100 Mg Tablet FEED TUBE 200 mg Q12HR CARLIN Administration Levalbuterol HCl 1.25 mg 02/23/25 07:38 Levalbuterol Neb 1.25 Mg/3 Ml INHALATION Q6HRT PRN Shortness Of Breath Or Wheezing Lorazepam 1 mg 02/09/25 15:15 02/15/25 10:49 Lorazepam (*Crx) 1 Mg Tablet PO 1 mg Q8H PRN Administration Anxiety Ondansetron HCl 4 mg 02/07/25 15:41 02/16/25 12:09 Ondansetron Inj 4 Mg/2 Ml Vial IV PUSH 4 mg Q4H PRN Administration Nausea Sodium Bicarbonate 1,300 mg 02/25/25 13:00 02/27/25 13:31 Sodium Bicarbonate Tab 650 Mg Tablet FEED TUBE 1,300 mg TID CARLIN Administration Radiology Results: ITS Impressions Modified Barium Swallow 02/14/25 11:22 IMPRESSION: Mild pharyngeal dysphagia with laryngeal penetration without aspiration. Please correlate with speech pathologist findings and specific feeding recommendations. Renal Ultrasound 02/19/25 15:09 IMPRESSION: 1. Normal kidneys without hydronephrosis. Chest/Abdomen/Pelvis CT 02/20/25 15:06 Impression: Airspace consolidation groundglass opacity throughout both lungs. Correlate for interval element of pulmonary edema versus bilateral pneumonia. Increasing small bilateral pleural effusions with bibasilar atelectatic change. New inflammatory change and/or fluid in the upper abdomen, suggestive of acute pancreatitis. Correlate clinically. Chest X-Ray 02/21/25 06:02 Impression: Probable patchy mild pulmonary edema pattern versus patchy bilateral pneumonia. Correlate clinically. Small right pleural effusion. Venous Doppler Study 02/21/25 07:40 IMPRESSION: Deep venous thrombosis within the bilateral posterior tibial and peroneal veins, as detailed above. Remainder of the examination is unremarkable. Upper Quadrant Ultrasound 02/21/25 12:03 IMPRESSION: Unremarkable limited ultrasound examination of the right upper quadrant, as detailed above. Abdomen X-Ray 02/24/25 10:02 IMPRESSION: Nasogastric tube in good position and ready for immediate use. Head CT 02/25/25 07:48 Impression: Redemonstration of a focus of increased attenuation along the right frontal par ietal lobe, high in the convexity, decreased in size from original examination which may be artifactual in origin. No surrounding vasogenic edema. No midline shift. If clinically able, MRI examination is suggested as follow-up. Inflammatory sinus disease. Labs Labs: Laboratory Results - last 24 hr 02/26/25 02/26/25 02/27/25 17:21 23:36 06:25 WBC RBC Hgb Hct MCV MCH MCHC RDW Plt Count MPV Immature Gran % (Auto) Neut % (Auto) Lymph % (Auto) [place] % (Auto) Eos % (Auto) Baso % (Auto) Lymph # (Auto) [place] # (Auto) Eos # (Auto) Baso # (Auto) Abs Immat Gran (auto) Absolute Neuts (auto) Absolute Nucleated RBC Total Counted Neutrophils % (Manual) Band Neutrophils % Lymphocytes % (Manual) Monocytes % (Manual) Nucleated RBC % Abs Neuts (Manual) Abs Lymphs (Manual) Abs Monocytes (Manual) Nucleated RBCs Platelet Estimate Polychromasia Hypochromasia Anisocytosis Schistocytes Sodium Potassium Chloride Carbon Dioxide Anion Gap BUN Creatinine Estim Creat Clear Calc Estimated GFR Glucose POC Capillary Glucose 221 H 254 H 255 H Calcium Phosphorus Magnesium Total Bilirubin AST ALT Alkaline Phosphatase Total Protein Albumin 02/27/25 02/27/25 02/27/25 07:29 08:09 12:00 WBC 19.0 H RBC 2.62 L Hgb 8.2 L Hct 26.1 L MCV 99.6 MCH 31.3 MCHC 31.4 L RDW 21.0 H Plt Count 306 MPV 9.3 Immature Gran % (Auto) Not Reportable Neut % (Auto) Not Reportable Lymph % (Auto) Not Reportable [place] % (Auto) Not Reportable Eos % (Auto) Not Reportable Baso % (Auto) Not Reportable Lymph # (Auto) Not Reportable [place] # (Auto) Not Reportable Eos # (Auto) Not Reportable Baso # (Auto) Not Reportable Abs Immat Gran (auto) Not Reportable Absolute Neuts (auto) Not Reportable Absolute Nucleated RBC Not Reportable Total Counted 100 Neutrophils % (Manual) 80 H Band Neutrophils % 6 Lymphocytes % (Manual) 9 L Monocytes % (Manual) 5 Nucleated RBC % Not Reportable Abs Neuts (Manual) 16.34 H Abs Lymphs (Manual) 1.71 Abs Monocytes (Manual) 0.95 H Nucleated RBCs 3 Platelet Estimate Adequate Polychromasia 1+ Hypochromasia 2+ Anisocytosis 2+ Schistocytes None seen Sodium 148 H Potassium 3.5 Chloride 120 H Carbon Dioxide 14 L Anion Gap 14 H BUN 86 H Creatinine 3.97 H Estim Creat Clear Calc 15 Estimated GFR 11 L Glucose 260 H POC Capillary Glucose 225 H Calcium 9.2 Phosphorus 4.7 H Magnesium 2.9 H Total Bilirubin 0.6 AST 392 H ALT 107 H Alkaline Phosphatase 440 H Total Protein 5.1 L Albumin 2.2 L
[2025-02-27 15:55] VITALS: BP 108/56
[2025-02-27 22:00] VITALS: BP 116/48; PULSE 64; RESP 18; TEMP 36.5; O2SAT 97
[2025-02-28] MEDS: INSULIN ASPART (*BKC) 100 UNITS/ML SUB-Q ×3 (05:38→18:34)
[2025-02-28 06:00] VITALS: BP 154/63; PULSE 77; RESP 18; TEMP 36.4; O2SAT 100
--- NOTE | 2025-02-28 08:46 | PCSTNOTE ---
Please refer to the Bedside Swallow Evaluation in the EMR. Please note, silent aspiration cannot be ruled out at bedside. The patient is a 69 year old female referred for a repeat bedside swallow evaluation due to increased alertness from prior level. Patient last seen approximately 1 week prior attempted an MBS study but discontinued due to limited participation by resident. Resident has since had an NG tube placed due to decreased willingness to consume PO intake to meet nutritional needs. The patient was positioned upright in bed and did open her eyes and respond with simple yes and no responses. The patient was presented 5cc/tsp thin liquid and 3cc/1/2 tsp trials pudding. Oral Stage: Decreased awareness of the bolus required cues to swallow material. The patient was after a delay able to complete oral transit of the bolus without remaining residual. Pharyngeal Stage: Delayed swallow initiation was observed with reduced laryngeal elevation noted for both consistencies with verbal cues from the EXECUTIVE OFFICE MANAGER to complete the swallow. Following the swallow the patient performed a repeat swallow and had a cough response for each consistency trialed. The patient had a mild 'wet vocal quality and was unable to follow directives to complete a throat clear and repeat swallow. Recommend NPO with alternate means of nutrition. Consider speech consult in future as alertness improves.
[2025-02-28] MEDS: SODIUM BICARBONATE TAB 650 MG TABLET 1300 MG FEED TUBE ×3 (08:52→16:59)
[2025-02-28] MEDS: FAMOTIDINE 20 MG TABLET FEED TUBE ×2 (08:52→20:58)
[2025-02-28 09:25] VITALS: PULSE 81
[2025-02-28 09:38] LABS: Hematocrit 30.3 % (37.0-47.0); Hemoglobin 9.2 g/dL (12.0-15.0); Immature Platelet Fraction Pct 1.2 % (0.9-11.2); Mean Corpuscular HGB Conc 30.4 g/dl (32-36); Mean Corpuscular Hemoglobin 31.6 pg (26-34); Mean Corpuscular Volume 104.1 fl (80-100); Platelet Count Result 304 k/mm3 (150-375); Red Blood Count 2.91 M/mm3 (4.2-5.4); White Blood Count 19.5 K/mm3 (4.5-10.0)
[2025-02-28 10:21] LABS: Band Neutrophils Percent 7 % (0-6); Lymphocytes Absolute Manual 0.78 K/mm3 (1.1-4.5); Lymphocytes Percent Manual 4 % (18-44); Neutrophils Absolute Manual 17.55 K/mm3 (1.3-6.7); Neutrophils Percent Manual 83 % (46-73); Total Cells Counted 100
[2025-02-28 10:22] LABS: Monocytes Absolute Manual 1.17 K/mm3 (0.1-0.90); Monocytes Percent Manual 6 % (3-9)
[2025-02-28 10:23] LABS: Anisocytosis 2+; Polychromasia 1+; Schistocytes None Seen
[2025-02-28 10:43] LABS: Alanine Aminotransferase 110 U/L (6-35); Albumin Level 2.5 g/dL (3.5-5.1); Alkaline Phosphatase 430 U/L (38-126); Anion Gap 12 mmol/L (4-12); Aspartate Amino Transferase 254 U/L (14-36); Bilirubin,Total 0.5 mg/dL (0.2-1.3); Blood Urea Nitrogen 91 mg/dL (7-17); Calcium 9.2 mg/dL (8.4-10.2); Carbon Dioxide 16 mmol/L (22-30); Chloride 118 mmol/L (98-107); Estimated CRCL calculation 14 ml/min; Estimated Glomerular Filt Rate 11; Glucose 251 mg/dL (65-110); Potassium 3.3 mmol/L (3.4-5.0); Sodium 146 mmol/L (137-145); Total Protein 5.5 g/dL (6.3-8.2)
[2025-02-28] MEDS: POTASSIUM CHLORIDE 20 MEQ PACKET (FOR LIQUID) FEED TUBE (12:23)
[2025-02-28 14:00] VITALS: BP 114/52; PULSE 76; RESP 18; TEMP 37; O2SAT 95
--- NOTE | 2025-02-28 14:10 | P.PNNP_ITS ---
Progress Note: A&P Assessment and Plan (1) Acute kidney injury: Code(s): N17.9 - Acute kidney failure, unspecified Status: Acute Assessment and Plan: * continues to fluctuate * as noted on admission (creatinine 3.63mg/dl) * interestingly, associated with significant hypokalemia * transiently improved to 1.27mg/dl (on 02/12) * then started to progressively deteriorate again on 02/13 * suspect multifactorial etiology: * prerenal factors (poor oral intake) * infection/sepsis (bacteremia + UTI) * diuretic use * antibiotics (vancomycin toxicity?) * other? * evaluation to date noted: * normal renal ultrasound * urine electrolytes pre-renal * urine eosinophils negative * moderate proteinuria (~ 700mg) * CPK low * off IVFs due to concern of volume overload * significant acidosis noted as well (but refusing to take sodium bicarbonate tabs) * follow repeat labs and UOP (2) Stage 3 chronic kidney disease: Code(s): N18.30 - Chronic kidney disease, stage 3 unspecified Status: Chronic Assessment and Plan: * baseline creatinine runs ~ 1.0 - 1.5mg/dl * presumably due to hypertension, SIMEON, obesity, and age-related change (3) Altered mental status: Qualifiers: Altered mental status type: delirium Qualified Code(s): R41.0 - Disorientation, unspecified Code(s): R41.82 - Altered mental status, unspecified Status: Acute Assessment and Plan: * etiology not clear * possible issues include: * infection (bacteremia + fungal UTI) * previous hypoxia * previous SDH * electrolyte imbalance (low K+ but corrected) * psychiatric (known bipolar disorder) * CT of head without any acute findings * holding sedating medications * ongoing PT/OT/ST * follow trend of mentation (4) Sepsis: Code(s): A41.9 - Sepsis, unspecified organism Status: Acute Assessment and Plan: * due to several issues: * blood culture (1 set out of 2) with MRSA from 02/07 * possible pneumonia imaging (completed course of antibiotics) * fungal UTI [UA with budding yeast; urine culture with Val dubliniensis -- (fluconazole added 02/19 but patient refusing/not taking consistently] * repeat blood cultures (02/09 + 02/14) with no growth * respiratory pathogen panel positive for parainfluenza 3 * however worsening leukocytosis noted on 02/20 * CT C/A/P (on 02/20): showing airspace consolidation ground glass opacity throughout both lungs (correlate for interval element of pulmonary edema versus bilateral pneumonia); increasing small bilateral pleural effusions with bibasilar atelectatic change; new inflammatory change and/or fluid in the upper abdomen, suggestive of acute pancreatitis. * repeat blood cultures (02/20) with now growth to date * repeat urine culture (02/20) with no growth * meropenem added 02/20 * remains on vancomycin for MRSA bacteremia * continue supportive therapy (5) MRSA bacteremia: Code(s): R78.81 - Bacteremia; B95.62 - Methicillin resistant Staphylococcus aureus infection as the cause of diseases classified elsewhere Status: Acute Assessment and Plan: * as noted by culture data: * 1 out of 2 sets noted on 02/07 * repeat cultures to date negative * on vancomycin (6) UTI (urinary tract infection): Qualifiers: Urinary tract infection type: acute cystitis Hematuria presence: w ithout hematuria Qualified Code(s): N30.00 - Acute cystitis without hematuria Code(s): N39.0 - Urinary tract infection, site not specified Status: Acute Assessment and Plan: * admission UA (on 02/18) with 51-100 WB, 2+ LE and negative nitrates (but drawn from a [facility]) * urine culture with Val * on fluconazole (but refusing to take) (7) Pancreatitis: Code(s): K85.90 - Acute pancreatitis without necrosis or infection, unspecified Status: Acute Assessment and Plan: * incidental finding of 02/20 CT imaging: * new inflammatory change and/or fluid in the upper abdomen, suggestive of acute pancreatitis * lipase was 5561 with slow improvement * RUQ US showing no acute findings -- she is s/p cholecystectomy * benign exam and not complaining of abdominal pain * follow trend of lipase (8) DVT (deep venous thrombosis): Code(s): I82.409 - Acute embolism and thrombosis of unspecified deep veins of unspecified lower extremity Status: Acute Assessment and Plan: * dopplers of upper extremities and lower extremeties (on 02/20) noted: * negative for UEs * LEs with showing bilateral DVTs within the bilateral posterior tibial and peroneal veins. * on heparin gtt * switch to oral medication when patient taking oral medications reliably/consistently (9) Acute hypoxemic respiratory failure: Code(s): J96.01 - Acute respiratory failure with hypoxia Status: Acute Assessment and Plan: * resolved * thought to be secondary to acute CHF, pneumonia, and possibly refusal to wear CPAP * s/p diuresis with clinical improvement * weaned to room air * follow respiratory status closely given #1 (10) HTN (hypertension): Qualifiers: Hypertension type: essential hypertension Qualified Code(s): I10 - Essential (primary) hypertension Code(s): I10 - Essential (primary) hypertension Status: Chronic Assessment and Plan: * reasonable control * follow trend of hemodyamics (11) Diastolic dysfunction: Code(s): I51.89 - Other ill-defined heart diseases Status: Acute Assessment and Plan: * evidence of exacerbation earlier in hospital course * Cardiology recommendations noted * however, off lasix at this time due to #1 * follow volume status closely (12) Bipolar disorder: Qualifiers: Active/Remission status: currently active Code(s): F31.9 - Bipolar disorder, unspecified Status: Acute Assessment and Plan: * on Lamictal and sertraline * however, not taking regularly due to refusal at times * suspect may be playing a role with #3 * further intervention(?) Per my discussion with at bedside, he will likely have a final decision regarding level of care by tomorrrow (and based on my discussion wit him, he seems to be moving toward comfort care measures.) Will continue to follow. L Subjective Date/time seen: 02/28/25 14:10 Interval history: Follow-up for acute kidney injury/acute renal failure on chronic kidney disease. Renal function/creatinine continues to fluctuate as noted by trend of labs over the last few days -- however, her urine output seems to be a bit better in the last 24 - 48 hours; she appears to be a bit more responsive to questions at the time of my visit (but confusion persists); not apparent distress noted when seen; at bedside at the time of my visit and we discussed the situation in detail. Exam 2 Narrative: General: somewhat ill-appearing female in NAD Heart: normal S1 and S2; no rub Lungs: coarse breath sounds Abdomen: soft, nontender, nondistended, positive bowel sounds Extremities: no cyanosis or clubbing; 1+ edema Skin: warm and intact Objective Data Vital Signs Vital Signs: Vital Signs Temp Pulse Resp BP Pulse Ox O2 Del Method 02/28/25 14:00 98.6 F 76 18 114/52 L 95 02/28/25 09:25 81 02/28/25 08:00 Room Air 02/28/25 06:00 97.6 F 77 18 154/63 H 100 02/27/25 22:00 97.7 F 64 18 116/48 L 97 02/27/25 20:00 Room Air Intake/Output Intake/Output: Intake & Output 02/25/25 02/26/25 02/27/25 02/28/25 23:59 23:59 23:59 23:59 Intake Total 1784 2361 1189 749 Output Total 150 525 425 800 Balance 1634 1836 764 -51 Meds/Results Medications: Active Medications Generic Name Dose Route Start Last Admin Trade Name Freq PRN Reason Stop Dose Admin Acetaminophen 650 mg 02/23/25 15:26 02/25/25 03:00 Acetaminophen 325 Mg Tablet FEED TUBE 650 mg Q4H PRN Administration Mild Pain (1-3) or Fever Artificial Tears 1 drop 02/08/25 09:32 Artificial Tears Ophth Soln 15 Ml Bottle EACH EYE 03/10/25 09:31 PRN PRN dry eye(s) Carvedilol 18.75 mg 02/23/25 21:00 02/28/25 09:25 Carvedilol 6.25 Mg Tablet FEED TUBE 18.75 mg Q12HR CARLIN Administration Dextrose 12.5 gm 02/26/25 07:21 Dextrose 50% 25 Gm/50 Ml Syringe IV PUSH PRN PRN Hypoglycemia Protocol Famotidine 20 mg 02/26/25 09:00 02/28/25 08:52 Famotidine 20 Mg Tablet FEED TUBE 20 mg Q12HR CARLIN Administration Fluconazole 100 mg 02/27/25 09:00 Fluconazole 100 Mg Tablet FEED TUBE QAM CARLIN Glucagon 1 mg 02/26/25 07:21 Glucagon For Inj 1 Mg Vial IM PRN PRN Hypoglycemia Protocol Glucose 15 gm 02/26/25 07:21 Glucose Oral Gel 15 Gm Of Glucse In 37.5 Gm Tube PO PRN PRN Hypoglycemia Protocol Dextrose 1,000 mls @ 100 mls/hr 02/26/25 07:21 Dextrose 5% 1,000 Ml IVPB PRN PRN Hypoglycemia Protocol Insulin Aspart 4 - 8 units 02/26/25 12:00 02/28/25 18:34 Insulin Aspart (*Bkc) 100 Units/Ml SUB-Q 4 units Q6HR CARLIN Administration Protocol Lamotrigine 200 mg 02/23/25 21:00 02/28/25 08:52 Lamotrigine 100 Mg Tablet FEED TUBE 200 mg Q12HR CARLIN Administration Levalbuterol HCl 1.25 mg 02/23/25 07:38 Levalbuterol Neb 1.25 Mg/3 Ml INHALATION Q6HRT PRN Shortness Of Breath Or Wheezing Lorazepam 1 mg 02/09/25 15:15 02/15/25 10:49 Lorazepam (*Crx) 1 Mg Tablet PO 1 mg Q8H PRN Administration Anxiety Ondansetron HCl 4 mg 02/07/25 15:41 02/16/25 12:09 Ondansetron Inj 4 Mg/2 Ml Vial IV PUSH 4 mg Q4H PRN Administration Nausea Sodium Bicarbonate 1,300 mg 02/25/25 13:00 02/28/25 16:59 Sodium Bicarbonate Tab 650 Mg Tablet FEED TUBE 1,300 mg TID CARLIN Administration Radiology Results: ITS Impressions Modified Barium Swallow 02/14/25 11:22 IMPRESSION: Mild pharyngeal dysphagia with laryngeal penetration without aspiration. Please correlate with speech pathologist findings and specific feeding recommendations. Renal Ultrasound 02/19/25 15:09 IMPRESSION: 1. Normal kidneys without hydronephrosis. Chest/Abdomen/Pelvis CT 02/20/25 15:06 Impression: Airspace consolidation groundglass opacity throughout both lungs. Correlate for interval element of pulmonary edema versus bilateral pneumonia. Increasing small bilateral pleural effusions with bibasilar atelectatic change. New inflammatory change and/or fluid in the upper abdomen, suggestive of acute pancreatitis. Correlate clinically. Chest X-Ray 02/21/25 06:02 Impression: Probable patchy mild pulmonary edema pattern versus patchy bilateral pneumonia. Correlate clinically. Small right pleural effusion. Venous Doppler Study 02/21/25 07:40 IMPRESSION: Deep venous thrombosis within the bilateral posterior tibial and peroneal veins, as detailed above. Remainder of the examination is unremarkable. Upper Quadrant Ultrasound 02/21/25 12:03 IMPRESSION: Unremarkable limited ultrasound examination of the right upper quadrant, as detailed above. Abdomen X-Ray 02/24/25 10:02 IMPRESSION: Nasogastric tube in good position and ready for immediate use. Head CT 02/25/25 07:48 Impression: Redemonstration of a focus of increased attenuation along the right frontal parietal lobe, high in the convexity, decreased in size from original examination which may be artifactual in origin. No surrounding vasogenic edema. No midline shift. If clinically able, MRI examination is suggested as follow-up. Inflammatory sinus disease. Labs Labs: Laboratory Tests 02/28/25 09:28 02/28/25 10:14 Calcium 9.2 Total Bilirubin 0.5 AST 254 H ALT 110 H Alkaline Phosphatase 430 H Total Protein 5.5 L Albumin 2.5 L
--- NOTE | 2025-02-28 15:56 | P.PNIM_ITS ---
Progress Note: A&P Assessment and Plan (1) Altered mental status: Qualifiers: Altered mental status type: delirium Qualified Code(s): R41.0 - Disorientation, unspecified Code(s): R41.82 - Altered mental status, unspecified Status: Acute Assessment and Plan: Infection verses stroke versus electrolyte imbalance versus other (psych) CT head 02/07 showing no acute findings (CT head 01/11/25 showing small SDH and was sent to [facility] at that time) Psych evaluation performed and appreciate their input. Haldol prn recommended to control mood disorder PT/OT/ST NGT placed and Lamictal resumed. Mental status much better felt related to her getting her lamictal more regularly. Monitor for improvement. Ativan prn for agitation. 02/28/2025: Failed speech evaluation. Cannot stay conscious enough to swallow effectively. Can try again at a later date if needed. Three children have arrived from [place]. Lengthy discussion held with them and the at bedside. Prognosis, comfort care versus treatment discussed. They are currently continue to discuss amongst themselves. Made myself availabl e for any further discussion. All questions and concerns were answered to satisfaction. (2) Epidural hematoma: Code(s): S06.4XAA - Epidural hemorrhage with loss of consciousness status unknown, initial encounter Status: Acute Assessment and Plan: CT brain 02/23 showing possible right-sided frontal lobe epidural hematoma. Could be artifact but concerning for cerebral hemorrhage given the fact that she was on heparin with supratherapeutic PTT. Spoke with [facility] (Dr Baeza) neurosurgery. He recommended repeating CT brain in 4-6 hours which showed no change. Repeat CT brain 24 hours later showing increased attenuation along the right frontal parietal lobe that has decreased in size from original examination which may be artifactual in origin. No surrounding vasogenic edema. No midline shift. Holding all anticoagulation. Consider MRI to determine if this is a true finding if family wants to continue care plan. Family is stil considering moving to comfort measures. (3) SDH (subdural hematoma): Code(s): S06.5XAA - Traumatic subdural hemorrhage with loss of consciousness status unknown, initial encounter Status: Acute Assessment and Plan: Patient presented to the ED 01/[address] head showing very small SDH along the left side of the anterior falx cerebri. She was sent to [facility] where she was monitored without intervention. CT brain 02/07 showing no acute findings. Otherwise as above (4) Sepsis: Code(s): A41.9 - Sepsis, unspecified organism Status: Acute Assessment and Plan: Possible pneumonia vs UTI CXR concerning for PNA vs edema. BCx 02/07 positive for MRSA. TTE neg for endocarditis. per cardiology if repeat B/C neg no need for QI BCx 02/09 and 02/14 negative Pulmonary team was on board Respiratory pathogen panel positive for parainfluenza 3 IV antibiotics: -- Rocephin 02/07-, vancomycin started 02/09, Flagyl 02/11- -- Cefepime started 02/13 and completed a course on 02/19 WBC elevated but stable 16-20K range until 02/20 with WBC to 29K CT chest/Abd/Pelvis 02/20 showing airspace consolidation groundglass opacity throughout both lungs. Correlate for interval element of pulmonary edema versus bilateral pneumonia. Increasing small bilateral pleural effusions with bibasilar atelectatic change. New inflammatory change and/or fluid in the upper abdomen, suggestive of acute pancreatitis. UA with budding yeast with UCx 02/18 growing 10-49K Val dubliniensis. Fluconazole added 02/19 but patient refusing BCx 02/20 NGTD UCx 02/20 Negative Meropenem added 02/20 Vancomycin for MRSA bacteremia - completed 15 days and stopped 0n 02/23 Consider pancreatitis as reason for elevated WBC. No diarrhea or evidence of colitis to suggest CDIff. Covering MRSA, pseudomonas and ESBL. Doubt viral or fungal. No fevers. WBC better again today. Completed meropenem for 7 days. Holding diflucan due to rising LFTs (5) MRSA bacteremia: Code(s): R78.81 - Bacteremia; B95.62 - Methicillin resistant Staphylococcus aureus infection as the cause of diseases classified elsewhere Status: Acute Assessment and Plan: As above (6) Anemia: Code(s): D64.9 - Anemia, unspecified Status: Acute Assessment and Plan: Normal baseline Hgb. Hgb 12 on admission here Hgb drifted down to 10-11 and stable until dropped to 8 range on 02/23 Repeat HH stable. RN noted ?blood around her oral cavity so Pepcid started. Stool guaiac positive felt related to oral bleeding. Monitor HH. (7) Pancreatitis: Code(s): K85.90 - Acute pancreatitis without necrosis or infection, unspecified Status: Acute Assessment and Plan: Patient with incidental finding of CT Abd/Pelvis showing new inflammatory change and/or fluid in the upper abdomen, suggestive of acute pancreatitis. Lipase was 5561. Repeat level close to normal now RUQ US showing no acute findings. She is s/p cholecystectomy. TG level normal. Exam showing patient with more abd pain. NGT placed and TF started. Patient can be placed in soft restraints if needed. was agreeable Now that she is more awake, have speech re-evaluate to see if she can transition to oral feeding 02/28/2025: As above. (8) JERRY (acute kidney injury): Code(s): N17.9 - Acute kidney failure, unspecified Status: Acute Assessment and Plan: Cr mostly 1.2-1.5 range through December 2024. Cr 3.6 on admission and did improve to 1.3 a few days after admission but has since been climbing. IV fluids and lasix on hold I/O: +14L. Concerning for fluid overload on exam and by imaging. BNP 27K (BNP 3K in October) Renal US unremarkable Prot/Cr 0.7gm. [place] 18. FENa 0.2% Vanc troughs elevated and likely indicated vanc toxicity? No contrast given since admission. Nephrology following and appreciate their input. She is not eating so TF started Creatinine up to 4. Severe metabolic acidosis that is worse today. Potassium okay Patient close HD. considering hospice. Continue to monitor UOP, renal function and electrolytes. (9) DVT (deep venous thrombosis): Code(s): I82.409 - Acute embolism and thrombosis of unspecified deep veins of unspecified lower extremity Status: Acute Assessment and Plan: Doppler of the LUE negative for DVT Doppler of the bilateral LE showing bilateral DVT within the bilateral posterior tibial and peroneal veins. She is high risk for propagation to above the knee Heparin gtt started but now stopped since hx of recent cerebral hemorrhage and dropping HH Monitor. Will need IVC filter if family decides to continue care plan (10) UTI (urinary tract infection): Qualifiers: Urinary tract infection type: acute cystitis Hematuria presence: without hematuria Qualified Code(s): N30.00 - Acute cystitis without hematuria Code(s): N39.0 - Urinary tract infection, site not specified Status: Acute Assessment and Plan: UA 02/18 showing 51-100 WB, 2+ LE and negative nitrates but drawn from a [place] Could be causing altered mental status but felt more psych related UCx 02/18 growing Val and fluconazole added Currently on meropenem. No evidence of fungemia. Vanco stopped 02/23. Diflucan continued but hold now since LFTs worse UCx 02/20 negative. (11) Bipolar disorder: Qualifiers: Active/Remission status: currently active Code(s): F31.9 - Bipolar disorder, unspecified Status: Acute Assessment and Plan: Patient on Lamictal, duloxatine and sertraline but not taking regularly Duloxatine and sertraline stopped since not taking lamictal. And duloxatine contraindicated in JERRY Patient was taking lamictal intermittently. Changed to NG route Psych consulted and appreciate their input Resume sertraline at lower dose once she is better. (12) HTN (hypertension): Qualifiers: Hypertension type: essential hypertension Qualified Code(s): I10 - Essential (primary) hypertension Code(s): I10 - Essential (primary) hypertension Status: Chronic Assessment and Plan: Patient's blood pressure was reviewed on 02/27 Blood pressure remains well controlled. Will continue to monitor (13) Diastolic dysfunction: Code(s): I51.89 - Other ill-defined heart diseases Status: Acute Assessment and Plan: Acute on chronic HFpEF dc 'd lasix due to JERRY cardiology team on board. Resume diuretics when able (14) Obstructive sleep apnea on CPAP: Code(s): G47.33 - Obstructive sleep apnea (adult) (pediatric); Z99.89 - Dependence on other enabling machines and devices Status: Acute Assessment and Plan: Does not appear to be on home CPAP (15) NSTEMI (non-ST elevated myocardial infarction): Code(s): I21.4 - Non-ST elevation (NSTEMI) myocardial infarction Status: Acute Assessment and Plan: Troponin: 0.287-0.364 Likely demand ischemia monitor for now Cardiology team was following (16) Acute hypoxemic respiratory failure: Code(s): J96.01 - Acute respiratory failure with hypoxia Status: Acute Assessment and Plan: Patie[place] with SOB and hypoxia 02/12 up to 4L. [place] related to CHF with her weight gain, imaging findings and BNP 28K. Patient received Lasix 40mg on 02/12 in the evening. There is no evidence of hypercarbic respiratory failure with ABG on 4 L 7.45/32/57. Weaned to room air. Follow (17) Diarrhea: Code(s): R19.7 - Diarrhea, unspecified Status: Acute Assessment and Plan: Likely cause of acute dehydration and hypokalemia Negative for C diff. Stool culture negative. Imodium once on 02/12. Resolved (18) Acute hypokalemia: Code(s): E87.6 - Hypokalemia Status: Acute Assessment and Plan: Potassium was replaced. Levels normalized Continue monitoring Plan Hyperglycemia - A1c 4.7%. AccuCheks covering with sliding scale. Hypoglycemia protocol available as needed. DVT prophylaxis - off heaprin due to hx of SDH and anemia. Will need IVC filter if family decides to continue full care. Code status - full Subjective Date/time seen: 02/28/25 15:56 Interval history: No major acute overnight events. and 3 children at bedside. Patient does not follow commands. She opens her eyes, has poor tracking and has simple responses, often drifting off. Otherwise calm. Review of Systems Review of Systems: ROS unobtainable: Yes unobtainable due to mental status Exam Const: General: comfortable and no acute distress HENMT: Mouth: Yes dry mucous membranes Eyes: Pupils: Equal, round and reactive pupils present Neck: Neck: supple Resp: Effort & Inspection: normal respiratory effort Auscultation: clear to auscultation bilaterally Cardio: Rate: regular rate Rhythm: regular rhythm GI: GI Palp: Yes Soft to palpation Extrem: General: edema Objective Data Vital Signs Vital Signs: Vital Signs - 24 hr 02/27/25 20:00 02/27/25 22:00 02/28/25 06:00 Temperature 97.7 F 97.6 F Pulse Rate 64 77 Respiratory Rate 18 18 Blood Pressure 116/48 L 154/63 H Pulse Oximetry 97 100 Oxygen Delivery Room Air 02/28/25 08:00 02/28/25 09:02/28/25 14:00 Temperature 98.6 F Pulse Rate 81 76 Respiratory Rate 18 Blood Pressure 114/52 L Pulse Oximetry 95 Oxygen Delivery Room Air Intake/Output Intake/Output: Intake & Output 02/25/25 02/26/25 02/27/2525 23:59 23:59 23:59 23:59 Intake Total 1788 5248 1181 749 Output Total 150 525 425 600 Balance 1634 1836 764 149 Meds/Results Medications: Active Medications Generic Name Dose Route Start Last Admin Trade Name Freq PRN Reason Stop Dose Admin Acetaminophen 650 mg 02/23/25 15:26 02/25/25 03:00 Acetaminophen 325 Mg Tablet FEED TUBE 650 mg Q4H PRN Administration Mild Pain (1-3) or Fever Artificial Tears 1 drop 02/08/25 09:32 Artificial Tears Ophth Soln 15 Ml Bottle EACH EYE 03/10/25 09:31 PRN PRN dry eye(s) Carvedilol 18.75 mg 02/23/25 21:00 02/28/25 09:25 Carvedilol 6.25 Mg Tablet FEED TUBE 18.75 mg Q12HR CARLIN Administration Dextrose 12.5 gm 02/26/25 07:21 Dextrose 50% 25 Gm/50 Ml Syringe IV PUSH PRN PRN Hypoglycemia Protocol Famotidine 20 mg 02/26/25 09:00 02/28/25 08:52 Famotidine 20 Mg Tablet FEED TUBE 20 mg Q12HR CARLIN Administration Fluconazole 100 mg 02/27/25 09:00 Fluconazole 100 Mg Tablet FEED TUBE QAM CARLIN Glucagon 1 mg 02/26/25 07:21 Glucagon For Inj 1 Mg Vial IM PRN PRN Hypoglycemia Protocol Glucose 15 gm 02/26/25 07:21 Glucose Oral Gel 15 Gm Of Glucse In 37.5 Gm Tube PO PRN PRN Hypoglycemia Protocol Dextrose 1,000 mls @ 100 mls/hr 02/26/25 07:21 Dextrose 5% 1,000 Ml IVPB PRN PRN Hypoglycemia Protocol Insulin Aspart 4 - 8 units 02/26/25 12:00 02/28/25 12:30 Insulin Aspart (*Bkc) 100 Units/Ml SUB-Q 4 units Q6HR CARLIN Administration Protocol Lamotrigine 200 mg 02/23/25 21:00 02/28/25 08:52 Lamotrigine 100 Mg Tablet FEED TUBE 200 mg Q12HR CARLIN Administration Levalbuterol HCl 1.25 mg 02/23/25 07:38 Levalbuterol Neb 1.25 Mg/3 Ml INHALATION Q6HRT PRN Shortness Of Breath Or Wheezing Lorazepam 1 mg 02/09/25 15:15 02/15/25 10:49 Lorazepam (*Crx) 1 Mg Tablet PO 1 mg Q8H PRN Administration Anxiety Ondansetron HCl 4 mg 02/07/25 15:41 02/16/25 12:09 Ondansetron Inj 4 Mg/2 Ml Vial IV PUSH 4 mg Q4H PRN Administration Nausea Sodium Bicarbonate 1,300 mg 02/25/25 13:00 02/28/25 12:23 Sodium Bicarbonate Tab 650 Mg Tablet FEED TUBE 1,300 mg TID CARLIN Administration Radiology Results: ITS Impressions Modified Barium Swallow 02/14/25 11:22 IMPRESSION: Mild pharyngeal dysphagia with laryngeal penetration without aspiration. Please correlate with speech pathologist findings and specific feeding recommendations. Renal Ultrasound 02/19/25 15:09 IMPRESSION: 1. Normal kidneys without hydronephrosis. Chest/Abdomen/Pelvis CT 02/20/25 15:06 Impression: Airspace consolidation groundglass opacity throughout both lungs. Correlate for interval element of pulmonary edema versus bilateral pneumonia. Increasing small bilateral pleural effusions with bibasilar atelectatic change. New inflammatory change and/or fluid in the upper abdomen, suggestive of acute pancreatitis. Correlate clinically. Chest X-Ray 02/21/25 06:02 Impression: Probable patchy mild pulmonary edema pattern versus patchy bilateral pneumonia. Correlate clinically. Small right pleural effusion. Venous Doppler Study 02/21/25 07:40 IMPRESSION: Deep venous thrombosis within the bilateral posterior tibial and peroneal veins, as detailed above. Remainder of the examination is unremarkable. Upper Quadrant Ultrasound 02/21/25 12:03 IMPRESSION: Unremarkable limited ultrasound examination of the right upper quadrant, as detailed above. Abdomen X-Ray 02/24/25 10:02 IMPRESSION: Nasogastric tube in good position and ready for immediate use. Head CT 02/25/25 07:48 Impression: Redemonstration of a focus of increased attenuation along the right frontal parietal lobe, high in the convexity, decreased in size from original examination which may be artifactual in origin. No surrounding vasogenic edema. No midline shift. If clinically able, MRI examination is suggested as follow-up. Inflammatory sinus disease. Labs Labs: Laboratory Results - last 24 hr 02/27/25 02/27/25 02/28/25 17:32 23:48 05:37 WBC RBC Hgb Hct MCV MCH MCHC RDW Plt Count MPV Immature Gran % (Auto) Neut % (Auto) Lymph % (Auto) [place] % (Auto) Eos % (Auto) Baso % (Auto) Lymph # (Auto) [place] # (Auto) Eos # (Auto) Baso # (Auto) Abs Immat Gran (auto) Absolute Neuts (auto) Absolute Nucleated RBC Total Counted Neutrophils % (Manual) Band Neutrophils % Lymphocytes % (Manual) Monocytes % (Manual) Nucleated RBC % Abs Neuts (Manual) Abs Lymphs (Manual) Abs Monocytes (Manual) Platelet Estimate % Immature Plt Fraction Polychromasia Anisocytosis Schistocytes Sodium Potassium Chloride Carbon Dioxide Anion Gap BUN Creatinine Estim Creat Clear Calc Estimated GFR Glucose POC Capillary Glucose 222 H 216 H 211 H Calcium Total Bilirubin AST ALT Alkaline Phosphatase Total Protein Albumin 02/28/25 02/28/25 02/28/25 09:28 10:14 12:27 WBC 19.5 H RBC 2.91 L Hgb 9.2 L Hct 30.3 L MCV 104.1 H MCH 31.6 MCHC 30.4 L RDW 22.4 H Plt Count 304 MPV 10.0 Immature Gran % (Auto) Not Reportable Neut % (Auto) Not Reportable Lymph % (Auto) Not Reportable [place] % (Auto) Not Reportable Eos % (Auto) Not Reportable Baso % (Auto) Not Reportable Lymph # (Auto) Not Reportable [place] # (Auto) Not Reportable Eos # (Auto) Not Reportable Baso # (Auto) Not Reportable Abs Immat Gran (auto) Not Reportable Absolute Neuts (auto) Not Reportable Absolute Nucleated RBC Not Reportable Total Counted 100 Neutrophils % (Manual) 83 H Band Neutrophils % 7 H Lymphocytes % (Manual) 4 L Monocytes % (Manual) 6 Nucleated RBC % Not Reportable Abs Neuts (Manual) 17.55 H Abs Lymphs (Manual) 0.78 L Abs Monocytes (Manual) 1.17 H Platelet Estimate Adequate % Immature Plt Fraction 1.2 Polychromasia 1+ Anisocytosis 2+ Schistocytes None seen Sodium 146 H Potassium 3.3 L Chloride 118 H Carbon Dioxide 16 L Anion Gap 12 BUN 91 H Creatinine 4.12 H Estim Creat Clear Calc 14 Estimated GFR 11 L Glucose 251 H POC Capillary Glucose 250 H Calcium 9.2 Total Bilirubin 0.5 AST 254 H ALT 110 H Alkaline Phosphatase 430 H Total Protein 5.5 L Albumin 2.5 L
[2025-02-28 20:58] VITALS: PULSE 66
[2025-02-28 22:05] VITALS: BP 149/58; PULSE 73; RESP 16; TEMP 36.9; O2SAT 95
[2025-03-01] MEDS: INSULIN ASPART (*BKC) 100 UNITS/ML SUB-Q ×2 (00:34→05:53)
[2025-03-01 06:00] VITALS: BP 143/54; PULSE 80; RESP 16; TEMP 36.9; O2SAT 93
[2025-03-01 07:10] LABS: Hematocrit 27.4 % (37.0-47.0); Hemoglobin 8.5 g/dL (12.0-15.0); Immature Granulocyte Percent A 9.7 % (0-0.5); Lymphocytes Absolute Auto 1.74 K/mm3 (0.9-3.2); Mean Corpuscular HGB Conc 31.0 g/dl (32-36); Mean Corpuscular Hemoglobin 31.7 pg (26-34); Mean Corpuscular Volume 102.2 fl (80-100); Nucleated Red Blood Cells Absolute Auto 0.070 K/mm3 (0.0-0.012); Nucleated Red Blood Cells Perc 0.4 % (0.0-0.2); Platelet Count Result 321 k/mm3 (150-375); Red Blood Count 2.68 M/mm3 (4.2-5.4); White Blood Count 19.2 K/mm3 (4.5-10.0)
[2025-03-01 07:36] LABS: Alanine Aminotransferase 92 U/L (6-35); Albumin Level 2.6 g/dL (3.5-5.1); Alkaline Phosphatase 437 U/L (38-126); Anion Gap 12 mmol/L (4-12); Aspartate Amino Transferase 149 U/L (14-36); Bilirubin,Total 0.4 mg/dL (0.2-1.3); Blood Urea Nitrogen 92 mg/dL (7-17); Calcium 9.6 mg/dL (8.4-10.2); Carbon Dioxide 18 mmol/L (22-30); Chloride 116 mmol/L (98-107); Estimated CRCL calculation 14 ml/min; Estimated Glomerular Filt Rate 10; Glucose 273 mg/dL (65-110); Magnesium 3.0 mg/dL (1.6-2.3); Potassium 2.7 mmol/L (3.4-5.0); Sodium 146 mmol/L (137-145); Total Protein 5.8 g/dL (6.3-8.2)
[2025-03-01 08:11] LABS: Anisocytosis 2+; Hypochromasia 1+; Schistocytes None Seen
[2025-03-01 08:48] VITALS: PULSE 81
[2025-03-01] MEDS: SODIUM BICARBONATE TAB 650 MG TABLET 1300 MG FEED TUBE (08:48)
[2025-03-01] MEDS: FAMOTIDINE 20 MG TABLET FEED TUBE (08:48)
[2025-03-01] MEDS: POTASSIUM CHLORIDE 20 MEQ PACKET (FOR LIQUID) PO (13:13)
[2025-03-01] MEDS: POTASSIUM CHLORIDE 20 MEQ PACKET (FOR LIQUID) 40 MEQ PO (13:13)
--- NOTE | 2025-03-01 13:59 | P.PNIM_ITS ---
Progress Note: A&P Assessment and Plan (1) Acute kidney injury: Code(s): N17.9 - Acute kidney failure, unspecified Status: Acute (2) Altered mental status: Qualifiers: Altered mental status type: delirium Qualified Code(s): R41.0 - Disorientation, unspecified Code(s): R41.82 - Altered mental status, unspecified Status: Acute (3) SDH (subdural hematoma): Code(s): S06.5XAA - Traumatic subdural hemorrhage with loss of consciousness status unknown, initial encounter Status: Acute Plan Family has elected to pursue comfort care. Comfort care orders activated. Made myself available for any further questions/discussion. DNR. Subjective Date/time seen: 03/01/25 13:59 Interval history: No major acute overnight events Review of Systems Review of Systems: All systems reviewed & are unremarkable except as noted in HPI and below ROS unobtainable: Yes unobtainable due to mental status Exam Const: General: comfortable and no acute distress Eyes: Pupils: Equal, round and reactive pupils present Resp: Effort & Inspection: normal respiratory effort Cardio: Rate: regular rate Rhythm: regular rhythm Extrem: General: edema Objective Data Vital Signs Vital Signs: Vital Signs - 24 hr 02/28/25 14:00 02/28/25 20:00 02/28/25 20:58 Temperature 98.6 F Pulse Rate 76 66 Respiratory Rate 18 Blood Pressure 114/52 L Pulse Oximetry 95 Oxygen Delivery Room Air 02/28/25 22:05 03/01/25 06:00 03/01/25 08:00 Temperature 98.5 F 98.4 F Pulse Rate 73 80 Respiratory Rate 16 16 Blood Pressure 149/58 H 143/54 H Pulse Oximetry 95 93 Oxygen Delivery Room Air 03/01/25 08:48 Temperature Pulse Rate 81 Respiratory Rate Blood Pressure Pulse Oximetry Oxygen Delivery Intake/Output Intake/Output: Intake & Output 02/26/25 02/27/25 02/28/25 03/01/25 23:59 23:59 23:59 23:59 Intake Total 6115 0527 611114 611 6265 Output Total 587 549 800 600 Balance 4386 764 -70 1404 Meds/Results Medications: Active Medications Generic Name Dose Route Start Last Admin Trade Name Freq PRN Reason Stop Dose Admin Acetaminophen 650 mg 02/23/25 15:26 02/25/25 03:00 Acetaminophen 325 Mg Tablet FEED TUBE 650 mg Q4H PRN Administration Mild Pain (1-3) or Fever Artificial Tears 1 drop 02/08/25 09:32 Artificial Tears Ophth Soln 15 Ml Bottle EACH EYE 03/10/25 09:31 PRN PRN dry eye(s) Atropine Sulfate 1 - 2 drop 03/01/25 09:50 Atropine Sulfate 1% Ophth Soln 5 Ml Bottle SUBLINGUAL Q4H PRN Secretions Lorazepam 2 mg 03/01/25 09:50 Lorazepam Inj (*Crx) 2 Mg/Ml Vial IV PUSH Q2H PRN Anxiety/Comfort Morphine Sulfate 2 mg 03/01/25 09:50 Morphine Sulfate (*Crx) 2 Mg/Ml Inj IV PUSH Q30M PRN COMFORT Radiology Results: ITS Impressions Modified Barium Swallow 02/14/25 11:22 IMPRESSION: Mild pharyngeal dysphagia with laryngeal penetration without aspiration. Please correlate with speech pathologist findings and specific feeding recommendations. Renal Ultrasound 02/19/25 15:09 IMPRESSION: 1. Normal kidneys without hydronephrosis. Chest/Abdomen/Pelvis CT 02/20/25 15:06 Impression: Airspace consolidation groundglass opacity throughout both lungs. Correlate for interval element of pulmonary edema versus bilateral pneumonia. Increasing small bilateral pleural effusions with bibasilar atelectatic change. New inflammatory change and/or fluid in the upper abdomen, suggestive of acute pancreatitis. Correlate clinically. Chest X-Ray 02/21/25 06:02 Impression: Probable patchy mild pulmonary edema pattern versus patchy bilateral pneumonia. Correlate clinically. Small right pleural effusion. Venous Doppler Study 02/21/25 07:40 IMPRESSION: Deep venous thrombosis within the bilateral posterior tibial and peroneal veins, as detailed above. Remainder of the examination is unremarkable. Upper Quadrant Ultrasound 02/21/25 12:03 IMPRESSION: Unremarkable limited ultrasound examination of the right upper quadrant, as detailed above. Abdomen X-Ray 02/24/25 10:02 IMPRESSION: Nasogastric tube in good position and ready for immediate use. Head CT 02/25/25 07:48 Impression: Redemonstration of a focus of increased attenuation along the right frontal parietal lobe, high in the convexity, decreased in size from original examination which may be artifactual in origin. No surrounding vasogenic edema. No midline shift. If clinically able, MRI examination is suggested as follow-up. Inflammatory sinus disease. Labs Labs: Laboratory Results - last 24 hr 02/28/25 02/28/25 03/01/25 18:29 23:44 05:53 WBC RBC Hgb Hct MCV MCH MCHC RDW Plt Count MPV Immature Gran % (Auto) Neut % (Auto) Lymph % (Auto) [place] % (Auto) Eos % (Auto) Baso % (Auto) Lymph # (Auto) [place] # (Auto) Eos # (Auto) Baso # (Auto) Abs Immat Gran (auto) Absolute Neuts (auto) Absolute Nucleated RBC Band Neutrophils % Nucleated RBC % Platelet Estimate Hypochromasia Anisocytosis Schistocytes Sodium Potassium Chloride Carbon Dioxide Anion Gap BUN Creatinine Estim Creat Clear Calc Estimated GFR Glucose POC Capillary Glucose 242 H 238 H 286 H Calcium Phosphorus Magnesium Total Bilirubin AST ALT Alkaline Phosphatase Total Protein Albumin 03/01/25 06:49 WBC 19.2 H RBC 2.68 L Hgb 8.5 L Hct 27.4 L MCV 102.2 H MCH 31.7 MCHC 31.0 L RDW 22.4 H Plt Count 321 MPV 9.8 Immature Gran % (Auto) 9.7 H Neut % (Auto) 72.7 Lymph % (Auto) 9.1 L [place] % (Auto) 7.0 Eos % (Auto) 0.7 Baso % (Auto) 0.8 Lymph # (Auto) 1.74 [place] # (Auto) 1.3 H Eos # (Auto) 0.1 Baso # (Auto) 0.2 H Abs Immat Gran (auto) 1.86 H Absolute Neuts (auto) 14.0 H Absolute Nucleated RBC 0.070 H Band Neutrophils % Not Reportable Nucleated RBC % 0.4 H Platelet Estimate Adequate Hypochromasia 1+ Anisocytosis 2+ Schistocytes None seen Sodium 146 H Potassium 2.7 L* Chloride 116 H Carbon Dioxide 18 L Anion Gap 12 BUN 92 H Creatinine 4.22 H Estim Creat Clear Calc 14 Estimated GFR 10 L Glucose 273 H POC Capillary Glucose Calcium 9.6 Phosphorus 4.9 H Magnesium 3.0 H Total Bilirubin 0.4 AST 149 H ALT 92 H Alkaline Phosphatase 437 H Total Protein 5.8 L Albumin 2.6 L
[2025-03-01 14:00] VITALS: BP 121/53; PULSE 79; RESP 24; TEMP 36.2; O2SAT 90
[2025-03-01 21:55] VITALS: BP 149/74; PULSE 84; RESP 18; TEMP 36.8; O2SAT 96
[2025-03-02 06:00] VITALS: BP 154/74; PULSE 86; RESP 16; TEMP 37; O2SAT 95
[2025-03-02] MEDS: INSULIN ASPART (*BKC) 100 UNITS/ML 6 UNITS SUB-Q (06:30)
--- NOTE | 2025-03-02 12:50 | PM.DS ---
DS: Admitting Diagnosis Discharge Date 03/02/2025 Admitting Diagnosis Altered mental status DS: Discharge Diagnosis Discharge Diagnosis (1) Anemia: Code(s): D64.9 - Anemia, unspecified Status: Acute (2) DVT (deep venous thrombosis): Code(s): I82.409 - Acute embolism and thrombosis of unspecified deep veins of unspecified lower extremity Status: Acute (3) Bipolar disorder: Qualifiers: Active/Remission status: currently active Code(s): F31.9 - Bipolar disorder, unspecified Status: Acute (4) Altered mental status: Qualifiers: Altered mental status type: delirium Qualified Code(s): R41.0 - Disorientation, unspecified Code(s): R41.82 - Altered mental status, unspecified Status: Acute (5) SDH (subdural hematoma): Code(s): S06.5XAA - Traumatic subdural hemorrhage with loss of consciousness status unknown, initial encounter Status: Acute (6) Epidural hematoma: Code(s): S06.4XAA - Epidural hemorrhage with loss of consciousness status unknown, initial encounter Status: Acute DS: Summary Hospital Course Hospital Course: 69-year-old female with a history of bipolar 1, hypertension, brain tumor, iron deficiency anemia, CKD, [facility]ON [facility] on 02/27/2025 with altered mental status. The patient's mental status never improved significantly, it did wax and wane. Other inpatient problems included epidural hematoma, subdural hematoma, sepsis, MRSA bacteremia, pancreatitis, JERRY, DVT, UTI, anemia, bipolar disorder, diastolic dysfunction, SIMEON on CPAP, NSTEMI, acute hypoxic respiratory failure, hypokalemia, diarrhea. On 03/01/2025 after careful discussion the family has independently decided to pursue comfort care for the patient. She cannot make decisions for herself as she remains encephalopathic. On 03/02/2025 the patient is discharged in stable condition but limited prognosis [facility]. The patient remains DNR status. Time Spent with Patient Time attestation: Total time spent providing and/or coordinating discharge services: Exam Const: General: comfortable and no acute distress Other: A&O x1 HENMT: Mouth: Yes dry mucous membranes Eyes: Pupils: Equal, round and reactive pupils present Neck: Neck: supple Resp: Effort & Inspection: normal respiratory effort Auscultation: clear to auscultation bilaterally Cardio: Rate: regular rate Rhythm: regular rhythm GI: GI Palp: Yes Soft to palpation Extrem: General: edema DS: Data Data Completed and Pending Labs on day of discharge: Labs from last 24 hours 03/02/25 03/01/25 05:19 23:18 POC Capillary Glucose 363 H 308 H Discharge Plan Discharge Attending physician on discharge: Neyda Young Consulting providers: Marcoi Schumacher; Singh Bell; Janak Crespo; Julian Duvall Discharging Clinician: Neyda Young Patient Disposition: Hospice - Medical Facility Activity: no straining Diet: as tolerated Patient Language: Tamazight Stand Alone Forms: General Discharge Information Discharge Medications: Continued acetaminophen 325 mg capsule 650 mg PO Q4H PRN (Reason: pain (scale score 1-3)) (DME) Overnight Ox See Rx Instructions .Route .MEDSUPPLY Qty: 1 0RF Rx Instructions: Overnight Oximetry 4 L/Min BIPAP DX Code: G47.33 Length of Need: Lifetime DME:Nory Cannon MDNPI: [id number] albuterol sulfate 90 mcg/actuation HFA aerosol inhaler 1 - 2 puff inhalation Q4-6H PRN (Reason: shortness of breath or wheezing) Qty: 8.5 2RF Discontinued duloxetine [Cymbalta] 60 mg capsule,delayed release(DR/EC) 60 mg PO Q12H Tyrvaya 0.03 mg/spray spray, metered, non-aerosol 0.03 mg intranasal Q12H Rx Instructions: administer into each nostril; approximately 12 hours apart hydrocodone-acetaminophen 5-325 mg tablet 1 tablet PO Q6H PRN (Reason: pain) Qty: 12 0RF menthol-zinc oxide [CalaSoothe] 0.44-20.6 % ointment 1 applic topical DAILY PRN (Reason: skin irritation) Fiber Gummies 1.7 gram tablet,chewable 3.4 g PO DAILY polyethylene glycol 3350 17 gram/dose powder 17 g PO DAILY PRN (Reason: constipation) Artificial Tears(pvalch-povid) 0.5-0.6 % drops 1 drp EACH EYE Q60M PRN (Reason: dry eye(s)) senna 8.6 mg capsule 8.6 mg PO HS lorazepam 2 mg tablet 2 mg PO TID Wegovy 1 mg/0.5 mL pen injector 1 mg subcut .biweekly Patient Comments: Every Wed and sertraline 100 mg tablet 100 mg PO DAILY ferrous sulfate 325 mg (65 mg iron) Tablet 325 mg PO DAILY ascorbic acid (vitamin C) 1,000 mg Tablet,Chewable 1 g PO DAILY lamotrigine 200 mg tablet 200 mg PO Q12H oxybutynin chloride 10 mg tablet extended release 24hr 10 mg PO DAILY aspirin 81 mg Tablet,Delayed Release (Dr/Ec) 81 mg PO DAILY hydrochlorothiazide 12.5 mg tablet 12.5 mg PO QAM Qty: 90 1RF No Action carvedilol 12.5 mg tablet 18.75 mg PO Q12H Date of admission: 02/08/25 09:01 Primary Care Provider: HopeNikolas Admitting Provider: Estrella De La Torre Attending physician on admission: Dionisio Greenfield Condition: Stable Hospitalist MIPS Heart Failure (Exclusion) Patient has history of Heart Transplant or Left Ventricular Assistive Device?: No IF YES, STOP HERE Heart Failure (Qualifier) Patient has current or prior documentation of LVEF less than or equal to 40%, or mod/servere depressed LVSF?: No IF NO, STOP HERE
[2025-03-02 14:00] VITALS: BP 138/68; PULSE 97; RESP 18; TEMP 36.4; O2SAT 100
== END 2025-03-02 18:09 | disposition hospice, home (50) | DRG 871 ==
LOC: ANHED 16:20 → ANHIMU 16:21 → ANH3MED 02-28 16:54 → ANHIMU 03-05 08:29 → ANH2MED 03-05 08:29
PROVIDERS: Internal Medicine; Internal Medicine Nephrology; Internal Medicine Pulmonary Disease; Nurse Practitioner Gerontology; Registered Nurse; Admitting Provider Internal Medicine; Emergency Provider Emergency Medicine; PCP Internal Medicine; Visit Provider General Practice
DX: A41.9 Sepsis, unspecified organism (principal); G93.41 Metabolic encephalopathy; I50.33 Acute on chronic diastolic (congestive) heart failure; J18.9 Pneumonia, unspecified organism; J96.01 Acute respiratory failure with hypoxia; K85.90 Acute pancreatitis without necrosis or infection, unspecified; I62.1 Nontraumatic extradural hemorrhage; N17.9 Acute kidney failure, unspecified; I24.89 Other forms of acute ischemic heart disease; I13.0 Hypertensive heart and chronic kidney disease with heart failure and stage 1 through stage 4 chronic kidney disease, or unspecified chronic kidney disease; B37.49 Other urogenital candidiasis; I82.453 Acute embolism and thrombosis of peroneal vein, bilateral; I82.443 Acute embolism and thrombosis of tibial vein, bilateral; F05 Delirium due to known physiological condition; R41.82 Altered mental status, unspecified; K52.9 Noninfective gastroenteritis and colitis, unspecified; N18.30 Chronic kidney disease, stage 3 unspecified; B95.62 Methicillin resistant Staphylococcus aureus infection as the cause of diseases classified elsewhere; E87.6 Hypokalemia; G47.33 Obstructive sleep apnea (adult) (pediatric); E86.0 Dehydration; K21.9 Gastro-esophageal reflux disease without esophagitis; R73.9 Hyperglycemia, unspecified; D50.9 Iron deficiency anemia, unspecified; I35.0 Nonrheumatic aortic (valve) stenosis; D72.829 Elevated white blood cell count, unspecified; F31.9 Bipolar disorder, unspecified; Z96.652 Presence of left artificial knee joint; Z87.891 Personal history of nicotine dependence; Z87.820 Personal history of traumatic brain injury; Z90.49 Acquired absence of other specified parts of digestive tract; Z98.84 Bariatric surgery status; Z98.1 Arthrodesis status; Z99.3 Dependence on wheelchair
CPT/HCPCS: 36410; 36415; 36600; 70450; 71045; 71250; 74176; 74230; 76705; 76775; 80048; 80053; 80202; 81001; 81050; 82140; 82274; 82550; 82570; 82805; 82948; 83036; 83605; 83690; 83735; 83880; 84100; 84132; 84145; 84156; 84300; 84478; 84484; 84540; 85014; 85018; 85025; 85027; 85055; 85610; 85730; 85999; 86140; 86703; 86738; 86803; 87040; 87045; 87086; 87181; 87340; 87427; 87449; 87493; 87633; 87899; 92507; 92523; 92526; 92610; 92611; 93005; 93970; 94640; 94667; 96361; 96365; 96366; 96367; 96372; 96375; 99285; A9270; C1751; C8929; G0378; G0432; J0692; J0696; J1450; J1644; J1815; J1836; J1938; J2060; J2185; J2359; J2405; J2720; J3370; J3480; J7030; J7040; J7050; P9047; Q9957

== ENCOUNTER 2025-03-04 17:19 | Emergency (ER) | payer OTHER, MEDICARE, SELFPAY ==
[2025-03-04 17:23] VITALS: BP 128/72; PULSE 85; RESP 20; TEMP 36.7; O2SAT 94
--- NOTE | 2025-03-04 17:30 | ECG_ITS ---
Test Date: 2025-03-04 17:32:02 Measurements Intervals [place] Rate: 79 P: 9 AL: 141 QRS: 16 QRSD: 102 T: 59 QT: 410 QTc: 472 Interpretive Statements SINUS RHYTHM NONSPECIFIC T-WAVE ABNORMALITY Compared to ECG 02/12/2025 16:33:36 T-wave abnormality now present Incomplete right bundle-branch block no longer present Electronically Signed On 03-05-2025 15:52:41 CDT by Jax Syed M.D.
--- OUTSIDE RECORDS SUMMARY | 2025-03-04 17:59 | XMS_ITS | Clinical Summary ---
Author Organization [facility] Address [address] [place] [address] Phone Care Team Providers Care Patrol Police Sergeant Name Role Phone Yannick Umanzor DO Primary [...] 0.03 mg/spray spray, metered, non-aerosol Administer 1 [place] in each nostril 2 times daily. 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 Gender Identity Not on file Sexual Orientation Not on file Last Filed Vital Signs Vital Sign Reading Time Taken Comments Blood Pressure 126/69 08/02/2024 1:21 PM RESIDENTIAL REAL ESTATE SALES MANAGER Pulse 77 08/02/2024 1:21 PM RESIDENTIAL REAL ESTATE SALES MANAGER Temperature 36.8 C (98.2 F) 08/02/2024 1:21 PM RESIDENTIAL REAL ESTATE SALES MANAGER Respiratory Rate 15 08/02/2024 1:21 PM RESIDENTIAL REAL ESTATE SALES MANAGER Oxygen Saturation 94% 08/02/2024 1:2 1 PM RESIDENTIAL REAL ESTATE SALES MANAGER Inhaled Oxygen Concentration - - Weight 83.3 kg (183 lb 9.6 oz) 08/02/2024 1:21 PM RESIDENTIAL REAL ESTATE SALES MANAGER patient verbally confimed that she is trying to lose weight Height 162.6 cm (5' 4) 06/01/2022 8:50 AM CDT Body Mass Index 31.51 06/01/2022 8:50 AM CDT Plan of Treatment Upcoming Encounters Date Type Department Care Team (Late st Contact Info) Description 09/05/2025 10:00 AM RESIDENTIAL REAL ESTATE SALES MANAGER Office Visit [facility] Oncology and Hematology - [place] [address] [facility] [address] [place] [address] Saul Perez MD [address] [facility] [address] [place] [address] Health Maintenance Due Date Last Done Comments Pre-Diabetes and Diabetes Screening 1955 DTAP/TDAP/TD VACCINES (1 - Tdap) 1975 FIT-DNA Q 3 years 2001 FIT/FOBT Q 1 year 2001 Flex Sig/CT Colonography Q 5 years 2001 PNEUMOCOCCAL VACCINE 50+ YEA RS (1 of 1 - PCV) 2006 ZOSTER VACCINE (1 of 2) 2006 BREAST CANCER SCREENING 05/15/2022 05/15/20, 05/15/2021, 09/25/2013, Additional history exists INFLUENZA VACCINE (#1) 2025 OSTEOPOROSIS SCREENING 05/15/2026 05/15/2021 COLORECTAL SCREENING 07/22/2030 07/22/2020 Colorectal Cancer Screening 07/22/2030 RSV VACCINE (60+ or ) (1 - 1-dose 75+ series) 2031 Insurance MEDICARE PART A AND B [facility] BENEFIT PLANS MEDICARE PART A AND B [facility] BENEFIT PLANS Advance Directives For more information, please contact: [phone] * Full Code (Latest Code Status on File) Date Activated Date Inactivated Comments 08/27/2014 7:51 AM 08/28/2014 8:33 AM * Full Code Date Activated Date Inactivated Comments 08/27/2014 5:59 AM 08/27/2014 7:51 AM Care Teams Patrol Police Sergeant Relationship Specialty Start Date End Date Yannick Umanzor DO [address] [id number] PCP - General Internal Medicine 11/07/21
--- OUTSIDE RECORDS SUMMARY | 2025-03-04 17:59 | XMS_ITS | Clinical Summary ---
Author Organization [facility] Address [address] [place] [id number] Phone Care Team Providers Care Refrigerated Cargo Clerk Name Role Phone JavierYannick price Primary Care Provider [phone] Allergies Active Allergy Reactions Criticality Noted Date [...] Act haris ergocalciferol (VITAMIN D-2) 1.25 MG (62251 UT) capsule 12/12/2019 Active Carbonyl Iron 45 [...] / Low and Medium Risk (1 of 2 - PCV) 2006 Influenza Vaccine (#1) 2025 Insurance [employer] MEDICARE Care Teams Refrigerated Cargo Clerk Relationship Specialty Start Date End Date Yannick Umanzor DO [address] [place] [id number] PCP - General Internal Medicine 01/27/21
--- OUTSIDE RECORDS SUMMARY | 2025-03-04 17:59 | XMS_ITS | Clinical Summary ---
Author Organization [facility] Care Team Providers Care Wet Process Miller Name Role Phone Unavailable Primary Care Provider [...]
--- OUTSIDE RECORDS SUMMARY | 2025-03-04 17:59 | XMS_ITS | Clinical Summary ---
Author Organization [facility] Address [facility] [place] [address] Care Team Providers Care Provider Contracting Consultant Name Role Phone Unavailable Primary Care Provider Unavailabl e Encounters Date Type Department Care Team Description 02/07/2025 6:35 AM CDT - 02/07/2025 11:59 PM CDT Hospital Encounter [facility] [address] [place], [place] [id number] Nikolas Arnett DO Discharge Disposition: Home or Self Care (Routine Discharge) 02/07/2025 Orders Only [facility] [address] [place] [address] Nikolas Arnett DO from Last 3 Months [...] 2006 Zoster Vaccines (1 of 2) 2006 Annual Medicare Wellness Visit 2021 Dexa Scan (General) 2021 COVID-19 Vaccine ( [...] COMPREHENSIVE METABOLIC PANEL (02/07/2025 5:25 AM CDT) [facility] GLUCOSE 111(H) 70 - 99 MG/DL 02/07/2025 9:46 AM CDT [facility] BUN 39(H) 7 - 18 MG/DL 02/07/2025 9:46 AM CDT [facility] CREATININE S/P/B 3.56(H) 0.50 - 1.20 MG/DL 02/07/2025 9:46 AM CDT [facility] SODIUM S/P/B 137 136 - 145 MMOL/L 02/07/2025 9:46 AM CDT [facility] POTASSIUM S/P/B 3.0(LL) 3.5 - 5.1 MMOL/L 02/07/2025 9:46 AM CDT [facility] Comment: ALERT VALUE CALLED TO AND READ BACK BY: CHRISTIAN ROTH @ [facility] [id number] AJD CHLORIDE S/P/B 95(L) 100 - 108 MMOL/L 02/07/2025 9:46 AM CDT [facility] CO2 26.8 21.0 - 32.0 MMOL/L 02/07/2025 9:46 AM CDT [facility] CALCIUM S/P/B 8.9 8.5 - 10.1 MG/DL 02/07/2025 9:46 AM CDT [facility] BILIRUBIN TOTAL S/P/B 2.6(H) 0.2 - 1.2 MG/DL 02/07/2025 9:46 AM CDT [facility] Comment: THIS ASSAY IS NOT RECOMMENDED FOR PATIENTS UNDERGOING TREATMENT WITH ELTROMBOPAG DUE TO THE POTENTIAL FOR FALSELY ELEVATED RESULTS. TOTAL PROTEIN S/P/B 6.4 6.4 - 8.2 G/DL 02/07/2025 9:46 AM CDT [facility] ALBUMIN S/P/B 2.8(L) 3.4 - 5.0 G/DL 02/07/2025 9:46 AM CDT [facility] AST 65(H) 15 - 37 U/L 02/07/2025 9:46 AM CDT [facility] ALT 44 14 - 55 U/L 02/07/2025 9:46 AM CDT [facility] ALKALINE PHOSPHATASE S/P/B 110 50 - 136 U/L 02/07/2025 9:46 AM CDT [facility] ANION GAP 15.2(H) 5.0 - 15.0 MMOL/L 02/07/2025 9:46 AM CDT [facility] BUN CREATININE RATIO 11.0 6 - 26 02/07/2025 9:46 AM CDT [facility] A/G RATIO 0.8(L) 1.0 - 2.5 RATIO 02/07/2025 9:46 AM CDT [facility] GFR ESTIMATE 13(L) >90 ML/MIN/1.7 3 M2 02/07/2025 9:46 AM CDT [facility] Comment: NOTE: eGFR is not calculated for patients <18 years of age. This is an estimated GFR calculation using the new CKD EPI creatinine equation without race and so does not require a correction factor for race. This estimated GFR should not be used for calculating drug doses. 02/07/2025 5:25 AM CDT Nikolas Arnett DO LABORATORY Final Result [address] [place] [address], [place] * (ABNORMAL) CBC W/DIFF AUTOMATED (02/07/2025 5:25 AM CDT) [facility] WBC 16.35(H) 4.50 - 11.00 x10'3/uL 02/07/2025 7:20 AM CDT [facility] RBC 4.01 4.00 - 5.20 x10'6/uL 02/07/2025 7:20 AM CDT [facility] HGB 12.7 12.0 - 16.0 G/DL 02/07/2025 7:20 AM CDT [facility] HCT 35.6(L) 38.0 - 48.0 % 02/07/2025 7:20 AM CDT [facility] MCV 88.8 80.0 - 100.0 FL 02/07/2025 7:20 AM CDT [facility] MCH 31.7 26.0 - 34.0 PG 02/07/2025 7:20 AM CDT [facility] MCHC 35.7 31.0 - 37.0 G/DL 02/07/2025 7:20 AM CDT [facility] RDW 13.9 11.6 - 14.8 % 02/07/2025 7:20 AM CDT [facility] PLT 278 130 - 400 x10'3/uL 02/07/2025 7:20 AM CDT [facility] MPV 10.8 7.0 - 12.0 FL 02/07/2025 7:20 AM CDT [facility] CBC COMMENT AUTOMATED RBC MORPHOLOGY AND PLATELET EVALUATION NORMAL 02/07/2025 7:20 AM CDT [facility] NEUTROPHILS % 87.8(H) 40.0 - 74.0 % 02/07/2025 7:20 AM CDT [facility] LYMPHOCYTES % 4.3(L) 14.0 - 46.0 % 02/07/2025 7:20 AM CDT [facility] MONOCYTES % 6.4 4.0 - 13.0 % 02/07/2025 7:20 AM CDT [facility] EOSINOPHILS 0.1 0.0 - 7.0 % 02/07/2025 7:20 AM CDT [facility] BASOPHILS 0.2 0.0 - 3.0 % 02/07/2025 7:20 AM CDT [facility] IMMATURE GRANS % 1.2(H) 0.0 - 0.43 % 02/07/2025 7:20 AM CDT [facility] NRBC % 0.7 % 02/07/2025 7:20 AM CDT [facility] ABS. NEUTROPHILS TOTAL 14.36(H) 1.69 - 7.81 x10'3/uL 02/07/2025 7:20 AM CDT [facility] ABS. LYMPHOCYTES 0.71 0.21 - 5.42 x10'3/uL 02/07/2025 7:20 AM CDT [facility] ABS. MONOCYTES 1.04 0.04 - 1.37 x10'3/uL 02/07/2025 7:20 AM CDT [facility] ABS. EOSINOPHILS 0.01 0.00 - 0.68 x10'3/uL 02/07/2025 7:20 AM CDT [facility] ABS. BASOPHILS 0.03 0.00 - 0.08 x10'3/uL 02/07/2025 7:20 AM CDT [facility] ABS. IMMATURE GRANULOCYTES 0.20(H) 0.00 - 0.06 x10'3/uL 02/07/2025 7:20 AM CDT [facility] ABS. NUCLEATED RBC'S 0.11(HH) 0.00 - 0.01 x10'3/uL 02/07/2025 7:20 AM CDT [facility] 02/07/2025 5:25 AM CDT Nikolas Arnett DO LABORATORY Final Result [address] [place] [address], from Last 3 Months Insurance MEDICARE
--- OUTSIDE RECORDS SUMMARY | 2025-03-04 17:59 | XMS_ITS | Encounter Summary ---
Author Organization [facility] Address [address] [place] [address] Phone Care Team Providers Care Fan Balancer Name Role Phone Unavailable Primary Care Provider Unavailabl e Encounter Details Date Type Department Care Team (Late st Contact Info) Description 11/11/2024 Lab Requisition [facility] [address] [place] [address] Nikolas Arnett DO [address] [place] [address] Anemia, unspecified Social History Tobacco Use Types [...] - 12.00 10(3)/mcL 11/11/2024 10:30 AM CDT [facility] RBC 4.49 3.80 - 5.30 10(6)/[facility] 11/11/2024 10:30 AM CDT [facility] HEMOGLOBIN (HGB) 14.4 12.0 - 15.8 g/dL 11/11/2024 10:30 AM CDT [facility] HEMATOCRIT (HCT) 43.5 36.0 - 47.0 % 11/11/2024 10:30 AM CDT [facility] MCV 96.9(H) 82.0 - 96.0 fL 11/11/2024 10:30 AM CDT [facility] MCH 32.1 26.0 - 34.0 pg 11/11/2024 10:30 AM CDT [facility] MCHC 33.1 31.0 - 36.0 g/dL 11/11/2024 10:30 AM CDT [facility] PLATELET COUNT 272 140 - 440 10(3)/[facility] 11/11/2024 10:30 AM CDT [facility] RDW 13.6 11.8 - 15.5 % 11/11/2024 10:30 AM CDT [facility] MPV 9.5(L) 9.7 - 12.4 fL 11/11/2024 10:30 AM CDT [facility] NEUTROPHILS 69.4 47.0 - 73.0 % 11/11/2024 10:30 AM CDT [facility] LYMPHOCYTES 18.4 18.0 - 42.0 % 11/11/2024 10:30 AM CDT [facility] MONOCYTES 9.9 4.0 - 12.0 % 11/11/2024 10:30 AM CDT [facility] EOSINOPHILS 1.7 0.0 - 5.0 % 11/11/2024 10:30 AM CDT [facility] BASOPHILS 0.6 0.0 - 1.0 % 11/11/2024 10:30 AM CDT [facility] ABSOLUTE NEUTROPHILS 7.54 1.60 - 7.70 10(3)/mcL 11/11/2024 10:30 AM CDT [facility] ABSOLUTE LYMPHOCYTES 1.99 1.30 - 3.20 10(3)/[facility] 11/11/2024 10:30 AM CDT [facility] ABSOLUTE MONOCYTES 1.07(H) 0.20 - 1.00 10(3)/[facility] 11/11/2024 10:30 AM CDT [facility] ABSOLUTE EOSINOPHIL 0.18 0.00 - 0.40 10(3)/[facility] 11/11/2024 10:30 AM CDT [facility] ABSOLUTE BASOPHILS 0.06 0.00 - 0.10 10(3)/[facility] 11/11/2024 10:30 AM CDT [facility] NRBC PER 100 WBC 0 11/12/19 10:30 AM CDT [facility] Blood No Phlebotomy Charged / Unknown 11/11/2024 8:30 AM CDT 11/11/2024 10:17 AM CDT Nikolas Arnett DO HEMATOLOGY ORDERABLES Final Resu lt [facility] [place] [address] * (ABNORMAL) CMP (COMPREHENSIVE METABOLIC PANEL) (11/11/2024 8:30 AM CDT) SODIUM 141 136 - 145 mmol/L 11/11/2024 11:03 AM CDT [facility] POTASSIUM 2.8(L) 3.5 - 5.1 mmol/L 11/11/2024 11:03 AM CDT [facility] CHLORIDE 102 98 - 107 mmol/L 11/11/2024 11:03 AM CDT [facility] CO2, VENOUS 24 22 - 30 mmol/L 11/11/2024 11:03 AM CDT [facility] ANION GAP 17.8 <18.0 mmol/L 11/11/2024 11:03 AM CDT [facility] GLUCOSE 98 70 - 99 mg/dL 11/11/2024 11:03 AM [facility] BUN 15 10 - 20 mg/dL 11/11/2024 11:03 AM [facility] CREATININE, BLOOD 1.39(H) 0.60 - 1.00 mg/dL 11/11/2024 11:03 AM [facility] BUN/CREATININE RATIO 11(L) 12 - 20 ratio 11/11/2024 11:03 AM [facility] TOTAL PROTEIN 6.5 6.0 - 8.0 g/dL 11/11/2024 11:03 AM [facility] ALBUMIN 3.5 3.5 - 5.0 g/dL 11/11/2024 11:03 AM [facility] A/G RATIO 1.2 1.0 - 2.2 11/11/2024 11:03 AM [facility] CALCIUM 9.0 8.7 - 10.5 mg/dL 11/11/2024 11:03 AM [facility] T BILI 0.9 0.2 - 1.2 mg/dL 11/11/2024 11:03 AM [facility] SGOT (AST) 68(H) <43 U/L 11/11/2024 11:03 AM [facility] SGPT (ALT) 27 <56 U/L 11/11/2024 11:03 AM [facility] ALKALINE PHOSPHATASE 55 40 - 150 U/L 11/11/2024 11:03 AM [facility] GFR, ESTIMATED 41(L) >=60 11/11/2024 11:03 AM [facility] Comment: Creatinine Clearance is the preferred criteria for selecting drug dose adjustments in renally impaired patients. The GFR is provided as additional pertinent clinical information. GFR is reported in mL/min/1.73 sq m. Calculation based on the Chronic Kidney Disease Epidemiology Collaboration (CKD- EPI) equation refit without adjustment for race. GFR, EST. 46(L) >=60 025 11:03 AM [facility] GFR, EST. NONAFRICAN 38(L) >=60 11/11/2024 11:03 AM CDT [facility] Blood No Phlebotomy Charged / Unknown 11/11/2024 8:30 AM CDT 11/11/2024 10:17 AM CDT us Nikolas Arnett DO CHEMISTRY ORDERABLES Final Resul t [facility] [place] [address] documented in this encounter Visit Diagnoses Diagnosis Anemia, unspecified documented in this encounter
--- OUTSIDE RECORDS SUMMARY | 2025-03-04 17:59 | XMS_ITS | Clinical Summary ---
Author Organization [facility] [employer] Address [address] [place] [address] Care Team Prov[address] Care [address] Oiler Name Role Phone Megan Mcwilliams MD Unavailable Kwame Hathaway MD Unavailable [phone] Yannick Umanzor DO Primary Care Provider [phone] [facility],non-owned Affiliates and Associated Physician Practices is amultiple site organization consisting of ambulatory clinics and hospital sitesin [place], [place], [place] and [place]. This disclosure is being madepursuant to the Care Everywhere program and may not contain all information available regarding this patient. Last updated 18.[facility] Allergies Active Allergy Reactions Criticality Noted [...] MULTIDOSE 0.05 % ophthalmic suspension 7 Active DULoxetine (CYMBALTA) 60 MG capsule 7 Active sertraline (ZOLOFT) 100 MG tablet Take 100 mg by mouth once daily Active acetaminophen (Tylenol) 500 MG tablet Take 2 (two) tablets by mouth 3 times daily Maximum allowable Acetaminophen amount = 4 Grams (4000 mg) / 24 hours. 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 No MyChart--Pending-DLM -MS/01/18-Left vglyobp-[id number]) 01/11/2025 4:47 AM CDT - 01/12/2025 9:00 PM CDT Hospital Encounter [facility] 5S ACUTE [address] [place] [id number] Nicky Anderson MD Wojcik, Brandon M, MD [...] and heating? Not hard at all 01/12/2025 [place] [facility] - Occupational Stress [...] any time in the past 12 m [facility], were you homeless or living in a intermediate (including now)? No 01/12/2025 Comments No Sex [...] 01/11/2025 6:34 PM CDT Plan of Treatment Health Maintenance [...] 60-74 years 1-dose series) 2016 COVID-19 VACCINE (2023- season) 2024 06/10/2024, 06/14/2023, 09/05/2022, Additional history exists INFLUENZA VACCINE (#1) 2025 06/10/2024, 2017 SCREENING FOR DIABETES 01/13/2028 , 01/12/2025, 01/11/2025, Additional history exists COLON MONITORING 07/22/2030 07/22/2020, , 07/22/2020, Additional history exists COLONOSCOPY - COLON CA SCREENING 07/22/2030 07/22/2020, 07/22/2020, 07/22/2020, Additional history exists Colorectal Cancer Screening 07/22/2030 MAMMOGRAM Discontinued 09/25/2013, 09/23/2012 HEPATITIS B VACCINE Aged Out No longe [...] this topic Medical Devices Implanted Type Area Technical Translator Device Identifier Shelf Expiration Date Model / Serial / Lot Sys Ureth Supp Obtryx Midurethral Trnstr Implanted:Qty: 1 on 2017 by Kwame Hathaway MD at [facility] [employer] Scimed 01/11/2020 [id number] / / [id number] Graft Tissue Xenform Ftl Bvn Drml Mtrx 7 Implanted:Qty: 1 on 2017 by Kwame Hathaway MD at [facility] [employer] Microvasive 08/22/2019 [id number] / / [id number] Procedures Procedure Name Priority Date/Time Associated Diagnosis [...] ENDOSCOPY, COLON, SCREENING Routine 07/22/2020 10:36 AM 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 BUN 18 7 - 26 mg/dL 01/12/2025 7:37 PM [facility] Creatinine 1.30(H) 0.56 - 0.96 mg/dL 01/12/2025 7:37 PM [facility] Sodium 139 136 - 145 mmol/L 01/12/2025 7:37 PM [facility] Potassium 3.4(L) 3.5 - 4.5 mmol/L 01/12/2025 7:37 PM [facility] Chloride 103 98 - 107 mmol/L 01/12/2025 7:37 PM [facility] CO2 28 22 - 29 mmol/L 01/12/2025 7:37 PM [facility] Glucose 92 70 - 99 mg/dL 01/12/2025 7:37 PM [facility] Calcium 8.8 8.4 - 10.2 mg/dL 01/12/2025 7:37 PM [facility] Anion Gap 8 6 - 16 01/12/2025 7:37 PM [facility] BUN/Creatinine Ratio 14 7 - 23 01/12/2025 7:37 PM [facility] Osmolality Calculated 290 275 - 295 mOsm/kg 01/12/2025 7:37 PM [facility] eGFR by CKD-EPI 45(L) >=90 mL/min/1.7 3 m2 01/12/2025 7:37 PM [facility] Blood BLOOD SPECIMEN / Unknown Lab Venipuncture / Unknown 01/12/2025 2:42 PM CDT 01/12/2025 7:07 PM CDT us Key Joseph STRETCHER AND DRIER-ORNAMENTAL PLASTER STICKER LAB - CHEMISTRY ORDERABLE S Final Result [facility] [address] [place] [address], [facility] [phone] * CARDIAC EKG ORDER (01/12/2025 10:48 AM CDT) Narrative 01/12/2025 10:48 AM CDT Ordered by an unspecified provider. us Scanned Document CARDIAC SERVICES ORDERABLES Fin al Result * BLOOD TYPE VERIFICATION (01/12/2025 8:51 AM CDT) ABO Rh A POS 01/12/2025 9:3 2 AM CDT [facility] BLOOD BANK LAB Blood Bank BLOOD SPECIMEN / Unknown Lab Venipuncture / Unknown 01/12/2025 8:51 AM CDT 01/12/2025 8:56 AM CDT us Nicky Anderson MD LAB - BLOOD BANK ORDERABLES Gaby gilliam Result [facility] BLOOD BANK LAB [address] [place] [address], [facility] [phone] * (ABNORMAL) CBC W AUTO DIFFERENTIAL (01/12/2025 3:10 AM CDT) Only the most recent of2 resultswithin the time period is included. Pathologist [facility] WBC 11.6(H) 4.0 - 10.7 x10E9/L 01/12/2025 3:56 AM [facility] RBC Count 3.84(L) 3.90 - 5.20 x10E12/L 01/12/2025 3:56 AM [facility] Hemoglobin 12.1 11.9 - 15.8 g/dL 01/12/2025 3:56 AM [facility] Hematocrit 36.2 34.8 - 46.1 % 01/12/2025 3:56 AM [facility] MCV 94.3 80.0 - 98.0 fL 01/12/2025 3:56 AM [facility] MCH 31.5 26.7 - 33.6 pg 01/12/2025 3:56 AM [facility] MCHC 33.4 31.7 - 36.3 g/dL 01/12/2025 3:56 AM [facility] RDW-CV 13.8 11.3 - 14.8 % 01/12/2025 3:56 AM [facility] Platelet Count 245 150 - 420 x10E9/L 01/12/2025 3:56 AM [facility] MPV 9.8 7.8 - 11.4 fL 01/12/2025 3:56 AM [facility] Neutrophil % 77.3(H) 41.0 - 74.0 % 01/12/2025 3:56 AM [facility] Lymphocyte % 13.5(L) 17.0 - 47.0 % 01/12/2025 3:56 AM [facility] Monocyte % 8.2 3.0 - 11.0 % 01/12/2025 3:56 AM [facility] Eosinophil % 0.1 0.0 - 7.0 % 01/12/2025 3:56 AM [facility] Basophil % 0.3 0.0 - 1.6 % 01/12/2025 3:56 AM [facility] Immature Granulocytes % 0.6 0.0 - 1.0 % 01/12/2025 3:56 AM [facility] Neutrophil Absolute 8.92(H) 1.60 - 7.50 x10E9/L 01/12/2025 3:56 AM [facility] Lymphocyte Absolute 1.56 1.00 - 4.40 x10E9/L 01/12/2025 3:56 AM [facility] Monocyte Absolute 0.95 0.15 - 1.00 x10E9/L 01/12/2025 3:56 AM [facility] Eosinophil Absolute 0.01 0.00 - 0.60 x10E9/L 01/12/2025 3:56 AM [facility] Basophil Absolute 0.04 0.00 - 0.13 x10E9/L 01/12/2025 3:56 AM [facility] Blood BLOOD SPECIMEN / Unknown Lab Venipuncture / Unknown 01/12/2025 3:10 AM CDT 01/12/2025 3:42 AM CDT us Julián Reeder MD LAB - HEMATOLOGY ORDERABLES Final Result [facility] [address] [place] [address], [facility] [phone] * PHOSPHORUS BLOOD (01/12/2025 3:09 AM CDT) Only the most recent of2 resultswithin the time period is included. Phosphorus 3.8 2.9 - 5.1 mg/dL 01/12/2025 4:17 AM CDT [facility] Blood BLOOD SPECIMEN / Unknown Lab Venipuncture / Unknown 01/12/2025 3:09 AM CDT 01/12/2025 3:43 AM CDT Julián Reeder MD LAB - CHEMISTRY ORDERABLES F inal Result Performing Organization Address [facility]/ZIP Co de Phone Number [address] [address], [facility] [phone] * MAGNESIUM BLOOD (01/12/2025 3:09 AM CDT) Only the most recent of2 resultswithin the time period is included. Magnesium 2.2 1.6 - 2.6 mg/dL 01/12/2025 4:17 AM CDT [facility] Blood BLOOD SPECIMEN / Unknown Lab Venipuncture / Unknown 01/12/2025 3:09 AM CDT 01/12/2025 3:43 AM CDT Julián Reeder MD LAB - CHEMISTRY ORDERABLES F inal Result Performing Organization Address [facility] Co de Phone Number [address] [address], [place] [phone] * CT Head Wo Contrast (01/11/2025 10:30 [...] identified. Report dictated by Maxime Franks MD, (development vice president). ILita MD have personally reviewed and interpreted this examination/study. > Interpreting Provider: Lita Weaver MD on 01/11/2025 5:50 PM Narrative 01/11/2025 5:50 PM CDT PROCEDURE: CT HEAD WO CONTRAST, DATE/TIME OF EXAM: 01/11/2025 10:31 AM, LOCATION [facility] INDICATION: T14.90XA: Trauma ADDITIONAL CLINICAL INFORMATION: Ordering [...] DATE/TIME OF EXAM: 01/11/2025 10:31 AM, LOCATION [facility] INDICATION: T14.90XA: Trauma ADDITIONAL CLINICAL INFORMATION: Ordering [...] identified. Report dictated by Maxime Franks MD, (development vice president). I, Lita Weaver MD have personally reviewed and interpreted this examination/study. > Interpreting Provider: Lita Weaver MD on 01/11/2025 5:50 PM us Jose Miguel Ratliff MD CT ORDERABLES Final Resul t * EKG 12-Lead (01/11/2025 6:39 AM CDT) Ventricular Rate 71 BPM H MUSE QRS Duration ms 92 ms H MUSE Q-T Interval ms 336 ms [facility] MUSE QTC Calculation (Bezet) 365 ms [facility] MUSE Calculated R Deshler 15 degrees [facility] Calculated T Deshler -174 degrees [facility] M[facility] Interpretation EKG Likely Sinus rhythm but very poor baseline and artifacts BASELINE ARTIFACT POOR DATA QUALITY, INTERPRETATION MAY BE ADVERSELY AFFECTED NONSPECIFIC ST AND T WAVE ABNORMALITY ABNORMAL ECG NO PREVIOUS ECGS AVAILABLE Confirmed by AIDEE MURILLO MD ([id number]) on 01/14/2025 11:25:11 PM [facility] MUSE 01/11/2025 6:3 9 AM CDT 01/14/2025 11:25 PM CDT us [...] MRI. > Dictated by Greg Dial MD, (development vice president). I, Jose Angel Olivas MD have personally reviewed and interpreted this examination/study. > Interpreting Provider: Jose Angel Olivas MD on 01/11/2025 8:08 AM Narrative 01/11/2025 8:08 AM CDT PROCEDURE: CT CHEST ABDOMEN PELVIS W CONT, DATE/TIME OF EXAM: 01/11/2025 5:51 AM, LOCATION [facility] INDICATION: T14.90XA: Trauma COMPARISON: None. TECHNIQUE: CT [...] CONT, DATE/TIME OF EXAM:01/11/2025 5:51 AM, LOCATION [facility] INDICATION: T14.90XA: Trauma COMPARISON: None. TECHNIQUE: CT [...] MRI. > Dictated by Greg Dial MD, (development vice president). Jose Angel Luciano MD have personally reviewed [...] pelvis. Report dictated by Jos Silverman MD, (Jewel Sawyer). Lilo Luciano MD have personally reviewed and interpreted this examination/study. > Interpreting Provider: Lilo David MD on 01/11/2025 3:57 PM Narrative 01/11/2025 3:57 PM CDT PROCEDURE: CT HEAD WO CONTRAST, CT CERVICAL SPINE WO CONTRAST, CT LUMBAR SPINE WO CONTRAST, CT THORACIC SPINE WO CONTRAST, DATE/TIME OF EXAM: 01/11/2025 5:51 AM, LOCATION [facility] INDICATION: T14.90XA: Trauma EXAMINATION: 1.Computed tomography (CT) [...] DATE/TIME OF EXAM: 01/11/2025 5:51 AM, LOCATION [facility] INDICATION: T14.90XA: Trauma EXAMINATION: 1.Computed tomography (CT) [...] subdural hematoma (series 8, image 31 and [id number], image 12). Small areas of encephalomalacia within [...] pelvis. Report dictated by Jos Silverman MD, (Jewel Sawyer). Lilo Luciano MD have personally reviewed and [...] pelvis. Report dictated by Jos Silverman MD, (Jewel Sawyer). I, Lilo David MD have personally reviewed and interpreted this examination/study. > Interpreting Provider: Lilo David MD on 01/11/2025 3:57 PM Narrative 01/11/2025 3:57 PM CDT PROCEDURE: CT HEAD WO CONTRAST, CT CERVICAL SPINE WO CONTRAST, CT LUMBAR SPINE WO CONTRAST, CT THORACIC SPINE WO CONTRAST, DATE/TIME OF EXAM: 01/11/2025 5:51 AM, LOCATION [facility] INDICATION: T14.90XA: Trauma EXAMINATION: 1.Computed tomography (CT) [...] DATE/TIME OF EXAM: 01/11/2025 5:51 AM, LOCATION [facility] INDICATION: T14.90XA: Trauma EXAMINATION: 1.Computed tomography (CT) [...] subdural hematoma (series 8, image 31 and [id number], image 12). Small areas of encephalomalacia within [...] pelvis. Report dictated by Jos Silverman MD, (Jewel Sawyer). I, iLlo David MD have personally reviewed and interpretedthis [...] pelvis. Report dictated by Jos Silverman MD, (Jewel Sawyer). ILilo MD have personally reviewed and interpreted this examination/study. > Interpreting Provider: Lilo David MD on 01/11/2025 3:57 PM Narrative 01/11/2025 3:57 PM CDT PROCEDURE: CT HEAD WO CONTRAST, CT CERVICAL SPINE WO CONTRAST, CT LUMBAR SPINE WO CONTRAST, CT THORACIC SPINE WO CONTRAST, DATE/TIME OF EXAM: 01/11/2025 5:51 AM, LOCATION [facility] INDICATION: T14.90XA: Trauma EXAMINATION: 1.Computed tomography (CT) [...] DATE/TIME OF EXAM: 01/11/2025 5:51 AM, LOCATION [facility] INDICATION: T14.90XA: Trauma EXAMINATION: 1.Computed tomography (CT) [...] subdural hematoma (series 8, image 31 and [id number], image 12). Small areas of encephalomalacia within [...] pelvis. Report dictated by Jos Silverman MD, (Jewel Sawyer). I, Lilo Daivd MD have personally reviewed and interpretedthis examination/study. > Interpreting Provider: Lilo David MD on 01/11/2025 3:57 PM us Jose Miguel Ratliff MD CT ORDERABLES Final Resul t * (ABNORMAL) TEG 6 GLOBAL HEMOSTASIS W/ LYSIS (01/11/2025 5:26 AM CDT) Citrated Kaolin R (Reaction Time) 4.2(L) 4.6 - 9.1 min 01/11/2025 6:30 AM [facility] Comment:CK R result below no rmal range. Consistent with hypercoagulable clotting factors. Citrated Kaolin LY30 (Lysis) 0.0 0.0 - 2.6 % 01/11/2025 6:30 AM [facility] Citrated Functional Fibrinogen MA (Max Amplitude) 23.7 15.0 - 32.0 mm 01/11/2025 6:30 AM [facility] Citrated RapidTEG MA (Max Amplitude) 66.1 52.0 - 70.0 mm 01/11/2025 6:30 AM CDT [facility] Blood BLOOD SPECIMEN / Unknown Venipuncture / Unknown 01/11/2025 5:26 AM CDT 01/11/2025 5:32 AM CDT us Jose Miguel Ratliff MD LAB - HEMATOLOGY ORDERABLES Final Result Performing Organization Address City/[facility] Co de Phone Number [address] [address], [facility] [phone] * (ABNORMAL) TEG 6S PLATELET MAPPING (01/11/2025 5:26 AM CDT) TEGPLM (Max Amplitude) Koalin 65.4 53.0 - 68.0 mm 01/11/2025 6:33 AM CDT [facility] TEGPLM (Max Amplitude) ACTF 16.3 2.0 - 19.0 mm 01/11/2025 6:33 AM T [facility] TEGPLM (Max Amplitude) ADP 48.5 45.0 - 69.0 mm 01/11/2025 6:33 AM T [facility] TEGPLM (Max Amplitude) AA 54.5 51.0 - 71.0 mm 01/11/2025 6:33 AM [facility] TEGPLM %Inhibition ADP 34.4(H) 0.0 - 17.0 % 01/11/2025 6:33 AM T [facility] TEGPLM %Inhibition AA 22.2(H) 0.0 - 11.0 % 01/11/2025 6:33 AM T [facility] TEGPLM %Aggregation ADP 65.6(L) 83.0 - 100.0 % 01/11/2025 6:33 AM T [facility] TEGPLM % Aggregation AA 77.8(L) 89.0 - 100.0 % 01/11/2025 6:33 AM T [facility] Blood BLOOD SPECIMEN / Unknown Venipuncture / Unknown 01/11/2025 5:26 AM CDT 01/11/2025 5:32 AM CDT us Jose Miguel Ratliff MD LAB - HEMATOLOGY ORDERABLES Final Result Performing Organization Address City/[facility]/ZIP Co de Phone Number [facility] [address] [place] [address], [place] [phone] * PT-INR [facility] (01/11/2025 5:26 AM CDT) [facility] PT 13.5 12.1 - 14.8 Seconds 01/11/2025 5:50 AM CDT [facility] LABORATORY [facility] INR 1.1 See Comment 01/11/2025 5:50 AM CDT [facility] Comment:The suggested therap eutic range [...] ORDERABLE S Final Result Performing Organization Address [facility] Co de Phone Number [facility] [address] [place] [address], [place] [phone] * TYPE + SCREEN PANEL (01/11/2025 5:26 AM CDT) [facility] Antibody Screen NEG 6:11 AM CDT [facility] BLOOD BANK LAB ABO Rh A POS 01/11/2025 6:11 AM CDT [facility] BLOOD BANK LAB Blood Bank BLOOD SPECIMEN / Unknown Venipuncture / Unknown 01/11/2025 5:26 AM CDT 01/11/2025 5:33 AM CDT us Jose Miguel Ratliff MD LAB - BLOOD BANK ORDERABLES Final Result Performing Organization Address [facility]/ZIP Co de Phone Number [facility] BLOOD BANK LAB [address] [place] [address], [place] [phone] * ALCOHOL ETHYL BLOOD (01/11/2025 5:26 AM CDT) Ethanol (mg/dL) <10 <10 mg/dL 5:58 AM CDT [facility] Ethanol Calculated (g/dL) <0.010 <=0.010 g/dL 01/11/2025 5:58 AM CDT [facility] Blood BLOOD SPECIMEN / Unknown Venipuncture / Unknown 01/11/2025 5:26 AM CDT 01/11/2025 5:29 AM CDT Narrative [facility] - 01/11/2025 5:58 AM CDT Ethanol Interp <10: None Detected. Depression of TRUMPET PLAYER: >100 mg/dl Potentially Critical: >250 mg/dl Potentially [...] MD LAB - CHEMISTRY ORDERABLES Final Result [facility] [address] [place] [address], [facility] [phone] * XR CHEST 1VW PORTABLE (01/11/2025 4:55 AM CDT) Anatomical Region Laterality Modality Chest Digital Radiogra phy 01/11/2025 5:29 AM CDT Narrative 01/11/2025 9:49 AM CDT PROCEDURE: XR CHEST 1VW PORTABLE, DATE/TIME OF EXAM: 01/11/2025 4:55 AM, LOCATION [facility] INDICATION: T14.90XA: Trauma COMPARISON: None. TECHNIQUE: Frontal radiograph of the chest. FINDINGS/IMPRESSION: Low lung volumes with bronchovascular crowding. There is no focal consolidation, pleural effusion, or pneumothorax. The cardiomediastinal silhouette is normal. The visible bony thorax is intact. Surgical material is seen at the epigastrium. Report dictated by Jos Silverman MD, (Jewel Sawyer). I, Barb Summers MD have personally reviewed and interpreted this examination/study. > Interpreting Provider: Barb Summers MD on 01/11/2025 9:49 AM Procedure Note aBrb Summers MD - 01/11/2025 PROCEDURE: XR CHEST 1VW PORTABLE, DATE/TIME OF EXAM: 01/11/2025 4:55AM, LOCATION [facility] INDICATION: T14.90XA: Trauma COMPARISON: None. TECHNIQUE: Frontal radiograph of the chest. FINDINGS/IMPRESSION: Low lung volumes with bronchovascular crowding. There is no focal consolidation, pleural effusion, or pneumothorax. The cardiomediastinal silhouette is normal. The visible bony thorax is intact. Surgicalmaterial is seen at the epigastrium. Report dictated by Jos Silverman MD, (Jewel Sawyer). Barb Luciano MD have personally reviewed and [...] Report dictated by Jos Silverman MD, MD (development vice president). Barb Luciano MD have personally reviewed and interpreted this examination/study. > Interpreting Provider: Barb Summers MD on 01/11/2025 9:47 AM Narrative 01/11/2025 9:47 AM CDT PROCEDURE: XR PELVIS 1 OR 2VW, DATE/TIME OF EXAM: 01/11/2025 4:55 AM, LOCATION [facility] INDICATION: T14.90XA: Trauma COMPARISON: None. FINDINGS: Partially [...] DATE/TIME OF EXAM: 01/11/2025 4:55 AM, LOCATION [facility] INDICATION: T14.90XA: Trauma COMPARISON: None. FINDINGS: Partially visualized posterior fusion hardware of the lumbar spine with interbody fusion devices. No acute fracture is identified. The femoral heads appear well-seated within their respective acetabula. The pubic symphysis is intact. Bone density and texture are normal. The sacroiliac joints are normal. IMPRESSION: No acute fracture identified. Report dictated by Jos Silverman MD, (development vice president). I, Barb Summers MD have personally reviewed and interpreted this examination/study. 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 Procedure Code(s): --- Professional --- 31716, Colonoscopy, flexible; with removal of tumor(s), polyp(s), or other lesion(s) by snare technique 32320, Colonoscopy, flexible; with directed submucosal injection(s), any substance 99212, 59, Colonoscopy, flexible; with biopsy, single or multiple --- Technical --- 52074, Colonoscopy, flexible; with removal of tumor(s), polyp(s), or other lesion(s) by snare technique 90709, Colonoscopy, flexible; with directed submucosal injection(s), any substance 10062, 59, Colonoscopy, flexible; with biopsy, single or [...] neoplasm of digestive organs CPT copyright 2017 [employer]. All rights reserved. The codes documented in this report are preliminary and upon cloth winding supervisor review may be revised to meet current compliance requirements. Damien Green MD 07/22/2020 12:00:12 PM This report has been signed electronically. Number of Addenda: 0 Note Initiated On: 07/22/2020 10:36 AM [facility] ENDOSCOPY 07/22/2020 10:3 6 AM DIGITAL MARKETING EXECUTIVE Damien Green MD GI PROCEDURE ORDERABLES Edited Result - Final [facility] ENDOSCOPY from Last 3 Months or Most Recently Relevant to Health Maintenance Insurance [employer] [facility] Address: [facility] [id number] [place] [address] MEDICARE Advance Directives * Full Code (Latest Code Status on File) Date Activated Date Inactivated Comments 01/11/2025 11:15 AM 01/12/2025 10:54 PM * Full Code Date Activated Date Inactivated Comments 2017 12:04 PM 04/08/2017 5:[address]iler Relationship Specialty Start Date End Date Yannick Umanzor DO [address] [place] [address] PCP - General Internal Medicine 01/19/25 Megan Mcwilliams MD [address] [address] 02/26/17 Kwame Hathaway MD [address] [facility] [address] [place] [address] Beauty Counselor Obstetrics and Gynecology 05/20/17
--- OUTSIDE RECORDS SUMMARY | 2025-03-04 18:00 | XMS_ITS | Patient Health Record ---
Author Organization [facility] Address [address] [place] [phone] Care Team Providers [employer] Professor Name Role Phone KILEY WARD Primary Care Provider Christel David Unavailable [phone] Maribel Sarah Unavailable [phone] Tracy Ramachandran Unavailable [phone] Allergies Allergen (clinical drug ingredient) Drug/Non Drug Allergy documented on EMR Reaction Allergy Type Onset Date Status acyclovir Acyclovir Unknown Drug Allergy Active Iodine Unknown Drug Allergy Active omeprazole Omeprazole Unknown Drug Allergy Activ e Results Component Value Reference Range Notes CBC Reviewed date:11/13/2024 09:36:46 AM Interpretation: Performing Lab: Notes/Report: Comp. Metabolic Panel (14) Reviewed date:11/13/2024 09:37:07 AM Interpretation: Performing Lab: Notes/Report: Basic Metabolic Panel (8) Reviewed date:11/21/2024 11:36:58 AM Interpretation: Performing Lab: Notes/Report: Potassium, Serum Reviewed date:11/28/2024 11:32:00 AM Interpretation: Performing Lab: Notes/Report: CBC With Differential/Platel et Reviewed date:12/27/2024 09:06:18 AM Interpretation: Performing Lab: Notes/Report: Basic Metabolic Panel (8) Reviewed date:12/27/2024 09:06:40 AM Interpretation: Performing Lab: Notes/Report: Vitamin B12 Reviewed date:01/11/2025 11:51:32 AM Interpretation: Performing Lab: Notes/Report: Vitamin D, 25-Hydroxy Reviewed date:01/11/2025 11:52:06 AM Interpretation: Performing Lab: Notes/Report: Urine Culture and Sensitivit y Reviewed date:01/25/2025 10:45:45 AM Interpretation: Performing Lab: Notes/Report: Reason For Referral Reason Increased shakes/mario mors Diagnosis 1 Tremor (R25.1) Referral Organization [facility] Referring Provider First Name Maribel Referring Provider Last Name Tyrel Referred Organization [facility] Referred Address [address] [facility] ,[place], [place],[address], Referred Provider Specialty Neurology General Notes Eryn Tan 09/2024 10:16:18 AM CDT >Appointment made, unable to be seen for 3 months Referral Priority Routine Medications Medication SIG (Take, Route, Frequency, Duration) Notes Start Date End Date Status DULoxetine HCl 60 MG Capsule Delayed Release Particles 1 capsule Orally twice daily Active Fiber Adult Gummies 2 GM Tablet Chewable 2 gummies Orally daily As needed Active Vitamin C 500 MG Capsule 2 tablets Orall y once daily Active MiraLax 17 GM/SCOOP Powder 1 scoop mixed with 8 ounces of fluid Orally Once a day As needed Active Aspirin Adult Low Dose 81 MG Tablet Delayed Release 1 tablet Orally Once a day Active Refresh 1.4-0.6 % Solution 1 drop as nee ded Ophthalmic twice a day Active Wegovy 1 MG/0.5ML Solution Auto-injector 1 mg Subcutaneous weekly ON WEDNESDAY Active Albuterol Sulfate 108 (90 Base) MCG/ACT Aerosol Powder Breath Activated 1-2 puff as needed Inhalation 4 times a day Active Calmoseptine 0.44-20.6 % Ointment thin layer Externally As needed for redness Active Sertraline HCl 100 MG Tablet 1 tablet Or ally Once a day Active Tyrvaya 0.03 MG/ACT Solution 1 spray in each nostril Nasally Twice a day Active Acetaminophen 500 MG Tablet 2 tablet as needed Orally TID DO NOT EXCEED 4000 MG IN 24 HOURS Active HYDROcodone-Acetaminophen 10-325 MG Tablet 1 tablet as needed Orally every 6 hours; Duration: 30 days 01/23/2025 Active lamoTRIgine 200 MG Tablet 1 tablet Orall y twice daily Active LORazepam 2 MG Tablet 1 tablet Orally 3 times a day; Duration: 30 days 01/23/2025 Active oxyBUTYnin Chloride 10 MG Tablet Extended Release one tablet Orally once daily Active Senna 8.6 MG Tablet 1 tablet Orally Once a day Active hydroCHLOROthiazide 12.5 MG Tablet 1 tablet in the morning Orally Once a day Active Slow Fe 45 MG Tablet Extende d Release 1 tablet Orally daily Active Social History Tobacco Use: Social History Observation Description Date Details (start date - stop date) Former Smoker NA - NA Social History Drug/Alcohol: Social Info Question Answer Notes Drugs Have you used drugs other than those for medical reasons in the past 12 months? No AUDIT-C (Standard) Did you have a drink containing alcohol in the past year? No Points 0 Interpretation Negative Tobacco Use: Social Info Question Answer Notes Tobacco Control (Standard) Tobacco use: Former smoker Problems Problem Type SNOMED Code ICD Code Onset Dates Problem Status W/U Status Risk Notes Problem Anemia (411370886) Anemia, unspecified (D64.9) Active confirmed Problem Vitamin D deficiency (15685220) Vitamin D deficiency, unspecified (E55.9) Active confirmed Problem Obesity (707020717) Obesity, unspecified (E66.9) Active confirmed Problem Epilepsy (16528166) Epilepsy, unspecified, not intractable, without status epilepticus (G40.909) Active confirmed Problem Insomnia (955282104) Insomnia, unspecified (G47.00) Active confirmed Problem Essential hypertension (26833589) Essential (primary) hypertension (I10) Active confirmed Problem Secondary hypertension (68643523) Secondary hypertension, unspecified (I15.9) Active confirmed Problem Gastro-esophageal reflux disease without esophagitis (997144014) Gastro-esophageal reflux disease without esophagitis (K21.9) Active confirmed Problem Osteoarthritis of knee (004897707) Bilateral primary osteoarthritis of knee (M17.0) Active confirmed Problem Primary osteoarthritis (049680220) Unilateral primary osteoarthritis, right knee (M17.11) Active confirmed Problem Overactive bladder (189318250) Overactive bladder (N32.81) Active confirmed Problem Dysphagia (20409298) Dysphagia, unspecified (R13.10) Active confirmed Problem Abnormal gait (15770610) Other abnormalities of gait and mobility (R26.89) Active confirmed Problem Lack of coordination (803083165) Other lack of coordination (R27.8) Active confirmed Problem Recurrent falls (594085204) Repeated falls (R29.6) Active confirmed Problem Cognitive communication disorder (985627896) Cognitive communication deficit (R41.841) Active confirmed Problem Vitamin D deficiency (78586006) Vitamin D deficiency (E55.9) Active confirmed Problem Lymphedema (31808516) Lymphedema (I89.0) Active confirmed Problem Generalized anxiety disorder (98060799) ENRIQUE (generalized anxiety disorder) (F41.1) Active confirmed Problem Sleep apnea (68135193) Sleep apnea in adult (G47.30) Active confirmed Problem Osteoarthritis of knee (524265491) Primary osteoarthritis of both knees (M17.0) Active confirmed Problem Recurrent falls (036521107) Falls frequently (R29.6) Active confirmed Problem Lymphedema (701552249) Lymphedema of both lower extremities (I89.0) Active confirmed Vital Signs Heart Rate 94 /min 01/31/2025 Temperature 97.7 degrees Fahrenheit 01/31/2025 Respiratory Rate 18 /min 01/31/2025 Height-cm 162.56 cm 01/25/2025 Oximetry 98 % 01/31/2025 Blood pressure diastolic 76 mm Hg 01/31/2025 Weight-kg 106.14 kg 01/23/2025 Height 64 in 01/25/2025 Blood pressure systolic 142 mm Hg 01/31/2025 Weight 234 lbs 01/23/2025 BMI 40.16 kg/m2 01/23/2025 Encounters Encounter Location [place] [address] 11/10/2024 KILEY WARD Acute pain R52 and Physical deconditioning R53.[address] [address] 11/13/2024 Christel David Physical deconditioning R53.81 ; Falls frequently R29.6 ; Secondary hypertension, unspecified I15.9 ; Lymphedema of both lower extremities I89.0 ; Epilepsy, unspecified, not intractable, without status epilepticus G40.909 and Vomiting, unspecified R11.10 [place] [address] 11/17/2024 Maribel Sarah Physical deconditioning R53.81 ; Primary osteoarthritis of both knees M17.0 ; Lymphedema of both lower extremities I89.0 ; Epilepsy, unspecified, not intractable, without status epilepticus G40.909 and Secondary hypertension, unspecified I15.[address] [address] 11/23/2024 Maribel Sarah Physical deconditioning R53.81 ; Primary osteoarthritis of both knees M17.0 ; Lymphedema of both lower extremities I89.0 ; Epilepsy, unspecified, not intractable, without status epilepticus G40.909 ; Secondary hypertension, unspecified I15.9 and Hypokalemia E87.6 [place] [address] 11/30/2024 Christel David Physical deconditioning R53.81 ; Falls frequently R29.6 ; Secondary hypertension, unspecified I15.9 ; Primary osteoarthritis of both knees M17.0 ; Lymphedema of both lower extremities I89.0 and Sleep apnea in adult G47.30 [place] [address] 12/04/2024 Christel David Physical deconditioning R53.81 ; Falls frequently R29.6 ; Secondary hypertension, unspecified I15.9 ; Primary osteoarthritis of both knees M17.0 ; Lymphedema of both lower extremities I89.0 ; Sleep apnea in adult G47.30 and Acute pain R52 [place] [address] 12/12/2024 Maribel Sarah Physical deconditioning R53.81 ; Primary osteoarthritis of both knees M17.0 ; Lymphedema of both lower extremities I89.0 ; Epilepsy, unspecified, not intractable, without status epilepticus G40.909 ; Secondary hypertension, unspecified I15.9 and Gastro-esophageal reflux disease without esophagitis K21.[address] [address] 12/19/2024 Maribel Sarah Physical deconditioning R53.81 ; Primary osteoarthritis of both knees M17.0 ; Lymphedema of both lower extremities I89.0 ; Epilepsy, unspecified, not intractable, without status epilepticus G40.909 ; Secondary hypertension, unspecified I15.9 and Gastro-esophageal reflux disease without esophagitis K21.9 [place] [address] 12/26/2024 Maribel Sarah Acute UTI (urinary tract infection) N39.0 and Acute dehydration E86.[address] [place] [address] 12/29/2024 Maribel Sarah Physical deconditioning R53.81 ; Primary osteoarthritis of both knees M17.0 ; Lymphedema of both lower extremities I89.0 ; Epilepsy, unspecified, not intractable, without status epilepticus G40.909 ; Secondary hypertension, unspecified I15.9 and Gastro-esophageal reflux disease without esophagitis K21.9 [place] [address] 01/02/2025 Maribel Sarah Physical deconditioning R53.81 ; Primary osteoarthritis of both knees M17.0 ; Lymphedema of both lower extremities I89.0 ; Epilepsy, unspecified, not intractable, without status epilepticus G40.909 ; Secondary hypertension, unspecified I15.9 and Gastro-esophageal reflux disease without esophagitis K21.9 [place] [address] 01/04/20[place] [address] 01/09/2025 Maribel Sarah Physical deconditioning R53.81 ; Primary osteoarthritis of both knees M17.0 ; Lymphedema of both lower extremities I89.0 ; Epilepsy, unspecified, not intractable, without status epilepticus G40.909 ; Secondary hypertension, unspecified I15.9 ; Gastro-esophageal reflux disease without esophagitis K21.9 ; Diarrhea, unspecified R19.7 and Vitamin D deficiency, unspecified E55[place]9 [place] [address] 01/16/2025 Maribel Sarah Subdural hematoma S06.5XAA and Tremor of both hands [place]25[place]1 [place] [address] 01/18/2025 Maribel Sarah Physical deconditioning R53.81 ; Primary osteoarthritis of both knees M17.0 ; Lymphedema of both lower extremities I89.0 ; Epilepsy, unspecified, not intractable, without status epilepticus G40.909 ; Secondary hypertension, unspecified I15.9 ; Gastro-esophageal reflux disease without esophagitis K21.9 ; Diarrhea, unspecified R19.7 and Vitamin D deficiency, unspecified E55[place]9 [place] [address] 01/23/2025 Maribel Sarah 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 [place] [address] [address] 01/25/2025 Maribel Sarah Physical deconditioning R53.81 ; Primary osteoarthritis of both knees M17.0 ; Lymphedema of both lower extremities I89.0 ; Epilepsy, unspecified, not intractable, without status epilepticus G40.909 ; Secondary hypertension, unspecified I15.9 ; Gastro-esophageal reflux disease without esophagitis K21.9 ; Diarrhea, unspecified R19.7 and Vitamin D deficiency, unspecified E55.[address] [address] 01/31/2025 Maribel Sarah Physical deconditioning R53.81 ; Primary osteoarthritis of both knees M17.0 ; Lymphedema of both lower extremities I89.0 ; Epilepsy, unspecified, not intractable, without status epilepticus G40.909 ; Secondary hypertension, unspecified I15.9 ; Gastro-esophageal reflux disease without esophagitis K21.9 ; Diarrhea, unspecified R19.7 and Vitamin D deficiency, unspecified E55.[address] [address] 11/10/[address] [address] 11/10/2024 [facility] [address] [phone] 11/19/2024 KILEY [facility] [address] [phone] 11/20/2024 KILEY WARD [place] [address] [address] 12/11/2024 KILEY [facility] [address] [phone] 12/17/2024 Maribel Sarah [address] [address] 12/18/[address] [address] 12/19/2024 Maribel [place] [address] [address] 12/20/2024 KILEY WARD [address] [place] [address] 12/20/2024 Maribel Sarah [facility] [address] [place] [address] 12/21/2024 Maribel Davis [facility] [address] [place] [address] 12/21/2024 Maribel [facility] [address] [place] [address] 12/25/2024 Maribel Davis [place] [address] [place] [address] 12/28/2024 Maribel Davis [facility] [address] [place] [address] 01/01/2025 Maribel Davis [place] [address] [place] [address] 01/03/2025 KILEY WARD [place] [address] [place] [address] 01/08/2025 Maribel Sarah [place] [address] [place] [address] 01/11/2025 Maribel Tyrel [place] [address] [place] [address] 01/12/2025 Maribel Sarah [place] [address] [place] [address] 01/15/2025 KILEY WARD [facility] [address] [place] [address] 01/15/2025 Christel David [facility] [address] [place] [address] 01/17/2025 Maribel Sarah [place] [address] [place] [address] 01/22/2025 Maribel Sarah [place] [address] [place] [address] 01/23/2025 Maribel Tyrel [facility] [address] [place] [address] 01/23/2025 Maribel Sarah [facility] [address] [place] [address] 01/24/2025 Maribel Sarah [facility] [address] [place] [address] 01/30/2025 [facility] [address] [phone] 01/31/2025 Maribel Sarah [facility] [address] [place] [address] 02/05/2025 KILEY WARD [facility] [address] [place] [address] 02/06/2025 Tracy Ramachandran Assessments Encounter Date Diagnosis (ICD Code) Assessment Notes Treatment Notes Treatment Clinical Notes Section Notes 11/10/2024 Physical deconditioning (ICD-10 - R53.81) 11/10/2024 Acute pain (ICD-10 - R52) 11/13/2024 Physical deconditioning (ICD-10 - R53.81) Continue to work with therapy to become stronger. 11/13/2024 Falls frequently (ICD-10 - R29.6) Continue to work with therapy to get stronger. 11/17/2024 Physical deconditioning (ICD-10 - R53.81) Patient is working with PT/OT for strengthening and mobility. Reports therapy is going well. Utilizes a wheelchair for ambulation. 11/17/2024 Primary osteoarthritis of both knees (ICD-10 - M17.0) Reports that she needs a knee replacement but can not get one until she looses weight. She reports her joints are stiff and painful. Not currently on any medications. 11/23/2024 Physical deconditioning (ICD-10 - R53.81) Patient is working with PT/OT for strengthening and mobility. Reports therapy is going ok, but is tired all the time. Utilizes a wheelchair for ambulation. 11/23/2024 Primary osteoarthritis of both knees (ICD-10 - M17.0) Reports that she needs a knee replacement but can not get one until she looses weight. She reports her joints are stiff and painful. Not currently on any medications. 11/30/2024 Physical deconditioning (ICD-10 - R53.81) Says that she's using her wheelchair & that therapy is going well & helping. 11/30/2024 Falls frequently (ICD-10 - R29.6) Continue to work with therapy to gain strength & get stronger. Assist her with going to the bathroom & wiping. 12/04/2024 Physical deconditioning (ICD-10 - R53.81) Says that she's using her wheelchair & that therapy is going well & helping. 12/04/2024 Falls frequently (ICD-10 - R29.6) Continue to work with therapy to gain strength & get stronger. Assist her with going to the bathroom & wiping. Make sure that call light is within reach. 12/12/2024 Physical deconditioning (ICD-10 - R53.81) Patient is working with PT/OT for strengthening and mobility. Reports therapy is going ok, but is tired all the time. Utilizes a wheelchair for ambulation. 12/12/2024 Primary osteoarthritis of both knees (ICD-10 - M17.0) Reports that she needs a knee replacement but can not get one until she looses weight. She reports her joints are stiff and painful. Not currently on any medications. 12/19/2024 Physical deconditioning (ICD-10 - R53.81) Patient is working with PT/OT for strengthening and mobility. Reports therapy is going ok. Utilizes a wheelchair for ambulation. She reports he is coming today for a training day. 12/26/2024 Acute UTI (urinary tract infection) (ICD-10 - N39.0) She was admitted to [facility] from 12/20/2024 to 12/25/2024. She was sent there due to weakness. It was revealed that she has a UTI and dehydration. She was treated with ceftriaxone in the hospital and discharged on Cephalexin 500 mg q12 hours x5 days. She was also found to have JERRY at admission with the creatine of 1.86. On 12/24,. It has come down to 1.11 after fluid replacement. 12/26/2024 Acute dehydration (ICD-10 - E86.0) She was admitted to [facility] from 12/20/2024 to 12/25/2024. She was sent there due to weakness. It was revealed that she has a UTI and dehydration. She was treated with ceftriaxone in the hospital and discharged on Cephalexin 500 mg q12 hours x5 days. She was also found to have JERRY at admission with the creatine of 1.86. On 12/24,. It has come down to 1.11 after fluid replacement. 12/29/2024 Physical deconditioning (ICD-10 - R53.81) Patient is working with PT/OT for strengthening and mobility. Reports therapy is going ok. Utilizes a wheelchair for ambulation. 01/02/2025 Physical deconditioning (ICD-10 - R53.81) Patient is working with PT/OT for strengthening and mobility. Reports therapy is going ok. Utilizes a wheelchair for ambulation. 01/09/2025 Physical deconditioning (ICD-10 - R53.81) Patient is working with PT/OT for strengthening and mobility. Reports therapy is going ok. Utilizes a wheelchair for ambulation. 01/09/2025 Primary osteoarthritis of both knees (ICD-10 - M17.0) Reports that she needs a knee replacement but can not get one until she looses weight. She reports her joints are stiff and painful. Not currently on any medications. 01/16/2025 Subdural hematoma (ICD-10 - S06.5XAA) She was admitted from 01/11/2025 to 01/12/2025 due a subdural hematoma. She had a fall at the residential, was found on the floor with the blood coming out of the back of her head and they were unable to get the bleeding to stop. Once at [facility], she was transferred [facility] to [facility] where she had a head CT, which showed a 4 mm subdural hematoma. The patient reports that she rolled out of bed. She was treated and discharged back to the facility once stable and has orders to follow-up with [facility] trauma on 02/09 for staple removal. A follow-up head CT and also follow-up with the nurse practitioner. She does have four sandra noted to the back of her head. 01/16/2025 Tremor of both hands (ICD-10 - R25.1) C/O increased shaking/tremor in hands and would like to see a neurologist. Order given for neurologist referral due to increased shaking/tremors. 01/18/2025 Physical deconditioning (ICD-10 - R53.81) Patient is working with PT/OT for strengthening and mobility. Reports therapy is going ok. Utilizes a wheelchair for ambulation. 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 At the ED it was revealed that the patient had, had a tooth extracted but the patient nor spouse had relayed they information to the facility. She was diagnosed with a dry socket and discharged back to the facility with orders for chlorexidine mouthwash 15ml BID, Augmentin 875/125mg BID x 10 days, and hydrocodone 5/325mg q6hr PRN. She reports that the pain is slightly better. 01/25/2025 Physical deconditioning (ICD-10 - R53.81) Patient is working with PT/OT for strengthening and mobility. Reports therapy is going ok. Utilizes a wheelchair for ambulation. 01/31/2025 Physical deconditioning (ICD-10 - R53.81) Patient is working with PT/OT for strengthening and mobility. Reports therapy is going ok. Utilizes a wheelchair for ambulation. 01/31/2025 Primary osteoarthritis of both knees (ICD-10 - M17.0) Reports that she needs a knee replacement but can not get one until she looses weight. She reports her joints are stiff and painful. Not currently on any medications. 01/31/2025 Lymphedema of both lower extremities (ICD-10 - I89.0) When at home she uses her lymphedema suit and it helps with all the swelling. non-pitting edema noted to BLE. SAM wraps in place. Encouraged to elevated feet on side of the. On HCTZ but no other diuretic at this time, does not want to do any other diuretics at this time. 01/25/2025 Primary osteoarthritis of both knees (ICD-10 - M17.0) Reports that she needs a knee replacement but can not get one until she looses weight. She reports her joints are stiff and painful. Not currently on any medications. 01/18/2025 Primary osteoarthritis of both knees (ICD-10 - M17.0) Reports that she needs a knee replacement but can not get one until she looses weight. She reports her joints are stiff and painful. Not currently on any medications. 01/09/2025 Lymphedema of both lower extremities (ICD-10 - I89.0) Patient reports that her legs are more swollen than normal. When at home she uses her lymphedema suit and it helps with all the swelling. non-pitting edema noted to BLE. SAM wraps in place. Encouraged to elevated feet on side of the. On HCTZ but no other diuretic at this time, does not want to do any other diuretics at this time. 01/02/2025 Primary osteoarthritis of both knees (ICD-10 - M17.0) Reports that she needs a knee replacement but can not get one until she looses weight. She reports her joints are stiff and painful. Not currently on any medications. 12/29/2024 Primary osteoarthritis of both knees (ICD-10 - M17.0) Reports that she needs a knee replacement but can not get one until she looses weight. She reports her joints are stiff and painful. Not currently on any medications. 12/19/2024 Primary osteoarthritis of both knees (ICD-10 - M17.0) Reports that she needs a knee replacement but can not get one until she looses weight. She reports her joints are stiff and painful. Not currently on any medications. 12/12/2024 Lymphedema of both lower extremities (ICD-10 - I89.0) Patient reports that her legs are more swollen than normal. When at home she uses her lymphedema suit and it helps with all the swelling. non-pitting edema noted to BLE. SAM wraps in place. Encouraged to elevated feet on side of the. On HCTZ but no other diuretic at this time, does not want to do any other diuretics at this time. 12/04/2024 Secondary hypertension, unspecified (ICD-10 - I15.9) Well managed on current medication regimen. Continue current treatment plan and monitoring. 11/23/2024 Lymphedema of both lower extremities (ICD-10 - I89.0) Patient reports that her legs are more swollen than normal. When at home she uses her lymphedema suit and it helps with all the swelling. non-pitting edema noted to BLE. Encouraged to elevated feet on side of the. On HCTZ but no other diuretic at this time, does not want to do any other diuretics at this time. 11/30/2024 Secondary hypertension, unspecified (ICD-10 - I15.9) Well managed on current medication regimen. Continue current treatment plan and monitoring. 11/17/2024 Lymphedema of both lower extremities (ICD-10 - I89.0) Patient reports that her legs are more swollen than normal. When at home she uses her lymphedema suit and it helps with all the swelling. +4 edema noted to BLE. Encouraged to elevated feet on side of the. On HCTZ but no other diuretic at this time, does not want to do any other diuretics at this time. 11/13/2024 Secondary hypertension, unspecified (ICD-10 - I15.9) Well managed on current medication regimen. Continue current treatment plan and monitoring. 11/13/2024 Lymphedema of both lower extremities (ICD-10 - I89.0) Continue to wrap BLE with sam wraps PRN, elevate BLE when sitting. 11/17/2024 Epilepsy, unspecified, not intractable, without status epilepticus (ICD-10 - G40.909) No reports of seizure activity reported by staff or patient. Not currently on seizure medications. 11/30/2024 Primary osteoarthritis of both knees (ICD-10 - M17.0) Continue working with therapy & taking medication as needed for pain/discomfort. 11/23/2024 Epilepsy, unspecified, not intractable, without status epilepticus (ICD-10 - G40.909) No reports of seizure activity reported by staff or patient. Not currently on seizure medications. 12/19/2024 Lymphedema of both lower extremities (ICD-10 - I89.0) Patient reports that her legs are more swollen than normal. When at home she uses her lymphedema suit and it helps with all the swelling. non-pitting edema noted to BLE. SAM wraps in place. Encouraged to elevated feet on side of the. On HCTZ but no other diuretic at this time, does not want to do any other diuretics at this time. 12/12/2024 Epilepsy, unspecified, not intractable, without status epilepticus (ICD-10 - G40.909) No reports of seizure activity reported by staff or patient. Not currently on seizure medications. 12/29/2024 Lymphedema of both lower extremities (ICD-10 - I89.0) Patient reports that her legs are more swollen than normal. When at home she uses her lymphedema suit and it helps with all the swelling. non-pitting edema noted to BLE. SAM wraps in place. Encouraged to elevated feet on side of the. On HCTZ but no other diuretic at this time, does not want to do any other diuretics at this time. 01/02/2025 Lymphedema of both lower extremities (ICD-10 - I89.0) Patient reports that her legs are more swollen than normal. When at home she uses her lymphedema suit and it helps with all the swelling. non-pitting edema noted to BLE. SAM wraps in place. Encouraged to elevated feet on side of the. On HCTZ but no other diuretic at this time, does not want to do any other diuretics at this time. 01/09/2025 Epilepsy, unspecified, not intractable, without status epilepticus (ICD-10 - G40.909) No reports of seizure activity reported by staff or patient. Not currently on seizure medications. 01/18/2025 Lymphedema of both lower extremities (ICD-10 - I89.0) Patient reports that her legs are more swollen than normal. When at home she uses her lymphedema suit and it helps with all the swelling. non-pitting edema noted to BLE. SAM wraps in place. Encouraged to elevated feet on side of the. On HCTZ but no other diuretic at this time, does not want to do any other diuretics at this time. 01/25/2025 Lymphedema of both lower extremities (ICD-10 - I89.0) When at home she uses her lymphedema suit and it helps with all the swelling. non-pitting edema noted to BLE. SAM wraps in place. Encouraged to elevated feet on side of the. On HCTZ but no other diuretic at this time, does not want to do any other diuretics at this time. 12/04/2024 Primary osteoarthritis of both knees (ICD-10 - M17.0) Continue working with therapy & taking medication as needed for pain/discomfort. 01/31/2025 Epilepsy, unspecified, not intractable, without status epilepticus (ICD-10 - G40.909) No reports of seizure activity reported by staff or patient. Not currently on seizure medications. 01/31/2025 Secondary hypertension, unspecified (ICD-10 - I15.9) BP stable. Well managed on current medication regimen. Continue with current treatment plan and monitoring. 01/25/2025 Epilepsy, unspecified, not intractable, without status epilepticus (ICD-10 - G40.909) No reports of seizure activity reported by staff or patient. Not currently on seizure medications. 01/18/2025 Epilepsy, unspecified, not intractable, without status epilepticus (ICD-10 - G40.909) No reports of seizure activity reported by staff or patient. Not currently on seizure medications. 01/09/2025 Secondary hypertension, unspecified (ICD-10 - I15.9) BP stable. Well managed on current medication regimen. Continue with current treatment plan and monitoring. 01/02/2025 Epilepsy, unspecified, not intractable, without status epilepticus (ICD-10 - G40.909) No reports of seizure activity reported by staff or patient. Not currently on seizure medications. 12/12/2024 Secondary hypertension, unspecified (ICD-10 - I15.9) BP stable. Well managed on current medication regimen. Continue with current treatment plan and monitoring. 12/29/2024 Epilepsy, unspecified, not intractable, without status epilepticus (ICD-10 - G40.909) No reports of seizure activity reported by staff or patient. Not currently on seizure medications. 11/23/2024 Secondary hypertension, unspecified (ICD-10 - I15.9) BP stable. Well managed on current medication regimen. Continue with current treatment plan and monitoring. 11/30/2024 Lymphedema of both lower extremities (ICD-10 - I89.0) Monitor both lower extremities & elevate to help decrease the swelling. 12/19/2024 Epilepsy, unspecified, not intractable, without status epilepticus (ICD-10 - G40.909) No reports of seizure activity reported by staff or patient. Not currently on seizure medications. 12/04/2024 Lymphedema of both lower extremities (ICD-10 - I89.0) Monitor both lower extremities & elevate to help decrease the swelling. Continue to SAM wrap from toes to knees to help decrease the swelling. 11/17/2024 Secondary hypertension, unspecified (ICD-10 - I15.9) BP stable. Well managed on current medication regimen. Continue with current treatment plan and monitoring. 11/13/2024 Epilepsy, unspecified, not intractable, without status epilepticus (ICD-10 - G40.909) Well managed on current medication regimen. Continue current treatment plan and monitoring. 11/13/2024 Vomiting, unspecified (ICD-10 - R11.10) Continue to montior pt taking all her morning meds & if she vomits after breakfast, may need to adjust medication times. 11/23/2024 Hypokalemia (ICD-10 - E87.6) 11/11- K+ 2.8- at time of results ordered KCL 20meq x 3 days and then repeat K+ level. 11/20- K+ 2.7, ordered 40meq BID x 5 days and then repeat K+ 11/24. Nurse informed this provider today the patient has been refusing the KCL. She has been educated by the nurse and this provider on the importance of taking the KCL. She reports that she is not going to take it. told the nurse the she is very non-compliant with taking any of her medications. _update when 11/24 K+ is resulted. 12/04/2024 Sleep apnea in adult (ICD-10 - G47.30) She says that she doesn't wear the CPAP at night. Encourage her to wear the CPAP at night & assist with putting it on if needed. 12/19/2024 Secondary hypertension, unspecified (ICD-10 - I15.9) BP stable. Well managed on current medication regimen. Continue with current treatment plan and monitoring. 11/30/2024 Sleep apnea in adult (ICD-10 - G47.30) She says that she doesn't wear the CPAP at night. Encourage her to wear the CPAP at night & assist with putting it on if needed. 12/29/2024 Secondary hypertension, unspecified (ICD-10 - I15.9) BP stable. Well managed on current medication regimen. Continue with current treatment plan and monitoring. 12/12/2024 Gastro-esophageal reflux disease without esophagitis (ICD-10 - K21.9) C/O acid reflux and would like to have protonix, nurse reports that she is on protonix but she refuses most of her medications, and that is one of them. 01/02/2025 Secondary hypertension, unspecified (ICD-10 - I15.9) BP stable. Well managed on current medication regimen. Continue with current treatment plan and monitoring. 01/09/2025 Gastro-esophageal reflux disease without esophagitis (ICD-10 - K21.9) No complaints today. Well managed on current medication regimen. Continue with current treatment plan and monitoring. 01/18/2025 Secondary hypertension, unspecified (ICD-10 - I15.9) BP stable. Well managed on current medication regimen. Continue with current treatment plan and monitoring. 01/25/2025 Secondary hypertension, unspecified (ICD-10 - I15.9) BP stable. Well managed on current medication regimen. Continue with current treatment plan and monitoring. 01/31/2025 Gastro-esophageal reflux disease without esophagitis (ICD-10 - K21.9) No complaints today. Well managed on current medication regimen. Continue with current treatment plan and monitoring. 01/31/2025 Diarrhea, unspecified (ICD-10 - R19.7) The patient is still complaining of diarrhea at this time, would like something stronger. The schedule Imodium did not help. D/C Imodium and start Lomotil 1 tab TID PRN. 01/25/2025 Gastro-esophageal reflux disease without esophagitis (ICD-10 - K21.9) No complaints today. Well managed on current medication regimen. Continue with current treatment plan and monitoring. 01/18/2025 Gastro-esophageal reflux disease without esophagitis (ICD-10 - K21.9) No complaints today. Well managed on current medication regimen. Continue with current treatment plan and monitoring. 01/09/2025 Diarrhea, unspecified (ICD-10 - R19.7) patient reports diarrhea [id number], Imodium helps 01/02/2025 Gastro-esophageal reflux disease without esophagitis (ICD-10 - K21.9) No complaints today. Well managed on current medication regimen. Continue with current treatment plan and monitoring. 12/29/2024 Gastro-esophageal reflux disease without esophagitis (ICD-10 - K21.9) No complaints today. Well managed on current medication regimen. Continue with current treatment plan and monitoring. 12/19/2024 Gastro-esophageal reflux disease without esophagitis (ICD-10 - K21.9) No complaints today. Well managed on current medication regimen. Continue with current treatment plan and monitoring. 12/04/2024 Acute pain (ICD-10 - R52) Give pain medication as needed. Monitor if the medication is not helping or if she continues to have increased pain. 01/09/2025 Vitamin D deficiency, unspecified (ICD-10 - E55.9) Draw Vit-D and Vit-B12 on next lab day. Once those result, I will look at discontinuing any medication that are not necessary. 01/18/2025 Diarrhea, unspecified (ICD-10 - R19.7) The patient is still complaining of diarrhea at this time, would like something stronger. Explained to the patient that we can try doing Imodium scheduled in the a.m. to see if it helps, so order given to start Imodium two tablets in the morning scheduled and can have two tablets p.r.n. throughout the day and if diarrhea continues, please update provider. 01/25/2025 Diarrhea, unspecified (ICD-10 - R19.7) The patient is still complaining of diarrhea at this time, would like something stronger. Explained to the patient that we can try doing Imodium scheduled in the a.m. to see if it helps, so order given to start Imodium two tablets in the morning scheduled and can have two tablets p.r.n. throughout the day and if diarrhea continues, please update provider. 01/31/2025 Vitamin D deficiency, unspecified (ICD-10 - E55.9) On 01/10/2025, vitamin B12 was greater than 2,000 and thevitamin D level was greater than 154. Atthat time, order was given to discontinue vitamin B and vitamin D. 01/25/2025 Vitamin D deficiency, unspecified (ICD-10 - E55.9) On 01/10/2025, vitamin B12 was greater than 2,000 and thevitamin D level was greater than 154. Atthat time, order was given to discontinue vitamin B and vitamin D. 01/18/2025 Vitamin D deficiency, unspecified (ICD-10 - E55.9) On 01/10/2025, vitamin B12 was greater than 2,000 and thevitamin D level was greater than 154. Atthat time, order was given to discontinue vitamin B and vitamin D. 11/13/2024 Other Continue current treatment plan.Staff to continue to monitor and report any changes.Patient education provided and questions/concern s addressed.Follow up in one week unless necessary sooner.Please refer to facility EHR for current and accurate medication list and treatments. Reviewed HIPAA Right to Privacy Practices with patient/family/ca regiver. 11/17/2024 Other Continue current treatment plan.Staff to continue to monitor and report any changes.Patient education provided and questions/concern s addressed.Follow up in one week unless necessary sooner.Please refer to facility EHR for current and accurate medication list and treatments. Reviewed HIPAA Right to Privacy Practices with patient/family/ca regiver. 11/23/2024 Other Continue current treatment plan.Staff to continue to monitor and report any changes.Patient education provided and questions/concern s addressed.Follow up in one week unless necessary sooner.Please refer to facility EHR for current and accurate medication list and treatments. Reviewed HIPAA Right to Privacy Practices with patient/family/ca regiver. 11/30/2024 Other Continue curren t treatment plan.Staff to continue to monitor and report any changes.Patient education provided and questions/concern s addressed.Follow up in one week unless necessary sooner.Reviewed HIPAA Right to Privacy Practices with patient/family/ca regiver. 12/04/2024 Other Continue curren t treatment plan.Staff to continue to monitor and report any changes.Patient education provided and questions/concern s addressed.Follow up in one week unless necessary sooner.Reviewed HIPAA Right to Privacy Practices with patient/family/ca regiver. 12/12/2024 Other Continue curren t treatment plan.Staff to continue to monitor and report any changes.Patient education provided and questions/concern s addressed.Follow up in one week unless necessary sooner.Reviewed HIPAA Right to Privacy Practices with patient/family/ca regiver. 12/19/2024 Other Continue curren t treatment plan.Staff to continue to monitor and report any changes.Patient education provided and questions/concern s addressed.Follow up in one week unless necessary sooner.Reviewed HIPAA Right to Privacy Practices with patient/family/ca regiver. 12/26/2024 Other Continue current treatment plan. Staff to continue to monitor and report any changes. Patient education provided and questions/concern s addressed. Follow up in 1 week unless necessary sooner. Reviewed HIPAA Right to Privacy Practices with patient/family/ca regiver. 12/29/2024 Other Continue curren t treatment plan.Staff to continue to monitor and report any changes.Patient education provided and questions/concern s addressed.Follow up in one week unless necessary sooner.Reviewed HIPAA Right to Privacy Practices with patient/family/ca regiver. 01/02/2025 Other Continue current treatment plan. Staff to continue to monitor and report any changes. Patient education provided and questions/concern s addressed. Follow up in one week unless necessary sooner. Reviewed HIPAA Right to Privacy Practices with patient/family/ca regiver. 01/09/2025 Other Continue current treatment plan. Staff to continue to monitor and report any changes. Patient education provided and questions/concern s addressed. Follow up in 1 week unless necessary sooner. Reviewed HIPAA Right to Privacy Practices with patient/family/ca regiver. 01/16/2025 Other Continue current treatment plan. Staff to continue to monitor and report any changes. Patient education provided and questions/concern s addressed. Follow up in 1 week unless necessary sooner. Reviewed HIPAA Right to Privacy Practices with patient/family/ca regiver. 01/18/2025 Other Continue current treatment plan. Staff to continue to monitor and report any changes. Patient education provided and questions/concern s addressed. Follow up in 1 week unless necessary sooner. Reviewed HIPAA Right to Privacy Practices with patient/family/ca regiver. 01/23/2025 Other Continue current treatment plan. Staff to continue to monitor and report any changes. Patient education provided and questions/concern s addressed. Follow up in 1 week unless necessary sooner. Reviewed HIPAA Right to Privacy Practices with patient/family/ca regiver. 01/25/2025 Other Continue current treatment plan. Staff to continue to monitor and report any changes. Patient education provided and questions/concern s addressed. Follow up in 1 week unless necessary sooner. Reviewed HIPAA Right to Privacy Practices with patient/family/ca regiver. 01/31/2025 Other Continue current treatment plan. Staff to continue to monitor and report any changes. Patient education provided and questions/concern s addressed. Follow up in 1 week unless necessary sooner. Reviewed HIPAA Right to Privacy Practices with patient/family/ca regiver. Plan Of Treatment No Information Insurance Providers Payer Name Payer Address Payer Phone Subscriber Number Group Number Insured Name Patient Relationship to Insured Coverage Start Date Coverage End Date [facility] Benefits Plan [address] [place] [address] [id number] Ankita Su Leydi Self - patient is the insured Medical (General) History Medical History History ICD Code Bilateral primary osteoarthritis of knee M17.0 Lymphedema I89.0 Obesity, unspecified E66.9 Epilepsy, unspecified, not intractable, without status epilepticus G40.909 Muscle weakness (generalized) M62.81 Other abnormalities of gait and mobility R26.89 Secondary hypertension, unspecified I15. 9 Insomnia, unspecified G47.00 Hypokalemia E87.6 Dysphagia, unspecified R13.10 Edema, unspecified R60.9 Cognitive communication deficit R41.841 Diarrhea, unspecified R19.7 Overactive bladder N32.81 Shortness of breath R06.02 Nasal congestion R09.81 ENRIQUE (generalized anxiety disorder) F41.1 Anemia, unspecified D64.9 Ascorbic acid deficiency E54 Vitamin D deficiency E55.9 Essential (primary) hypertension I10 Gastro-esophageal reflux disease without esophagitis K21.9 Pain R52 Depression, unspecified F32.A Other lack of coordination R27.8 Repeated falls R29.6 Unilateral primary osteoarthritis, right knee M17.11 Surgical History Surgery Date(Month/Year) foot surgery knee arthroplasty
--- OUTSIDE RECORDS SUMMARY | 2025-03-04 18:00 | XMS_ITS | Encounter Summary ---
Author Organization [facility] Address [address] [place] [address] Care Team Providers Care Title I Assistant Name Role Phone JaviersvetlanaYannick talleyian Primary Care Provider Encounter Details Date Type Department Care Team (Late st Contact Info) Description 07/30/2005 Outpatient Historical [facility] Nikolas Bowie Jr., [place] [facility] [place] [address] [place], Authorized P NO ADDRESS ON FILE UNSPECIFIED VIRAL INFECTION (Primary Dx) Social History Tobacco Use Types Packs/Day Years Used Date Smoking Tobacco: Never Assessed Comments Unknown Sex and Gender Information Value Date Recorded Sex Assigned at Not on file Legal Sex Female 4:51 AM TOOL SUPERVISOR Gender Identity Not on file Sexual Orientation Not on file documented as of this encounter Plan of Treatment Upcoming Encounters Date Type Department Care Team (Late st Contact Info) Description 09/05/2025 10:00 AM TOOL SUPERVISOR Office Visit [facility] Oncology and Hematology - [place] [address] [facility] [address] [place] [address] Saul Perez MD [address] [facility] [address] [place] [address] documented as of this encounter Procedures Procedure Name Priority Date/Time Associated Diagnosis Comments CBC WITH DIFFERENTIAL Routine 07/30/2005 4:06 PM TOOL SUPERVISOR CBC WITH DIFFERENTIAL Routine 07/30/2005 4:06 PM TOOL SUPERVISOR documented in this encounter Results * (ABNORMAL) CBC WITH DIFFERENTIAL (07/30/2005 4:06 PM TOOL SUPERVISOR) Pathologist [facility] NEUTROPHILS 83(H) 45 - 70 % INTERFAC [...] 0.20 K/uL INTERFACE SYSTEM 07/30/2005 4:06 PM TOOL SUPERVISOR Historical Provider HEMATOLOGY ORDERABLES Final Result INTERFACE SYSTEM Refer to clinic/hospital department * (ABNORMAL) CBC WITH DIFFERENTIAL (07/30/2005 4:06 PM TOOL SUPERVISOR) Pathologist [facility] WBC 12.9(H) 4.0 - 9.8 K/uL INTERFACE [...] 12.4 fL INTERFACE SYSTEM 07/30/2005 4:06 PM TOOL SUPERVISOR us Historical Provider HEMATOLOGY ORDERABLES Final Result INTERFACE SYSTEM Refer to clinic/hospital department documented in this encounter Visit Diagnoses Diagnosis Unspecified viral infection, in conditions classified elsewhere and of unspecified site- Primary documented in this encounter Care Teams Title I Assistant Relationship Specialty Start Date End Date Yannick Umanzor DO [address] [facility] [address] [place] [address] PCP - General Internal Medicine 11/07/21 documented as of this encounter
--- OUTSIDE RECORDS SUMMARY | 2025-03-04 18:00 | XMS_ITS | Patient Health Record ---
Author Organization [facility] Address [address] [place], [place] [id number] Care Team Providers Care Policewoman Name Role Phone DEE CAMACHO Unavailable [phone] Yannick Umanzor Unavailable Unavailable Allergies No Known [...] [facility] [address] [place] [phone] 03/30/2024 DEE CAMACHO Fungal infection of nail B35.1 ; Pain in right toe(s) M79.674 ; Pain in left toe(s) M79.675 and Unspecified atherosclerosis of [place] arteries of extremities, bilateral legs I70.203 [facility] [address] [place], [place] [id number] 06/01/2024 DEE CAMACHO Atherosclerosis of [place] arteries of extremities with intermittent claudication, bilateral legs I70.213 ; Onychomycosis B35.1 ; Pain in right toe(s) M79.674 and Pain in left toe(s) M79.675 [facility] [address] [place], [place] [id number] 08/03/2024 DEE CAMACHO Atherosclerosis of [place] arteries of extremities with intermittent claudication, bilateral legs I70.213 ; Onychomycosis B35.1 ; Pain in right toe(s) M79.674 and Pain in left toe(s) M79.675 [facility] [address] [place], [place] [id number] 11/02/2024 DEE CAMACHO Atherosclerosis of [place] arteries of extremities with intermittent claudication, bilateral legs I70.213 ; Onychomycosis B35.1 ; Pain in right toe(s) M79.674 and Pain in left toe(s) M79.675 Assessments Encounter Date Diagnosis (ICD Code) Assessment Notes Treatment Notes Treatment Clinical Notes Section Notes 03/30/2024 Fungal infection of nail (ICD-10 - B35.1) 06/01/2024 Atherosclerosis of [place] arteries of extremities with intermittent claudication, bilateral legs (ICD-10 - I70.213) 06/01/2024 Onychomycosis (ICD-10 - B35.1) Nails 1-5 Bilateral were debrided extensively with nail nippers and emery board, reducing length and girth to pink healthy tissue with any subungual debris and necrotic tissue removed 08/03/2024 Atherosclerosis of [place] arteries of extremities with intermittent claudication, bilateral legs (ICD-10 - I70.213) 11/02/2024 Atherosclerosis of [place] arteries of extremities with intermittent claudication, bilateral [...] (ICD-10 - M79.675) 03/30/2024 Unspecified atherosclerosis of [place] arteries of extremities, bilateral legs (ICD-10 - [...] Coverage End Date [employer] PPO [address] [place], [place] [id number] Ankita VALE PFEIFFER Self - patient is the insured Medicare Part B [place] [address] [place] [address] [id number] VALE PFEIFFER Self - patient is the insured Medical (General) History Medical History History ICD Code acid reflux artificial joint fibromyalgia GERD Respiratory disease Sleep apnea Back Trouble Psychiatric Disorder hypertension Surgical History Surgery Date(Month/Year) Brain surgery Right foot surgery Right wrist surgery Bladder surgery
--- OUTSIDE RECORDS SUMMARY | 2025-03-04 18:00 | XMS_ITS ---
Author Organization [facility] Address [address] [place], [place] [id number] Care Team Providers Care Curriculum Development Coordinator Name Role Phone DEE GEE Unavailable [phone] Yannick Umanzor Unavailable Unavailable REASON FOR VISIT *General care Encounters Encounter Location Date Provider Diagnosis [facility] [place] [address] [place], [place] [id number] 01/04/2025 DEE GEE Plan Of Treatment No Information Progress Notes * VALE PFEIFFERDOB:1955 (69 yo F)Acc No.[id number]:01/04/2025 Patient: Get PEÑAVALE Provider: Melisa Gee DPM :1955 A ge:69 Y S ex:Female Date:01/04/2025 Address:[address] [place], [place] [id number] Subjective: * Chief Complaints: * 1 . *General care. * Medical History: Objective: * Vitals: Assessment: Plan: * Treatment: * Billing Information: * Visit Code: * Procedure Codes: * Electronic signature of DEE GEE DPM on 03/04/2025 at 06:00 PM CDT Sign off status: Pending * Provider: Melisa Gee DPM Date: 01/04/2025 Generated for Printi ng/Faxing/eTransmitting on: 03/04/2025 06:00 PM CDT
--- NOTE | 2025-03-04 18:12 | ED.GENADULT ---
HPI - General Adult General Chief complaint: Urogenital-Female Stated complaint: blood in urine Time Seen by Provider: 03/04/25 17:42 History of Present Illness HPI narrative: This is a 69-year-old female with encephalopathy who is comfort measures only and being should be placed in hospice presenting [facility] ER [facility] the [facility] for blood in her Castro as well as diarrhea. Patient is comfort measures only and is being placed on hospice. I discussed this with her and we agreed that we should not beperforming invasive testing or further measures to prolong her life outside of the basis of comfort. We will not be pursuing any testing at this time and she will be returned to the [facility] to be placed on hospice. Related Data Home Medications ?Medication ?Instructions ?Recorded ?Confirmed ?Last Taken ?Type acetaminophen 325 mg capsule 650 mg PO Q4H PRN pain (scale 12/20/24 02/07/25 Unknown History score 1-3) Allergies Allergy/AdvReac Type Severity Reaction Status Date / Time acyclovir (From Zovirax) Allergy Severe Hives Verified 02/07/25 18:44 Iodinated Contrast Media Allergy Intermediate Rash Verified 02/07/25 18:44 omeprazole (From Prilosec) AdvReac Intermediate hyperventil Verified 02/07/25 18:44 ate PMFSH Past Medical History Medical History CKD (chronic kidney disease) Nocturnal oxygen desaturation Body mass index (BMI) of 40.1-44.9 in adult Deafness in left ear JERED (iron deficiency anemia) Lymphedema Dysuria Fracture of left upper extremity Distal radius fracture, left July 2020 Shortness of Breath Decreased diffusion capacity History of tobacco abuse Exercise hypoxemia Brain tumor HTN (hypertension) Obstructive sleep apnea on CPAP Bipolar 1 disorder SIMEON (obstructive sleep apnea) With CPAP use GERD (gastroesophageal reflux disease) Depression Anxiety Surgical History Surgical History History of bladder suspension procedure March 2017 Hx of tonsillectomy History of brain surgery 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 She has 3 children. She is disabled. She quit smoking 5 years ago. The patient denies any marijuana alcohol or illicit drugs. Her is a durable power deputy attorney general for healthcare. Primary care physician: Dr. Yannick Umanzor Code status: Full code Smoking packs per day: 1 Smoking cigarettes per day: 20.0 Years smoked: 40 Smoking pack-years: 40.00 Smoking status: Former smoker Tobacco type: cigarettes Second hand tobacco smoke exposure: No Smoking end date: 08/23/14 Alcohol intake: never Substance use: never Substance use type: does not use Do You Feel Safe in your Home?: Yes Lack of Transportation: YES Lack of Food: Never True Current Housing: I Have Housing Concerned About Future Housing: No Difficulty Paying Gas/Electric Bills: No Difficulty Paying for Meds: No Currently Unemployed: No Education: Associate Degree Difficulty w/ Childcare or Family Care: No Living arrangements: with family Additional living arrangements comments: [facility] Occupation/Education: retired Additional occupation/education comments: 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 Gender identity (if verbalized by the patient): Female Spiritual care concerns: No Exam Narrative: APPEARANCE: A&O x1, very confused, unable to hold a conversation, no apparent distress Head: atraumatic. EYES: EOMI, NOSE: Atraumatic NECK: Trachea midline RESPIRATORY: No increased rate of breathing CARDIOVASCULAR: RRR, ABDOMINAL: Non-distended no abdominal tenderness MUSCULOSKELETAl: No obvious deformities NEURO: Alert. Moving 4/4 extremities SKIN:: Warm, dry. Normal color PSYCHIATRIC: Normal affect Course Vital Signs Vital signs: Vital Signs Temperature 98.1 F 03/04/25 17:23 Pulse Rate 85 03/04/25 17:23 Respiratory Rate 20 03/04/25 17:23 Blood Pressure 128/72 03/04/25 17:23 Pulse Oximetry 94 03/04/25 17:23 Oxygen Delivery Room Air 03/04/25 17:23 Temperature 98.1 F 03/04/25 17:23 Pulse Rate 85 03/04/25 17:23 Respiratory Rate 20 03/04/25 17:23 Blood Pressure 128/72 03/04/25 17:23 Pulse Oximetry 94 03/04/25 17:23 Oxygen Delivery Room Air 03/04/25 17:23 Medical Decision Making MDM Narrative Medical decision making narrative: -Course: 69-year-old female who is comfort measures only and being placed on hospice who was sent to the ER by a [facility] for hematuria and diarrhea. Patient is comfort measures only. She is in no apparent distress. She does not have any suprapubic pain or evidence of retention. Castro is draining. Her vital signs are stable. She is supposed to be on hospice. I spoke with her Mr. Su and he agrees that we should not perform invasive or painful testing to prolong her life. Patient will be discharged back to [facility] to be placed on hospice. Vital Signs Vital Signs: Vital Signs Temperature 98.1 F 03/04/25 17:23 Pulse Rate 85 03/04/25 17:23 Respiratory Rate 20 03/04/25 17:23 Blood Pressure 128/72 03/04/25 17:23 Pulse Oximetry 94 03/04/25 17:23 Oxygen Delivery Room Air 03/04/25 17:23 Temperature 98.1 F 03/04/25 17:23 Pulse Rate 85 03/04/25 17:23 Respiratory Rate 20 03/04/25 17:23 Blood Pressure 128/72 03/04/25 17:23 Pulse Oximetry 94 03/04/25 17:23 Oxygen Delivery Room Air 03/04/25 17:23 Discharge Plan Discharge Clinical Impression: Hematuria, Diarrhea Patient Disposition: Home Condition: Guarded Prognosis Instructions: Antibiotic Form Additional Instructions: Leydi is comfort measures only. She is to be placed on hospice. Further care should focus on comfort. Please refer to the hospice physician for further management. Patient Language: Faroese Prescriptions: No Action acetaminophen 325 mg capsule 650 mg PO Q4H PRN (Reason: pain (scale score 1-3)) (DME) Overnight Ox See Rx Instructions .Route .MEDSUPPLY Qty: 1 0RF Rx Instructions: Overnight Oximetry 4 L/Min BIPAP DX Code: G47.33 Length of Need: Lifetime DME:WILIAN FlemingI: [id number] albuterol sulfate 90 mcg/actuation HFA aerosol inhaler 1 - 2 puff inhalation Q4-6H PRN (Reason: shortness of breath or wheezing) Qty: 8.5 2RF Follow-up/Referrals: Hope,Nikolas Gonzales DO [Primary Care Provider] -
--- NOTE | 2025-03-04 18:16 | PCCCNOTE ---
03/04/25-Called down to the ED to f/u on the pt's Polst form. Last noted in the chart the form 10/30/21 states full code. Called the pt's in which he stated he wanted the pt to be a DNR. This verbal request was witnessed by myself and nurse Nikolas Cole RN. The spouse stated [facility] has and apt to come to the facility on 03/05 to admit to services. ED provider was updated on this status.-lois
[2025-03-04 18:46] VITALS: BP 119/60; PULSE 78; RESP 17; O2SAT 98
== END 2025-03-04 19:09 | disposition hospice, home (50) ==
PROVIDERS: Emergency Provider Emergency Medicine; PCP Internal Medicine
DX: R31.9 Hematuria, unspecified (principal); R19.7 Diarrhea, unspecified; Z51.5 Encounter for palliative care; I12.9 Hypertensive chronic kidney disease with stage 1 through stage 4 chronic kidney disease, or unspecified chronic kidney disease; N18.9 Chronic kidney disease, unspecified; I89.0 Lymphedema, not elsewhere classified; D50.9 Iron deficiency anemia, unspecified; G47.33 Obstructive sleep apnea (adult) (pediatric); F41.9 Anxiety disorder, unspecified; F32.A Depression, unspecified; Z96.652 Presence of left artificial knee joint; Z98.1 Arthrodesis status; Z98.84 Bariatric surgery status; Z87.891 Personal history of nicotine dependence; Z90.49 Acquired absence of other specified parts of digestive tract; R94.31 Abnormal electrocardiogram [ECG] [EKG]
CPT/HCPCS: 93005; 99283